=== PATIENT | male | born 1955 | race Caucasian/White ===

== ENCOUNTER 2018-06-18 12:29 | Emergency (ER) | payer MEDICARE, OTHER, SELFPAY ==
[2018-06-18 12:30] VITALS: BP 154/94; PULSE 56; RESP 14; TEMP 36.5; O2SAT 98; BMI 34.3
--- NOTE | 2018-06-18 13:06 | ED.DCSUM_ITS ---
- ER Visit Summary Date of Service: 06/18/18 Chief Complaint: [Redness and swelling to right side of face History of Present Illness: The patient is a 63 M [presents the emergency department with complaint of redness and swelling to the right side of his face ?3 days. Patient states that he initially thought he was getting a small pimple to the right cheek. Over last 24 hours he has had some increased redness and swelling. Patient was seen at primary care physician's office and sent to the ER for possible I&D of suspected abscess. Patient's had no fever or chills.] Physical Examination: [HEENT-PERRLA, EOMI. Cranial nerves II through XII grossly intact. TMs clear. Mucous membranes moist. No adenopathy. Right cheek-just lateral to the angle of the mouth there is a soft tissue swelling with erythema and mild cellulitis. There is no fluctuance noted. There is induration and some mild tenderness to palpation. Cardiovascular-regular rate and rhythm without murmur or ectopy Lungs-clear to auscultation, chest wall stable without crepitus or subcu emphysema Abdomen-normoactive bowel sounds, soft, nontender, no rebound or rigidity, no peritoneal signs. Extremities-intact ?4, normal range of motion, normal pulses, atraumatic] Test Results: [None indicated] Emergency Department Course and Treatment: [At this point I had a long discussion with patient and his and it is my opinion that this is not amenable to any type of I&D at this point as I feel this is all cellulitic and indurated and do not feel a discrete pocket of fluid to drain. Both the patient and the agree to proceed with antibiotics at this time and close observation. They understand this may progress to the point where he would require an I&D and they will return if that should happen.] Treatment Plan: [Patient will be started on Keflex and Bactrim] Disposition: [Discharged home in stable condition. Patient advised to follow- up with primary care physician within next 3-5 days. They are advised to return if worsening pain, increased redness, fever, or condition should worsen in any way.] Impression: [Facial cellulitis right cheek] This note was generated with [employer] dictation software. It may contain incorrect words, spelling, and punctuation that were not noted in review of the chart prior to signing ED Disposition - Plan for ED Patient: Chief Complaint: Abscess Referrals: Uzair Mathews MD [Primary Care Provider] -
--- NOTE | 2018-06-18 13:06 | ED.DEP ---
ED Disposition - Plan for ED Patient: Chief Complaint: Abscess Instructions: ED Cellulitis Facial Prescriptions: Cephalexin [Keflex] 500 mg PO Q6 #40 cap Smz/Tmp Ds [Bactrim Ds] 2 tab PO BID #28 tab Referrals: Uzair Mathews MD [Primary Care Provider] - 3-5 Days
[2018-06-18] MEDS: Cephalexin 250 MG Capsule 500 MG PO (13:29)
[2018-06-18] MEDS: Smz/Tmp Ds Tablet 2 TABLET PO (13:29)
[2018-06-18 13:33] VITALS: BP 149/96; PULSE 64; RESP 17
== END 2018-06-18 13:34 | disposition home or self-care (01) ==
LOC: ED 13:23
PROVIDERS: Emergency Provider Emergency Medicine; PCP Family Medicine
DX: L03.211 Cellulitis of face (principal); F41.9 Anxiety disorder, unspecified; Z72.0 Tobacco use; Z79.899 Other long term (current) drug therapy
CPT/HCPCS: 99283

== ENCOUNTER 2018-07-02 06:29 | Day surgery (SDC) | payer MEDICARE, OTHER, SELFPAY ==
[2018-07-02] VITALS (9 sets, daily range): BP systolic 116–134; BP diastolic 77–98; PULSE 50–58; RESP 16; TEMP 36.1–36.8; O2SAT 92–95; BMI 34.0
--- NOTE | 2018-07-02 08:00 | LES_PTH ---
PATIENT: KELVIN HERNANDEZ Jr. LOC[place] [facility] [place][id number] AGE/SX: 63/M ROOM: RE07/02/[address]: Dr. Rik Win MD : [id number] BED: DIS: 07/02/2018 SPEC #: [id number] RECD: 07/02/18 10:18 STATUS: MICHAEL LOU #: [id number] SUZETTE: 07/02/18 08:[address]: Rik Win DEPT: SURGICAL PATHOLOGY RECD BY: Narinder Jaimes ENTERED: 07/02/18 11:15 SP TYPE: Lesion OTHR DR: Dr. Lee Mathews MD Tissues: Mouth, NOS Procedures: Special Stain Group I Surgery Specimen Level III AFB Stain (control) GMS Stain (control) HEADER OPERATION: Excision cystic lesion, melolabial fold PRE-OP DIAGNOSIS: Infected cystic lesion right melolabial fold by commissure TISSUE SUBMITTED: Infected cystic lesion right melolabial fold by commissure MICROSCOPIC DIAGNOSIS Infected cystic lesion right melolabial fold by commissure, excision: Pieces of skin and skeletal muscle tissue with acute and chronic inflammation, foreign body giant cell reaction and abscess formation. Special stains for acid fast bacilli and fungi are negative for organisms; matched controls are appropriate. ALEXANDRO:fern 07/03/18 MICROSCOPIC DESCRIPTION Slides are reviewed. GROSS DESCRIPTION Received in fixative is one container labeled with the patient's name and designated infected cystic lesion right melolabial fold by commissure. The specimen consists of a piece of goldsmith-white skin with underlying tissue. The skin piece measures 1.5 x 0.3 cm and underlying tissue measures 1.5 x 1.5 x 0.7 cm. This piece is bisected. Also present in the container are three variable size pieces of goldsmith mucosal tissue measuring in aggregate 2.5 x 0.3 x 0.3 cm. The entire specimen is submitted in one cassette. / ALEXANDRO:fern 07/02/18 TC:2 CPT: 17659, 06476 x2
[2018-07-02] MEDS: Mupirocin Ointment 22gm Tube 1 APPLIC (08:28)
--- NOTE | 2018-07-02 09:28 | PCM.IMDPSTOP ---
Immediate Post-Op Note Date of Procedure: 07/02/18 Primary Surgeon/Physician: Rik Win flute teacher: None Pre-Operative Diagnosis: 1. 1.7 cm infected soft tissue mass right lower lip at melolabial fold by the commissure. 2. Family history of skin cancer. 3. Smoker. Post-Operative Diagnosis: 1. 1.7 cm infected soft tissue mass right lower lip at melolabial fold by the commissure involving underlying muscle. 2. Family history of skin cancer. 3. Smoker. Surgery/Procedure Performed:: Excision 1.7 cm infected soft tissue mass right lower lip at melolabial fold by the commissure involving underlying muscle with inferior nasolabial skin flap reconstruction (8 cm2). Description of Surgical Findings:: Patient is a 63 year old male who presents today for re-evaluation of an infected soft tissue mass on his right lower lip at melolabial fold by the commissure. He has finished the Bactrim. He is still on Keflex. He states his redness and swelling and pain have improved. With the warm compresses, he has noticed more drainage and improvement in his symptomatology. He denies any fever. He denies any bleeding. He denies any trauma. He has returned from [place], and states he had no problems. Today the patient underwent excision 1.7 cm infected soft tissue mass right lower lip at melolabial fold by the commissure involving underlying muscle with inferior nasolabial skin flap reconstruction (8 cm2). I used Naomi absorbable hemostat. Reference Number - [id number]. Lot Number - [id number]. Expiration - April 16, 2023. Estimated Blood Loss: 20 ml. Specimen's removed: 1. Infected soft tissue mass right lower lip at melolabial fold by the commissure to Pathology and Microbiology. 2. MRSA Wound DNA by PCR. Drains: None. Type of Anesthesia:: Local MAC - xylocaine with epinephrine and IV sedation. - Admit VTE Documentation VTE Present on Admission: No VTE Mechan Device Prophylaxis: SCD's VTE Pharm Prophylaxis ordered?: No
--- NOTE | 2018-07-02 09:38 | PCM.DC ---
You will use the following diet at home:: No restrictions Discharge Activity: May not drive while taking narcotic pain medications., May Shower - in 2 days., - - no heavy lifting. keep head elevated. May shower in (days): 2 May resume sexual activity in: No Restrictions Ice area for (Minutes): 5 - as needed for facial swelling. Weight Bearing Status: Weight bearing as tolerated Lifting Restrictions: 20 lbs. Keep extremity elevated above heart level: - - head elevated. Call your doctor if your incision/area has: Continuous Slow Oozing, Sudden Increased Bleeding, Increased Pain/ Swelling, Increased Redness, Foul Smelling Discharge, Swelling at the incision site Call your doctor if you observe: Fever of 101 or Higher, Coldness, Increased Pain, Shortness of breath, Chest pain, Calf discomfort, Uncontrolled pain Suture Line Care: - - antibiotic ointment to suture line daily. Cleanse incision/area with: - - may get incision wet in the shower in two days. Allergies/Adverse Reactions: Allergies sertraline [From Zoloft] Allergy (Verified 06/29/18 11:20) Other CP AND SOB Medications to take at Discharge escitalopram 10 mg tablet 10 mg PO QDAY 06/22/18 lisinopril 20 mg tablet 20 mg PO QDAY 06/22/18 lorazepam 2 mg tablet 10 mg PO ONCE PRN tab 06/22/18 Fluticasone 0.05% [Flonase Nasal Orient] 2 spray NASAL PRN PRN 06/29/18 Clindamycin HCl [Cleocin] 300 mg PO TID #21 cap 07/02/18 Diazepam [Valium] 5 mg PO BID PRN PRN #10 tab 07/02/18 Lactobacillus Acidophilus/Fos [Acidophilus Probiotic Tablet] 1 ea PO BID #15 tab 07/02/18 Oxycodone HCl/Acetaminophen [Percocet 5/325] 1 - 2 tab PO 4X/DAY PRN PRN 3 Days #20 tab 07/02/18 The following prescriptions were given: Diazepam [Valium] 5 mg PO BID PRN PRN #10 tab PRN Reason: Spasms Oxycodone HCl/Acetaminophen [Percocet 5/325] 1 - 2 tab PO 4X/DAY PRN PRN 3 Days #20 tab PRN Reason: Pain Lactobacillus Acidophilus/Fos [Acidophilus Probiotic Tablet] 1 ea PO BID #15 tab Clindamycin HCl [Cleocin] 300 mg PO TID #21 cap Primary Care Physician: Uzair Mathews MD [Primary Care Provider] - Test Results: Test results from this visit will be discussed in further detail at your follow-up appointment, if applicable. Please Follow Up With: Rik Win MD When: one week. call [phone] for appt. Proposed Discharge Date: 07/02/18
[2018-07-02] MEDS: oxyCODONE 5 MG Tablet 10 MG PO (10:09)
[2018-07-02 12:36] LABS: M R Staph aureus DNA By PCR Negative (Negative); Probe Check PASS; Specimen Processing Control PASS; Staph aureus DNA By PCR NEGATIVE (Negative)
--- NOTE | 2018-07-02 23:38 | PCM.OPRPT ---
Report of Operation Date of Procedure: 07/02/18 Pre-Operative Diagnosis: 1. 1.7 cm infected soft tissue mass right lower lip at melolabial fold by the commissure. 2. Family history of skin cancer. 3. Smoker. Post-Operative Diagnosis: 1. 1.7 cm infected soft tissue mass right lower lip at melolabial fold by the commissure involving underlying muscle. 2. Family history of skin cancer. 3. Smoker. Surgery/Procedure Performed:: Excision 1.7 cm infected soft tissue mass right lower lip at melolabial fold by the commissure involving underlying muscle with inferior nasolabial skin flap reconstruction (8 cm2). Description of Surgical Findings:: Patient is a 63 year old male who presents today for re-evaluation of an infected soft tissue mass on his right lower lip at melolabial fold by the commissure. He has finished the Bactrim. He is still on Keflex. He states his redness and swelling and pain have improved. With the warm compresses, he has noticed more drainage and improvement in his symptomatology. He denies any fever. He denies any bleeding. He denies any trauma. He has returned from [place], and states he had no problems. Patient was informed of the risks and complications of the procedure including alternatives to surgery. These were discussed with the patient personally. Patient voices understanding and wishes to proceed. Some of the risks and complications were included in a form from the [employer]. Encouraged patient to stop smoking as it may have deleterious effects on wound healing. I used Naomi absorbable hemostat. Reference Number - [id number]. Lot Number - [id number]. Expiration - April 16, 2023. net wpf developer: None Type of Anesthesia:: Local MAC - xylocaine with epinephrine and IV sedation. Specimen's removed: 1. Infected soft tissue mass right lower lip at melolabial fold by the commissure to Pathology and Microbiology. 2. MRSA Wound DNA by PCR. Drains: None. Estimated Blood Loss (mL): 20 ml. Description of Procedure: Patient was taken to OR in supine position and was given IV sedation. His face was prepped and draped in the usual fashion. SCD's were placed for DVT prophylaxis. Perioperative antibiotics were given intravenously. Using xylocaine with epinephrine, the infected soft tissue mass right lower lip at melolabial fold by the commissure was infiltrated. After waiting 5 minutes for the anesthetic to take effect, I made an oblique elliptical incision around the soft tissue mass. Dissection was carried down into the subcutaneous tissue. A lot of scar tissue was present. The infected soft tissue mass was adherent to the underlying muscle. A cuff of muscle was included with the excision to minimize recurrence. The soft tissue mass was adherent to the skin and a wider circular incision was made to aid in the dissection of the mass to minimize recurrence. No purulent drainage was seen. No acute infection was noted. Preoperative Doxycycline was helpful in getting control of this infection in order to excise it a little easier. The mass was sent to Pathology for analysis to rule out carcinoma. Some of the tissue was sent to Microbiology for culture. MRSA Wound DNA by PCR was also done. A positive culture will necessitate antibiotic therapy. The wound was irrigated with saline. Hemostasis was obtained with electrocautery. An inferiorly based nasolabial flap was designed in the nasolabial fold with the rotation point at the commissure to minimize distortion. These markings were infiltrated with xylocaine with epinephrine. After waiting 5 minutes for the anesthetic to take effect, incisions were made and the nasolabial flap was elevated on a subcutaneous pedicle down to the level of the facial musculature. The flap was easily transposed into the defect with minimal tension and minimal distortion. Hemostasis was obtained with electrocautery. I then sprayed Naomi absorbable hemostat into the wound to minimize seroma formation. Once the flap was transposed into the defect, the wounds were closed in multiple layers with 5-0 Monocryl interrupted sutures for the deep dermis and subcutaneous tissue. The skin was approximated with 6-0 Prolene simple interrupted sutures. Steri-strips were applied to the suture line followed by antibiotic ointment. The size of the defect and the size of the flap necessary to close the defect was 8 cm2. Patient tolerated the procedure well and was sent to PACU in satisfactory condition. He will be sent home on antibiotics and pain medication. He will keep his head elevated during the initial postop period. He will be on a lifting restriction for a week or so. He will followup in the office in a week for a wound check as well as for discussion of the pathology report and for discussion of the Microbiology report and to remove the sutures. Grafts/Implants Used: None. - Complications None. - Admit VTE Documentation VTE Present on Admission: No VTE Mechan Device Prophylaxis: SCD's VTE Pharm Prophylaxis ordered?: No Code Visit Surgery Charges CPT - 02915 ICD-10 - L03.211, R22.0, Z80.8, F17.200
== END 2018-07-02 11:02 | disposition home or self-care (01) ==
LOC: SDC 06:30 → AC 06:30
PROVIDERS: Family Provider Family Medicine; PCP Family Medicine; Visit Provider Surgery
PROC: (CPT 14060; principal; 2018-07-02 07:50)
DX: K13.0 Diseases of lips (principal); I10 Essential (primary) hypertension; K21.9 Gastro-esophageal reflux disease without esophagitis; F41.9 Anxiety disorder, unspecified; F32.9 Major depressive disorder, single episode, unspecified; F17.200 Nicotine dependence, unspecified, uncomplicated; Z80.8 Family history of malignant neoplasm of other organs or systems; Z79.82 Long term (current) use of aspirin; Z79.899 Other long term (current) drug therapy
CPT/HCPCS: 14060; 87070; 87075; 87077; 87102; 87186; 87205; 87206; 87640; 88304; 88305; 88312; J7120; J2405

== ENCOUNTER → 2018-12-05 06:41 | Outpatient (CLI) | payer MEDICARE, OTHER, SELFPAY ==
--- NOTE | 2018-12-05 06:55 | CT_ITS ---
STUDY: LOW DOSE CT LUNG CANCER SCREENING REASON FOR EXAM: Male, 63 years old. Plaque of abuse. Occasional cigars and cigarettes since age 13. Now age 48. Screening. RADIATION DOSAGE (If Supplied By Facility): CTDIvol = ( 4.02 ) mGy, DLP = ( 153.00 ) mGycm TECHNIQUE: No contrast was administered. Low dose technique was utilized (average mAS-38 and kVp 120). 1.25 mm axial source images with a slice interval of 1.25-mm were reconstructed in lung windows. Coronal and sagittal 2-D MPR Nodule measured using lung windows on PACS and/or independent workstation with automated measurement of minimum and maximum diameter. Nodule measurement reported as average diameter rounded to the nearest whole number. Growth is defined as an increase ins size of greater than 1.5 mm. COMPARISON: X-ray chest 12/11/2008. CT abdomen and pelvis 11/09/2011. FINDINGS: Total lung nodules (excluding granulomas): None Emphysema: None. Endobronchial lesion: None. Aorta: Borderline aneurysmal ectasia of the ascending aorta and proximal arch up to 3.95 cm. Minimal arch atherosclerosis. Coronary arteries: No visible coronary calcifications. Heart: No significant cardiomegaly. No pericardial effusion. Pulmonary artery: Nondilated. Mediastinal nodes: There is no mediastinal or hilar mass or lymphadenopathy. Normal esophagus. Other chest and abdominal findings: Supraclavicular and body wall soft tissues, osseous structures, and upper abdomen exhibit no acute abnormalities. CT/Low Dose CT Lung Screening IMPRESSION: No pulmonary nodules. ACR lung RADS category 1, negative, less than 1% chance of malignancy. Recommend continued annual low dose screening chest CT. Borderline aneurysmal ectasia of the ascending aorta and proximal arch 4.95 cm. IMPORTANT NOTES FOR USE: ACR Lung-RADS Version 1.0 Assessment Categories Release Date: March 17, 2014 Category: Coded 0-4 bases on nodule(s) with highest degree of suspicion. Negative screen is defined as categories 1 and 2; a positive screen is defined as categories 3 and 4. Category 3 and 4A nodules that are unchanged on interval CT should be coded as category 2, and individuals returned to screening in 12 months. Category 4X: Category 3 or 4 nodules with additional imaging findings that increase the suspicion of lung cancer, such as spiculation, GGN that doubles in size in 1 year, enlarged lymph notes, etc. Category Modifiers: S (significant finding unrelated to lung cancer) and C (prior history of treated lung cancer) may be added to the 0-4 Lung-RADS Electronically Signed: Narinder Dan MD at 16:00 EST Tel , Service support ,
--- NOTE | 2018-12-05 07:04 | US_ITS ---
PROCEDURES: ULTRASOUND AORTA REASON FOR EXAM: Male, 63 years old. Aortic aneurysm. Screening. Smoker. TECHNIQUE: Ultrasound evaluation of the aorta was performed with real-time and static fischer-scale and color Doppler imaging. COMPARISON: Low dose screening chest CT 12/05/2017. CT abdomen and pelvis of 2010. FINDINGS: Proximal abdominal aorta 28 x 26 mm. Mid abdominal aorta 22 x 23 mm. Distal abdominal aorta 19 x 22 mm. Right common iliac 14 x 16 mm. Left common iliac 14 x 17 mm. No aneurysm. Appropriate arterial waveforms. US/Aorta IMPRESSION: There is no evidence of abdominal aortic or iliac artery aneurysm. Electronically Signed: Narinder Dan MD at 16:35 EST Tel , Service support ,
[2018-12-05 07:48] LABS: Anion Gap 5 (5-15); BUN 9 mg/dL (7-18); BUN/Creat Ratio 9.6 RATIO (10-20); Calcium,Total 8.1 mg/dL (8.5-10.1); Chloride 106 mmol/L (98-107); Cholesterol 148 mg/dL (200); Creatinine, Serum 0.93 mg/dL (0.70-1.30); EST Glomerular Filtration Rate 86 mL/min (>60); Est Glom Filt Rate - Afr Amer 104 mL/min (>60); Glucose 94 mg/dL (74-106); High Density Lipoprotein 44 mg/dL; PSA,Total - Annual Screen 0.69 ng/mL (0.00-4.00); Potassium 4.7 mmol/L (3.5-5.1); Sodium Level 142 mmol/L (136-145); Triglycerides 74 mg/dL; Very Low Density Lipoprotein 15 mg/dL (5-40)
--- OUTSIDE RECORDS SUMMARY | 2019-02-08 22:14 | XMS RPT_ITS ---
:1955 Author Organization OH[facility] Care Team Providers Name Role Phone Lee Mathews Attending Unavailable Lee Mathews Referring Unavailable Bisi, Christopher Primary Care Unavailable Subha New Attending Unavailable Rik Win Attending Unavailable Lee Mathews Referring Unavailable Rik Win Attending Unavailable Lee Mathews Referring Unavailable Rik Win Attending Unavailable Rik Win Referring Unavailable Lee Mathews Primary Care Unavailable Rik Win Attending Unavailable Lee Mathews Referring Unavailable Bisi Christopher Primary Care Unavailable Rik Win Attending Unavailable Lee Mathews Referring Unavailable Rik Win Attending Unavailable Lee Mathews Referring Unavailable Lee Mathews Primary Care Unavailable PROBLEMS PROBLEMS DATE TYPE CONDITION / CODE ATTENDING STATUS SOURCE 07/02/2018 Unknown G89.18 - Other acute Rik Win [facility] postprocedural pain Community / G89.18(ICD-10) Hospital Repository 07/11/2018 Unknown L03.211 - Cellulitis Rik Win Active [facility] of face / Community L03.211(ICD-10) Hospital Repository 07/11/2018 Unknown R22.0 - Localized Rik Win Active [facility] swelling, mass and Community lump, head / Hospital R22.0(ICD-10) Repository 07/11/2018 Unknown Z80.8 - Family Rik Win Active [facility] history of malignant Community neoplasm of other Hospital organs or systems / Repository Z80.8(ICD-10) 07/11/2018 Unknown F17.200 - Nicotine Rik Win Active [facility] dependence, Community unspecified, Hospital uncomplicated / Repository F17.200(ICD-10) PROCEDURES PROCEDURES No Procedure Records FoundRESULTS RESULTS AORTA Observed: 12/05/2018 Status: F Source: [place] 7:05 AM [facility] HOSPITAL REPOSITORY [facility] Imaging Services [address] [place] [address] Aorta MR#: [id number] Acct: [id number] Name: KELVIN HERNANDEZ JrSavita Rep #: [id number] : 1955 M 63 From: Narinder Dan MD PCP: Lee Mathews MD Status: REG CLI Study: Aorta Date of Exam: 12/05/18 Exam# [id number] Ordering Dr: Uzair Mathews MD PROCEDURES: ULTRASOUND AORTA REASON FOR EXAM: Male, 63 years old. Aortic aneurysm. Screening. Smoker. TECHNIQUE: Ultrasound evaluation of the aorta was performed with real-time and static fischer-scale and color Doppler imaging. COMPARISON: Low dose screening chest CT 12/05/2017. CT abdomen and pelvis of 2010. FINDINGS: Proximal abdominal aorta 28 x 26 mm. Mid abdominal aorta 22 x 23 mm. Distal abdominal aorta 19 x 22 mm. Right common iliac 14 x 16 mm. Left common iliac 14 x 17 mm. No aneurysm. Appropriate arterial waveforms. US/Aorta IMPRESSION: There is no evidence of abdominal aortic or iliac artery aneurysm. Electronically Signed: Narinder Dan MD at 16:35 EST Tel , Service support , CC: Lee Mathews MD Ice Puller: Signed LOW DOSE CT LUNG Observed: 12/05/2018 Status: F Source: [place] SCREENING 6:55 AM [facility] REPOSITORY [facility] Imaging Services [address] [place], [place] [address] [address] Lung Screening MR#: [id number] Acct: [id number] Name: KELVIN HERNANDEZ JrSavita Rep #: [id number] : 1955 63 From: Narinder Dan MD PCP: Lee Mathews MD Status: REG CLI Study: Low Dose CT Lung Screening Date of Exam: 12/05/18 Exam# [id number] Ordering Dr: Uzair Mathews MD STUDY: LOW DOSE CT LUNG CANCER SCREENING REASON FOR EXAM: Male, 63 years old. Plaque of abuse. Occasional cigars and cigarettes since age 13. Now age 48. Screening. RADIATION DOSAGE (If Supplied By Facility): CTDIvol = ( 4.02 ) mGy, DLP = ( 153.00 ) mGycm TECHNIQUE: No contrast was administered. Low dose technique was utilized (average mAS-38 and kVp 120). 1.25 mm axial source images with a slice interval of 1.25- mm were reconstructed in lung windows. Coronal and sagittal 2-D MPR Nodule measured using lung windows on PACS and/or independent workstation with automated measurement of minimum and maximum diameter. Nodule measurement reported as average diameter rounded to the nearest whole number. Growth is defined as an increase ins size of greater than 1.5 mm. COMPARISON: X-ray chest 12/11/2008. CT abdomen and pelvis 11/09/2011. FINDINGS: Total lung nodules (excluding granulomas): None Emphysema: None. Endobronchial lesion: None. Aorta: Borderline aneurysmal ectasia of the ascending aorta and proximal arch up to 3.95 cm. Minimal arch atherosclerosis. Coronary arteries: No visible coronary calcifications. Heart: No significant cardiomegaly. No pericardial effusion. Pulmonary artery: Nondilated. Mediastinal nodes: There is no mediastinal or hilar mass or lymphadenopathy. Normal esophagus. Other chest and abdominal findings: Supraclavicular and body wall soft tissues, osseous structures, and upper abdomen exhibit no acute abnormalities. CT/Low Dose CT Lung Screening IMPRESSION: No pulmonary nodules. ACR lung RADS category 1, negative, less than 1% chance of malignancy. Recommend continued annual low dose screening chest CT. Borderline aneurysmal ectasia of the ascending aorta and proximal arch 4.95 cm. IMPORTANT NOTES FOR USE: ACR Lung-RADS Version 1.0 Assessment Categories Release Date: March 17, 2014 Category: Coded 0-4 bases on nodule(s) with highest degree of suspicion. Negative screen is defined as categories 1 and 2; a positive screen is defined as categories 3 and 4. Category 3 and 4A nodules that are unchanged on interval CT should be coded as category 2, and individuals returned to screening in 12 months. Category 4X: Category 3 or 4 nodules with additional imaging findings that increase the suspicion of lung cancer, such as spiculation, GGN that doubles in size in 1 year, enlarged lymph notes, etc. Category Modifiers: S (significant finding unrelated to lung cancer) and C (prior history of treated lung cancer) may be added to the 0-4 Lung-RADS Electronically Signed: Narinder Dan MD at 16:00 EST Tel , Service support , CC: Lee Mathews MD Ice Puller: Signed BASIC METABOLIC Collected: 12/05/2018 Status: F Source: [place] PROFILE (BMP) 6:46 AM [facility] REPOSITORY TYPE CODE TESTS RESULT OUT OF RANGE REFERENCE UNITS LAB L501.0100 74-106 mg/dL Normal GLU 94 Result Comment: Please note revised GLUCOSE reference range effective 2017. LAB L501.1000 7-18 mg/dL Normal BUN 9 LAB L501.1100 0.70-1.30 mg/dL Normal CREAT,SERUM 0.93 Result Comment: The validity of the calculated GFR AND GFRAA in patients over 70 years has not been determined. Clinical correlation is essential. LAB L501.1110 >60 mL/min Normal EST GFR 86 Result Comment: Non- GFR Calc LAB L501.1115 >60 mL/min Normal EST GFR - AA 104 Result Comment: GFR Calc LAB L501.1300 10-20 RATIO Low BUN/CRE 9.6 LAB L501.2200 8.5-10.1 mg/dL Low CA 8.1 LAB L501.5300 136-145 mmol/L Normal NA 142 LAB L501.5600 3.5-5.1 mmol/L Normal K 4.7 LAB L501.5900 98-107 mmol/L Normal CL 106 LAB L501.6100 21.0-32.0 mmol/L Normal CO2 31.0 LAB L501.6200 5-15 Normal GAP 5 Performed By: #### L500.2500, L500.4100, L501.9910 #### [facility] [address] [place], [place], [address] LIPID PROFILE Collected: 12/05/2018 Status: F Source: [place] 6:46 AM [facility] REPOSITORY TYPE CODE TESTS RESULT OUT OF RANGE REFERENCE UNITS LAB L501.4900 200 mg/dL Normal CHOL 148 Result Comment: <200 mg/dL Desirable 200-240 mg/dL Borderline >240 mg/dL High Risk LAB L501.5000 mg/dL Normal TRIG 74 Result Comment: The drugs N-Acetylcysteine and Metamizole may falsely depress this assay. Serum Triglycerides Reference Interval Normal <150 mg/dL Borderline high 150 - 199 mg/dL High 200 - 499 mg/dL Very High > or = 500 mg/dL LAB L501.6400 mg/dL Normal HDL 44 Result Comment: The drugs N-Acetylcysteine and Metamizole may falsely depress this assay. Reference Range HDL <40 mg/dL Low HDL Cholesterol HDL >or= 60 mg/dL High HDL Cholesterol LAB L501.6500 0-130 mg/dL Normal LDL 89 LAB L501.6600 5-40 mg/dL Normal VLDL 15 Performed By: #### L500.2500, L500.4100, L501.9910 #### [facility] [address] [place], [address] PSA,TOTAL - ANNUAL Collected: 12/05/2018 Status: F Source: [place] SCREEN 6:46 AM [facility] REPOSITORY TYPE CODE TESTS RESULT OUT OF RANGE REFERENCE UNITS LAB L501.9910 0.00-4.00 ng/mL Normal PSA,TOT 0.69 SCREEN Result Comment: This test was performed using the TPSA assay method for the [employer] chemistry system. Values obtained with different assay methods cannot be used interchangably. When changing PSA assays in the course of monitoring a patient, additional sequential testing should be carried out to confirm baseline values. Performed By: #### L500.2500, L500.4100, L501.9910 #### [facility] [address] [place], [address] PLASTIC SURGERY Observed: 08/01/2018 Status: F Source: [place] VISIT REPORT 11:14 AM [facility] REPOSITORY [facility] [address] [place] [address] OFFICE VISIT Date of Service: 07/26/18 MR#: [id number] Acct: [id number] Name: KELVIN HERNANDEZ [place] Rep #: [id number] : 1955 Provider: Rik Win MD Age/Sex: 63/M Location: [facility] Status: Signed Intake Vital Signs07/26/18 Blood Pressure 157/107 07/26/18 Blood Pressure Location Lt brachial 07/26/18 Blood Pressure Position Sitting 07/26/18 Respiratory Rate 16 Intake Visit Reasons: post op surgery 07/02/18 Supervisor Of Communications Required: No Accompanied by: None Is patient in pain?: No Allergies sertraline [From Zoloft] Allergy (Verified 07/26/18 15:12) Other Medications lisinopril 20 mg tablet 20 mg PO QDAY 06/22/18 [History Confirmed 07/10/18] lorazepam 2 mg tablet 10 mg PO ONCE PRN tab 06/22/18 [History Confirmed 07/10/18] Fluticasone 0.05% [Flonase Nasal [place]] 2 spray NASAL PRN PRN 06/29/18 [History Confirmed 07/10/18] Diazepam [Valium] 5 mg PO BID PRN PRN #10 tab 07/02/18 [Rx Confirmed 07/10/18] Lactobacillus Acidophilus/Fos [Acidophilus Probiotic Tablet] 1 ea PO BID #15 tab 07/02/18 [Rx Confirmed 07/10/18] Oxycodone HCl/Acetaminophen [Percocet 5/325] 1 - 2 tab PO 4X/DAY PRN PRN 3 Days #20 tab 07/02/18 [Rx Confirmed 07/10/18] PFSH Medical History Anxiety and depression (Acute) Cancer (Acute) High blood pressure (Chronic) Surgical History History of appendectomy (Acute) Family History Father History of blood clots Lupus Bowel disease Colon cancer Skin cancer CVA (cerebral vascular accident) Mother Hypertension Social History Smoking Status: Current some day smoker additional social history: DOES USE ASPIRIN HPI post op surgery 07/02/18: Details: Postop visit from his recent surgery on 07/02/2018 where he underwent excision 1.7 cm infected soft tissue mass right lower lip at melolabial fold by the commissure involving underlying muscle with inferior nasolabial skin flap reconstruction (8 cm2). He denies any complaints today. Incision is dry and intact. The flap has healed well. There is good contour. Mild swelling seen with some pincushioning. Flap is softer. His smile is symmetrical. Pathology showed acute and chronic inflammation, foreign body giant cell reaction and abscess formation. Operative culture showed Staphylococcus epidermidis. He has finished the Cleocin. Bimanual massage the incision with skin lotion daily to help with lymphatic drainage and soften up the scars and improve the pincushioning. Follow up on an as needed basis. If swelling persists in 9-12 months with residual pincushioning, can debulk the flap. Assessment AND Plan Problems 1. Localized swelling, mass, and lump of head R22.0 2. Abscess of face L02.01 3. Family history of skin cancer Z80.8 4. Cellulitis of face L03.211 5. Smoker F17.200 Coding Level of Care Code Global Post Op Diagnoses Localized swelling, mass, and lump of head R22.0 Abscess of face L02.01 Family history of skin cancer Z80.8 Cellulitis of face L03.211 Smoker F17.200 08/01/18 1005 <Electronically signed by Rik Win MD> Date Rik Win MD 08/01/18 1114<Electronically signed by Isabel MARTIN> Cosigner Signature: Date (if applicable) Isabel Stauffer CC: PLASTIC SURGERY Observed: 07/20/2018 Status: F Source: [place] VISIT REPORT 3:17 PM [facility] REPOSITORY [facility] [address] [place] [address] OFFICE VISIT Date of Service: 07/10/18 MR#: [id number] Acct: [id number] Name: KELVIN HERNANDEZ Rep #: [id number] : 1955 Provider: Rik Win MD Age/Sex: 63/M Location: [facility] Status: Signed Intake Vital Signs07/10/18 Blood Pressure 127/88 07/10/18 Blood Pressure Location Lt brachial 07/10/18 Blood Pressure Position Sitting 07/10/18 Respiratory Rate 16 Intake Visit Reasons: postop surgery 07/02/18 Supervisor Of Communications Required: No Accompanied by: None Is patient in pain?: Yes (RIGHT LOWER CHEEK STINGING PAIN) Pain scale (1-10): 2 Allergies sertraline [From Zoloft] Allergy (Verified 07/10/18 11:35) Other Medications escitalopram 10 mg tablet 10 mg PO QDAY 06/22/18 [History Confirmed 07/10/18] lisinopril 20 mg tablet 20 mg PO QDAY 06/22/18 [History Confirmed 07/10/18] lorazepam 2 mg tablet 10 mg PO ONCE PRN tab 06/22/18 [History Confirmed 07/10/18] Fluticasone 0.05% [Flonase Nasal [place]] 2 spray NASAL PRN PRN 06/29/18 [History Confirmed 07/10/18] Diazepam [Valium] 5 mg PO BID PRN PRN #10 tab 07/02/18 [Rx Confirmed 07/10/18] Lactobacillus Acidophilus/Fos [Acidophilus Probiotic Tablet] 1 ea PO BID #15 tab 07/02/18 [Rx Confirmed 07/10/18] Oxycodone HCl/Acetaminophen [Percocet 5/325] 1 - 2 tab PO 4X/DAY PRN PRN 3 Days #20 tab 07/02/18 [Rx Confirmed 07/10/18] clindamycin HCl 300 mg capsule 300 mg PO TID 14 Days #42 cap 07/11/18 [Rx Confirmed 07/11/18] PFSH Medical History Anxiety and depression (Acute) Cancer (Acute) High blood pressure (Chronic) Surgical History History of appendectomy (Acute) Family History Father History of blood clots Lupus Bowel disease Colon cancer Skin cancer CVA (cerebral vascular accident) Mother Hypertension Social History Smoking Status: Current some day smoker additional social history: DOES USE ASPIRIN HPI postop surgery 07/02/18: Details: Postop visit from his recent surgery on 07/02/2018 where he underwent excision 1.7 cm infected soft tissue mass right lower lip at melolabial fold by the commissure involving underlying muscle with inferior nasolabial skin flap reconstruction (8 cm2). He denies any complaints today. Incision is dry and intact. The flap is healing well. There is good contour. His smile is symmetrical. Pathology was discussed with the patient. It showed acute and chronic inflammation, foreign body giant cell reaction and abscess formation. Operative culture was discussed with the patient. It showed Staphylococcus epidermidis. Wrote a script for Cleocin for 14 days (42 tabs). Sutures were removed today with no difficulty. Massage the incision with skin lotion daily to help soften up the scars. Keep head elevated. Follow up in 2 weeks. Assessment AND Plan Problems 1. Localized swelling, mass, and lump of head R22.0 2. Abscess of face L02.01 3. Family history of skin cancer Z80.8 4. Cellulitis of face L03.211 5. Smoker F17.200 Medications Changed: Coding Level of Care Code Global Post Op Diagnoses Localized swelling, mass, and lump of head R22.0 Abscess of face L02.01 Family history of skin cancer Z80.8 Cellulitis of face L03.211 Smoker F17.200 07/20/18 1054 <Electronically signed by Rik Win MD> Date Rik Win MD 07/20/18 1517<Electronically signed by Isabel MARTIN> Cosigner Signature: Date (if applicable) Isabel Stauffer CC: OPERATIVE REPORT Observed: 07/08/2018 Status: F Source: [place] 7:55 PM [facility] REPOSITORY [facility] Medical Records Department [address] [place] [address] Operative Report 07/02/18 2338 MR#: [id number] Acct: [id number] Name: KELVIN HERNANDEZ JrSavita Rep #: [id number] : 1955 63 From: Rik Win MD PCP: Lee Mathews MD Status: [facility] Location: [place] Report of Operation Date of Procedure: 07/02/18 Pre-Operative Diagnosis: 1. 1.7 cm infected soft tissue mass right lower lip at melolabial fold by the commissure. 2. Family history of skin cancer. 3. Smoker. Post-Operative Diagnosis: 1. 1.7 cm infected soft tissue mass right lower lip at melolabial fold by the commissure involving underlying muscle. 2. Family history of skin cancer. 3. Smoker. Surgery/Procedure Performed:: Excision 1.7 cm infected soft tissue mass right lower lip at melolabial fold by the commissure involving underlying muscle with inferior nasolabial skin flap reconstruction (8 cm2). Description of Surgical Findings:: Patient is a 63 year old male who presents today for re-evaluation of an infected soft tissue mass on his right lower lip at melolabial fold by the commissure. He has finished the Bactrim. He is still on Keflex. He states his redness and swelling and pain have improved. With the warm compresses, he has noticed more drainage and improvement in his symptomatology. He denies any fever. He denies any bleeding. He denies any trauma. He has returned from [place], and states he had no problems. Patient was informed of the risks and complications of the procedure including alternatives to surgery. These were discussed with the patient personally. Patient voices understanding and wishes to proceed. Some of the risks and complications were included in a form from the [employer] [place] [employer]. Encouraged patient to stop smoking as it may have deleterious effects on wound healing. I used Naomi absorbable hemostat. Reference Number - [id number]. Lot Number - [id number]. Expiration - April 16, 2023. 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 Specimen's removed: 1. Infected soft tissue mass right lower lip at melolabial fold by the commissure to Pathology and Microbiology. 2. MRSA Wound DNA by PCR. Drains: None. Estimated Blood Loss (mL): 20 ml. Description of Procedure: Patient was taken to OR in supine position and was given IV sedation. His face was prepped and draped in the usual fashion. SCD's were placed for DVT prophylaxis. Perioperative antibiotics were given intravenously. Using xylocaine with epinephrine, the infected soft tissue mass right lower lip at melolabial fold by the commissure was infiltrated. After waiting 5 minutes for the anesthetic to take effect, I made an oblique elliptical incision around the soft tissue mass. Dissection was carried down into the subcutaneous tissue. A lot of scar tissue was present. The infected soft tissue mass was adherent to the underlying muscle. A cuff of muscle was included with the excision to minimize recurrence. The soft tissue mass was adherent to the skin and a wider circular incision was made to aid in the dissection of the mass to minimize recurrence. No purulent drainage was seen. No acute infection was noted. Preoperative Doxycycline was helpful in getting control of this infection in order to excise it a little easier. The mass was sent to Pathology for analysis to rule out carcinoma. Some of the tissue was sent to Microbiology for culture. MRSA Wound DNA by PCR was also done. A positive culture will necessitate antibiotic therapy. The wound was irrigated with saline. Hemostasis was obtained with electrocautery. An inferiorly based nasolabial flap was designed in the nasolabial fold with the rotation point at the commissure to minimize distortion. These markings were infiltrated with xylocaine with epinephrine. After waiting 5 minutes for the anesthetic to take effect, incisions were made and the nasolabial flap was elevated on a subcutaneous pedicle down to the level of the facial musculature. The flap was easily transposed into the defect with minimal tension and minimal distortion. Hemostasis was obtained with electrocautery. I then sprayed Naomi absorbable hemostat into the wound to minimize seroma formation. Once the flap was transposed into the defect, the wounds were closed in multiple layers with 5-0 Monocryl interrupted sutures for the deep dermis and subcutaneous tissue. The skin was approximated with 6-0 Prolene simple interrupted sutures. Steri-strips were applied to the suture line followed by antibiotic ointment. The size of the defect and the size of the flap necessary to close the defect was 8 cm2. Patient tolerated the procedure well and was sent to PACU in satisfactory condition. He will be sent home on antibiotics and pain medication. He will keep his head elevated during the initial postop period. He will be on a lifting restriction for a week or so. He will followup in the office in a week for a wound check as well as for discussion of the pathology report and for discussion of the Microbiology report and to remove the sutures. Grafts/Implants Used: None. - Complications None. - Admit VTE Documentation VTE Present on Admission: No VTE Mechan Device Prophylaxis: SCD's VTE Pharm Prophylaxis ordered?: No Code Visit Surgery Charges CPT - 66618 ICD-10 - L03.211, R22.0, Z80.8, F17.200 07/08/181954 <Electronically signed by Rik Win MD> Date Rik Win MD CC: Lee Mathews MD; Rik Win MD Signed PLASTIC SURGERY Observed: 07/02/2018 Status: F Source: [place] VISIT REPORT 2:10 PM [facility] REPOSITORY [facility] [address] [address] OFFICE VISIT Date of Service: 06/22/18 MR#: [id number] Acct: [id number] Name: KELVIN HERNANDEZ Jr. Rep #: [id number] : 1955 Provider: Rik Win MD Age/Sex: 63/M Location: [facility] Status: Signed Intake Vital Signs06/22/18 Height 5 ft 9 in 06/22/18 Weight: 230 lb 2 oz Intake Visit Reasons: evaluation soft tissue mass Supervisor Of Communications Required: No Accompanied by: None Is patient in pain?: Yes (RIGHT LOWER FACIAL CHEEK BURNING WHEN TOUCHED) Pain scale (1-10): 3 Allergies sertraline [From Zoloft] Allergy (Verified 06/29/18 11:20) Other Medications escitalopram 10 mg tablet 10 mg PO QDAY 06/22/18 [History Confirmed 07/02/18] lisinopril 20 mg tablet 20 mg PO QDAY 06/22/18 [History Confirmed 07/02/18] lorazepam 2 mg tablet 10 mg PO ONCE PRN tab 06/22/18 [History Confirmed 07/02/18] Fluticasone 0.05% [Flonase Nasal [place]] 2 spray NASAL PRN PRN 06/29/18 [History Confirmed 07/02/18] Clindamycin HCl [Cleocin] 300 mg PO TID #21 cap 07/02/18 [Rx] Diazepam [Valium] 5 mg PO BID PRN PRN #10 tab 07/02/18 [Rx] Lactobacillus Acidophilus/Fos [Acidophilus Probiotic Tablet] 1 ea PO BID #15 tab 07/02/18 [Rx] Oxycodone HCl/Acetaminophen [Percocet 5/325] 1 - 2 tab PO 4X/DAY PRN PRN 3 Days #20 tab 07/02/18 [Rx] PFSH Medical History Anxiety and depression (Acute) Cancer (Acute) High blood pressure (Chronic) Surgical History History of appendectomy (Acute) Family History Father History of blood clots Lupus Bowel disease Colon cancer Skin cancer CVA (cerebral vascular accident) Mother Hypertension Social History Smoking Status: Current some day smoker additional social history: DOES USE ASPIRIN HPI evaluation soft tissue mass: Details: HISTORY OF PRESENT ILLNESS Patient is a 63 year old male who presents today for evaluation of an infected soft tissue mass on his right lower lip at melolabial fold by the commissure that started 7 days ago. He developed redness and swelling and pain and went to his PCP on 06/18/18 for evaluation and was sent to the ED for further evaluation. He was started on Bactrim and Keflex. He also started warm compresses. The infected soft tissue mass started to drain today. Patient states that the swelling and redness have decreased since he was started on the antibiotics. He denies any fever. He denies any bleeding. He denies any trauma. REVIEW OF SYSTEMS General - Denies fear, fatigue, and weight loss. Eyes - Denies cataracts and glaucoma. ENT - Denies nasal congestion and sore throat. Endocrine - Denies excessive thirst and urination. Skin - Denies skin cancer. There is an infected soft tissue mass on his right lower lip at melolabial fold by the commissure. Musculoskeletal - Denies joint pain, joint stiffness, weakness of muscles and joints, back pain, and arthritis. Neuro - Denies headaches. Cardiovascular - Denies chest pain, fatigue, and shortness of breath with exertion. Psych - Denies anxiety and depression. Has claustrophobia. Respiratory - Denies chronic cough and shortness of breath. Gastrointestinal - Denies nausea, vomiting, diarrhea, and constipation. Hematologic - Denies abnormal bruising and bleeding. Genitourinary - Denies hematuria. Has urinary frequency. Has incontinence. PHYSICAL EXAM General - Alert and oriented. HEENT - PERRL. EOMI. Throat is clear. On the right lower lip at melolabial fold by the commissure is an infected soft tissue mass. Measures 3 cm. Some redness seen. Mild induration. No fluctuance. No purulent drainage. Mass is mobile. There is also a small scabby area on the skin overlying the mass. His smile is symmetrical. Neck - Supple and non-tender. No cervical adenopathy. Lungs- Clear to auscultation. Heart - Regular rate and rhythm. Abdomen - Soft and non distended. Extremities - FROM. No axillary adenopathy. Radial pulses are palpable. Neuro - CN II-XII grossly intact. Psych - Normal and mood and affect. ASSESSMENT 1. 3 cm infected soft tissue mass right lower lip at melolabial fold by the commissure. 2. Family history of skin cancer. 3. Smoker. PLAN Will continue the Keflex and Bactrim that were started in the ER. Encourage warm compresses several times a day to the area to promote drainage. Patient is going to [place] for the next several days to visit family. Will have him follow up next 06/28/18 when he gets home for re-evaluation. Instructed him if his symptoms worsen while he is in [place] to seek attention at the local ED. Discussed with him that ideally I want to wait until the swelling and inflammation and infection subside and then proceed with excision of the soft tissue mass with one operation since I should be able to close the incision. If the infection were to worsen, then he would need an initial incision and drainage of the infection with the wound left open and packed daily with a Silver dressing. Once the infection is under control and the inflammation subsides, can then proceed with delayed secondary wound closure with a possible skin flap. If the infection were to worsen on po antibiotics, I would admit him to the hospital for IV antibiotics before proceeding with surgery. If I were to operate today, I would have to leave the wound open. He would like to wait if possible in order to proceed in the future with a single excision and closure. Patient was informed of the risks and complications of the procedure including alternatives to surgery. These were discussed with the patient personally. Patient voices understanding and wishes to proceed with the current plan of continued antibiotics and warm compresses with the hope of improvement so we can proceed with a single surgical excision and closure. He understands that he may need two operations which includes some wound care if the infection were to worsen. At the time of excision, tissue will be sent to Pathology for analysis to rule out carcinoma and to Microbiology for culture. A positive culture will necessitate antibiotic therapy. Encouraged patient to stop smoking as it may have deleterious effects on wound healing. Assessment AND Plan Problems 1. Localized swelling, mass, and lump of head R22.0 2. Cellulitis of face L03.211 3. Family history of skin cancer Z80.8 4. Smoker F17.200 Coding Level of Care Code Off vis,new,level 3 Diagnoses Localized swelling, mass, and lump of head R22.0 Cellulitis of face L03.211 Family history of skin cancer Z80.8 Smoker F17.200 07/02/18 0058 <Electronically signed by Rik Win MD> Date Rik Win MD 07/02/18 1410<Electronically signed by Isabel PRATHERC> Cosigner Signature: Date (if applicable) Isabel StaufferC CC: Lee Mathews MD PLASTIC SURGERY Observed: 07/02/2018 Status: F Source: [place] VISIT REPORT 10:04 AM [facility] REPOSITORY [facility] [address] [address] OFFICE VISIT Date of Service: 06/28/18 MR#: [id number] Acct: [id number] Name: KELVIN HERNANDEZ Jr. Rep #: [id number] : 1955 Provider: Rik Win MD Age/Sex: 63/M Location: [facility] Status: Signed Intake Vital Signs06/28/18 Height 5 ft 9 in 06/28/18 Weight: 233 lb Intake Visit Reasons: evaluation infected soft tissue mass right lower lip at melolabial fold by the commissure Supervisor Of Communications Required: No Accompanied by: None Is patient in pain?: No Allergies sertraline [From Zoloft] Allergy (Verified 06/29/18 11:20) Other Medications escitalopram 10 mg tablet 10 mg PO QDAY 06/22/18 [History Confirmed 07/02/18] lisinopril 20 mg tablet 20 mg PO QDAY 06/22/18 [History Confirmed 07/02/18] lorazepam 2 mg tablet 10 mg PO ONCE PRN tab 06/22/18 [History Confirmed 07/02/18] Fluticasone 0.05% [Flonase Nasal [place]] 2 spray NASAL PRN PRN 06/29/18 [History Confirmed 07/02/18] Clindamycin HCl [Cleocin] 300 mg PO TID #21 cap 07/02/18 [Rx] Diazepam [Valium] 5 mg PO BID PRN PRN #10 tab 07/02/18 [Rx] Lactobacillus Acidophilus/Fos [Acidophilus Probiotic Tablet] 1 ea PO BID #15 tab 07/02/18 [Rx] Oxycodone HCl/Acetaminophen [Percocet 5/325] 1 - 2 tab PO 4X/DAY PRN PRN 3 Days #20 tab 07/02/18 [Rx] PFSH Medical History Anxiety and depression (Acute) Cancer (Acute) High blood pressure (Chronic) Surgical History History of appendectomy (Acute) Family History Father History of blood clots Lupus Bowel disease Colon cancer Skin cancer CVA (cerebral vascular accident) Mother Hypertension Social History Smoking Status: Current some day smoker additional social history: DOES USE ASPIRIN HPI evaluation infected soft tissue mass right lower lip at melolabial fold by the commissure: Details: HISTORY OF PRESENT ILLNESS Patient is a 63 year old male who presents today for re-evaluation of an infected soft tissue mass on his right lower lip at melolabial fold by the commissure. He has finished the Bactrim. He is still on Keflex. He states his redness and swelling and pain have improved. With the warm compresses, he has noticed more drainage and improvement in his symptomatology. He denies any fever. He denies any bleeding. He denies any trauma. He has returned from [place], and states he had no problems. REVIEW OF SYSTEMS General - Denies fear, fatigue, and weight loss. Eyes - Denies cataracts and glaucoma. ENT - Denies nasal congestion and sore throat. Endocrine - Denies excessive thirst and urination. Skin - Denies skin cancer. There is an infected soft tissue mass on his right lower lip at melolabial fold by the commissure. Musculoskeletal - Denies joint pain, joint stiffness, weakness of muscles and joints, back pain, and arthritis. Neuro - Denies headaches. Cardiovascular - Denies chest pain, fatigue, and shortness of breath with exertion. Psych - Denies anxiety and depression. Has claustrophobia. Respiratory - Denies chronic cough and shortness of breath. Gastrointestinal - Denies nausea, vomiting, diarrhea, and constipation. Hematologic - Denies abnormal bruising and bleeding. Genitourinary - Denies hematuria. Has urinary frequency. Has incontinence. PHYSICAL EXAM General - Alert and oriented. HEENT - PERRL. EOMI. Throat is clear. On the right lower lip at melolabial fold by the commissure is an infected soft tissue mass. Measures smaller at 1.7 cm. Minimal redness seen. Swelling resolving. Induration has resolved. No fluctuance. No purulent drainage. Mass is mobile. There is also a small scabby area on the skin overlying the mass. His smile is symmetrical. Neck - Supple and non-tender. No cervical adenopathy. Lungs- Clear to auscultation. Heart - Regular rate and rhythm. Abdomen - Soft and non distended. Extremities - FROM. No axillary adenopathy. Radial pulses are palpable. Neuro - CN II-XII grossly intact. Psych - Normal and mood and affect. ASSESSMENT 1. 1.7 cm infected soft tissue mass right lower lip at melolabial fold by the commissure, improving. 2. Family history of skin cancer. 3. Smoker. PLAN He has finished the Bactrim and is finishing the Keflex. Continue warm compresses several times a day to the area to promote drainage. The redness and inflammation have decreased a lot. He is ready to proceed with surgery. He doesn't want to wait until he gets another infection. Discussed with him that ideally I want to wait until the swelling and inflammation and infection subside and then proceed with excision of the soft tissue mass with one operation since I should be able to close the incision. If the infection were to worsen, then he would need an initial incision and drainage of the infection with the wound left open and packed daily with a Silver dressing. Once the infection is under control and the inflammation subsides, can then proceed with delayed secondary wound closure with a possible skin flap. If the infection were to worsen on po antibiotics, I would admit him to the hospital for IV antibiotics before proceeding with surgery. He would like to wait if possible in order to proceed in the future with a single excision and closure. Patient was informed of the risks and complications of the procedure including alternatives to surgery. These were discussed with the patient personally. Patient voices understanding and wishes to proceed. He understands that he may need two operations which includes some wound care if the infection were to worsen. At the time of excision, tissue will be sent to Pathology for analysis to rule out carcinoma and to Microbiology for culture. A positive culture will necessitate antibiotic therapy. Surgery will be done under local anesthesia and IV sedation on an outpatient basis. Some of the risks and complications were included in a form from the [place] [employer]. If some of the overlying skin is adherent to the soft tissue mass because of scarring from the infection, then extra skin will be excised to minimize recurrence which would necessitate a local skin flap for reconstruction. Encouraged patient to stop smoking as it may have deleterious effects on wound healing. Assessment AND Plan Problems 1. Localized swelling, mass, and lump of head R22.0 2. Cellulitis of face L03.211 3. Family history of skin cancer Z80.8 4. Smoker F17.200 Coding Level of Care Code Off vis,est,level 3 Diagnoses Localized swelling, mass, and lump of head R22.0 Cellulitis of face L03.211 Family history of skin cancer Z80.8 Smoker F17.200 07/02/18 0114 <Electronically signed by Rik Win MD> Date Rik Win MD 07/02/18 1004<Electronically signed by Isbael PRATHERC> Cosigner Signature: Date (if applicable) Isabel Stauffer CC: Lee Mathews MD DISCHARGE INSTRUCTION Observed: 07/02/2018 Status: F Source: [place] 9:42 AM [facility] Medical Records Department [address] [place] [address] Instructions for Home/Discharge Instructions 07/02/18 0938 MR#: [id number] Acct: [id number] Name: KELVIN HERNANDEZ Rep #: [id number] : 1955 63 From: Rik Win MD PCP: Lee Mathews MD Status: REG [place] You will use the following diet at home:: No restrictions Discharge Activity: May not drive while taking narcotic pain medications., May Shower - in 2 days., - - no heavy lifting. keep head elevated. May shower in (days): 2 May resume sexual activity in: No Restrictions Ice area for (Minutes): 5 - as needed for facial swelling. Weight Bearing Status: Weight bearing as tolerated Lifting Restrictions: 20 lbs. Keep extremity elevated above heart level: - - head elevated. Call your doctor if your incision/area has: Continuous Slow Oozing, Sudden Increased Bleeding, Increased Pain/ Swelling, Increased Redness, Foul Smelling Discharge, Swelling at the incision site Call your doctor if you observe: Fever of 101 or Higher, Coldness, Increased Pain, Shortness of breath, Chest pain, Calf discomfort, Uncontrolled pain Suture Line Care: - - antibiotic ointment to suture line daily. Cleanse incision/area with: - - may get incision wet in the shower in two days. Allergies/Adverse Reactions: Allergies sertraline [From Zoloft] Allergy (Verified 06/29/18 11:20) Other CP AND SOB Medications to take at Discharge escitalopram 10 mg tablet 10 mg PO QDAY 06/22/18 lisinopril 20 mg tablet 20 mg PO QDAY 06/22/18 lorazepam 2 mg tablet 10 mg PO ONCE PRN tab 06/22/18 Fluticasone 0.05% [Flonase Nasal [place]] 2 spray NASAL PRN PRN 06/29/18 Clindamycin HCl [Cleocin] 300 mg PO TID #21 cap 07/02/18 Diazepam [Valium] 5 mg PO BID PRN PRN #10 tab 07/02/18 Lactobacillus Acidophilus/Fos [Acidophilus Probiotic Tablet] 1 ea PO BID #15 tab 07/02/18 Oxycodone HCl/Acetaminophen [Percocet 5/325] 1 - 2 tab PO 4X/DAY PRN PRN 3 Days #20 tab 07/02/18 The following prescriptions were given: Diazepam [Valium] 5 mg PO BID PRN PRN #10 tab PRN Reason: Spasms Oxycodone HCl/Acetaminophen [Percocet 5/325] 1 - 2 tab PO 4X/DAY PRN PRN 3 Days #20 tab PRN Reason: Pain Lactobacillus Acidophilus/Fos [Acidophilus Probiotic Tablet] 1 ea PO BID #15 tab Clindamycin HCl [Cleocin] 300 mg PO TID #21 cap Primary Care Physician: Uzair Mathews MD [Primary Care Provider] - Test Results: Test results from this visit will be discussed in further detail at your follow-up appointment, if applicable. Please Follow Up With: Rik Win MD When: one week. call [phone] for appt. Proposed Discharge Date: 07/02/18 07/02/18941 <Electronically signed by Rik Win MD> Date Rik Win MD CC: Lee Mathews MD MRSA WOUND DNA BY Collected: 07/02/2018 Status: F Source: [place] [place] PCR 9:20 AM [facility] REPOSITORY Order Comment: Has pt arrived? Y Comments: CYSTIC LESION RIGHT MELOLABIAL FOLD BY COMMISSURE Specimen Source? RIGHT MELOLABIAL FOLD BY COMMISSURE TYPE CODE TESTS RESULT OUT OF RANGE REFERENCE UNITS LAB L8200.1100 Negative Normal MRSA Negative RESULT LAB L8200.1150 Negative Normal SA RESULT NEGATIVE Performed By: #### L8200.1075 #### [facility] [address] [place], [address] Observed: 07/02/2018 Status: F Source: [place] CULTURE, DEEP WOUND 9:20 AM [facility] REPOSITORY Order Date: 06/21/17 Has pt arrived? Y Comments: CYSTIC LESION RIGHT MELOLABIAL FOLD BY COMMISSURE Gram Stain Gram Stain 4+ Red Blood Cells 1+ White Blood Cells No organisms seen Wound Culture Clinical correlation necessary, Possible skin contamination. ORGANISM 1: Staphylococcus epidermidis Amount Growth Very Rare Staphylococcus epidermidis: REACTION Benzylpenicillin NF >=0.5 R Cefoxitin *NF - Clindamycin $$ <=0.25 S Inducable Clindamycin [place] - Erythromycin $ <=0.25 S Gentamicin $ <=0.5 S Levofloxacin $ <=0.12 S Linezolid $$$$ 1 S Oxacillin NF <=0.25 S Tigecycline $$$$ <=0.12 S Rifampin $$ <=0.5 S Tetracycline NF <=1 S Vancomycin $ 1 S (NF) indicates non-formulary drug at [facility]. Approval by Infectious Disease Specialist required before non-formulary drugs may be ordered and/or dispensed. * CLSI guidelines does not recommend testing of cephalosporins. This interpretation is deduced from Beta-lactam/penicillin results. Cult, Anaerobic No anaerobic bacteria isolated. Performed By: #### M100.1500 #### [facility] [address] [place], [address] Observed: 07/02/2018 Status: F Source: [place] W/ 9:20 AM [facility] [id number] REPOSITORY Comments: CYSTIC LESION RIGHT MELOLABIAL FOLD BY COMMISSURE Has pt arrived? Y Is this test to exclude patient from TB Isolation? N Cu,[id number] TESTING PERFORMED AT [facility]. ORIGINAL REPORT ON FILE IN LAB CONTAINS ADDITIONAL TEST SITE INFORMATION. CUF No yeast or mold isolated after [address]136 TESTING PERFORMED AT [facility]. ORIGINAL REPORT ON FILE IN LAB CONTAINS ADDITIONAL TEST SITE INFORMATION. Fungus Stain No yeast or mold observed. Performed By: #### M600.1900 #### [place] [facility] [address] [place], [address] LESION (CHOOSE SITE) Observed: 07/02/2018 Status: F Source: [place] 8:00 AM [facility] REPOSITORY Patient: KELVIN HERNANDEZ Jr. : 1955 (63/M) Acct Num: [id number] Phys: Rik Win MD Unit Num: [id number] Loc: [place] Specimen: [id number] Received: 07/02/188 Spec Type: Lesion TISSUES TISSUES: Mouth, NOS GROSS DESCRIPTION Received in fixative is one container labeled with the patient's name and designated infected cystic lesion right melolabial fold by commissure. The specimen consists of a piece of goldsmith-white skin with underlying tissue. The skin piece measures 1.5 x 0.3 cm and underlying tissue measures 1.5 x 1.5 x 0.7 cm. This piece is bisected. Also present in the container are three variable size pieces of goldsmith mucosal tissue measuring in aggregate 2.5 x 0.3 x 0.3 cm. The entire specimen is submitted in one cassette. / ALEXANDRO:fern 07/02/18 TC:2 CPT: 81941, 01119 x2 HEADER OPERATION: Excision cystic lesion, melolabial fold PRE-OP DIAGNOSIS: Infected cystic lesion right melolabial fold by commissure TISSUE SUBMITTED: Infected cystic lesion right melolabial fold by commissure MICROSCOPIC DESCRIPTION Slides are reviewed. MICROSCOPIC DIAGNOSIS Infected cystic lesion right melolabial fold by commissure, excision: Pieces of skin and skeletal muscle tissue with acute and chronic inflammation, foreign body giant cell reaction and abscess formation. Special stains for acid fast bacilli and fungi are negative for organisms; matched controls are appropriate. SJ:fern 07/03/18 Signed Mo Burt 07/03/18 <signature on file> Performed By: #### PLES #### [facility] [address] [place], [address] DISCHARGE INSTRUCTION Observed: 06/18/2018 Status: F Source: [place] 1:08 PM [facility] REPOSITORY [facility] Medical Records Department [address] [place] [address] Discharge Instruction 06/18/18 1306 MR#: [id number] Acct: [id number] Name: KELVIN HERNANDEZ Rep #: [id number] : 1955 63 From: Subha New DO PCP: Lee Mathews MD Status: PRE ER ED Disposition - Plan for ED Patient: Chief Complaint: Abscess Instructions: ED Cellulitis Facial Prescriptions: Cephalexin [Keflex] 500 mg PO Q6 #40 cap Smz/Tmp Ds [Bactrim Ds] 2 tab PO BID #28 tab Referrals: Uzair Mathews MD [Primary Care Provider] - 3-5 Days What to do if you have Problems For any increased pain, shortness of breath, bleeding, nausea or vomiting, chest pain, or any unexpected problems, contact your Primary Care Provider. Call [facility] ([phone]) or report to the closest Emergency Room. Call 911 if necessary. 06/18/18 1308 <Electronically signed by Subha New DO> Date Subha New DO Cosigner Signature (If Indicated): Date CC: Lee Mathews MD EMERGENCY DEPARTMENT Observed: 06/18/2018 Status: F Source: [place] SUMMARY 1:06 PM [facility] REPOSITORY [facility] Medical Records Department [address] [place] [address] Emergency Department Summary 06/18/18 1304 MR#: [id number] Acct: [id number] Name: KELVIN HERNANDEZ Rep #: [id number] : 1955 63 From: Subha New DO PCP: Lee Mathews MD Status: PRE ER - ER Visit Summary Date of Service: 06/18/18 Chief Complaint: [Redness and swelling to right side of face History of Present Illness: The patient is a 63 M [presents the emergency department with complaint of redness and swelling to the right side of his face 3 days. Patient states that he initially thought he was getting a small pimple to the right cheek. Over last 24 hours he has had some increased redness and swelling. Patient was seen at primary care physician's office and sent to the ER for possible I AND D of suspected abscess. Patient's had no fever or chills.] Physical Examination: [HEENT-PERRLA, EOMI. Cranial nerves II through XII grossly intact. TMs clear. Mucous membranes moist. No adenopathy. Right cheek- just lateral to the angle of the mouth there is a soft tissue swelling with erythema and mild cellulitis. There is no fluctuance noted. There is induration and some mild tenderness to palpation. Cardiovascular-regular rate and rhythm without murmur or ectopy Lungs-clear to auscultation, chest wall stable without crepitus or subcu emphysema Abdomen-normoactive bowel sounds, soft, nontender, no rebound or rigidity, no peritoneal signs. Extremities-intact 4, normal range of motion, normal pulses, atraumatic] Test Results: [None indicated] Emergency Department Course and Treatment: [At this point I had a long discussion with patient and his and it is my opinion that this is not amenable to any type of I AND D at this point as I feel this is all cellulitic and indurated and do not feel a discrete pocket of fluid to drain. Both the patient and the agree to proceed with antibiotics at this time and close observation. They understand this may progress to the point where he would require an I AND D and they will return if that should happen.] Treatment Plan: [Patient will be started on Keflex and Bactrim] Disposition: [Discharged home in stable condition. Patient advised to follow-up with primary care physician within next 3-5 days. They are advised to return if worsening pain, increased redness, fever, or condition should worsen in any way.] Impression: [Facial cellulitis right cheek] This note was generated with [employer]en[employer] dictation software. It may contain incorrect words, spelling, and punctuation that were not noted in review of the chart prior to signing ED Disposition - Plan for ED Patient: Chief Complaint: Abscess Referrals: Uzair Mathews MD [Primary Care Provider] - What to do if you have Problems For any increased pain, shortness of breath, bleeding, nausea or vomiting, chest pain, or any unexpected problems, contact your Primary Care Provider. Call [facility] [employer] [facility] ([phone]) or report to the closest Emergency Room. Call 911 if necessary. 06/18/18 1306 <Electronically signed by Subha New DO> Date Subha New DO Cosigner Signature (If Indicated): Date CC: Lee Mathews MD ALLERGIES ALLERGIES DATE TYPE / CODE NAME / CODE REACTION SEVERITY SOURCE 07/26/2018 Drug sertraline/F Other Unknown [facility] Allergy/4160 [id number]([facility] [address](SNOMED NORM) Repository CT) ENCOUNTERS ENCOUNTERS ADMIT/DISCHARGE ACCOUNT ADMITTING ENCOUNTER LOCATION SOURCE NUMBER CLASS 12/05/2018 [id number] Ambulatory [place] 4 [facility] ing:[place] Repository 07/26/2018/ [id number] Ambulatory [facility] [facility] [place] 07/10/2018/ [id number] Ambulatory [facility] [facility] [place] 07/02/2018/ [id number] Ambulatory [place] 8 4 [facility] ing:[place] Repository 07/02/2018 [id number] Ambulatory BMSBuilding:W [place] [facility] Repository 06/28/2018/ [id number] Ambulatory [facility] [facility] [place] 06/22/2018/ [id number] Ambulatory [facility]:[place] [facility] [place] 06/18/2018/ [id number] Emergency [place] 8 7 [facility] ing:ED Repository PAYERS PAYERS ENCOUNTER GUARANTOR PAYER SUBSCRIBER SOURCE 12/05/2018 KELVIN HERNANDEZ Primary KELVIN Dangelo Jr.3845 Insurance:MEDICARE Savita: [facility] PART A BPolicy Number: [id number] Repository 314[address]Hxk: (330) Date:2018-11-27 [phone] () 12/05/2018 Secondary KELVIN E MARY [place] Insurance:HUMANA Jr.: [facility] [id number] Hospital Number: Repository [id number] Date:[id number] [address] [address]OU: 12/05/2018 Tertiary NOT GIVENUNK [place] Insurance:SELF PAY [facility] Number: Effective Repository Date:2018-11-27 07/26/2018 KELVIN E MARY Primary KELVIN E MARY Goodman Jr.3845 Insurance:MEDICARE Jr.: [facility] BPolicy Number: [id number] [id number] Repository 36578Rbk: 330) Date:2018-07-10 [phone] () 07/26/2018 Secondary KELVIN E MARY Antolin Insurance:HUMANA Jr.: [facility] [id number] Hospital Number: Repository [id number] Date:[id number] [address]RD: 07/26/2018 Tertiary NOT GIVENUNK Antolin Insurance:SELF PAY [facility] Number: Effective Repository Date:2018-07-24 07/10/2018 KELVIN E MARY Primary KELVIN E MARY Goodman Jr.3845 Insurance:MEDICARE Jr.: [facility] BPolicy Number: [id number] [place], [place] [id number] Repository 90843Xar: ([phone]) Date:2018-07-02 [phone] () 07/10/2018 Secondary KELVIN E MARY Goodman Insurance:HUMANA Jr.: [facility] [id number] Hospital Number: Repository [id number] Date:5826-07-41BX [place] [address]WP: 07/10/2018 Tertiary NOT GIVENUNK Antolin Insurance:SELF PAY [facility] Number: Effective Repository Date:2018-07-02 07/02/2018 KELVIN E MARY Primary KELVIN E MARY Goodman Jr.3845 Insurance:MEDICARE Jr.: [facility] PART A BPolicy Number: [id number] [place] [id number] Repository 264[address]Ymu: ([phone]) Date:2018-06-29 [phone] () 07/02/2018 Secondary KELVIN E MARY Goodman Insurance:HUMANA Jr.: [facility] [id number] Hospital Number: Repository [id number] Date:[id number] [address]CK: 07/02/2018 Tertiary NOT GIVENUNK Antolin Insurance:SELF PAY [facility] Number: Effective Repository Date:2018-06-29 07/02/2018 KELVIN E AMRY Primary KELVIN E MARY Goodman Jr.3845 Insurance:MEDICARE Jr.: [facility] BPolicy Number: [id number] [place], [place] [id number] Repository [address]Yxo: ([phone]) Date:2018-06-29 [phone] () 07/02/2018 Secondary KELVIN E MARY Goodman Insurance:HUMANA Jr.: [facility] [id number] Hospital Number: Repository [id number] Date:[id number] [address]PF: 07/02/2018 Tertiary NOT GIVENUNK Goodman Insurance:SELF PAY [facility] Number: Effective Repository Date:2018-07-02 06/28/2018 KELVIN E MARY Primary KELVIN E MARY Antolin Jr.3845 Insurance:MEDICARE Jr.: [facility] A BPolicy Number: [id number] [id number] Repository [address]Wfv: ([phone]) Date:2018-06-22 [phone] () 06/28/2018 Secondary KELVIN E MARY Antolin Insurance:HUMANA Jr.: [facility] [id number] Hospital Number: Repository [id number] Date:[id number] [address] [place] [address]II: 06/28/2018 Tertiary NOT GIVENUNK Antolin Insurance:SELF PAY [facility] Number: Effective Repository Date:2018-06-28 06/22/2018 KELVIN E MARY Primary KELVIN E MARY Goodman Jr.3845 Insurance:MEDICARE Jr.: [facility] PART A BPolicy Number: [id number] [id number] Repository [address]Oyy: [phone]) Date:2018-06-20 [phone] () 06/22/2018 Secondary KELVIN E MARY Goodman Insurance:HUMANA Jr.: [facility] [id number] Hospital Number: Repository [id number] Date:[id number] [address] [place] [address]LK: 06/22/2018 Tertiary NOT GIVENUNK Goodman Insurance:SELF PAY [facility] Number: Effective Repository Date:2018-06-22 06/18/2018 KELVIN E MARY Primary KELVIN E MARY Antolin Jr.3845 Insurance:MEDICARE Jr.: [facility] PART A BPolicy Number: [id number] [id number] Repository [address]Pjk: ([phone]) Date:2018-06-18 [phone] () 06/18/2018 Secondary KELVIN E MARY Goodman Insurance:HUMANA Jr.: [facility] [id number] Hospital Number: Repository [id number] Date:[id number] [address] [place] [address]DY: 06/18/2018 Tertiary NOT GIVENUNK Antolin Insurance:SELF PAY [facility] Effective Repository Date:2018-06-18
== END ==
PROVIDERS: Family Provider Family Medicine; PCP Family Medicine; Referring Provider Family Medicine; Visit Provider Family Medicine
DX: I10 Essential (primary) hypertension (principal); Z12.5 Encounter for screening for malignant neoplasm of prostate; Z87.891 Personal history of nicotine dependence; Z12.2 Encounter for screening for malignant neoplasm of respiratory organs; Z72.0 Tobacco use; Z13.6 Encounter for screening for cardiovascular disorders
CPT/HCPCS: 36415; 76705; 76775; 80048; 80061; 84153; G0297; G0103

== ENCOUNTER 2021-11-13 14:20 | Emergency (ER) | payer MEDICARE, SELFPAY ==
[2021-11-13 14:20] VITALS: BP 206/107; PULSE 68; RESP 17; TEMP 36.7; O2SAT 96; BMI 31.7
[2021-11-13 15:00] VITALS: PULSE 76; RESP 17; O2SAT 97
--- NOTE | 2021-11-13 15:42 | EX.ED.DYSGE1 ---
HPI History of Present Illness Chief Complaint: Nosebleed Narrative Narrative: Patient presents with right epistaxis that started about an hour prior to arrival. He had similar episode yesterday however he was able to control it. He is not on blood thinners in fact about 4 years ago he took himself off all his medications because they did not make him feel. He knows he has hypertension and knows the consequences but does not want to take any medications. No recent upper airway congestion PFSH PFSH Medical History (Updated 11/13/21 @ 15:[address] Marco Mena MD) Anxiety and depression Cancer High blood pressure Home Medications lisinopril 20 mg tablet 20 mg PO QDAY 06/22/18 [History Last Taken 07/02/18 05:30] lorazepam 2 mg tablet 10 mg PO ONCE PRN tab 06/22/18 [History Last Taken Unknown] fluticasone propionate 2 spray NASAL PRN PRN 06/29/18 [History Last Taken Unknown] Lactobac acidoph-fructooligos 1 ea PO BID #15 tab 07/02/18 [Rx Last Taken Unknown] diazepam 5 mg PO BID PRN PRN #10 tab 07/02/18 [Rx Last Taken Unknown] oxycodone-acetaminophen 1 - 2 tab PO 4X/DAY PRN PRN 3 Days #20 tab 07/02/18 [Rx Last Taken Unknown] clindamycin HCl 150 mg PO TID #14 cap 11/13/21 [Rx Last Taken Unknown] hydrocodone-acetaminophen 1 tab PO QHS PRN 3 Days #10 tab 11/13/21 [Rx Last Taken Unknown] Allergy/AdvReac Type Severity Reaction Status Date / Time sertraline [From Zoloft] Allergy Other Verified 11/13/21 14:22 Family History (Updated 06/22/18 @ 08:58 by Chantel Swartz) Father History of blood clots Lupus Bowel disease Colon cancer Skin cancer CVA (cerebral vascular accident) Mother Hypertension Surgical History (Updated 07/08/18 @ 19:[address] Rik Win MD) History of appendectomy Social History (Updated 08/01/18 @ 11:14 by Isabel Stauffer BOOMBOAT OPERATOR, BOOMBOAT OPERATOR-C) Smoking Status: Current some day smoker additional social history: DOES USE ASPIRIN ROS ROS ED ROS Narrative Past medical history: Reviewed, noncompliant with medications Medications: Reviewed Social history: Noncontributory Review of systems: All systems negative except as indicated General: No fever Eyes: No visual changes ENT: Epistaxis as in HPI Neck: No neck pain Cardiovascular: No chest pain Respiratory: No shortness of breath or cough Hematologic: No easy bleeding or easy bruising EXAM Physical Exam Narrative Exam Narrative: Physical exam General: Patient appears uncomfortable Head: Normocephalic, Atraumatic Eyes: Conjunctiva not pale ENT: Right epistaxis, I believe it is anterior but it is quite brisk and it is difficult to tell. Neck: Supple, Nontender, No lymphadenopathy Cardiovascular: Regular rate, Regular rhythm Respiratory: No distress, CTA bilaterally Skin: Normal color, No rash Neurological: Alert, Normal Strength, Normal Sensation Psychological: Normal affect Const Vital Signs: 11/13/21 14:20 Temperature 98.1 F Temperature Source Temporal Pulse Rate 68 Respiratory Rate 17 Blood Pressure 206/107 H Blood Pressure Mean 140 Pulse Ox 96 Oxygen Delivery Method Room Air MDM MDM MDM Narrative Medical decision making narrative: Patient was packed. See below bleeding stopped I observed him. He will be discharged in stable condition he does not wish me to give him any blood pressure medications today. He tells me reluctantly that he will follow-up with his PCP for this. I will refer him to ENT for packing removal. Antibiotics and analgesia will be given. Procedure note: Verbal consent Epistaxis A 7.5 cm Rhino Rocket was inserted, this was lubricated prior to this. I inflated with about 8 mL of air. Epistaxis controlled Patient tolerated procedure well Discharge Plan Triage Chief Complaint: Nosebleed ED Provider: Marco Mena Dx/Rx/DC Orders Clinical Impression: Epistaxis Instructions: ED Epistaxis (Adult) Prescriptions: New hydrocodone-acetaminophen 5-325 mg tablet 1 tab PO QHS PRN (Reason: pain) 3 Days Qty: 10 RF: 0 clindamycin HCl 150 mg capsule 150 mg PO TID Qty: 14 RF: 0 No Action lisinopril 20 mg tablet 20 mg PO QDAY RF: 0 lorazepam 2 mg tablet 10 mg PO ONCE PRN (Reason: Anxiety) RF: 0 fluticasone propionate 1 SPRAY spray,suspension 2 spray NASAL PRN PRN (Reason: Allergies) RF: 0 oxycodone-acetaminophen 1 TABLET tablet 1 - 2 tab PO 4X/DAY PRN PRN (Reason: Pain) 3 Days Qty: 20 RF: 0 diazepam 5 MG tablet 5 mg PO BID PRN PRN (Reason: Spasms) Qty: 10 RF: 0 Lactobac acidoph-fructooligos 1 EACH tablet 1 ea PO BID Qty: 15 RF: 0 Primary Care Provider: Uzair Mathews Referrals: Uzair Mathews MD [Primary Care Provider] - Marcio Zavala MD [STAFF PHYSICIAN] - 3-5 Days Disposition Disposition: Home, Self Care
[2021-11-13] MEDS: oxyCODONE 5 MG Tablet PO (16:23)
[2021-11-13] MEDS: Clindamycin HCl 150 MG Capsule PO (16:24)
== END 2021-11-13 16:29 | disposition home or self-care (01) ==
PROVIDERS: Emergency Provider Emergency Medicine; PCP Family Medicine
DX: R04.0 Epistaxis (principal); I10 Essential (primary) hypertension; F41.9 Anxiety disorder, unspecified; F32.A Depression, unspecified; Z79.899 Other long term (current) drug therapy; F17.210 Nicotine dependence, cigarettes, uncomplicated
CPT/HCPCS: 30901; 99283

== ENCOUNTER 2021-12-06 09:49 | Outpatient (CLI) | payer MEDICARE, SELFPAY ==
[2021-12-06 10:14] LABS: Hemoglobin 16.3 g/dL (13.0-16.5); Mean Corp Hgb Conc 33.3 g/dL (32-36); Mean Corpuscular Hgb 31.4 pg (27.0-32.0); Mean Corpuscular Volume 94.4 fL (80-94); Platelet Count 175 K/mm3 (150-450); RBC Distribution Width CV 12.3 % (11.6-14.6); RBC Distribution Width SD 43.1 fl (35.1-43.9); Red Blood Count 5.19 M/mm3 (4.6-6.2); White Blood Count 7.5 K/mm3 (4.4-11.0)
[2021-12-06 10:50] LABS: Anion Gap 5 (5-15); BUN 14 mg/dL (7-18); BUN/Creat Ratio 15.1 RATIO (10-20); Calcium,Total 8.9 mg/dL (8.5-10.1); Chloride 99 mmol/L (98-107); Cholesterol 152 mg/dL (200); Creatinine, Serum 0.93 mg/dL (0.70-1.30); EST Glomerular Filtration Rate 86 mL/min (>60); Est Glom Filt Rate - Afr Amer 104 mL/min (>60); Glucose 99 mg/dL (74-106); High Density Lipoprotein 53 mg/dL; Potassium 3.9 mmol/L (3.5-5.1); Sodium Level 138 mmol/L (136-145); Triglycerides 86 mg/dL; Very Low Density Lipoprotein 17 mg/dL (5-40)
== END 2021-12-06 23:59 | disposition short-term general hospital (02) ==
LOC: MFPLAB 09:52
PROVIDERS: PCP Family Medicine; Referring Provider Family Medicine; Visit Provider Family Medicine
DX: I10 Essential (primary) hypertension (principal)
CPT/HCPCS: 36415; 80048; 80061; 84443; 85027

== ENCOUNTER → 2024-02-05 | Outpatient (CLI) | payer MEDICARE, SELFPAY ==
[2024-02-05 12:50] LABS: Anion Gap 4 (5-15); BUN 8 mg/dL (7-18); BUN/Creat Ratio 9.7 RATIO (10-20); Calcium,Total 8.7 mg/dL (8.5-10.1); Chloride 97 mmol/L (98-107); Cholesterol 169 mg/dL (200); Creatinine, Serum 0.82 mg/dL (0.70-1.30); EST Glomerular Filtration Rate 98 mL/min (>60); Est Glom Filt Rate - Afr Amer 119 mL/min (>60); Glucose 105 mg/dL (74-106); High Density Lipoprotein 48 mg/dL; PSA,Total - Annual Screen 0.72 ng/mL (0.00-4.00); Potassium 3.8 mmol/L (3.5-5.1); Sodium Level 133 mmol/L (136-145); Triglycerides 103 mg/dL; Very Low Density Lipoprotein 21 mg/dL (5-40)
== END | disposition home or self-care (01) ==
LOC: MFPLAB 11:00
PROVIDERS: PCP Family Medicine; Visit Provider Family Medicine
DX: I10 Essential (primary) hypertension (principal); Z12.5 Encounter for screening for malignant neoplasm of prostate
CPT/HCPCS: 36415; 80048; 80061; 84153; G0103

== ENCOUNTER → 2024-03-27 | Outpatient (CLI) | payer MEDICARE, SELFPAY ==
[2024-03-29 12:09] LABS: QNTFERON TB Mitogen Value > 10.00 IU/mL (.); QNTFERON TB Nil Value 0.05 IU/mL (.); QNTFERON TB1+ Ag Value 0.06 IU/mL (.); QNTFERON TB2+ Ag Value 0.08 IU/mL (.); QNTIFERON TB Positive Criteria Negative (Negative)
== END | disposition home or self-care (01) ==
LOC: MFPLAB 11:14
PROVIDERS: PCP Family Medicine; Visit Provider Dermatology
DX: L82.1 Other seborrheic keratosis (principal); L57.8 Other skin changes due to chronic exposure to nonionizing radiation; D22.5 Melanocytic nevi of trunk; L81.4 Other melanin hyperpigmentation; Z71.89 Other specified counseling; L20.89 Other atopic dermatitis; B35.6 Tinea cruris; L57.0 Actinic keratosis; L40.0 Psoriasis vulgaris; D48.5 Neoplasm of uncertain behavior of skin
CPT/HCPCS: 36415; 86480

== ENCOUNTER → 2024-05-01 | Outpatient (CLI) | payer MEDICARE, SELFPAY ==
--- NOTE | 2024-05-01 11:11 | RAD_ITS ---
INDICATION: Encounter for screening for diseases of the blood EXAMINATION/TECHNIQUE: X-RAY - XR Chest 2 Views COMPARISON: 12/11/2008 FINDINGS: The lungs are clear. Tortuous and calcified thoracic aorta. The heart is not enlarged. No pleural effusion or pneumothorax. Degenerative changes of the thoracic spine. RAD/Chest PA and Lateral IMPRESSION: No acute radiographic abnormalities. Electronically Signed: Lee Reis MD at 2:58 EDT ,
[2024-05-01 12:34] LABS: Absolute Lymphocyte Count 2.64 X10^3/uL (0.83-4.51); Absolute Neutrophil Count 3.4 X10^3/uL (2.0-7.7); Basophil# 0.02 X10^3/uL; Basophil% 0.3 % (0-1); Eosinophils% 1.5 % (0-5); Hematocrit 48.9 % (40-54); Hemoglobin 16.1 g/dL (13.0-16.5); Lymphocyte # 2.64 X10^3/ul (0.83-4.51); Mean Corp Hgb Conc 32.9 g/dL (32-36); Mean Corpuscular Hgb 31.1 pg (27.0-32.0); Mean Corpuscular Volume 94.4 fL (80-94); Mean Platelet Vol. 9.1 fl (6.2-12.0); Monocyte# 0.63 X10^3/uL; Monocyte% 9.3 % (0-10); NRBC Flagged by Analyzer 0 % (0-5); Neutrophil # 3.36 X10^3/uL (2.7-7.7); Neutrophil % 49.6 % (47-70); Platelet Count 173 K/mm3 (150-450); RBC Distribution Width SD 45.4 fl (35.1-43.9); Red Blood Count 5.18 M/mm3 (4.6-6.2); White Blood Count 6.8 K/mm3 (4.4-11.0)
[2024-05-01 13:35] LABS: ALB/GLOB Ratio 1.1 RATIO (0.9-2.4); AST(SGOT) 16 U/L (15-37); Alanine Aminotransfer ALT/SGPT 19 U/L (16-61); Albumin, Serum 3.7 g/dL (3.2-5.0); Alkaline Phosphatase 90 U/L (45-117); Anion Gap 4 (5-15); BUN 11 mg/dL (7-18); BUN/Creat Ratio 13.6 RATIO (10-20); Chloride 98 mmol/L (98-107); Creatinine, Serum 0.81 mg/dL (0.70-1.30); EST Glomerular Filtration Rate 100 mL/min (>60); Est Glom Filt Rate - Afr Amer 121 mL/min (>60); Globulin 3.3 g/dL (2.2-4.2); Glucose 94 mg/dL (74-106); Potassium 4.1 mmol/L (3.5-5.1); Sodium Level 134 mmol/L (136-145)
[2024-05-02 14:10] LABS: PROEL- A/G Ratio 1.5 (0.7-1.7); PROEL- Albumin 3.8 g/dL (2.9-4.4); PROEL- Alpha-1 Globulin 0.2 g/dL (0.0-0.4); PROEL- Alpha-2 Globulin 0.6 g/dL (0.4-1.0); PROEL- Beta Globulin 0.9 g/dL (0.7-1.3); PROEL- Gamma Globulin 0.8 g/dL (0.4-1.8); PROEL- Globulin, Total 2.5 g/dL (2.2-3.9); PROEL- TOTAL PROTEIN 6.3 g/dL (6.0-8.5); PROEL-M-Spike Not Observed g/dL (Not Observed)
== END | disposition home or self-care (01) ==
PROVIDERS: PCP Family Medicine; Referring Provider Dermatology; Visit Provider Dermatology
DX: L40.0 Psoriasis vulgaris (principal); L20.89 Other atopic dermatitis; L57.0 Actinic keratosis; D48.5 Neoplasm of uncertain behavior of skin; B35.6 Tinea cruris; Z13.0 Encounter for screening for diseases of the blood and blood-forming organs and certain disorders involving the immune mechanism; Z85.828 Personal history of other malignant neoplasm of skin; Z79.899 Other long term (current) drug therapy
CPT/HCPCS: 36415; 71046; 80053; 84165; 85025

== ENCOUNTER → 2025-03-03 | Outpatient (CLI) | payer MEDICARE, SELFPAY ==
--- NOTE | 2025-03-03 16:28 | RAD_ITS ---
PROCEDURE: CHEST PA AND LATERAL 03/03/2025 REASON FOR EXAM: COPD TECHNIQUE: Frontal and lateral views of the chest. COMPARISON: None FINDINGS: The lungs are expanded. There is no demonstrated parenchymal abnormality. There is no demonstrated pleural abnormality. The heart is upper limits of normal in size. Normal mediastinum and jeremías. Normal visualized pulmonary arteries. The aorta is calcified. Normal visualized thoracic spine. Normal visualized ribs, clavicles, and shoulders. There is no demonstrated abnormality of the visualized soft tissue structures of the upper abdomen. RAD/Chest PA and Lateral IMPRESSION: Normal x-ray examination of the chest. IMPRESSION: Borderline cardiomegaly. No evidence of active or chronic tuberculosis. [facility]
[2025-03-03 17:48] LABS: Absolute Lymphocyte Count 2.04 X10^3/uL (0.83-4.51); Absolute Neutrophil Count 5.3 X10^3/uL (2.0-7.7); Basophil# 0.04 X10^3/uL; Basophil% 0.5 % (0-1); Eosinophil# 0.02 X10^3/uL; Eosinophils% 0.2 % (0-5); Hematocrit 44.6 % (40-54); Hemoglobin 15.1 g/dL (13.0-16.5); Lymphocyte # 2.04 X10^3/ul (0.83-4.51); Lymphocyte % 25.4 % (19-41); Mean Corp Hgb Conc 33.9 g/dL (32-36); Mean Corpuscular Hgb 31.6 pg (27.0-32.0); Mean Corpuscular Volume 93.3 fL (80-94); Monocyte# 0.64 X10^3/uL; NRBC Flagged by Analyzer 0 % (0-5); Neutrophil # 5.26 X10^3/uL (2.7-7.7); Neutrophil % 65.5 % (47-70); Platelet Count 100 K/mm3 (150-450); RBC Distribution Width CV 14.5 % (11.6-14.6); RBC Distribution Width SD 49.9 fl (35.1-43.9); Red Blood Count 4.78 M/mm3 (4.6-6.2)
[2025-03-03 18:47] LABS: Pro- Brain NATRIURETIC PEPTIDE 7533 pg/mL (<=900)
[2025-03-03 18:50] LABS: ALB/GLOB Ratio 1.6 RATIO (0.9-2.4); AST(SGOT) 31 U/L (<=37); Alanine Aminotransfer ALT/SGPT 25 U/L (<=46); Albumin, Serum 3.8 g/dL (3.4-4.8); Alkaline Phosphatase 73 U/L (40-129); Anion Gap 11 (5-15); BUN 17 mg/dL (4-19); BUN/Creat Ratio 15.7 RATIO (10-20); Calcium,Total 8.8 mg/dL (7.6-11.0); Carbon Dioxide 28.6 mmol/L (21.0-32.0); Chloride 94 mmol/L (98-108); Creatinine, Serum 1.06 mg/dL (0.70-1.20); EST Glomerular Filtration Rate 75 (>60); Globulin 2.4 g/dL (2.2-4.2); Glucose 98 mg/dL (70-99); Protein, Total 6.1 g/dL (5.9-8.4); Sodium Level 134 mmol/L (133-145); Total Bilirubin 0.83 mg/dL (0.00-1.30)
== END | disposition home or self-care (01) ==
PROVIDERS: PCP Family Medicine; Referring Provider Family Medicine; Visit Provider Family Medicine
DX: R60.9 Edema, unspecified (principal); J44.9 Chronic obstructive pulmonary disease, unspecified
CPT/HCPCS: 36415; 71046; 80053; 83880; 84443; 85025

== ENCOUNTER → 2025-03-18 | Outpatient (CLI) | payer MEDICARE, SELFPAY ==
[2025-03-18 18:21] LABS: ALB/GLOB Ratio 1.5 RATIO (0.9-2.4); AST(SGOT) 44 U/L (<=37); Alanine Aminotransfer ALT/SGPT 45 U/L (<=46); Albumin, Serum 3.6 g/dL (3.4-4.8); Alkaline Phosphatase 128 U/L (40-129); Anion Gap 11 (5-15); BUN 21 mg/dL (4-19); BUN/Creat Ratio 17.4 RATIO (10-20); Calcium,Total 8.1 mg/dL (7.6-11.0); Carbon Dioxide 29.1 mmol/L (21.0-32.0); Chloride 98 mmol/L (98-108); Creatinine, Serum 1.21 mg/dL (0.70-1.20); EST Glomerular Filtration Rate 64 (>60); Globulin 2.4 g/dL (2.2-4.2); Glucose 94 mg/dL (70-99); Potassium 3.9 mmol/L (3.3-5.1); Pro- Brain NATRIURETIC PEPTIDE 8957 pg/mL (<=900); Sodium Level 139 mmol/L (133-145); Total Bilirubin 0.85 mg/dL (0.00-1.30)
== END | disposition home or self-care (01) ==
LOC: MFPLAB 14:29
PROVIDERS: PCP Family Medicine; Referring Provider Family Medicine; Visit Provider Family Medicine
DX: I50.9 Heart failure, unspecified (principal)
CPT/HCPCS: 36415; 80053; 83880

== ENCOUNTER 2025-03-20 17:23 | Inpatient (IN) | payer MEDICARE, SELFPAY ==
[2025-03-20] VITALS (12 sets, daily range): BP systolic 95–128; BP diastolic 57–97; PULSE 61–130; RESP 12–23; TEMP 36.6–37.1; O2SAT 94–98; BMI 39.4; BMI 40.6
--- NOTE | 2025-03-20 17:52 | EKG12_ITS ---
Test Reason : SOB Blood Pressure : */* mmHG Vent. Rate : 139 BPM Atrial Rate : * BPM P-R Int : * ms QRS Dur : 94 ms QT Int : 350 ms P-R-T Axes : * -29 99 degrees QTcB Int : 532 ms Atrial fibrillation with rapid ventricular response with premature ventricular or aberrantly conducted complexes Nonspecific T wave abnormality Abnormal ECG Confirmed by CURT DENTON, JE ([id number]), content editor ALIN AIKEN ([id number]) on 03/21/2025 8:20:23 AM Referred By: Confirmed By: JE ELIAS MD
--- NOTE | 2025-03-20 18:00 | EDS_ITS ---
HPI <FELICIA Murillo - Last Filed: 03/20/25 20:38> History of Present Illness Chief Complaint: Abn Labs Narrative Narrative: Patient presenting today due to dyspnea with exertion and bilateral leg swelling that has been ongoing for about a month but progressively worsening. He reports feeling short of breath even with trying to get up out of his chair. His PCP recently increased his Lasix and is suspicious that he has CHF. However, despite increasing his Lasix his symptoms have worsened. He reports that he has gained 6 pounds in the past 2 days. He is scheduled to have an outpatient echocardiogram next week. He did have outpatient labs performed yesterday and had a follow-up with his PCP today, PCP recommended he come into the emergency department so that he can be admitted to the hospital. He is on Eliquis due to history of A-fib. Additionally reports history of COPD, no longer uses tobacco. He denies any fevers, chills, chest pain, or recent illness. [facility] <FELICIA Murillo - Last Filed: 03/20/25 20:38> [facility] Medical History (Updated 03/20/25 @ 20:38 by FELICIA Murillo) PAF (paroxysmal atrial fibrillation) CKD (chronic kidney disease), stage II Thrombocytopenia COPD (chronic obstructive pulmonary disease) Morbid obesity HLD (hyperlipidemia) HTN (hypertension) Tobacco use Anxiety and depression Cancer Home Medications ?Medication ?Instructions ?Recorded ?Last Taken ?Type lisinopril 20 mg tablet 20 mg PO QDAY hyperte 07/02/18 05:30 History albuterol sulfate 90 mcg/actuation 2 puff inhalation 4 X/DAY PRN PRN 03/20/25 Unknown History aerosol inhaler shortness of breath or wheez ing apixaban 5 mg tablet (Eliquis) 5 mg PO BID t 03/20/25 Unknown History furosemide 20 mg tablet 20 mg PO BID PRN water pill 03/20/25 Unknown History metoprolol tartrate 50 mg tablet 50 mg PO BID hyperten sandi 03/20/25 Unknown History Allergy/AdvReac Type Severity Reaction Status Date / Time sertraline (From Zoloft) Allergy Other Verified 03/20/25 17:24 Family History Father History of blood clots Lupus Bowel disease Colon cancer Skin cancer CVA (cerebral vascular accident) Mother Hypertension Surgical History History of appendectomy Social History Smoking Status: Current some day smoker tobacco type: cigarettes additional social history: DOES USE ASPIRIN ROS <FELICIA Murillo - Last Filed: 03/20/25 20:38> ROS ED Constitutional Constitutional ED: Denies chills or fever(s) Cardiovascular Cardiovascular: Denies chest pain Respiratory/Chest Respiratory/Chest: Reports dyspnea on exertion; Denies cough Gastrointestinal Gastrointestinal: Denies abdominal pain, nausea or vomiting Musculoskeletal Musculoskeletal: Denies arthralgias or myalgias Integumentary Denies rash Neurologic Neurologic: Denies weakness EXAM <FELICIA Murillo - Last Filed: 03/20/25 20:38> Physical Exam Const Vital Signs: 03/20/25 17:24 03/20/25 17:25 03/20/25 18:06 Temperature 98.7 F Temperature Source Oral Pulse Rate 66 61 Respiratory Rate 18 12 Respiratory Pattern Normal Blood Pressure 104/89 H Blood Pressure Mean 94 Blood Pressure Source Pulse Ox 98 95 Oxygen Delivery Method Room Air Room Air 03/20/25 18:30 03/20/25 19:00 03/20/25 19:42 Temperature Temperature Source Pulse Rate 120 H 130 H 125 H Respiratory Rate 23 H 23 H 18 Respiratory Pattern Blood Pressure 95/82 H 107/85 H 128/57 H Blood Pressure Mean 86 92 80 Blood Pressure Source Monitor Pulse Ox 94 97 Oxygen Delivery Method Room Air 03/20/25 20:00 03/20/25 20:00 Temperature 97.9 F Temperature Source Pulse Rate 92 97 Respiratory Rate 18 18 Respiratory Pattern Blood Pressure 114/78 114/78 Blood Pressure Mean 90 90 Blood Pressure Source Pulse Ox 97 96 Oxygen Delivery Method Room Air Positive well nourished, well developed and no apparent distress General Appearance ED: well developed HEENT Reports normocephalic and head/scalp atraumatic Mouth ED: Yes moist mucous membranes normal Eyes PERRL and EOMs intact bilaterally Neck full ROM and supple Chest Wall inspection of chest normal Resp normal respiratory effort and clear to auscultation bilaterally Cardio regular rate and regular rhythm GI soft to palpation, non-tender, non-distended and no masses Back/Spine normal ROM and normal to inspection Extremity full ROM Extremity Narrative: Bilateral lower extremity edema that is equal Neuro oriented x3, CN's II-XII intact bilaterally, moves all extremities, no focal motor deficits and no sensory deficits noted Sensorium / Orientation: awake and alert Psych mental status grossly normal and thought process normal Skin no rashes or lesions noted and no wounds <Dr. Dae Mckeon MD - Last Filed: 03/20/25 18:57> Physical Exam Const Vital Signs: 03/20/25 17:24 03/20/25 17:25 03/20/25 18:06 Temperature 98.7 F Temperature Source Oral Pulse Rate 66 61 Respiratory Rate 18 12 Respiratory Pattern Normal Blood Pressure 104/89 H Blood Pressure Mean 94 Blood Pressure Source Pulse Ox 98 95 Oxygen Delivery Method Room Air Room Air 03/20/25 18:30 03/20/25 19:00 03/20/25 19:42 Temperature Temperature Source Pulse Rate 120 H 130 H 125 H Respiratory Rate 23 H 23 H 18 Respiratory Pattern Blood Pressure 95/82 H 107/85 H 128/57 H Blood Pressure Mean 86 92 80 Blood Pressure Source Monitor Pulse Ox 94 97 Oxygen Delivery Method Room Air 03/20/25 20:00 03/20/25 20:00 Temperature 97.9 F Temperature Source Pulse Rate 92 97 Respiratory Rate 18 18 Respiratory Pattern Blood Pressure 114/78 114/78 Blood Pressure Mean 90 90 Blood Pressure Source Pulse Ox 97 96 Oxygen Delivery Method Room Air [facility] <FELICIA Murillo - Last Filed: 03/20/25 20:38> [facility] Narrative Medical decision making narrative: Patient presenting today due to concerns for CHF exacerbation. He has not had an echo recently but his PCP is suspicious he has CHF and he is scheduled to have an echo next week. He has been having increasingly worse leg swelling and dyspnea with exertion over the past month and despite increasing his Lasix dose he has gained 6 pounds over the past 2 days. After seeing his PCP again in the office today, he was advised to come here for admission to the hospital. He did have a BNP obtained yesterday that was 8957. He was given IV metoprolol, digoxin initially and his heart rate did somewhat improve but he is still consistently tachycardic around 120 bpm, he was given IV Cardizem and placed on a Cardizem drip. Heart rate is now controlled. After speaking with the hospitalist he will be admitted in stable condition. Lab Data Attestation: I reviewed the patient's lab results. Labs: Laboratory Results - last 24 hr 03/20/25 17:33 WBC 7.8 RBC 5.11 Hgb 16.1 Hct 48.7 MCV 95.3 H MCH 31.5 MCHC 33.1 RDW Std Deviation 53.7 H RDW Coeff of Hair 15.2 H Plt Count 87 L MPV 11.3 Immature Gran % (Auto) 0.400 Neut % (Auto) 58.4 Lymph % (Auto) 31.0 [place] % (Auto) 9.7 Eos % (Auto) 0.4 Baso % (Auto) 0.1 Absolute Neuts (auto) 4.5 Absolute Lymphs (auto) 2.40 Nucleated RBC % 0 Platelet Estimate MOD DEC Polychromasia 1+ Anisocytosis 1+ Sodium 133 Potassium 4.3 Chloride 93 L Carbon Dioxide 30.7 Anion Gap 10 BUN 25 H Creatinine 1.50 H Estim Creat Clear Calc 58.08 Est GFR (MDRD) Non-Af 49 L BUN/Creatinine Ratio 16.9 Glucose 108 H Calcium 8.1 Radiography X-Ray: Read by ED Physician Diagnostic Testing: Clinical Impression(s) from Imaging Studies Chest X-Ray 03/20/25 18:13 IMPRESSION: Findings suggestive of vascular congestion. Reading Location: [facility] EKG Initial EKG: Comments: 139 bpm, A-fib with RVR, no ST elevation, interpreted by attending ED physician <Dr. Dae Mckeon MD - Last Filed: 03/20/25 18:57> [facility] Lab Data Labs: Laboratory Results - last 24 hr 03/20/25 17:33 WBC 7.8 RBC 5.11 Hgb 16.1 Hct 48.7 MCV 95.3 H MCH 31.5 MCHC 33.1 RDW Std Deviation 53.7 H RDW Coeff of Hair 15.2 H Plt Count 87 L MPV 11.3 Immature Gran % (Auto) 0.400 Neut % (Auto) 58.4 Lymph % (Auto) 31.0 [place] % (Auto) 9.7 Eos % (Auto) 0.4 Baso % (Auto) 0.1 Absolute Neuts (auto) 4.5 Absolute Lymphs (auto) 2.40 Nucleated RBC % 0 Platelet Estimate MOD DEC Polychromasia 1+ Anisocytosis 1+ Sodium 133 Potassium 4.3 Chloride 93 L Carbon Dioxide 30.7 Anion Gap 10 BUN 25 H Creatinine 1.50 H Estim Creat Clear Calc 58.08 Est GFR (MDRD) Non-Af 49 L BUN/Creatinine Ratio 16.9 Glucose 108 H Calcium 8.1 Radiography Diagnostic Testing: Clinical Impression(s) from Imaging Studies Chest X-Ray 03/20/25 18:13 IMPRESSION: Findings suggestive of vascular congestion. Reading Location: [facility] Treatment and Re-Evaluation Comments:: I have personally performed a face to face assessment of the patient and have reviewed the MEÑO Note. I performed a substantive portion of the visit including all aspects of the following. My christine findings include: History is waking due to edema and dyspnea with exertion for the past month or more, despite taking furosemide as an outpatient and getting worse now. Has an outpatient echo scheduled for 5 days from now. History of A-fib. Feeling lightheaded on occasion, no chest pain and no syncope. Exam is anasarca lower extremities up to lower abdomen. Diminished throughout lungs, not frankly wet. Some mild JVD present. Conversive in full sentences while sitting or rest. Abdomen benign. Medical Decison Making 2 view chest x-ray my interpretation shows mild cephalization and cardiomegaly, very small blunting of the CVA suggestive of effusions bilaterally, no overt edema/infiltrate. EKG consistent with A-fib with RVR but nothing acute. His blood pressure was 95 systolic with a heart rate in the 120s, so we initially gave him digoxin in addition to a dose of IV metoprolol 5 mg since he has not had his evening dose of metoprolol yet. He does have some mild DAVID. Plan is for admission and further evaluation and treatment. Other additions or changes: [None] Discharge Plan Dx/Rx/DC Orders Clinical Impression: Acute systolic CHF (congestive heart failure), Atrial fibrillation with RVR, History of COPD, Dyspnea Disposition Disposition: [facility] Discharge Date/Time: 03/20/25 20:30
--- NOTE | 2025-03-20 18:13 | RAD_ITS ---
PROCEDURE: CHEST PA AND LATERAL 03/20/2025 REASON FOR EXAM: SOB TECHNIQUE: Frontal and lateral views of the chest. COMPARISON: CT chest 12/05/2018 and chest radiograph 03/03/2025 FINDINGS: Hardware: None Heart: Heart size is mildly enlarged. Mediastinum: The mediastinal contour is unremarkable. Lungs: Mild interstitial thickening. Bibasilar atelectasis. No pneumothorax. No focal consolidation. Bones: Degenerative changes are identified within the thoracic spine. RAD/Chest PA and Lateral IMPRESSION: Findings suggestive of vascular congestion. [facility]
[2025-03-20 18:20] LABS: Absolute Neutrophil Count 4.5 X10^3/uL (2.0-7.7); Basophil# 0.01 X10^3/uL; Basophil% 0.1 % (0-1); Eosinophil# 0.03 X10^3/uL; Eosinophils% 0.4 % (0-5); Hematocrit 48.7 % (40-54); Hemoglobin 16.1 g/dL (13.0-16.5); Mean Corp Hgb Conc 33.1 g/dL (32-36); Mean Corpuscular Hgb 31.5 pg (27.0-32.0); Mean Corpuscular Volume 95.3 fL (80-94); Mean Platelet Vol. 11.3 fl (6.2-12.0); Monocyte# 0.75 X10^3/uL; Monocyte% 9.7 % (0-10); NRBC Flagged by Analyzer 0 % (0-5); Neutrophil # 4.53 X10^3/uL (2.7-7.7); Neutrophil % 58.4 % (47-70); POSITIVE COUNT YES; Platelet Count 87 K/mm3 (150-450); RBC Distribution Width CV 15.2 % (11.6-14.6); RBC Distribution Width SD 53.7 fl (35.1-43.9); Red Blood Count 5.11 M/mm3 (4.6-6.2); White Blood Count 7.8 K/mm3 (4.4-11.0)
[2025-03-20 18:36] LABS: Anion Gap 10 (5-15); BUN 25 mg/dL (4-19); BUN/Creat Ratio 16.9 RATIO (10-20); Calcium,Total 8.1 mg/dL (7.6-11.0); Carbon Dioxide 30.7 mmol/L (21.0-32.0); Chloride 93 mmol/L (98-108); EST Glomerular Filtration Rate 49 (>60); Estimated Creatinine Clearance 58.08 ml/min (50-250); Glucose 108 mg/dL (70-99); Potassium 4.3 mmol/L (3.3-5.1); Sodium Level 133 mmol/L (133-145)
[2025-03-20] MEDS: Metoprolol Tartrate 5 MG/5 ML Vial IV (18:53)
[2025-03-20] MEDS: Digoxin 250 MCG/ML Ampul IV (18:53)
[2025-03-20 19:36] LABS: Differential Indicated SCAN CRITERIA MET
[2025-03-20 19:37] LABS: Anisocytosis 1+; Platelet Estimate MOD DEC (ADEQ); Polychromasia 1+
[2025-03-20] MEDS: Diltiazem 125 MG in Dextrose 5%-Water (100mL Bag) 100 ML IV (19:42)
[2025-03-20] MEDS: dilTIAZem 25 MG/5 ML Vial 10 MG IV BOLUS (19:45)
--- NOTE | 2025-03-20 19:51 | HP.PCM.HOS_ITS ---
HPI - General General Date of Admission: 03/20/25 Date of Service: 03/20/25 Chief Complaint: Dyspnea, orthopnea, weight gain, edema. HPI Narrative The patient is a 69 y/o M w/ PMHx: Morbid obesity, HTN, HLD, Anxiety and Depression, COPD, Tobacco use, HFrEF, PAF who presents to the [facility] ED on 03/20/2025 with history of approximately 4 weeks of progressively worsening dyspnea, worse with exertion, bilateral lower extremity swelling and weight gain as well as orthopnea with PCP evaluation with suspicion for heart failure with Lasix administration however despite this he has continued to gain weight noting that he is gained 6 pounds over the last 2 days alone with planned outpatient PCP with repeat labs today prior however given his worsened status PCP recommended presented to the ED for evaluation. PCP did perform an outpatient BNP that was noted to be 8957. He notes that he has gained approximately 50 pounds over the last couple months. Workup in the ED included T98.7, heart rate 66, BP 104/89, respiratory rate 18, 90% on room air with most recent repeat vitals heart rate 130, BP 107/85, respiratory rate 23, 94% room air, CBC w/ WBC 7.8, Hgb 16.1, Plts 87 without shift, BMP with chloride 93, BUN/creatinine 25/1.50, GFR 49, glucose 108, CXR with mild cephalization, mild blunting BL bases however final read pending per radiology, EKG with atrial fibrillation with RVR. In ED patient ministered metoprolol 5 mg IV x 1, digoxin 250 mcg IV x 1. BP did improve therefore per discussion with the patient currently being to cardizem drip given no marked change in rate. [facility]LY [facility] Medical History PAF (paroxysmal atrial fibrillation) CKD (chronic kidney disease), stage II Thrombocytopenia COPD (chronic obstructive pulmonary disease) Morbid obesity HLD (hyperlipidemia) HTN (hypertension) Tobacco use Anxiety and depression Cancer Home Medications ?Medication ?Instructions ?Recorded ?Last Taken ?Type lisinopril 20 mg tablet 20 mg PO QDAY hyperte 07/02/18 05:30 History albuterol sulfate 90 mcg/actuation 2 puff inhalation 4 X/DAY PRN PRN 03/20/25 Unknown History aerosol inhaler shortness of breath or wheez ing apixaban 5 mg tablet (Eliquis) 5 mg PO BID t 03/20/25 Unknown History furosemide 20 mg tablet 20 mg PO BID PRN water pill 03/20/25 Unknown History metoprolol tartrate 50 mg tablet 50 mg PO BID hyperten sandi 03/20/25 Unknown History Allergy/AdvReac Type Severity Reaction Status Date / Time sertraline (From Zoloft) Allergy Other Verified 03/20/25 17:24 Family History Father History of blood clots Lupus Bowel disease Colon cancer Skin cancer CVA (cerebral vascular accident) Mother Hypertension Surgical History History of appendectomy Social History (Updated 03/20/25 @ 20:[address] Sophia Lowe MD) household members: spouse Smoking Status: Current some day smoker tobacco type: cigarettes alcohol intake: never substance use type: does not use additional social history: DOES USE ASPIRIN ROS ROS Narrative Admission Review of Systems: CONSTITUTIONAL: No weight loss, fever, chills, + weakness or fatigue. HEENT: Eyes: No visual loss, blurred vision, double vision or yellow sclerae. Ears, Nose, Throat: No hearing loss, sneezing, congestion, runny nose or sore throat. SKIN: No rash or itching, lesions, wounds. CARDIOVASCULAR: + Dyspnea, orthopnea, edema, weight gain. No palpitations, syncopal events. RESPIRATORY: + Dyspnea, worse with exertion. No wheezing, hemoptysis. GASTROINTESTINAL: No anorexia, nausea, vomiting or diarrhea, abdominal pain, melena, BRBPR. GENITOURINARY: No dysuria, frequency, urgency or retention. NEUROLOGICAL: No headache, dizziness, syncope, paralysis, ataxia, numbness or tingling in the extremities, focal weakness, change in bowel or bladder control, seizure. MUSCULOSKELETAL: + muscle, back pain, joint pain or stiffness. HEMATOLOGIC: No anemia. + Easy bleeding/bruising. LYMPHATICS: No enlarged nodes. No history of splenectomy. PSYCHIATRIC: + History of anxiety and depression. ENDOCRINOLOGIC: No reports of sweating, cold or heat intolerance. No polyuria or polydipsia. ALLERGIES: + History of allergic rhinitis. Vital Signs Vital Signs Vital Signs: 03/20/25 17:24 03/20/25 17:25 03/20/25 18:06 Temperature 98.7 F Temperature Source Oral Pulse Rate 66 61 Respiratory Rate 18 12 Respiratory Pattern Normal Blood Pressure 104/89 H Blood Pressure Mean 94 Blood Pressure Source Pulse Ox 98 95 Oxygen Delivery Method Room Air Room Air 03/20/25 18:30 03/20/25 19:00 03/20/25 19:42 Temperature Temperature Source Pulse Rate 120 H 130 H 125 H Respiratory Rate 23 H 23 H 18 Respiratory Pattern Blood Pressure 95/82 H 107/85 H 128/57 H Blood Pressure Mean 86 92 80 Blood Pressure Source Monitor Pulse Ox 94 97 Oxygen Delivery Method Room Air Weight Weight: 267 lb 3.2 oz Body Mass Index (BMI) 39.4 Physical Exam Narrative Physical Examination: General: Awake, alert, oriented x 3 and cooperative, seated upright in the ED bed, fatigued. Skin: Normal color, normal turgor, no icterus, no cyanosis except occasional stage ecchymoses, abrasion, significant lichenification of the lower extremities, bilateral lower extremity chronic venous stasis skin changes. HEENT: AT/NC, EOMI, PERRLA, mildly dry oropharynx, no carotid bruits, difficult to discern JVD given thickened neck. Or JVD noted. Lungs: Diminished, greater bases, no marked rales evident, no evidence of any distress, no rhonchi or wheezing. Heart: Irregular irregular, improving from initial arrival however; no gallop, rub audible. Abdomen: Soft, morbidly obese, NTTP, distant BS, difficult to discern distention and HSM given habitus. Extremities: No cyanosis, no clubbing, significant pedal to lower abdominal 2-3+ pitting edema. Neurological: Patient awake, alert, oriented as noted, cognitive function intact; pupils equally reactive to light and accommodation, cranial nerves gross normal, moving all 4 extremities, no focal deficits, strength moderately to severely globally decreased secondary to acute presentation. Psychiatric: Affect appears fatigued, no acute evidence of depressive or anxiety feelings. Results Lab / Micro Data 03/20/25 17:33 03/20/25 17:33 Labs: Laboratory Results - last 24 hr 03/20/25 17:33: WBC 7.8, RBC 5.11, Hgb 16.1, Hct 48.7, MCV 95.3 H, MCH 31.5, MCHC 33.1, RDW Std Deviation 53.7 H, RDW Coeff of Hair 15.2 H, Plt Count 87 L, MPV 11.3, Immature Gran % (Auto) 0.400, Neut % (Auto) 58.4, Lymph % (Auto) 31.0, [place] % (Auto) 9.7, Eos % (Auto) 0.4, Baso % (Auto) 0.1, Absolute Neuts (auto) 4.5, Absolute Lymphs (auto) 2.40, Nucleated RBC % 0, Platelet Estimate MOD DEC, Polychromasia 1+, Anisocytosis 1+, Sodium 133, Potassium 4.3, Chloride 93 L, Carbon Dioxide 30.7, Anion Gap 10, BUN 25 H, Creatinine 1.50 H, Estim Creat Clear Calc 58.08, Est GFR (MDRD) Non-Af 49 L, BUN/Creatinine Ratio 16.9, Glucose 108 H, Calcium 8.1 Assessment & Plan Assessment/Plan (1) Acute systolic CHF (congestive heart failure): (2) Atrial fibrillation with RVR: PLAN: Plan The patient is a 69 y/o M w/ PMHx: Morbid obesity, HTN, HLD, Anxiety and Depression, COPD, Tobacco use, HFrEF, PAF who presents to the [facility] ED on 03/20/2025 with history of approximately 4 weeks of progressively worsening dyspnea, worse with exertion, bilateral lower extremity swelling and weight gain as well as orthopnea with PCP evaluation with suspicion for heart failure with Lasix administration however despite this he has continued to gain weight noting that he is gained 6 pounds over the last 2 days alone with planned outpatient PCP with repeat labs today prior however given his worsened status PCP recommended presented to the ED for evaluation. #1. Acute Decompensated HFrEF complicated by #2: Will admit to PCU, maintain on cardiac telemetry, obtain cardiac enzyme series, obtain serial EKGs, maintain as BP allows on IV lasix diuresis with lower dose drip, monitor I/Os, maintain on intake restriction, continue medical therapy with Eliquis, Cardizem drip as noted with transition to metoprolol as able, not on statin therapy with FLP requested, obtain TSH and magnesium level, echocardiogram quested, will place neck sydnee wraps with lower extremity elevation. Temporarily holding lisinopril as noted. #2. Paroxsymal atrial fibrillation w/ RVR: EKG in ED w/ atrial fibrillation w/ RVR. Patient administered Lopressor 5 mg IV x 1 and digoxin to 150 mcg IV x 1 in ED. Will maintain on telemetry, obtain cardiac enzyme serial set, obtain magnesium level, obtain ECHO, obtain TSH level. Will continue Cardizem drip admission in the ED with transition to metoprolol as able, continue home Eliquis regimen. #3. Acute kidney injury on CKD stage II per previous GFR trending: Secondary to #1, #2 and recent possible Lasix increase. Admission BUN/Cr 25/1.50, GFR 49, prior baseline creatinine noted to be 03/18/2025 creatinine 1.21 and previous to this on 03/03/2025 creatinine 1.06 however baseline noted prior to even this was 0.8-0.9 primarily. Given current presentation will continue to require diuresis as able, will temporarily hold lisinopril, add back once clinically appropriate. #4. Thrombocytopenia, unclear if chronic: Unclear etiology, admission Plts 87, prior 03/03/25 Plts 100, cautiously continue eliquis, continue to trend CBC. #5. Chronic COPD: Not on chronic regimen per current list, will maintain on ATC ipratropium regimen, PRN albuterol only if absolutely necessary given PAF with RVR, HOB, IS parameters. #6. Hypertension: Continue home regimen including IV Cardizem drip as noted, IV Lasix PRN hydralazine. Temporarily holding lisinopril as noted. Add back metoprolol as able. #7. Hyperlipidemia: Not on regimen, no allergy listed, FLP in AM. #8. Tobacco Abuse: Encouraged cessation, inpatient consultation per RT, NR if desired. #9. Morbid Obesity: Weight loss and lifestyle changes encouraged. #10. Anxiety and depression: Per current list patient is only on lorazepam as needed however clarifying as this may be remote. #11. DVT prophylaxis: Continue home Eliquis regimen. #12. CODE status: Patient HCPOA and living will are not in place but his who is present he notes would be his medical decision-maker if necessary. Discussed CODE status at length including difference between FULL code, DNR-CCA and DNR-CC status. Following discussions about the differences in these status, requested Full Code status. Advanced Care Planning Face to Face Time: 16 minutes. Charges/Coding Visit Charges Inpatient E&M: 79921 Init Hosp L3 Procedures Hospitalists Procedures: 37447 Advncd Care Plan 30 Min
[2025-03-20] MEDS: Diltiazem 125 MG in Dextrose 5%-Water (100mL Bag) 100 ML CONT INF (20:45)
[2025-03-20] MEDS: Furosemide 500 MG in Empty Viaflex 50 mL 1 EACH CONT INF (21:08)
[2025-03-20] MEDS: 0.9% Saline Lock 10 ML Syringe IV (21:11)
[2025-03-20] MEDS: Metoprolol Tartrate 50 MG Tablet PO (21:13)
[2025-03-20] MEDS: APIXABAN 5 MG TABLET PO (21:13)
[2025-03-20 21:57] LABS: Troponin T High Sensitivity 39 ng/L (<=22)
[2025-03-20 23:56] LABS: Troponin T High Sens 2 HR 39 ng/L (<=22)
[2025-03-21] VITALS (27 sets, daily range): BP systolic 78–118; BP diastolic 64–89; PULSE 61–105; RESP 17–25; TEMP 36.4–37; O2SAT 92–96; BMI 40.6
[2025-03-21 01:23] LABS: Troponin T High Sens 4 HR 37 ng/L (<=22)
[2025-03-21 05:20] LABS: Absolute Lymphocyte Count 2.25 X10^3/uL (0.83-4.51); Absolute Neutrophil Count 4.1 X10^3/uL (2.0-7.7); Basophil# 0.01 X10^3/uL; Basophil% 0.1 % (0-1); Eosinophil# 0.02 X10^3/uL; Eosinophils% 0.3 % (0-5); Hematocrit 45.2 % (40-54); Lymphocyte # 2.25 X10^3/ul (0.83-4.51); Lymphocyte % 31.8 % (19-41); Mean Corp Hgb Conc 33.2 g/dL (32-36); Mean Corpuscular Hgb 31.4 pg (27.0-32.0); Mean Corpuscular Volume 94.8 fL (80-94); Mean Platelet Vol. 11.1 fl (6.2-12.0); Monocyte# 0.67 X10^3/uL; Monocyte% 9.5 % (0-10); NRBC Flagged by Analyzer 0 % (0-5); Neutrophil % 57.9 % (47-70); POSITIVE COUNT YES; Platelet Count 83 K/mm3 (150-450); RBC Distribution Width CV 15.4 % (11.6-14.6); RBC Distribution Width SD 52.9 fl (35.1-43.9); Red Blood Count 4.77 M/mm3 (4.6-6.2); White Blood Count 7.1 K/mm3 (4.4-11.0)
--- NOTE | 2025-03-21 05:55 | ECHOCS_ITS ---
Reason For Study Reason For Study: CHF Procedure This was a 2D Doppler, Color Flow transthoracic echocardiogram. The study was technically difficult. Contrast injection was performed. Exam performed portable in patient room. Left Ventricle Normal LV size. D shaped septum in systole and diastole. Moderate concentric left ventricular hypertrophy. The estimated ejection fraction is 10-15 %. Unable to assess diastolic dysfunction due to arrhythmia. Right Ventricle Moderately dilated right ventricle. Moderate global right ventricular systolic dysfunction. Atria The left atrium is mildly enlarged. The right atrium is mildly enlarged. Mitral Valve The mitral valve is structurally normal. No prolapse or stenosis seen. Mild (1+) mitral valve insufficiency. Tricuspid Valve Normal tricuspid valve. Mild (1+) eccentric tricuspid valve insufficiency. Pulmonary artery systolic pressure is 41 mmHg. Aortic Valve Trisinus/trileaflet aortic valve. Pulmonic Valve Normal pulmonic valve. Great Vessels Mildly dilated aortic root. Pericardium/Pleural No pericardial effusion. Medication Diluted definity 2.5ml given slow IV push to enhance endocardial definition. MMode/2D Measurements & Calculations LVIDd: 5.2 cm IVSd: 1.4 cm LVOT diam: 2.0 cm LVIDs: 4.9 cm LVPWd: 1.4 cm FS: 5.8 % LVOT area: 3.1 cm2 Ao root diam: 4.0 cm LAV(MOD-bp): 87.2 ml LVAd ap4: 44.7 cm2 LAV(MOD-bp) Indexed: 37.8 ml/m2 LVLd ap4: 9.7 cm LAV(MOD-sp2): 91.5 ml EDV(MOD-sp4): 168.3 ml LAV(MOD-sp4): 74.9 ml EDV(sp4-el): 174.4 ml LVAs ap4: 37.5 cm2 LVLs ap4: 8.0 cm ESV(MOD-sp4): 146.5 ml ESV(sp4-el): 148.9 ml EF(MOD-sp4): 13.0 % EF(sp4-el): 14.6 % SV(MOD-sp4): 21.8 ml SV(sp4-el): 25.5 ml LA A4 area: 24.8 cm2 SI(MOD-sp4): 9.4 ml/m2 LA dimension(2D): 5.1 cm RA A4 area: 25.9 cm2 Doppler Measurements & Calculations MV E max reuben: 71.7 cm/sec Ao V2 max: 117.5 cm/sec LV V1 max: 69.3 cm/sec Ao max P.5 mmHg LV V1 max P.1 mmHg Ao V2 mean: 87.2 cm/sec LV V1 mean P.2 mmHg Ao mean P.4 mmHg LV V1 mean: 48.7 cm/sec Ao V2 VTI: 21.6 cm LV V1 VTI: 10.2 cm AV (velocity ratio): 0.47 CLAUDIO(I,D): 1.5 cm2 CLAUDIO(V,D): 1.9 cm2 SV(LVOT): 32.0 ml TR max reuben: 255.8 cm/sec TR max P.2 mmHg ECHO/Echo Complete W/ Contrast Interpretation Summary The estimated ejection fraction is 10-15 %. Moderate concentric left ventricular hypertrophy. Moderate global right ventricular systolic dysfunction. Moderately dilated right ventricle. The left atrium is mildly enlarged. The right atrium is mildly enlarged. Mild (1+) mitral valve insufficiency. Mild (1+) eccentric tricuspid valve insufficiency. Ordering Physician: Chrissy^Sophia^Da^^ Referring Physician: Lee Mathews MD Performed By: Reema Shepard RCS
[2025-03-21 06:22] LABS: ALB/GLOB Ratio 1.4 RATIO (0.9-2.4); AST(SGOT) 135 U/L (<=37); Alanine Aminotransfer ALT/SGPT 128 U/L (<=46); Albumin, Serum 3.4 g/dL (3.4-4.8); Alkaline Phosphatase 178 U/L (40-129); Anion Gap 12 (5-15); BUN 27 mg/dL (4-19); BUN/Creat Ratio 19.2 RATIO (10-20); Carbon Dioxide 29.4 mmol/L (21.0-32.0); Chloride 94 mmol/L (98-108); Cholesterol 96 mg/dL (<=200); EST Glomerular Filtration Rate 54 (>60); Estimated Creatinine Clearance 61.25 ml/min (50-250); Globulin 2.4 g/dL (2.2-4.2); Glucose 92 mg/dL (70-99); High Density Lipoprotein 43 mg/dL; Low Density Lipoprotein Calc. 44 mg/dL; Phosphorus 3.9 mg/dL (2.7-4.5); Potassium 3.7 mmol/L (3.3-5.1); Protein, Total 5.8 g/dL (5.9-8.4); Sodium Level 135 mmol/L (133-145); Total Bilirubin 1.09 mg/dL (0.00-1.30); Triglycerides 47 mg/dL; Very Low Density Lipoprotein 9 mg/dL (5-40); cholesterol:hdl ratio screen 2.25
[2025-03-21] MEDS: Ipratropium 0.5 MG/2.5 ML SOLUTION INHALATION ×3 (06:46→20:41)
[2025-03-21] MEDS: Metoprolol Tartrate 50 MG Tablet PO ×2 (09:46→21:21)
[2025-03-21] MEDS: APIXABAN 5 MG TABLET PO ×2 (09:46→21:22)
--- NOTE | 2025-03-21 10:16 | PCM.PN.HOSP ---
Reason for Visit Reason for Visit: Diagnoses Unspecified atrial fibrillation (03/20/25) Acute systolic (congestive) heart failure (03/20/25) Subjective Subjective Patient is a 69-year-old gentleman who was sent to the ED by the primary care physician on account of increasing shortness of breath with minimal activity as well as generalized swelling. An assessment of acute congestive heart failure was made admitted to monitored bed for further management Objective Data Objective Data Vital Signs: Vital Signs Temp Pulse Resp BP Pulse Ox O2 Del Method 97.8 F 98 22 H 102/67 94 Room Air 03/21/25 10:00 03/21/25 10:00 03/21/25 10:00 03/21/25 10:00 03/21/25 10:00 03/21/25 10:00 Oxygen Delivery Method Room Air Weight: 121.1 kg Body Mass Index (BMI) 40.6 Intake & Output: Intake and Output for Last 24 Hours 03/19/25 03/20/25 03/21/25 23:59 23:59 23:59 Intake Total 16.50 / 66.50 344.83 / 344.83 Output Total 1645 / 1645 Balance 16.50 / -233.50 -1300.17 / -1300.17 Lab / Micro Data 03/21/25 04:51 03/21/25 04:51 Labs: Laboratory Results - last 24 hr 03/20/25 17:33: WBC 7.8, RBC 5.11, Hgb 16.1, Hct 48.7, MCV 95.3 H, MCH 31.5, MCHC 33.1, RDW Std Deviation 53.7 H, RDW Coeff of Hair 15.2 H, Plt Count 87 L, MPV 11.3, Immature Gran % (Auto) 0.400, Neut % (Auto) 58.4, Lymph % (Auto) 31.0, [place] % (Auto) 9.7, Eos % (Auto) 0.4, Baso % (Auto) 0.1, Absolute Neuts (auto) 4.5, Absolute Lymphs (auto) 2.40, Nucleated RBC % 0, Platelet Estimate MOD DEC, Polychromasia 1+, Anisocytosis 1+, Sodium 133, Potassium 4.3, Chloride 93 L, Carbon Dioxide 30.7, Anion Gap 10, BUN 25 H, Creatinine 1.50 H, Estim Creat Clear Calc 58.08, Est GFR (MDRD) Non-Af 49 L, BUN/Creatinine Ratio 16.9, Glucose 108 H, Calcium 8.1, Magnesium 2.0 03/20/25 21:05: Troponin T High Sens 39 H 03/20/25 22:52: Troponin T Hi Sens 2 Hr 39 H 03/21/25 01:00: Troponin T Hi Sens 4Hr 37 H 03/21/25 04:51: WBC 7.1, RBC 4.77, Hgb 15.0, Hct 45.2, MCV 94.8 H, MCH 31.4, MCHC 33.2, RDW Std Deviation 52.9 H, RDW Coeff of Hair 15.4 H, Plt Count 83 L, MPV 11.1, Immature Gran % (Auto) 0.400, Neut % (Auto) 57.9, Lymph % (Auto) 31.8, [place] % (Auto) 9.5, Eos % (Auto) 0.3, Baso % (Auto) 0.1, Absolute Neuts (auto) 4.1, Absolute Lymphs (auto) 2.25, Nucleated RBC % 0, Sodium 135, Potassium 3.7, Chloride 94 L, Carbon Dioxide 29.4, Anion Gap 12, BUN 27 H, Creatinine 1.40 H, Estim Creat Clear Calc 61.25, Est GFR (MDRD) Non-Af 54 L, BUN/Creatinine Ratio 19.2, Glucose 92, Calcium 8.0, Phosphorus 3.9, Total Bilirubin 1.09, AST 135 H, ALT 128 H, Alkaline Phosphatase 178 H, Total Protein 5.8 L, Albumin 3.4, Globulin 2.4, Albumin/Globulin Ratio 1.4, Triglycerides 47, Cholesterol 96, LDL Cholesterol, Calc 44, VLDL Cholesterol 9, HDL Cholesterol 43, Cholesterol/HDL Ratio 2.25, TSH 1.460 Radiography Diagnostic Testing: Radiology Impression Chest X-Ray 03/20/25 18:13 IMPRESSION: Findings suggestive of vascular congestion. Reading Location: [facility] Physical Exam Narrative GENERAL: cooperative HEENT: Atraumatic; normocephalic EYES; Anicteric, Normal Conjunctiva NECK; supple, normal thyroid, RESPIRATORY: Diminished to auscultation CARDIOVASCULAR: Regular S1 S2, GI: soft, normoactive bowel sounds, : No Renal angle tenderness; EXTREMITIES: Bipedal edema MUSCULOSKELETAL: no muscle wasting NEURO: Awake; no lateralizing signs. SKIN: No Rash PSYCH; Flat affect Assessment & Plan Assessment/Plan (1) Acute systolic CHF (congestive heart failure): (2) Atrial fibrillation with RVR: PLAN: Plan Patient is a 69-year-old gentleman who was sent to the ED by the primary care physician on account of increasing shortness of breath with minimal activity as well as generalized swelling. An assessment of acute congestive heart failure was made admitted to monitored bed for further management 1. Acute decompensated congestive heart failure ? Type unknown. Admitted to monitored bed manage with strict input and output, daily weight, fluid restriction, low-sodium diet as well as diuretic therapy with furosemide drip. Echo ordered for EF assessment. Consult was placed to cardiology 2. Paroxysmal atrial fibrillation ? Patient presented with RVR. Patient was started on Cardizem drip admitted to monitored bed. Cardizem drip being titrated to keep heart rate less than 100 3. Acute kidney injury ? Creatinine from 03/03/2025 was 1.06 creatinine on admission was 1.50. This is suspected to be secondary to hypoperfusion from CHF do expect improvement in kidney function with with diuresis. Repeat BMP ordered in a.m. for monitoring 4. Essential hypertension Patient is on metoprolol did continue lisinopril was held given patient worsening kidney function 5. Class III obesity with BMI of 40.6 ? Complicating care weight loss advised 6. Tobacco dependence ? Counseled on cessation, offered nicotine patch for tobacco cravings 7. COPD ? Currently not in exacerbation aerosol treatment as needed 8. Abnormal LFTs ? Suspected to be secondary to hepatic congestion from CHF repeated LFTs in a.m. for further management 9. Elevated troponin Suspected to be secondary to demand ischemia from congestive heart failure. Patient troponins have remained flat. Echo has been ordered for LVEF assessment 10. DVT prophylaxis ? Patient is on systemic anticoagulation with apixaban Charges/Coding Visit Charges Inpatient E&M: 71500 Subs Hosp L3
[2025-03-21] MEDS: 0.9% Saline Lock 10 ML Syringe IV ×2 (12:47→14:26)
--- NOTE | 2025-03-21 13:05 | CON.PCM.CA_ITS ---
Assessment & Plan Assessment/Plan (1) Dyspnea: (2) History of COPD: (3) Acute systolic CHF (congestive heart failure): (4) Smoker: (5) Atrial fibrillation with RVR: PLAN: Plan 69-year-old patient with multiple medical comorbidities Patient morbidly obese with history of hypertension, hyperlipidemia, history of COPD Tobacco user Has a history of paroxysmal A-fib and heart failure reduced EF On this admission patient has symptoms of shortness of breath and weight gain. Seen by PCP who recommended to be seen and evaluated in the ED Admitted for management of the acute on chronic systolic heart failure as well management of the A-fib with RVR. Cardiac care plan; Patient has severe LV systolic dysfunction. Will start on CHF protocol with restriction of fluid intake With echocardiogram today revealed EF in the range of 10-15% with global LV hypokinesia. Has been on anticoagulation with Eliquis. Patient is on IV Lasix infusion. Will monitor electrolytes and renal function. Does not have any active chest pain In the on review of the cardiac exercise physiologist noted the patient had A-fib with RVR Has been on IV Cardizem which discontinued. Due to negative inotropic effect patient already had severe LV dysfunction with Will continue on on beta-shaniqua metoprolol in addition to low-dose digoxin. Will evaluate with BNP/trops. Will continue to monitor and follow-up clinically. Krissy Freitas MD,[facility] HPI Consult Data Date of Consult: 03/21/25 HPI Narrative Reason for Consultation: Acute systolic heart failure/A-fib with RVR HPI Narrative: KELVIN HERNANDEZ, is a 69 M who [facility] Medical History PAF (paroxysmal atrial fibrillation) CKD (chronic kidney disease), stage II Thrombocytopenia COPD (chronic obstructive pulmonary disease) Morbid obesity HLD (hyperlipidemia) HTN (hypertension) Tobacco use Anxiety and depression Cancer Home Medications ?Medication ?Instructions ?Recorded ?Last Taken ?Type lisinopril 20 mg tablet 20 mg PO QDAY hypertension 0 06/22/18 07/02/18 05:30 History albuterol sulfate 90 mcg/actuation 2 puff inhalation 4 X/DAY PRN PRN 03/20/25 Unknown History aerosol inhaler shortness of breath or wheez ing apixaban 5 mg tablet (Eliquis) 5 mg PO BID blood thinn er 03/20/25 Unknown History furosemide 20 mg tablet 20 mg PO BID PRN water pill, 03/20/25 Unknown History diuretic metoprolol tartrate 50 mg tablet 50 mg PO BID afib 12/14 Unknown History Allergy/AdvReac Type Severity Reaction Status Date / Time sertraline (From Zoloft) Allergy Other Verified 03/20/25 17:24 Family History Father History of blood clots Lupus Bowel disease Colon cancer Skin cancer CVA (cerebral vascular accident) Mother Hypertension Surgical History History of appendectomy Social History (Updated 03/20/25 @ 20:[address] Sophia Lowe MD) household members: spouse Smoking Status: Current some day smoker tobacco type: cigarettes alcohol intake: never substance use type: does not use additional social history: DOES USE ASPIRIN Physical Exam Cardio Cardio Narrative: Seen and evaluated at bedside along with the nursing staff Review of the cardiac exercise physiologist showed A-fib with RVR Cardiac exam S1-S2 is irregular Chest exam diminished air entry bilateral Examination lower extremity unremarkable lower extremity edema +3?+4 Risk Stratification Risk Stratification Applicable: No Objective Data Vital Signs: Vital Signs Temp Pulse Resp BP Pulse Ox O2 Del Method 97.8 F 77 18 91/81 H 95 Room Air 03/21/25 10:00 03/21/25 12:00 03/21/25 12:00 03/21/25 12:00 03/21/25 12:00 03/21/25 12:00 Oxygen Delivery Method Room Air Weight: 266 lb 15.677 oz Body Mass Index (BMI) 40.6 Intake & Output: Intake and Output for Last 24 Hours 03/19/25 03/20/25 03/21/25 23:59 23:59 23:59 Intake Total 16.50 / 66.50 1018.83 / 1018.83 Output Total 2845 / 2845 Balance 16.50 / -233.50 -1826.17 / -1826.17 Lab / Micro Data 03/21/25 04:51 03/21/25 04:51 Labs: Laboratory Results - last 24 hr 03/20/25 17:33: WBC 7.8, RBC 5.11, Hgb 16.1, Hct 48.7, MCV 95.3 H, MCH 31.5, MCHC 33.1, RDW Std Deviation 53.7 H, RDW Coeff of Hair 15.2 H, Plt Count 87 L, MPV 11.3, Immature Gran % (Auto) 0.400, Neut % (Auto) 58.4, Lymph % (Auto) 31.0, [place] % (Auto) 9.7, Eos % (Auto) 0.4, Baso % (Auto) 0.1, Absolute Neuts (auto) 4.5, Absolute Lymphs (auto) 2.40, Nucleated RBC % 0, Platelet Estimate MOD DEC, Polychromasia 1+, Anisocytosis 1+, Sodium 133, Potassium 4.3, Chloride 93 L, Carbon Dioxide 30.7, Anion Gap 10, BUN 25 H, Creatinine 1.50 H, Estim Creat Clear Calc 58.08, Est GFR (MDRD) Non-Af 49 L, BUN/Creatinine Ratio 16.9, Glucose 108 H, Calcium 8.1, Magnesium 2.0 03/20/25 21:05: Troponin T High Sens 39 H 03/20/25 22:52: Troponin T Hi Sens 2 Hr 39 H 03/21/25 01:00: Troponin T Hi Sens 4Hr 37 H 03/21/25 04:51: WBC 7.1, RBC 4.77, Hgb 15.0, Hct 45.2, MCV 94.8 H, MCH 31.4, MCHC 33.2, RDW Std Deviation 52.9 H, RDW Coeff of Hair 15.4 H, Plt Count 83 L, MPV 11.1, Immature Gran % (Auto) 0.400, Neut % (Auto) 57.9, Lymph % (Auto) 31.8, [place] % (Auto) 9.5, Eos % (Auto) 0.3, Baso % (Auto) 0.1, Absolute Neuts (auto) 4.1, Absolute Lymphs (auto) 2.25, Nucleated RBC % 0, Sodium 135, Potassium 3.7, Chloride 94 L, Carbon Dioxide 29.4, Anion Gap 12, BUN 27 H, Creatinine 1.40 H, Estim Creat Clear Calc 61.25, Est GFR (MDRD) Non-Af 54 L, BUN/Creatinine Ratio 19.2, Glucose 92, Calcium 8.0, Phosphorus 3.9, Total Bilirubin 1.09, AST 135 H, ALT 128 H, Alkaline Phosphatase 178 H, Total Protein 5.8 L, Albumin 3.4, Globulin 2.4, Albumin/Globulin Ratio 1.4, Triglycerides 47, Cholesterol 96, LDL Cholesterol, Calc 44, VLDL Cholesterol 9, HDL Cholesterol 43, Cholesterol/HDL Ratio 2.25, TSH 1.460 Cardiology Labs/Tests 03/20/25 17:33: WBC 7.8, RBC 5.11, Hgb 16.1, Hct 48.7, MCV 95.3 H, MCH 31.5, MCHC 33.1, Plt Count 87 L, MPV 11.3, Immature Gran % (Auto) 0.400, Neut % (Auto) 58.4, Lymph % (Auto) 31.0, [place] % (Auto) 9.7, Eos % (Auto) 0.4, Baso % (Auto) 0.1, Absolute Neuts (auto) 4.5, Nucleated RBC % 0, Sodium 133, Potassium 4.3, C hloride 93 L, Carbon Dioxide 30.7, Anion Gap 10, BUN 25 H, Creatinine 1.50 H, E st GFR (MDRD) Non-Af 49 L, BUN/Creatinine Ratio 16.9, Glucose 108 H, Calcium 8.1, Magnesium 2.0 03/21/25 04:51: WBC 7.1, RBC 4.77, Hgb 15.0, Hct 45.2, MCV 94.8 H, MCH 31.4, MCHC 33.2, Plt Count 83 L, MPV 11.1, Immature Gran % (Auto) 0.400, Neut % (Auto) 57.9, Lymph % (Auto) 31.8, [place] % (Auto) 9.5, Eos % (Auto) 0.3, Baso % (Auto) 0.1, Absolute Neuts (auto) 4.1, Nucleated RBC % 0, Sodium 135, Potassium 3.7, C hloride 94 L, Carbon Dioxide 29.4, Anion Gap 12, BUN 27 H, Creatinine 1.40 H, E st GFR (MDRD) Non-Af 54 L, BUN/Creatinine Ratio 19.2, Glucose 92, Calcium 8.0, Phosphorus 3.9, Total Bilirubin 1.09, Triglycerides 47, Cholesterol 96, VLDL Cholesterol 9, HDL Cholesterol 43, Cholesterol/HDL Ratio 2.25 Rhythm: EKG: ECHO: Stress Test: Cardiac Cath: PCI: CT Surgery: Holter monitor: EPS: PPM: CXR: Chest CT Scan: Radiography Diagnostic Testing: Radiology Impression Chest X-Ray 03/20/25 18:13 IMPRESSION: Findings suggestive of vascular congestion. Reading Location: [facility], [facility] Echocardiogram 03/21/25 05:55 Interpretation Summary The estimated ejection fraction is 10-15 %. Moderate concentric left ventricular hypertrophy. Moderate global right ventricular systolic dysfunction. Moderately dilated right ventricle. The left atrium is mildly enlarged. The right atrium is mildly enlarged. Mild (1+) mitral valve insufficiency. Mild (1+) eccentric tricuspid valve insufficiency. Ordering Physician: Chrissy^Sophia^Da^^ Referring Physician: Lee Mathews MD Performed By: Reema Shepard RCS
[2025-03-21] MEDS: Furosemide 100 MG/10 ML Vial 60 MG IV ×2 (14:26→21:22)
--- NOTE | 2025-03-21 15:20 | CASEMGMT ---
RN CM Face to Face with patient for initial transition planning/care coordination assessment. RN CM introduced self and role at [facility]. Patient lying in bed, alert and oriented, at bedside. Patient willing to participate in assessment and is able to answer all questions appropriately. Care providers, pharmacy, and demographics verified. Strata: 2 PCP: Bisi Specialists: none Preferred Pharmacy: [facility] Insurance: [employer] [facility] Prescription Benefit: yes Living Will/HPOA: none LNOK: Living Arrangements: Patient lives with in a mobile home with 4 steps and railing to enter. Patient is independent at home. Transportation: self, DME/HHC: Patient has raised toilet, nebulizer, pulse ox at home. No previous HHC or SNF. Will monitor for home oxygen, prefers [employer]. Green sheet on chart. Patient wishes to discharge home, denies need for home health at this time. Patient states he has no further needs or concerns at this time. CM to follow for discharge planning needs that may arise. Disposition Plan: Patient to discharge home with family support and follow-up plans in place. Will monitor for home oxygen at discharge. Roxy BERMAN, RN, CM
[2025-03-22] VITALS (8 sets, daily range): BP systolic 105–123; BP diastolic 76–106; PULSE 72–112; RESP 14–20; TEMP 36.5–36.7; O2SAT 91–96; BMI 39.2
[2025-03-22 05:39] LABS: Absolute Neutrophil Count 4.2 X10^3/uL (2.0-7.7); Basophil# 0.02 X10^3/uL; Basophil% 0.3 % (0-1); Eosinophil# 0.07 X10^3/uL; Eosinophils% 0.9 % (0-5); Hematocrit 46.4 % (40-54); Lymphocyte % 35.9 % (19-41); Mean Corp Hgb Conc 34.5 g/dL (32-36); Mean Corpuscular Hgb 32.3 pg (27.0-32.0); Mean Corpuscular Volume 93.7 fL (80-94); Mean Platelet Vol. 11.3 fl (6.2-12.0); Monocyte# 0.72 X10^3/uL; Monocyte% 9.2 % (0-10); NRBC Flagged by Analyzer 0 % (0-5); Neutrophil # 4.17 X10^3/uL (2.7-7.7); Neutrophil % 53.3 % (47-70); POSITIVE COUNT YES; Platelet Count 86 K/mm3 (150-450); RBC Distribution Width CV 15.4 % (11.6-14.6); RBC Distribution Width SD 52.3 fl (35.1-43.9); Red Blood Count 4.95 M/mm3 (4.6-6.2); White Blood Count 7.8 K/mm3 (4.4-11.0)
[2025-03-22] MEDS: Furosemide 100 MG/10 ML Vial 60 MG IV ×2 (05:55→14:42)
[2025-03-22 06:01] LABS: Troponin T High Sensitivity 43 ng/L (<=22)
[2025-03-22 07:00] LABS: Phosphorus 3.6 mg/dL (2.7-4.5)
[2025-03-22] MEDS: Ipratropium 0.5 MG/2.5 ML SOLUTION INHALATION ×2 (07:05→20:30)
[2025-03-22 07:11] LABS: AST(SGOT) 92 U/L (<=37); Alanine Aminotransfer ALT/SGPT 108 U/L (<=46); Albumin, Serum 3.4 g/dL (3.4-4.8); Alkaline Phosphatase 166 U/L (40-129); Anion Gap 12 (5-15); BUN 25 mg/dL (4-19); BUN/Creat Ratio 20.9 RATIO (10-20); Bilirubin, Direct 0.68 mg/dL (0.00-0.30); Carbon Dioxide 30.7 mmol/L (21.0-32.0); Chloride 94 mmol/L (98-108); Creatinine, Serum 1.18 mg/dL (0.70-1.20); EST Glomerular Filtration Rate 66 (>60); Globulin 2.4 g/dL (2.2-4.2); Glucose 95 mg/dL (70-99); Potassium 3.5 mmol/L (3.3-5.1); Protein, Total 5.9 g/dL (5.9-8.4); Sodium Level 137 mmol/L (133-145); Total Bilirubin 1.36 mg/dL (0.00-1.30)
[2025-03-22 07:57] LABS: Pro- Brain NATRIURETIC PEPTIDE 6426 pg/mL (<=900)
[2025-03-22 08:11] LABS: Troponin T High Sens 2 HR 42 ng/L (<=22)
--- NOTE | 2025-03-22 09:12 | PN.HOSP_ITS ---
Reason for Visit Reason for Visit: Diagnoses Nicotine dependence, unspecified, uncomplicated (03/20/25) Unspecified atrial fibrillation (03/20/25) Acute systolic (congestive) heart failure (03/20/25) Dyspnea, unspecified (03/20/25) Personal history of other diseases of the respiratory system (03/20/25) Objective Data Objective Data Vital Signs: Vital Signs Temp Pulse Resp BP Pulse Ox O2 Del Method 98.1 F 110 H 20 H 110/76 92 Room Air 03/22/25 02:30 03/22/25 07:06 03/22/25 07:06 03/22/25 02:30 03/22/25 07:06 03/22/25 08:05 Oxygen Delivery Method Room Air Weight: 117.2 kg Body Mass Index (BMI) 39.2 Intake & Output: Intake and Output for Last 24 Hours 03/20/25 03/21/25 03/22/25 23:59 23:59 23:59 Intake Total 16.50 / 66.50 1476.12 / 1926.12 450 / 450 Output Total 3645 / 4195 900 / 900 Balance 16.50 / -233.50 -2168.88 / -2268.88 -450 / -450 Lab / Micro Data 03/22/25 05:20 03/22/25 05:20 Labs: Laboratory Results - last 24 hr 03/22/25 05:20: WBC 7.8, RBC 4.95, Hgb 16.0, Hct 46.4, MCV 93.7, MCH 32.3 H, MCHC 34.5, RDW Std Deviation 52.3 H, RDW Coeff of Hair 15.4 H, Plt Count 86 L, MPV 11.3, Immature Gran % (Auto) 0.400, Neut % (Auto) 53.3, Lymph % (Auto) 35.9, [place] % (Auto) 9.2, Eos % (Auto) 0.9, Baso % (Auto) 0.3, Absolute Neuts (auto) 4.2, Absolute Lymphs (auto) 2.80, Nucleated RBC % 0, Sodium 137, Potassium 3.5, Chloride 94 L, Carbon Dioxide 30.7, Anion Gap 12, BUN 25 H, Creatinine 1.18, Estim Creat Clear Calc 71.40, Est GFR (MDRD) Non-Af 66, BUN/Creatinine Ratio 20.9 H, Glucose 95, Calcium 8.0, Phosphorus 3.6, Magnesium 2.0, Total Bilirubin 1.36 H, Direct Bilirubin 0.68 H, AST 92 H, ALT 108 H, Alkaline Phosphatase 166 H , Troponin T High Sens 43 H D, NT pro BNP II 6426 H, Total Protein 5.9, Albumin 3.4, Globulin 2.4 03/22/25 07:15: Troponin T Hi Sens 2 Hr 42 H Radiography Diagnostic Testing: Radiology Impression Echocardiogram 03/21/25 05:55 Interpretation Summary The estimated ejection fraction is 10-15 %. Moderate concentric left ventricular hypertrophy. Moderate global right ventricular systolic dysfunction. Moderately dilated right ventricle. The left atrium is mildly enlarged. The right atrium is mildly enlarged. Mild (1+) mitral valve insufficiency. Mild (1+) eccentric tricuspid valve insufficiency. Ordering Physician: Alirio^Da^^ Referring Physician: Lee Mathews MD Performed By: Reema Shepard RCS Physical Exam Narrative GENERAL: cooperative HEENT: Atraumatic; normocephalic EYES; Anicteric, Normal Conjunctiva NECK; supple, normal thyroid, RESPIRATORY: Diminished to auscultation CARDIOVASCULAR: Regular S1 S2, GI: soft, normoactive bowel sounds, : No Renal angle tenderness; EXTREMITIES: Bipedal edema MUSCULOSKELETAL: no muscle wasting NEURO: Awake; no lateralizing signs. SKIN: No Rash PSYCH; Flat affect Assessment & Plan Assessment/Plan (1) Acute systolic CHF (congestive heart failure): (2) Atrial fibrillation with RVR: PLAN: Plan Patient is a 69-year-old gentleman who was sent to the ED by the primary care physician on account of increasing shortness of breath with minimal activity as well as generalized swelling. An assessment of acute congestive heart failure was made admitted to monitored bed for further management 1. Acute congestive heart failure with reduced ejection from ? Admitted to monitored bed manage with strict input and output, daily weight, fluid restriction, low-sodium diet as well as diuretic therapy with furosemide drip. Echo ordered for EF assessment. Consult was placed to cardiology ? Patient has responded to diuretic therapy. Patient weight on admission was 121 currently down to 117 kg 2D echo obtained on 03/21/2025 did show The estimated ejection fraction is 10-15 %. Moderate concentric left ventricular hypertrophy. Moderate global right ventricular systolic dysfunction. Moderately dilated right ventricle. The left atrium is mildly enlarged. The right atrium is mildly enlarged. Mild (1+) mitral valve insufficiency. Mild (1+) eccentric tricuspid valve insufficiency. Consult was placed to cardiology patient seen by Dr. Freitas his notes and recommendations reviewed 2. Paroxysmal atrial fibrillation ? Patient presented with RVR. Patient was started on Cardizem drip admitted to monitored bed. Cardizem drip being titrated to keep heart rate less than 100 3. Acute kidney injury ? Creatinine from 03/03/2025 was 1.06 creatinine on admission was 1.50. This is suspected to be secondary to hypoperfusion from CHF do expect improvement in kidney function with with diuresis. Repeat BMP ordered in a.m. for monitoring ? 03/22/2025; patient creatinine down to 1.18 4. Essential hypertension Patient is on metoprolol did continue lisinopril was held given patient worsening kidney function 5. Class III obesity with BMI of 40.6 ? Complicating care weight loss advised 6. Tobacco dependence ? Counseled on cessation, offered nicotine patch for tobacco cravings 7. COPD ? Currently not in exacerbation aerosol treatment as needed 8. Abnormal LFTs ? Suspected to be secondary to hepatic congestion from CHF repeated LFTs in a.m. for further management ? 03/22/2025; patient LFTs still remain elevated. 9. Elevated troponin Suspected to be secondary to demand ischemia from congestive heart failure. Patient troponins have remained flat. Echo has been ordered for LVEF assessment 10. DVT prophylaxis ? Patient is on systemic anticoagulation with apixaban Charges/Coding Visit Charges Inpatient E&M: 95911 Subs Hosp L2
[2025-03-22] MEDS: APIXABAN 5 MG TABLET PO (09:29)
[2025-03-22] MEDS: Metoprolol Tartrate 50 MG Tablet PO ×2 (09:29→21:45)
[2025-03-22 09:56] LABS: Troponin T High Sens 4 HR 40 ng/L (<=22)
[2025-03-22 12:28] LABS: International Normalized Ratio 1.6; Prothrombin Time (Protime)PT. 19.1 SECONDS (11.7-14.9)
[2025-03-22 12:29] LABS: Partial Thromboplast Time 29.9 Seconds (24.1-36.2)
[2025-03-22] MEDS: 0.9% Saline Lock 10 ML Syringe IV ×2 (14:42→21:46)
--- NOTE | 2025-03-22 16:20 | PCM.PN.CARD ---
Subjective Subjective Patient seen and evaluated today at bedside along with the nursing staff Family were at bedside. Shortness of breath is improving. No chest pain reported Improvement in lower extremity swelling Objective Data Vital Signs: Vital Signs Temp Pulse Resp BP Pulse Ox O2 Del Method 98.1 F 72 18 105/87 H 95 Room Air 03/22/25 14:30 03/22/25 14:30 03/22/25 14:30 03/22/25 14:30 03/22/25 14:30 03/22/25 14:30 Oxygen Delivery Method Room Air Weight: 258 lb 6.108 oz Body Mass Index (BMI) 39.2 Intake & Output: Intake and Output for Last 24 Hours 03/20/25 03/21/25 03/22/25 23:59 23:59 23:59 Intake Total 16.50 / 66.50 1476.12 / 1926.12 690 / 690 Output Total 3645 / 4195 1875 / 1875 Balance 16.50 / -233.50 -2168.88 / -2268.88 -1185 / -1185 Lab / Micro Data 03/22/25 05:20 03/22/25 05:20 Labs: Laboratory Results - last 24 hr 03/22/25 05:20: WBC 7.8, RBC 4.95, Hgb 16.0, Hct 46.4, MCV 93.7, MCH 32.3 H, MCHC 34.5, RDW Std Deviation 52.3 H, RDW Coeff of Hair 15.4 H, Plt Count 86 L, MPV 11.3, Immature Gran % (Auto) 0.400, Neut % (Auto) 53.3, Lymph % (Auto) 35.9, [place] % (Auto) 9.2, Eos % (Auto) 0.9, Baso % (Auto) 0.3, Absolute Neuts (auto) 4.2, Absolute Lymphs (auto) 2.80, Nucleated RBC % 0, Sodium 137, Potassium 3.5, Chloride 94 L, Carbon Dioxide 30.7, Anion Gap 12, BUN 25 H, Creatinine 1.18, Estim Creat Clear Calc 71.40, Est GFR (MDRD) Non-Af 66, BUN/Creatinine Ratio 20.9 H, Glucose 95, Calcium 8.0, Phosphorus 3.6, Magnesium 2.0, Total Bilirubin 1.36 H, Direct Bilirubin 0.68 H, AST 92 H, ALT 108 H, Alkaline Phosphatase 166 H, Troponin T High Sens 43 H D, NT pro BNP II 6426 H, Total Protein 5.9, Albumin 3.4, Globulin 2.4 03/22/25 07:15: Troponin T Hi Sens 2 Hr 42 H 03/22/25 09:02: Troponin T Hi Sens 4Hr 40 H 03/22/25 11:53: PT 19.1 H, INR 1.6, APTT 29.9 Cardiology Labs/Tests 03/22/25 05:20: WBC 7.8, RBC 4.95, Hgb 16.0, Hct 46.4, MCV 93.7, MCH 32.3 H, MCHC 34.5, Plt Count 86 L, MPV 11.3, Immature Gran % (Auto) 0.400, Neut % (Auto) 53.3, Lymph % (Auto) 35.9, [place] % (Auto) 9.2, Eos % (Auto) 0.9, Baso % (Auto) 0.3, Absolute Neuts (auto) 4.2, Nucleated RBC % 0, Sodium 137, Potassium 3.5, Chloride 94 L, Carbon Dioxide 30.7, Anion Gap 12, BUN 25 H, Creatinine 1.18, Est GFR (MDRD) Non-Af 66, BUN/Creatinine Ratio 20.9 H, Glucose 95, Calcium 8.0, Phosphorus 3.6, Magnesium 2.0, Total Bilirubin 1.36 H, Direct Bilirubin 0.68 H 03/22/25 11:53: PT 19.1 H, INR 1.6, APTT 29.9 Rhythm: EKG: ECHO: Stress Test: Cardiac Cath: PCI: CT Surgery: Holter monitor: EPS: PPM: CXR: Chest CT Scan: Physical Exam Cardio Cardio Narrative: Review of director cardiac showed episodes of nonsustained V. tach With frequent PVCs A-fib with better controlled ventricular rate Cardiac exam S1-S2 regular Chest exam mildly diminished air entry bilateral with bilateral inspiratory rales Examination lower extremities +2 lower extremity edema Assessment & Plan Assessment/Plan (1) History of COPD: (2) Atrial fibrillation with RVR: (3) Acute systolic CHF (congestive heart failure): PLAN: 69-year-old patient admitted with symptoms of shortness of breath with palpitation Moderate concentric left ventricular hypertrophy Moderate global RV systolic dysfunction Weight gain with bilateral lower extremity swelling With a diagnosis of acute systolic heart failure HFrEF With a significantly abnormal echocardiogram Showing EF in the range of 10-15% moderate concentric left ventricular hypertrophy Patient started on treatment with lisinopril beta-shaniqua metoprolol. Apixaban is on hold and will start on heparin IV. In addition to Lasix and CHF protocol with restriction of fluid intake. Cardiac care plan; Based on his clinical presentation and severe LV systolic dysfunction Patient scheduled for cardiac catheterization on Monday. To assess for ischemic cardiomyopathy and assess coronary artery atherosclerosis Will continue to monitor and follow-up clinically. Patient currently on. Cardiac care plan will include monitoring electrolytes adjustment of guideline directed medical therapy Further recommendation will be based on the cardiac catheterization and patient will require LifeVest prior to discharge Krissy Freitas MD,FACC,[facility] packing room worker
[2025-03-22] MEDS: DiphenhydrAMINE 25 MG Capsule PO (21:45)
[2025-03-22] MEDS: HEPARIN/D5w 25,000 UNITS 25,000 UNITS/250 ML IV.SOLN. 16 UNITS CONT INF (21:50)
[2025-03-23] VITALS (8 sets, daily range): BP systolic 105–132; BP diastolic 81–99; PULSE 80–125; RESP 16–18; TEMP 36.5–36.8; O2SAT 92–96; BMI 38.9
[2025-03-23 03:37] LABS: Absolute Lymphocyte Count 1.81 X10^3/uL (0.83-4.51); Absolute Neutrophil Count 3.7 X10^3/uL (2.0-7.7); Basophil# 0.02 X10^3/uL; Basophil% 0.3 % (0-1); Eosinophil# 0.08 X10^3/uL; Eosinophils% 1.3 % (0-5); Hematocrit 44.9 % (40-54); Lymphocyte # 1.81 X10^3/ul (0.83-4.51); Lymphocyte % 28.8 % (19-41); Mean Corp Hgb Conc 33.4 g/dL (32-36); Mean Corpuscular Hgb 31.6 pg (27.0-32.0); Mean Corpuscular Volume 94.7 fL (80-94); Mean Platelet Vol. 10.6 fl (6.2-12.0); Monocyte# 0.66 X10^3/uL; Monocyte% 10.5 % (0-10); NRBC Flagged by Analyzer 0 % (0-5); Neutrophil # 3.68 X10^3/uL (2.7-7.7); Neutrophil % 58.6 % (47-70); POSITIVE COUNT YES; Platelet Count 82 K/mm3 (150-450); RBC Distribution Width CV 15.3 % (11.6-14.6); RBC Distribution Width SD 52.9 fl (35.1-43.9); Red Blood Count 4.74 M/mm3 (4.6-6.2); White Blood Count 6.3 K/mm3 (4.4-11.0)
[2025-03-23 03:57] LABS: Partial Thromboplast Time 212.3 Seconds (24.1-36.2)
[2025-03-23 04:18] LABS: AST(SGOT) 69 U/L (<=37); Alanine Aminotransfer ALT/SGPT 86 U/L (<=46); Albumin, Serum 3.4 g/dL (3.4-4.8); Alkaline Phosphatase 147 U/L (40-129); Anion Gap 9 (5-15); BUN 25 mg/dL (4-19); BUN/Creat Ratio 21.2 RATIO (10-20); Bilirubin, Direct 0.57 mg/dL (0.00-0.30); Carbon Dioxide 35.2 mmol/L (21.0-32.0); Chloride 95 mmol/L (98-108); Creatinine, Serum 1.17 mg/dL (0.70-1.20); EST Glomerular Filtration Rate 67 (>60); Estimated Creatinine Clearance 72.01 ml/min (50-250); Globulin 2.1 g/dL (2.2-4.2); Glucose 116 mg/dL (70-99); Protein, Total 5.5 g/dL (5.9-8.4); Sodium Level 140 mmol/L (133-145); Total Bilirubin 1.02 mg/dL (0.00-1.30)
[2025-03-23] MEDS: Ipratropium 0.5 MG/2.5 ML SOLUTION INHALATION ×2 (06:33→13:09)
--- NOTE | 2025-03-23 08:14 | PN.HOSP_ITS ---
Reason for Visit Reason for Visit: Diagnoses Nicotine dependence, unspecified, uncomplicated (03/20/25) Unspecified atrial fibrillation (03/20/25) Acute systolic (congestive) heart failure (03/20/25) Dyspnea, unspecified (03/20/25) Personal history of other diseases of the respiratory system (03/20/25) Subjective Subjective Case was discussed with cardiology on 03/22/2025 given patient's significant cardiomyopathy plan is for patient to undergo further evaluation with left heart catheterization. Patient is on apixaban held started on heparin Objective Data Objective Data Vital Signs: Vital Signs Temp Pulse Resp BP Pulse Ox O2 Del Method 97.7 F L 85 16 114/81 H 92 Room Air 03/23/25 04:35 03/23/25 06:35 03/23/25 06:35 03/23/25 04:35 03/23/25 06:35 03/23/25 06:35 Oxygen Delivery Method Room Air Weight: 116 kg Body Mass Index (BMI) 38.9 Intake & Output: Intake and Output for Last 24 Hours 03/21/25 03/22/25 03/23/25 23:59 23:59 23:59 Intake Total 1476.12 / 1926.12 1410 / 1410 338.67 / 338.67 Output Total 3645 / 4195 2500 / 2500 125 / 125 Balance -2168.88 / -2268.88 -1090 / -1090 213.67 / 213.67 Lab / Micro Data 03/23/25 03:26 03/23/25 03:26 Labs: Laboratory Results - last 24 hr 03/22/25 09:02: Troponin T Hi Sens 4Hr 40 H 03/22/25 11:53: PT 19.1 H, INR 1.6, APTT 29.9 03/23/25 03:26: WBC 6.3, RBC 4.74, Hgb 15.0, Hct 44.9, MCV 94.7 H, MCH 31.6, MCHC 33.4, RDW Std Deviation 52.9 H, RDW Coeff of Hair 15.3 H, Plt Count 82 L, MPV 10.6, Immature Gran % (Auto) 0.500, Neut % (Auto) 58.6, Lymph % (Auto) 28.8, [place] % (Auto) 10.5 H, Eos % (Auto) 1.3, Baso % (Auto) 0.3, Absolute Neuts (auto) 3.7, Absolute Lymphs (auto) 1.81, Nucleated RBC % 0, APTT 212.3 H*, Sodium 140, Potassium 3.0 L, Chloride 95 L, Carbon Dioxide 35.2 H, Anion Gap 9, BUN 25 H, Creatinine 1.17, Estim Creat Clear Calc 72.01, Est GFR (MDRD) Non-Af 67, B UN/Creatinine Ratio 21.2 H, Glucose 116 H, Calcium 8.0, Magnesium 2.0, Total Bilirubin 1.02, Direct Bilirubin 0.57 H, AST 69 H, ALT 86 H, Alkaline Phosphatase 147 H, Total Protein 5.5 L, Albumin 3.4, Globulin 2.1 L Physical Exam Narrative GENERAL: cooperative HEENT: Atraumatic; normocephalic EYES; Anicteric, Normal Conjunctiva NECK; supple, normal thyroid, RESPIRATORY: Diminished to auscultation CARDIOVASCULAR: Regular S1 S2, GI: soft, normoactive bowel sounds, : No Renal angle tenderness; EXTREMITIES: Bipedal edema MUSCULOSKELETAL: no muscle wasting NEURO: Awake; no lateralizing signs. SKIN: No Rash PSYCH; Flat affect Assessment & Plan Assessment/Plan (1) Acute systolic CHF (congestive heart failure): (2) Atrial fibrillation with RVR: PLAN: Plan Patient is a 69-year-old gentleman who was sent to the ED by the primary care physician on account of increasing shortness of breath with minimal activity as well as generalized swelling. An assessment of acute congestive heart failure was made admitted to monitored bed for further management 1. Acute congestive heart failure with reduced ejection from ? Admitted to monitored bed manage with strict input and output, daily weight, fluid restriction, low-sodium diet as well as diuretic therapy with furosemide drip. Echo ordered for EF assessment. Consult was placed to cardiology ? Patient has responded to diuretic therapy. Patient weight on admission was 121 currently down to 117 kg 2D echo obtained on 03/21/2025 did show The estimated ejection fraction is 10-15 %. Moderate concentric left ventricular hypertrophy. Moderate global right ventricular systolic dysfunction. Moderately dilated right ventricle. The left atrium is mildly enlarged. The right atrium is mildly enlarged. Mild (1+) mitral valve insufficiency. Mild (1+) eccentric tricuspid valve insufficiency. Consult was placed to cardiology patient seen by Dr. Freitas his notes and recommendations reviewed ? 03/23/2025; Case was discussed with cardiology given patient's significant cardiomyopathy plan is for patient to undergo left heart catheterization to rule out coronary artery disease. Did decrease patient furosemide dose after discussion with cardiology. 2. Paroxysmal atrial fibrillation ? Patient presented with RVR. Patient was started on Cardizem drip admitted to monitored bed. Cardizem drip being titrated to keep heart rate less than 100 ? 03/23/2025; patient is on apixaban held subsequently started on heparin 3. Acute kidney injury ? Creatinine from 03/03/2025 was 1.06 creatinine on admission was 1.50. This is suspected to be secondary to hypoperfusion from CHF do expect improvement in kidney function with with diuresis. Repeat BMP ordered in a.m. for monitoring ? 03/22/2025; patient creatinine down to 1.18 ? 03/23/2025; creatinine stable at 1.17 4. Runs of nonsustained VT ? Attributed to patient severe cardiomyopathy. Plan is to continue with telemetry monitoring 5. Hypokalemia ? Corrected for protocol. Also recheck magnesium as well as phosphorus levels 6. Essential hypertension Patient is on metoprolol did continue lisinopril was held given patient worsening kidney function 7. COPD ? Currently not in exacerbation aerosol treatment as needed 8. Abnormal LFTs ? Suspected to be secondary to hepatic congestion from CHF repeated LFTs in a.m. for further management ? 03/22/2025; patient LFTs still remain elevated. 9. Elevated troponin Suspected to be secondary to demand ischemia from congestive heart failure. Patient troponins have remained flat. Echo has been ordered for LVEF assessment 10. Class III obesity with BMI of 40.6 ? Complicating care weight loss advised 11. Tobacco dependence ? Counseled on cessation, offered nicotine patch for tobacco cravings 12. DVT prophylaxis ? Patient is on systemic anticoagulation Charges/Coding Visit Charges Inpatient E&M: 26823 Subs Hosp L3
[2025-03-23 09:31] LABS: Phosphorus 3.7 mg/dL (2.7-4.5)
[2025-03-23] MEDS: Potassium Chloride Oral Tablet 20 MEQ 40 MEQ PO (10:02)
[2025-03-23] MEDS: Potassium Chloride Oral Tablet 20 MEQ PO ×2 (10:02→16:31)
[2025-03-23] MEDS: Furosemide 40 MG/4 ML Vial IV ×2 (10:03→17:40)
[2025-03-23] MEDS: 0.9% Saline Lock 10 ML Syringe IV ×2 (10:05→17:40)
[2025-03-23 12:24] LABS: Partial Thromboplast Time 150.3 Seconds (24.1-36.2)
--- NOTE | 2025-03-23 15:14 | PN.CARD_ITS ---
Subjective Subjective Family at bedside at time of evaluation Comfortable lying in bed Objective Data Vital Signs: Vital Signs Temp Pulse Resp BP Pulse Ox O2 Del Method 97.8 F 80 18 105/91 H 96 Room Air 03/23/25 10:00 03/23/25 13:10 03/23/25 13:10 03/23/25 10:12 03/23/25 10:00 03/23/25 14:05 Oxygen Delivery Method Room Air Weight: 255 lb 11.779 oz Body Mass Index (BMI) 38.9 Intake & Output: Intake and Output for Last 24 Hours 03/21/25 03/22/25 03/23/25 23:59 23:59 23:59 Intake Total 1476.12 / 1926.12 1410 / 1410 662.52 / 662.52 Output Total 3645 / 4195 2500 / 2500 925 / 925 Balance -2168.88 / -2268.88 -1090 / -1090 -262.48 / -262.48 Lab / Micro Data 03/23/25 03:26 03/23/25 03:26 Labs: Laboratory Results - last 24 hr 03/23/25 03:26: WBC 6.3, RBC 4.74, Hgb 15.0, Hct 44.9, MCV 94.7 H, MCH 31.6, MCHC 33.4, RDW Std Deviation 52.9 H, RDW Coeff of Hair 15.3 H, Plt Count 82 L, MPV 10.6, Immature Gran % (Auto) 0.500, Neut % (Auto) 58.6, Lymph % (Auto) 28.8, [place] % (Auto) 10.5 H, Eos % (Auto) 1.3, Baso % (Auto) 0.3, Absolute Neuts (auto) 3.7, Absolute Lymphs (auto) 1.81, Nucleated RBC % 0, APTT 212.3 H*, Sodium 140, Potassium 3.0 L, Chloride 95 L, Carbon Dioxide 35.2 H, Anion Gap 9, BUN 25 H, Creatinine 1.17, Estim Creat Clear Calc 72.01, Est GFR (MDRD) Non-Af 67, B UN/Creatinine Ratio 21.2 H, Glucose 116 H, Calcium 8.0, Phosphorus 3.7, Magnesium 2.0 03/23/25 03:26: Magnesium 2.0, Total Bilirubin 1.02, Direct Bilirubin 0.57 H, A ST 69 H, ALT 86 H, Alkaline Phosphatase 147 H, Total Protein 5.5 L, Albumin 3.4, Globulin 2.1 L 03/23/25 11:50: APTT 150.3 H* Cardiology Labs/Tests 03/23/25 03:26: WBC 6.3, RBC 4.74, Hgb 15.0, Hct 44.9, MCV 94.7 H, MCH 31.6, MCHC 33.4, Plt Count 82 L, MPV 10.6, Immature Gran % (Auto) 0.500, Neut % (Auto) 58.6, Lymph % (Auto) 28.8, [place] % (Auto) 10.5 H, Eos % (Auto) 1.3, Baso % (Auto) 0.3, Absolute Neuts (auto) 3.7, Nucleated RBC % 0, APTT 212.3 H*, Sodium 140, P otassium 3.0 L, Chloride 95 L, Carbon Dioxide 35.2 H, Anion Gap 9, BUN 25 H, Creatinine 1.17, Est GFR (MDRD) Non-Af 67, BUN/Creatinine Ratio 21.2 H, Glucose 116 H, Calcium 8.0, Phosphorus 3.7, Magnesium 2.0 03/23/25 03:26: Magnesium 2.0, Total Bilirubin 1.02, Direct Bilirubin 0.57 H 03/23/25 11:50: APTT 150.3 H* Rhythm: EKG: ECHO: Stress Test: Cardiac Cath: PCI: CT Surgery: Holter monitor: EPS: PPM: CXR: Chest CT Scan: Physical Exam Cardio Cardio Narrative: Review of cardiac telemetry showed A-fib with better controlled ventricular rate Cardiac exam S1-S2 regular Chest exam diminished air entry bilateral Examination lower extremity +2 lower extremity edema. Assessment & Plan Assessment/Plan (1) Dyspnea: (2) History of COPD: (3) Atrial fibrillation with RVR: (4) Acute systolic CHF (congestive heart failure): PLAN: Plan 69-year-old patient presented with symptoms shortness of breath palpitation weight gain, lower extremity swelling. Has acute systolic heart failure With echocardiogram showed EF in the range of 10-15% with severe global LV hypokinesia. Patient also has A-fib with RVR better controlled on the current treatment. On review of the environmental monitoring specialist patient had nonsustained V. tach DAVID with improvement of renal function creatinine today is around 1.17. Had history of COPD. And abnormal LFTs secondary to acute systolic heart failure and congestive heart failure. Discussed in detail the plan and evaluated further with cardiac catheterization. Also patient will require review of his medication/guideline directed medical therapy LifeVest prior to discharge Further plan will be based on result of cardiac catheterization he was set up for tomorrow. Discussed cardiac care plan in detail with the patient family as well as the nursing staff Krissy Freitas MD,FACC,[facility] [employer]
[2025-03-23] MEDS: Metoprolol Tartrate 50 MG Tablet PO ×2 (16:30→21:56)
[2025-03-23 20:51] LABS: Partial Thromboplast Time 83.8 Seconds (24.1-36.2)
[2025-03-23] MEDS: HEPARIN/D5w 25,000 UNITS 25,000 UNITS/250 ML IV.SOLN. 9 UNITS CONT INF (21:57)
[2025-03-23] MEDS: DiphenhydrAMINE 25 MG Capsule PO (21:57)
[2025-03-24] VITALS (14 sets, daily range): BP systolic 94–120; BP diastolic 74–98; PULSE 53–114; RESP 14–18; TEMP 36.3–36.8; O2SAT 93–96; BMI 38.9
[2025-03-24] MEDS: hydrOXYzine PAM 25 MG Capsule PO (00:20)
[2025-03-24 03:11] LABS: Absolute Lymphocyte Count 2.32 X10^3/uL (0.83-4.51); Absolute Neutrophil Count 4.2 X10^3/uL (2.0-7.7); Basophil# 0.03 X10^3/uL; Basophil% 0.4 % (0-1); Eosinophil# 0.05 X10^3/uL; Eosinophils% 0.7 % (0-5); Hematocrit 45.4 % (40-54); Hemoglobin 15.3 g/dL (13.0-16.5); Lymphocyte # 2.32 X10^3/ul (0.83-4.51); Lymphocyte % 31.6 % (19-41); Mean Corp Hgb Conc 33.7 g/dL (32-36); Mean Corpuscular Hgb 31.6 pg (27.0-32.0); Mean Corpuscular Volume 93.8 fL (80-94); Monocyte# 0.75 X10^3/uL; Monocyte% 10.2 % (0-10); NRBC Flagged by Analyzer 0 % (0-5); Neutrophil # 4.17 X10^3/uL (2.7-7.7); Neutrophil % 56.7 % (47-70); POSITIVE COUNT YES; Platelet Count 83 K/mm3 (150-450); RBC Distribution Width CV 15.5 % (11.6-14.6); RBC Distribution Width SD 52.7 fl (35.1-43.9); Red Blood Count 4.84 M/mm3 (4.6-6.2); White Blood Count 7.4 K/mm3 (4.4-11.0)
[2025-03-24 03:23] LABS: Partial Thromboplast Time 87.8 Seconds (24.1-36.2)
[2025-03-24 03:37] LABS: AST(SGOT) 60 U/L (<=37); Alanine Aminotransfer ALT/SGPT 80 U/L (<=46); Albumin, Serum 3.4 g/dL (3.4-4.8); Alkaline Phosphatase 152 U/L (40-129); Anion Gap 12 (5-15); BUN 26 mg/dL (4-19); BUN/Creat Ratio 20.5 RATIO (10-20); Calcium,Total 8.2 mg/dL (7.6-11.0); Carbon Dioxide 29.1 mmol/L (21.0-32.0); Chloride 97 mmol/L (98-108); Creatinine, Serum 1.26 mg/dL (0.70-1.20); EST Glomerular Filtration Rate 61 (>60); Estimated Creatinine Clearance 66.51 ml/min (50-250); Globulin 2.3 g/dL (2.2-4.2); Glucose 106 mg/dL (70-99); Magnesium 2.1 mg/dL (1.5-2.2); Potassium 3.7 mmol/L (3.3-5.1); Protein, Total 5.7 g/dL (5.9-8.4); Sodium Level 138 mmol/L (133-145)
[2025-03-24] MEDS: Metoprolol Tartrate 50 MG Tablet PO (05:21)
[2025-03-24 05:23] LABS: Phosphorus 4.4 mg/dL (2.7-4.5)
[2025-03-24] MEDS: 0.9% Normal Saline (1000mL) 1,000 ML 15 ML IV (08:01)
[2025-03-24] MEDS: 0.9% Saline Lock 10 ML Syringe IV ×3 (08:02→17:31)
--- NOTE | 2025-03-24 08:44 | CASEMGMT ---
Insurance review for hospitals In-network with [facility] insurance if transfer is recommended is as follows: [facility], [facility], [facility], [facility], [facility], [facility], , [facility]. Tita Rey, Discharge Planning Asst.
[2025-03-24 10:14] LABS: Partial Thromboplast Time 34.6 Seconds (24.1-36.2)
--- NOTE | 2025-03-24 10:51 | PN.CARD_ITS ---
Subjective Subjective Patient seen and evaluated, and the patient underwent cardiac catheterization today Objective Data Vital Signs: Vital Signs Temp Pulse Resp BP Pulse Ox O2 Del Method 97.4 F L 92 18 120/83 H 95 Room Air 03/24/25 09:41 03/24/25 09:41 03/24/25 09:41 03/24/25 09:41 03/24/25 09:41 03/24/25 09:41 Oxygen Delivery Method Room Air Weight: 255 lb 11.779 oz Body Mass Index (BMI) 38.9 Intake & Output: Intake and Output for Last 24 Hours 03/22/25 03/23/25 03/24/25 23:59 23:59 23:59 Intake Total 1410 / 1410 970.00 / 970.00 250.00 / 250.00 Output Total 2500 / 2500 1275 / 1475 600 / 600 Balance -1090 / -1090 -305.00 / -505.00 -350.00 / -350.00 Lab / Micro Data 03/24/25 02:59 03/24/25 02:59 Labs: Laboratory Results - last 24 hr 03/23/25 11:50: APTT 150.3 H* 03/23/25 20:31: APTT 83.8 H 03/24/25 02:59: WBC 7.4, RBC 4.84, Hgb 15.3, Hct 45.4, MCV 93.8, MCH 31.6, MCHC 33.7, RDW Std Deviation 52.7 H, RDW Coeff of Hair 15.5 H, Plt Count 83 L, MPV 11.0, Immature Gran % (Auto) 0.400, Neut % (Auto) 56.7, Lymph % (Auto) 31.6, M brian % (Auto) 10.2 H, Eos % (Auto) 0.7, Baso % (Auto) 0.4, Absolute Neuts (auto) 4.2, Absolute Lymphs (auto) 2.32, Nucleated RBC % 0, APTT 87.8 H, Sodium 138, Potassium 3.7, Chloride 97 L, Carbon Dioxide 29.1, Anion Gap 12, BUN 26 H, C reatinine 1.26 H, Estim Creat Clear Calc 66.51, Est GFR (MDRD) Non-Af 61, B UN/Creatinine Ratio 20.5 H, Glucose 106 H, Calcium 8.2, Phosphorus 4.4, Magnesium 2.1, Total Bilirubin 1.30, Direct Bilirubin 0.70 H, AST 60 H, ALT 80 H , Alkaline Phosphatase 152 H, Total Protein 5.7 L, Albumin 3.4, Globulin 2.3 03/24/25 09:35: APTT 34.6 Cardiology Labs/Tests 03/23/25 11:50: APTT 150.3 H* 03/23/25 20:31: APTT 83.8 H 03/24/25 02:59: WBC 7.4, RBC 4.84, Hgb 15.3, Hct 45.4, MCV 93.8, MCH 31.6, MCHC 33.7, Plt Count 83 L, MPV 11.0, Immature Gran % (Auto) 0.400, Neut % (Auto) 56.7, Lymph % (Auto) 31.6, [place] % (Auto) 10.2 H, Eos % (Auto) 0.7, Baso % (Auto) 0.4, Absolute Neuts (auto) 4.2, Nucleated RBC % 0, APTT 87.8 H, Sodium 138, Potassium 3.7, Chloride 97 L, Carbon Dioxide 29.1, Anion Gap 12, BUN 26 H, C reatinine 1.26 H, Est GFR (MDRD) Non-Af 61, BUN/Creatinine Ratio 20.5 H, Glucose 106 H, Calcium 8.2, Phosphorus 4.4, Magnesium 2.1, Total Bilirubin 1.30, Direct Bilirubin 0.70 H 03/24/25 09:35: APTT 34.6 Rhythm: EKG: ECHO: Stress Test: Cardiac Cath: PCI: CT Surgery: Holter monitor: EPS: PPM: CXR: Chest CT Scan: Physical Exam Const alert, oriented x3 and no apparent distress General Appearance: cooperative HEENT hearing grossly normal bilaterally Head and Scalp: atraumatic Eyes EOMs intact bilaterally Neck General: normal visual inspection Chest inspection of chest normal and palpation of chest normal Resp normal respiratory effort Auscultation: clear to auscultation bilaterally Cardio regular rhythm, S1 normal heart sound and S2 normal heart sound Jugular Venous Distention: JVD Rhythm: abnormal rhythm irregularly irregular GI normal to inspection, nondistended, normoactive bowel sounds Extremity Extremity Narrative: Bilateral scaliness all over skin General Extremity: edema bilateral Peripheral Pulses: Yes pulses 2+ throughout and femoral pulses present Skin Skin Narrative: ichthyosis present Neuro oriented x3 and CN's II-XII intact bilaterally Psych Appearance: grossly normal and appropriate Assessment & Plan Assessment/Plan (1) Cardiac LV ejection fraction 10-20%: PLAN: Patient has a left ventricular ejection fraction of 10% plus minus. The etiology of above is nonischemic as the cardiac catheterization today did not demonstrate any obstructive coronary disease. Will recommend * Continue Lasix intravenously and then switch to p.o. will add spironolactone * Start SGLT2 inhibitor * Continue beta-shaniqua and in light of the atrial fibrillation will increase metoprolol to 50 mg twice a day. After rate is controlled can switch to carvedilol. * Add lisinopril 2.5 mg twice a day and if patient tolerates will switch to Entresto (2) Atrial fibrillation with RVR: PLAN: Patient has atrial fibrillation with rapid ventricular response rate: And will do suggest that we increase metoprolol to 75 mg twice a day Will add 1 dose of digoxin Start anticoagulation with Eliquis this evening. (3) Acute systolic CHF (congestive heart failure): PLAN: He does have acute on chronic congestive heart failure and the plan to be to continue current medical therapy as noted above. Will continue guideline directed medical therapy. After the patient is discharged from the hospital she will followed up with our office within a week.
--- NOTE | 2025-03-24 11:40 | CL.D_ITS ---
Patient Name: KELVIN HERNANDEZ Study Date: 03/24/2025 Performing: Carlton Keyes MD Ht: 68 inches 172.72 cm : 1955 Wt: 256.1 lbs 116 kg Age: 69 Gender: male BSA: 2.27 PROCEDURE(S) PERFORMED DC02-([id number])C/COR CLINICAL PROFILE AND INDICATIONS Indications: Cardiomyopathy Heart Failure: NYHA Class: 3, Newly Diagnosed: Yes, Heart Failure Type: Systolic Stress/Imaging Stress/Image Study Performed: No CAD Presentations: Other: CHF CONCLUSIONS Normal coronary arteries Cardiomyopathy: Dilated RECOMMENDATIONS Medical therapy DESCRIPTION OF PROCEDURE The patient arrived to the procedure lab. The risks and benefits of the procedure as well as a full description of our services here and current unavailability of surgical backup were fully explained to the patient and/or their significant other prior to the catheterization. The Timeout was completed, verifying the correct patient and procedure. The patient's procedural site was prepped and draped in the usual fashion. Local anesthetic was given subcutaneously to right radial region with Lidocaine 2%. Using a modified Seldinger technique, arterial access was obtained via the right radial artery, a 6Fr sheath was inserted. Left Coronary Artery selective angiography was performed in multiple views using a 5 Fr. 4.0 Henry catheter. Right Coronary Artery selective angiography was then performed in multiple views using a 5 Fr. 4.0 Henry catheter. LV to AO pullback pressures were then recorded.The arterial sheath was pulled and a TR Band was applied for hemostasis CORONARY ANGIOGRAPHY DOMINANCE: Right Dominant LEFT HEART ASSESSMENT Left Ventricular Ejection Fraction: by Echo 15 % Global Hypokinesis - Severe Depressed Left Ventricular systolic function LEFT MAIN: Angiographically normal LEFT ANTERIOR DESCENDING ARTERY: Angiographically normal CIRCUMFLEX ARTERY: Angiographically normal RIGHT CORONARY ARTERY: Angiographically normal COMPLICATIONS No Complications PROCEDURE MEDICATIONS Versed 1 mg IV Fentanyl 50 mcg IV Oxygen: 2 L/min via nasal cannula Baby Aspirin (81mg) 4 Tabs PO @ 03/24/2025 10:12:23 Heparin given IA 03/24/2025 10:22:07 SUMMARY OF HEMODYNAMIC DATA Time AIR REST ECG 10:08:18 AO 93/76 (84) SA 10:32:07 LV 102/22, 24 10:42:15 LV 99/23, 32 10:42:22 LVp 101/23, 30 10:42:31 AO 101/73 (89) 10:42:36 Signed By Carlton Keyes MD On 03/24/2025 14:51:21 Signed By Carlton Keyes MD On 03/24/2025 11:39:23 Carlton Keyes MD
[2025-03-24] MEDS: Digoxin 250 MCG/ML Ampul IV (11:41)
--- NOTE | 2025-03-24 14:24 | PN.HOSP_ITS ---
Reason for Visit Reason for Visit: Diagnoses Nicotine dependence, unspecified, uncomplicated (03/20/25) Unspecified atrial fibrillation (03/20/25) Acute systolic (congestive) heart failure (03/20/25) Dyspnea, unspecified (03/20/25) Abnormal findings on diagnostic imaging of heart and coronary circulation (03/20/25) Personal history of other diseases of the respiratory system (03/20/25) Objective Data Objective Data Vital Signs: Vital Signs Temp Pulse Resp BP Pulse Ox O2 Del Method 97.8 F 101 H 16 110/76 94 Room Air 03/24/25 13:56 03/24/25 13:56 03/24/25 13:56 03/24/25 13:56 03/24/25 13:56 03/24/25 13:56 Oxygen Delivery Method Room Air Weight: 255 lb 11.779 oz Body Mass Index (BMI) 38.9 Intake & Output: Intake and Output for Last 24 Hours 03/22/25 03/23/25 03/24/25 23:59 23:59 23:59 Intake Total 1410 / 1410 970.00 / 970.00 490.00 / 490.00 Output Total 2500 / 2500 1275 / 1475 600 / 600 Balance -1090 / -1090 -305.00 / -505.00 -110.00 / -110.00 Lab / Micro Data 03/24/25 02:59 03/24/25 02:59 Labs: Laboratory Results - last 24 hr 03/23/25 20:31: APTT 83.8 H 03/24/25 02:59: WBC 7.4, RBC 4.84, Hgb 15.3, Hct 45.4, MCV 93.8, MCH 31.6, MCHC 33.7, RDW Std Deviation 52.7 H, RDW Coeff of Hair 15.5 H, Plt Count 83 L, MPV 11.0, Immature Gran % (Auto) 0.400, Neut % (Auto) 56.7, Lymph % (Auto) 31.6, M brian % (Auto) 10.2 H, Eos % (Auto) 0.7, Baso % (Auto) 0.4, Absolute Neuts (auto) 4.2, Absolute Lymphs (auto) 2.32, Nucleated RBC % 0, APTT 87.8 H, Sodium 138, Potassium 3.7, Chloride 97 L, Carbon Dioxide 29.1, Anion Gap 12, BUN 26 H, C reatinine 1.26 H, Estim Creat Clear Calc 66.51, Est GFR (MDRD) Non-Af 61, B UN/Creatinine Ratio 20.5 H, Glucose 106 H, Calcium 8.2, Phosphorus 4.4, Magnesium 2.1, Total Bilirubin 1.30, Direct Bilirubin 0.70 H, AST 60 H, ALT 80 H , Alkaline Phosphatase 152 H, Total Protein 5.7 L, Albumin 3.4, Globulin 2.3 03/24/25 09:35: APTT 34.6 Physical Exam Narrative Seen and examined. At present, patient denies chest pain or shortness of breath. Had cardiac cath in the morning and reported normal coronary arteries. Patient has chronic dermatitis since young age. Physical exam General: Alert, Oriented x3, Cooperative. BMI 38.9 kg/m? HEENT: Atraumatic, PERRLA, EOMI, Normocephalic. Oral: No Gingival or Mucosal Lesions/ Ulcerations Neck: Supple, No JVD, Negative Carotid Bruits Chest wall/Lungs: Air entry diminished in bilateral lung bases. No crepitation/rhonchi Cardiovascular: A-fib, Normal S1,S2, systolic murmur LLSB and cardiac apex Abdomen: Bowel Sounds Present, Soft, Non Tender, Non-Distended : No dysuria. No renal angle tenderness. No suprapubic tenderness. Extremities: 2+ bilateral pitting edema, Capillary Refill Less than 3 Seconds Skin: Chronic dermatitis with dry, rough, thick skin all over the body. Musculoskeletal: No Tenderness to Palpation of Joints or Extremities. ROM intact. Neurological: Cranial nerves II-XII grossly intact, DTR 2+/4. No acute focal neurological deficit. Psych/Mental Status: Normal Affect, Appropriate. Assessment & Plan Assessment/Plan (1) Acute systolic CHF (congestive heart failure): (2) Atrial fibrillation with RVR: PLAN: Plan Patient is a 69-year-old gentleman who was sent to the ED by the primary care physician on account of increasing shortness of breath with minimal activity as well as generalized swelling. An assessment of acute congestive heart failure was made admitted to monitored bed for further management 1. Acute congestive heart failure with reduced ejection from ? Admitted to monitored bed manage with strict input and output, daily weight, fluid restriction, low-sodium diet as well as diuretic therapy with furosemide drip. Echo ordered for EF assessment. Consult was placed to cardiology ? Patient has responded to diuretic therapy. Patient weight on admission was 121 currently down to 117 kg 2D echo obtained on 03/21/2025 did show The estimated ejection fraction is 10-15 %. Moderate concentric left ventricular hypertrophy. Moderate global right ventricular systolic dysfunction. Moderately dilated right ventricle. The left atrium is mildly enlarged. The right atrium is mildly enlarged. Mild (1+) mitral valve insufficiency. Mild (1+) eccentric tricuspid valve insufficiency. Consult was placed to cardiology patient seen by Dr. Freitas his notes and recommendations reviewed 03/24: Patient underwent cardiac cath and reported normal coronaries. Dilated cardiomyopathy. Seen by light rail train operator recommend continue IV furosemide and then switch to oral tomorrow. Spironolactone added. SGLT2 started. Continue beta- shaniqua, metoprolol increased to 50 mg twice daily. After rate is controlled can switch to carvedilol. Lisinopril 2.5 mg twice daily started before send tolerated then switch to Entresto as an outpatient. Continue goal-directed guideline recommended therapy. 2. Paroxysmal atrial fibrillation ? Patient presented with RVR. Patient was started on Cardizem drip admitted to monitored bed. Cardizem drip being titrated to keep heart rate less than 100 03/24: Patient has A-fib with RVR. Metoprolol dose increased to 75 mg twice daily. Digoxin dose to 50 mg added. On Eliquis resumed in the evening today. 3. Acute kidney injury ? Creatinine from 03/03/2025 was 1.06 creatinine on admission was 1.50. This is suspected to be secondary to hypoperfusion from CHF do expect improvement in kidney function with with diuresis. Repeat BMP ordered in a.m. for monitoring ? 03/22/2025; patient creatinine down to 1.18 ? 03/23/2025; creatinine stable at 1.17 03/24: Creatinine 1.26. 4. Runs of nonsustained VT ? Attributed to patient severe cardiomyopathy. Plan is to continue with telemetry monitoring 5. Hypokalemia ? Corrected for protocol. Also recheck magnesium as well as phosphorus levels 6. Essential hypertension Patient is on metoprolol did continue lisinopril was held given patient worsening kidney function 7. COPD ? Currently not in exacerbation aerosol treatment as needed 8. Abnormal LFTs ? Suspected to be secondary to hepatic congestion from CHF repeated LFTs in a.m. for further management ? 03/22/2025; patient LFTs still remain elevated. 9. Elevated troponin Suspected to be secondary to demand ischemia from congestive heart failure. Patient troponins have remained flat. Echo has been ordered for LVEF assessment 10. Class III obesity with BMI of 40.6 ? Complicating care weight loss advised 11. Tobacco dependence ? Counseled on cessation, offered nicotine patch for tobacco cravings 12. DVT prophylaxis ? Patient is on systemic anticoagulation Charges/Coding Visit Charges Inpatient E&M: 22034 Subs Hosp L2
[2025-03-24] MEDS: Furosemide 40 MG/4 ML Vial IV (17:31)
[2025-03-24] MEDS: DiphenhydrAMINE 25 MG Capsule PO (22:08)
[2025-03-24] MEDS: APIXABAN 5 MG TABLET PO (22:08)
[2025-03-24] MEDS: Metoprolol Tartrate 25 MG Tablet 75 MG PO (22:08)
[2025-03-24] MEDS: Lisinopril 2.5 MG Tablet PO (22:09)
[2025-03-25] VITALS (8 sets, daily range): BP systolic 97–122; BP diastolic 69–95; PULSE 67–120; RESP 16–18; TEMP 36.2–36.8; O2SAT 92–95; BMI 38.8
[2025-03-25] MEDS: hydrOXYzine PAM 25 MG Capsule PO (02:22)
--- NOTE | 2025-03-25 08:22 | PCM.PN.CARD ---
Subjective Subjective Patient seen at the bedside this morning. He sitting up in the chair in no apparent distress. He denies any significant shortness of breath reports that his lower extremity edema has markedly improved since admission. The patient does tell me that he has noticed the lower extremity edema started after a viral infection and bronchitis in early January 2025. Prior to that time he had had an episode of longstanding history with palpitations. He had never been told that he had atrial fibrillation to his knowledge. It does appear that he was diagnosed with atrial fibrillation sometime in January 2025 as he was placed on Eliquis about 3 weeks ago. The patient is not sure when he originally went into atrial fibrillation. He does notice that his lower extremity edema became markedly worse after his viral infection in January 2025. Patient's catheterization showed normal coronary arteries and his EF is known to be in the 10-15% range. The patient is being titrated on guideline directed medical therapy. Objective Data Vital Signs: Vital Signs Temp Pulse Resp BP Pulse Ox O2 Del Method 98.2 F 107 H 16 108/82 H 95 Room Air 03/25/25 06:20 03/25/25 06:20 03/25/25 06:20 03/25/25 06:20 03/25/25 06:20 03/25/25 06:20 Oxygen Delivery Method Room Air Weight: 255 lb 8.252 oz Body Mass Index (BMI) 38.8 Intake & Output: Intake and Output for Last 24 Hours 03/23/25 03/24/25 03/25/25 23:59 23:59 23:59 Intake Total 970.00 / 970.00 968.75 / 968.75 240 / 240 Output Total 1275 / 1475 850 / 850 0 / 0 Balance -305.00 / -505.00 118.75 / 118.75 240 / 240 Lab / Micro Data Attestation: I reviewed the patient's lab results. 03/24/25 02:59 03/24/25 02:59 Labs: Laboratory Results - last 24 hr 03/24/25 09:35: APTT 34.6 Rhythm Strip Rhythm Strip: A-fib Rate: 110 Cardiology Labs/Tests 03/24/25 09:35: APTT 34.6 Rhythm: EKG: ECHO: Stress Test: Cardiac Cath: PCI: CT Surgery: Holter monitor: EPS: PPM: CXR: Chest CT Scan: Physical Exam Const alert and oriented x3 HEENT normocephalic Eyes EOMs intact bilaterally Neck no JVD Neck Narrative: At 90 degrees in the chair. Chest inspection of chest normal Resp normal respiratory effort Auscultation: crackles bilateral lower Cardio Cardio Narrative: Distant heart tones Rate: tachycardic Rhythm: abnormal rhythm irregularly irregular Heart Sounds: S1 normal and S2 normal; Negative for click, gallop or murmur Extremity General Extremity: edema right lower extremity moderate and left lower extremity mild Skin Skin Narrative: Hyperkeratotic changes over the patient's lower extremities Neuro Neuro Narrative: Alert and oriented x 3 Psych mental status grossly normal Assessment & Plan Assessment/Plan (1) Atrial fibrillation with RVR: PLAN: Patient's heart rate remains elevated in the 100-115 bpm range. He is on metoprolol 75 mg twice daily. Will increase this to 100 mg twice daily and monitor his blood pressure response and heart rate. The patient remains on Eliquis he has been on it for 3 weeks. Echocardiogram shows mild biatrial enlargement. It is difficult to determine the onset of his atrial fibrillation. (2) Acute systolic CHF (congestive heart failure): PLAN: Patient's LV dysfunction ejection fraction reduced to approximately 10%. Catheterization yesterday showed normal coronary arteries. This decompensation appears to be temporally correlated with a viral infection approximately 2 months ago. Patient is currently on afterload reduction therapy, diuretic therapy, beta-shaniqua therapy, and Jardiance. The patient is not on spironolactone at this point in time his creatinine is 1.26 we are monitoring his renal response to his current therapies. Spironolactone will be added in the ambulatory setting. Recommend the patient be up and ambulatory to assess his response to his titration of his medical therapy. Tentative discharge to home in the next 24 hours.
[2025-03-25] MEDS: Empagliflozin 10 MG Tablet PO (09:56)
[2025-03-25] MEDS: Furosemide 40 MG/4 ML Vial IV ×2 (09:56→18:04)
[2025-03-25] MEDS: 0.9% Saline Lock 10 ML Syringe IV ×4 (09:56→21:30)
[2025-03-25] MEDS: APIXABAN 5 MG TABLET PO ×2 (09:56→21:29)
[2025-03-25] MEDS: Metoprolol Tartrate 100 MG Tablet PO ×2 (09:57→21:29)
[2025-03-25] MEDS: Lisinopril 2.5 MG Tablet PO ×2 (09:57→21:29)
[2025-03-25] MEDS: Ondansetron 4 MG/2 ML Vial IV (12:21)
--- NOTE | 2025-03-25 16:26 | PCM.PN.HOSP ---
Reason for Visit Reason for Visit: Diagnoses Nicotine dependence, unspecified, uncomplicated (03/20/25) Unspecified atrial fibrillation (03/20/25) Acute systolic (congestive) heart failure (03/20/25) Dyspnea, unspecified (03/20/25) Abnormal findings on diagnostic imaging of heart and coronary circulation (03/20/25) Personal history of other diseases of the respiratory system (03/20/25) Objective Data Objective Data Vital Signs: Vital Signs Temp Pulse Resp BP Pulse Ox O2 Del Method 97.5 F L 67 18 100/86 H 94 Room Air 03/25/25 10:37 03/25/25 10:37 03/25/25 10:37 03/25/25 10:37 03/25/25 10:37 03/25/25 14:51 Oxygen Delivery Method Room Air Weight: 255 lb 8.252 oz Body Mass Index (BMI) 38.8 Intake & Output: Intake and Output for Last 24 Hours 03/23/25 03/24/25 03/25/25 23:59 23:59 23:59 Intake Total 970.00 / 970.00 968.75 / 968.75 1001.25 / 1001.25 Output Total 1275 / 1475 850 / 850 0 / 0 Balance -305.00 / -505.00 118.75 / 118.75 1001.25 / 1001.25 Lab / Micro Data 03/24/25 02:59 03/24/25 02:59 Rhythm Strip Rhythm Strip: A-fib Rate: 110 Physical Exam Narrative Seen and examined. At present, patient denies chest pain or shortness of breath. Had cardiac cath in the morning and reported normal coronary arteries. Patient has chronic dermatitis since young age. Physical exam General: Alert, Oriented x3, Cooperative. BMI 38.9 kg/m? HEENT: Atraumatic, PERRLA, EOMI, Normocephalic. Oral: No Gingival or Mucosal Lesions/ Ulcerations Neck: Supple, No JVD, Negative Carotid Bruits Chest wall/Lungs: Air entry diminished in bilateral lung bases. No crepitation/rhonchi Cardiovascular: A-fib, Normal S1,S2, systolic murmur LLSB and cardiac apex Abdomen: Bowel Sounds Present, Soft, Non Tender, Non-Distended : No dysuria. No renal angle tenderness. No suprapubic tenderness. Extremities: 2+ bilateral pitting edema, Capillary Refill Less than 3 Seconds Skin: Chronic dermatitis with dry, rough, thick skin all over the body. Musculoskeletal: No Tenderness to Palpation of Joints or Extremities. ROM intact. Neurological: Cranial nerves II-XII grossly intact, DTR 2+/4. No acute focal neurological deficit. Psych/Mental Status: Normal Affect, Appropriate. Assessment & Plan Assessment/Plan (1) Acute systolic CHF (congestive heart failure): (2) Atrial fibrillation with RVR: PLAN: Plan Patient is a 69-year-old gentleman who was sent to the ED by the primary care physician on account of increasing shortness of breath with minimal activity as well as generalized swelling. An assessment of acute congestive heart failure was made admitted to monitored bed for further management 1. Acute congestive heart failure with reduced ejection from ? Admitted to monitored bed manage with strict input and output, daily weight, fluid restriction, low-sodium diet as well as diuretic therapy with furosemide drip. Echo ordered for EF assessment. Consult was placed to cardiology ? Patient has responded to diuretic therapy. Patient weight on admission was 121 currently down to 117 kg 2D echo obtained on 03/21/2025 did show The estimated ejection fraction is 10-15 %. Moderate concentric left ventricular hypertrophy. Moderate global right ventricular systolic dysfunction. Moderately dilated right ventricle. The left atrium is mildly enlarged. The right atrium is mildly enlarged. Mild (1+) mitral valve insufficiency. Mild (1+) eccentric tricuspid valve insufficiency. Consult was placed to cardiology patient seen by Dr. Freitas his notes and recommendations reviewed 03/24: Patient underwent cardiac cath and reported normal coronaries. Dilated cardiomyopathy. Seen by electrical products sales engineer recommend continue IV furosemide. Spironolactone added. SGLT2 started. Continue beta-shaniqua, metoprolol increased to 50 mg twice daily. After rate is controlled can switch to carvedilol. Lisinopril 2.5 mg twice daily started before send tolerated then switch to Entresto as an outpatient. Continue goal-directed guideline recommended therapy. 03/25: Patient medication is getting optimized. On furosemide 40 milligram IV twice daily, switch to oral tomorrow. 2. Paroxysmal atrial fibrillation ? Patient presented with RVR. Patient was started on Cardizem drip admitted to monitored bed. Cardizem drip being titrated to keep heart rate less than 100 03/24: Patient has A-fib with RVR. Metoprolol dose increased to 75 mg twice daily. Digoxin dose to 50 mg added. On Eliquis resumed in the evening today. 3. Acute kidney injury ? Creatinine from 03/03/2025 was 1.06 creatinine on admission was 1.50. This is suspected to be secondary to hypoperfusion from CHF do expect improvement in kidney function with with diuresis. Repeat BMP ordered in a.m. for monitoring ? 03/22/2025; patient creatinine down to 1.18 ? 03/23/2025; creatinine stable at 1.17 03/24: Creatinine 1.26. 03/25: Labs ordered 4. Runs of nonsustained VT ? Attributed to patient severe cardiomyopathy. Plan is to continue with telemetry monitoring 5. Hypokalemia ? Corrected for protocol. Also recheck magnesium as well as phosphorus levels 6. Essential hypertension Patient is on metoprolol did continue lisinopril was held given patient worsening kidney function 7. COPD ? Currently not in exacerbation aerosol treatment as needed 8. Abnormal LFTs ? Suspected to be secondary to hepatic congestion from CHF repeated LFTs in a.m. for further management ? 03/22/2025; patient LFTs still remain elevated. 9. Elevated troponin Suspected to be secondary to demand ischemia from congestive heart failure. Patient troponins have remained flat. Echo has been ordered for LVEF assessment 10. Class III obesity with BMI of 40.6 ? Complicating care weight loss advised 11. Tobacco dependence ? Counseled on cessation, offered nicotine patch for tobacco cravings 12. DVT prophylaxis ? Patient is on systemic anticoagulation Charges/Coding Visit Charges Inpatient E&M: 01942 Subs Hosp L2
[2025-03-25] MEDS: Spironolactone 25 MG Tablet PO (16:55)
[2025-03-25 18:48] LABS: Anion Gap 10 (5-15); BUN 32 mg/dL (4-19); BUN/Creat Ratio 22.7 RATIO (10-20); Calcium,Total 8.3 mg/dL (7.6-11.0); Carbon Dioxide 32.8 mmol/L (21.0-32.0); Chloride 97 mmol/L (98-108); Creatinine, Serum 1.39 mg/dL (0.70-1.20); EST Glomerular Filtration Rate 54 (>60); Estimated Creatinine Clearance 60.26 ml/min (50-250); Glucose 113 mg/dL (70-99); Potassium 4.1 mmol/L (3.3-5.1); Sodium Level 140 mmol/L (133-145)
[2025-03-25] MEDS: DiphenhydrAMINE 25 MG Capsule PO (21:30)
[2025-03-26] VITALS (7 sets, daily range): BP systolic 95–141; BP diastolic 82–86; PULSE 85–120; RESP 14–18; TEMP 36.4–36.6; O2SAT 91–94; BMI 37.4; BMI 37.1
[2025-03-26] MEDS: hydrOXYzine PAM 25 MG Capsule PO ×2 (03:52→21:59)
[2025-03-26 06:16] LABS: Anion Gap 10 (5-15); BUN 32 mg/dL (4-19); BUN/Creat Ratio 23.4 RATIO (10-20); Calcium,Total 8.1 mg/dL (7.6-11.0); Carbon Dioxide 31.4 mmol/L (21.0-32.0); Chloride 97 mmol/L (98-108); Creatinine, Serum 1.35 mg/dL (0.70-1.20); EST Glomerular Filtration Rate 56 (>60); Estimated Creatinine Clearance 60.85 ml/min (50-250); Glucose 104 mg/dL (70-99); Potassium 3.7 mmol/L (3.3-5.1); Sodium Level 139 mmol/L (133-145)
[2025-03-26 07:24] LABS: Magnesium 2.2 mg/dL (1.5-2.2)
[2025-03-26] MEDS: Digoxin 250 MCG Tablet 500 MCG PO (08:54)
--- NOTE | 2025-03-26 09:25 | PN.CARD_ITS ---
Subjective Subjective Patient sleeping in the bedside chair in a recliner. Denies any PND orthopnea. He reports that his lower extremity has markedly improved since his admission. He does report that he was ambulating some in the halls yesterday. Patient's blood pressures in the 95/60 range his heart rate 80-100 by palpation however on the telemetry is atrial fibrillation shows rates in the 100?120 range consistently. BUN and creatinine have stabilized. Objective Data Vital Signs: Vital Signs Temp Pulse Resp BP Pulse Ox O2 Del Method 97.8 F 111 H 15 120/85 H 93 Room Air 03/26/25 08:46 03/26/25 08:46 03/26/25 08:46 03/26/25 08:46 03/26/25 08:46 03/26/25 08:46 Oxygen Delivery Method Room Air Weight: 246 lb 4.101 oz Body Mass Index (BMI) 37.4 Intake & Output: Intake and Output for Last 24 Hours 03/24/25 03/25/25 03/26/25 23:59 23:59 23:59 Intake Total 968.75 / 968.75 1241.25 / 1241.25 460 / 460 Output Total 850 / 850 0 / 0 100 / 100 Balance 118.75 / 118.75 1241.25 / 1241.25 360 / 360 Lab / Micro Data Attestation: I reviewed the patient's lab results. 03/24/25 02:59 03/26/25 05:41 Labs: Laboratory Results - last 24 hr 03/25/25 17:41: Sodium 140, Potassium 4.1, Chloride 97 L, Carbon Dioxide 32.8 H, Anion Gap 10, BUN 32 H, Creatinine 1.39 H, Estim Creat Clear Calc 60.26, Est GFR (MDRD) Non-Af 54 L, BUN/Creatinine Ratio 22.7 H, Glucose 113 H, Calcium 8.3 03/26/25 05:41: Sodium 139, Potassium 3.7, Chloride 97 L, Carbon Dioxide 31.4, Anion Gap 10, BUN 32 H, Creatinine 1.35 H, Estim Creat Clear Calc 60.85, Est GFR (MDRD) Non-Af 56 L, BUN/Creatinine Ratio 23.4 H, Glucose 104 H, Calcium 8.1, Magnesium 2.2 Rhythm Strip Rhythm Strip: A-fib Rate: 110 Cardiology Labs/Tests 03/25/25 17:41: Sodium 140, Potassium 4.1, Chloride 97 L, Carbon Dioxide 32.8 H, Anion Gap 10, BUN 32 H, Creatinine 1.39 H, Est GFR (MDRD) Non-Af 54 L, B UN/Creatinine Ratio 22.7 H, Glucose 113 H, Calcium 8.3 03/26/25 05:41: Sodium 139, Potassium 3.7, Chloride 97 L, Carbon Dioxide 31.4, Anion Gap 10, BUN 32 H, Creatinine 1.35 H, Est GFR (MDRD) Non-Af 56 L, B UN/Creatinine Ratio 23.4 H, Glucose 104 H, Calcium 8.1, Magnesium 2.2 Rhythm: EKG: ECHO: Stress Test: Cardiac Cath: PCI: CT Surgery: Holter monitor: EPS: PPM: CXR: Chest CT Scan: Physical Exam Const alert and oriented x3 HEENT normocephalic Eyes EOMs intact bilaterally Neck no JVD Chest inspection of chest normal Resp normal respiratory effort Auscultation: rhonchi throughout Cardio Rate: tachycardic Rhythm: abnormal rhythm irregularly irregular Heart Sounds: S1 normal and S2 normal; Negative for click, gallop or murmur GI soft to palpation Extremity General Extremity: edema bilateral lower extremity Details: mild Skin Skin Narrative: Hyperkeratosis and hyperpigmentation noted on bilateral lower extremities. Neuro Neuro Narrative: Alert and oriented x 3 Psych mental status grossly normal Assessment & Plan Assessment/Plan (1) Atrial fibrillation with RVR: PLAN: Patient remains in atrial fibrillation. I am uncertain of the duration of his atrial fibrillation it is probably within the last 2 months as best we can ascertain. He has been on Eliquis for 3 weeks. The patient's heart rate remains less than optimally controlled at 100-120 bpm on telemetry. His blood pressure is 95/60 which limits some of the rate modulating drugs we can utilize. He is currently tolerating metoprolol 100 mg twice daily. I recommend we add Lanoxin 0.5 mg this morning and 0.25 later today orally. He will then be placed on 0.25 daily and we will reevaluate him in 1 week in the office with a Lanoxin level and EKG. Following 3?4 more weeks of Eliquis would consider bringing the patient back for attempted direct-current cardioversion. Both atria are only mildly enlarged on echocardiogram done this admission. Another alternative would be addition of amiodarone to the patient's medical therapy in the ambulatory setting. This is an attempt to to obtain chemical cardioversion or if that fails a better chance at maintenance of sinus rhythm should a direct-current cardioversion be successful. Decision on amiodarone be made when he is evaluated in 1 week in the office. (2) Acute systolic CHF (congestive heart failure): PLAN: Patient's heart failure reduced ejection fraction EF is 10%. He does have mild biatrial enlargement he is on Jardiance 10 mg daily. He is now on Lanoxin 250 mcg daily. Furosemide 40 mg twice daily lisinopril 2.5 mg twice daily metoprolol tartrate 100 mg twice daily and spironolactone 25 mg daily. This represents maximum guideline directed medical therapy and his blood pressure is tolerating it however his heart rate remains elevated. We are trying to address that by adding Lanoxin to his medical therapy. The basic metabolic panel will be checked in 1 week. Today will obtain an N- terminal proBNP for baseline this will be repeated in the future. The patient will be reevaluated in our office at the [facility] 1 week after discharge with an ECG and a discussion concerning addition of amiodarone and discontinuation of Lanoxin at that time and then plan direct-current cardioversion 3 to 4 weeks later. PLAN: Plan 1. Continue current medical therapy. 2. Will add Lanoxin for rate control. 3. If blood pressure heart rate and renal functions are remained stable should be able to discharge to home in the next 24 hours. 4. After discharge follow-up in the [facility] office in 1 week for ECG and further treatment options as noted in #2 above. Charges/Coding Visit Charges Inpatient E&M: 44325 [facility] Hosp L3
[2025-03-26 09:38] LABS: Pro- Brain NATRIURETIC PEPTIDE 16842 pg/mL (<=900)
[2025-03-26] MEDS: Empagliflozin 10 MG Tablet PO (09:49)
[2025-03-26] MEDS: Lisinopril 2.5 MG Tablet PO ×2 (09:49→21:55)
[2025-03-26] MEDS: Spironolactone 25 MG Tablet PO (09:49)
[2025-03-26] MEDS: APIXABAN 5 MG TABLET PO ×2 (09:49→21:55)
[2025-03-26] MEDS: Metoprolol Tartrate 100 MG Tablet PO ×2 (09:49→21:55)
[2025-03-26] MEDS: Furosemide 40 MG Tablet PO ×2 (09:53→17:09)
--- NOTE | 2025-03-26 11:05 | CASEMGMT ---
MAYE ROSE updated by nursing that was inquiring about HHC nursing for education. MAYE ROSE in to discuss HHC and requirements for HHC including patient being homebound for HHC. Patient sleeping, states that patient will not be homebound. MAYE ROSE provided information regarding [facility]. appreciated information and states she will call [facility] herself if they are interested. had no further questions or concerns.
[2025-03-26] MEDS: Digoxin 250 MCG Tablet PO (17:08)
--- NOTE | 2025-03-26 17:16 | PN.HOSP_ITS ---
Reason for Visit Reason for Visit: Diagnoses Nicotine dependence, unspecified, uncomplicated (03/20/25) Unspecified atrial fibrillation (03/20/25) Acute systolic (congestive) heart failure (03/20/25) Dyspnea, unspecified (03/20/25) Abnormal findings on diagnostic imaging of heart and coronary circulation (03/20/25) Personal history of other diseases of the respiratory system (03/20/25) Objective Data Objective Data Vital Signs: Vital Signs Temp Pulse Resp BP Pulse Ox O2 Del Method 97.9 F 100 14 141/86 H 94 Room Air 03/26/25 15:29 03/26/25 15:29 03/26/25 15:29 03/26/25 15:29 03/26/25 15:29 03/26/25 15:36 Oxygen Delivery Method Room Air Weight: 244 lb 4.355 oz Body Mass Index (BMI) 37.1 Intake & Output: Intake and Output for Last 24 Hours 03/24/25 03/25/25 03/26/25 23:59 23:59 23:59 Intake Total 968.75 / 968.75 1241.25 / 1241.25 960 / 960 Output Total 850 / 850 0 / 0 400 / 400 Balance 118.75 / 118.75 1241.25 / 1241.25 560 / 560 Lab / Micro Data 03/24/25 02:59 03/26/25 05:41 Labs: Laboratory Results - last 24 hr 03/25/25 17:41: Sodium 140, Potassium 4.1, Chloride 97 L, Carbon Dioxide 32.8 H, Anion Gap 10, BUN 32 H, Creatinine 1.39 H, Estim Creat Clear Calc 60.26, Est GFR (MDRD) Non-Af 54 L, BUN/Creatinine Ratio 22.7 H, Glucose 113 H, Calcium 8.3 03/26/25 05:41: Sodium 139, Potassium 3.7, Chloride 97 L, Carbon Dioxide 31.4, Anion Gap 10, BUN 32 H, Creatinine 1.35 H, Estim Creat Clear Calc 60.85, Est GFR (MDRD) Non-Af 56 L, BUN/Creatinine Ratio 23.4 H, Glucose 104 H, Calcium 8.1, Magnesium 2.2, [place] [address] H Rhythm Strip Rhythm Strip: A-fib Rate: 110 Physical Exam Narrative Seen and examined. At present, patient denies chest pain or shortness of breath. Had cardiac cath in the morning and reported normal coronary arteries. Patient has chronic dermatitis since young age. Heart rate was 120 in the morning but is better about 90s in the afternoon. Physical exam General: Alert, Oriented x3, Cooperative. BMI 38.9 kg/m? HEENT: Atraumatic, PERRLA, EOMI, Normocephalic. Oral: No Gingival or Mucosal Lesions/ Ulcerations Neck: Supple, No JVD, Negative Carotid Bruits Chest wall/Lungs: Air entry diminished in bilateral lung bases. No crepitation/rhonchi Cardiovascular: A-fib, Normal S1,S2, systolic murmur LLSB and cardiac apex Abdomen: Bowel Sounds Present, Soft, Non Tender, Non-Distended : No dysuria. No renal angle tenderness. No suprapubic tenderness. Extremities: 1+ bilateral pitting edema, Capillary Refill Less than 3 Seconds Skin: Chronic dermatitis with dry, rough, thick skin all over the body. Musculoskeletal: No Tenderness to Palpation of Joints or Extremities. ROM intact. Neurological: Cranial nerves II-XII grossly intact, DTR 2+/4. No acute focal neurological deficit. Psych/Mental Status: Normal Affect, Appropriate. Assessment & Plan Assessment/Plan (1) Acute systolic CHF (congestive heart failure): (2) Atrial fibrillation with RVR: PLAN: Plan Patient is a 69-year-old gentleman who was sent to the ED by the primary care physician on account of increasing shortness of breath with minimal activity as well as generalized swelling. An assessment of acute congestive heart failure was made admitted to monitored bed for further management 1. Acute congestive heart failure with reduced ejection from ? Admitted to monitored bed manage with strict input and output, daily weight, fluid restriction, low-sodium diet as well as diuretic therapy with furosemide drip. Echo ordered for EF assessment. Consult was placed to cardiology ? Patient has responded to diuretic therapy. Patient weight on admission was 121 currently down to 117 kg 2D echo obtained on 03/21/2025 did show The estimated ejection fraction is 10-15 %. Moderate concentric left ventricular hypertrophy. Moderate global right ventricular systolic dysfunction. Moderately dilated right ventricle. The left atrium is mildly enlarged. The right atrium is mildly enlarged. Mild (1+) mitral valve insufficiency. Mild (1+) eccentric tricuspid valve insufficiency. Consult was placed to cardiology patient seen by Dr. Freitas his notes and recommendations reviewed 03/24: Patient underwent cardiac cath and reported normal coronaries. Dilated cardiomyopathy. Seen by concrete pouring supervisor recommend continue IV furosemide. Spironolactone added. SGLT2 started. Continue beta-shaniqua, metoprolol increased to 50 mg twice daily. After rate is controlled can switch to carvedilol. Lisinopril 2.5 mg twice daily started before send tolerated then switch to Entresto as an outpatient. Continue goal-directed guideline recommended therapy. 03/25: Patient medication is getting optimized. On furosemide 40 milligram IV twice daily, switch to oral tomorrow. 03/26: Continue furosemide, changed to oral 40 mg twice daily. Continue above medications 2. Paroxysmal atrial fibrillation ? Patient presented with RVR. Patient was started on Cardizem drip admitted to monitored bed. Cardizem drip being titrated to keep heart rate less than 100 03/24: Patient has A-fib with RVR. Metoprolol dose increased to 75 mg twice daily. Digoxin dose to 50 mg added. On Eliquis resumed in the evening today. 03/26: Patient heart rate at rest was about 110 to 120/min and walking it goes to 140 pulm and therefore could not be discharged. Lanoxin was added for rate control was given IV and then repeated 6 PM. Labs ordered for tomorrow a.m. 3. Acute kidney injury ? Creatinine from 03/03/2025 was 1.06 creatinine on admission was 1.50. This is suspected to be secondary to hypoperfusion from CHF do expect improvement in kidney function with with diuresis. Repeat BMP ordered in a.m. for monitoring ? 03/22/2025; patient creatinine down to 1.18 ? 03/23/2025; creatinine stable at 1.17 03/24: Creatinine 1.26. 03/25: Labs ordered 03/26: Creatinine 1.35. Potassium in normal range. Magnesium 2.2. 4. Runs of nonsustained VT ? Attributed to patient severe cardiomyopathy. Plan is to continue with telemetry monitoring 5. Hypokalemia ? Corrected for protocol. Also recheck magnesium as well as phosphorus levels 6. Essential hypertension Patient is on metoprolol did continue lisinopril was held given patient worsening kidney function 7. COPD ? Currently not in exacerbation aerosol treatment as needed 8. Abnormal LFTs ? Suspected to be secondary to hepatic congestion from CHF repeated LFTs in a.m. for further management ? 03/22/2025; patient LFTs still remain elevated. 9. Elevated troponin Suspected to be secondary to demand ischemia from congestive heart failure. Patient troponins have remained flat. Echo has been ordered for LVEF assessment 10. Class III obesity with BMI of 40.6 ? Complicating care weight loss advised 11. Tobacco dependence ? Counseled on cessation, offered nicotine patch for tobacco cravings 12. DVT prophylaxis ? Patient is on systemic anticoagulation Charges/Coding Visit Charges Inpatient E&M: 17887 Subs Hosp L2
[2025-03-26] MEDS: 0.9% Saline Lock 10 ML Syringe IV (21:55)
[2025-03-26] MEDS: DiphenhydrAMINE 25 MG Capsule PO (21:59)
[2025-03-27] VITALS (8 sets, daily range): BP systolic 93–115; BP diastolic 74–94; PULSE 55–101; RESP 16–18; TEMP 36.4–36.5; O2SAT 91–94
[2025-03-27 06:32] LABS: Anion Gap 8 (5-15); BUN 33 mg/dL (4-19); Calcium,Total 8.2 mg/dL (7.6-11.0); Carbon Dioxide 35.1 mmol/L (21.0-32.0); Chloride 98 mmol/L (98-108); Creatinine, Serum 1.49 mg/dL (0.70-1.20); EST Glomerular Filtration Rate 50 (>60); Glucose 94 mg/dL (70-99); Potassium 3.9 mmol/L (3.3-5.1); Sodium Level 141 mmol/L (133-145)
--- NOTE | 2025-03-27 08:59 | PCM.PN.CARD ---
Subjective Subjective Patient resting comfortably seated in the chair. He sleeps in his chair at home. Patient reports that his activity levels are back to normal for him telemetry shows that his heart rate is better controlled with the addition of Lanoxin atrial fibs at 85-95 bpm on telemetry. BUN and creatinine are minimally elevated today at 33 and 1.49. Objective Data Vital Signs: Vital Signs Temp Pulse Resp BP Pulse Ox O2 Del Method 97.5 F L 77 16 115/92 H 94 Room Air 03/27/25 06:31 03/27/25 06:31 03/27/25 06:31 03/27/25 06:31 03/27/25 06:31 03/27/25 06:31 Oxygen Delivery Method Room Air Weight: 244 lb 4.355 oz Body Mass Index (BMI) 37.1 Intake & Output: Intake and Output for Last 24 Hours 03/25/25 03/26/25 03/27/25 23:59 23:59 23:59 Intake Total 1241.25 / 1241.25 1480 / 1480 240 / 240 Output Total 0 / 0 700 / 700 Balance 1241.25 / 1241.25 780 / 780 240 / 240 Lab / Micro Data Attestation: I reviewed the patient's lab results. 03/24/25 02:59 03/27/25 05:23 Labs: Laboratory Results - last 24 hr 03/26/25 05:41: [place] [address] H 03/27/25 05:23: Sodium 141, Potassium 3.9, Chloride 98, Carbon Dioxide 35.1 H, Anion Gap 8, BUN 33 H, Creatinine 1.49 H, Estim Creat Clear Calc 54.90, Est GFR (MDRD) Non-Af 50 L, BUN/Creatinine Ratio 22.0 H, Glucose 94, Calcium 8.2 Rhythm Strip Rhythm Strip: A-fib Rate: 90 Cardiology Labs/Tests 03/27/25 05:23: Sodium 141, Potassium 3.9, Chloride 98, Carbon Dioxide 35.1 H, Anion Gap 8, BUN 33 H, Creatinine 1.49 H, Est GFR (MDRD) Non-Af 50 L, BUN/Creatinine Ratio 22.0 H, Glucose 94, Calcium 8.2 Rhythm: EKG: ECHO: Stress Test: Cardiac Cath: PCI: CT Surgery: Holter monitor: EPS: PPM: CXR: Chest CT Scan: Physical Exam Const alert and oriented x3 HEENT normocephalic Eyes EOMs intact bilaterally Neck no JVD Chest inspection of chest normal Resp normal respiratory effort Auscultation: rhonchi throughout Cardio Cardio Narrative: Distant heart tones Rate: regular rate Rhythm: abnormal rhythm regularly irregular Heart Sounds: S1 normal and S2 normal; Negative for click, gallop or murmur Extremity General Extremity: edema right lower extremity moderate and left lower extremity mild Skin Skin Narrative: Hyperkeratotic hyperpigmented lower extremity skin. Psych mental status grossly normal Assessment & Plan Assessment/Plan (1) Acute systolic CHF (congestive heart failure): PLAN: The patient has a history of heart failure with reduced ejection fraction. He appears to be coming compensated. His BNP which we did as a baseline was 16,000 842 he does have persistent right greater than left lower extremity edema. He reports that he feels much better and is back to baseline with his breathing and his edema is markedly improved since admission. Patient's heart rate has come under better control under his current medical therapy. BUN and creatinine are still minimally elevated at 33 and 1.49 respectively he is tolerating guideline directed medical therapy. (2) Atrial fibrillation with RVR: PLAN: Patient's heart rate is better controlled with the addition of Lanoxin to his beta-shaniqua therapy. His telemetry shows atrial fibrillation with heart rates of 85-95 bpm. The patient will be discharged on Lanoxin 0.125 mg daily. Along with his metoprolol 100 mg twice daily. The patient will follow-up in the [facility] office with a basic metabolic panel and dig level in 1 week. PLAN: Plan 1. Patient will continue his guideline directed medical therapy Jardiance 10 mg daily, furosemide 40 mg daily, lisinopril 2.5 mg twice daily metoprolol 100 mg twice daily and spironolactone 25 mg daily. He is also on Lanoxin for rate control. 2. Obtain basic metabolic panel and dig level in 1 week. 3. Patient to be evaluated in the [facility] office in 1 week by her advanced practitioner. Charges/Coding Visit Charges Inpatient E&M: 10182 Subs Hosp L3
[2025-03-27] MEDS: Empagliflozin 10 MG Tablet PO (09:57)
[2025-03-27] MEDS: APIXABAN 5 MG TABLET PO (09:57)
[2025-03-27] MEDS: Furosemide 40 MG Tablet PO (09:58)
[2025-03-27] MEDS: Lisinopril 2.5 MG Tablet PO (09:58)
[2025-03-27] MEDS: Metoprolol Tartrate 100 MG Tablet PO (10:01)
[2025-03-27] MEDS: Spironolactone 25 MG Tablet PO (10:02)
[2025-03-27] MEDS: Digoxin 125 MCG Tablet PO (10:02)
--- NOTE | 2025-03-27 10:12 | DCINST_ITS ---
Discharge Instructions Diet Discharge Diet: Low fat / Low cholesterol, 8 Cup Fluid Restriction and 2000 mg Sodium Diet DC O2, CPAP, BIPAP needs Home O2 Discharge instructions: No Dressing / Incision Discharge Activity: Return to Normal Activity Weight Bearing Status: Weight bearing as tolerated Dressing / Incision Call your doctor if you observe: Fever of 101 or Higher, Coldness, Increased Pain, Numbness or Tingling, Change in Color, Inability to urinate, Inability to have a bowel movement, Shortness of breath, Dizziness, Fainting spells, Swelling in the ankles, Chest pain, Prolonged hiccupping, Increased palpitations (irregular heartbeat) and Calf discomfort Follow Up Care When: IN 2 WEEKS Test Results: Test results from this visit will be discussed in further detail at your follow- up appointment, if applicable. 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% Attending Provider: Derrick Chacon Primary Care Provider: Lee Mathews Consulting Providers: Sophia Lowe; Krissy Freitas; Stanley Calle Discharge Orders/Prescriptions Prescriptions: New furosemide 40 mg Tablet 40 mg PO DAILY 30 Days Qty: 30 2RF metoprolol tartrate 100 mg Tablet 100 mg PO BID 30 Days Qty: 60 1RF sennosides-docusate sodium [Stimulant Laxative Plus] 8.6-50 mg Tablet 2 tab PO BID PRN PRN (Reason: Constipation) Qty: 0 0RF Rx Instructions: OTC digoxin 125 mcg (0.125 mg) Tablet 125 mcg PO DAILY 30 Days Qty: 30 0RF lisinopril 2.5 mg Tablet 2.5 mg PO BID 30 Days Qty: 60 0RF Jardiance 10 mg Tablet 10 mg PO DAILY 30 Days Qty: 30 0RF spironolactone 25 mg Tablet 25 mg PO DAILY 30 Days Qty: 30 0RF Rx Instructions: Hold for serum potassium more than 5.0 Continued Eliquis 5 mg tablet 5 mg PO BID albuterol sulfate 90 mcg/actuation HFA aerosol inhaler 2 puff INHALATION 4X/DAY PRN PRN (Reason: shortness of breath or wheezing) Discontinued lisinopril 20 mg tablet 20 mg PO QDAY furosemide 20 mg tablet 20 mg PO BID PRN metoprolol tartrate 50 mg tablet 50 mg PO BID Referrals / Follow Up: Lee Mathews MD [Primary Care Provider] - Madhu Bautista MD [Med Staff - Active Staff] - In 1 Week (Follow Dr. Madhu Bautista in 1 week to 10 days.) Disposition Disposition (needs filled in before D/C Order can be placed): Home, Self Care
--- NOTE | 2025-03-27 11:13 | DS.PCM_ITS ---
Providers Date of Admission: 03/20/25 Date of Discharge: 03/27/25 Primary Care Physician: Dr. Lee Mathews MD Consultations 03/21/25 10:25 Consult: Cardiology Routine Consulting Provider: Krissy Freitas Reason for Consult: chf EMERGENT Consult: No Notified: Yes Date Notified: 03/21/25 Time Notified: 10:37 Method of Notification: Verbal Reason For Visit: HF EXAC, PAF RVR Diagnosis Discharge Diagnosis (1) Acute systolic CHF (congestive heart failure): Status: Acute Code(s): I50.21 - Acute systolic (congestive) heart failure (2) Atrial fibrillation with RVR: Status: Acute Code(s): I48.91 - Unspecified atrial fibrillation Plan Patient is a 69-year-old gentleman who was sent to the ED by the primary care physician on account of increasing shortness of breath with minimal activity as well as generalized swelling. An assessment of acute congestive heart failure was made admitted to monitored bed for further management 1. Acute congestive heart failure with reduced ejection from ? Admitted to monitored bed manage with strict input and output, daily weight, fluid restriction, low-sodium diet as well as diuretic therapy with furosemide drip. Echo ordered for EF assessment. Consult was placed to cardiology ? Patient has responded to diuretic therapy. Patient weight on admission was 121 currently down to 117 kg 2D echo obtained on 03/21/2025 did show The estimated ejection fraction is 10-15 %. Moderate concentric left ventricular hypertrophy. Moderate global right ventricular systolic dysfunction. Moderately dilated right ventricle. The left atrium is mildly enlarged. The right atrium is mildly enlarged. Mild (1+) mitral valve insufficiency. Mild (1+) eccentric tricuspid valve insufficiency. Consult was placed to cardiology patient seen by Dr. Freitas his notes and recommendations reviewed 03/24: Patient underwent cardiac cath and reported normal coronaries. Dilated cardiomyopathy. Seen by digital photographer recommend continue IV furosemide. Spironolactone added. SGLT2 started. Continue beta-shaniqua, metoprolol increased to 50 mg twice daily. After rate is controlled can switch to carvedilol. Lisinopril 2.5 mg twice daily started before send tolerated then switch to Entresto as an outpatient. Continue goal-directed guideline recommended therapy. 03/25: Patient medication is getting optimized. On furosemide 40 milligram IV twice daily, switch to oral tomorrow. 03/26: Continue furosemide, changed to oral 40 mg twice daily. Continue above medications 03/27: Creatinine started going up from 1.39, 1.35 and 1.49. Furosemide dosing changed from 40 mg twice daily to 40 mg daily. Patient on spironolactone 25 mg daily. Advised follow-up with Dr. Bautista in 1 week with BMP. On lisinopril 2.5 mg twice daily. Metoprolol 100 mg twice daily. 2. Paroxysmal atrial fibrillation ? Patient presented with RVR. Patient was started on Cardizem drip admitted to monitored bed. Cardizem drip being titrated to keep heart rate less than 100 03/24: Patient has A-fib with RVR. Metoprolol dose increased to 75 mg twice daily. Digoxin dose to 50 mg added. On Eliquis resumed in the evening today. 03/26: Patient heart rate at rest was about 110 to 120/min and walking it goes to 140 pulm and therefore could not be discharged. Lanoxin was added for rate control was given IV and then repeated 6 PM. Labs ordered for tomorrow a.m. 03/27: Heart rate is controlled 94/min. Discharged on digoxin 125 mcg daily. Keep potassium around 4 and magnesium around 2.0. 3. Acute kidney injury ? Creatinine from 03/03/2025 was 1.06 creatinine on admission was 1.50. This is suspected to be secondary to hypoperfusion from CHF do expect improvement in kidney function with with diuresis. Repeat BMP ordered in a.m. for monitoring ? 03/22/2025; patient creatinine down to 1.18 ? 03/23/2025; creatinine stable at 1.17 03/24: Creatinine 1.26. 03/25: Labs ordered 03/26: Creatinine 1.35. Potassium in normal range. Magnesium 2.2. 03/27: Creatinine slightly went up 1.49 from diuretic, cardiorenal disease and heart failure 4. Runs of nonsustained VT ? Attributed to patient severe cardiomyopathy. Plan is to continue with telemetry monitoring 5. Hypokalemia ? Corrected for protocol. Also recheck magnesium as well as phosphorus levels 6. Essential hypertension Patient is on metoprolol did continue lisinopril was held given patient worsening kidney function 7. COPD ? Currently not in exacerbation aerosol treatment as needed 8. Abnormal LFTs ? Suspected to be secondary to hepatic congestion from CHF repeated LFTs in a.m. for further management ? 03/22/2025; patient LFTs still remain elevated. 03/24: Liver chemistry still elevated 60, 80 probably due to liver congestion from CHF. 9. Elevated troponin Suspected to be secondary to demand ischemia from congestive heart failure. Patient troponins have remained flat. Echo has been ordered for LVEF assessment 10. Class III obesity with BMI of 40.6 ? Complicating care weight loss advised 11. Tobacco dependence ? Counseled on cessation, offered nicotine patch for tobacco cravings 12. DVT prophylaxis ? Patient is on systemic anticoagulation Discharge medication reconciliation done. Discharge follow-up instructions completed. Discharge process discussed with the patient and all questions were answered to patient's satisfaction. Follow with PCP in 1 to 2 weeks Total time spent, exact 35 minutes on discharge meds reconciliation, examination, coordination of care with nurses and ancillary staff, review of imaging and blood test and discussion with the patient on follow-up instructions. Medications at Discharge Home Medications albuterol sulfate 90 mcg/actuation aerosol inhaler 2 puff inhalation 4X/DAY PRN PRN shortness of breath or wheezing 03/20/25 apixaban 5 mg tablet (Eliquis) 5 mg PO BID blood thinner 03/20/25 digoxin 125 mcg (0.125 mg) tablet 125 mcg PO DAILY 30 days #30 tabs 03/27/25 empagliflozin 10 mg tablet (Jardiance) 10 mg PO DAILY 30 days #30 tabs 03/27/25 furosemide 40 mg tablet 40 mg PO DAILY 30 days #30 tabs 03/27/25 lisinopril 2.5 mg tablet 2.5 mg PO BID 30 days #60 tabs 03/27/25 metoprolol tartrate 100 mg tablet 100 mg PO BID 30 days #60 tabs 03/27/25 sennosides 8.6 mg-docusate sodium 50 mg tablet (Stimulant Laxative Plus) 2 tab PO BID PRN PRN Constipation #0 tabs 03/27/25 spironolactone 25 mg tablet 25 mg PO DAILY 30 days #30 tabs 03/27/25 Physical Exam Narrative Seen and examined. Heart rate is controlled. Leg swelling is also better. Furosemide frequency decreased from 40 mL twice daily to once daily Patient has chronic dermatitis since young age. Heart rate was 120 in the morning but is better about 90s in the afternoon. Physical exam General: Alert, Oriented x3, Cooperative. BMI 38.9 kg/m? HEENT: Atraumatic, PERRLA, EOMI, Normocephalic. Oral: No Gingival or Mucosal Lesions/ Ulcerations Neck: Supple, No JVD, Negative Carotid Bruits Chest wall/Lungs: Air entry diminished in bilateral lung bases. No crepitation/rhonchi Cardiovascular: A-fib, Normal S1,S2, systolic murmur LLSB and cardiac apex Abdomen: Bowel Sounds Present, Soft, Non Tender, Non-Distended : No dysuria. No renal angle tenderness. No suprapubic tenderness. Extremities: 1+ bilateral pitting edema, Capillary Refill Less than 3 Seconds Skin: Chronic dermatitis with dry, rough, thick skin all over the body. Musculoskeletal: No Tenderness to Palpation of Joints or Extremities. ROM intact. Neurological: Cranial nerves II-XII grossly intact, DTR 2+/4. No acute focal neurological deficit. Psych/Mental Status: Normal Affect, Appropriate. Weight / BMI Weight Weight: 244 lb 4.355 oz Body Mass Index (BMI) 37.1 ABG / Lab / Microbiology Data 03/24/25 02:59 03/27/25 05:23 Laboratory: Laboratory Results - last 24 hr 03/27/25 05:23: Sodium 141, Potassium 3.9, Chloride 98, Carbon Dioxide 35.1 H, Anion Gap 8, BUN 33 H, Creatinine 1.49 H, Estim Creat Clear Calc 54.90, Est GFR (MDRD) Non-Af 50 L, BUN/Creatinine Ratio 22.0 H, Glucose 94, Calcium 8.2 D/C Instructions DC O2, CPAP, BIPAP Needs Home O2 Discharge instructions: No Meaningful Use Info Meaningful Use Meaningful Use Diagnoses (Choose all that apply): CHF CHF JACKLYN/ARB ordered at discharge?: Yes Documented LVEF (%): 10 Ischemic Stroke Statin Dosing Therapy Reference: STATIN DOSE THERAPY REFERENCE: * Patients > 75 years receive moderate or high dose statin therapy. * Patients 75 years or YOUNGER should receive HIGH intensity statin dose unless contraindicated. You will be required to document reason for non-treatment if statin daily dose does not meet guidelines. 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% Attending Provider: Derrick Chacon Primary Care Provider: Lee Mathews Consulting Providers: Sophia Lowe; Krissy Freitas; Stanley Calle Discharge Orders/Prescriptions Prescriptions: New furosemide 40 mg Tablet 40 mg PO DAILY 30 Days Qty: 30 2RF metoprolol tartrate 100 mg Tablet 100 mg PO BID 30 Days Qty: 60 1RF sennosides-docusate sodium [Stimulant Laxative Plus] 8.6-50 mg Tablet 2 tab PO BID PRN PRN (Reason: Constipation) Qty: 0 0RF Rx Instructions: OTC digoxin 125 mcg (0.125 mg) Tablet 125 mcg PO DAILY 30 Days Qty: 30 0RF lisinopril 2.5 mg Tablet 2.5 mg PO BID 30 Days Qty: 60 0RF Jardiance 10 mg Tablet 10 mg PO DAILY 30 Days Qty: 30 0RF spironolactone 25 mg Tablet 25 mg PO DAILY 30 Days Qty: 30 0RF Rx Instructions: Hold for serum potassium more than 5.0 Continued Eliquis 5 mg tablet 5 mg PO BID albuterol sulfate 90 mcg/actuation HFA aerosol inhaler 2 puff INHALATION 4X/DAY PRN PRN (Reason: shortness of breath or wheezing) Discontinued lisinopril 20 mg tablet 20 mg PO QDAY furosemide 20 mg tablet 20 mg PO BID PRN metoprolol tartrate 50 mg tablet 50 mg PO BID Referrals / Follow Up: Lee Mathews MD [Primary Care Provider] - Madhu Bautista MD [Med Staff - Active Staff] - In 1 Week (Follow Dr. Madhu Bautista in 1 week to 10 days.) Disposition Disposition (needs filled in before D/C Order can be placed): Home, Self Care Charges/Coding Visit Charges Inpatient E&M: 42591 Disch Hosp >30min
--- NOTE | 2025-03-27 13:02 | CASEMGMT ---
Patient has order for discharge. Patient is discharging on Jardiance, RN CM called [facility], copay is $47. Patient does not qualify for home oxygen. RN CM in to discuss needs at discharge, at bedside. Patient denies needs or help at discharge. RN CM updated patient regarding copay for Jardiance. Patient and had no further questions or concerns.
== END 2025-03-27 14:20 | disposition home or self-care (01) | DRG 286 ==
LOC: ED 19:57 → PCU 20:10
PROVIDERS: Internal Medicine; Internal Medicine Cardiovascular Disease; Internal Medicine Interventional Cardiology; Physician Assistant; Admitting Provider Family Medicine; Emergency Provider Emergency Medicine; PCP Family Medicine; Visit Provider Internal Medicine
DX: I13.0 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 1 through stage 4 chronic kidney disease, or unspecified chronic kidney disease (principal); I50.23 Acute on chronic systolic (congestive) heart failure; I47.20 Ventricular tachycardia, unspecified; I24.89 Other forms of acute ischemic heart disease; N17.9 Acute kidney failure, unspecified; Z68.41 Body mass index [BMI] 40.0-44.9, adult; K76.1 Chronic passive congestion of liver; J44.9 Chronic obstructive pulmonary disease, unspecified; I08.1 Rheumatic disorders of both mitral and tricuspid valves; I48.0 Paroxysmal atrial fibrillation; E78.5 Hyperlipidemia, unspecified; N18.2 Chronic kidney disease, stage 2 (mild); E87.6 Hypokalemia; I42.9 Cardiomyopathy, unspecified; I42.0 Dilated cardiomyopathy; F17.210 Nicotine dependence, cigarettes, uncomplicated; Z79.01 Long term (current) use of anticoagulants; E66.813 Obesity, class 3; R94.5 Abnormal results of liver function studies; Z79.891 Long term (current) use of opiate analgesic
CPT/HCPCS: 36415; 71046; 80048; 80053; 80061; 80076; 83735; 83880; 84100; 84443; 84484; 85025; 85610; 85730; 93005; 93306; 93454; 94640; 94668; 97802; 99152; 99153; 99285; Q9957; Q9967; A4216; C1769; C1894; C8929; J1940; J2405

== ENCOUNTER → 2025-03-25 | Outpatient (CLI) | payer MEDICARE, SELFPAY | END | disposition home or self-care (01) | LOC: CVS 10-01 11:48 | PROVIDERS: PCP Family Medicine; Referring Provider Family Medicine; Visit Provider Family Medicine | DX: I50.9 Heart failure, unspecified (principal) ==

== ENCOUNTER → 2025-04-03 | Outpatient (CLI) | payer MEDICARE, SELFPAY ==
[2025-04-03 16:17] LABS: Absolute Lymphocyte Count 1.76 X10^3/uL (0.83-4.51); Absolute Neutrophil Count 4.6 X10^3/uL (2.0-7.7); Basophil# 0.03 X10^3/uL; Basophil% 0.4 % (0-1); Eosinophil# 0.05 X10^3/uL; Eosinophils% 0.7 % (0-5); Lymphocyte # 1.76 X10^3/ul (0.83-4.51); Lymphocyte % 24.6 % (19-41); Mean Corp Hgb Conc 32.1 g/dL (32-36); Mean Corpuscular Hgb 31.5 pg (27.0-32.0); Mean Corpuscular Volume 98.3 fL (80-94); Mean Platelet Vol. 11.1 fl (6.2-12.0); Monocyte# 0.66 X10^3/uL; Monocyte% 9.2 % (0-10); NRBC Flagged by Analyzer 0 % (0-5); Neutrophil # 4.63 X10^3/uL (2.7-7.7); Neutrophil % 64.7 % (47-70); POSITIVE COUNT YES; Platelet Count 95 K/mm3 (150-450); RBC Distribution Width CV 16.4 % (11.6-14.6); RBC Distribution Width SD 58.1 fl (35.1-43.9); Red Blood Count 5.39 M/mm3 (4.6-6.2); White Blood Count 7.2 K/mm3 (4.4-11.0)
[2025-04-03 16:25] LABS: Differential Indicated SCAN CRITERIA MET
[2025-04-03 16:38] LABS: Anion Gap 8 (5-15); BUN 29 mg/dL (4-19); BUN/Creat Ratio 24.2 RATIO (10-20); Carbon Dioxide 32.9 mmol/L (21.0-32.0); Chloride 98 mmol/L (98-108); Creatinine, Serum 1.18 mg/dL (0.70-1.20); EST Glomerular Filtration Rate 66 (>60); Glucose 82 mg/dL (70-99); Potassium 5.1 mmol/L (3.3-5.1); Pro- Brain NATRIURETIC PEPTIDE 9050 pg/mL (<=900); Sodium Level 138 mmol/L (133-145)
[2025-04-03 18:23] LABS: Platelet Estimate MOD DEC (ADEQ)
== END | disposition home or self-care (01) ==
LOC: LAB 15:34
PROVIDERS: PCP Family Medicine; Referring Provider Nurse Practitioner Gerontology; Visit Provider Nurse Practitioner Gerontology
DX: R06.00 Dyspnea, unspecified (principal)
CPT/HCPCS: 36415; 80048; 83880; 85025

== ENCOUNTER → 2025-05-01 | Outpatient (CLI) | payer MEDICARE, SELFPAY ==
--- NOTE | 2025-05-01 12:59 | PCM.CR.HP2 ---
CR - History & Physical General Arrival date:: 05/01/25 Arrival time:: 12:59 Date of Referral:: 03/24/25 Date of CR Evaluation:: 05/01/25 Referring Physician: Dr. Keyes Primary Diagnosis: HF w/EF<35% History of Present Cardiac Event Onset Date Heart Failure EF <35%:: Yes (onset 03/21/25) Medications Ambulatory Orders ?Medication ?Instructions ?Recorded albuterol sulfate 90 mcg/actuation 2 puff inhalation 4X/DAY PRN PRN 03/20/25 aerosol inhaler shortness of breath or wheezing sennosides 8.6 mg-docusate sodium 2 tab PO BID PRN PRN Constipation 03/27/25 50 mg tablet (Stimulant Laxative #0 tabs Plus) apixaban 5 mg tablet (Eliquis) 5 mg PO BID blood thinner #60 tabs 04/03/25 digoxin 125 mcg (0.125 mg) tablet 125 mcg PO DAILY #30 tabs 04/03/25 empagliflozin 10 mg tablet 10 mg PO DAILY #30 tabs 04/03/25 (Jardiance) furosemide 40 mg tablet 40 mg PO DAILY #30 tabs 04/03/25 lisinopril 5 mg tablet 5 mg PO BID #60 tabs 04/03/25 metoprolol tartrate 100 mg tablet 100 mg PO BID #60 tabs 04/03/25 spironolactone 25 mg tablet 25 mg PO DAILY #30 tabs 04/03/25 Allergies Allergies sertraline (From Zoloft) Allergy (Verified 04/03/25 13:56) Other CP AND SOB Sleep Disorder Evaluation Hx of Sleep Apnea: No Do you snore loudly (louder than talking or can be heard through closed doors)?: No Do you often feel tired/ fatigued/ sleepy during daytime?: No Has anyone observed you stop breathing during sleep?: No History of Hypertension (for STOP score): No STOP Results: Negative Advanced Directives Advanced Directives Do you have a Healthcare Power of Forming Machine Operator?: No Living Will: No Advance Directives Information Provided: No Advance Directives on File: No DNR Order?:: No Past Medical History Covid-19 Screening Physicial Symptoms Other Clinical Concerns Exposure Risk Pertinent Comorbidities 65 years or older:: Yes Has a serious heart condition:: Yes Past Medical Illness Medical History PAF (paroxysmal atrial fibrillation) CKD (chronic kidney disease), stage II Thrombocytopenia COPD (chronic obstructive pulmonary disease) Morbid obesity HLD (hyperlipidemia) HTN (hypertension) Tobacco use Anxiety and depression Cancer Past Surgical History Surgical History (Reviewed 04/03/25 @ 14:52 by Ariane Perez REFRIGERATING MACHINE OPERATOR, REFRIGERATING MACHINE OPERATOR-C) History of appendectomy Surgical History: no surgical history Family History Summary Family History Father History of blood clots Lupus Bowel disease Colon cancer Skin cancer CVA (cerebral vascular accident) Mother Hypertension Social History Smoking History Smoking Status: Current every day smoker (smoking cigars at this time) Years Smokin Substance Abuse Hx Substance Use: No Occupation Occupation (List type of work in comments):: Retired Social Environment Status Marital Status: Current Living Arrangements Living Environment:: Spouse Children How many children do you have?: 4 Do any of your children live nearby?: Yes Safety Do you feel safe in your surroundings?: Yes Assistance Do you need any assistance at home?: no Review of Systems Review of Systems Hints Review of Present Symptoms: Reports Fatigue, Heart Arrhythmia/Irregularities, Appetite - Normal and Appetite - Special Diet; Denies Shortness of Breath at Rest, Shortness of Breath with Exertion, PVD, Operative Discomfort, Angina, Wound Healing, Dizziness/Lightheadedness, Sleep - Normal or Sexual Changes Pain Is Patient Pain Free?: No Pain Location: lower extremity Pain Level: 5/10 Risk Factor Assessment Chief Complaint Chief Complaint: HF w/EF<35% Vital Signs Pulse Ox: 98 Blood Pressure: 122/83 Pulse Pulse Rate: 95 Hypertension Blood Pressure Sitting - Right Arm: 122/83 Obesity Height: 5 ft 8 in Weight:: 225 lb Weight in Pounds: 225.0 lbs Body Mass Index (BMI): 34.2 Nutritional Referral for Obesity: No (declines) Physical Inactivity Physical Inactivity: Recreational activity Risk Stratification Risk Guidelines: Moderate Risk: Risk Factor for Dyslipidemia, Risk Factor for Diabetes, Risk Factor for Hypertension, Risk Factor for Sedentary Lifestyle and Risk Factor for Depression and Highest Risk: Risk Factor for Smoking and Risk Factor for Obesity For Smoking Smoking Risk Guidelines For Dyslipidemia Dyslipidemia Risk Guidelines For Diabetes Mellitus Diabetes Risk Guidelines For Obesity/Overweight Obesity/Overweight Risk Guidelines For Hypertension Hypertension Risk Guidelines For Sedentary Lifestyle Sedentary Lifestyle Risk Guidelines For Depression Depression Risk Guidelines Family History Family History Father History of blood clots Lupus Bowel disease Colon cancer Skin cancer CVA (cerebral vascular accident) Mother Hypertension Motivation Motivation to Participate On a scale of 1 to 10, how prepared are you to commit to attending program?: 3 What do you see as barriers to successfully being able to complete the program?: nothing What do you see as the benefits of succesfully completing the program? In other words, what do you hope to get out of participating in the program?: more energy, back to normal Are there issues you are dealing with that will interfere with completing the program?: no Do you have a spouse or signficant other, family or friends who will help support you to complete the program?: yes
[2025-05-01 13:04] VITALS: BP 122/83; PULSE 95; O2SAT 98
--- NOTE | 2025-05-01 13:04 | CR.ITP_ITS ---
Diagnosis General Information Admitting Diagnosis: HF w/EF<35% Personal Learning Style:: Audio/Visual Barriers to Learning: No Barriers Stage of change r/t lifestyle modifications:: Contemplation Gave educational material for:: Treating Heart Disease, How The Heart Works, What it means to have Heart Disease, How Coronary Artery Disease is Diagnosed, Heart Procedures, What Heart Medications Do, Risk Factors & Modifications, L iving an Active Life, Nutrition, Emotions & Heart Disease, Stress Management & Relaxation and Sleep Disorders & Heart Disease Education/Goals Cardiac Rehabilitation Goals Personal Goals: Initial Assessment: Improve management of stress and emotions, Improve energy level, Get back to work, or to resume activities faster, Improve knowledge of cardiac disease, Improve muscle strength and endurance, Improve diet and eating habits (eat healthier), Control risk factors (learn risk factor modification) and Other goal: Scale for measuring improvement of personal goals Diagnosis & Disease Process Outcomes/Goals: Pt IDs own risk factors & lifestyle modifications by Session 10, Verbalizes symptoms of angina & response by session 3., Pt independently manages and Other Additional Outcomes/Goals: Plan/Interventions: Assist Pt to ID & engage in lifestyle modification to reduce CVD risk, Instruct on individual risk factors, Review symptoms of angina & emergency actions, Review secondary diagnosis & identify educational needs. and Other see comment 30 day Reassessments:: Not Met 30 day Reassessments:: Not Met 30 day Reassessments:: Not Met 30 day Reassessments:: Not Met Final Reassessments:: Not Met Safety Referral to Physical Therapy: No Referral to [facility] Case Management: No Fall Risk Assessed:: Yes Assistive Devices:: None Exercise - Initial Assessment Visit Date of Eval: 05/01/25 (initial eval) Mets: Pre-: >3 METS for 30 minutes by discharge, >5 METS for 30 minutes by discharge, >7 METS for 30 minutes by discharge and Unable to meet goal due to: (see comment below) Physician Prescribed Exercise Modalities: Treadmill, Rower, Elio [place]dyne AD-7, SciFit Stepper, SciFit Pro- II Ergometer and SciFit Lateral [place] Frequency: 3x/week for 12 weeks [36 sessions] Intensity: 60-80% of age predicted maximum heart rate reserve Duration: 30 - 45 minutes Current METSs:: 3 Target Heart Rate:: 89-112 Resting Blood Pressure: 122/83 EKG Type: A-fib w/ RVR, nonspecific T wave abnormality Outcomes & Goals Goals:: Verbalizes understanding of THR, RPE & goal METS by session 6, Documents in home exercise log/reports 30 min aerobic 5 day/wk by DC, Demonstrates accurate pulse taking by DC and Other additional outcome/goals: see below Intervention & Plan Exercise Program Goals: Instruct on personal THR & RPE, Instruct on MET level & personal MET goal, Show patient to take own pulse /validate performance until accurate, Instruct on home exercise and Other additional plan/int Physical Activity Home Exercise Physical Activity - Home Exercise: Safe Exercise, Warm-up, Self-monitoring, Cool-Down, Home Exercise > 30 min Daily and Sitting Time <3 hours/daily Outcomes & Goals Outcomes/Goals: Demonstrates correct Warm-up/exercise Cool-Down (S3) if = 2.5 METs, Verbalizes symptoms of exercise intolerance by Session 3 (S3), Demonstrate safe equipment use (S3) & follows exercise prescrition (6) and Other: See below Intervention & Plan Plan/Intervention: Instruct warm-up & cool-down if exercising at > 2 METs, Instruct on symptoms of exercise intolerance & actions to take, Instruct & monitor on saf, Assess intial functional capacity & safety risk and Other See below Nutrition - Initial Assessment Program Goals Nutrition Program Goals Patient has diagnosis of Hyperlipidemia (ICD E78)?: No Visit Date of Eval: 05/01/25 (initial eval ) Cholesterol/Lipids (Other Core Measures) Determine presence & major risk factors that modify LDL goal: Cigarette smoking, Hypertension or hypertensive medication, Low HDL cholesterol <40 mg/dL*, Family history of premature CHD in Male < 55 years: female <65 yearsFa and Age men > 45 years; women >/= 55 years Outcomes/Goals: Pt IDs own risk factors & lifestyle modifications by Session 10, Verbalizes symptoms of angina & response by session 3., Pt independently manages and Other Additional Outcomes/Goals: Intervention/Plan: Advocate for lipid panel cholesterol medication if applicable, Instruct on personal lipid levels & lipid goals/NCEP guidelines, Instruct on cholesterol and Other additional plan/int Referral to dietitian:: No (declines) Diabetes (Other Core Measures) Diabetes Type: Not Applicable Weight Mgt (Other Care) Height: 5 ft 8 in Weight:: 225 lb BMI: 34.2 Diagnosis Overweight/Obesity BMI> 30% ICD-10 E66: Yes Diagnosis High BMI/Morbid Obesity BMI> 35% ICD-10 Z68: No Outcomes/Goals: Pt sets, maintains & shows weight loss goal & trend during rehab and Other additional outcomes/goals Intervention/Plan: Instruct on ideal BMI & set weight loss goal w/patient, Assist pt to ID & incorporate diet changes for weight loss by S9, Refer to Structured Weight Loss program as appropriate, Encourage goal of using 250- 300dcal per session for weight loss and Other additional plan/interventions Healthy Eating Habits Will attend diet classes:: Yes Outcomes/Goals:: Consume diet rich in vegs,fruits,whole grain/high fiber,fish,lean meat, Limit sat/trans fats,cholesterol & added salts & sugars and Other additional outcome/goals: Intervention/Plan:: Assess current eating habits and Other Additional plan/interventions Education Gave educational materials for:: Signs & symptoms of hypoglycemia, Signs & symptoms of hyperglycemia, Relate diabetes to coronary artery disease and Healthy eating Core - Initial Assessment Visit Date of Eval: 05/01/25 (initial eval ) Medication Compliance Preventative Medication(s):: JACKLYN inhibitor, Beta shaniqua and Eliquis H/O mental health issues: depression, anxiety, or addiction?: No Doesn?t believe in the benefits of treatment?: No Believes medications are unnecessary or harmful?: No Has a concern about medication side effects?: No Expresses concern over the cost of medications?: No Outcomes/Goals: Verbalizes medications,desired effect & common side effects @ DC, Pt self-reports following medication regimen, Keeps card in wallet w/medications listed by DC and Other additional outcome/goals: Interventions/plans: Instruct on medication effects & side effects, Review medication list w/patient every two weeks, Instruct importance of taking meds as ordered & assist problem solving and Other additional Tobacco Use Tobacco Use: Cigars Years Smokin (smokes a cigar a day) Outcomes/Goals: Smoking cessation achieved or maintained by discharge, Identify aids/strategies for achieving smoking cessation by session 6 and Other additional outcome/goals Interventions/plan: Instruct on effects of smoking & provide smoking cessation resource, Assist pt to set quit date & provide encouragement, Assist pt to develop strategies to achieve/maintain quit date, Assist pt w/nicotine replacement & medication for cessation success and Other additional plan/interventions Hypertension Hypertension Diagnosis:: Not Applicable Resting Blood Pressure:: 122/83 [place] [employer] Hypertension Guidelines Outcomes/Goals: Able to verbalize/achieve optimal blood pressure <130/80, Incorporates diet changes & exercise for blood pressure control by DC and Other additional outcomes/goals Interventions/plan: Instruct on optimal blood pressure, hypertension & medications, Instruct on effects of sodium, alcohol, stress, exercise &hypertension and Other additional plan/interventions Tobacco Cessation Referral Education Schedule Given:: Yes Psychosocial - Initial Assess VIsit Date of Eval: 05/01/25 (initial eval ) History of previous Mental disease:: No Self-reported stressors Other/Comments:: Pt states he is feeling a a little down due to recent illness Target Goals Target Goals Psychosocial Test Tool Used:: PHQ-9 Questionnaire phq-9 Severity See PHQ-9 Score: 2 Referral to Behavioral Health PS - Interventions: Yes: Attend Stress Management Classes Outcomes/Goals: See list Psychosocial Outcomes/Goals:: ID's personal stressors & 2 strategies to manage stress by discharge and Other Additional outcome/goals: Intervention/Plan: See List Interventions/Plan:: Assess stressors,coping strategies & signs of derpression on admission, Instruct/assist pt to develop coping & personal stress Mgt strategies, Refer to Behavioral Health if appropriate, Refer to Physician if appropriate, Instruct patient to recognize signs & symptoms of depression, Instruct patient to recog and Other additional plan/intervention Patient Health Questionnaire PHQ-9 Screening Initial Assessment: 1. Little interest or pleasure in doing things: Not at all 2. Feeling down, depressed, or hopeless: Not at all 3. Trouble falling or staying asleep, or sleeping too much: Several days 4. Feeling tired or having little energy: Several days 5. Poor appetite or overeating: Not at all 6. Feeling bad about yourself -- or that you are a failure or have let yourself or your family down: Not at all 7. Trouble concentrating on things, such as reading the newspaper or watching television: Not at all 8. Moving or speaking so slowly that other people could have noticed. Or the opposite - being so fidgety or restless that you have been moving around a lot more than usual: Not at all 9. Thoughts that you would be better off , or of hurting yourself in some way: Not at all How difficult have these problems made it for you to do your work, take care of things at home, or get along with other people?: Somewhat difficult Total Score: 2 KATHRIN-Q SV Test Statements CAD is a disease of the arteries in the heart: I Don't Know Examples of risk factors for heart disease: True Angina is chest pain or discomfort: I Don't Know The benefits of resistance training include: I Don't Know Eating more meat and dairy products: I Don't Know Anti-platelet medications such as aspirin are important: I Don't Know The only effective way to manage stress: False An exercise warm-up slowly increases heart rate: I Don't Know Prepared, processed foods usually have high sodium: True Depression is common after a heart attack: I Don't Know The statin medications lower cholesterol: I Don't Know To control blood pressure, lower the amount of sodium: True If someone gets chest discomfort during walking: I Don't Know Transfats are partially hydrogenated vegetable oils: I Don't Know Sleep apnea that is not treated increases the risk: I Don't Know To control cholesterol, one should become a vegetarian: I Don't Know Someone knows if he/she is exercising at the right level: I Don't Know Diabetes cannot be prevented with exercise & health eating: I Don't Know Stress is a large risk for heart attack: I Don't Know A diet that can help lower blood pressure is rich in: I Don't Know Total Score Total Correct Responses: 4 Self-Efficacy 6-Item Scale Initial Assessment: We would like to know how confident you are in doing certain activities. Please select your confidence level for: Fatigue Select Number: 7 Physical Discomfort or Pain Select Number: 10 Emotional Distress Select Number: 9 Other Symptoms or Health Problems Select Number: 10 Different Tasks and Activities Select Number: 10 Medication Select Number: 10 Total Score:: 9 Nutrition Survey Nutrition Survey Instructions Scoring Instructions Nutrition Survey Initial: Have you lost >10 lbs over the past 2 months without trying?: No Are you following a special diet at home for diabetes, low fat, or low salt?: Yes Are you interested in meeting with a dietitian for help understanding your diet?: No Do you eat less than 3 meals a day?: No Do you eat fatty meats (briseno, sausage, ribs, etc), fried foods, desserts, large amounts of salad dressings, margarine, butter, or cheese most days?: No Do you have food allergies? [Enter types in comment field]: No Do you eat in restaurants more than 3 times a week?: No Do you season food with salt, seasoning salt, or garlic salt?: No Do you used canned, boxed, frozen meals, or soups, seasoning packets?: No Total Score:: 1 Exercise - 30-day Assessment Physician Prescribed Exercise Modalities: Treadmill, Rower, Schwinn [place]irdyne AD-7, SciFit Stepper, SciFit Pro- II Ergometer and SciFit Lateral Community Service Officer Coordinator Exercise - 60-day Assessment Physician Prescribed Exercise Modalities: Treadmill, Rower, Schw[place] AD-7, SciFit Stepper, SciFit Pro- II Ergometer and SciFit Lateral [place] Exercise - 90-day Assessment Physician Prescribed Exercise Modalities: Treadmill, Rower, Schwinn Airdyne AD-7, SciFit Stepper, SciFit Pro- II Ergometer and SciFit Lateral [place] Exercise - Final/Discharge Physician Prescribed Exercise Modalities: Treadmill, Rower, Schwinn Airdyne AD-7, SciFit Stepper, SciFit Pro- II Ergometer and SciFit Lateral [place] Frequency: 3x/week for 12 weeks [36 sessions] Intensity: 60-80% of age predicted maximum heart rate reserve Current METSs:: 3 Target Heart Rate:: 89-112 Nutrition - 30-Day Assessment Weight Mgt (Other Care) Height: 5 ft 8 in Weight:: 225 lb BMI: 34.2 Nutrition - 60-Day Assessment Weight Mgt (Other Care) Height: 5 ft 8 in Weight:: 225 lb BMI: 34.2 Core - 30-Day Assessment Tobacco Use Years Smokin (smokes a cigar a day) Core - Final Assessment Hypertension Resting Blood Pressure:: 122/83 [employer] [employer] Hypertension Guidelines Core - 60-Day Assessment Hypertension Resting Blood Pressure:: 122/83 [employer] [employer] Hypertension Guidelines Psychosocial - 30-Day Assess Target Goals Target Goals Referral to Behavioral Health PS - Interventions: Yes: Attend Stress Management Classes Psychosocial - 60-Day Assess Target Goals Target Goals Referral to Behavioral Health PS - Interventions: Yes: Attend Stress Management Classes Psychosocial - 90-Day Assess Target Goals Target Goals Referral to Behavioral Health PS - Interventions: Yes: Attend Stress Management Classes Psychosocial - Final Assessmen Target Goals Target Goals Psychosocial Test phq-9 Severity See PHQ-9 Score: 2 Referral to Behavioral Health PS - Interventions: Yes: Attend Stress Management Classes Nutrition - 90-Day Assessment Weight Mgt (Other Care) Height: 5 ft 8 in Weight:: 225 lb BMI: 34.2 Nutrition - Final Assessment Program Goals Patient has diagnosis of Hyperlipidemia (ICD E78)?: No Weight Mgt (Other Care) Height: 5 ft 8 in Weight:: 225 lb BMI: 34.2
[2025-05-01 13:06] VITALS: BP 122/83
[2025-05-01 13:49] VITALS: BP 122/83; BMI 34.2
[2025-05-01 13:50] VITALS: BMI 34.2
--- OUTSIDE RECORDS SUMMARY | 2025-05-01 20:51 | XMS RPT_ITS | CCD ---
Author Organization [facility]iniSy[facility] Care Team Providers Care Perianesthesia Rn Name Role Phone Bisi DENTON, Dr. Howard Primary Care Provider Bisi DENTON, Dr. Howard Attending Provider Bisi DENTON, Dr. Howard Referring Provider Mike DENTON, Dr. Pearl Emergency Provider Chrissy DENTON, Dr. Sophia Roberson Admit Provider Chrissy DENTON, Dr. Sophia Roberson Other Provider Fortino DENTON, Dr. Rey Other Provider Oswaldo DENTON, Dr. Meza Attending Provider Alva DENTON, Dr. Angel Other Provider Unavailable Chrissy DENTON, Dr. Sophia Roberson Attending Provider Fortino DENTON, Dr. Rey Attending Provider Alva DENTON, Dr. Angel Attending Provider Unavaila angie Keyes MD, Dr. Vincent Attending Provider Oswaldo DENTON, Dr. Meza Other Provider [phone] Lily DENTON, Dr. Leung Attending Provider Chris MARIE-CAriane Attending Provider [phone] Chris MARIE-Ariane Cox Referring Provider [phone] Sophia Lowe Consulting Unavailable Sophia Lowe Admitting Unavailable Stanley Craig Attending Unavailable Lee Mathews Primary Care Unavailable Stanley Craig Consulting Unavailable Krissy Freitas Consulting Unavailable Krissy Freitas Attending Unavailable Madhu Bautista Attending Unavailable Derrick Chacon Consulting Unavailable Sophia Lowe Consulting Unavailable Sophia Lowe Admitting Unavailable Sophia Lowe Attending Unavailable Ranney, Christopher Primary Care Unavailable Carlton Keyes Attending Unavailable [facility], [facility] Unavailable Ranney, Christtonaer Referring Unavailable Bullney, Wellingtoner Attending Unavailable [facility], [facility] Primary [facility] Unavailable White, Sophia L Consulting Unavailable White, Sophia L Admitting Unavailable Derrick Chacon Attending Unavailable Ranney, [facility] Unavailable Krissy Freitas Consulting Unavailable Stanley Craig Consulting Unavailable [place], [facility] Primary [facility] Unavailable Krissy Freitas Attending Unavailable Elio Sky Referring Unavailable Elio Sky Attending Unavailable [place], [facility] Primary [facility] Unavailable Ranney, Christtonaer Referring Unavailable Ranney, Christtonaer Attending Unavailable [place], [facility] Primary [facility] Unavailable [facility], [facility] Unavailable Carlton Keyes Attending Unavailable Chris [facility] Attending Unavailable [facility], [facility] Referring Unavailable [facility], [facility] Unavailable Derrick Chacon Attending Unavailable Bullney, Wellingtoner Referring Unavailable Lee Mathews Attending Unavailable [place], [facility] Unavailable Ariane Perez NP Referring Unavailable Ariane Perez NP Attending [facility]available [facility] Unavailable Allergies Allergy Classification Reported Allergen(s) Allergy Type Date of Onset Reaction(s) Facility (5 sources) Sertraline Drug Allergy 11-13-2021 Other [facility] Comment on above: CP AND SOB (1 source) Sertraline Drug Allergy 04-03-2025 [facility] Medications Current Medications Medication Drug Class(es) Dates Sig (Normalized) Sig (Original) [id number] 200 actuat albuterol 0.09 mg/actuat metered dose inhaler (3 sources) beta2-Adrenergic Agonist Start: 03-20-2025 Albuterol Sulfate 90 mcg/actuation HFA aerosol inhaler Active 2 NMA INHALATION 4 TIMES DAILY NEEDED as needed for shortness of breath or wheezing March 20, 2025 12:00am apixaban 5 mg oral tablet (5 sources) Factor Xa Inhibitor Start: 03-20-2025 End: 04-03-2025 take 1 tablet by mouth twice daily Apixaban (Eliquis) 5 mg tablet Active 5 mg PO TWICE A DAY 60 April 03, 2025 2:09pm digoxin 0.125 mg oral tablet (5 sources) Cardiac Glycoside Start: 03-27-2025 End: 04-03-2025 take 1 tablet by mouth once daily Digoxin 125 mcg (0.125 mg) tablet Active 125 ug PO DAILY April 03, 2025 2:09pm docusate sodium 50 mg / sennosides, jail 8.6 mg oral tablet (3 sources) Start: 03-27-2025 Sennosides-Docusat e Sodium (Stimulant Laxative Plus) 8.6-50 mg Tablet Active 2 {tbl} PO TWICE DAILY NEEDED as needed for Constipation 0 March 27, 2025 12:00am OTC empagliflozin 10 mg oral tablet (5 sources) Sodium-Glucose Cotransporter 2 Inhibitor Start: 03-27-2025 End: 04-03-2025 take 1 tablet by mouth once daily Empagliflozin (Jardiance) 10 mg tablet Active 10 mg PO DAILY April 03, 2025 2:09pm furosemide 40 mg oral tablet (8 sources) Loop Diuretic Start: 03-27-2025 End: 04-03-2025 take 1 tablet by mouth once daily Furosemide 40 mg tablet Active 40 mg PO DAILY April 03, 2025 2:10pm Start: 03-20-2025 End: 03-27-2025 take 1 tablet by mouth twice daily as needed Furosemide 20 mg tablet Discontinued 20 mg PO TWICE DAILY NEEDED March 20, 2025 12:00am March 27, 2025 12:37pm Lactobac Acidoph-Fructooligos (1 source) Start: 07-02-2018 Lactobac Acidoph-Fructooligos Active 1 EACH PO TWICE A DAY July 02, 2018 12:00am lisinopril 5 mg oral tablet (10 sources) Angiotensin Converting Enzyme Inhibitor Start: 04-03-2025 take 1 tablet by mouth twice daily Lisinopril 5 mg tablet Active 5 mg PO TWICE A DAY April 03, 2025 2:07pm Start: 03-27-2025 End: 04-03-2025 take 1 tablet by mouth twice daily Lisinopril 2.5 mg Tablet Discontinued 2.5 mg PO TWICE A DAY 60 March 27, 2025 12:00am April 03, 2025 2:12pm Start: 06-22-2018 End: 03-27-2025 take 1 tablet by mouth once daily Lisinopril 20 mg tablet Discontinued 20 mg PO daily June 22, 2018 12:00am March 27, 2025 12:37pm metoprolol tartrate 100 mg oral tablet (8 sources) beta-Adrenergic Shaniqua Start: 03-27-2025 End: 04-03-2025 take 1 tablet by mouth twice daily Metoprolol Tartrate 100 mg tablet Active 100 mg PO TWICE A DAY April 03, 2025 2:10pm Start: 03-20-2025 End: 03-27-2025 take 1 tablet by mouth twice daily Metoprolol Tartrate 50 mg tablet Discontinued 50 mg PO TWICE A DAY March 20, 2025 12:00am March 27, 2025 12:38pm spironolactone 25 mg oral tablet (5 sources) Aldosterone Antagonist Start: 03-27-2025 End: 04-03-2025 Spironolactone 25 mg tablet Active 25 mg PO DAILY April 03, 2025 2:10pm Hold for serum potassium more than 5.0 Completed/Discontinued Medications Medication Drug Class(es) Dates Sig (Normalized) Sig (Original) acetaminophen 325 mg / HYDROcodone bitartrate 5 mg oral tablet (5 sources) Opioid Agonist Start: 11-13-2021 End: 03-20-2025 Hydrocodone-Acetami nophen 5-325 mg tablet Discontinued 1 {tbl} PO AT BEDTIME as needed for pain 08 22November 13, 2021 March 20, 2025 8:11pm Start: 11-13-2021 take 1 tablet by shawna th at bedtime Hydrocodone-Acetaminophen Active 1 TABLE T PO AT BEDTIME 08 22November 13, 2021 acetaminophen 325 mg / oxyCODONE hydrochloride 5 mg oral tablet (5 sources) Opioid Agonist Start: 07-02-2018 End: 03-20-2025 Oxycodone-Acetaminophen 1 TABLET tablet Discontinued 1 - 2 {tbl} PO 4 TIMES DAILY NEEDED as needed for Pain 06 02July 02, 2018 9:35am March 20, 2025 8:11pm Start: 07-02-2018 take 1 tablet by shawna th four times daily as needed Oxycodone-Acetaminophen Active 1 - 2 TABLET PO 4 TIMES DAILY NEEDED 06 02July 02, 2018 9:35am cephalexin 500 mg oral capsule (5 sources) Cephalosporin Antibacterial Start: 06-18-2018 End: 07-02-2018 take 1 capsule by mouth every six hours Cephalexin 500 MG capsule Discontinued 500 mg PO EVERY 6 HOURS 40 June 18, 2018 12:00am July 02, 2018 9:34am clindamycin 150 mg oral capsule (15 sources) Lincosamide Antibacterial Start: 11-13-2021 End: 03-20-2025 take 1 capsule by mouth three times daily Clindamycin Hcl 150 mg capsule Discontinued 150 mg PO THREE TIMES A DAY November 13, 2021 1:00am March 20, 2025 8:11pm Start: 07-02-2018 End: 07-25-2018 take 1 capsule by mouth three times daily Clindamycin Hcl 300 mg capsule Discontinued 300 mg PO THREE TIMES A DAY 42 14 July 11, 2018 12:04pm July 24, 2018 12:00am July 25, 2018 12:05am diazePAM 5 mg oral tablet (5 sources) Benzodiazepine Start: 07-02-2018 End: 03-20-2025 take 1 tablet by mouth twice daily as needed for muscle spasms Diazepam 5 MG tablet Discontinued 5 mg PO TWICE DAILY NEEDED as needed for Spasms July 02, 2018 9:36am March 20, 2025 8:13pm escitalopram 10 mg oral tablet (5 sources) Serotonin Reuptake Inhibitor Start: 06-22-2018 End: 07-26-2018 take 1 tablet by mouth once daily Escitalopram Oxalate (Lexapro) 10 mg tablet Discontinued 10 mg PO daily June 22, 2018 12:00am July 26, 2018 3:15pm fluticasone propionate 0.05 mg/actuat metered dose nasal spray (5 sources) Corticosteroid Start: 06-29-2018 End: 03-20-2025 Fluticasone Propionate 1 SPRAY spray,suspension Discontinued 2 NMA NASAL NEEDED as needed for Allergies June 29, 2018 12:00am March 20, 2025 8:11pm Start: 06-29-2018 Fluticasone Pr opionate Active 2 SPRAY NASAL NEEDED June 29, 2018 12:00am Lactobac Acidoph-Fructooligo s 1 EACH tablet (4 sources) Start: 07-02-2018 End: 03-20-2025 Lactobac Acidoph-Fructooligo s 1 EACH tablet Discontinued 1 NMA PO TWICE A DAY July 02, 2018 12:00am March 20, 2025 8:11pm Start: 07-02-2018 Lactobac Acido ph-Fructooligos 1 EACH tablet Active 1 NMA PO TWICE A DAY July 02, 2018 12:00am LORazepam 2 mg oral tablet (5 sources) Benzodiazepine Start: 06-22-2018 End: 03-20-2025 take 5 tablets by mouth once as needed for anxiety Lorazepam 2 mg tablet Discontinued 10 mg PO ONCE as needed for Anxiety June 22, 2018 12:00am March 20, 2025 8:11pm Start: 06-22-2018 take 10 mg by mouth once Loraz epam Active 10 MG PO ONCE June 22, 2018 12:00am naproxen sodium 220 mg oral capsule (5 sources) Nonsteroidal Anti-inflammatory Drug Start: 06-22-2018 End: 07-02-2018 take 1 capsule by mouth twice daily as needed for pain Naproxen Sodium (Aleve) 220 mg capsule Discontinued 220 mg PO TWICE A DAY as needed for Pain June 22, 2018 12:00am July 02, 2018 9:35am Problems Problem Classification Problem Date Documented Da te Episodic/Chronic Cardiac dysrhythmias (10 sources) Atrial fibrillation with rapid ventricular response; 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: [Unspecified atrial fibrillation] Onset: 04-03-2025 03-20-2025 Chronic Congestive heart failure; nonhypertensive (9 sources) Acute systolic heart failure; 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: [Acute systolic (congestive) heart failure] Onset: 03-21-2025 03-06-2025 Chronic Other inflammatory condition of skin (1 source) Psoriasis vulgaris; 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: [Psoriasis vulgaris] Onset: 05-10-2024 Chronic Other lower respiratory disease (6 sources) History of chronic obstructive airway disease; 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: [Personal history of other diseases of the respiratory system] 03-20-2025 Episodic Other lower respiratory disease (8 sources) Dyspnea; 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: [Dyspnea, unspecified] 03-20-2025 Episodic Other lower respiratory disease (2 sources) Dyspnea, unspecified; 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: [Dyspnea, unspecified] Onset: 04-08-2025 Episodic Other lower respiratory disease (1 source) Other forms of dyspnea; 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: [Other forms of dyspnea] Onset: 04-20-2025 Episodic Other lower respiratory disease (1 source) Personal history of other diseases of the respiratory system; 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: [Personal history of other diseases of the respiratory system] Onset: 04-20-2025 Episodic Other screening for suspected conditions (not mental disorders or infectious disease) (8 sources) Left ventricular systolic dysfunction; 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: [Abnormal findings on diagnostic imaging of heart and coronary circulation] Onset: 04-20-2025 03-24-2025 Episodic Other skin disorders (1 source) Finding of head and neck region; 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: [Localized swelling, mass and lump, head] 07-08-2018 Episodic Other skin disorders (4 sources) Finding of head region; 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: [Localized swelling, mass and lump, head] 06-28-2018 Episodic Comment on above: 3 cm infected soft t issue mass right melolabial fold by commissure of lip Other upper respiratory disease (5 sources) Bleeding from nose; 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: [Epistaxis] 11-21-2021 Episodic Residual codes; unclassified (2 sources) Hypersomnia; 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: [Hypersomnia, unspecified] 04-03-2025 Chronic Residual codes; unclassified (1 source) Hypersomnia, unspecified; 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: [Hypersomnia, unspecified] Onset: 04-03-2025 Chronic Residual codes; unclassified (5 sources) Family history of malignant neoplasm of skin; 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: [Family history of malignant neoplasm of other organs or systems] 07-08-2018 Episodic Residual codes; unclassified (1 source) Edema, unspecified; 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: [Edema, unspecified] Onset: 03-06-2025 Episodic Skin and subcutaneous tissue infections (10 sources) Abscess of face; 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: [Cutaneous abscess of face] 07-20-2018 Episodic Comment on above: 1.7 cm infected soft tissue mass right melolabial fold by commissure of lip 3 cm infected soft t issue mass right melolabial fold by commissure of lip Substance-related disorders (9 sources) Smoker; 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: [Nicotine dependence, unspecified, uncomplicated] Onset: 04-20-2025 07-08-2018 Chronic Unclassified (3 sources) R93.1 - Abnormal findings on diagnostic imaging of heart and coronary circulation,I48.91 - Unspecified atrial fibrillation,R06.00 - Dyspnea, unspecified,Z87.09 - Personal history of other diseases of the respiratory system,F17.200 - Nicotine dependence, unspecified, uncomplicated Unclassified (3 sources) Follow Dr. Madhu Bautista in 1 week to 10 days. Results Test Name Value Interpretation Reference Range Facility 12 [place] [facility] [place] 12 Lead EKG performed by [facility] [id number] [place] [address] 12 Lead EKG [place] [facility] [place] 04/03/25 1418 MR#: [id number] Acct: [id number] Name: KELVIN HERNANDEZ Jr. Rep #: [id number] : 1955 69 From: Ariane Perez [facility] Attending Dr: Ariane Perez, [facility] Status: DEP A NIMESH Ordering Dr: Ariane Perez [facility] Date: 04/03/25 [place] [facility] [place] Sex: M C Admitted: BMS/12 Lead EKG performed [place] [facility] [place] ECG Report Interpretation ------Atrial fibrillation -Frequent pvcs -ventricular bigeminy -Incomplete right bundle branch block. - Nonspecific T-abnormality. ABNORMAL Electronically signed on 04/09/2025 at 09:42 by Carlton Keyes Software Version [id number] 04/09/25 0947 Date Ariane Perez NP [facility] CC: Dr. Lee Mathews MD Date Dictated: 04/03/251417 Date Transcribed: 04/03/251417 [employer] Consultant: LAMAR Signed Normal [facility] Absolute lymphocyte countOrd ered By: Ariane Perez on 04-03-2025 Lymphocytes Auto (Unsp spec) [#/Vol] 1.76 10*3/uL 0.83-4.51 [facility] Absolute neutrophil countOrd ered By: Ariane Perez on 04-03-2025 Neutrophils (Bld) [#/Vol] 4.6 10*3/uL 2.0-7.7 [facility] Anion gap in Serum or Plasma Ordered By: Ariane Perez on 04-03-2025 Anion gap [Moles/Vol] 8 mmol/L 04-03 [facility] Automated lymphocyte count a s percentage of total leukocytesOrdered By: Ariane Perez on 04-03-2025 Lymphocytes/100 WBC Auto (Unsp spec) 24.6 % [facility] BUN/creatinine ratioOrdered By: Ariane Perez on 04-03-2025 Urea nitrogen/Creatinine [Mass ratio] 24.2 mg/mg High - [facility] Basic Metabolic Profile (BMP )on 04-03-2025 BUN/CRE 24.2 RATIO High - [facility] Comment on above: Performed By: #### L 300.4310, L300.3900 #### [facility] [address] [place], [address] Calcium [Mass/Vol] 8.0 mg/dL Normal 7.6-11.0 [facility] Comment on above: Performed By: #### L 300.4310, L300.3900 #### [facility] [address] [place], [address] Chloride [Moles/Vol] 98 mmol/L Normal 98-108 [facility] Comment on above: Performed By: #### L 300.4310, L300.3900 #### [facility] [address] [place], [address] CO2 [Moles/Vol] 32.9 mmol/L High 21.0-32.0 [facility] Comment on above: Performed By: #### L 300.4310, L300.3900 #### [facility] [address] [place], [address] Creatinine [Mass/Vol] 1.18 mg/dL Normal 0.70-1.20 [facility] Comment on above: Performed By: #### L 300.4310, L300.3900 #### [facility] [address] [place], [address] GAP 8 Normal -15 [facility] Comment on above: Performed By: #### L 300.4310, L300.3900 #### [facility] [address] [place], [address] GFR/1.73 sq M.predicted among non-blacks MDRD (S/P/Bld) [Vol rate/Area] 66 mL/min/{1.73_m2} Normal >60 [facility] Comment on above: Result Comment: mL/m in/1.73m2 CKD-EPI Creatinine Equation (2020) Performed By: #### L 300.4310, L300.3900 #### [facility] [address] [place], [address] Glucose [Mass/Vol] 82 mg/dL Normal 70-99 [facility] Comment on above: Performed By: #### L 300.4310, L300.3900 #### [facility] [address] [place], [address] Potassium [Moles/Vol] 5.1 mmol/L Normal 3.3-5.1 [facility] Comment on above: Performed By: #### L 300.4310, L300.3900 #### [facility] [address] [place], [address] Sodium [Moles/Vol] 138 mmol/L Normal 133-145 [facility] Comment on above: Performed By: #### L 300.4310, L300.3900 #### [facility] [address] [place], [address] Urea nitrogen [Mass/Vol] 29 mg/dL High 4-19 [facility] Comment on above: Performed By: #### L 300.4310, L300.3900 #### [facility] [address] [place], [address] Basophil percentageOrdered B y: Ariane Perez on 04-03-2025 Basophils/100 WBC (Bld) 0.4 % 0-1 [facility] CBC W/Diff, Automatedon 03-20 PLT EST MOD DEC Normal ADEQ [facility] Comment on above: Performed By: #### L 300.4310, L300.3900 #### [facility] [address] [place], [address] Carbon dioxide, total [Moles /volume] in Central venous bloodOrdered By: Ariane Perez on 04-03-2025 CO2 [Moles/Vol] 32.9 mmol/L High 21.0-32.0 [facility] Cardiology Visit Reporton Cardiology Visit Report [facility] [address] [place] [address] OFFICE VISIT Date of Service: 04/03/25 MR#: [id number] Acct: [id number] Name: KELVIN HERNANDEZ Jr. Rep #: [id number] : 1955 Provider: VERONICA brown Age/Sex: 69/M [place] [facility] [place] Status: Signed HPI HPI History of Present Illness Surgical H P: Yes Details: This is a 69-year-old male, who presents today for cardiovascular hospital follow-up visit. Patient presented to the emergency room on 03/20/2025 with complaints of shortness of breath, bilateral leg swelling. His BNP was elevated at 8957. His EKG demonstrated A-fib with RVR. He was admitted for further evaluation. He did undergo an echocardiogram on 03/21/2025 which demonstrated a decreased ejection fraction of 10 to 15%, moderately dilated right ventricle, and mildly enlarged left and right atrium. He underwent a cardiac catheterization on 03/24/2025 which demonstrated normal coronary arteries. He was started on guideline directed medical therapy, and discharged home to follow-up with cardiology. From a cardiac standpoint, the patient is doing well. He denies any palpitations, chest pain, pressure or heaviness. He does have occasional SOB with exertion, and stress. He does acknowledge orthopnea. He denies PND. He does not have bleeding issues; no blood in urine, stool, or nosebleeds. He does acknowledge a decrease in energy level. He denies myalgias, or claudication. He does acknowledge bilateral lower extremity edema, and weight gain. He denies lightheadedness, dizziness, syncopal or near syncopal episodes, and headaches. STOP-BANG Assessment: 1. Do you snore? Yes 2. Are you frequently tired during the day? Yes 3. Have you been observed gasping or choking while asleep? Yes 4. Do you have high blood pressure? No 5. BMI - greater than 35kg/m2? Yes 6. Age - over 50 years old? Yes 7. Neck Circumference - greater than 37 cm for females or 40 cm for males? 8. Gender - male? Yes Total STOP-BANG score = 6 which indicates at risk for obstructive sleep apnea (yes to 3 or more questions = high risk of sleep apnea). 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 Is patient in pain?: No Allergies sertraline (From Zoloft) Allergy (Verified 04/03/25 13:56) Other Medications ???Medication ???Instructions ???Recorded ???Confirmed ???Type albuterol sulfate 90 mcg/actuation 2 puff inhalation 4X/DAY PRN PRN 03/20/25 04/03/25 History aerosol inhaler shortness of breath or wheezing sennosides 8.6 mg-docusate sodium 2 tab PO BID PRN PRN Constipation 03/27/25 04/03/25 Rx 50 mg tablet (Stimulant Laxative #0 tabs Plus) apixaban 5 mg tablet (Eliquis) 5 mg PO BID blood thinner #60 tabs 04/03/25 04/03/25 Rx digoxin 125 mcg (0.125 mg) tablet 125 mcg PO DAILY #30 tabs 5 04/03/25 Rx empagliflozin 10 mg tablet 10 mg PO DAILY #30 tabs 04/03/25 0 04/03/25 Rx (Jardiance) furosemide 40 mg tablet 40 mg PO DAILY #30 tabs 04/03/25 0 04/03/25 Rx lisinopril 5 mg tablet 5 mg PO BID #60 tabs 04/03/2503/20 Rx metoprolol tartrate 100 mg tablet 100 mg PO BID #60 tabs 04/03/25 0 04/03/25 Rx spironolactone 25 mg tablet 25 mg PO DAILY #30 tabs 04/03/25 0 04/03/25 Rx Have you fallen in the past year?: No PFSH Medical History PAF (paroxysmal atrial fibrillation) CKD (chronic kidney disease), stage II Thrombocytopenia COPD (chronic obstructive pulmonary disease) Morbid obesity HLD (hyperlipidemia) HTN (hypertension) Tobacco use Anxiety and depression Cancer Surgical History History of appendectomy Family History Father History of blood clots Lupus Bowel disease Colon cancer Skin cancer CVA (cerebral vascular accident) Mother Hypertension Social History household members: spouse Smoking Status: Current some day smoker tobacco type: cigarettes alcohol intake: never substance use type: does not use additional social history: DOES USE ASPIRIN ROS Const Const: Positive for fatigue and weakness; Negative for headache(s) or frequent falls Eyes Eyes: Negative for blurry vision ENT ENT: Negative for headache(s), dizziness or Nosebleed/epistaxis Cardio Chest Pain: No Palpitations: No Edema: Bilateral Muscle aches with walking: None Resp Respiratory: Positive f (more content not included)... Normal [facility] Chloride assayOrdered By: Shiv Perez on 04-03-2025 Chloride [Moles/Vol] 98 mmol/L 98-108 [facility] Eosinophil percentageOrdered By: Ariane Perez on 04-03-2025 Eosinophils/100 WBC (Bld) 0.7 % 0-5 [facility] Erythrocyte distribution wid th ratioOrdered By: Ariane Perez on 04-03-2025 Erythrocyte distribution width (RBC) [Ratio] 16.4 % High 11.6-14.6 [facility] Erythrocyte distribution wid th standard deviationOrdered By: Ariane Perez on 04-03-2025 Erythrocyte distribution width (RBC) [Ratio] 58.1 fl High 35.1-43.9 [facility] Glomerular filtration rate ( GFR) estimation/1.73 sq m using serum, plasma, or whole bOrdered By: Ariane Perez on 04-03-2025 GFR/1.73 sq M.predicted among non-blacks MDRD (S/P/Bld) [Vol rate/Area] 66 mL/min/{1.73_m2} >60 [facility] Comment on above: mL/min/1.73m2 CKD-EP I Creatinine Equation (2020) Hematocrit Auto (Bld) [Volum e fraction]Ordered By: Ariane Perez on 04-03-2025 Hematocrit (Bld) [Volume fraction] 53.0 % 40-54 [facility] Hemoglobin measurementOrdere d By: Ariane Perez on 04-03-2025 Hemoglobin (Bld) [Mass/Vol] 17.0 g/dL High 13.0-16.5 [facility] Immature granulocytes/100 WB C Auto (Bld)Ordered By: Ariane Perez on 04-03-2025 Immature granulocytes/100 WBC (Bld) 0.400 % 0.0-0.9 [facility] Comment on above: IG% - Immature Granu locytes (promyelocytes, myelocytes and metamyelocytes) > 1% indicates that a LEFT SHIFT is Present. L503.7505on 04-03-2025 Natriuretic peptide B (Bld) [Mass/Vol] 9050 pg/mL High <=900 [facility] Comment on above: Result Comment: Hear t Failure Unlikely: < 300 pg/mL Heart Failure Likely < 50 Years: > 450 pg/mL 50-75 Years: > 900 pg/mL >75 Years: > 1800 pg/mL Performed By: #### L 300.4310, L300.3900 #### [facility] [address] [place], [place] [address], [place], [address] MCV (mean corpuscular volume ) determinationOrdered By: Ariane Perez on 04-03-2025 MCV (RBC) [Entitic vol] 98.3 fL High 80-94 [facility] Mean corpuscular hemoglobin (MCH) determinationOrdered By: Ariane Perez on 04-03-2025 MCH (RBC) [Entitic mass] 31.5 pg 27.0-32.0 [facility] Mean corpuscular hemoglobin concentration (MCHC) determinationOrdered By: Ariane Perez on 04-03-2025 MCHC (RBC) [Mass/Vol] 32.1 g/dL 32-36 [facility] Mean platelet volume determi nationOrdered By: Ariane Perez on 04-03-2025 Platelet mean volume (Bld) [Entitic vol] 11.1 fL 6.2-12.0 [facility] Monocyte percentageOrdered B y: Ariane Perez on 04-03-2025 Monocytes/100 WBC (Bld) 9.2 % 0-10 [facility] Natriuretic peptide.B prohor geraldine N-Terminal [Mass/volume] in Serum or PlasmaOrdered By: Ariane Perez on 04-03-2025 Natriuretic peptide.B prohormone N-Terminal [Mass/Vol] 9050 pg/mL High <900 [facility] Comment on above: Heart Failure Unlike ly: < 300 pg/mLHeart Failure Likely< 50 Years: > 450 pg/mL50-75 Years: > 900 pg/mL>75 Years: > 1800 pg/mL Neutrophil percentageOrdered By: Ariane Perez on 04-03-2025 Neutrophils/100 WBC (Bld) 64.7 % 47-70 [facility] Nucleated red blood cell per centageOrdered By: Ariane Perez on 04-03-2025 Nucleated RBC/100 WBC (Bld) [Ratio] 0 % 0-5 [facility] Platelet countOrdered By: Shiv Perez on 04-03-2025 Platelets (Bld) [#/Vol] 95 10*3/uL Low 150-450 [facility] Platelet estimateOrdered By: Ariane Perez on 04-03-2025 Platelets LM Ql (Bld) MOD DEC ADEQ [facility] Potassium measurement (mass/ volume)Ordered By: Ariane Perez on 04-03-2025 Potassium (Unsp spec) [Mass/Vol] 5.1 mmol/L 3.3-5.1 [facility] RBC Auto (Bld) [#/Vol]Ordere d By: Ariane Perez on 04-03-2025 RBC (Bld) [#/Vol] 5.39 10*6/uL 4.6-6.2 [facility] Serum creatinine measurement (mass/volume)Ordered By: Ariane Perez on 04-03-2025 Creatinine [Mass/Vol] 1.18 mg/dL 0.70-1.20 [facility] Serum glucose measurement (m ass/volume)Ordered By: Ariane Perez on 04-03-2025 Glucose [Mass/Vol] 82 mg/dL 70-99 [facility] Serum or plasma calcium jennifer urement (mass/volume)Ordered By: Ariane Perez on 04-03-2025 Calcium [Mass/Vol] 8.0 mg/dL 7.6-11.0 [facility] Serum or plasma urea nitroge n measurement (mass/volume)Ordered By: Ariane Perez on 04-03-2025 Urea nitrogen [Mass/Vol] 29 mg/dL High 03-08 [facility] Sodium levelOrdered By: Lizzy Perez on 04-03-2025 Sodium [Moles/Vol] 138 mmol/L 133-145 [facility] White blood cell (WBC) count Ordered By: Ariane Perez on 04-03-2025 WBC (Bld) [#/Vol] 7.2 10*3/uL 4.4-11.0 [facility] Anion gap in Serum or Plasma Ordered By: Derrick Chacon on 03-27-2025 Anion gap [Moles/Vol] 8 mmol/L 04-03 [facility] BUN/creatinine ratioOrdered By: Derrick Chacon on 03-27-2025 Urea nitrogen/Creatinine [Mass ratio] 22.0 mg/mg High 09-08 [facility] Basic Metabolic Profile (BMP )on 03-27-2025 BUN/CRE 22.0 RATIO High 09-08 [facility] Comment on above: Performed By: #### L 300.4310, L300.3900 #### [facility] [address] [place], [address] Calcium [Mass/Vol] 8.2 mg/dL Normal 7.6-11.0 [facility] Comment on above: Performed By: #### L 300.4310, L300.3900 #### [facility] [address] [place], [address] Chloride [Moles/Vol] 98 mmol/L Normal 98-108 [facility] Comment on above: Performed By: #### L 300.4310, L300.3900 #### [facility] [address] [place], [address] CO2 [Moles/Vol] 35.1 mmol/L High 21.0-32.0 [facility] Comment on above: Performed By: #### L 300.4310, L300.3900 #### [facility] [address] [place], [address] Creatinine [Mass/Vol] 1.49 mg/dL High 0.70-1.20 [facility] Comment on above: Performed By: #### L 300.4310, L300.3900 #### [facility] [address] [place], [address] ECRCL 54.90 ml/min Normal 50-250 [facility] Comment on above: Performed By: #### L 300.4310, L300.3900 #### [facility] [address] [place], [address] GAP 8 Normal 5-15 [facility] Comment on above: Performed By: #### L 300.4310, L300.3900 #### [facility] [address] [place], [address] GFR/1.73 sq M.predicted among non-blacks MDRD (S/P/Bld) [Vol rate/Area] 50 mL/min/{1.73_m2} Low >60 [facility] Comment on above: Result Comment: mL/m in/1.73m2 CKD-EPI Creatinine Equation (2020) Performed By: #### L 300.4310, L300.3900 #### [facility] [address] [place], [address] Glucose [Mass/Vol] 94 mg/dL Normal 70-99 [facility] Comment on above: Performed By: #### L 300.4310, L300.3900 #### [facility] [address] [place], [address] Potassium [Moles/Vol] 3.9 mmol/L Normal 3.3-5.1 [facility] Comment on above: Performed By: #### L 300.4310, L300.3900 #### [facility] [address] [place], [address] Sodium [Moles/Vol] 141 mmol/L Normal 133-145 [facility] Comment on above: Performed By: #### L 300.4310, L300.3900 #### [facility] [address] [place], [address] Urea nitrogen [Mass/Vol] 33 mg/dL High 4-19 [facility] Comment on above: Performed By: #### L 300.4310, L300.3900 #### [facility] [address] [place], [address] Carbon dioxide, total [Moles /volume] in Central venous bloodOrdered By: Derrick Chacon on 03-27-2025 CO2 [Moles/Vol] 35.1 mmol/L High 21.0-32.0 [facility] Chloride assayOrdered By: Denis Chacon on 03-27-2025 Chloride [Moles/Vol] 98 mmol/L 98-108 [facility] Discharge Instructionon 05-0 Discharge Instruction [facility] Medical Records Department [address] [place] [address] Instructions for Home/Discharge Instructions 03/27/25 1012 MR#: [id number] Acct: [id number] Name: KELVIN HERNANDEZ JrSavita Rep #: [id number] : 1955 69 From: Derrick Chacon MD PCP: Dr. Lee Mathews MD Status:ADM IN Discharge Instructions Diet Discharge Diet: Low fat / Low cholesterol, 8 Cup Fluid Restriction and 2000 mg Sodium Diet DC O2, CPAP, BIPAP needs Home O2 Discharge instructions: No Dressing / Incision Discharge Activity: Return to Normal Activity Weight Bearing Status: Weight bearing as tolerated Dressing / Incision Call your doctor if you observe: Fever of 101 or Higher, Coldness, Increased Pain, Numbness or Tingling, Change in Color, Inability to urinate, Inability to have a bowel movement, Shortness of breath, Dizziness, Fainting spells, Swelling in the ankles, Chest pain, Prolonged hiccupping, Increased palpitations (irregular heartbeat) and Calf discomfort Follow Up Care When: IN 2 WEEKS Test Results: Test results from this visit will be discussed in further detail at your follow-up appointment, if applicable. 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% Attending Provider: Derrick Chacon Primary Care Provider: Lee Mathews Consulting Providers: Sophia Lowe; Krissy Freitas; Stanley Craig Discharge Orders/Prescriptions Prescriptions: New furosemide 40 mg Tablet 40 mg PO DAILY 30 Days Qty: 30 2RF metoprolol tartrate 100 mg Tablet 100 mg PO BID 30 Days Qty: 60 1RF sennosides-docusate sodium [Stimulant Laxative Plus] 8.6-50 mg Tablet 2 tab PO BID PRN PRN (Reason: Constipation) Qty: 0 0RF Rx Instructions: OTC digoxin 125 mcg (0.125 mg) Tablet 125 mcg PO DAILY 30 Days Qty: 30 0RF lisinopril 2.5 mg Tablet 2.5 mg PO BID 30 Days Qty: 60 0RF Jardiance 10 mg Tablet 10 mg PO DAILY 30 Days Qty: 30 0RF spironolactone 25 mg Tablet 25 mg PO DAILY 30 Days Qty: 30 0RF Rx Instructions: Hold for serum potassium more than 5.0 Continued Eliquis 5 mg tablet 5 mg PO BID albuterol sulfate 90 mcg/actuation HFA aerosol inhaler 2 puff INHALATION 4X/DAY PRN PRN (Reason: shortness of breath or wheezing) Discontinued lisinopril 20 mg tablet 20 mg PO QDAY furosemide 20 mg tablet 20 mg PO BID PRN metoprolol tartrate 50 mg tablet 50 mg PO BID Referrals / Follow Up: Lee Mathews MD [Primary Care Provider] - Madhu Bautista MD [Med Staff - Active Staff] - In 1 Week (Follow Dr. Madhu Bautista in 1 week to 10 days.) Disposition Disposition (needs filled in before D/C Order can be placed): Home, Self Care 03/27/25 1241 Derrick Chacon MD CC: Dr. Sophia Lowe MD; Dr. Lee Mathews MD; Dr. Stanley Craig MD; Dr. Krissy Freitas MD Signed Normal [facility] Glomerular filtration rate ( GFR) estimation/1.73 sq m using serum, plasma, or whole bOrdered By: Derrick Chacon on 03-27-2025 GFR/1.73 sq M.predicted among non-blacks MDRD (S/P/Bld) [Vol rate/Area] 50 mL/min/{1.73_m2} Low >60 [facility] Comment on above: mL/min/1.73m2 CKD-EP I Creatinine Equation (2020) Potassium measurement (mass/ volume)Ordered By: Derrick Chacon on 03-27-2025 Potassium (Unsp spec) [Mass/Vol] 3.9 mmol/L 3.3-5.1 [facility] Serum creatinine measurement (mass/volume)Ordered By: Derrick Chacon on 03-27-2025 Creatinine [Mass/Vol] 1.49 mg/dL High 0.70-1.20 [facility] Serum glucose measurement (m ass/volume)Ordered By: Derrick Chacon on 03-27-2025 Glucose [Mass/Vol] 94 mg/dL 70-99 [facility] Serum or plasma calcium jennifer urement (mass/volume)Ordered By: Derrick Chacon on 03-27-2025 Calcium [Mass/Vol] 8.2 mg/dL 7.6-11.0 [facility] Serum or plasma urea nitroge n measurement (mass/volume)Ordered By: Derrick Chacon on 03-27-2025 Urea nitrogen [Mass/Vol] 33 mg/dL High 4-19 [facility] Sodium levelOrdered By: Shayna Chacon on 03-27-2025 Sodium [Moles/Vol] 141 mmol/L 133-145 [facility] Basic Metabolic Profile (BMP )on 03-26-2025 BUN/CRE 23.4 RATIO High 10-20 [facility] Comment on above: Performed By: #### L 300.4310, L300.3900 #### [facility] [address] [place], [address] Calcium [Mass/Vol] 8.1 mg/dL Normal 7.6-11.0 [facility] Comment on above: Performed By: #### L 300.4310, L300.3900 #### [facility] [address] [place], [address] Chloride [Moles/Vol] 97 mmol/L Low 98-108 [facility] Comment on above: Performed By: #### L 300.4310, L300.3900 #### [facility] [address] [place], [address] CO2 [Moles/Vol] 31.4 mmol/L Normal 21.0-32.0 [facility] Comment on above: Performed By: #### L 300.4310, L300.3900 #### [facility] [address] [place], [address] Creatinine [Mass/Vol] 1.35 mg/dL High 0.70-1.20 [facility] Comment on above: Performed By: #### L 300.4310, L300.3900 #### [facility] [address] [place], [address] ECRCL 60.85 ml/min Normal 50-250 [facility] Comment on above: Performed By: #### L 300.4310, L300.3900 #### [facility] [address] [place], [address] GAP 10 Normal 5-15 [facility] Comment on above: Performed By: #### L 300.4310, L300.3900 #### [facility] [address] [place], [address] GFR/1.73 sq M.predicted among non-blacks MDRD (S/P/Bld) [Vol rate/Area] 56 mL/min/{1.73_m2} Low >60 [facility] Comment on above: Result Comment: mL/m in/1.73m2 CKD-EPI Creatinine Equation (2020) Performed By: #### L 300.4310, L300.3900 #### [facility] [address] [place], [address] Glucose [Mass/Vol] 104 mg/dL High 70-99 [facility] Comment on above: Performed By: #### L 300.4310, L300.3900 #### [facility] [address] [place], [address] Potassium [Moles/Vol] 3.7 mmol/L Normal 3.3-5.1 [facility] Comment on above: Performed By: #### L 300.4310, L300.3900 #### [facility] [address] [place], [address] Sodium [Moles/Vol] 139 mmol/L Normal 133-145 [facility] Comment on above: Performed By: #### L 300.4310, L300.3900 #### [facility] [address] [place], [address] Urea nitrogen [Mass/Vol] 32 mg/dL High 4-19 [facility] Comment on above: Performed By: #### L 300.4310, L300.3900 #### [facility] [address] [place], [address] L503.7505on 03-26-2025 Natriuretic peptide B (Bld) [Mass/Vol] 48688 pg/mL High <=900 [facility] Comment on above: Result Comment: Hear t Failure Unlikely: < 300 pg/mL Heart Failure Likely < 50 Years: > 450 pg/mL 50-75 Years: > 900 pg/mL >75 Years: > 1800 pg/mL Performed By: #### L 503.7505 #### [facility] [address] [place], [address] Magnesiumon 03-26-2025 Magnesium [Mass/Vol] 2.2 mg/dL Normal 1.5-2.2 [facility] Comment on above: Performed By: #### L 499.0043 #### [facility] [address] [place], [place], [id number] ([address] Magnesium measurement (mass/ volume)Ordered By: Stanley Maradiaga on 03-26-2025 Magnesium (Unsp spec) [Mass/Vol] 2.2 mg/dL 1.5-2.2 [facility] Natriuretic peptide.B prohor geraldine N-Terminal [Mass/volume] in Serum or PlasmaOrdered By: Madhu Bautista on 03-26-2025 Natriuretic peptide.B prohormone N-Terminal [Mass/Vol] 13201 pg/mL High <900 [facility] Comment on above: Heart Failure Unlike ly: < 300 pg/mLHeart Failure Likely< 50 Years: > 450 pg/mL50-75 Years: > 900 pg/mL>75 Years: > 1800 pg/mL Basic Metabolic Profile (BMP )on 03-25-2025 BUN/CRE 22.7 RATIO High 10-20 [facility] Comment on above: Performed By: #### L 499.0043 #### [facility] [address] [place], [address] Calcium [Mass/Vol] 8.3 mg/dL Normal 7.6-11.0 [facility] Comment on above: Performed By: #### L 499.0043 #### [facility] [address] [place], [address] Chloride [Moles/Vol] 97 mmol/L Low 98-108 [facility] Comment on above: Performed By: #### L 499.0043 #### [facility] [address] [place], [address] CO2 [Moles/Vol] 32.8 mmol/L High 21.0-32.0 [facility] Comment on above: Performed By: #### L 499.0043 #### [facility] [address] [place], [address] Creatinine [Mass/Vol] 1.39 mg/dL High 0.70-1.20 [facility] Comment on above: Performed By: #### L 499.0043 #### [facility] [address] [place], [address] ECRCL 60.26 ml/min Normal 50-250 [facility] Comment on above: Performed By: #### L 499.0043 #### [facility] [address] [place], [address] GAP 10 Normal 5-15 [facility] Comment on above: Performed By: #### L 499.0043 #### [facility] [address] [place], [address] GFR/1.73 sq M.predicted among non-blacks MDRD (S/P/Bld) [Vol rate/Area] 54 mL/min/{1.73_m2} Low >60 [facility] Comment on above: Result Comment: mL/m in/1.73m2 CKD-EPI Creatinine Equation (2020) Performed By: #### L 499.0043 #### [facility] [address] [place], [address] Glucose [Mass/Vol] 113 mg/dL High 70-99 [facility] Comment on above: Performed By: #### L 499.0043 #### [facility] [address] [place], [address] Potassium [Moles/Vol] 4.1 mmol/L Normal 3.3-5.1 [facility] Comment on above: Result Comment: Hemo lysis present, Results??could be affected. ?? Performed By: #### L 499.0043 #### [facility] [address] [place], [address] Sodium [Moles/Vol] 140 mmol/L Normal 133-145 [facility] Comment on above: Performed By: #### L 499.0043 #### [facility] [address] [place], [address] Urea nitrogen [Mass/Vol] 32 mg/dL High 4-19 [facility] Comment on above: Performed By: #### L 499.0043 #### [facility] [address] [place], [address] Absolute lymphocyte countOrd ered By: Stanley Craig on 03-24-2025 Lymphocytes Auto (Unsp spec) [#/Vol] 2.32 10*3/uL 0.83-4.51 [facility] Absolute neutrophil countOrd ered By: Stanley Cragi on 03-24-2025 Neutrophils (Bld) [#/Vol] 4.2 10*3/uL 2.0-7.7 [facility] Activated partial thrombopla stin time (aPTT) in platelet poor plasma by coagulation aOrdered By: Krissy Freitas on 03-24-2025 aPTT Coag (PPP) [Time] 34.6 s 24.1-36.2 [facility] Automated lymphocyte count a s percentage of total leukocytesOrdered By: Stanley Craig on 03-24-2025 Lymphocytes/100 WBC Auto (Unsp spec) 31.6 % 19-41 [facility] Basic Metabolic Profile (BMP )on 03-24-2025 BUN/CRE 20.5 RATIO High 10-20 [facility] Comment on above: Performed By: #### L 500.3400, L500.2500, L100.0100, L501.5200 ####[facility] [address] [place], [address] Calcium [Mass/Vol] 8.2 mg/dL Normal 7.6-11.0 [facility] Comment on above: Performed By: #### L 500.3400, L500.2500, L100.0100, L501.5200 ####[facility] [address] [place], [address] Chloride [Moles/Vol] 97 mmol/L Low 98-108 [facility] Comment on above: Performed By: #### L 500.3400, L500.2500, L100.0100, L501.5200 ####[facility] [address] [place], [address] CO2 [Moles/Vol] 29.1 mmol/L Normal 21.0-32.0 [facility] Comment on above: Performed By: #### L 500.3400, L500.2500, L100.0100, L501.5200 ####[facility] [address] [place], [address] Creatinine [Mass/Vol] 1.26 mg/dL High 0.70-1.20 [facility] Comment on above: Performed By: #### L 500.3400, L500.2500, L100.0100, L501.5200 ####[facility] [address] [place], [address] ECRCL 66.51 ml/min Normal 50-250 [facility] Comment on above: Performed By: #### L 500.3400, L500.2500, L100.0100, L501.5200 ####[facility] [address] [place], [address] GAP 12 Normal 5-15 [facility] Comment on above: Performed By: #### L 500.3400, L500.2500, L100.0100, L501.5200 ####[facility] [address] [place], [address] GFR/1.73 sq M.predicted among non-blacks MDRD (S/P/Bld) [Vol rate/Area] 61 mL/min/{1.73_m2} Normal >60 [facility] Comment on above: Result Comment: mL/m in/1.73m2 CKD-EPI Creatinine Equation (2020) Performed By: #### L 500.3400, L500.2500, L100.0100, L501.5200 ####[facility] [address] [place], [address] Glucose [Mass/Vol] 106 mg/dL High 70-99 [facility] Comment on above: Performed By: #### L 500.3400, L500.2500, L100.0100, L501.5200 ####[facility] [address] [place], [address] Potassium [Moles/Vol] 3.7 mmol/L Normal 3.3-5.1 [facility] Comment on above: Performed By: #### L 500.3400, L500.2500, L100.0100, L501.5200 ####[facility] [address] [place], [address] Sodium [Moles/Vol] 138 mmol/L Normal 133-145 [facility] Comment on above: Performed By: #### L 500.3400, L500.2500, L100.0100, L501.5200 ####[facility] [address] [place], [address] Urea nitrogen [Mass/Vol] 26 mg/dL High 4-19 [facility] Comment on above: Performed By: #### L 500.3400, L500.2500, L100.0100, L501.5200 ####[facility] [address] [place], [address] Basophil percentageOrdered B y: Stanley Craig on 03-24-2025 Basophils/100 WBC (Bld) 0.4 % 0-1 [facility] Bilirubin directOrdered By: Stanley Craig on 03-24-2025 Bilirubin.direct [Mass/Vol] 0.70 mg/dL High 0.00-0.30 [facility] Bilirubin, totalOrdered By: Stanley Craig on 03-24-2025 Bilirubin [Mass/Vol] 1.30 mg/dL 0.00-1.30 [facility] CBC W/Diff, Automatedon 05-0 5-2025 Absolute Lymph 2.32 X10 3/uL Normal 0.83-4.51 [facility] Comment on above: Performed By: #### L 500.3400, L500.2500, L100.0100, L501.5200 ####[facility] [address] [place], [address] Absolute Neut 4.2 X10 3/uL Normal 2.0-7.7 [facility] Comment on above: Performed By: #### L 500.3400, L500.2500, L100.0100, L501.5200 ####[facility] [address] [place], [address] Basophils/100 WBC (Bld) 0.4 % Normal 0-1 [facility] Comment on above: Performed By: #### L 500.3400, L500.2500, L100.0100, L501.5200 ####[facility] [address] [place], [address] Eosinophils/100 WBC (Bld) 0.7 % Normal 0-5 [facility] Comment on above: Performed By: #### L 500.3400, L500.2500, L100.0100, L501.5200 ####[facility] [address] [place], [address] Erythrocyte distribution width (RBC) [Ratio] 15.5 % High 11.6-14.6 [facility] Comment on above: Performed By: #### L 500.3400, L500.2500, L100.0100, L501.5200 ####[facility] [address] [place], [address] Hematocrit (Bld) [Volume fraction] 45.4 % Normal 40-54 [facility] Comment on above: Performed By: #### L 500.3400, L500.2500, L100.0100, L501.5200 ####[facility] [address] [place], [address] Hemoglobin (Bld) [Mass/Vol] 15.3 g/dL Normal 13.0-16.5 [facility] Comment on above: Performed By: #### L 500.3400, L500.2500, L100.0100, L501.5200 ####[facility] [address] [place], [address] IG% 0.400 Normal 0.0-0.9 [facility] Comment on above: Result Comment: IG% - Immature Granulocytes (promyelocytes, myelocytes and metamyelocytes) > 1% indicates that a LEFT SHIFT is Present. Performed By: #### L 500.3400, L500.2500, L100.0100, L501.5200 ####[facility] [address] [place], [address] Lymphocytes/100 WBC (Bld) 31.6 % Normal 19-41 [facility] Comment on above: Performed By: #### L 500.3400, L500.2500, L100.0100, L501.5200 ####[facility] [address] [place], [address] MCH (RBC) [Entitic mass] 31.6 pg Normal 27.0-32.0 [facility] Comment on above: Performed By: #### L 500.3400, L500.2500, L100.0100, L501.5200 ####[facility] [address] [place], [address] MCHC (RBC) [Mass/Vol] 33.7 g/dL Normal 32-36 [facility] Comment on above: Performed By: #### L 500.3400, L500.2500, L100.0100, L501.5200 ####[facility] [address] [place], [address] MCV (RBC) [Entitic vol] 93.8 fL Normal 80-94 [facility] Comment on above: Performed By: #### L 500.3400, L500.2500, L100.0100, L501.5200 ####[facility] [address] [place], [address] Monocytes/100 WBC (Bld) 10.2 % High 0-10 [facility] Comment on above: Performed By: #### L 500.3400, L500.2500, L100.0100, L501.5200 ####[facility] [address] [place], [address] Neutrophils/100 WBC (Bld) 56.7 % Normal 47-70 [facility] Comment on above: Performed By: #### L 500.3400, L500.2500, L100.0100, L501.5200 ####[facility] [address] [place], [address] Nucleated RBC (Bld) [#/Vol] 0 10*3/uL Normal 0-5 [facility] Comment on above: Performed By: #### L 500.3400, L500.2500, L100.0100, L501.5200 ####[facility] [address] [place], [address] Platelet mean volume (Bld) [Entitic vol] 11.0 fL Normal 6.2-12.0 [facility] Comment on above: Performed By: #### L 500.3400, L500.2500, L100.0100, L501.5200 ####[facility] [address] [place], [address] Platelets (Bld) [#/Vol] 83 10*3/uL Low 150-450 [facility] Comment on above: Performed By: #### L 500.3400, L500.2500, L100.0100, L501.5200 ####[facility] [address] [place], [address] RBC (Bld) [#/Vol] 4.84 10*6/uL Normal 4.6-6.2 [facility] Comment on above: Performed By: #### L 500.3400, L500.2500, L100.0100, L501.5200 ####[facility] [address] [place], [address] RDW SD 52.7 fl High 35.1-43.9 [facility] Comment on above: Performed By: #### L 500.3400, L500.2500, L100.0100, L501.5200 ####[facility] [address] [place], [address] WBC (Bld) [#/Vol] 7.4 10*3/uL Normal 4.4-11.0 [facility] Comment on above: Performed By: #### L 500.3400, L500.2500, L100.0100, L501.5200 ####[facility] [address] [place], [address] Cardiac Cath Diagnosticon Cardiac Cath Diagnostic [facility] Imaging Services [address] [place] [address] Cardiac Cath Diagnostic MR#: [id number] Acct: [id number] Name: KELVIN HERNANDEZ Rep #: [id number] : 1955 69 From: Carlton Keyes MD PCP: Dr. Lee Mathews MD Status:ADM IN Patient Name: KELVIN HERNANDEZ Study Date: 03/24/2025 Performing: Carlton Keyes MD Ht: 68 inches 172.72 cm : 1955 Wt: 256.1 lbs 116 kg Age: 69 Gender: male BSA: 2.27 PROCEDURE(S) PERFORMED DC02-([id number])L[facility]/COR CLINICAL PROFILE AND INDICATIONS Indications: Cardiomyopathy Heart Failure: NYHA Class: 3, Newly Diagnosed: Yes, Heart Failure Type: Systolic Stress/Imaging Stress/Image Study Performed: No CAD Presentations: Other: CHF CONCLUSIONS Normal coronary arteries Cardiomyopathy: Dilated RECOMMENDATIONS Medical therapy DESCRIPTION OF PROCEDURE The patient arrived to the procedure lab. The risks and benefits of the procedure as well as a full description of our services here and current unavailability of surgical backup were fully explained to the patient and/or their significant other prior to the catheterization. The Timeout was completed, verifying the correct patient and procedure. The patient's procedural site was prepped and draped in the usual fashion. Local anesthetic was given subcutaneously to right radial region with Lidocaine 2%. Using a modified Seldinger technique, arterial access was obtained via the right radial artery, a 6Fr sheath was inserted. Left Coronary Artery selective angiography was performed in multiple views using a 5 Fr. 4.0 [place] catheter. Right Coronary Artery selective angiography was then performed in multiple views using a 5 Fr. 4.0 [place] catheter. LV to AO pullback pressures were then recorded.The arterial sheath was pulled and a TR Band was applied for hemostasis CORONARY ANGIOGRAPHY DOMINANCE: Right Dominant LEFT HEART ASSESSMENT Left Ventricular Ejection Fraction: by Echo 15 % Global Hypokinesis - Severe Depressed Left Ventricular systolic function LEFT MAIN: Angiographically normal LEFT ANTERIOR DESCENDING ARTERY: Angiographically normal CIRCUMFLEX ARTERY: Angiographically normal RIGHT CORONARY ARTERY: Angiographically normal COMPLICATIONS No Complications PROCEDURE MEDICATIONS Versed 1 mg IV Fentanyl 50 mcg IV Oxygen: 2 L/min via nasal cannula Baby Aspirin (81mg) 4 Tabs PO @ 03/24/2025 10:12:23 Heparin given IA 03/24/2025 10:22:07 SUMMARY OF HEMODYNAMIC DATA Time AIR REST ECG 10:08:18 AO 93/76 (84) SA 10:32:07 LV 102/22, 24 10:42:15 LV 99/23, 32 10:42:22 LVp 101/23, 30 10:42:31 AOp 101/73 (89) 10:42:36 Signed By Carlton Keyes MD On 03/24/2025 14:51:21 Signed By Carlton Keyes MD On 03/24/2025 11:39:23 Carlton Keyes MD 03/24/25 1451 Date Carlton Keyes MD Cosigner Signature: Date (if indicated) CC: Dr. Lee Mathews MD; Dr. Carlton Keyes MD; Dr. Derrick Chacon MD Date Dictated: 03/24/25 1018 Date Transcribed: 03/24/251450 [employer] Consultant: [place] Signed Normal [facility] Cardiac catheterization repo rtOrdered By: Carlton Keyes on 03-24-2025 Cardiac catheterization study [facility] [place] Imaging Services [address] [place] [id number] Cardiac Cath Diagnostic MR#: [id number] Acct: [id number] Name: KELVIN HERNANDEZ JrSavita Rep #:[id number] : 1955 69 From: Carlton Keyes MD PCP: Dr. Lee Mathews MD Status :ADM IN Patient Name: KELVIN HERNANDEZ Study Date: 03/24/2025 Performing: Carlton Keyes MD Ht: 68 inches 172.72 cm : 1955 Wt: 256.1 lbs 116 kg Age: 69 Gender: male BSA: 2.27 PROCEDURE(S) PERFORMED [id number])[facility] CLINICAL PROFILE AND INDICATIONS Indications: Cardiomyopathy Heart Failure: NYHA Class: 3, Newly Diagnosed: Yes, Heart Failure Type: Systolic Stress/Imaging Stress/Image Study Performed: No CAD Presentations: Other: CHF CONCLUSIONS Normal coronary arteries Cardiomyopathy: Dilated RECOMMENDATIONS Medical therapy DESCRIPTION OF PROCEDURE The patient arrived to the procedure lab. The risks and benefits of the procedure as well as a full description of our services here and current unavailability of surgical backup were fully explained to the patient and/or their significant other prior to the catheterization. The Timeout was completed, verifying the correct patient and procedure. The patient's procedural site was prepped and draped in the usual fashion. Local anesthetic was given subcutaneously to right radial region with Lidocaine 2%. Using a modified Seldinger technique, arterial access was obtained via the right radial artery, a 6Fr sheath was inserted. Left Coronary Artery selective angiography was performed in multiple views using a 5 Fr. 4.0 [place] catheter. Right Coronary Artery selective angiography was then performed in multiple views using a 5 Fr. 4.0 [place] catheter. LV to AO pullback pressures were then recorded.The arterial sheath was pulled and a TR Band was applied for hemostasis CORONARY ANGIOGRAPHY DOMINANCE: Right Dominant LEFT HEART ASSESSMENT Left Ventricular Ejection Fraction: by Echo 15 % Global Hypokinesis - Severe Depressed Left Ventricular systolic function LEFT MAIN: Angiographically normal LEFT ANTERIOR DESCENDING ARTERY: Angiographically normal CIRCUMFLEX ARTERY: Angiographically normal RIGHT CORONARY ARTERY: Angiographically normal COMPLICATIONS No Complications PROCEDURE MEDICATIONS Versed 1 mg IV Fentanyl 50 mcg IV Oxygen: 2 L/min via nasal cannula Baby Aspirin (81mg) 4 Tabs PO @ 03/24/2025 10:12:23 Heparin given IA 03/24/2025 10:22:07 SUMMARY OF HEMODYNAMIC DATA Time AIR REST ECG 10:08:18 AO 93/76 (84) SA 10:32:07 LV 102/22, 24 10:42:15 LV 99/23, 32 10:42:22 LVp 101/23, 30 10:42:31 AOp 101/73 (89) 10:42:36 Signed By Carlton Keyes MD On 03/24/2025 14:51:21 Signed By Carlton Keyes MD On 03/24/2025 11:39:23 Carlton Keyes MD 03/24/25 1451 Date _ [facility] Signature: Date _ (if indicated) CC: Dr. Lee Mathews MD; Dr. Carlton Keyes MD; Dr. Derrick Chacon MD ~ Date Dictated: 03/24/25 1018 Date Transcribed: 03/24/25 1451 [employer] Consultant: [place] Signed [facility] Work Phone: Eosinophil percentageOrdered By: Stanley Craig on 03-24-2025 Eosinophils/100 WBC (Bld) 0.7 % 0-5 [facility] Erythrocyte distribution wid th ratioOrdered By: Stanley Craig on 03-24-2025 Erythrocyte distribution width (RBC) [Ratio] 15.5 % High 11.6-14.6 [facility] Erythrocyte distribution wid th standard deviationOrdered By: Stanley Craig on 03-24-2025 Erythrocyte distribution width (RBC) [Ratio] 52.7 fl High 35.1-43.9 [facility] Hematocrit Auto (Bld) [Volum e fraction]Ordered By: Stanley Craig on 03-24-2025 Hematocrit (Bld) [Volume fraction] 45.4 % 40-54 [facility] Hemoglobin measurementOrdere d By: Stanley Craig on 03-24-2025 Hemoglobin (Bld) [Mass/Vol] 15.3 g/dL 13.0-16.5 [facility] Immature granulocytes/100 WB C Auto (Bld)Ordered By: Stanley Craig on 03-24-2025 Immature granulocytes/100 WBC (Bld) 0.400 % 0.0-0.9 [facility] Comment on above: IG% - Immature Granu locytes (promyelocytes, myelocytes and metamyelocytes) > 1% indicates that a LEFT SHIFT is Present. Laboratory - Chemistry and C hemistry - challengeOrdered By: Stanley Craig on 03-24-2025 AST [Catalytic activity/Vol] 60 U/L High <38 [facility] Liver Profileon 03-24-2025 Albumin [Mass/Vol] 3.4 g/dL Normal 3.4-4.8 [facility] Comment on above: Performed By: #### L 500.3400, L500.2500, L100.0100, L501.5200 ####[facility] [address] [place], [address] ALK PHOS 152 U/L High 40-129 [facility] Comment on above: Performed By: #### L 500.3400, L500.2500, L100.0100, L501.5200 ####[facility] [address] [place], [address] ALT [Catalytic activity/Vol] 80 U/L High <=46 [facility] Comment on above: Performed By: #### L 500.3400, L500.2500, L100.0100, L501.5200 ####[facility] [address] [place], [address] AST [Catalytic activity/Vol] 60 U/L High <=37 [facility] Comment on above: Performed By: #### L 500.3400, L500.2500, L100.0100, L501.5200 ####[facility] [address] [place], [address] Bilirubin [Mass/Vol] 1.30 mg/dL Normal 0.00-1.30 [facility] Comment on above: Performed By: #### L 500.3400, L500.2500, L100.0100, L501.5200 ####[facility] [address] [place], [address] Bilirubin.direct [Mass/Vol] 0.70 mg/dL High 0.00-0.30 [facility] Comment on above: Performed By: #### L 500.3400, L500.2500, L100.0100, L501.5200 ####[facility] [address] [place], [address] Globulin (S) [Mass/Vol] 2.3 g/dL Normal 2.2-4.2 [facility] Comment on above: Performed By: #### L 500.3400, L500.2500, L100.0100, L501.5200 ####[facility] [address] [place], [address] T PROT 5.7 g/dL Low 5.9-8.4 [facility] Comment on above: Performed By: #### L 500.3400, L500.2500, L100.0100, L501.5200 ####[facility] [address] [place], [address] MCV (mean corpuscular volume ) determinationOrdered By: Stanley Criag on 03-24-2025 MCV (RBC) [Entitic vol] 93.8 fL 80-94 [facility] Magnesiumon 03-24-2025 Magnesium [Mass/Vol] 2.1 mg/dL Normal 1.5-2.2 [facility] Comment on above: Performed By: #### L 500.3400, L500.2500, L100.0100, L501.5200 ####[facility] [address] [place], [address] Mean corpuscular hemoglobin (MCH) determinationOrdered By: Stanley Craig on 03-24-2025 MCH (RBC) [Entitic mass] 31.6 pg 27.0-32.0 [facility] Mean corpuscular hemoglobin concentration (MCHC) determinationOrdered By: Stanley Craig on 03-24-2025 MCHC (RBC) [Mass/Vol] 33.7 g/dL 32-36 [facility] Mean platelet volume determi nationOrdered By: Stanley Craig on 03-24-2025 Platelet mean volume (Bld) [Entitic vol] 11.0 fL 6.2-12.0 [facility] Monocyte percentageOrdered B y: Stanley Craig on 03-24-2025 Monocytes/100 WBC (Bld) 10.2 % High 0-10 [facility] Neutrophil percentageOrdered By: Stanley Craig on 03-24-2025 Neutrophils/100 WBC (Bld) 56.7 % 47-70 [facility] Nucleated red blood cell per centageOrdered By: Stanley Craig on 03-24-2025 Nucleated RBC/100 WBC (Bld) [Ratio] 0 % 0-5 [facility] Partial Thromboplast Timeon 03-24-2025 aPTT Coag (Bld) [Time] 34.6 s Normal 24.1-36.2 [facility] Comment on above: Order Comment: Comme nts: Heparin drip Performed By: #### L 499.0043 #### [facility] [address] [place], [address] aPTT Coag (Bld) [Time] 87.8 s High 24.1-36.2 [facility] Comment on above: Order Comment: Comme nts: Heparin drip Performed By: #### L 499.0043 #### [facility] [address] [place], [address] Phosphoruson 03-24-2025 Phosphate [Mass/Vol] 4.4 mg/dL Normal 2.7-4.5 [facility] Comment on above: Performed By: #### L 499.0043 #### [facility] [address] [place], [address] Platelet countOrdered By: Yonis Craig on 03-24-2025 Platelets (Bld) [#/Vol] 83 10*3/uL Low 150-450 [facility] RBC Auto (Bld) [#/Vol]Ordere d By: Stanley Craig on 03-24-2025 RBC (Bld) [#/Vol] 4.84 10*6/uL 4.6-6.2 [facility] Serum globulin measurementOr dered By: Stanley Craig on 03-24-2025 Globulin (S) [Mass/Vol] 2.3 g/dL 2.2-4.2 [facility] Serum or plasma alanine andre otransferase (ALT) measurementOrdered By: Stanley Craig on 03-24-2025 ALT [Catalytic activity/Vol] 80 U/L High <47 [facility] Serum or plasma albumin jennifer urement (mass/volume)Ordered By: Stanley Craig on 03-24-2025 Albumin [Mass/Vol] 3.4 g/dL 3.4-4.8 [facility] Serum or plasma alkaline elisabeth sphatase measurementOrdered By: Stanley Craig on 03-24-2025 ALP [Catalytic activity/Vol] 152 U/L High 40-129 [facility] Total proteinOrdered By: Ricky Craig on 03-24-2025 Protein [Mass/Vol] 5.7 g/dL Low 5.9-8.4 [facility] White blood cell (WBC) count Ordered By: Stanley Craig on 03-24-2025 WBC (Bld) [#/Vol] 7.4 10*3/uL 4.4-11.0 [facility] Basic Metabolic Profile (BMP )on 03-23-2025 BUN/CRE 21.2 RATIO High 10-20 [facility] Comment on above: Performed By: #### L 503.7505 #### [facility] [address] [place], [address] Calcium [Mass/Vol] 8.0 mg/dL Normal 7.6-11.0 [facility] Comment on above: Performed By: #### L [id number] #### [facility] [address] [place], [address] Chloride [Moles/Vol] 95 mmol/L Low 98-108 [facility] Comment on above: Performed By: #### L [id number] #### [facility] [address] [place], [address] CO2 [Moles/Vol] 35.2 mmol/L High 21.0-32.0 [facility] Comment on above: Performed By: #### L [id number] #### [facility] [address] [place], [address] Creatinine [Mass/Vol] 1.17 mg/dL Normal 0.70-1.20 [facility] Comment on above: Performed By: #### L 503.7505 #### [facility] [address] [place], [address] ECRCL 72.01 ml/min Normal 50-250 [facility] Comment on above: Performed By: #### L 503.7505 #### [facility] [address] [place], [address] GAP 9 Normal 5-15 [facility] Comment on above: Performed By: #### L 503.7505 #### [facility] [address] [place], [address] GFR/1.73 sq M.predicted among non-blacks MDRD (S/P/Bld) [Vol rate/Area] 67 mL/min/{1.73_m2} Normal >60 [facility] Comment on above: Result Comment: mL/m in/1.73m2 CKD-EPI Creatinine Equation (2020) Performed By: #### L 503.7505 #### [facility] [address] [place], [address] Glucose [Mass/Vol] 116 mg/dL High 70-99 [facility] Comment on above: Performed By: #### L 503.7505 #### [facility] [address] [place], [address] Potassium [Moles/Vol] 3.0 mmol/L Low 3.3-5.1 [facility] Comment on above: Performed By: #### L 503.7505 #### [facility] [address] [place], [address] Sodium [Moles/Vol] 140 mmol/L Normal 133-145 [facility] Comment on above: Performed By: #### L 503.7505 #### [facility] [address] [place], [address] Urea nitrogen [Mass/Vol] 25 mg/dL High 4-19 [facility] Comment on above: Performed By: #### L 503.7505 #### [facility] [address] [place], [address] CBC W/Diff, Automatedon 05-0 4-5 Absolute Lymph 1.81 X10 3/uL Normal 0.83-4.51 [facility] Comment on above: Performed By: #### L 503.7505 #### [facility] [address] [place], [address] Absolute Neut 3.7 X10 3/uL Normal 2.0-7.7 [facility] Comment on above: Performed By: #### L 503.7505 #### [facility] [address] [place], [address] Basophils/100 WBC (Bld) 0.3 % Normal 0-1 [facility] Comment on above: Performed By: #### L 503.7505 #### [facility] [address] [place], [address] Eosinophils/100 WBC (Bld) 1.3 % Normal 0-5 [facility] Comment on above: Performed By: #### L 503.7505 #### [facility] [address] [place], [address] Erythrocyte distribution width (RBC) [Ratio] 15.3 % High 11.6-14.6 [facility] Comment on above: Performed By: #### L 503.7505 #### [facility] [address] [place], [address] Hematocrit (Bld) [Volume fraction] 44.9 % Normal 40-54 [facility] Comment on above: Performed By: #### L 503.7505 #### [facility] [address] [place], [address] Hemoglobin (Bld) [Mass/Vol] 15.0 g/dL Normal 13.0-16.5 [facility] Comment on above: Performed By: #### L 503.7505 #### [facility] [address] [place], [address] IG% 0.500 Normal 0.0-0.9 [facility] Comment on above: Result Comment: IG% - Immature Granulocytes (promyelocytes, myelocytes and metamyelocytes) > 1% indicates that a LEFT SHIFT is Present. Performed By: #### L 503.7505 #### [facility] [address] [place], [address] Lymphocytes/100 WBC (Bld) 28.8 % Normal 19-41 [facility] Comment on above: Performed By: #### L 503.7505 #### [facility] [address] [place], [address] MCH (RBC) [Entitic mass] 31.6 pg Normal 27.0-32.0 [facility] Comment on above: Performed By: #### L 503.7505 #### [facility] [address] [place], [address] MCHC (RBC) [Mass/Vol] 33.4 g/dL Normal 32-36 [facility] Comment on above: Performed By: #### L 503.7505 #### [facility] [address] [place], [address] MCV (RBC) [Entitic vol] 94.7 fL High 80-94 [facility] Comment on above: Performed By: #### L 503.7505 #### [facility] [address] [place], [address] Monocytes/100 WBC (Bld) 10.5 % High 0-10 [facility] Comment on above: Performed By: #### L 503.7505 #### [facility] [address] [place], [address] Neutrophils/100 WBC (Bld) 58.6 % Normal 47-70 [facility] Comment on above: Performed By: #### L 503.7505 #### [facility] [address] [place], [address] Nucleated RBC (Bld) [#/Vol] 0 10*3/uL Normal 0-5 [facility] Comment on above: Performed By: #### L 503.7505 #### [facility] [address] [place], [address] Platelet mean volume (Bld) [Entitic vol] 10.6 fL Normal 6.2-12.0 [facility] Comment on above: Performed By: #### L 503.7505 #### [facility] [address] [place], [address] Platelets (Bld) [#/Vol] 82 10*3/uL Low 150-450 [facility] Comment on above: Performed By: #### L 503.7505 #### [facility] [address] [place], [address] RBC (Bld) [#/Vol] 4.74 10*6/uL Normal 4.6-6.2 [facility] Comment on above: Performed By: #### L 503.7505 #### [facility] [address] [place], [address] RDW SD 52.9 fl High 35.1-43.9 [facility] Comment on above: Performed By: #### L 503.7505 #### [facility] [address] [place], [address] WBC (Bld) [#/Vol] 6.3 10*3/uL Normal 4.4-11.0 [facility] Comment on above: Performed By: #### L 503.7505 #### [facility] [address] [place], [address] Liver Profileon 03-23-2025 Albumin [Mass/Vol] 3.4 g/dL Normal 3.4-4.8 [facility] Comment on above: Performed By: #### L 503.7505 #### [facility] [address] [place], [address] ALK PHOS 147 U/L High 40-129 [facility] Comment on above: Performed By: #### L 503.7505 #### [facility] [address] [place], [address] ALT [Catalytic activity/Vol] 86 U/L High <=46 [facility] Comment on above: Performed By: #### L 503.7505 #### [facility] [address] [place], [address] AST [Catalytic activity/Vol] 69 U/L High <=37 [facility] Comment on above: Performed By: #### L 503.7505 #### [facility] [address] [place], [address] Bilirubin [Mass/Vol] 1.02 mg/dL Normal 0.00-1.30 [facility] Comment on above: Performed By: #### L 503.7505 #### [facility] [address] [place], [address] Bilirubin.direct [Mass/Vol] 0.57 mg/dL High 0.00-0.30 [facility] Comment on above: Performed By: #### L 503.7505 #### [facility] [address] [place], [address] Globulin (S) [Mass/Vol] 2.1 g/dL Low 2.2-4.2 [facility] Comment on above: Performed By: #### L 503.7505 #### [facility] [address] [place], [address] T PROT 5.5 g/dL Low 5.9-8.4 [facility] Comment on above: Performed By: #### L 503.7505 #### [facility] [address] [place], [address] Magnesiumon 03-23-2025 Magnesium [Mass/Vol] 2.0 mg/dL Normal 1.5-2.2 [facility] Comment on above: Order Comment: OKAY TO ADD PER DR. CRAIG Performed By: #### L 503.7505 #### [facility] [address] [place], [address] Magnesium [Mass/Vol] 2.0 mg/dL Normal 1.5-2.2 [facility] Comment on above: Performed By: #### L 503.7505 #### [facility] [address] [place], [address] Partial Thromboplast Timeon 03-23-2025 aPTT Coag (Bld) [Time] 83.8 s High 24.1-36.2 [facility] Comment on above: Order Comment: Comme nts: Heparin gtt Performed By: #### L 499.0043 #### [facility] [address] [place], [address] aPTT Coag (Bld) [Time] 150.3 s Invalid Interpretation Code 24.1-36.2 [facility] Comment on above: Result Comment: CRIT ICAL VALUE CALLED TO CODI LAMAS 03/23/25 1223 Rik Lowe. RESULTS READ BACK BY SAME. Performed By: #### L 300.4310, L300.3900 #### [facility] [address] [place], [address] aPTT Coag (Bld) [Time] 212.3 s Invalid Interpretation Code 24.1-36.2 [facility] Comment on above: Result Comment: CRIT ICAL VALUE CALLED TO DILIP CASAS 03/23/25 0357 Rik Lowe. RESULTS READ BACK BY SAME. Performed By: #### L 300.4310, L300.3900 #### [facility] [address] [place], [address] Phosphoruson 03-23-2025 Phosphate [Mass/Vol] 3.7 mg/dL Normal 2.7-4.5 [facility] Comment on above: Order Comment: OKAY TO ADD PER DR. CRAIG Performed By: #### L 499.0043 #### [facility] [address] [place], [address] Basic Metabolic Profile (BMP )on 03-22-2025 BUN/CRE 20.9 RATIO High 10-20 [facility] Comment on above: Performed By: #### L 500.3400, L501.2300, L500.2500, L100.0100, L501.5200 ####[facility] [address] [place], [address] Calcium [Mass/Vol] 8.0 mg/dL Normal 7.6-11.0 [facility] Comment on above: Performed By: #### L 500.3400, L501.2300, L500.2500, L100.0100, L501.5200 ####[facility] [address] [place], [address] Chloride [Moles/Vol] 94 mmol/L Low 98-108 [facility] Comment on above: Performed By: #### L 500.3400, L501.2300, L500.2500, L100.0100, L501.5200 ####[facility] [address] [place], [address] CO2 [Moles/Vol] 30.7 mmol/L Normal 21.0-32.0 [facility] Comment on above: Performed By: #### L 500.3400, L501.2300, L500.2500, L100.0100, L501.5200 ####[facility] [address] [place], [address] Creatinine [Mass/Vol] 1.18 mg/dL Normal 0.70-1.20 [facility] Comment on above: Performed By: #### L 500.3400, L501.2300, L500.2500, L100.0100, L501.5200 ####[facility] [address] [place], [address] ECRCL 71.40 ml/min Normal 50-250 [facility] Comment on above: Performed By: #### L 500.3400, L501.2300, L500.2500, L100.0100, L501.5200 ####[facility] [address] [place], [address] GAP 12 Normal 5-15 [facility] Comment on above: Performed By: #### L 500.3400, L501.2300, L500.2500, L100.0100, L501.5200 ####[facility] [address] [place], [address] GFR/1.73 sq M.predicted among non-blacks MDRD (S/P/Bld) [Vol rate/Area] 66 mL/min/{1.73_m2} Normal >60 [facility] Comment on above: Result Comment: mL/m in/1.73m2 CKD-EPI Creatinine Equation (2020) Performed By: #### L 500.3400, L501.2300, L500.2500, L100.0100, L501.5200 ####[facility] [address] [place], [address] Glucose [Mass/Vol] 95 mg/dL Normal 70-99 [facility] Comment on above: Performed By: #### L 500.3400, L501.2300, L500.2500, L100.0100, L501.5200 ####[facility] [address] [place], [address] Potassium [Moles/Vol] 3.5 mmol/L Normal 3.3-5.1 [facility] Comment on above: Performed By: #### L 500.3400, L501.2300, L500.2500, L100.0100, L501.5200 ####[facility] [address] [place], [address] Sodium [Moles/Vol] 137 mmol/L Normal 133-145 [facility] Comment on above: Performed By: #### L 500.3400, L501.2300, L500.2500, L100.0100, L501.5200 ####[facility] [address] [place], [address] Urea nitrogen [Mass/Vol] 25 mg/dL High 4-19 [facility] Comment on above: Performed By: #### L 500.3400, L501.2300, L500.2500, L100.0100, L501.5200 ####[facility] [address] [place], [address] CBC W/Diff, Automatedon 05-0 3-2024 Absolute Lymph 2.80 X10 3/uL Normal 0.83-4.51 [facility] Comment on above: Performed By: #### L 500.3400, L501.2300, L500.2500, L100.0100, L501.5200 ####[facility] [address] [place], [address] Absolute Neut 4.2 X10 3/uL Normal 2.0-7.7 [facility] Comment on above: Performed By: #### L 500.3400, L501.2300, L500.2500, L100.0100, L501.5200 ####[facility] [address] [place], [address] Basophils/100 WBC (Bld) 0.3 % Normal 0-1 [facility] Comment on above: Performed By: #### L 500.3400, L501.2300, L500.2500, L100.0100, L501.5200 ####[facility] [address] [place], [address] Eosinophils/100 WBC (Bld) 0.9 % Normal 0-5 [facility] Comment on above: Performed By: #### L 500.3400, L501.2300, L500.2500, L100.0100, L501.5200 ####[facility] [address] [place], [address] Erythrocyte distribution width (RBC) [Ratio] 15.4 % High 11.6-14.6 [facility] Comment on above: Performed By: #### L 500.3400, L501.2300, L500.2500, L100.0100, L501.5200 ####[facility] [address] [place], [address] Hematocrit (Bld) [Volume fraction] 46.4 % Normal 40-54 [facility] Comment on above: Performed By: #### L 500.3400, L501.2300, L500.2500, L100.0100, L501.5200 ####[facility] [address] [place], [address] Hemoglobin (Bld) [Mass/Vol] 16.0 g/dL Normal 13.0-16.5 [facility] Comment on above: Performed By: #### L 500.3400, L501.2300, L500.2500, L100.0100, L501.5200 ####[facility] [address] [place], [address] IG% 0.400 Normal 0.0-0.9 [facility] Comment on above: Result Comment: IG% - Immature Granulocytes (promyelocytes, myelocytes and metamyelocytes) > 1% indicates that a LEFT SHIFT is Present. Performed By: #### L 500.3400, L501.2300, L500.2500, L100.0100, L501.5200 ####[facility] [address] [place], [address] Lymphocytes/100 WBC (Bld) 35.9 % Normal 19-41 [facility] Comment on above: Performed By: #### L 500.3400, L501.2300, L500.2500, L100.0100, L501.5200 ####[facility] [address] [place], [address] MCH (RBC) [Entitic mass] 32.3 pg High 27.0-32.0 [facility] Comment on above: Performed By: #### L 500.3400, L501.2300, L500.2500, L100.0100, L501.5200 ####[facility] [address] [place], [address] MCHC (RBC) [Mass/Vol] 34.5 g/dL Normal 32-36 [facility] Comment on above: Performed By: #### L 500.3400, L501.2300, L500.2500, L100.0100, L501.5200 ####[facility] [address] [place], [address] MCV (RBC) [Entitic vol] 93.7 fL Normal 80-94 [facility] Comment on above: Performed By: #### L 500.3400, L501.2300, L500.2500, L100.0100, L501.5200 ####[facility] [address] [place], [address] Monocytes/100 WBC (Bld) 9.2 % Normal 0-10 [facility] Comment on above: Performed By: #### L 500.3400, L501.2300, L500.2500, L100.0100, L501.5200 ####[facility] [address] [place], [address] Neutrophils/100 WBC (Bld) 53.3 % Normal 47-70 [facility] Comment on above: Performed By: #### L 500.3400, L501.2300, L500.2500, L100.0100, L501.5200 ####[facility] [address] [place], [address] Nucleated RBC (Bld) [#/Vol] 0 10*3/uL Normal 0-5 [facility] Comment on above: Performed By: #### L 500.3400, L501.2300, L500.2500, L100.0100, L501.5200 ####[facility] [address] [place], [address] Platelet mean volume (Bld) [Entitic vol] 11.3 fL Normal 6.2-12.0 [facility] Comment on above: Performed By: #### L 500.3400, L501.2300, L500.2500, L100.0100, L501.5200 ####[facility] [address] [place], [address] Platelets (Bld) [#/Vol] 86 10*3/uL Low 150-450 [facility] Comment on above: Performed By: #### L 500.3400, L501.2300, L500.2500, L100.0100, L501.5200 ####[facility] [address] [place], [address] RBC (Bld) [#/Vol] 4.95 10*6/uL Normal 4.6-6.2 [facility] Comment on above: Performed By: #### L 500.3400, L501.2300, L500.2500, L100.0100, L501.5200 ####[facility] [address] [place], [address] RDW SD 52.3 fl High 35.1-43.9 [facility] Comment on above: Performed By: #### L 500.3400, L501.2300, L500.2500, L100.0100, L501.5200 ####[facility] [address] [place], [address] WBC (Bld) [#/Vol] 7.8 10*3/uL Normal 4.4-11.0 [facility] Comment on above: Performed By: #### L 500.3400, L501.2300, L500.2500, L100.0100, L501.5200 ####[facility] [address] [place], [address] International normalized rat io (INR) calculationOrdered By: Stanley Craig on 03-22-2025 INR Coag (Bld) [Relative time] 1.6 {INR} [facility] L499.0042on 03-22-2025 Trop T High Sen 42 ng/L High <=22 [facility] Comment on above: Performed By: #### L 300.4310, L300.3900 #### [facility] [address] [place], [address] L499.0043on 03-22-2025 Trop T High Sen 40 ng/L High <=22 [facility] Comment on above: Performed By: #### L 499.0043 #### [facility] [address] [place], [address] L501.4021on 03-22-2025 Trop T High Sen 43 ng/L High <=22 [facility] Comment on above: Performed By: #### L 499.0043 #### [facility] [address] [place], [address] L503.7505on 05-03-2025 Natriuretic peptide B (Bld) [Mass/Vol] 6426 pg/mL High <=900 [facility] Comment on above: Result Comment: Hear t Failure Unlikely: < 300 pg/mL Heart Failure Likely < 50 Years: > 450 pg/mL 50-75 Years: > 900 pg/mL >75 Years: > 1800 pg/mL Performed By: #### L 499.0043 #### [facility] [address] [place], [address] Liver Profileon 03-22-2025 Albumin [Mass/Vol] 3.4 g/dL Normal 3.4-4.8 [facility] Comment on above: Performed By: #### L 500.3400, L501.2300, L500.2500, L100.0100, L501.5200 ####[facility] [address] [place], [address] ALK PHOS 166 U/L High 40-129 [facility] Comment on above: Performed By: #### L 500.3400, L501.2300, L500.2500, L100.0100, L501.5200 ####[facility] [address] [place], [address] ALT [Catalytic activity/Vol] 108 U/L High <=46 [facility] Comment on above: Performed By: #### L 500.3400, L501.2300, L500.2500, L100.0100, L501.5200 ####[facility] [address] [place], [address] AST [Catalytic activity/Vol] 92 U/L High <=37 [facility] Comment on above: Performed By: #### L 500.3400, L501.2300, L500.2500, L100.0100, L501.5200 ####[facility] [address] [place], [address] Bilirubin [Mass/Vol] 1.36 mg/dL High 0.00-1.30 [facility] Comment on above: Performed By: #### L 500.3400, L501.2300, L500.2500, L100.0100, L501.5200 ####[facility] [address] [place], [address] Bilirubin.direct [Mass/Vol] 0.68 mg/dL High 0.00-0.30 [facility] Comment on above: Performed By: #### L 500.3400, L501.2300, L500.2500, L100.0100, L501.5200 ####[facility] [address] [place], [address] Globulin (S) [Mass/Vol] 2.4 g/dL Normal 2.2-4.2 [facility] Comment on above: Performed By: #### L 500.3400, L501.2300, L500.2500, L100.0100, L501.5200 ####[facility] [address] [place], [address] T PROT 5.9 g/dL Normal 5.9-8.4 [facility] Comment on above: Performed By: #### L 500.3400, L501.2300, L500.2500, L100.0100, L501.5200 ####[facility] [address] [place], [address] Magnesiumon 03-22-2025 Magnesium [Mass/Vol] 2.0 mg/dL Normal 1.5-2.2 [facility] Comment on above: Performed By: #### L 500.3400, L501.2300, L500.2500, L100.0100, L501.5200 ####[facility] [address] [place], [address] Partial Thromboplast Timeon 03-22-2025 aPTT Coag (Bld) [Time] 29.9 s Normal 24.1-36.2 [facility] Comment on above: Performed By: #### L 300.4310, L300.3900 #### [facility] [address] [place], [address] Phosphoruson 03-22-2025 Phosphate [Mass/Vol] 3.6 mg/dL Normal 2.7-4.5 [facility] Comment on above: Performed By: #### L 500.3400, L501.2300, L500.2500, L100.0100, L501.5200 ####[facility] [address] [place], [address] Prothrombin Time w/INRon INR Coag (PPP) [Relative time] 1.6 {INR} Normal [facility] Comment on above: Performed By: #### L 300.4310, L300.3900 #### [facility] [address] [place], [address] PT Coag (PPP) [Time] 19.1 s High 11.7-14.9 [facility] Comment on above: Performed By: #### L 300.4310, L300.3900 #### [facility] [address] [place], [address] Prothrombin timeOrdered By: Stanley Craig on 03-22-2025 PT Coag (PPP) [Time] 19.1 s High 11.7-14.9 [facility] Troponin T.cardiac [Mass/vol ume] in Serum or Plasma by High sensitivity methodOrdered By: Krissy Freitas on 03-22-2025 Troponin T.cardiac High sensitivity method [Mass/Vol] 40 ng/L High <22 [facility] Troponin T.cardiac High sensitivity method [Mass/Vol] 42 ng/L High <22 [facility] Troponin T.cardiac High sensitivity method [Mass/Vol] 43 ng/L High <22 [facility] Comment on above: Delta: 39 on CBC W/Diff, Automatedon 05-0 2-2025 Absolute Lymph 2.25 X10 3/uL Normal 0.83-4.51 [facility] Comment on above: Performed By: #### L 100.0100, L501.9520, L501.2300, L500.4100, L500.4050 ####[facility] [address] [place], [address] Absolute Neut 4.1 X10 3/uL Normal 2.0-7.7 [facility] Comment on above: Performed By: #### L 100.0100, L501.9520, L501.2300, L500.4100, L500.4050 ####[facility] [address] [place], [address] Basophils/100 WBC (Bld) 0.1 % Normal 0-1 [facility] Comment on above: Performed By: #### L 100.0100, L501.9520, L501.2300, L500.4100, L500.4050 ####[facility] [address] [place], [address] Eosinophils/100 WBC (Bld) 0.3 % Normal 0-5 [facility] Comment on above: Performed By: #### L 100.0100, L501.9520, L501.2300, L500.4100, L500.4050 ####[facility] [address] [place], [address] Erythrocyte distribution width (RBC) [Ratio] 15.4 % High 11.6-14.6 [facility] Comment on above: Performed By: #### L 100.0100, L501.9520, L501.2300, L500.4100, L500.4050 ####[facility] [address] [place], [address] Hematocrit (Bld) [Volume fraction] 45.2 % Normal 40-54 [facility] Comment on above: Performed By: #### L 100.0100, L501.9520, L501.2300, L500.4100, L500.4050 ####[facility] [address] [place], [address] Hemoglobin (Bld) [Mass/Vol] 15.0 g/dL Normal 13.0-16.5 [facility] Comment on above: Performed By: #### L 100.0100, L501.9520, L501.2300, L500.4100, L500.4050 ####[facility] [address] [place], [address] IG% 0.400 Normal 0.0-0.9 [facility] Comment on above: Result Comment: IG% - Immature Granulocytes (promyelocytes, myelocytes and metamyelocytes) > 1% indicates that a LEFT SHIFT is Present. Performed By: #### L 100.0100, L501.9520, L501.2300, L500.4100, L500.4050 ####[facility] [address] [place], [address] Lymphocytes/100 WBC (Bld) 31.8 % Normal 19-41 [facility] Comment on above: Performed By: #### L 100.0100, L501.9520, L501.2300, L500.4100, L500.4050 ####[facility] [address] [place], [address] MCH (RBC) [Entitic mass] 31.4 pg Normal 27.0-32.0 [facility] Comment on above: Performed By: #### L 100.0100, L501.9520, L501.2300, L500.4100, L500.4050 ####[facility] [address] [place], [address] MCHC (RBC) [Mass/Vol] 33.2 g/dL Normal 32-36 [facility] Comment on above: Performed By: #### L 100.0100, L501.9520, L501.2300, L500.4100, L500.4050 ####[facility] [address] [place], [address] MCV (RBC) [Entitic vol] 94.8 fL High 80-94 [facility] Comment on above: Performed By: #### L 100.0100, L501.9520, L501.2300, L500.4100, L500.4050 ####[facility] [address] [place], [address] Monocytes/100 WBC (Bld) 9.5 % Normal 0-10 [facility] Comment on above: Performed By: #### L 100.0100, L501.9520, L501.2300, L500.4100, L500.4050 ####[facility] [address] [place], [address] Neutrophils/100 WBC (Bld) 57.9 % Normal 47-70 [facility] Comment on above: Performed By: #### L 100.0100, L501.9520, L501.2300, L500.4100, L500.4050 ####[facility] [address] [place], [address] Nucleated RBC (Bld) [#/Vol] 0 10*3/uL Normal 0-5 [facility] Comment on above: Performed By: #### L 100.0100, L501.9520, L501.2300, L500.4100, L500.4050 ####[facility] [address] [place], [address] Platelet mean volume (Bld) [Entitic vol] 11.1 fL Normal 6.2-12.0 [facility] Comment on above: Performed By: #### L 100.0100, L501.9520, L501.2300, L500.4100, L500.4050 ####[facility] [address] [place], [address] Platelets (Bld) [#/Vol] 83 10*3/uL Low 150-450 [facility] Comment on above: Performed By: #### L 100.0100, L501.9520, L501.2300, L500.4100, L500.4050 ####[facility] [address] [place], [address] RBC (Bld) [#/Vol] 4.77 10*6/uL Normal 4.6-6.2 [facility] Comment on above: Performed By: #### L 100.0100, L501.9520, L501.2300, L500.4100, L500.4050 ####[facility] [address] [place], [address] RDW SD 52.9 fl High 35.1-43.9 [facility] Comment on above: Performed By: #### L 100.0100, L501.9520, L501.2300, L500.4100, L500.4050 ####[facility] [address] [place], [address] WBC (Bld) [#/Vol] 7.1 10*3/uL Normal 4.4-11.0 [facility] Comment on above: Performed By: #### L 100.0100, L501.9520, L501.2300, L500.4100, L500.4050 ####[facility] [address] [place], [address] Calculated very low density lipoprotein (VLDL) cholesterol measurementOrdered By: Sophia Lowe on 03-21-2025 Calculated very low density lipoprotein (VLDL) cholesterol measurement 9 mg/dL 5-40 [facility] Comprehensive Metabolic Prof ilon 03-21-2025 Albumin [Mass/Vol] 3.4 g/dL Normal 3.4-4.8 [facility] Comment on above: Performed By: #### L 100.0100, L501.9520, L501.2300, L500.4100, L500.4050 ####[facility] [address] [place], [address] Albumin/Globulin [Mass ratio] 1.4 {ratio} Normal 0.9-2.4 [facility] Comment on above: Performed By: #### L 100.0100, L501.9520, L501.2300, L500.4100, L500.4050 ####[facility] [address] [place], [address] ALK PHOS 178 U/L High 40-129 [facility] Comment on above: Performed By: #### L 100.0100, L501.9520, L501.2300, L500.4100, L500.4050 ####[facility] [address] [place], [address] ALT [Catalytic activity/Vol] 128 U/L High <=46 [facility] Comment on above: Performed By: #### L 100.0100, L501.9520, L501.2300, L500.4100, L500.4050 ####[facility] [address] [place], [address] AST [Catalytic activity/Vol] 135 U/L High <=37 [facility] Comment on above: Performed By: #### L 100.0100, L501.9520, L501.2300, L500.4100, L500.4050 ####[facility] [address] [place], [address] Bilirubin [Mass/Vol] 1.09 mg/dL Normal 0.00-1.30 [facility] Comment on above: Performed By: #### L 100.0100, L501.9520, L501.2300, L500.4100, L500.4050 ####[facility] [address] [place], [address] BUN/CRE 19.2 RATIO Normal 10-20 [facility] Comment on above: Performed By: #### L 100.0100, L501.9520, L501.2300, L500.4100, L500.4050 ####[facility] [address] [place], [address] Calcium [Mass/Vol] 8.0 mg/dL Normal 7.6-11.0 [facility] Comment on above: Performed By: #### L 100.0100, L501.9520, L501.2300, L500.4100, L500.4050 ####[facility] [address] [place], [address] Chloride [Moles/Vol] 94 mmol/L Low 98-108 [facility] Comment on above: Performed By: #### L 100.0100, L501.9520, L501.2300, L500.4100, L500.4050 ####[facility] [address] [place], [address] CO2 [Moles/Vol] 29.4 mmol/L Normal 21.0-32.0 [facility] Comment on above: Performed By: #### L 100.0100, L501.9520, L501.2300, L500.4100, L500.4050 ####[facility] [address] [place], [address] Creatinine [Mass/Vol] 1.40 mg/dL High 0.70-1.20 [facility] Comment on above: Performed By: #### L 100.0100, L501.9520, L501.2300, L500.4100, L500.4050 ####[facility] [address] [place], [address] ECRCL 61.25 ml/min Normal 50-250 [facility] Comment on above: Performed By: #### L 100.0100, L501.9520, L501.2300, L500.4100, L500.4050 ####[facility] [address] [place], [address] GAP 12 Normal 5-15 [facility] Comment on above: Performed By: #### L 100.0100, L501.9520, L501.2300, L500.4100, L500.4050 ####[facility] [address] [place], [address] GFR/1.73 sq M.predicted among non-blacks MDRD (S/P/Bld) [Vol rate/Area] 54 mL/min/{1.73_m2} Low >60 [facility] Comment on above: Result Comment: mL/m in/1.73m2 CKD-EPI Creatinine Equation (2020) Performed By: #### L 100.0100, L501.9520, L501.2300, L500.4100, L500.4050 ####[facility] [address] [place], [address] Globulin (S) [Mass/Vol] 2.4 g/dL Normal 2.2-4.2 [facility] Comment on above: Performed By: #### L 100.0100, L501.9520, L501.2300, L500.4100, L500.4050 ####[facility] [address] [place], [address] Glucose [Mass/Vol] 92 mg/dL Normal 70-99 [facility] Comment on above: Performed By: #### L 100.0100, L501.9520, L501.2300, L500.4100, L500.4050 ####[facility] [address] [place], [address] Potassium [Moles/Vol] 3.7 mmol/L Normal 3.3-5.1 [facility] Comment on above: Performed By: #### L 100.0100, L501.9520, L501.2300, L500.4100, L500.4050 ####[facility] [address] [place], [address] Sodium [Moles/Vol] 135 mmol/L Normal 133-145 [facility] Comment on above: Performed By: #### L 100.0100, L501.9520, L501.2300, L500.4100, L500.4050 ####[facility] [address] [place], [address] T PROT 5.8 g/dL Low 5.9-8.4 [facility] Comment on above: Performed By: #### L 100.0100, L501.9520, L501.2300, L500.4100, L500.4050 ####[facility] [address] [place], [address] Urea nitrogen [Mass/Vol] 27 mg/dL High 4-19 [facility] Comment on above: Performed By: #### L 100.0100, L501.9520, L501.2300, L500.4100, L500.4050 ####[facility] [address] [place], [address] Consultation - Cardiologyon 03-21-2025 Consultation - Cardiology [facility] Medical Records Department [address] [place] [address] Consultation - Cardiology 03/21/25 1305 MR#: [id number] Acct: [id number] Name: KELVIN HERNANDEZ Jr. Rep #: [id number] : 1955 69 From: Krissy Freitas MD PCP: Dr. Lee Mathews MD Status:ADM IN Location: [place] [address] Assessment Plan Assessment/Plan (1) Dyspnea: (2) History of COPD: (3) Acute systolic CHF (congestive heart failure): (4) Smoker: (5) Atrial fibrillation with RVR: PLAN: Plan 69-year-old patient with multiple medical comorbidities Patient morbidly obese with history of hypertension, hyperlipidemia, history of COPD Tobacco user Has a history of paroxysmal A-fib and heart failure reduced EF On this admission patient has symptoms of shortness of breath and weight gain. Seen by PCP who recommended to be seen and evaluated in the ED Admitted for management of the acute on chronic systolic heart failure as well management of the A- fib with RVR. Cardiac care plan; Patient has severe LV systolic dysfunction. Will start on CHF protocol with restriction of fluid intake With echocardiogram today revealed EF in the range of 10-15% with global LV hypokinesia. Has been on anticoagulation with Eliquis. Patient is on IV Lasix infusion. Will monitor electrolytes and renal function. Does not have any active chest pain In the on review of the monitoring engineer noted the patient had A-fib with RVR Has been on IV Cardizem which discontinued. Due to negative inotropic effect patient already had severe LV dysfunction with Will continue on on beta-shaniqua metoprolol in addition to low-dose digoxin. Will evaluate with BNP/trops. Will continue to monitor and follow-up clinically. Krissy Freitas MD,[facility] HPI Consult Data Date of Consult: 03/21/25 HPI Narrative Reason for Consultation: Acute systolic heart failure/A-fib with RVR HPI Narrative: KELVIN HERNANDEZ, is a 69 M who presents [facility] Medical History PAF (paroxysmal atrial fibrillation) CKD (chronic kidney disease), stage II Thrombocytopenia COPD (chronic obstructive pulmonary disease) Morbid obesity HLD (hyperlipidemia) HTN (hypertension) Tobacco use Anxiety and depression Cancer Home Medications ???Medication ???Instructions ???Recorded ???Last Taken ???Type lisinopril 20 mg tablet 20 mg PO QDAY hypertension 8 07/02/18 05:30 History albuterol sulfate 90 mcg/actuation 2 puff inhalation 4X/DAY PRN PRN 03/20/25 Unknown History aerosol inhaler shortness of breath or wheezing apixaban 5 mg tablet (Eliquis) 5 mg PO BID blood thinner 03/20/25 Unknown History furosemide 20 mg tablet 20 mg PO BID PRN water pill, 03/20 Unknown History diuretic metoprolol tartrate 50 mg tablet 50 mg PO BID afib 03/20/25 Unknown History Allergy/AdvReac Type Severity Reaction Status Date / Time sertraline (From Zoloft) Allergy Other Verified 03/20/25 17:24 Family History Father History of blood clots Lupus Bowel disease Colon cancer Skin cancer CVA (cerebral vascular accident) Mother Hypertension Surgical History History of appendectomy Social History (Updated 03/20/25 @ 20:[address] Sophia Lowe MD) household members: spouse Smoking Status: Current some day smoker tobacco type: cigarettes alcohol intake: never substance use type: does not use additional social history: DOES USE ASPIRIN Physical Exam Cardio Cardio Narrative: Seen and evaluated at bedside along with the nursing staff Review of the monitoring engineer showed A-fib with RVR Cardiac exam S1-S2 is irregular Chest exam diminished air entry bilateral Examination lower extremity unremarkable lower extremity edema +3???+4 Risk Stratification Risk Stratification Applicable: No Objective Data Vital Signs: Vital Signs Temp Pulse Resp BP Pulse Ox O2 Del Method 97.8 F 77 18 91/81 H 95 Room Air 03/21/25 10:00 03/21/25 12:00 03/21/25 12:00 03/21/25 12:00 03/21/25 12:00 03/21/25 12:00 Oxygen Delivery Method Room Air Weight: 266 lb 15.677 oz Body Mass Index (BMI) 40.6 Intake Output: Intake and Output for Last 24 Hours 03/19/25 03/20/25 03/21/25 23:59 23:59 23:59 Intake Total 16.50 / 66.50 1018.83 / 1018.83 Output Total 2845 / 2845 Balance 16.50 / -233.50 -1826.17 / -1826.17 Lab / Micro Data 03/21/25 04:51 03/21/25 04:51 Labs: Laboratory Results - last 24 hr 03/20/25 17:33: WBC 7.8, RBC 5.11, Hgb 16.1, Hct 48.7, MCV 95.3 H, MCH 31.5, MCHC 33.1, RDW Std Deviation 53.7 H, RDW Coeff of Hair 15.2 H, Plt Count 87 L, MPV 11.3, Immature Gran % (Auto) 0.400, Neut % (Auto) 58.4, Lymph % (Auto) 31.0, (more content not included)... Normal [facility] Echo Complete W/ Contraston 03-21-2025 Echo Complete W/ Contrast [facility] Cardiovascular Services [address] [place] [address] Echo Complete W/ Contrast 03/21/25 0901 MR#: [id number] Acct: [id number] Name: KELVIN HERNANDEZ Jr. Rep #: [id number] : 1955 69 From: Krissy Freitas MD Attending Dr: Dr. Stanley Craig MD Status: ADM IN Ordering Dr: Sophia Lowe MD Date: 03/21/25 Location: PCU Sex: M C Admitted: 03/20/25 Reason For Study Reason For Study: CHF Procedure This was a 2D Doppler, Color Flow transthoracic echocardiogram. The study was technically difficult. Contrast injection was performed. Exam performed portable in patient room. Left Ventricle Normal LV size. D shaped septum in systole and diastole. Moderate concentric left ventricular hypertrophy. The estimated ejection fraction is 10-15 %. Unable to assess diastolic dysfunction due to arrhythmia. Right Ventricle Moderately dilated right ventricle. Moderate global right ventricular systolic dysfunction. Atria The left atrium is mildly enlarged. The right atrium is mildly enlarged. Mitral Valve The mitral valve is structurally normal. No prolapse or stenosis seen. Mild (1+) mitral valve insufficiency. Tricuspid Valve Normal tricuspid valve. Mild (1+) eccentric tricuspid valve insufficiency. Pulmonary artery systolic pressure is 41 mmHg. Aortic Valve Trisinus/trileaflet aortic valve. Pulmonic Valve Normal pulmonic valve. Great Vessels Mildly dilated aortic root. Pericardium/Pleural No pericardial effusion. Medication Diluted definity 2.5ml given slow IV push to enhance endocardial definition. MMode/2D Measurements Calculations LVIDd: 5.2 cm IVSd: 1.4 cm LVOT diam: 2.0 cm LVIDs: 4.9 cm LVPWd: 1.4 cm FS: 5.8 % LVOT area: 3.1 cm2 Ao root diam: 4.0 cm LAV(MOD-bp): 87.2 ml LVAd ap4: 44.7 cm2 LAV(MOD-bp) Indexed: 37.8 ml/m2 LVLd ap4: 9.7 cm LAV(MOD-sp2): 91.5 ml EDV(MOD-sp4): 168.3 ml LAV(MOD-sp4): 74.9 ml EDV(sp4-el): 174.4 ml LVAs ap4: 37.5 cm2 LVLs ap4: 8.0 cm ESV(MOD-sp4): 146.5 ml ESV(sp4-el): 148.9 ml EF(MOD-sp4): 13.0 % EF(sp4-el): 14.6 % SV(MOD-sp4): 21.8 ml SV(sp4-el): 25.5 ml LA A4 area: 24.8 cm2 SI(MOD-sp4): 9.4 ml/m2 LA dimension(2D): 5.1 cm RA A4 area: 25.9 cm2 Doppler Measurements Calculations MV E max reuben: 71.7 cm/sec Ao V2 max: 117.5 cm/sec LV V1 max: 69.3 cm/sec Ao max P.5 mmHg LV V1 max P.1 mmHg Ao V2 mean: 87.2 cm/sec LV V1 mean P.2 mmHg Ao mean P.4 mmHg LV V1 mean: 48.7 cm/sec Ao V2 VTI: 21.6 cm LV V1 VTI: 10.2 cm AV (velocity ratio): 0.47 CLAUDIO(I,D): 1.5 cm2 CLAUDIO(V,D): 1.9 cm2 SV(LVOT): 32.0 ml TR max reuben: 255.8 cm/sec TR max P.2 mmHg ECHO/Echo Complete W/ Contrast Interpretation Summary The estimated ejection fraction is 10-15 %. Moderate concentric left ventricular hypertrophy. Moderate global right ventricular systolic dysfunction. Moderately dilated right ventricle. The left atrium is mildly enlarged. The right atrium is mildly enlarged. Mild (1+) mitral valve insufficiency. Mild (1+) eccentric tricuspid valve insufficiency. Ordering Physician: Chrissy Roberson Dr., MD Referring Physician: Lee Mathews MD Performed By: Reema Shepard RCS 03/21/25 1204 Date Krissy Freitas MD CC: Dr. Sophia Lowe MD; Dr. Lee Mathews MD; Dr. Stanley Craig MD Date Dictated: 03/21/25900 Date Transcribed: 03/21/25 1204 [employer] Consultant: Signed Normal [facility] Echocardiogram study reportO rdered By: Krissy Freitas on 03-21-2025 Study report [facility] Cardiovascular Services [address] [place] [address] Echo Complete W/ Contrast 03/21/25900 MR#: [id number] Acct: [id number] Name: KELVIN HERNANDEZ Jr. Rep #:[id number] : 1955 69 From: Krissy Freitas MD Attending Dr: Dr. Stanley Craig MD Status: ADM IN Ordering Dr: Sophia Lowe MD Date: 03/21/25 Location: [facility] Sex: M C Admitted: 03/20/25 Reason For Study Reason For Study: CHF Procedure This was a 2D Doppler, Color Flow transthoracic echocardiogram. The study was technically difficult. Contrast injection was performed. Exam performed portable in patient room. Left Ventricle Normal LV size. D shaped septum in systole and diastole. Moderate concentric left ventricular hypertrophy. The estimated ejection fraction is 10-15 %. Unable to assess diastolic dysfunction due to arrhythmia. Right Ventricle Moderately dilated right ventricle. Moderate global right ventricular systolic dysfunction. Atria The left atrium is mildly enlarged. The right atrium is mildly enlarged. Mitral Valve The mitral valve is structurally normal. No prolapse or stenosis seen. Mild (1+)mitral valve insufficiency. Tricuspid Valve Normal tricuspid valve. Mild (1+) eccentric tricuspid valve insufficiency. Pulmonary artery systolic pressure is 41 mmHg. Aortic Valve Trisinus/trileaflet aortic valve. Pulmonic Valve Normal pulmonic valve. Great Vessels Mildly dilated aortic root. Pericardium/Pleural No pericardial effusion. Medication Diluted definity 2.5ml given slow IV push to enhance endocardial definition. MMode/2D Measurements & Calculations LVIDd: 5.2 cm IVSd: 1.4 cm LVOT diam: 2.0 cm LVIDs: 4.9 cm LVPWd: 1.4 cm FS: 5.8 % LVOT area: 3.1 cm2 Ao root diam: 4.0 cm LAV(MOD-bp): 87.2 ml LVAd ap4: 44.7 cm2 LAV(MOD-bp) Indexed: 37.8 ml/m2 LVLd ap4: 9.7 cm LAV(MOD-sp2): 91.5 ml EDV(MOD-sp4): 168.3 ml LAV(MOD-sp4): 74.9 ml EDV(sp4-el): 174.4 ml LVAs ap4: 37.5 cm2 LVLs ap4: 8.0 cm ESV(MOD-sp4): 146.5 ml ESV(sp4-el): 148.9 ml EF(MOD-sp4): 13.0 % EF(sp4-el): 14.6 % SV(MOD-sp4): 21.8 ml SV(sp4-el): 25.5 ml LA A4 area: 24.8 cm2 SI(MOD-sp4): 9.4 ml/m2 LA dimension(2D): 5.1 cm RA A4 area: 25.9 cm2 Doppler Measurements & Calculations MV E max reuben: 71.7 cm/sec Ao V2 max: 117.5 cm/sec LV V1 max: 69.3 cm/sec Ao max P.5 mmHg LV V1 max P.1 mmHg Ao V2 mean: 87.2 cm/sec LV V1 mean P.2 mmHg Ao mean P.4 mmHg LV V1 mean: 48.7 cm/sec Ao V2 VTI: 21.6 cm LV V1 VTI: 10.2 cm AV (velocity ratio): 0.47 CLAUDIO(I,D): 1.5 cm2 CLAUDIO(V,D): 1.9 cm2 SV(LVOT): 32.0 ml TR max reuben: 255.8 cm/sec TR max P.2 mmHg ECHO/Echo Complete W/ Contrast Interpretation Summary The estimated ejection fraction is 10-15 %. Moderate concentric left ventricular hypertrophy. Moderate global right ventricular systolic dysfunction. Moderately dilated right ventricle. The left atrium is mildly enlarged. The right atrium is mildly enlarged. Mild (1+) mitral valve insufficiency. Mild (1+) eccentric tricuspid valve insufficiency. Ordering Physician: Chrissy^Sophia^Da^^M D Referring Physician: Lee Mathews MD Performed By: Reema Shepard RCS 03/21/25 1204 Date _ Krissy Freitas MD CC: Dr. Sophia Lowe MD; Dr. Lee Mathews MD; Dr. Stanley Craig MD ~ Date Dictated: 03/21/25 09 Date Transcribed: 03/21/25 120 [employer] Consultant: Signed [facility] Work Phone: Electrocardiogram reportOrde red By: Carlton Keyes on 03-21-2025 EKG study [facility] Cardiovascular Services [address] [place] [address] 12 Lead EKG 03/20/25 1736 MR#: [id number] Acct: [id number] Name: KELVIN HERNANDEZ Rep #:[id number] : 1955 69 From: Carlton Keyes MD Attending Dr: Dr. Stanley Craig MD Status: ADM IN Ordering Dr: Roselia Han te: 03/20/25 Location: [facility] Sex: M C Admitted: 03/20/25 Test Reason : SOB Blood Pressure : */* mmHG Vent. Rate : 139 BPM Atrial Rate : * BPM P-R Int : * ms QRS Dur : 94 ms QT Int : 350 ms P-R-T Axes : * -29 99 degrees QTcB Int : 532 ms Atrial fibrillation with rapid ventricular response with premature ventricular or aberrantly conducted complexes Nonspecific T wave abnormality Abnormal ECG Confirmed by CURT DENTON, CARLTON ([id number]), editor magazine ALIN AIKEN ([id number]) on 03/21/2025 8:20:23 AM Referred By: Confirmed By: CARLTON KEYES MD 03/21/25 0820 Date _ Carlton Keyes MD CC: Dr. Lee Mathews MD; Dr. Stanley Craig MD; FELICIA Murillo ~ Signed [facility] Work Phone: [phone] 03-21-2025 Trop T High Sen 37 ng/L High <=22 [facility] Comment on above: Performed By: #### L 499.0043 #### [facility] [address] [place], [address] LDL calc ser/plasOrdered By: Sophia Lowe on 03-21-2025 Cholesterol in LDL [Mass/Vol] 44 mg/dL [facility] Comment on above: Sayvowvorl=687-123 m g/dL & Higher Gcto=906 mg/dL or greater Lipid Profileon 03-21-2025 CHOL:HDL 2.25 Normal [facility] Comment on above: Performed By: #### L 100.0100, L501.9520, L501.2300, L500.4100, L500.4050 ####[facility] [address] [place], [address] Cholesterol [Mass/Vol] 96 mg/dL Normal <=200 [facility] Comment on above: Result Comment: Chol esterol level, Desirable <200 mg/dL Borderline high cholesterol 200-239 mg/dL High cholesterol >=240 mg/dL Recommendations of the NCEP Adult Treatment Panel for the following risk-cutoff thresholds for the [place] population. Performed By: #### L 100.0100, L501.9520, L501.2300, L500.4100, L500.4050 ####[facility] [address] [place], [address] Cholesterol in HDL [Mass/Vol] 43 mg/dL Normal [facility] Comment on above: Result Comment: Marie onal Cholesterol Education Program (NCEP) guidelines: <40 mg/dL: Low HDL-cholesterol (major risk factor for CHD) >= 60 mg/dL: High HDL-cholesterol (negative risk factor for CHD) HDL-cholesterol is affected by a number of factors, e.g. smoking, exercise, hormones, sex and age. Performed By: #### L 100.0100, L501.9520, L501.2300, L500.4100, L500.4050 ####[facility] [address] [place], [address] Cholesterol in LDL [Mass/Vol] 44 mg/dL Normal [facility] Comment on above: Result Comment: Bord ywcbld=113-110 mg/dL Higher Dcek=354 mg/dL or greater Performed By: #### L 100.0100, L501.9520, L501.2300, L500.4100, L500.4050 ####[facility] [address] [place], [address] Cholesterol in VLDL [Mass/Vol] 9 mg/dL Normal 5-40 [facility] Comment on above: Performed By: #### L 100.0100, L501.9520, L501.2300, L500.4100, L500.4050 ####[facility] [address] [place], [address] Triglyceride [Mass/Vol] 47 mg/dL Normal [facility] Comment on above: Result Comment: The drugs N-Acetylcysteine and Metamizole may falsely depress this assay. Normal range: <150 mg/dL Borderline High: 150-199 mg/dL High: 200-499 mg/dL Very High: >500 mg/dL Performed By: #### L 100.0100, L501.9520, L501.2300, L500.4100, L500.4050 ####[facility] [address] [place], [address] Phosphoruson 03-21-2025 Phosphate [Mass/Vol] 3.9 mg/dL Normal 2.7-4.5 [facility] Comment on above: Performed By: #### L 100.0100, L501.9520, L501.2300, L500.4100, L500.4050 ####[facility] [address] [place], [place], [id number] Screening total cholesterol/ high density lipoprotein (HDL) cholesterol ratioOrdered By: Sophia Lowe on 03-21-2025 Cholesterol.total/Choles terol in HDL [Mass ratio] 2.25 {ratio} [facility] Serum or plasma albumin/glob ulin mass ratioOrdered By: Sophia Chrissy on 03-21-2025 Albumin/Globulin [Mass ratio] 1.4 {ratio} 0.9-2.4 [facility] Serum or plasma cholesterol in HDL measurement (mass/volume)Ordered By: Sophia Lowe on 03-21-2025 Cholesterol in HDL [Mass/Vol] 43 mg/dL >40 [facility] Comment on above: National Cholesterol Education Program (NCEP) guidelines:<40 mg/dL: Low HDL-cholesterol (major risk factor for CHD)>= 60 mg/dL: High HDL-cholesterol (negative risk factor for CHD)HDL-cholesterol is affected by a number of factors, e.g. smoking, exercise, hormones, sex and age. Serum or plasma cholesterol measurement (mass/volume)Ordered By: Sophia Lowe on 03-21-2025 Cholesterol [Mass/Vol] 96 mg/dL <201 [facility] Comment on above: Cholesterol level, D esirable <200 mg/dLBorderline high cholesterol 200-239 mg/dLHigh cholesterol >=240 mg/dLRecommendations of the NCEP Adult Treatment Panel for the following risk-cutoff thresholds for the [place] population. TSH DL <= 0.005 mIU/L QnOrde red By: Sophia Lowe on 03-21-2025 TSH Qn 1.460 uIU/mL 0.300-4.200 [facility] Thyroid Stim Hormone (TSH)on 03-21-2025 TSH 1.460 uIU/mL Normal 0.300-4.200 [facility] Comment on above: Performed By: #### L 100.0100, L501.9520, L501.2300, L500.4100, L500.4050 ####[facility] [address] [place], [place], [id number] Triglycerides measurementOrd ered By: Sophia Lowe on 03-21-2025 Triglyceride [Mass/Vol] 47 mg/dL <199 [facility] Comment on above: The drugs N-Acetylcy steine and Metamizole may falsely depress this assay. Normal range: <150 mg/dLBorderline High: 150-199 mg/dLHigh: 200-499 mg/dLVery High: >500 mg/dL 12 Lead EKGon 03-20-2025 12 Lead EKG [facility] Cardiovascular Services [address] [place] [address] 12 Lead EKG 03/20/25 1736 MR#: [id number] Acct: [id number] Name: KELVIN HERNANDEZ Jr. Rep #: [id number] : 1955 69 From: Carlton Keyes MD Attending Dr: Dr. Stanley Craig MD Status: ADM IN Ordering Dr: Roselia Han Date: 03/20/25 Location: [facility] Sex: M C Admitted: 03/20/25 Test Reason : SOB Blood Pressure : */* mmHG Vent. Rate : 139 BPM Atrial Rate : * BPM P-R Int : * ms QRS Dur : 94 ms QT Int : 350 ms P-R-T Axes : * -29 99 degrees QTcB Int : 532 ms Atrial fibrillation with rapid ventricular response with premature ventricular or aberrantly conducted complexes Nonspecific T wave abnormality Abnormal ECG Confirmed by CARLTON KEYES MD ([id number]), editor magazine ALIN AIKEN ([id number]) on 03/21/2025 8:20:23 AM Referred By: Confirmed By: CARLTON KEYES MD 03/21/25 0820 Date Carlton Keyes MD CC: Dr. Lee Mathews MD; Dr. Stanley Craig MD; FELICIA Murillo Signed Normal [facility] Basic Metabolic Profile (BMP )on 03-20-2025 BUN/CRE 16.9 RATIO Normal -20 [facility] Comment on above: Performed By: #### L 100.0100, L500.2500 #### [facility] [address] [place], [address] Calcium [Mass/Vol] 8.1 mg/dL Normal 7.6-11.0 [facility] Comment on above: Performed By: #### L 100.0100, L500.2500 #### [facility] [address] [place], [address] Chloride [Moles/Vol] 93 mmol/L Low 98-108 [facility] Comment on above: Performed By: #### L 100.0100, L500.2500 #### [facility] [address] [place], [address] CO2 [Moles/Vol] 30.7 mmol/L Normal 21.0-32.0 [facility] Comment on above: Performed By: #### L 100.0100, L500.2500 #### [facility] [address] [place], [address] Creatinine [Mass/Vol] 1.50 mg/dL High 0.70-1.20 [facility] Comment on above: Performed By: #### L 100.0100, L500.2500 #### [facility] [address] [place], [address] ECRCL 58.08 ml/min Normal 50-250 [facility] Comment on above: Performed By: #### L 100.0100, L500.2500 #### [facility] [address] [place], [address] GAP 10 Normal 5-15 [facility] Comment on above: Performed By: #### L 100.0100, L500.2500 #### [facility] [address] [place], [address] GFR/1.73 sq M.predicted among non-blacks MDRD (S/P/Bld) [Vol rate/Area] 49 mL/min/{1.73_m2} Low >60 [facility] Comment on above: Result Comment: mL/m in/1.73m2 CKD-EPI Creatinine Equation (2020) Performed By: #### L 100.0100, L500.2500 #### [facility] [address] [place], [address] Glucose [Mass/Vol] 108 mg/dL High 70-99 [facility] Comment on above: Performed By: #### L 100.0100, L500.2500 #### [facility] [address] [place], [address] Potassium [Moles/Vol] 4.3 mmol/L Normal 3.3-5.1 [facility] Comment on above: Performed By: #### L 100.0100, L500.2500 #### [facility] [address] [place], [address] Sodium [Moles/Vol] 133 mmol/L Normal 133-145 [facility] Comment on above: Performed By: #### L 100.0100, L500.2500 #### [facility] [address] [place], [address] Urea nitrogen [Mass/Vol] 25 mg/dL High 4-19 [facility] Comment on above: Performed By: #### L 100.0100, L500.2500 #### [facility] [address] [place], [address] Blood polychromasia detectio n by light microscopyOrdered By: Roselia Han on 03-20-2025 Polychromasia LM Ql (Bld) 1+ [facility] CBC W/Diff, Automatedon Anisocytosis Ql (Bld) 1+ Normal [facility] Comment on above: Performed By: #### L 100.0100, L500.2500 #### [facility] [address] [place], [address] PLT EST MOD DEC Normal ADEQ [facility] Comment on above: Performed By: #### L 100.0100, L500.2500 #### [facility] [address] [place], [address] POLYCHROMASIA 1+ Normal [facility] Comment on above: Performed By: #### L 100.0100, L500.2500 #### [facility] [address] [place], [address] Chest PA and Lateralon 03-20 Chest PA and Lateral [facility] Imaging Services [address] [place] [address] Chest PA and Lateral MR#: [id number] Acct: [id number] Name: KELVIN HERNANDEZ Jr. Rep #: [id number] : 1955 M 69 From: Jorge porter MD PCP: Dr. Lee Matehws MD Status: REG ER Study: Chest PA and Lateral Date of Exam: 03/20/25 Exam# [id number] Ordering Dr: Roselia Han PROCEDURE: CHEST PA AND LATERAL 03/20/2025 REASON FOR EXAM: SOB TECHNIQUE: Frontal and lateral views of the chest. COMPARISON: CT chest 12/05/2018 and chest radiograph 03/03/2025 FINDINGS: Hardware: None Heart: Heart size is mildly enlarged. Mediastinum: The mediastinal contour is unremarkable. Lungs: Mild interstitial thickening. Bibasilar atelectasis. No pneumothorax. No focal consolidation. Bones: Degenerative changes are identified within the thoracic spine. RAD/Chest PA and Lateral IMPRESSION: Findings suggestive of vascular congestion. Reading Location: [facility] CC: Dr. Lee Mathews MD; FELICIA Murillo [employer] Consultant: Signed Normal [facility] Emergency Department Summary on 03-20-2025 Emergency Department Summary [facility] Medical Records Department [address] [place] [address] Emergency Department Summary 03/20/25 MR#: [id number] Acct: [id number] Name: KELVIN HERNANDEZ Jr. Rep #: [id number] : 1955 69 From: Dae Mckeon MD PCP: Dr. Lee Mathews MD Status:ADM IN Location: [place] [address] HPI History of Present Illness Chief Complaint: Abn Labs Narrative Narrative: Patient presenting today due to dyspnea with exertion and bilateral leg swelling that has been ongoing for about a month but progressively worsening. He reports feeling short of breath even with trying to get up out of his chair. His PCP recently increased his Lasix and is suspicious that he has CHF. However, despite increasing his Lasix his symptoms have worsened. He reports that he has gained 6 pounds in the past 2 days. He is scheduled to have an outpatient echocardiogram next week. He did have outpatient labs performed yesterday and had a follow-up with his PCP today, PCP recommended he come into the emergency department so that he can be admitted to the hospital. He is on Eliquis due to history of A-fib. Additionally reports history of COPD, no longer uses tobacco. He denies any fevers, chills, chest pain, or recent illness. [facility] Medical History (Updated 03/20/25 @ 20:38 by FELICIA Murillo) PAF (paroxysmal atrial fibrillation) CKD (chronic kidney disease), stage II Thrombocytopenia COPD (chronic obstructive pulmonary disease) Morbid obesity HLD (hyperlipidemia) HTN (hypertension) Tobacco use Anxiety and depression Cancer Home Medications ???Medication ???Instructions ???Recorded ???Last Taken ???Type lisinopril 20 mg tablet 20 mg PO QDAY hyperte 06/22/18 05:30 History albuterol sulfate 90 mcg/actuation 2 puff inhalation 4X/DAY PRN PRN 03/20/25 Unknown History aerosol inhaler shortness of breath or wheezing apixaban 5 mg tablet (Eliquis) 5 mg PO BID t 03/20/25 Unknown His tory furosemide 20 mg tablet 20 mg PO BID PRN water pill Unknown History metoprolol tartrate 50 mg tablet 50 mg PO BID hypertension 03/20/25 Unknown History Allergy/AdvReac Type Severity Reaction Status Date / Time sertraline (From Zoloft) Allergy Other Verified 03/20/25 17:24 Family History Father History of blood clots Lupus Bowel disease Colon cancer Skin cancer CVA (cerebral vascular accident) Mother Hypertension Surgical History History of appendectomy Social History Smoking Status: Current some day smoker tobacco type: cigarettes additional social history: DOES USE ASPIRIN ROS ROS ED Constitutional Constitutional ED: Denies chills or fever(s) Cardiovascular Cardiovascular: Denies chest pain Respiratory/Chest Respiratory/Chest: Reports dyspnea on exertion; Denies cough Gastrointestinal Gastrointestinal: Denies abdominal pain, nausea or vomiting Musculoskeletal Musculoskeletal: Denies arthralgias or myalgias Integumentary Denies rash Neurologic Neurologic: Denies weakness EXAM Physical Exam Const Vital Signs: 03/20/25 17:24 03/20/25 17:25 03/20/25 18:06 Temperature 98.7 F Temperature Source Oral Pulse Rate 66 61 Respiratory Rate 18 12 Respiratory Pattern Normal Blood Pressure 104/89 H Blood Pressure Mean 94 Blood Pressure Source Pulse Ox 98 95 Oxygen Delivery Method Room Air Room Air 03/20/25 18:30 03/20/25 19:00 03/20/25 19:42 Temperature Temperature Source Pulse Rate 120 H 130 H 125 H Respiratory Rate 23 H 23 H 18 Respiratory Pattern Blood Pressure 95/82 H 107/85 H 128/57 H Blood Pressure Mean 86 92 80 Blood Pressure Source Monitor Pulse Ox 94 97 Oxygen Delivery Method Room Air 03/20/25 20:00 03/20/25 20:00 Temperature 97.9 F Temperature Source Pulse Rate 92 97 Respiratory Rate 18 18 Respiratory Pattern Blood Pressure 114/78 114/78 Blood Pressure Mean 90 90 Blood Pressure Source Pulse Ox 97 96 Oxygen Delivery Method Room Air Positive well nourished, well developed and no apparent distress General Appearance ED: well developed HEENT Reports normocephalic and head/scalp atraumatic Mouth ED: Yes moist mucous membranes normal Eyes PERRL and EOMs intact bilaterally Neck full ROM and supple Chest Wall inspection of chest normal Resp normal respiratory effort and clear to auscultation bilaterally Cardio regular rate and regular rhythm GI soft to palpation, non-tender, non-distended and no masses Back/Spine normal ROM and normal to inspection Extremity full ROM Extremity Narrativ (more content not included)... Normal [facility] H AND P Exam - [facility] 03-20-2025 H&P Exam - Hospitalist [facility] Medical Records Department [address] [place] [address] H P Exam - Hospitalist 03/20/251950 MR#: [id number] Acct: [id number] Name: KELVIN HERNANDEZ Jr. Rep #: [id number] : 1955 69 From: Sophia Lowe MD PCP: Dr. Lee Mathews MD Status:ADM IN Location: [facility] [id number] HPI - General General Date of Admission: 03/20/25 Date of Service: 03/20/25 Chief Complaint: Dyspnea, orthopnea, weight gain, edema. HPI Narrative The patient is a 69 y/o M w/ PMHx: Morbid obesity, HTN, HLD, Anxiety and Depression, COPD, Tobacco use, HFrEF, PAF who presents to the [facility] ED on 03/20/2025 with history of approximately 4 weeks of progressively worsening dyspnea, worse with exertion, bilateral lower extremity swelling and weight gain as well as orthopnea with PCP evaluation with suspicion for heart failure with Lasix administration however despite this he has continued to gain weight noting that he is gained 6 pounds over the last 2 days alone with planned outpatient PCP with repeat labs today prior however given his worsened status PCP recommended presented to the ED for evaluation. PCP did perform an outpatient BNP that was noted to be 8957. He notes that he has gained approximately 50 pounds over the last couple months. Workup in the ED included T98.7, heart rate 66, BP 104/89, respiratory rate 18, 90% on room air with most recent repeat vitals heart rate 130, BP 107/85, respiratory rate 23, 94% room air, CBC w/ WBC 7.8, Hgb 16.1, Plts 87 without shift, BMP with chloride 93, BUN/creatinine 25/1.50, GFR 49, glucose 108, CXR with mild cephalization, mild blunting BL bases however final read pending per radiology, EKG with atrial fibrillation with RVR. In ED patient ministered metoprolol 5 mg IV x 1, digoxin 250 mcg IV x 1. BP did improve therefore per discussion with the patient currently being to cardizem drip given no marked change in rate. PFSH Medical History PAF (paroxysmal atrial fibrillation) CKD (chronic kidney disease), stage II Thrombocytopenia COPD (chronic obstructive pulmonary disease) Morbid obesity HLD (hyperlipidemia) HTN (hypertension) Tobacco use Anxiety and depression Cancer Home Medications ???Medication ???Instructions ???Recorded ???Last Taken ???Type lisinopril 20 mg tablet 20 mg PO QDAY hyperte 06/22/18 05:30 History albuterol sulfate 90 mcg/actuation 2 puff inhalation 4X/DAY PRN PRN 03/20/25 Unknown History aerosol inhaler shortness of breath or wheezing apixaban 5 mg tablet (Eliquis) 5 mg PO BID t 03/20/25 Unknown His tory furosemide 20 mg tablet 20 mg PO BID PRN water pill Unknown History metoprolol tartrate 50 mg tablet 50 mg PO BID hypertension 03/20/25 Unknown History Allergy/AdvReac Type Severity Reaction Status Date / Time sertraline (From Zoloft) Allergy Other Verified 03/20/25 17:24 Family History Father History of blood clots Lupus Bowel disease Colon cancer Skin cancer CVA (cerebral vascular accident) Mother Hypertension Surgical History History of appendectomy Social History (Updated 03/20/25 @ 20:[address] Sophia Lowe MD) household members: spouse Smoking Status: Current some day smoker tobacco type: cigarettes alcohol intake: never substance use type: does not use additional social history: DOES USE ASPIRIN ROS ROS Narrative Admission Review of Systems: CONSTITUTIONAL: No weight loss, fever, chills, + weakness or fatigue. HEENT: Eyes: No visual loss, blurred vision, double vision or yellow sclerae. Ears, Nose, Throat: No hearing loss, sneezing, congestion, runny nose or sore throat. SKIN: No rash or itching, lesions, wounds. CARDIOVASCULAR: + Dyspnea, orthopnea, edema, weight gain. No palpitations, syncopal events. RESPIRATORY: + Dyspnea, worse with exertion. No wheezing, hemoptysis. GASTROINTESTINAL: No anorexia, nausea, vomiting or diarrhea, abdominal pain, melena, BRBPR. GENITOURINARY: No dysuria, frequency, urgency or retention. NEUROLOGICAL: No headache, dizziness, syncope, paralysis, ataxia, numbness or tingling in the extremities, focal weakness, change in bowel or bladder control, seizure. MUSCULOSKELETAL: + muscle, back pain, joint pain or stiffness. HEMATOLOGIC: No anemia. + Easy bleeding/bruising. LYMPHATICS: No enlarged nodes. No history of splenectomy. PSYCHIATRIC: + History of anxiety and depression. ENDOCRINOLOGIC: No reports of sweating, cold or heat intolerance. No polyuria or polydipsia. ALLERGIES: + History of allergic rhinitis. Vital Signs Vital Signs Vital Signs: 03/20/25 17:24 03/20/25 17:25 03/20/25 18:06 Temperature 98.7 F (more content not included)... Normal [facility] L499.0042on 03-20-2025 Trop T High Sen 39 ng/L High <=22 [facility] Comment on above: Performed By: #### L 300.4310, L300.3900 #### [facility] [address] [place], [address] L501.4021on 03-20-2025 Trop T High Sen 39 ng/L High <=22 [facility] Comment on above: Performed By: #### L 300.4310, L300.3900 #### [facility] [address] [place], [address] Laboratory - Hematology and Cell countsOrdered By: Roselia Han on 03-20-2025 Anisocytosis Ql (Bld) 1+ [facility] Magnesiumon 03-20-2025 Magnesium [Mass/Vol] 2.0 mg/dL Normal 1.5-2.2 [facility] Comment on above: Order Comment: Comme nts: may add to ED labs Performed By: #### L 300.4310, L300.3900 #### [facility] [address] [place], [place], [id number] Platelet estimateOrdered By: Roselia Han on 03-20-2025 Platelets LM Ql (Bld) MOD DEC ADEQ [facility] Anion gap in Serum or Plasma Ordered By: Lee Mathews on 03-18-2025 Anion gap [Moles/Vol] 11 mmol/L 5-15 [facility] BUN/creatinine ratioOrdered By: Lee Mathews on 03-18-2025 Urea nitrogen/Creatinine [Mass ratio] 17.4 mg/mg 10-20 [facility] Bilirubin, totalOrdered By: Lee Mathews on 03-18-2025 Bilirubin [Mass/Vol] 0.85 mg/dL 0.00-1.30 [facility] Carbon dioxide, total [Moles /volume] in Central venous bloodOrdered By: Lee Mathews on 03-18-2025 CO2 [Moles/Vol] 29.1 mmol/L 21.0-32.0 [facility] Chloride assayOrdered By: Gilberto Mathews on 03-18-2025 Chloride [Moles/Vol] 98 mmol/L 98-108 [facility] Comprehensive Metabolic Prof ilon 03-18-2025 Albumin [Mass/Vol] 3.6 g/dL Normal 3.4-4.8 [facility] Comment on above: Performed By: #### L 300.4310, L300.3900 #### [facility] [address] [place], [address] Albumin/Globulin [Mass ratio] 1.5 {ratio} Normal 0.9-2.4 [facility] Comment on above: Performed By: #### L 300.4310, L300.3900 #### [facility] [address] [place], [address] ALK PHOS 128 U/L Normal 40-129 [facility] Comment on above: Performed By: #### L 300.4310, L300.3900 #### [facility] [address] [place], [address] ALT [Catalytic activity/Vol] 45 U/L Normal <=46 [facility] Comment on above: Performed By: #### L 300.4310, L300.3900 #### [facility] [address] [place], [address] AST [Catalytic activity/Vol] 44 U/L High <=37 [facility] Comment on above: Performed By: #### L 300.4310, L300.3900 #### [facility] [address] [place], [address] Bilirubin [Mass/Vol] 0.85 mg/dL Normal 0.00-1.30 [facility] Comment on above: Performed By: #### L 300.4310, L300.3900 #### [facility] [address] [place], [address] BUN/CRE 17.4 RATIO Normal 10-20 [facility] Comment on above: Performed By: #### L 300.4310, L300.3900 #### [facility] [address] [place], [address] Calcium [Mass/Vol] 8.1 mg/dL Normal 7.6-11.0 [facility] Comment on above: Performed By: #### L 300.4310, L300.3900 #### [facility] [address] [place], [address] Chloride [Moles/Vol] 98 mmol/L Normal 98-108 [facility] Comment on above: Performed By: #### L 300.4310, L300.3900 #### [facility] [address] [place], [address] CO2 [Moles/Vol] 29.1 mmol/L Normal 21.0-32.0 [facility] Comment on above: Performed By: #### L 300.4310, L300.3900 #### [facility] [address] [place], [address] Creatinine [Mass/Vol] 1.21 mg/dL High 0.70-1.20 [facility] Comment on above: Performed By: #### L 300.4310, L300.3900 #### [facility] [address] [place], [address] GAP 11 Normal 5-15 [facility] Comment on above: Performed By: #### L 300.4310, L300.3900 #### [facility] [address] [place], [address] GFR/1.73 sq M.predicted among non-blacks MDRD (S/P/Bld) [Vol rate/Area] 64 mL/min/{1.73_m2} Normal >60 [facility] Comment on above: Result Comment: mL/m in/1.73m2 CKD-EPI Creatinine Equation (2020) Performed By: #### L 300.4310, L300.3900 #### [facility] [address] [place], [address] Globulin (S) [Mass/Vol] 2.4 g/dL Normal 2.2-4.2 [facility] Comment on above: Performed By: #### L 300.4310, L300.3900 #### [facility] [address] [place], [address] Glucose [Mass/Vol] 94 mg/dL Normal 70-99 [facility] Comment on above: Performed By: #### L 300.4310, L300.3900 #### [facility] [address] [place], [address] Potassium [Moles/Vol] 3.9 mmol/L Normal 3.3-5.1 [facility] Comment on above: Performed By: #### L 300.4310, L300.3900 #### [facility] [address] [place], [address] Sodium [Moles/Vol] 139 mmol/L Normal 133-145 [facility] Comment on above: Performed By: #### L 300.4310, L300.3900 #### [facility] [address] [place], [address] T PROT 6.0 g/dL Normal 5.9-8.4 [facility] Comment on above: Performed By: #### L 300.4310, L300.3900 #### [facility] [address] [place], [address] Urea nitrogen [Mass/Vol] 21 mg/dL High 4-19 [facility] Comment on above: Performed By: #### L 300.4310, L300.3900 #### [facility] [address] [place], [address] Glomerular filtration rate ( GFR) estimation/1.73 sq m using serum, plasma, or whole bOrdered By: Lee Mathews on 03-18-2025 GFR/1.73 sq M.predicted among non-blacks MDRD (S/P/Bld) [Vol rate/Area] 64 mL/min/{1.73_m2} >60 [facility] Comment on above: mL/min/1.73m2 CKD-EP I Creatinine Equation (2020) L503.7505on 03-18-2025 Natriuretic peptide B (Bld) [Mass/Vol] 8957 pg/mL High <=900 [facility] Comment on above: Result Comment: Hear t Failure Unlikely: < 300 pg/mL Heart Failure Likely < 50 Years: > 450 pg/mL 50-75 Years: > 900 pg/mL >75 Years: > 1800 pg/mL Performed By: #### L 300.4310, L300.3900 #### [facility] [address] [place], [address] Laboratory - Chemistry and C hemistry - challengeOrdered By: Lee Mathews on 03-18-2025 AST [Catalytic activity/Vol] 44 U/L High <38 [facility] Natriuretic peptide.B prohor grealdine N-Terminal [Mass/volume] in Serum or PlasmaOrdered By: Lee Mathews on 03-18-2025 Natriuretic peptide.B prohormone N-Terminal [Mass/Vol] 8957 pg/mL High <900 [facility] Comment on above: Heart Failure Unlike ly: < 300 pg/mLHeart Failure Likely< 50 Years: > 450 pg/mL50-75 Years: > 900 pg/mL>75 Years: > 1800 pg/mL Potassium measurement (mass/ volume)Ordered By: Lee Mathews on 03-18-2025 Potassium (Unsp spec) [Mass/Vol] 3.9 mmol/L 3.3-5.1 [facility] Serum creatinine measurement (mass/volume)Ordered By: Lee Mathews on 03-18-2025 Creatinine [Mass/Vol] 1.21 mg/dL High 0.70-1.20 [facility] Serum globulin measurementOr dered By: Lee Mathews on 03-18-2025 Globulin (S) [Mass/Vol] 2.4 g/dL 2.2-4.2 [facility] Serum glucose measurement (m ass/volume)Ordered By: Lee Mathews on 03-18-2025 Glucose [Mass/Vol] 94 mg/dL 70-99 [facility] Serum or plasma alanine andre otransferase (ALT) measurementOrdered By: Lee Mathews on 03-18-2025 ALT [Catalytic activity/Vol] 45 U/L <47 [facility] Serum or plasma albumin jennifer urement (mass/volume)Ordered By: Lee Mathews on 03-18-2025 Albumin [Mass/Vol] 3.6 g/dL 3.4-4.8 [facility] Serum or plasma albumin/glob ulin mass ratioOrdered By: Lee Mathews on 03-18-2025 Albumin/Globulin [Mass ratio] 1.5 {ratio} 0.9-2.4 [facility] Serum or plasma alkaline elisabeth sphatase measurementOrdered By: Lee Mathews on 03-18-2025 ALP [Catalytic activity/Vol] 128 U/L 40-129 [facility] Serum or plasma calcium jennifer urement (mass/volume)Ordered By: Lee Mathews on 03-18-2025 Calcium [Mass/Vol] 8.1 mg/dL 7.6-11.0 [facility] Serum or plasma urea nitroge n measurement (mass/volume)Ordered By: Lee Mathews on 03-18-2025 Urea nitrogen [Mass/Vol] 21 mg/dL High 4-19 [facility] Sodium levelOrdered By: Carrierony blair Bisi on 03-18-2025 Sodium [Moles/Vol] 139 mmol/L 133-145 [facility] Total proteinOrdered By: Carrie amadatopher Mathews on 03-18-2025 Protein [Mass/Vol] 6.0 g/dL 5.9-8.4 [facility] Absolute lymphocyte countOrd ered By: Lee Mathews on 03-03-2025 Lymphocytes Auto (Unsp spec) [#/Vol] 2.04 10*3/uL 0.83-4.51 [facility] Absolute neutrophil countOrd ered By: Lee Mathews on 03-03-2025 Neutrophils (Bld) [#/Vol] 5.3 10*3/uL 2.0-7.7 [facility] Anion gap in Serum or Plasma Ordered By: Lee Mathews on 03-03-2025 Anion gap [Moles/Vol] 11 mmol/L 5- [facility] Automated lymphocyte count a s percentage of total leukocytesOrdered By: Lee Mathews on 03-03-2025 Lymphocytes/100 WBC Auto (Unsp spec) 25.4 % 19-41 [facility] BUN/creatinine ratioOrdered By: Lee Mathews on 03-03-2025 Urea nitrogen/Creatinine [Mass ratio] 15.7 mg/mg 10-20 [facility] Basophil percentageOrdered B y: Lee Mathews on 03-03-2025 Basophils/100 WBC (Bld) 0.5 % 0-1 [facility] Bilirubin, totalOrdered By: Lee Mathews on 03-03-2025 Bilirubin [Mass/Vol] 0.83 mg/dL 0.00-1.30 [facility] CBC W/Diff, Automatedon 02-18 Absolute Lymph 2.04 X10 3/uL Normal 0.83-4.51 [facility] Comment on above: Performed By: #### L 300.4310, L300.3900 #### [facility] [address] [place], [address] Absolute Neut 5.3 X10 3/uL Normal 2.0-7.7 [facility] Comment on above: Performed By: #### L 300.4310, L300.3900 #### [facility] [address] [place], [address] Basophils/100 WBC (Bld) 0.5 % Normal 0-1 [facility] Comment on above: Performed By: #### L 300.4310, L300.3900 #### [facility] [address] [place], [address] Eosinophils/100 WBC (Bld) 0.2 % Normal 0-5 [facility] Comment on above: Performed By: #### L 300.4310, L300.3900 #### [facility] [address] [place], [address] Erythrocyte distribution width (RBC) [Ratio] 14.5 % Normal 11.6-14.6 [facility] Comment on above: Performed By: #### L 300.4310, L300.3900 #### [facility] [address] [place], [address] Hematocrit (Bld) [Volume fraction] 44.6 % Normal 40-54 [facility] Comment on above: Performed By: #### L 300.4310, L300.3900 #### [facility] [address] [place], [address] Hemoglobin (Bld) [Mass/Vol] 15.1 g/dL Normal 13.0-16.5 [facility] Comment on above: Performed By: #### L 300.4310, L300.3900 #### [facility] [address] [place], [address] IG% 0.400 Normal 0.0-0.9 [facility] Comment on above: Result Comment: IG% - Immature Granulocytes (promyelocytes, myelocytes and metamyelocytes) > 1% indicates that a LEFT SHIFT is Present. Performed By: #### L 300.4310, L300.3900 #### [facility] [address] [place], [address] Lymphocytes/100 WBC (Bld) 25.4 % Normal 19-41 [facility] Comment on above: Performed By: #### L 300.4310, L300.3900 #### [facility] [address] [place], [address] MCH (RBC) [Entitic mass] 31.6 pg Normal 27.0-32.0 [facility] Comment on above: Performed By: #### L 300.4310, L300.3900 #### [facility] [address] [place], [address] MCHC (RBC) [Mass/Vol] 33.9 g/dL Normal 32-36 [facility] Comment on above: Performed By: #### L 300.4310, L300.3900 #### [facility] [address] [place], [address] MCV (RBC) [Entitic vol] 93.3 fL Normal 80-94 [facility] Comment on above: Performed By: #### L 300.4310, L300.3900 #### [facility] [address] [place], [address] Monocytes/100 WBC (Bld) 8.0 % Normal 0-10 [facility] Comment on above: Performed By: #### L 300.4310, L300.3900 #### [facility] [address] [place], [address] Neutrophils/100 WBC (Bld) 65.5 % Normal 47-70 [facility] Comment on above: Performed By: #### L 300.4310, L300.3900 #### [facility] [address] [place], [address] Nucleated RBC (Bld) [#/Vol] 0 10*3/uL Normal 0-5 [facility] Comment on above: Performed By: #### L 300.4310, L300.3900 #### [facility] [address] [place], [address] Platelet mean volume (Bld) [Entitic vol] 10.0 fL Normal 6.2-12.0 [facility] Comment on above: Performed By: #### L 300.4310, L300.3900 #### [facility] [address] [place], [address] Platelets (Bld) [#/Vol] 100 10*3/uL Low 150-450 [facility] Comment on above: Performed By: #### L 300.4310, L300.3900 #### [facility] [address] [place], [address] RBC (Bld) [#/Vol] 4.78 10*6/uL Normal 4.6-6.2 [facility] Comment on above: Performed By: #### L 300.4310, L300.3900 #### [facility] [address] [place], [address] RDW SD 49.9 fl High 35.1-43.9 [facility] Comment on above: Performed By: #### L 300.4310, L300.3900 #### [facility] [address] [place], [address] WBC (Bld) [#/Vol] 8.0 10*3/uL Normal 4.4-11.0 [facility] Comment on above: Performed By: #### L 300.4310, L300.3900 #### [facility] [address] [place], [place], [address] Carbon dioxide, total [Moles /volume] in Central venous bloodOrdered By: Lee Mathews on 03-03-2025 CO2 [Moles/Vol] 28.6 mmol/L 21.0-32.0 [facility] Chest PA and Lateralon 03-03 Chest PA and Lateral [facility] [address] [place] [address] Chest PA and Lateral MR#: [id number] Acct: [id number] Name: KELVIN HERNANDEZ JrSavita Rep #: [id number] : 1955 M 69 From: Russel banuelos MD PCP: Dr. Lee Mathews MD Status: REG CLI Study: Chest PA and Lateral Date of Exam: 03/03/25 Exam# [id number] Ordering Dr: Lee Mathews PROCEDURE: CHEST PA AND LATERAL 03/03/2025 REASON FOR EXAM: COPD TECHNIQUE: Frontal and lateral views of the chest. COMPARISON: None FINDINGS: The lungs are expanded. There is no demonstrated parenchymal abnormality. There is no demonstrated pleural abnormality. The heart is upper limits of normal in size. Normal mediastinum and jeremías. Normal visualized pulmonary arteries. The aorta is calcified. Normal visualized thoracic spine. Normal visualized ribs, clavicles, and shoulders. There is no demonstrated abnormality of the visualized soft tissue structures of the upper abdomen. RAD/Chest PA and Lateral IMPRESSION: Normal x-ray examination of the chest. IMPRESSION: Borderline cardiomegaly. No evidence of active or chronic tuberculosis. Reading Location: [place] [address] CC: Dr. Lee Mathews MD [employer] Consultant: Signed Normal [facility] Chloride assayOrdered By: Gilberto Mathews on 03-03-2025 Chloride [Moles/Vol] 94 mmol/L Low 98-108 [facility] Comprehensive Metabolic Prof ilon 03-03-2025 Albumin [Mass/Vol] 3.8 g/dL Normal 3.4-4.8 [facility] Comment on above: Performed By: #### L 499.0043 #### [facility] [address] [place], [address] Albumin/Globulin [Mass ratio] 1.6 {ratio} Normal 0.9-2.4 [facility] Comment on above: Performed By: #### L 499.0043 #### [facility] [address] [place], [address] ALK PHOS 73 U/L Normal 40-129 [facility] Comment on above: Performed By: #### L 499.0043 #### [facility] [address] [place], [address] ALT [Catalytic activity/Vol] 25 U/L Normal <=46 [facility] Comment on above: Performed By: #### L 499.0043 #### [facility] [address] [place], [address] AST [Catalytic activity/Vol] 31 U/L Normal <=37 [facility] Comment on above: Performed By: #### L 499.0043 #### [facility] [address] [place], [address] Bilirubin [Mass/Vol] 0.83 mg/dL Normal 0.00-1.30 [facility] Comment on above: Performed By: #### L 499.0043 #### [facility] [address] [place], [address] BUN/CRE 15.7 RATIO Normal 10-20 [facility] Comment on above: Performed By: #### L 499.0043 #### [facility] [address] [place], [address] Calcium [Mass/Vol] 8.8 mg/dL Normal 7.6-11.0 [facility] Comment on above: Performed By: #### L 499.0043 #### [facility] [address] [place], [address] Chloride [Moles/Vol] 94 mmol/L Low 98-108 [facility] Comment on above: Performed By: #### L 499.0043 #### [facility] [address] [place], [address] CO2 [Moles/Vol] 28.6 mmol/L Normal 21.0-32.0 [facility] Comment on above: Performed By: #### L 499.0043 #### [facility] [address] [place], [address] Creatinine [Mass/Vol] 1.06 mg/dL Normal 0.70-1.20 [facility] Comment on above: Performed By: #### L 499.0043 #### [facility] [address] [place], [address] GAP 11 Normal 5-15 [facility] Comment on above: Performed By: #### L 499.0043 #### [facility] [address] [place], [address] GFR/1.73 sq M.predicted among non-blacks MDRD (S/P/Bld) [Vol rate/Area] 75 mL/min/{1.73_m2} Normal >60 [facility] Comment on above: Result Comment: mL/m in/1.73m2 CKD-EPI Creatinine Equation (2020) Performed By: #### L 499.0043 #### [facility] [address] [place], [address] Globulin (S) [Mass/Vol] 2.4 g/dL Normal 2.2-4.2 [facility] Comment on above: Performed By: #### L 499.0043 #### [facility] [address] [place], [address] Glucose [Mass/Vol] 98 mg/dL Normal 70-99 [facility] Comment on above: Performed By: #### L 499.0043 #### [facility] [address] [place], [address] Potassium [Moles/Vol] 4.0 mmol/L Normal 3.3-5.1 [facility] Comment on above: Performed By: #### L 499.0043 #### [facility] [address] [place], [address] Sodium [Moles/Vol] 134 mmol/L Normal 133-145 [facility] Comment on above: Performed By: #### L 499.0043 #### [facility] [address] [place], [address] T PROT 6.1 g/dL Normal 5.9-8.4 [facility] Comment on above: Performed By: #### L 499.0043 #### [facility] [address] [place], [address] Urea nitrogen [Mass/Vol] 17 mg/dL Normal 4-19 [facility] Comment on above: Performed By: #### L 499.0043 #### [facility] [address] [place], [address] Eosinophil percentageOrdered By: Lee Mathews on 03-03-2025 Eosinophils/100 WBC (Bld) 0.2 % 0-5 [facility] Erythrocyte distribution wid th (RBC) [Ratio]Ordered By: Lee Mathews on 03-03-2025 Erythrocyte distribution width (RBC) [Entitic vol] 49.9 fL High 35.1-43.9 [facility] Erythrocyte distribution wid th ratioOrdered By: Lee Mathews on 03-03-2025 Erythrocyte distribution width (RBC) [Ratio] 14.5 % 11.6-14.6 [facility] Erythrocyte distribution wid th standard deviationOrdered By: Lee Mathews on 03-03-2025 Erythrocyte distribution width (RBC) [Ratio] 49.9 fl High 35.1-43.9 [facility] GFR/1.73 sq M.predicted shantanu g non-blacks MDRD (S/P/Bld) [Vol rate/Area]Ordered By: Lee Mathews on 03-03-2025 Estimated GFR (MDRD) Non-Af Amer 75 >60 [facility] Comment on above: mL/min/1.73m2 CKD-EP I Creatinine Equation (2020) Glomerular filtration rate ( GFR) estimation/1.73 sq m using serum, plasma, or whole bOrdered By: Lee Mathews on 03-03-2025 GFR/1.73 sq M.predicted among non-blacks MDRD (S/P/Bld) [Vol rate/Area] 75 mL/min/{1.73_m2} >60 [facility] Comment on above: mL/min/1.73m2 CKD-EP I Creatinine Equation (2020) Hematocrit Auto (Bld) [Volum e fraction]Ordered By: Lee Mathews on 03-03-2025 Hematocrit (Bld) [Volume fraction] 44.6 % 40-54 [facility] Hemoglobin measurementOrdere d By: Lee Mathews on 03-03-2025 Hemoglobin (Bld) [Mass/Vol] 15.1 g/dL 13.0-16.5 [facility] Immature granulocytes/100 WB C Auto (Bld)Ordered By: Lee Mathews on 03-03-2025 Immature granulocytes/100 WBC (Bld) 0.400 % 0.0-0.9 [facility] Comment on above: IG% - Immature Granu locytes (promyelocytes, myelocytes and metamyelocytes) > 1% indicates that a LEFT SHIFT is Present. L503.7505on 03-03-2025 Natriuretic peptide B (Bld) [Mass/Vol] 7533 pg/mL High <=900 [facility] Comment on above: Result Comment: Hear t Failure Unlikely: < 300 pg/mL Heart Failure Likely < 50 Years: > 450 pg/mL 50-75 Years: > 900 pg/mL >75 Years: > 1800 pg/mL Performed By: #### L 300.4310, L300.3900 #### [facility] [address] [place], [address] Laboratory - Chemistry and C hemistry - challengeOrdered By: Lee Mathews on 03-03-2025 AST [Catalytic activity/Vol] 31 U/L <38 [facility] Lymphocytes Auto (Unsp spec) [#/Vol]Ordered By: Lee Mathews on 03-03-2025 Lymphocytes (Bld) [#/Vol] 2.04 10*3/uL 0.83-4.51 [facility] Lymphocytes/100 WBC Auto (Un sp spec)Ordered By: Lee Mathews on 03-03-2025 Lymphocytes/100 WBC (Bld) 25.4 % 19-41 [facility] MCV (mean corpuscular volume ) determinationOrdered By: Lee Mathews on 03-03-2025 MCV (RBC) [Entitic vol] 93.3 fL 80-94 [facility] Mean corpuscular hemoglobin (MCH) determinationOrdered By: [facility] a Mathews on 03-03-2025 MCH (RBC) [Entitic mass] 31.6 pg 27.0-32.0 [facility] Mean corpuscular hemoglobin concentration (MCHC) determinationOrdered By: Lee Mathews on 03-03-2025 MCHC (RBC) [Mass/Vol] 33.9 g/dL 32-36 [facility] Mean platelet volume determi nationOrdered By: Lee Mathews on 03-03-2025 Platelet mean volume (Bld) [Entitic vol] 10.0 fL 6.2-12.0 [facility] Monocyte percentageOrdered B y: Lee Mathews on 03-03-2025 Monocytes/100 WBC (Bld) 8.0 % 0-10 [facility] Natriuretic peptide.B prohor geraldine N-Terminal [Mass/Vol]Ordered By: Lee Mathews on 03-03-2025 Natriuretic peptide B (Bld) [Mass/Vol] 7533 pg/mL High <900 [facility] Comment on above: Heart Failure Unlike ly: < 300 pg/mLHeart Failure Likely< 50 Years: > 450 pg/mL50-75 Years: > 900 pg/mL>75 Years: > 1800 pg/mL Natriuretic peptide.B prohor geraldine N-Terminal [Mass/volume] in Serum or PlasmaOrdered By: Lee Mathews on 03-03-2025 Natriuretic peptide.B prohormone N-Terminal [Mass/Vol] 7533 pg/mL High <900 [facility] Comment on above: Heart Failure Unlike ly: < 300 pg/mLHeart Failure Likely< 50 Years: > 450 pg/mL50-75 Years: > 900 pg/mL>75 Years: > 1800 pg/mL Neutrophil percentageOrdered By: Lee Mathews on 03-03-2025 Neutrophils/100 WBC (Bld) 65.5 % 47-70 [facility] Nucleated red blood cell per centageOrdered By: Lee Mathews on 03-03-2025 Nucleated RBC/100 WBC (Bld) [Ratio] 0 % 0-5 [facility] Platelet countOrdered By: Gilberto Mathews on 03-03-2025 Platelets (Bld) [#/Vol] 100 10*3/uL Low 150-450 [facility] Potassium (Unsp spec) [Mass/ Vol]Ordered By: Lee Mathews on 03-03-2025 Potassium [Moles/Vol] 4.0 mmol/L 3.3-5.1 [facility] Potassium measurement (mass/ volume)Ordered By: Lee Mathews on 03-03-2025 Potassium (Unsp spec) [Mass/Vol] 4.0 mmol/L 3.3-5.1 [facility] RBC Auto (Bld) [#/Vol]Ordere d By: Lee Mathews on 03-03-2025 RBC (Bld) [#/Vol] 4.78 10*6/uL 4.6-6.2 [facility] Serum creatinine measurement (mass/volume)Ordered By: Lee Mathews on 03-03-2025 Creatinine [Mass/Vol] 1.06 mg/dL 0.70-1.20 [facility] Serum globulin measurementOr dered By: Lee Mathews on 03-03-2025 Globulin (S) [Mass/Vol] 2.4 g/dL 2.2-4.2 [facility] Serum glucose measurement (m ass/volume)Ordered By: Lee Mathews on 03-03-2025 Glucose [Mass/Vol] 98 mg/dL 70-99 [facility] Serum or plasma alanine andre otransferase (ALT) measurementOrdered By: Lee Mathews on 03-03-2025 ALT [Catalytic activity/Vol] 25 U/L <47 [facility] Serum or plasma albumin jennifer urement (mass/volume)Ordered By: Lee Mathews on 03-03-2025 Albumin [Mass/Vol] 3.8 g/dL 3.4-4.8 [facility] Serum or plasma albumin/glob ulin mass ratioOrdered By: Lee Mathews on 03-03-2025 Albumin/Globulin [Mass ratio] 1.6 {ratio} 0.9-2.4 [facility] Serum or plasma alkaline elisabeth sphatase measurementOrdered By: Lee Mathews on 03-03-2025 ALP [Catalytic activity/Vol] 73 U/L 40-129 [facility] Serum or plasma calcium jennifer urement (mass/volume)Ordered By: Lee Mathews on 03-03-2025 Calcium [Mass/Vol] 8.8 mg/dL 7.6-11.0 [facility] Serum or plasma urea nitroge n measurement (mass/volume)Ordered By: Lee Mathews on 03-03-2025 Urea nitrogen [Mass/Vol] 17 mg/dL 4-19 [facility] Sodium levelOrdered By: Asia Mathews on 03-03-2025 Sodium [Moles/Vol] 134 mmol/L 133-145 [facility] TSH DL <= 0.005 mIU/L QnOrde red By: Lee Mathews on 03-03-2025 Thyroid Stimulating Hormone (TSH) 2.040 uIU/mL 0.300-4.200 [facility] TSH Qn 2.040 uIU/mL 0.300-4.200 [facility] Thyroid Stim Hormone (TSH)on 03-03-2025 TSH 2.040 uIU/mL Normal 0.300-4.200 [facility] Comment on above: Performed By: #### L 300.4310, L300.3900 #### [facility] [place], [address] Total proteinOrdered By: Carrie Mathews on 03-03-2025 Protein [Mass/Vol] 6.1 g/dL 5.9-8.4 [facility] White blood cell (WBC) count Ordered By: Lee Bisi on 03-03-2025 WBC (Bld) [#/Vol] 8.0 10*3/uL 4.4-11.0 [facility] Protein Electroph, Son 05-02 Albumin [Mass/Vol] 3.8 g/dL Normal 2.9-4.4 [facility] Comment on above: Performed By: #### L 3100.3450, L100.0100, L500.4050 ####[facility] [address] [place], [address] Albumin/Globulin [Mass ratio] 1.5 {ratio} Normal 0.7-1.7 [facility] Comment on above: Performed By: #### L 3100.3450, L100.0100, L500.4050 ####[facility] [address] [place], [address] ALPHA-1 GLOBUL 0.2 g/dL Normal 0.0-0.4 [facility] Comment on above: Performed By: #### L 3100.3450, L100.0100, L500.4050 ####[facility] [address] [place], [address] ALPHA-2 GLOBUL 0.6 g/dL Normal 0.4-1.0 [facility] Comment on above: Performed By: #### L 3100.3450, L100.0100, L500.4050 ####[facility] [address] [place], [address] BETA GLOBULIN 0.9 g/dL Normal 0.7-1.3 [facility] Comment on above: Performed By: #### L 3100.3450, L100.0100, L500.4050 ####[facility] [address] [place], [address] GAMMA GLOBULIN 0.8 g/dL Normal 0.4-1.8 [facility] Comment on above: Performed By: #### L 3100.3450, L100.0100, L500.4050 ####[facility] [address] [place], [address] Globulin (S) [Mass/Vol] 2.5 g/dL Normal 2.2-3.9 [facility] Comment on above: Performed By: #### L 3100.3450, L100.0100, L500.4050 ####[facility] [address] [place], [address] INTERPRETATION Comment Normal . [facility] Comment on above: Result Comment: Prot ein electrophoresis scan will follow via computer, mail, or special effects technician delivery. Performed By: #### L 3100.3450, L100.0100, L500.4050 ####[facility] [address] [place], [address] M-SPIKE Not Observed Normal Not Observed [facility] Comment on above: Performed By: #### L 3100.3450, L100.0100, L500.4050 ####[facility] [address] [place], [address] NOTE: Comment Normal . [facility] Comment on above: Result Comment: The SPE pattern appears unremarkable. Evidence of monoclonal protein is not apparent. Performed at: [address] [id number] Expert Medical Writer: Juan Schmitt PhD, Phone: [phone] Performed By: #### L 3100.3450, L100.0100, L500.4050 ####[facility] [address] [place], [address] Protein [Mass/Vol] 6.3 g/dL Normal 6.0-8.5 [facility] Comment on above: Performed By: #### L 3100.3450, L100.0100, L500.4050 ####[facility] [address] [place], [address] CBC W/Diff, Automatedon 06- 2-2023 Absolute Lymph 2.64 X10 3/uL Normal 0.83-4.51 [facility] Comment on above: Performed By: #### L 3100.3450, L100.0100, L500.4050 ####[facility] [address] [place], [address] Absolute Neut 3.4 X10 3/uL Normal 2.0-7.7 [facility] Comment on above: Performed By: #### L 3100.3450, L100.0100, L500.4050 ####[facility] [address] [place], [address] Basophils/100 WBC (Bld) 0.3 % Normal 0-1 [facility] Comment on above: Performed By: #### L 3100.3450, L100.0100, L500.4050 ####[facility] [address] [place], [address] Eosinophils/100 WBC (Bld) 1.5 % Normal 0-5 [facility] Comment on above: Performed By: #### L 3100.3450, L100.0100, L500.4050 ####[facility] [address] [place], [address] Erythrocyte distribution width (RBC) [Ratio] 13.0 % Normal 11.6-14.6 [facility] Comment on above: Performed By: #### L 3100.3450, L100.0100, L500.4050 ####[facility] [address] [place], [address] Hematocrit (Bld) [Volume fraction] 48.9 % Normal 40-54 [facility] Comment on above: Performed By: #### L 3100.3450, L100.0100, L500.4050 ####[facility] [address] [place], [address] Hemoglobin (Bld) [Mass/Vol] 16.1 g/dL Normal 13.0-16.5 [facility] Comment on above: Performed By: #### L 3100.3450, L100.0100, L500.4050 ####[facility] [address] [place], [address] IG% 0.300 Normal 0.0-0.9 [facility] Comment on above: Result Comment: IG% - Immature Granulocytes (promyelocytes, myelocytes and metamyelocytes) > 1% indicates that a LEFT SHIFT is Present. Performed By: #### L 3100.3450, L100.0100, L500.4050 ####[facility] [address] [place], [address] Lymphocytes/100 WBC (Bld) 39.0 % Normal 19-41 [facility] Comment on above: Performed By: #### L 3100.3450, L100.0100, L500.4050 ####[facility] [address] [place], [address] MCH (RBC) [Entitic mass] 31.1 pg Normal 27.0-32.0 [facility] Comment on above: Performed By: #### L 3100.3450, L100.0100, L500.4050 ####[facility] [address] [place], [address] MCHC (RBC) [Mass/Vol] 32.9 g/dL Normal 32-36 [facility] Comment on above: Performed By: #### L 3100.3450, L100.0100, L500.4050 ####[facility] [address] [place], [address] MCV (RBC) [Entitic vol] 94.4 fL High 80-94 [facility] Comment on above: Performed By: #### L 3100.3450, L100.0100, L500.4050 ####[facility] [address] [place], [address] Monocytes/100 WBC (Bld) 9.3 % Normal 0-10 [facility] Comment on above: Performed By: #### L 3100.3450, L100.0100, L500.4050 ####[facility] [address] [place], [address] Neutrophils/100 WBC (Bld) 49.6 % Normal 47-70 [facility] Comment on above: Performed By: #### L 3100.3450, L100.0100, L500.4050 ####[facility] [address] [place], [address] Nucleated RBC (Bld) [#/Vol] 0 10*3/uL Normal 0-5 [facility] Comment on above: Performed By: #### L 3100.3450, L100.0100, L500.4050 ####[facility] [address] [place], [address] Platelet mean volume (Bld) [Entitic vol] 9.1 fL Normal 6.2-12.0 [facility] Comment on above: Performed By: #### L 3100.3450, L100.0100, L500.4050 ####[facility] [address] [place], [address] Platelets (Bld) [#/Vol] 173 10*3/uL Normal 150-450 [facility] Comment on above: Performed By: #### L 3100.3450, L100.0100, L500.4050 ####[facility] [address] [place], [address] RBC (Bld) [#/Vol] 5.18 10*6/uL Normal 4.6-6.2 [facility] Comment on above: Performed By: #### L 3100.3450, L100.0100, L500.4050 ####[facility] [address] [place], [address] RDW SD 45.4 fl High 35.1-43.9 [facility] Comment on above: Performed By: #### L 3100.3450, L100.0100, L500.4050 ####[facility] [address] [place], [address] WBC (Bld) [#/Vol] 6.8 10*3/uL Normal 4.4-11.0 [facility] Comment on above: Performed By: #### L 3100.3450, L100.0100, L500.4050 ####[facility] [address] [place], [address] Chest PA and Lateralon 05-01 Chest PA and Lateral [facility] [address] [place] [address] Chest PA and Lateral MR#: [id number] Acct: [id number] Name: KELVIN HERNANDEZ JrSavita Rep #: [id number] : 1955 M 68 From: Lee rios MD PCP: Dr. Lee Mathews MD Status: REG CLI Study: Chest PA and Lateral Date of Exam: 05/01/24 Exam# [id number] Ordering Dr: Elio Sky MD [id number] INDICATION: Encounter for screening for diseases of the blood EXAMINATION/TECHNIQU E: X-RAY - XR Chest 2 Views COMPARISON: 12/11/2008 FINDINGS: The lungs are clear. Tortuous and calcified thoracic aorta. The heart is not enlarged. No pleural effusion or pneumothorax. Degenerative changes of the thoracic spine. RAD/Chest PA and Lateral IMPRESSION: No acute radiographic abnormalities. Electronically Signed: Lee Reis MD at 2:58 EDT , CC: Dr. Lee Mathews MD; Dr. Elio Sky MD [employer] Consultant: Signed Normal [facility] Comprehensive Metabolic Prof ilon 05-01-2024 Albumin [Mass/Vol] 3.7 g/dL Normal 3.2-5.0 [facility] Comment on above: Performed By: #### L 3100.3450, L100.0100, L500.4050 ####[facility] [address] [place], [address] Albumin/Globulin [Mass ratio] 1.1 {ratio} Normal 0.9-2.4 [facility] Comment on above: Performed By: #### L 3100.3450, L100.0100, L500.4050 ####[facility] [address] [place], [address] ALK P 90 U/L Normal 45-117 [facility] Comment on above: Performed By: #### L 3100.3450, L100.0100, L500.4050 ####[facility] [address] [place], [address] ALT [Catalytic activity/Vol] 19 U/L Normal 16-61 [facility] Comment on above: Performed By: #### L 3100.3450, L100.0100, L500.4050 ####[facility] [address] [place], [address] AST [Catalytic activity/Vol] 16 U/L Normal 15-37 [facility] Comment on above: Performed By: #### L 3100.3450, L100.0100, L500.4050 ####[facility] [address] [place], [address] Bilirubin [Mass/Vol] 0.50 mg/dL Normal 0.20-1.00 [facility] Comment on above: Result Comment: For patients on eltrombopag therapy, use of Dimension Mcgregor TBIL is not recommended. Performed By: #### L 3100.3450, L100.0100, L500.4050 ####[facility] [address] [place], [address] BUN/CRE 13.6 RATIO Normal 10-20 [facility] Comment on above: Performed By: #### L 3100.3450, L100.0100, L500.4050 ####[facility] [address] [place], [address] CA,Total 9.0 mg/dL Normal 8.5-10.1 [facility] Comment on above: Performed By: #### L 3100.3450, L100.0100, L500.4050 ####[facility] [address] [place], [address] Chloride [Moles/Vol] 98 mmol/L Normal 98-107 [facility] Comment on above: Performed By: #### L 3100.3450, L100.0100, L500.4050 ####[facility] [address] [place], [address] CO2 [Moles/Vol] 32.0 mmol/L Normal 21.0-32.0 [facility] Comment on above: Performed By: #### L 3100.3450, L100.0100, L500.4050 ####[facility] [address] [place], [address] Creatinine [Mass/Vol] 0.81 mg/dL Normal 0.70-1.30 [facility] Comment on above: Result Comment: The validity of the calculated GFR GFRAA in patients over 70 years has not been determined. Clinical correlation is essential. Performed By: #### L 3100.3450, L100.0100, L500.4050 ####[facility] [address] [place], [address] EST GFR - AA 121 mL/min Normal >60 [facility] Comment on above: Result Comment: Afri can [place] GFR Calc Performed By: #### L 3100.3450, L100.0100, L500.4050 ####[facility] [address] [place], [address] GAP 4 Low 5-15 [facility] Comment on above: Performed By: #### L 3100.3450, L100.0100, L500.4050 ####[facility] [address] [place], [address] GFR/1.73 sq M.predicted among non-blacks MDRD (S/P/Bld) [Vol rate/Area] 100 mL/min/{1.73_m2} Normal >60 [facility] Comment on above: Result Comment: Non- GFR Calc Performed By: #### L 3100.3450, L100.0100, L500.4050 ####[facility] [address] [place], [address] Globulin (S) [Mass/Vol] 3.3 g/dL Normal 2.2-4.2 [facility] Comment on above: Performed By: #### L 3100.3450, L100.0100, L500.4050 ####[facility] [address] [place], [address] Glucose [Mass/Vol] 94 mg/dL Normal 74-106 [facility] Comment on above: Performed By: #### L 3100.3450, L100.0100, L500.4050 ####[facility] [address] [place], [address] Potassium [Moles/Vol] 4.1 mmol/L Normal 3.5-5.1 [facility] Comment on above: Performed By: #### L 3100.3450, L100.0100, L500.4050 ####[facility] [address] [place], [address] Sodium [Moles/Vol] 134 mmol/L Low 136-145 [facility] Comment on above: Performed By: #### L 3100.3450, L100.0100, L500.4050 ####[facility] [address] [place], [address] T PROT 7.0 g/dL Normal 6.4-8.2 [facility] Comment on above: Performed By: #### L 3100.3450, L100.0100, L500.4050 ####[facility] [address] [place], [address] Urea nitrogen [Mass/Vol] 11 mg/dL Normal 7-18 [facility] Comment on above: Performed By: #### L 3100.3450, L100.0100, L500.4050 ####[facility] [address] [place], [address] Basophil percentageOrdered B y: Uzair Mathews on 02-05-2024 Chloride [Moles/Vol] 97 mmol/L 98-107 [facility] Cholesterol [Mass/Vol] 169 mg/dL <200 [facility] Comment on above: <200 mg/dL Desirable 200-240 mg/dL Borderline >240 mg/dL High Risk Glucose [Mass/Vol] 105 mg/dL 74-106 [facility] Comment on above: Fasting Glucose resu lt from 100 to 125 mg/dL suggests IMPAIRED HOMEOSTASIS per A.D.A. criteria. Potassium [Moles/Vol] 3.8 mmol/L 3.5-5.1 [facility] Sodium [Moles/Vol] 133 mmol/L 136-145 [facility] Triglyceride [Mass/Vol] 103 mg/dL <199 [facility] Comment on above: The drugs N-Acetylcy steine and Metamizole may falsely depress this assay.Serum Triglycerides Reference Interval Normal <150 mg/dL Borderline high 150 - 199 mg/dL High 200 - 499 mg/dL Very High > or = 500 mg/dL Laboratory - Chemistry and C hemistry - challengeOrdered By: Uzair Mathews on 02-05-2024 Cholesterol in HDL [Mass/Vol] 48 mg/dL >40 [facility] Comment on above: The drugs N-Acetylcy steine and Metamizole may falsely depress this assay. Reference Range HDL <40 mg/dL Low HDL Cholesterol HDL >or= 60 mg/dL High HDL Cholesterol Cholesterol in LDL [Mass/Vol] 100 mg/dL 0-130 [facility] CO2 [Moles/Vol] 32.0 mmol/L 21.0-32.0 [facility] Urea nitrogen/Creatinine [Mass ratio] 9.7 mg/mg 10-20 [facility] No Panel InformationOrdered By: Uzair Mathews on 02-05-2024 Estimated GFR (MDRD) Amer 119 mL/min >60 [facility] Comment on above: GFR Calc Estimated GFR (MDRD) Non-Af Amer 98 mL/min >60 [facility] Comment on above: Non- GFR Calc Prostate Specific Antigen Screen 0.72 ng/mL 0.00-4.00 [facility] Comment on above: This test was perfor med using the TPSA assay method for the[facility] chemistry system. Values obtained with differentassay methods cannot be used interchangably.When changing PSA assays in the course of monitoring apatient, additional sequential testing should be carriedout to confirm baseline values. VLDL Cholesterol 21 mg/dL 5-40 [facility] Serum or plasma calcium jennifer urement (mass/volume)Ordered By: Uzair Mathews on 02-05-2024 Calcium [Mass/Vol] 8.7 mg/dL 8.5-10.1 [facility] Serum or plasma creatinine m easurement (mass/volume)Ordered By: Uzair Mathews on 02-05-2024 Creatinine [Mass/Vol] 0.82 mg/dL 0.70-1.30 [facility] Comment on above: The validity of the calculated GFR & GFRAA in patients over 70 years has not been determined. Clinical correlation is essential. Serum or plasma urea nitroge n measurement (mass/volume)Ordered By: Uzair Mathews on 02-05-2024 Urea nitrogen [Mass/Vol] 8 mg/dL 06-06 [facility] Thin prep Papanicolaou smear with manual screeningOrdered By: Uzair Mathews on 02-05-2024 Thin prep Papanicolaou smear with manual screening 04-03 [facility] Vital Signs Date Time Vital Sign Value Performing Clinician Faci lity 04-03-2025 08:24-0400 Body mass index (BMI) [Ratio] 38.7 kg/m2 Dr. Lee Mathews MD Work Phone: [facility] 04-03-2025 08:24-0400 Body weight 115.[address] Lee Mathews MD Work Phone: [facility] 04-03-2025 08:24-0400 Diastolic blood pressure 83 mm[Hg] Dr. Lee Mathews MD Work Phone: [facility] 04-03-2025 08:24-0400 Heart rate 95 /min Dr. Lee Mathews MD Work Phone: [facility] 04-03-2025 08:24-0400 Respiratory rate 18 /min Dr. Lee Mathews MD Work Phone: [facility] 04-03-2025 08:24-0400 SaO2% (BldA) [Mass fraction] 98 % Dr. Lee Mathews MD Work Phone: [facility] 04-03-2025 08:24-0400 Systolic blood pressure 122 mm[Hg] Dr. Lee Mathews MD Work Phone: [facility] 03-27-2025 14:21-0400 Body temperature 97.5 [degF] Dr. Lee Mathews MD Work Phone: [facility] 03-27-2025 14:21-0400 Diastolic blood pressure 92 mm[Hg] Dr. Lee Mathews MD Work Phone: 0(124)234-220343 [place] [address] 03-27-2025 14:21-0400 Heart rate 101 /min Dr. Lee Mathews MD Work Phone: 1(475)026-444043 [place] [address] 03-27-2025 14:21-0400 Respiratory rate 18 /min Dr. Lee Mathews MD Work Phone: 5(544)475-597743 [place] [address] 03-27-2025 14:21-0400 SaO2% (BldA) [Mass fraction] 92 % Dr. Lee Mathews MD Work Phone: 1(558)062-818419 [place] [address] 03-27-2025 14:21-0400 Systolic blood pressure 110 mm[Hg] Dr. Lee Mathews MD Work Phone: 4(393)992-159919 [place] [address] 03-27-2025 12:49-0400 Body temperature 97.5 [degF] Dr. Lee Mathews MD Work Phone: 9(115)041-622719 [place] [address] 03-27-2025 12:49-0400 Diastolic blood pressure 92 mm[Hg] Dr. Lee Mathews MD Work Phone: 8(843)728-460019 [place] [address] 03-27-2025 12:49-0400 Heart rate 101 /min Dr. Lee Mathews MD Work Phone: 5(054)952-445019 [place] [address] 03-27-2025 12:49-0400 Respiratory rate 18 /min Dr. Lee Mathews MD Work Phone: 1(018)598-250319 [place] [address] 03-27-2025 12:49-0400 SaO2% (BldA) [Mass fraction] 92 % Dr. Lee Mathews MD Work Phone: 6(689)614-559219 [place] [address] 03-27-2025 12:49-0400 Systolic blood pressure 110 mm[Hg] Dr. Lee Mathews MD Work Phone: 9(191)318-867419 [place] [address] 03-26-2025 09:57-0400 Body mass index (BMI) [Ratio] 37.1 kg/m2 Dr. Lee Mathews MD Work Phone: [facility] 03-26-2025 09:57-0400 Body weight 110.[address] Lee Mathews MD Work Phone: [facility] 03-24-2025 13:15-0400 Body height 172.[address] Lee Mathews MD Work Phone: [facility] Encounters Encounter Date Encounter Type Care Provider Facility Start: 05-05-2025 ambulatory Carlton Keyes Facility:[facility] Start: 04-03-2025 End: 04-03-[address] Lee Mathews MD Work Phone: [facility] Work Phone: Start: 04-03-2025 End: 04-03-2025 Patient encounter procedure Ariane Perez [facility] Work Phone: Start: 04-03-2025 End: 04-03-2025 Patient encounter procedure Ariane Perez [facility] -[facility] Work Phone: Start: 04-03-2025 End: 04-03-[address] Lee Mathews MD Work Phone: [facility] Work Phone: Start: 04-03-2025 End: 04-03-2025 ambulatory Ariane Perez NP Facility:[facility] Start: 03-27-2025 Non-patient / Non-visit Dr. Derrick Chacon MD -[facility] Work Phone: Start: 03-27-2025 Non-patient / Non-visit Dr. Madhu Bautista MD -[facility] Start: 03-26-2025 Non-patient / Non-visit Dr. Derrick Chacon MD -[facility] Work Phone: Start: 03-26-2025 Non-patient / Non-visit Dr. Madhu Bautista MD -[facility] Start: 03-25-2025 Non-patient / Non-visit Dr. Derrick Chacon MD -[facility] Work Phone: Start: 03-25-2025 ambulatory Lee Quan lity:[facility] Start: 03-25-2025 Non-patient / Non-visit Dr. Madhu Bautista MD -[facility] Start: 03-24-2025 Non-patient / Non-visit Dr. Derrick Chacon MD -[facility] Work Phone: Start: 03-24-2025 Non-patient / Non-visit Dr. Carlton Keyes MD -[facility] Start: 03-24-2025 ambulatory Lee Quan lity:[facility] Start: 03-23-2025 Non-patient / Non-visit Dr. Krissy Freitas MD [facility] Start: 03-23-2025 Non-patient / Non-visit Dr. Stanley Craig MD -[facility] Work Phone: Start: 03-22-2025 Non-patient / Non-visit Dr. Krissy Freitas MD -[facility] Start: 03-22-2025 Non-patient / Non-visit Dr. Stanley Craig MD -[facility] Work Phone: Start: 03-21-2025 Non-patient / Non-visit Dr. Stanley Craig MD -[facility] Work Phone: Start: 03-21-2025 ambulatory Lee Quan lity:[facility] Start: 03-21-2025 Non-patient / Non-visit Dr. Krissy Freitas MD -[facility] Start: 03-20-2025 Non-patient / Non-visit Dr. Sophia Lowe MD -[facility] Work Phone: Start: 03-20-2025 ambulatory Sophia Lowe Facility :[facility] Start: 03-20-2025 End: 03-27-2025 Evaluation and management of inpatient Dr. Derrick Chacon MD -[facility] Work Phone: Start: 03-18-2025 End: 03-18-[address] [facility] Start: 03-18-2025 End: 03-18-2025 ambulatory Lee Mathews Facility:[facility] Start: 03-03-2025 End: 03-03-[address] Lee Mathews MD Work Phone: [facility] Work Phone: Start: 03-03-2025 End: 03-03-[address] Lee Mathews MD -Laboratory, [facility] Work Phone: Start: 03-03-2025 End: 03-03-2025 ambulatory Lee Mathews Facility:[facility] Start: 05-01-2024 End: 05-01-2024 ambulatory Elio Sky Facility:[facility] Start: 02-05-2024 End: 02-05-2024 ambulatory [facility] Work Phone: Start: 02-05-2024 End: 02-05-2024 Patient encounter procedure [facility], [facility] Procedures Date Procedure Procedure Detail Performing Clinician Start: 03-27-[address] Lee Mathews MD Work Phone: Start: 03-24-2025 Serum inorganic phos phate measurement Dr. Lee Mathews MD Work Phone: Start: 03-20-2025 X-ray of chest, PA a nd lateral views Dr. Lee Mathews MD Work Phone: Start: 03-03-2025 X-ray of chest, PA a nd lateral views Dr. Lee Mathews MD Work Phone: Plan of Treatment Date Care Activity Detail Author Start: 04-03-2025 Evaluation of diagnostic study results 12 Lead EKG performed by [facility] Start: 03-27-2025 Patient discharge [facility] Start: 03-24-2025 Patient referral [facility] Work Phone: Start: 03-24-2025 Notification of physician [facility] Start: 03-24-2025 Patient education [facility] Start: 03-24-2025 Provision of activity privileges [facility] Start: 03-24-2025 Pulse taking [facility] Start: 03-24-2025 Taking patient vital signs [facility] Start: 03-24-2025 Wound care [facility] Start: 03-24-2025 [facility] Start: 03-24-2025 Catheterization of vein [facility] Start: 03-24-2025 Medication not administered [facility] Start: 03-24-2025 [facility] Start: 03-23-2025 [facility] Start: 03-22-2025 [facility] Start: 03-21-2025 Care planning and problem solving actions [facility] Start: 03-21-2025 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 [facility] Start: 03-20-2025 Providing care according to standard [facility] Start: 03-20-2025 Provision of activity privileges [facility] Start: 03-20-2025 Tobacco use cessation education [facility] Start: 03-20-2025 Introduction of urinary catheter [facility] Start: 03-20-2025 Referral to service [facility] Start: 03-20-2025 Application of elastic bandage [facility] Start: 03-20-2025 Elevation of affected extremity [facility] Start: 03-20-2025 Notification of physician [facility] Start: 03-20-2025 Patient education [facility] Start: 03-20-2025 Admission procedure [facility] Start: 03-20-2025 Patient referral to dietitian [facility] Start: 03-20-2025 [facility] Basic metabolic 2008 panel with ionized calcium - Serum or Plasma [facility] Basic metabolic 2008 panel with ionized calcium - Serum or Plasma [facility] Cardioversion [facility] CBC W Auto Different ial panel - Blood [facility] Natriuretic peptide. B prohormone N-Terminal [Mass/volume] in Serum or Plasma [facility] Patient referral [facility] Work Phone: Polysomnography [facility] Heart limited [facility] Payers Date Payer Category Payer Medicare [id number] 2024 Self-pay [id number] Medicare [id number] Private Health Insurance [employer] L [id number] Unknown ANTHEM [id number] Unknown [id number] [id number] Unknown [id number] 2.840.1.071324.3.579.2.462 Unknown [id number] 2.840.1.201924.3.579.2.462 Unknown [id number] 2.840.1.942604.3.579.2.462 Unknown [id number] 2.840.1.662933.3.579.2.462 Unknown [id number] 2.840.1.114132.3.579.2.462 Unknown [id number] 2.840.1.361821.3.579.2.462 Unknown [id number] 2.840.1.858547.3.579.2.462 Unknown [id number] 2.840.1.498278.3.579.2.462 Unknown [id number] 2.16.840.1.839778.3.579.2.462 Unknown [id number] 2.16.840.1.816655.3.579.2.462 Unknown [id number] 2.16.840.1.594454.3.579.2.462 Unknown [id number] 2.16.840.1.032990.3.579.2.462 Unknown [id number] 2.16.840.1.293284.3.579.2.462 Unknown [id number] 2.16.840.1.413127.3.579.2.462 Unknown [id number] 2.16.840.1.208824.3.579.2.462 Unknown [id number] 2.16.840.1.103032.3.579.2.462 Unknown [id number] 2.16.840.1.641980.3.579.2.462 Unknown [id number] 2.16.840.1.058924.3.579.2.462 Unknown [id number] 2.16.840.1.324935.3.579.2.462 Unknown [id number] 2.16.840.1.467405.3.579.2.462 Unknown [id number] 2.16840.1.961760.3.579.2.462 Unknown [id number] 2.16840.1.358417.3.579.2.462 Social History Date Type Detail Facility Start: 11-13-2021 Tobacco smoking stat [facility] Unknown if ever smoked [facility] Start: 11-13-2021 None [facility] Start: 06-29-2018 Cigarettes [facility] Start: 1955 Sex Assigned At Male [facility] Start: 11-13-2021 End: 03-20-2025 Tobacco smoking status INIS Current some day smoker [facility] Start: 03-06-2025 Sex Male (finding) [facility] Medical Equipment Procedure Code Equipment Code Equipment Origin al Text Equipment Identifier Dates SOPHIE 3GRM HEMO STAT ABS FDA Start: 07-02-2018 SOPHIE 3GRM HEMO STAT ABS FDA Start: 07-02-2018 SOPHIE 3GRM HEMO STAT ABS FDA Start: 07-02-2018 SOPHIE 3GRM HEMO STAT ABS FDA Start: 07-02-2018 SOPHIE 3GRM HEMO STAT ABS FDA Start: 07-02-2018 Goals Date Patient Goal Desired Activity /State Functional Status Date Assessment Result Facility 03-27-2025 Functional status Ambulates;Up a d amira;Bathroom Privilege [facility] Work Phone: Mental Status Date Assessment Result Facility 03-27-2025 Cognitive function Voice/Name [facility] Work Phone: Clinical Notes 03-04-2025 to 03-27-2025 Note Date & Type Note Facility 03-27-2025 Discharge summary Note Date/Time March 27, 2025 12:45pm [facility] Medical Records Department [address] [place] [address] Discharge Summary 03/27/25 1113 MR#: [id number] Acct: [id number] Name: KELVIN HERNANDEZ JrSavita Rep #:[id number] : 1955 69 From: Derrick Henry PCP: Dr. Lee Mathews MD Status :ADM IN Location: [place] [address] Providers Date of Admission: 03/20/25 Date of Discharge: 03/27/25 Primary Care Physician: Dr. Lee Mathews MD Consultations 03/21/25 10:25 Consult: Cardiology Routine Consulting Provider: Krissy Freitas Reason for Consult: chf EMERGENT Consult: No MD Notified: Yes Date Notified: 03/21/25 Time Notified: 10:37 Method of Notification: Verbal Reason For Visit: HF EXAC, PAF RVR Diagnosis Discharge Diagnosis (1) Acute systolic CHF (congestive heart failure): Status: Acute Code(s): I50.21 - Acute systolic (congestive) heart failure (2) Atrial fibrillation with RVR: Status: Acute Code(s): I48.91 - Unspecified atrial fibrillation Plan Patient is a 69-year-old gentleman who was sent to the ED by the primary care physician on account of increasing shortness of breath with minimal activity as well as generalized swelling. An assessment of acute congestive heart failure was made admitted to monitored bed for further management 1. Acute congestive heart failure with reduced ejection from ? Admitted to monitored bed manage with strict input and output, daily weight,fluid restriction, low-sodium diet as well as diuretic therapy with furosemide drip. Echo ordered for EF assessment. Consult was placed to cardiology ? Patient has responded to diuretic therapy. Patient weight on admission was 121 currently down to 117 kg 2D echo obtained on 03/21/2025 did show The estimatedejection fraction is 10-15 %. Moderate concentric left ventricular hypertrophy. Moderate global right ventricular systolic dysfunction. Moderately dilated rightventricle. The left atrium is mildly enlarged. The right atrium is mildly enlarged. Mild (1+) mitral valve insufficiency. Mild (1+) eccentric tricuspid valve insufficiency. Consult was placed to cardiology patient seen by Dr. Freitas his notes and recommendations reviewed 03/24: Patient underwent cardiac cath and reported normal coronaries. Dilated cardiomyopathy. 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 Spironolactone added. SGLT2 started. Continue beta-shaniqua, metoprolol increased to 50 mg twice daily. After rate is controlled can switch to carvedilol. Lisinopril 2.5 mg twice daily started before send tolerated then switch to Entresto as an outpatient. Continue goal-directed guideline recommended therapy. 03/25: Patient medication is getting optimized. On furosemide 40 milligram IV twice daily, switch to oral tomorrow. 03/26: Continue furosemide, changed to oral 40 mg twice daily. Continue above medications 03/27: Creatinine started going up from 1.39, 1.35 and 1.49. Furosemide dosing changed from 40 mg twice daily to 40 mg daily. Patient on spironolactone 25 mg daily. Advised follow-up with Dr. Bautista in 1 week with BMP. On lisinopril 2.5mg twice daily. Metoprolol 100 mg twice daily. 2. Paroxysmal atrial fibrillation ? Patient presented with RVR. Patient was started on Cardizem drip admitted to monitored bed. Cardizem drip being titrated to keep heart rate less than 100 03/24: Patient has A-fib with RVR. Metoprolol dose increased to 75 mg twice daily. Digoxin dose to 50 mg added. On Eliquis resumed in the evening today. 03/26: Patient heart rate at rest was about 110 to 120/min and walking it goes to 140 pulm and therefore could not be discharged. Lanoxin was added for rate control was given IV and then repeated 6 PM. Labs ordered for tomorrow a.m. 03/27: Heart rate is controlled 94/min. Discharged on digoxin 125 mcg daily. Keep potassium around 4 and magnesium around 2.0. 3. Acute kidney injury ? Creatinine from 03/03/2025 was 1.06 creatinine on admission was 1.50. This is suspected to be secondary to hypoperfusion from CHF do expect improvement in kidney function with with diuresis. Repeat BMP ordered in a.m. for monitoring ? 03/22/2025; patient creatinine down to 1.18 ? 03/23/2025; creatinine stable at 1.17 03/24: Creatinine 1.26. 03/25: Labs ordered 03/26: Creatinine 1.35. Potassium in normal range. Magnesium 2.2. 03/27: Creatinine slightly went up 1.49 from diuretic, cardiorenal disease and heart failure 4. Runs of nonsustained VT ? Attributed to patient severe cardiomyopathy. Plan is to continue with telemetry monitoring 5. Hypokalemia ? Corrected for protocol. Also recheck magnesium as well as phosphorus levels 6. Essential hypertension Patient is on metoprolol did continue lisinopril was held given patient worsening kidney function 7. COPD ? Currently not in exacerbation aerosol treatment as needed 8. Abnormal LFTs ? Suspected to be secondary to hepatic congestion from CHF repeated LFTs in a.m.for further management ? 03/22/2025; patient LFTs still remain elevated. 03/24: Liver chemistry still elevated 60, 80 probably due to liver congestion fromCHF. 9. Elevated troponin Suspected to be secondary to demand ischemia from congestive heart failure. Patient troponins have remained flat. Echo has been ordered for LVEF assessment 10. Class III obesity with BMI of 40.6 ? Complicating care weight loss advised 11. Tobacco dependence ? Counseled on cessation, offered nicotine patch for tobacco cravings 12. DVT prophylaxis ? Patient is on systemic anticoagulation Discharge medication reconciliation done. Discharge follow-up instructions completed. Discharge process discussed with the patient and all questions wereanswered to patient's satisfaction. Follow with PCP in 1 to 2 weeks Total time spent, exact 35 minutes on discharge meds reconciliation, examination, coordination of care with nurses and ancillary staff, review of imaging and blood test and discussion with the patient on follow-up instructions. Medications at Discharge Home Medications albuterol sulfate 90 mcg/actuation aerosol inhaler 2 puff inhalation 4X/DAY PRN PRN shortness of breath or wheezing 03/20/25 apixaban 5 mg tablet (Eliquis) 5 mg PO BID blood thinner 03/20/25 digoxin 125 mcg (0.125 mg) tablet 125 mcg PO DAILY 30 days #30 tabs 03/27/25 empagliflozin 10 mg tablet (Jardiance) 10 mg PO DAILY 30 days #30 tabs 03/27/25 furosemide 40 mg tablet 40 mg PO DAILY 30 days #30 tabs 03/27/25 lisinopril 2.5 mg tablet 2.5 mg PO BID 30 days #60 tabs 03/27/25 metoprolol tartrate 100 mg tablet 100 mg PO BID 30 days #60 tabs 03/27/25 sennosides 8.6 mg-docusate sodium 50 mg tablet (Stimulant Laxative Plus) 2 tab PO BID PRN PRN Constipation #0 tabs 03/27/25 spironolactone 25 mg tablet 25 mg PO DAILY 30 days #30 tabs 03/27/25 Physical Exam Narrative Seen and examined. Heart rate is controlled. Leg swelling is also better. Furosemide frequency decreased from 40 mL twice daily to once daily Patient has chronic dermatitis since young age. Heart rate was 120 in the morning but is better about 90s in the afternoon. Physical exam General: Alert, Oriented x3, Cooperative. BMI 38.9 kg/m? HEENT: Atraumatic, PERRLA, EOMI, Normocephalic. Oral: No Gingival or Mucosal Lesions/ Ulcerations Neck: Supple, No JVD, Negative Carotid Bruits Chest wall/Lungs: Air entry diminished in bilateral lung bases. No crepitation/rhonchi Cardiovascular: A-fib, Normal S1,S2, systolic murmur LLSB and cardiac apex Abdomen: Bowel Sounds Present, Soft, Non Tender, Non-Distended : No dysuria. No renal angle tenderness. No suprapubic tenderness. Extremities: 1+ bilateral pitting edema, Capillary Refill Less than 3 Seconds Skin: Chronic dermatitis with dry, rough, thick skin all over the body. Musculoskeletal: No Tenderness to Palpation of Joints or Extremities. ROM intact. Neurological: Cranial nerves II-XII grossly intact, DTR 2+/4. No acute focal neurological deficit. Psych/Mental Status: Normal Affect, Appropriate. Weight / BMI Weight Weight: 244 lb 4.355 oz Body Mass Index (BMI) 37.1 ABG / Lab / Microbiology Data 03/24/25 02:59 03/27/25 05:23 Laboratory: Laboratory Results - last 24 hr 03/27/25 05:23: Sodium 141, Potassium 3.9, Chloride 98, Carbon Dioxide 35.1 H, Anion Gap 8, BUN 33 H, Creatinine 1.49 H, Estim Creat Clear Calc 54.90, Est GFR (MDRD) Non-Af 50 L, BUN/Creatinine Ratio 22.0 H, Glucose 94, Calcium 8.2 D/C Instructions DC O2, CPAP, BIPAP Needs Home O2 Discharge instructions: No Meaningful Use Info Meaningful Use Meaningful Use Diagnoses (Choose all that apply): CHF CHF SYDNEE/ARB ordered at discharge?: Yes Documented LVEF (%): 10 Ischemic Stroke Statin Dosing Therapy Reference: STATIN DOSE THERAPY REFERENCE: * Patients > 75 years receive moderate or high dose statin therapy. * Patients 75 years or YOUNGER should receive HIGH intensity statin dose unless contraindicated. You will be required to document reason for non-treatment if statin daily dose does not meet guidelines. 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% Attending Provider: Derrick Chacon Primary Care Provider: Lee Mathews Consulting Providers: Sophia Lowe; Krissy Freitas; Stanley Craig Discharge Orders/Prescriptions Prescriptions: New furosemide 40 mg Tablet 40 mg PO DAILY 30 Days Qty: 30 2RF metoprolol tartrate 100 mg Tablet 100 mg PO BID 30 Days Qty: 60 1RF sennosides-docusate sodium [Stimulant Laxative Plus] 8.6-50 mg Tablet 2 tab PO BID PRN PRN (Reason: Constipation) Qty: 0 0RF Rx Instructions: OTC digoxin 125 mcg (0.125 mg) Tablet 125 mcg PO DAILY 30 Days Qty: 30 0RF lisinopril 2.5 mg Tablet 2.5 mg PO BID 30 Days Qty: 60 0RF Jardiance 10 mg Tablet 10 mg PO DAILY 30 Days Qty: 30 0RF spironolactone 25 mg Tablet 25 mg PO DAILY 30 Days Qty: 30 0RF Rx Instructions: Hold for serum potassium more than 5.0 Continued Eliquis 5 mg tablet 5 mg PO BID albuterol sulfate 90 mcg/actuation HFA aerosol inhaler 2 puff INHALATION 4X/DAY PRN PRN (Reason: shortness of breath or wheezing) Discontinued lisinopril 20 mg tablet 20 mg PO QDAY furosemide 20 mg tablet 20 mg PO BID PRN metoprolol tartrate 50 mg tablet 50 mg PO BID Referrals / Follow Up: Lee Mathews MD [Primary Care Provider] - Madhu Bautista MD [Med Staff - Active Staff] - In 1 Week (Follow Dr. Madhu Bautista in 1 week to 10 days.) Disposition Disposition (needs filled in before D/C Order can be placed): Home, Self Care Charges/Coding Visit Charges Inpatient E&M: 16119 Disch Hosp >30min 03/27/25 1245 <Electronically signed by Derrick Chacon MD> Cosigner Signature (if applicable): CC: Dr. Lee Mathews MD; Dr. Derrick Chacon MD~ Signed [facility] Work Phone: [phone] 790-963605-08-2025 Discharge summary [facility] Medical Records Department [address] [place] [id number] Discharge Summary 03/27/25 1113 MR#: [id number] Acct: [id number] Name: KELVIN HERNANDEZ JrSavita Rep #:[id number] : 1955 69 From: Derrick Henry PCP: Dr. Lee Mathews MD Status :ADM IN Location: [facility] RUN822- 1 Providers Date of Admission: 03/20/25 Date of Discharge: 03/27/25 Primary Care Physician: Dr. Lee Mathews MD Consultations 03/21/25 10:25 Consult: Cardiology Routine Consulting Provider: Krissy Freitas Reason for Consult: chf EMERGENT Consult: No MD Notified: Yes Date Notified: 03/21/25 Time Notified: 10:37 Method of Notification: Verbal Reason For Visit: HF EXAC, PAF RVR Diagnosis Discharge Diagnosis (1) Acute systolic CHF (congestive heart failure): Status: Acute Code(s): I50.21 - Acute systolic (congestive) heart failure (2) Atrial fibrillation with RVR: Status: Acute Code(s): I48.91 - Unspecified atrial fibrillation Plan Patient is a 69-year-old gentleman who was sent to the ED by the primary care physician on account of increasing shortness of breath with minimal activity as well as generalized swelling. An assessment of acute congestive heart failure was made admitted to monitored bed for further management 1. Acute congestive heart failure with reduced ejection from ? Admitted to monitored bed manage with strict input and output, daily weight,fluid restriction, low-sodium diet as well as diuretic therapy with furosemide drip. Echo ordered for EF assessment. Consult was placed to cardiology ? Patient has responded to diuretic therapy. Patient weight on admission was 121 currently down to 117 kg 2D echo obtained on 03/21/2025 did show The estimatedejection fraction is 10-15 %. Moderate concentric left ventricular hypertrophy. Moderate global right ventricular systolic dysfunction. Moderately dilated rightventricle. The left atrium is mildly enlarged. The right atrium is mildly enlarged. Mild (1+) mitral valve insufficiency. Mild (1+) eccentric tricuspid valve insufficiency. Consult was placed to cardiology patient seen by Dr. Freitas his notes and recommendations reviewed 03/24: Patient underwent cardiac cath and reported normal coronaries. Dilated cardiomyopathy. Seen bycardiologist recommend continue IV furosemide. Spironolactone added. SGLT2 started. Continue beta-shaniqua, metoprolol increased to 50 mg twice daily. After rate is controlled can switch to carvedilol. Lisinopril 2.5 mg twice daily started before send tolerated then switch to Entresto as an outpatient. Continue goal-directed guideline recommended therapy. 03/25: Patient medication is getting optimized. On furosemide 40 milligram IV twice daily, switch to oral tomorrow. 03/26: Continue furosemide, changed to oral 40 mg twice daily. Continue above medications 03/27: Creatinine started going up from 1.39, 1.35 and 1.49. Furosemide dosing changed from 40 mg twice daily to 40 mg daily. Patient on spironolactone 25 mg daily. Advised follow-up with Dr. Bautista in1 week with BMP. On lisinopril 2.5mg twice daily. Metoprolol 100 mg twice daily. 2. Paroxysmal atrial fibrillation ? Patient presented with RVR. Patient was started on Cardizem drip admitted to monitored bed. Cardizem drip being titrated to keep heart rate less than 100 03/24: Patient has A-fib with RVR. Metoprolol dose increased to 75 mg twice daily. Digoxin dose to 50mg added. On Eliquis resumed in the evening today. 03/26: Patient heart rate at rest was about 110 to 120/min and walking it goes to 140 pulm and therefore could not be discharged. Lanoxin was added for rate control was given IV and then repeated 6 PM.Labs ordered for tomorrow a.m. 03/27: Heart rate is controlled 94/min. Discharged on digoxin 125 mcg daily. Keep potassium around 4 and magnesium around 2.0. 3. Acute kidney injury ? Creatinine from 03/03/2025 was 1.06 creatinine on admission was 1.50. This is suspected to be secondary to hypoperfusion from CHF do expect improvement in kidney function with with diuresis. Repeat BMP ordered in a.m. for monitoring ? 03/22/2025; patient creatinine down to 1.18 ? 03/23/2025; creatinine stable at 1.17 03/24: Creatinine 1.26. 03/25: Labs ordered 03/26: Creatinine 1.35. Potassium in normal range. Magnesium 2.2. 03/27: Creatinine slightly went up 1.49 from diuretic, cardiorenal disease and heart failure 4. Runs of nonsustained VT ? Attributed to patient severe cardiomyopathy. Plan is to continue with telemetry monitoring 5. Hypokalemia ? Corrected for protocol. Also recheck magnesium as well as phosphorus levels 6. Essential hypertension Patient is on metoprolol did continue lisinopril was held given patient worsening kidney function 7. COPD ? Currently not in exacerbation aerosol treatment as needed 8. Abnormal LFTs ? Suspected to be secondary to hepatic congestion from CHF repeated LFTs in a.m.for further management ? 03/22/2025; patient LFTs still remain elevated. 03/24: Liver chemistry still elevated 60, 80 probably due to liver congestion fromCHF. 9. Elevated troponin Suspected to be secondary to demand ischemia from congestive heart failure. Patient troponins have remained flat. Echo has been ordered for LVEF assessment 10. Class III obesity with BMI of 40.6 ? Complicating care weight loss advised 11. Tobacco dependence ? Counseled on cessation, offered nicotine patch for tobacco cravings 12. DVT prophylaxis ? Patient is on systemic anticoagulation Discharge medication reconciliation done. Discharge follow-up instructions completed. Discharge process discussed with the patient and all questions wereanswered to patient's satisfaction. Follow with PCP in 1 to 2 weeks Total time spent, exact 35 minutes on discharge meds reconciliation, examination, coordination of care with nurses and ancillary staff, review of imaging and blood test and discussion with the patient on follow-up instructions. Medications at Discharge Home Medications albuterol sulfate 90 mcg/actuation aerosol inhaler 2 puff inhalation 4X/DAY PRN PRN shortness of breath or wheezing 03/20/25 apixaban 5 mg tablet (Eliquis) 5 mg PO BID blood thinner 03/20/25 digoxin 125 mcg (0.125 mg) tablet 125 mcg PO DAILY 30 days #30 tabs 03/27/25 empagliflozin 10 mg tablet (Jardiance) 10 mg PO DAILY 30 days #30 tabs 03/27/25 furosemide 40 mg tablet 40 mg PO DAILY 30 days #30 tabs 03/27/25 lisinopril 2.5 mg tablet 2.5 mg PO BID 30 days #60 tabs 03/27/25 metoprolol tartrate 100 mg tablet 100 mg PO BID 30 days #60 tabs 03/27/25 sennosides 8.6 mg-docusate sodium 50 mg tablet (Stimulant Laxative Plus) 2 tab PO BID PRN PRN Constipation #0 tabs 03/27/25 spironolactone 25 mg tablet 25 mg PO DAILY 30 days #30 tabs 03/27/25 Physical Exam Narrative Seen and examined. Heart rate is controlled. Leg swelling is also better. Furosemide frequency decreased from 40 mL twice daily to once daily Patient has chronic dermatitis since young age. Heart rate was 120 in the morning but is better about 90s in the afternoon. Physical exam General: Alert, Oriented x3, Cooperative. BMI 38.9 kg/m? HEENT: Atraumatic, PERRLA, EOMI, Normocephalic. Oral: No Gingival or Mucosal Lesions/ Ulcerations Neck: Supple, No JVD, Negative Carotid Bruits Chest wall/Lungs: Air entry diminished in bilateral lung bases. No crepitation/rhonchi Cardiovascular: A-fib, Normal S1,S2, systolic murmur LLSB and cardiac apex Abdomen: Bowel Sounds Present, Soft, Non Tender, Non-Distended : No dysuria. No renal angle tenderness. No suprapubic tenderness. Extremities: 1+ bilateral pitting edema, Capillary Refill Less than 3 Seconds Skin: Chronic dermatitis with dry, rough, thick skin all over the body. Musculoskeletal: No Tenderness to Palpation of Joints or Extremities. ROM intact. Neurological: Cranial nerves II-XII grossly intact, DTR 2+/4. No acute focal neurological deficit. Psych/Mental Status: Normal Affect, Appropriate. Weight / BMI Weight Weight: 244 lb 4.355 oz Body Mass Index (BMI) 37.1 ABG / Lab / Microbiology Data 03/24/25 02:59 03/27/25 05:23 Laboratory: Laboratory Results - last 24 hr 03/27/25 05:23: Sodium 141, Potassium 3.9, Chloride 98, Carbon Dioxide 35.1 H, Anion Gap 8, BUN 33 H, Creatinine 1.49 H, Estim Creat Clear Calc 54.90, Est GFR (MDRD) Non-Af 50 L, BUN/Creatinine Ratio22.0 H, Glucose 94, Calcium 8.2 D/C Instructions DC O2, CPAP, BIPAP Needs Home O2 Discharge instructions: No Meaningful Use Info Meaningful Use Meaningful Use Diagnoses (Choose all that apply): CHF CHF SYDNEE/ARB ordered at discharge?: Yes Documented LVEF (%): 10 Ischemic Stroke Statin Dosing Therapy Reference: STATIN DOSE THERAPY REFERENCE: * Patients > 75 years receive moderate or high dose statin therapy. * Patients 75 years or YOUNGER should receive HIGH intensity statin dose unless contraindicated. You will be required to document reason for non-treatment if statin daily dose does not meet guidelines. 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% Attending Provider: Derrick Chacon Primary Care Provider: Lee Mathews Consulting Providers: Sophia Lowe; Krissy Freitas; Stanley Craig Discharge Orders/Prescriptions Prescriptions: New furosemide 40 mg Tablet 40 mg PO DAILY 30 Days Qty: 30 2RF metoprolol tartrate 100 mg Tablet 100 mg PO BID 30 Days Qty: 60 1RF sennosides-docusate sodium [Stimulant Laxative Plus] 8.6-50 mg Tablet 2 tab PO BID PRN PRN (Reason: Constipation) Qty: 0 0RF Rx Instructions: OTC digoxin 125 mcg (0.125 mg) Tablet 125 mcg PO DAILY 30 Days Qty: 30 0RF lisinopril 2.5 mg Tablet 2.5 mg PO BID 30 Days Qty: 60 0RF Jardiance 10 mg Tablet 10 mg PO DAILY 30 Days Qty: 30 0RF spironolactone 25 mg Tablet 25 mg PO DAILY 30 Days Qty: 30 0RF Rx Instructions: Hold for serum potassium more than 5.0 Continued Eliquis 5 mg tablet 5 mg PO BID albuterol sulfate 90 mcg/actuation HFA aerosol inhaler 2 puff INHALATION 4X/DAY PRN PRN (Reason: shortness of breath or wheezing) Discontinued lisinopril 20 mg tablet 20 mg PO QDAY furosemide 20 mg tablet 20 mg PO BID PRN metoprolol tartrate 50 mg tablet 50 mg PO BID Referrals / Follow Up: Lee Mathews MD [Primary Care Provider] - Madhu Bautista MD [Med Staff - Active Staff] - In 1 Week (Follow Dr. Madhu Bautista in 1 week to 10 days.) Disposition Disposition (needs filled in before D/C Order can be placed): Home, Self Care Charges/Coding Visit Charges Inpatient E&M: 24787 Disch Hosp >30min 03/27/25 1245 Cosigner Signature (if applicable): CC: Dr. Lee Mathews MD; Dr. Derrick Chacon MD~ Signed [facility]05-08-2025 Discharge summary [facility] Medical Records Department [address] [place] [address] Instructions for Home/Discharge Instructions 03/27/25 1012 MR#: [id number] Acct: [id number] Name: KELVIN HERNANDEZ Jr. Rep #:[id number] : 1955 69 From: Derrick Henry PCP: Dr. Lee Mathews MD Status :ADM IN Discharge Instructions Diet Discharge Diet: Low fat / Low cholesterol, 8 Cup Fluid Restriction and 2000 mg Sodium Diet DC O2, CPAP, BIPAP needs Home O2 Discharge instructions: No Dressing / Incision Discharge Activity: Return to Normal Activity Weight Bearing Status: Weight bearing as tolerated Dressing / Incision Call your doctor if you observe: Fever of 101 or Higher, Coldness, Increased Pain, Numbness or Tingling, Change in Color, Inability to urinate, Inability to have a bowel movement, Shortness of breath, Dizziness, Fainting spells, Swellingin the ankles, Chest pain, Prolonged hiccupping, Increased palpitations (irregular heartbeat) and Calf discomfort Follow Up Care When: IN 2 WEEKS Test Results: Test results from this visit will be discussed in further detail at your follow- up appointment, if applicable. 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% Attending Provider: Derrick Chacon Primary Care Provider: Lee Mathews Consulting Providers: Sophia Lowe; Krissy Freitas; Stanley Craig Discharge Orders/Prescriptions Prescriptions: New furosemide 40 mg Tablet 40 mg PO DAILY 30 Days Qty: 30 2RF metoprolol tartrate 100 mg Tablet 100 mg PO BID 30 Days Qty: 60 1RF sennosides-docusate sodium [Stimulant Laxative Plus] 8.6-50 mg Tablet 2 tab PO BID PRN PRN (Reason: Constipation) Qty: 0 0RF Rx Instructions: OTC digoxin 125 mcg (0.125 mg) Tablet 125 mcg PO DAILY 30 Days Qty: 30 0RF lisinopril 2.5 mg Tablet 2.5 mg PO BID 30 Days Qty: 60 0RF Jardiance 10 mg Tablet 10 mg PO DAILY 30 Days Qty: 30 0RF spironolactone 25 mg Tablet 25 mg PO DAILY 30 Days Qty: 30 0RF Rx Instructions: Hold for serum potassium more than 5.0 Continued Eliquis 5 mg tablet 5 mg PO BID albuterol sulfate 90 mcg/actuation HFA aerosol inhaler 2 puff INHALATION 4X/DAY PRN PRN (Reason: shortness of breath or wheezing) Discontinued lisinopril 20 mg tablet 20 mg PO QDAY furosemide 20 mg tablet 20 mg PO BID PRN metoprolol tartrate 50 mg tablet 50 mg PO BID Referrals / Follow Up: Lee Mathews MD [Primary Care Provider] - Madhu Bautista MD [Med Staff - Active Staff] - In 1 Week (Follow Dr. Madhu Bautista in 1 week to 10 days.) Disposition Disposition (needs filled in before D/C Order can be placed): Home, Self Care 03/27/25 1241Pbess Chacon MD CC: Dr. Sophia Lowe MD; Dr. Lee Mathews MD; Dr. Stanley Craig MD; Dr. Krissy Freitas MD ~ Signed [facility]05-08-2025 Discharge summary Author Derrick Chacon [facility] Note Date/Time March 27, 2025 12:41p [facility] Medical Records Department [address] [place] [address] Instructions for Home/Discharge Instructions 03/27/25 1012 MR#: [id number] Acct: [id number] Name: KELVIN HERNANDEZ Jr. Rep #:[id number] : 1955 69 From: Derrick Henry PCP: Dr. Lee Mathews MD Status :ADM IN Discharge Instructions Diet Discharge Diet: Low fat / Low cholesterol, 8 Cup Fluid Restriction and 2000 mg Sodium Diet DC O2, CPAP, BIPAP needs Home O2 Discharge instructions: No Dressing / Incision Discharge Activity: Return to Normal Activity Weight Bearing Status: Weight bearing as tolerated Dressing / Incision Call your doctor if you observe: Fever of 101 or Higher, Coldness, Increased Pain, Numbness or Tingling, Change in Color, Inability to urinate, Inability to have a bowel movement, Shortness of breath, Dizziness, Fainting spells, Swellingin the ankles, Chest pain, Prolonged hiccupping, Increased palpitations (irregular heartbeat) and Calf discomfort Follow Up Care When: IN 2 WEEKS Test Results: Test results from this visit will be discussed in further detail at your follow- up appointment, if applicable. 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% Attending Provider: Derrick Chacon Primary Care Provider: Lee Mathews Consulting Providers: Sophia Lowe; Krissy Freitas; Stanley Craig Discharge Orders/Prescriptions Prescriptions: New furosemide 40 mg Tablet 40 mg PO DAILY 30 Days Qty: 30 2RF metoprolol tartrate 100 mg Tablet 100 mg PO BID 30 Days Qty: 60 1RF sennosides-docusate sodium [Stimulant Laxative Plus] 8.6-50 mg Tablet 2 tab PO BID PRN PRN (Reason: Constipation) Qty: 0 0RF Rx Instructions: OTC digoxin 125 mcg (0.125 mg) Tablet 125 mcg PO DAILY 30 Days Qty: 30 0RF lisinopril 2.5 mg Tablet 2.5 mg PO BID 30 Days Qty: 60 0RF Jardiance 10 mg Tablet 10 mg PO DAILY 30 Days Qty: 30 0RF spironolactone 25 mg Tablet 25 mg PO DAILY 30 Days Qty: 30 0RF Rx Instructions: Hold for serum potassium more than 5.0 Continued Eliquis 5 mg tablet 5 mg PO BID albuterol sulfate 90 mcg/actuation HFA aerosol inhaler 2 puff INHALATION 4X/DAY PRN PRN (Reason: shortness of breath or wheezing) Discontinued lisinopril 20 mg tablet 20 mg PO QDAY furosemide 20 mg tablet 20 mg PO BID PRN metoprolol tartrate 50 mg tablet 50 mg PO BID Referrals / Follow Up: Lee Mathews MD [Primary Care Provider] - Madhu Bautista MD [Med Staff - Active Staff] - In 1 Week (Follow Dr. Madhu Bautista in 1 week to 10 days.) Disposition Disposition (needs filled in before D/C Order can be placed): Home, Self Care 03/27/25 1241<Electronically signed by Derrick Chacon MD>Derrick Chacon MD CC: Dr. Sophia Lowe MD; Dr. Lee Mathews MD; Dr. Stanley Craig MD; Dr. Krissy Freitas MD ~ Signed [facility] Work Phone: 1([phone] 483-190505-08-2025 Progress note Author Madhu Bautista [facility] Note Date/Time March 27, 2025 9:34am [facility] Medical Records Department [facility] [place] [address] Progress Note - Cardiology 03/27/25 0859 MR#: [id number] Acct: [id number] Name: KELVIN HERNANDEZ Jr. Rep #:[id number] : 1955 69 From: Madhu Bautista MD PCP: Dr. Lee Mathews MD Status :ADM IN Location: [place] [address] Subjective Subjective Patient resting comfortably seated in the chair. He sleeps in his chair at home. Patient reports that his activity levels are back to normal for him telemetry shows that his heart rate is better controlled with the addition of Lanoxin atrial fibs at 85-95 bpm on telemetry. BUN and creatinine are minimally elevated today at 33 and 1.49. Objective Data Vital Signs: Vital Signs Temp Pulse Resp BP Pulse Ox O2 Del Method 97.5 F L 77 16 115/92 H 94 Room Air 03/27/25 06:31 03/27/25 06:31 03/27/25 06:31 03/27/25 06:31 03/27/25 06:31 03/27/25 06:31 Oxygen Delivery Method Room Air Weight: 244 lb 4.355 oz Body Mass Index (BMI) 37.1 Intake & Output: Intake and Output for Last 24 Hours 03/25/25 03/26/25 03/27/25 23:59 23:59 23:59 Intake Total 1241.25 / 1241.25 1480 / 1480 240 / 240 Output Total 0 / 0 700 / 700 Balance 1241.25 / 1241.25 780 / 780 240 / 240 Lab / Micro Data Attestation: I reviewed the patient's lab results. 03/24/25 02:59 03/27/25 05:23 Labs: Laboratory Results - last 24 hr 03/26/25 05:41: [place] [address] H 03/27/25 05:23: Sodium 141, Potassium 3.9, Chloride 98, Carbon Dioxide 35.1 H, Anion Gap 8, BUN 33 H, Creatinine 1.49 H, Estim Creat Clear Calc 54.90, Est GFR (MDRD) Non-Af 50 L, BUN/Creatinine Ratio 22.0 H, Glucose 94, Calcium 8.2 Rhythm Strip Rhythm Strip: A-fib Rate: 90 Cardiology Labs/Tests 03/27/25 05:23: Sodium 141, Potassium 3.9, Chloride 98, Carbon Dioxide 35.1 H, Anion Gap 8, BUN 33 H, Creatinine 1.49 H, Est GFR (MDRD) Non-Af 50 L, BUN/Creatinine Ratio 22.0 H, Glucose 94, Calcium 8.2 Rhythm: EKG: ECHO: Stress Test: Cardiac Cath: PCI: CT Surgery: Holter monitor: EPS: PPM: CXR: Chest CT Scan: Physical Exam Const alert and oriented x3 HEENT normocephalic Eyes EOMs intact bilaterally Neck no JVD Chest inspection of chest normal Resp normal respiratory effort Auscultation: rhonchi throughout Cardio Cardio Narrative: Distant heart tones Rate: regular rate Rhythm: abnormal rhythm regularly irregular Heart Sounds: S1 normal and S2 normal; Negative for click, gallop or murmur Extremity General Extremity: edema right lower extremity moderate and left lower extremitymild Skin Skin Narrative: Hyperkeratotic hyperpigmented lower extremity skin. Psych mental status grossly normal Assessment & Plan Assessment/Plan (1) Acute systolic CHF (congestive heart failure): PLAN: The patient has a history of heart failure with reduced ejection fraction. He appears to be coming compensated. His BNP which we did as a baseline was 16,000 842 he does have persistent right greater than left lower extremity edema. He reports that he feels much better and is back to baseline with his breathing and his edema is markedly improved since admission. Patient's heart rate has come under better control under his current medical therapy. BUN and creatinine are still minimally elevated at 33 and 1.49 respectively he is tolerating guideline directed medical therapy. (2) Atrial fibrillation with RVR: PLAN: Patient's heart rate is better controlled with the addition of Lanoxin to his beta-shaniqua therapy. His telemetry shows atrial fibrillation with heart rates of 85-95 bpm. The patient will be discharged on Lanoxin 0.125 mg daily. Along with his metoprolol 100 mg twice daily. The patient will follow-up in the [facility] office with a basic metabolic panel and dig level in 1 week. PLAN: Plan 1. Patient will continue his guideline directed medical therapy Jardiance 10 mgdaily, furosemide 40 mg daily, lisinopril 2.5 mg twice daily metoprolol 100 mg twice daily and spironolactone 25 mg daily. He is also on Lanoxin for rate control. 2. Obtain basic metabolic panel and dig level in 1 week. 3. Patient to be evaluated in the [facility] office in 1 week by her advanced practitioner. Charges/Coding Visit Charges Inpatient E&M: 70952 Subs Hosp L3 03/27/25 0934 <Electronically signed by Madhu Bautista MD> Joseluisigner Signature (if applicable): CC: ~ Signed [facility] Work Phone: 1(523) 772-472205-08-2025 [facility] Medical Records Department [address] [place] [address] Discharge Summary 03/27/25 1113 MR#: [id number] Acct: [id number] Name: KELVIN HERNANDEZ Jr. Rep #: [id number] : 1955 69 From: Derrick Chacon MD PCP: Dr. Lee Mathews MD Status:ADM IN Location: [facility] [id number] Providers Date of Admission: 03/20/25 Date of Discharge: 03/27/25 Primary Care Physician: Dr. Lee Mathews MD Consultations 03/21/25 10:25 Consult: Cardiology Routine Consulting Provider: Krissy Freitas Reason for Consult: chf EMERGENT Consult: No MD Notified: Yes Date Notified: 03/21/25 Time Notified: 10:37 Method of Notification: Verbal Reason For Visit: HF EXAC, PAF RVR Diagnosis Discharge Diagnosis (1) Acute systolic CHF (congestive heart failure): Status: Acute Code(s): I50.21 - Acute systolic (congestive) heart failure (2) Atrial fibrillation with RVR: Status: Acute Code(s): I48.91 - Unspecified atrial fibrillation Plan Patient is a 69-year-old gentleman who was sent to the ED by the primary care physician on account of increasing shortness of breath with minimal activity as well as generalized swelling. An assessment of acute congestive heart failure was made admitted to monitored bed for further management 1. Acute congestive heart failure with reduced ejection from ??? Admitted to monitored bed manage with strict input and output, daily weight, fluid restriction, low-sodium diet as well as diuretic therapy with furosemide drip. Echo ordered for EF assessment. Consult was placed to cardiology ??? Patient has responded to diuretic therapy. Patient weight on admission was 121 currently down to 117 kg 2D echo obtained on 03/21/2025 did show The estimated ejection fraction is 10-15 %. Moderate concentric left ventricular hypertrophy. Moderate global right ventricular systolic dysfunction. Moderately dilated right ventricle. The left atrium is mildly enlarged. The right atrium is mildly enlarged. Mild (1+) mitral valve insufficiency. Mild (1+) eccentric tricuspid valve insufficiency. Consult was placed to cardiology patient seen by Dr. Freitas his notes and recommendations reviewed 03/24: Patient underwent cardiac cath and reported normal coronaries. Dilated cardiomyopathy. 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 Spironolactone added. SGLT2 started. Continue beta-shaniqua, metoprolol increased to 50 mg twice daily. After rate is controlled can switch to carvedilol. Lisinopril 2.5 mg twice daily started before send tolerated then switch to Entresto as an outpatient. Continue goal-directed guideline recommended therapy. 03/25: Patient medication is getting optimized. On furosemide 40 milligram IV twice daily, switch to oral tomorrow. 03/26: Continue furosemide, changed to oral 40 mg twice daily. Continue above medications 03/27: Creatinine started going up from 1.39, 1.35 and 1.49. Furosemide dosing changed from 40 mg twice daily to 40 mg daily. Patient on spironolactone 25 mg daily. Advised follow-up with Dr. Bautista in 1 week with BMP. On lisinopril 2.5 mg twice daily. Metoprolol 100 mg twice daily. 2. Paroxysmal atrial fibrillation ??? Patient presented with RVR. Patient was started on Cardizem drip admitted to monitored bed. Cardizem drip being titrated to keep heart rate less than 100 03/24: Patient has A-fib with RVR. Metoprolol dose increased to 75 mg twice daily. Digoxin dose to 50 mg added. On Eliquis resumed in the evening today. 03/26: Patient heart rate at rest was about 110 to 120/min and walking it goes to 140 pulm and therefore could not be discharged. Lanoxin was added for rate control was given IV and then repeated 6 PM. Labs ordered for tomorrow a.m. 03/27: Heart rate is controlled 94/min. Discharged on digoxin 125 mcg daily. Keep potassium around 4 and magnesium around 2.0. 3. Acute kidney injury ??? Creatinine from 03/03/2025 was 1.06 creatinine on admission was 1.50. This is suspected to be secondary to hypoperfusion from CHF do expect improvement in kidney function with with diuresis. Repeat BMP ordered in a.m. for monitoring ??? 03/22/2025; patient creatinine down to 1.18 ??? 03/23/2025; creatinine stable at 1.17 03/24: Creatinine 1.26. 03/25: Labs ordered 03/26: Creatinine 1.35. Potassium in normal range. Magnesium 2.2. 03/27: Creatinine slightly went up 1.49 from diuretic, cardiorenal disease and heart failure 4. Runs of nonsustained VT ??? Attributed to patient severe cardiomyopathy. Plan is to continue with telemetry monitoring 5. Hypokalemia ??? Corrected for protocol. Also recheck magnesium as well as phosphorus levels 6. Essential hypertension Patient is on metoprolol did continue lisinopril was held given patient worsening kidney function 7. COPD ??? Currently not in exacerbation aerosol treatment as needed 8. Abnormal LFTs ??? Suspected to be sec (more content not included)...[facility] 03-27-2025 Progress note [facility] Medical Records Department [address] [place] [address] Progress Note - Cardiology 03/27/25 0859 MR#: [id number] Acct: [id number] Name: KELVIN HERNANDEZ JrSavita Rep #:[id number] : 1955 69 From: Madhu Bautista MD PCP: Dr. Lee Mathews MD Status :ADM IN Location: [place] [address] Subjective Subjective Patient resting comfortably seated in the chair. He sleeps in his chair at home. Patient reports that his activity levels are back to normal for him telemetry shows that his heart rate is better controlled with the addition of Lanoxin atrial fibs at 85-95 bpm on telemetry. BUN and creatinine are minimally elevated today at 33 and 1.49. Objective Data Vital Signs: Vital Signs Temp Pulse Resp BP Pulse Ox O2 Del Method 97.5 F L 77 16 115/92 H 94 Room Air 03/27/25 06:31 03/27/25 06:31 03/27/25 06:31 03/27/25 06:31 03/27/25 06:31 03/27/25 06:31 Oxygen Delivery Method Room Air Weight: 244 lb 4.355 oz Body Mass Index (BMI) 37.1 Intake & Output: Intake and Output for Last 24 Hours 03/25/25 03/26/25 03/27/25 23:59 23:59 23:59 Intake Total 1241.25 / 1241.25 1480 / 1480 240 / 240 Output Total 0 / 0 700 / 700 Balance 1241.25 / 1241.25 780 / 780 240 / 240 Lab / Micro Data Attestation: I reviewed the patient's lab results. 03/24/25 02:59 03/27/25 05:23 Labs: Laboratory Results - last 24 hr 03/26/25 05:41: [place] [address] H 03/27/25 05:23: Sodium 141, Potassium 3.9, Chloride 98, Carbon Dioxide 35.1 H, Anion Gap 8, BUN 33 H, Creatinine 1.49 H, Estim Creat Clear Calc 54.90, Est GFR (MDRD) Non-Af 50 L, BUN/Creatinine Ratio22.0 H, Glucose 94, Calcium 8.2 Rhythm Strip Rhythm Strip: A-fib Rate: 90 Cardiology Labs/Tests 03/27/25 05:23: Sodium 141, Potassium 3.9, Chloride 98, Carbon Dioxide 35.1 H, Anion Gap 8, BUN 33 H, Creatinine 1.49 H, Est GFR (MDRD) Non-Af 50 L, BUN/Creatinine Ratio 22.0 H, Glucose 94, Calcium 8.2 Rhythm: EKG: ECHO: Stress Test: Cardiac Cath: PCI: CT Surgery: Holter monitor: EPS: PPM: CXR: Chest CT Scan: Physical Exam Const alert and oriented x3 HEENT normocephalic Eyes EOMs intact bilaterally Neck no JVD Chest inspection of chest normal Resp normal respiratory effort Auscultation: rhonchi throughout Cardio Cardio Narrative: Distant heart tones Rate: regular rate Rhythm: abnormal rhythm regularly irregular Heart Sounds: S1 normal and S2 normal; Negative for click, gallop or murmur Extremity General Extremity: edema right lower extremity moderate and left lower extremitymild Skin Skin Narrative: Hyperkeratotic hyperpigmented lower extremity skin. Psych mental status grossly normal Assessment & Plan Assessment/Plan (1) Acute systolic CHF (congestive heart failure): PLAN: The patient has a history of heart failure with reduced ejection fraction. He appears to be coming compensated. His BNP which we did as a baseline was 16,000 842 he does have persistent right greater than left lower extremity edema. He reports that he feels much better and is back to baselinewith his breathing and his edema is markedly improved since admission. Patient's heart rate has come under better control under his current medical therapy. BUN and creatinine are still minimally elevated at 33 and 1.49 respectively he is tolerating guideline directed medical therapy. (2) Atrial fibrillation with RVR: PLAN: Patient's heart rate is better controlled with the addition of Lanoxin to his beta-shaniqua therapy. His telemetry shows atrial fibrillation with heart rates of 85-95 bpm. The patient will be discharged on Lanoxin 0.125 mg daily. Along with his metoprolol 100 mg twice daily. The patient will follow-up in the [facility] office with a basic metabolic panel and dig level in 1 week. PLAN: Plan 1. Patient will continue his guideline directed medical therapy Jardiance 10 mgdaily, furosemide 40mg daily, lisinopril 2.5 mg twice daily metoprolol 100 mg twice daily and spironolactone 25 mg daily. He is also on Lanoxin for rate control. 2. Obtain basic metabolic panel and dig level in 1 week. 3. Patient to be evaluated in the [facility] office in 1 week by her advanced practitioner. Charges/Coding Visit Charges Inpatient E&M: 72475 Subs Hosp L3 03/27/25 0934 Cosigner Signature (if applicable): CC: ~ Signed [facility]05-07-2025 Progress note Author Derrick Chacon [facility] Note Date/Time March 26, 2025 5:19pm [facility] Medical Records Department [address] [place] [address] Progress Note - Hospitalist 03/26/25 1716 MR#: [id number] Acct: [id number] Name: KELVIN HERNANDEZ JrSavita Rep #:[id number] : 1955 69 From: Derrick Henry PCP: Dr. Lee Mathews MD Status :ADM IN [facility] Reason for Visit Reason for Visit: Diagnoses Nicotine dependence, unspecified, uncomplicated (03/20/25) Unspecified atrial fibrillation (03/20/25) Acute systolic (congestive) heart failure (03/20/25) Dyspnea, unspecified (03/20/25) Abnormal findings on diagnostic imaging of heart and coronary circulation (03/20/25) Personal history of other diseases of the respiratory system (03/20/25) Objective Data Objective Data Vital Signs: Vital Signs Temp Pulse Resp BP Pulse Ox O2 Del Method 97.9 F 100 14 141/86 H 94 Room Air 03/26/25 15:29 03/26/25 15:29 03/26/25 15:29 03/26/25 15:29 03/26/25 15:29 03/26/25 15:36 Oxygen Delivery Method Room Air Weight: 244 lb 4.355 oz Body Mass Index (BMI) 37.1 Intake & Output: Intake and Output for Last 24 Hours 03/24/25 03/25/25 03/26/25 23:59 23:59 23:59 Intake Total 968.75 / 968.75 1241.25 / 1241.25 960 / 960 Output Total 850 / 850 0 / 0 400 / 400 Balance 118.75 / 118.75 1241.25 / 1241.25 560 / 560 Lab / Micro Data 03/24/25 02:59 03/26/25 05:41 Labs: Laboratory Results - last 24 hr 03/25/25 17:41: Sodium 140, Potassium 4.1, Chloride 97 L, Carbon Dioxide 32.8 H,Anion Gap 10, BUN 32 H, Creatinine 1.39 H, Estim Creat Clear Calc 60.26, Est GFR(MDRD) Non-Af 54 L, BUN/Creatinine Ratio 22.7 H, Glucose 113 H, Calcium 8.3 03/26/25 05:41: Sodium 139, Potassium 3.7, Chloride 97 L, Carbon Dioxide 31.4, Anion Gap 10, BUN 32 H, Creatinine 1.35 H, Estim Creat Clear Calc 60.85, Est GFR(MDRD) Non-Af 56 L, BUN/Creatinine Ratio 23.4 H, Glucose 104 H, Calcium 8.1, Magnesium 2.2, [place] [address] H Rhythm Strip Rhythm Strip: A-fib Rate: 110 Physical Exam Narrative Seen and examined. At present, patient denies chest pain or shortness of breath. Had cardiac cath in the morning and reported normal coronary arteries. Patient has chronic dermatitis since young age. Heart rate was 120 in the morning but is better about 90s in the afternoon. Physical exam General: Alert, Oriented x3, Cooperative. BMI 38.9 kg/m? HEENT: Atraumatic, PERRLA, EOMI, Normocephalic. Oral: No Gingival or Mucosal Lesions/ Ulcerations Neck: Supple, No JVD, Negative Carotid Bruits Chest wall/Lungs: Air entry diminished in bilateral lung bases. No crepitation/rhonchi Cardiovascular: A-fib, Normal S1,S2, systolic murmur LLSB and cardiac apex Abdomen: Bowel Sounds Present, Soft, Non Tender, Non-Distended : No dysuria. No renal angle tenderness. No suprapubic tenderness. Extremities: 1+ bilateral pitting edema, Capillary Refill Less than 3 Seconds Skin: Chronic dermatitis with dry, rough, thick skin all over the body. Musculoskeletal: No Tenderness to Palpation of Joints or Extremities. ROM intact. Neurological: Cranial nerves II-XII grossly intact, DTR 2+/4. No acute focal neurological deficit. Psych/Mental Status: Normal Affect, Appropriate. Assessment & Plan Assessment/Plan (1) Acute systolic CHF (congestive heart failure): (2) Atrial fibrillation with RVR: PLAN: Plan Patient is a 69-year-old gentleman who was sent to the ED by the primary care physician on account of increasing shortness of breath with minimal activity as well as generalized swelling. An assessment of acute congestive heart failure was made admitted to monitored bed for further management 1. Acute congestive heart failure with reduced ejection from ? Admitted to monitored bed manage with strict input and output, daily weight,fluid restriction, low-sodium diet as well as diuretic therapy with furosemide drip. Echo ordered for EF assessment. Consult was placed to cardiology ? Patient has responded to diuretic therapy. Patient weight on admission was 121 currently down to 117 kg 2D echo obtained on 03/21/2025 did show The estimatedejection fraction is 10-15 %. Moderate concentric left ventricular hypertrophy. Moderate global right ventricular systolic dysfunction. Moderately dilated rightventricle. The left atrium is mildly enlarged. The right atrium is mildly enlarged. Mild (1+) mitral valve insufficiency. Mild (1+) eccentric tricuspid valve insufficiency. Consult was placed to cardiology patient seen by Dr. Freitas his notes and recommendations reviewed 03/24: Patient underwent cardiac cath and reported normal coronaries. Dilated cardiomyopathy. 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 Spironolactone added. SGLT2 started. Continue beta-shaniqua, metoprolol increased to 50 mg twice daily. After rate is controlled can switch to carvedilol. Lisinopril 2.5 mg twice daily started before send tolerated then switch to Entresto as an outpatient. Continue goal-directed guideline recommended therapy. 03/25: Patient medication is getting optimized. On furosemide 40 milligram IV twice daily, switch to oral tomorrow. 03/26: Continue furosemide, changed to oral 40 mg twice daily. Continue above medications 2. Paroxysmal atrial fibrillation ? Patient presented with RVR. Patient was started on Cardizem drip admitted to monitored bed. Cardizem drip being titrated to keep heart rate less than 100 03/24: Patient has A-fib with RVR. Metoprolol dose increased to 75 mg twice daily. Digoxin dose to 50 mg added. On Eliquis resumed in the evening today. 03/26: Patient heart rate at rest was about 110 to 120/min and walking it goes to 140 pulm and therefore could not be discharged. Lanoxin was added for rate control was given IV and then repeated 6 PM. Labs ordered for tomorrow a.m. 3. Acute kidney injury ? Creatinine from 03/03/2025 was 1.06 creatinine on admission was 1.50. This is suspected to be secondary to hypoperfusion from CHF do expect improvement in kidney function with with diuresis. Repeat BMP ordered in a.m. for monitoring ? 03/22/2025; patient creatinine down to 1.18 ? 03/23/2025; creatinine stable at 1.17 03/24: Creatinine 1.26. 03/25: Labs ordered 03/26: Creatinine 1.35. Potassium in normal range. Magnesium 2.2. 4. Runs of nonsustained VT ? Attributed to patient severe cardiomyopathy. Plan is to continue with telemetry monitoring 5. Hypokalemia ? Corrected for protocol. Also recheck magnesium as well as phosphorus levels 6. Essential hypertension Patient is on metoprolol did continue lisinopril was held given patient worsening kidney function 7. COPD ? Currently not in exacerbation aerosol treatment as needed 8. Abnormal LFTs ? Suspected to be secondary to hepatic congestion from CHF repeated LFTs in a.m.for further management ? 03/22/2025; patient LFTs still remain elevated. 9. Elevated troponin Suspected to be secondary to demand ischemia from congestive heart failure. Patient troponins have remained flat. Echo has been ordered for LVEF assessment 10. Class III obesity with BMI of 40.6 ? Complicating care weight loss advised 11. Tobacco dependence ? Counseled on cessation, offered nicotine patch for tobacco cravings 12. DVT prophylaxis ? Patient is on systemic anticoagulation Charges/Coding Visit Charges Inpatient E&M: 28348 Subs Hosp L2 03/26/25 1719 <Electronically signed by Derrick Chacon MD> Cosigner Signature (if applicable): CC: ~ Signed [facility] Work Phone: [phone] 143-957105-07-2025 Progress note [facility] Medical Records Department [address] [place] [address] Progress Note - Hospitalist 03/26/25 171 MR#: [id number] Acct: [id number] Name: KELVIN HERNANDEZ Jr. Rep #:[id number] : 1955 69 From: Derrick Henry PCP: Dr. Lee Mathews MD Status :ADM IN Location: [place] [id number] Reason for Visit Reason for Visit: Diagnoses Nicotine dependence, unspecified, uncomplicated (03/20/25) Unspecified atrial fibrillation (03/20/25) Acute systolic (congestive) heart failure (03/20/25) Dyspnea, unspecified (03/20/25) Abnormal findings on diagnostic imaging of heart and coronary circulation (03/20/25) Personal history of other diseases of the respiratory system (03/20/25) Objective Data Objective Data Vital Signs: Vital Signs Temp Pulse Resp BP Pulse Ox O2 Del Method 97.9 F 100 14 141/86 H 94 Room Air 03/26/25 15:29 03/26/25 15:29 03/26/25 15:29 03/26/25 15:29 03/26/25 15:29 03/26/25 15:36 Oxygen Delivery Method Room Air Weight: 244 lb 4.355 oz Body Mass Index (BMI) 37.1 Intake & Output: Intake and Output for Last 24 Hours 03/24/25 03/25/25 03/26/25 23:59 23:59 23:59 Intake Total 968.75 / 968.75 1241.25 / 1241.25 960 / 960 Output Total 850 / 850 0 / 0 400 / 400 Balance 118.75 / 118.75 1241.25 / 1241.25 560 / 560 Lab / Micro Data 03/24/25 02:59 03/26/25 05:41 Labs: Laboratory Results - last 24 hr 03/25/25 17:41: Sodium 140, Potassium 4.1, Chloride 97 L, Carbon Dioxide 32.8 H,Anion Gap 10, BUN 32 H, Creatinine 1.39 H, Estim Creat Clear Calc 60.26, Est GFR(MDRD) Non-Af 54 L, BUN/Creatinine Ratio 22.7 H, Glucose 113 H, Calcium 8.3 03/26/25 05:41: Sodium 139, Potassium 3.7, Chloride 97 L, Carbon Dioxide 31.4, Anion Gap 10, BUN 32H, Creatinine 1.35 H, Estim Creat Clear Calc 60.85, Est GFR(MDRD) Non-Af 56 L, BUN/Creatinine Ratio23.4 H, Glucose 104 H, Calcium 8.1, Magnesium 2.2, [place] [address] H Rhythm Strip Rhythm Strip: A-fib Rate: 110 Physical Exam Narrative Seen and examined. At present, patient denies chest pain or shortness of breath. Had cardiac cath in the morning and reported normal coronary arteries. Patient has chronic dermatitis since young age. Heart rate was 120in the morning but is better about 90s in the afternoon. Physical exam General: Alert, Oriented x3, Cooperative. BMI 38.9 kg/m? HEENT: Atraumatic, PERRLA, EOMI, Normocephalic. Oral: No Gingival or Mucosal Lesions/ Ulcerations Neck: Supple, No JVD, Negative Carotid Bruits Chest wall/Lungs: Air entry diminished in bilateral lung bases. No crepitation/rhonchi Cardiovascular: A-fib, Normal S1,S2, systolic murmur LLSB and cardiac apex Abdomen: Bowel Sounds Present, Soft, Non Tender, Non-Distended : No dysuria. No renal angle tenderness. No suprapubic tenderness. Extremities: 1+ bilateral pitting edema, Capillary Refill Less than 3 Seconds Skin: Chronic dermatitis with dry, rough, thick skin all over the body. Musculoskeletal: No Tenderness to Palpation of Joints or Extremities. ROM intact. Neurological: Cranial nerves II-XII grossly intact, DTR 2+/4. No acute focal neurological deficit. Psych/Mental Status: Normal Affect, Appropriate. Assessment & Plan Assessment/Plan (1) Acute systolic CHF (congestive heart failure): (2) Atrial fibrillation with RVR: PLAN: Plan Patient is a 69-year-old gentleman who was sent to the ED by the primary care physician on account of increasing shortness of breath with minimal activity as well as generalized swelling. An assessment of acute congestive heart failure was made admitted to monitored bed for further management 1. Acute congestive heart failure with reduced ejection from ? Admitted to monitored bed manage with strict input and output, daily weight,fluid restriction, low-sodium diet as well as diuretic therapy with furosemide drip. Echo ordered for EF assessment. Consult was placed to cardiology ? Patient has responded to diuretic therapy. Patient weight on admission was 121 currently down to 117 kg 2D echo obtained on 03/21/2025 did show The estimatedejection fraction is 10-15 %. Moderate concentric left ventricular hypertrophy. Moderate global right ventricular systolic dysfunction. Moderately dilated rightventricle. The left atrium is mildly enlarged. The right atrium is mildly enlarged. Mild (1+) mitral valve insufficiency. Mild (1+) eccentric tricuspid valve insufficiency. Consult was placed to cardiology patient seen by Dr. Freitas his notes and recommendations reviewed 03/24: Patient underwent cardiac cath and reported normal coronaries. Dilated cardiomyopathy. Seen bycardiologist recommend continue IV furosemide. Spironolactone added. SGLT2 started. Continue beta-shaniqua, metoprolol increased to 50 mg twice daily. After rate is controlled can switch to carvedilol. Lisinopril 2.5 mg twice daily started before send tolerated then switch to Entresto as an outpatient. Continue goal-directed guideline recommended therapy. 03/25: Patient medication is getting optimized. On furosemide 40 milligram IV twice daily, switch to oral tomorrow. 03/26: Continue furosemide, changed to oral 40 mg twice daily. Continue above medications 2. Paroxysmal atrial fibrillation ? Patient presented with RVR. Patient was started on Cardizem drip admitted to monitored bed. Cardizem drip being titrated to keep heart rate less than 100 03/24: Patient has A-fib with RVR. Metoprolol dose increased to 75 mg twice daily. Digoxin dose to 50mg added. On Eliquis resumed in the evening today. 03/26: Patient heart rate at rest was about 110 to 120/min and walking it goes to 140 pulm and therefore could not be discharged. Lanoxin was added for rate control was given IV and then repeated 6 PM.Labs ordered for tomorrow a.m. 3. Acute kidney injury ? Creatinine from 03/03/2025 was 1.06 creatinine on admission was 1.50. This is suspected to be secondary to hypoperfusion from CHF do expect improvement in kidney function with with diuresis. Repeat BMP ordered in a.m. for monitoring ? 03/22/2025; patient creatinine down to 1.18 ? 03/23/2025; creatinine stable at 1.17 03/24: Creatinine 1.26. 03/25: Labs ordered 03/26: Creatinine 1.35. Potassium in normal range. Magnesium 2.2. 4. Runs of nonsustained VT ? Attributed to patient severe cardiomyopathy. Plan is to continue with telemetry monitoring 5. Hypokalemia ? Corrected for protocol. Also recheck magnesium as well as phosphorus levels 6. Essential hypertension Patient is on metoprolol did continue lisinopril was held given patient worsening kidney function 7. COPD ? Currently not in exacerbation aerosol treatment as needed 8. Abnormal LFTs ? Suspected to be secondary to hepatic congestion from CHF repeated LFTs in a.m.for further management ? 03/22/2025; patient LFTs still remain elevated. 9. Elevated troponin Suspected to be secondary to demand ischemia from congestive heart failure. Patient troponins have remained flat. Echo has been ordered for LVEF assessment 10. Class III obesity with BMI of 40.6 ? Complicating care weight loss advised 11. Tobacco dependence ? Counseled on cessation, offered nicotine patch for tobacco cravings 12. DVT prophylaxis ? Patient is on systemic anticoagulation Charges/Coding Visit Charges Inpatient E&M: 32446 [facility] Hosp L2 03/26/25 1124 Cosigner Signature (if applicable): CC: ~ Signed [facility]05-07-2025 Progress note Author Madhu Bautista [facility] Note Date/Time March 26, 2025 9:35am [facility] Medical Records Department [address] [place] [address] Progress Note - Cardiology 03/26/25 0925 MR#: [id number] Acct: [id number] Name: KELVIN HERNANDEZ Jr. Rep #:[id number] : 1955 69 From: Madhu Bautista MD PCP: Dr. Lee Mathews MD Status :ADM IN [facility] Subjective Subjective Patient sleeping in the bedside chair in a recliner. Denies any PND orthopnea. He reports that his lower extremity has markedly improved since his admission. He does report that he was ambulating some in the halls yesterday. Patient's blood pressures in the 95/60 range his heart rate 80-100 by palpation however onthe telemetry is atrial fibrillation shows rates in the 100?120 range consistently. BUN and creatinine have stabilized. Objective Data Vital Signs: Vital Signs Temp Pulse Resp BP Pulse Ox O2 Del Method 97.8 F 111 H 15 120/85 H 93 Room Air 03/26/25 08:46 03/26/25 08:46 03/26/25 08:46 03/26/25 08:46 03/26/25 08:46 03/26/25 08:46 Oxygen Delivery Method Room Air Weight: 246 lb 4.101 oz Body Mass Index (BMI) 37.4 Intake & Output: Intake and Output for Last 24 Hours 03/24/25 03/25/25 03/26/25 23:59 23:59 23:59 Intake Total 968.75 / 968.75 1241.25 / 1241.25 460 / 460 Output Total 850 / 850 0 / 0 100 / 100 Balance 118.75 / 118.75 1241.25 / 1241.25 360 / 360 Lab / Micro Data Attestation: I reviewed the patient's lab results. 03/24/25 02:59 03/26/25 05:41 Labs: Laboratory Results - last 24 hr 03/25/25 17:41: Sodium 140, Potassium 4.1, Chloride 97 L, Carbon Dioxide 32.8 H,Anion Gap 10, BUN 32 H, Creatinine 1.39 H, Estim Creat Clear Calc 60.26, Est GFR(MDRD) Non-Af 54 L, BUN/Creatinine Ratio 22.7 H, Glucose 113 H, Calcium 8.3 03/26/25 05:41: Sodium 139, Potassium 3.7, Chloride 97 L, Carbon Dioxide 31.4, Anion Gap 10, BUN 32 H, Creatinine 1.35 H, Estim Creat Clear Calc 60.85, Est GFR(MDRD) Non-Af 56 L, BUN/Creatinine Ratio 23.4 H, Glucose 104 H, Calcium 8.1, Magnesium 2.2 Rhythm Strip Rhythm Strip: A-fib Rate: 110 Cardiology Labs/Tests 03/25/25 17:41: Sodium 140, Potassium 4.1, Chloride 97 L, Carbon Dioxide 32.8 H,Anion Gap 10, BUN 32 H, Creatinine 1.39 H, Est GFR (MDRD) Non-Af 54 L, BUN/Creatinine Ratio 22.7 H, Glucose 113 H, Calcium 8.3 03/26/25 05:41: Sodium 139, Potassium 3.7, Chloride 97 L, Carbon Dioxide 31.4, Anion Gap 10, BUN 32 H, Creatinine 1.35 H, Est GFR (MDRD) Non-Af 56 L, BUN/Creatinine Ratio 23.4 H, Glucose 104 H, Calcium 8.1, Magnesium 2.2 Rhythm: EKG: ECHO: Stress Test: Cardiac Cath: PCI: CT Surgery: Holter monitor: EPS: PPM: CXR: Chest CT Scan: Physical Exam Const alert and oriented x3 HEENT normocephalic Eyes EOMs intact bilaterally Neck no JVD Chest inspection of chest normal Resp normal respiratory effort Auscultation: rhonchi throughout Cardio Rate: tachycardic Rhythm: abnormal rhythm irregularly irregular Heart Sounds: S1 normal and S2 normal; Negative for click, gallop or murmur GI soft to palpation Extremity General Extremity: edema bilateral lower extremity Details: mild Skin Skin Narrative: Hyperkeratosis and hyperpigmentation noted on bilateral lower extremities. Neuro Neuro Narrative: Alert and oriented x 3 Psych mental status grossly normal Assessment & Plan Assessment/Plan (1) Atrial fibrillation with RVR: PLAN: Patient remains in atrial fibrillation. I am uncertain of the duration ofhis atrial fibrillation it is probably within the last 2 months as best we can ascertain. He has been on Eliquis for 3 weeks. The patient's heart rate remains less than optimally controlled at 100-120 bpm on telemetry. His blood pressure is 95/60 which limits some of the rate modulating drugs we can utilize. He is currently tolerating metoprolol 100 mg twice daily. I recommend we add Lanoxin 0.5 mg this morning and 0.25 later today orally. He will then be placed on 0.25 daily and we will reevaluate him in 1 week in the office with a Lanoxin level and EKG. Following 3?4 more weeks of Eliquis would consider bringing the patient back forattempted direct-current cardioversion. Both atria are only mildly enlarged on echocardiogram done this admission. Another alternative would be addition of amiodarone to the patient's medical therapy in the ambulatory setting. This is an attempt to to obtain chemical cardioversion or if that fails a better chance at maintenance of sinus rhythm should a direct-current cardioversion be successful. Decision on amiodarone be made when he is evaluated in 1 week in the office. (2) Acute systolic CHF (congestive heart failure): PLAN: Patient's heart failure reduced ejection fraction EF is 10%. He does havemild biatrial enlargement he is on Jardiance 10 mg daily. He is now on Lanoxin 250 mcg daily. Furosemide 40 mg twice daily lisinopril 2.5 mg twice daily metoprolol tartrate 100 mg twice daily and spironolactone 25 mg daily. This represents maximum guideline directed medical therapy and his blood pressure is tolerating it however his heart rate remains elevated. We are trying to addressthat by adding Lanoxin to his medical therapy. The basic metabolic panel will be checked in 1 week. Today will obtain an N- terminal proBNP for baseline this will be repeated in the future. The patient will be reevaluated in our office at the [facility] 1 week after discharge with an ECG and a discussion concerning addition of amiodarone and discontinuation of Lanoxin at that time and then plan direct-current cardioversion 3 to 4 weeks later. PLAN: Plan 1. Continue current medical therapy. 2. Will add Lanoxin for rate control. 3. If blood pressure heart rate and renal functions are remained stable should be able to discharge to home in the next 24 hours. 4. After discharge follow-up in the [facility] office in 1 week for ECG and further treatment options as noted in #2 above. Charges/Coding Visit Charges Inpatient E&M: 65566 Subs Hosp L3 03/26/2555 <Electronically signed by Madhu Bautista MD> Cosigner Signature (if applicable): CC: ~ Signed [facility] Work Phone: [phone] Progress note [facility] Medical Records Department [facility] [place] [address] [place] [address] Progress Note - Cardiology 03/26/25924 MR#: [id number] Acct: [id number] Name: KELVIN HERNANDEZ Jr. Rep #:[id number] : 1955 69 From: Madhu Bautista MD PCP: Dr. Lee Mathews MD Status :ADM IN Location: [place] [address] Subjective Subjective Patient sleeping in the bedside chair in a recliner. Denies any PND orthopnea. He reports that his lower extremity has markedly improved since his admission. He does report that he was ambulating some in the halls yesterday. Patient's blood pressures in the 95/60 range his heart rate 80-100 by palpation however onthe telemetry is atrial fibrillation shows rates in the 100?120 range consistently. BUN and creatinine have stabilized. Objective Data Vital Signs: Vital Signs Temp Pulse Resp BP Pulse Ox O2 Del Method 97.8 F 111 H 15 120/85 H 93 Room Air 03/26/25 08:46 03/26/25 08:46 03/26/25 08:46 03/26/25 08:46 03/26/25 08:46 03/26/25 08:46 Oxygen Delivery Method Room Air Weight: 246 lb 4.101 oz Body Mass Index (BMI) 37.4 Intake & Output: Intake and Output for Last 24 Hours 03/24/25 03/25/25 03/26/25 23:59 23:59 23:59 Intake Total 968.75 / 968.75 1241.25 / 1241.25 460 / 460 Output Total 850 / 850 0 / 0 100 / 100 Balance 118.75 / 118.75 1241.25 / 1241.25 360 / 360 Lab / Micro Data Attestation: I reviewed the patient's lab results. 03/24/25 02:59 03/26/25 05:41 Labs: Laboratory Results - last 24 hr 03/25/25 17:41: Sodium 140, Potassium 4.1, Chloride 97 L, Carbon Dioxide 32.8 H,Anion Gap 10, BUN 32 H, Creatinine 1.39 H, Estim Creat Clear Calc 60.26, Est GFR(MDRD) Non-Af 54 L, BUN/Creatinine Ratio 22.7 H, Glucose 113 H, Calcium 8.3 03/26/25 05:41: Sodium 139, Potassium 3.7, Chloride 97 L, Carbon Dioxide 31.4, Anion Gap 10, BUN 32H, Creatinine 1.35 H, Estim Creat Clear Calc 60.85, Est GFR(MDRD) Non-Af 56 L, BUN/Creatinine Ratio23.4 H, Glucose 104 H, Calcium 8.1, Magnesium 2.2 Rhythm Strip Rhythm Strip: A-fib Rate: 110 Cardiology Labs/Tests 03/25/25 17:41: Sodium 140, Potassium 4.1, Chloride 97 L, Carbon Dioxide 32.8 H,Anion Gap 10, BUN 32 H, Creatinine 1.39 H, Est GFR (MDRD) Non-Af 54 L, BUN/Creatinine Ratio 22.7 H, Glucose 113 H, Calcium 8.3 03/26/25 05:41: Sodium 139, Potassium 3.7, Chloride 97 L, Carbon Dioxide 31.4, Anion Gap 10, BUN 32H, Creatinine 1.35 H, Est GFR (MDRD) Non-Af 56 L, BUN/Creatinine Ratio 23.4 H, Glucose 104 H, Calcium 8.1, Magnesium 2.2 Rhythm: EKG: ECHO: Stress Test: Cardiac Cath: PCI: CT Surgery: Holter monitor: EPS: PPM: CXR: Chest CT Scan: Physical Exam Const alert and oriented x3 HEENT normocephalic Eyes EOMs intact bilaterally Neck no JVD Chest inspection of chest normal Resp normal respiratory effort Auscultation: rhonchi throughout Cardio Rate: tachycardic Rhythm: abnormal rhythm irregularly irregular Heart Sounds: S1 normal and S2 normal; Negative for click, gallop or murmur GI soft to palpation Extremity General Extremity: edema bilateral lower extremity Details: mild Skin Skin Narrative: Hyperkeratosis and hyperpigmentation noted on bilateral lower extremities. Neuro Neuro Narrative: Alert and oriented x 3 Psych mental status grossly normal Assessment & Plan Assessment/Plan (1) Atrial fibrillation with RVR: PLAN: Patient remains in atrial fibrillation. I am uncertain of the duration ofhis atrial fibrillation it is probably within the last 2 months as best we can ascertain. He has been on Eliquis for 3 weeks. The patient's heart rate remains less than optimally controlled at 100-120 bpm on telemetry. His blood pressure is 95/60 which limits some of the rate modulating drugs we can utilize. He is currentlytolerating metoprolol 100 mg twice daily. I recommend we add Lanoxin 0.5 mg this morning and 0.25 later today orally. He will then be placed on 0.25 daily and we will reevaluate him in 1 week in the office with a Lanoxin level and EKG. Following 3?4 more weeks of Eliquis would consider bringing the patient back forattempted direct-current cardioversion. Both atria are only mildly enlarged on echocardiogram done this admission. Another alternative would be addition of amiodarone to the patient's medical therapy in the ambulatory setting. This is an attempt to to obtain chemical cardioversion or if that fails a better chance at maintenance of sinus rhythm should a direct-current cardioversion be successful. Decision on amiodarone be made when he is evaluated in 1 week in the office. (2) Acute systolic CHF (congestive heart failure): PLAN: Patient's heart failure reduced ejection fraction EF is 10%. He does havemild biatrial enlargement he is on Jardiance 10 mg daily. He is now on Lanoxin 250 mcg daily. Furosemide 40 mg twice daily lisinopril 2.5 mg twice daily metoprolol tartrate 100 mg twice daily and spironolactone 25 mg daily. This represents maximum guideline directed medical therapy and his blood pressure is tolerating it however his heart rate remains elevated. We are trying to addressthat by adding Lanoxin to his medical therapy. The basic metabolic panel will be checked in 1 week. Today will obtain an N- terminal proBNP for baseline this will be repeated in the future. The patient will be reevaluated in our office at the [facility] 1 week after discharge with an ECG and a discussion concerning addition of amiodarone and discontinuation of Lanoxin at that time and then plan direct-current cardioversion 3 to 4 weeks later. PLAN: Plan 1. Continue current medical therapy. 2. Will add Lanoxin for rate control. 3. If blood pressure heart rate and renal functions are remained stable should be able to dischargeto home in the next 24 hours. 4. After discharge follow-up in the [facility] office in 1 week for ECG and further treatment options as noted in #2 above. Charges/Coding Visit Charges Inpatient E&M: 20043 [facility] Hosp 03/26/25 0961 Cosigner Signature (if applicable): CC: ~ Signed [facility]05-06-2025 Progress note Author Derrick Chacon [facility] Note Date/Time March 25, 2025 4:30pm [facility] Medical Records Department [address] [place] [address] Progress Note - Hospitalist 03/25/25 1626 MR#: [id number] Acct: [id number] Name: KELVIN HERNANDEZ Jr. Rep #:[id number] : 1955 69 From: Derrick eHnry PCP: Dr. Lee Mathews MD Status :ADM IN Location: [place] [address] Reason for Visit Reason for Visit: Diagnoses Nicotine dependence, unspecified, uncomplicated (03/20/25) Unspecified atrial fibrillation (03/20/25) Acute systolic (congestive) heart failure (03/20/25) Dyspnea, unspecified (03/20/25) Abnormal findings on diagnostic imaging of heart and coronary circulation (03/20/25) Personal history of other diseases of the respiratory system (03/20/25) Objective Data Objective Data Vital Signs: Vital Signs Temp Pulse Resp BP Pulse Ox O2 Del Method 97.5 F L 67 18 100/86 H 94 Room Air 03/25/25 10:37 03/25/25 10:37 03/25/25 10:37 03/25/25 10:37 03/25/25 10:37 03/25/25 14:51 Oxygen Delivery Method Room Air Weight: 255 lb 8.252 oz Body Mass Index (BMI) 38.8 Intake & Output: Intake and Output for Last 24 Hours 03/23/25 03/24/25 03/25/25 23:59 23:59 23:59 Intake Total 970.00 / 970.00 968.75 / 968.75 1001.25 / 1001.25 Output Total 1275 / 1475 850 / 850 0 / 0 Balance -305.00 / -505.00 118.75 / 118.75 1001.25 / 1001.25 Lab / Micro Data 03/24/25 02:59 03/24/25 02:59 Rhythm Strip Rhythm Strip: A-fib Rate: 110 Physical Exam Narrative Seen and examined. At present, patient denies chest pain or shortness of breath. Had cardiac cath in the morning and reported normal coronary arteries. Patient has chronic dermatitis since young age. Physical exam General: Alert, Oriented x3, Cooperative. BMI 38.9 kg/m? HEENT: Atraumatic, PERRLA, EOMI, Normocephalic. Oral: No Gingival or Mucosal Lesions/ Ulcerations Neck: Supple, No JVD, Negative Carotid Bruits Chest wall/Lungs: Air entry diminished in bilateral lung bases. No crepitation/rhonchi Cardiovascular: A-fib, Normal S1,S2, systolic murmur LLSB and cardiac apex Abdomen: Bowel Sounds Present, Soft, Non Tender, Non-Distended : No dysuria. No renal angle tenderness. No suprapubic tenderness. Extremities: 2+ bilateral pitting edema, Capillary Refill Less than 3 Seconds Skin: Chronic dermatitis with dry, rough, thick skin all over the body. Musculoskeletal: No Tenderness to Palpation of Joints or Extremities. ROM intact. Neurological: Cranial nerves II-XII grossly intact, DTR 2+/4. No acute focal neurological deficit. Psych/Mental Status: Normal Affect, Appropriate. Assessment & Plan Assessment/Plan (1) Acute systolic CHF (congestive heart failure): (2) Atrial fibrillation with RVR: PLAN: Plan Patient is a 69-year-old gentleman who was sent to the ED by the primary care physician on account of increasing shortness of breath with minimal activity as well as generalized swelling. An assessment of acute congestive heart failure was made admitted to monitored bed for further management 1. Acute congestive heart failure with reduced ejection from ? Admitted to monitored bed manage with strict input and output, daily weight,fluid restriction, low-sodium diet as well as diuretic therapy with furosemide drip. Echo ordered for EF assessment. Consult was placed to cardiology ? Patient has responded to diuretic therapy. Patient weight on admission was 121 currently down to 117 kg 2D echo obtained on 03/21/2025 did show The estimatedejection fraction is 10-15 %. Moderate concentric left ventricular hypertrophy. Moderate global right ventricular systolic dysfunction. Moderately dilated rightventricle. The left atrium is mildly enlarged. The right atrium is mildly enlarged. Mild (1+) mitral valve insufficiency. Mild (1+) eccentric tricuspid valve insufficiency. Consult was placed to cardiology patient seen by Dr. Freitas his notes and recommendations reviewed 03/24: Patient underwent cardiac cath and reported normal coronaries. Dilated cardiomyopathy. 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 Spironolactone added. SGLT2 started. Continue beta-shaniqua, metoprolol increased to 50 mg twice daily. After rate is controlled can switch to carvedilol. Lisinopril 2.5 mg twice daily started before send tolerated then switch to Entresto as an outpatient. Continue goal-directed guideline recommended therapy. 03/25: Patient medication is getting optimized. On furosemide 40 milligram IV twice daily, switch to oral tomorrow. 2. Paroxysmal atrial fibrillation ? Patient presented with RVR. Patient was started on Cardizem drip admitted to monitored bed. Cardizem drip being titrated to keep heart rate less than 100 03/24: Patient has A-fib with RVR. Metoprolol dose increased to 75 mg twice daily. Digoxin dose to 50 mg added. On Eliquis resumed in the evening today. 3. Acute kidney injury ? Creatinine from 03/03/2025 was 1.06 creatinine on admission was 1.50. This is suspected to be secondary to hypoperfusion from CHF do expect improvement in kidney function with with diuresis. Repeat BMP ordered in a.m. for monitoring ? 03/22/2025; patient creatinine down to 1.18 ? 03/23/2025; creatinine stable at 1.17 03/24: Creatinine 1.26. 03/25: Labs ordered 4. Runs of nonsustained VT ? Attributed to patient severe cardiomyopathy. Plan is to continue with telemetry monitoring 5. Hypokalemia ? Corrected for protocol. Also recheck magnesium as well as phosphorus levels 6. Essential hypertension Patient is on metoprolol did continue lisinopril was held given patient worsening kidney function 7. COPD ? Currently not in exacerbation aerosol treatment as needed 8. Abnormal LFTs ? Suspected to be secondary to hepatic congestion from CHF repeated LFTs in a.m.for further management ? 03/22/2025; patient LFTs still remain elevated. 9. Elevated troponin Suspected to be secondary to demand ischemia from congestive heart failure. Patient troponins have remained flat. Echo has been ordered for LVEF assessment 10. Class III obesity with BMI of 40.6 ? Complicating care weight loss advised 11. Tobacco dependence ? Counseled on cessation, offered nicotine patch for tobacco cravings 12. DVT prophylaxis ? Patient is on systemic anticoagulation Charges/Coding Visit Charges Inpatient E&M: 68775 Subs Hosp L2 03/25/25 1630 <Electronically signed by Derrick Chacon MD> Cosigner Signature (if applicable): CC: ~ Signed [facility] Work Phone: [phone] 126-375005-06-2025 Progress note [facility] Medical Records Department [address] [place] [address] Progress Note - Hospitalist 03/25/25 1626 MR#: [id number] Acct: [id number] Name: KELVIN HERNANDEZ Jr. Rep #:[id number] : 1955 69 From: Derrick Henry PCP: Dr. Lee Mathews MD Status :ADM IN Location: [place] [address]- Reason for Visit Reason for Visit: Diagnoses Nicotine dependence, unspecified, uncomplicated (03/20/25) Unspecified atrial fibrillation (03/20/25) Acute systolic (congestive) heart failure (03/20/25) Dyspnea, unspecified (03/20/25) Abnormal findings on diagnostic imaging of heart and coronary circulation (03/20/25) Personal history of other diseases of the respiratory system (03/20/25) Objective Data Objective Data Vital Signs: Vital Signs Temp Pulse Resp BP Pulse Ox O2 Del Method 97.5 F L 67 18 100/86 H 94 Room Air 03/25/25 10:37 03/25/25 10:37 03/25/25 10:37 03/25/25 10:37 03/25/25 10:37 03/25/25 14:51 Oxygen Delivery Method Room Air Weight: 255 lb 8.252 oz Body Mass Index (BMI) 38.8 Intake & Output: Intake and Output for Last 24 Hours 03/23/25 03/24/25 03/25/25 23:59 23:59 23:59 Intake Total 970.00 / 970.00 968.75 / 968.75 1001.25 / 1001.25 Output Total 1275 / 1475 850 / 850 0 / 0 Balance -305.00 / -505.00 118.75 / 118.75 1001.25 / 1001.25 Lab / Micro Data 03/24/25 02:59 03/24/25 02:59 Rhythm Strip Rhythm Strip: A-fib Rate: 110 Physical Exam Narrative Seen and examined. At present, patient denies chest pain or shortness of breath. Had cardiac cath in the morning and reported normal coronary arteries. Patient has chronic dermatitis since young age. Physical exam General: Alert, Oriented x3, Cooperative. BMI 38.9 kg/m? HEENT: Atraumatic, PERRLA, EOMI, Normocephalic. Oral: No Gingival or Mucosal Lesions/ Ulcerations Neck: Supple, No JVD, Negative Carotid Bruits Chest wall/Lungs: Air entry diminished in bilateral lung bases. No crepitation/rhonchi Cardiovascular: A-fib, Normal S1,S2, systolic murmur LLSB and cardiac apex Abdomen: Bowel Sounds Present, Soft, Non Tender, Non-Distended : No dysuria. No renal angle tenderness. No suprapubic tenderness. Extremities: 2+ bilateral pitting edema, Capillary Refill Less than 3 Seconds Skin: Chronic dermatitis with dry, rough, thick skin all over the body. Musculoskeletal: No Tenderness to Palpation of Joints or Extremities. ROM intact. Neurological: Cranial nerves II-XII grossly intact, DTR 2+/4. No acute focal neurological deficit. Psych/Mental Status: Normal Affect, Appropriate. Assessment & Plan Assessment/Plan (1) Acute systolic CHF (congestive heart failure): (2) Atrial fibrillation with RVR: PLAN: Plan Patient is a 69-year-old gentleman who was sent to the ED by the primary care physician on account of increasing shortness of breath with minimal activity as well as generalized swelling. An assessment of acute congestive heart failure was made admitted to monitored bed for further management 1. Acute congestive heart failure with reduced ejection from ? Admitted to monitored bed manage with strict input and output, daily weight,fluid restriction, low-sodium diet as well as diuretic therapy with furosemide drip. Echo ordered for EF assessment. Consult was placed to cardiology ? Patient has responded to diuretic therapy. Patient weight on admission was 121 currently down to 117 kg 2D echo obtained on 03/21/2025 did show The estimatedejection fraction is 10-15 %. Moderate concentric left ventricular hypertrophy. Moderate global right ventricular systolic dysfunction. Moderately dilated rightventricle. The left atrium is mildly enlarged. The right atrium is mildly enlarged. Mild (1+) mitral valve insufficiency. Mild (1+) eccentric tricuspid valve insufficiency. Consult was placed to cardiology patient seen by Dr. Freitas his notes and recommendations reviewed 03/24: Patient underwent cardiac cath and reported normal coronaries. Dilated cardiomyopathy. Seen bycardiologist recommend continue IV furosemide. Spironolactone added. SGLT2 started. Continue beta-shaniqua, metoprolol increased to 50 mg twice daily. After rate is controlled can switch to carvedilol. Lisinopril 2.5 mg twice daily started before send tolerated then switch to Entresto as an outpatient. Continue goal-directed guideline recommended therapy. 03/25: Patient medication is getting optimized. On furosemide 40 milligram IV twice daily, switch to oral tomorrow. 2. Paroxysmal atrial fibrillation ? Patient presented with RVR. Patient was started on Cardizem drip admitted to monitored bed. Cardizem drip being titrated to keep heart rate less than 100 5/: Patient has A-fib with RVR. Metoprolol dose increased to 75 mg twice daily. Digoxin dose to 50mg added. On Eliquis resumed in the evening today. 3. Acute kidney injury ? Creatinine from 03/03/2025 was 1.06 creatinine on admission was 1.50. This is suspected to be secondary to hypoperfusion from CHF do expect improvement in kidney function with with diuresis. Repeat BMP ordered in a.m. for monitoring ? 03/22/2025; patient creatinine down to 1.18 ? 03/23/2025; creatinine stable at 1.17 03/24: Creatinine 1.26. 03/25: Labs ordered 4. Runs of nonsustained VT ? Attributed to patient severe cardiomyopathy. Plan is to continue with telemetry monitoring 5. Hypokalemia ? Corrected for protocol. Also recheck magnesium as well as phosphorus levels 6. Essential hypertension Patient is on metoprolol did continue lisinopril was held given patient worsening kidney function 7. COPD ? Currently not in exacerbation aerosol treatment as needed 8. Abnormal LFTs ? Suspected to be secondary to hepatic congestion from CHF repeated LFTs in a.m.for further management ? 03/22/2025; patient LFTs still remain elevated. 9. Elevated troponin Suspected to be secondary to demand ischemia from congestive heart failure. Patient troponins have remained flat. Echo has been ordered for LVEF assessment 10. Class III obesity with BMI of 40.6 ? Complicating care weight loss advised 11. Tobacco dependence ? Counseled on cessation, offered nicotine patch for tobacco cravings 12. DVT prophylaxis ? Patient is on systemic anticoagulation Charges/Coding Visit Charges Inpatient E&M: 81538 Subs Hosp L2 03/25/25 0190 Cosigner Signature (if applicable): CC: ~ Signed [facility] [id number] Progress note Author Madhu Bautista [facility] Note Date/Time March 25, 2025 9:54am [facility] Medical Records Department [address] [place] [address] Progress Note - Cardiology 03/25/25821 MR#: [id number] Acct: [id number] Name: KELVIN HERNANDEZ Jr. Rep #:[id number] : 1955 69 From: Madhu Bautista MD PCP: Dr. Lee Mathews MD Status :ADM IN Location: [address] 1 Subjective Subjective Patient seen at the bedside this morning. He sitting up in the chair in no apparent distress. He denies any significant shortness of breath reports that his lower extremity edema has markedly improved since admission. The patient does tell me that he has noticed the lower extremity edema started after a viral infection and bronchitis in early January 2025. Prior to that time he had had an episode of longstanding history with palpitations. He had never been told that he had atrial fibrillation to his knowledge. It does appear thathe was diagnosed with atrial fibrillation sometime in January 2025 as he was placed on Eliquis about 3 weeks ago. The patient is not sure when he originallywent into atrial fibrillation. He does notice that his lower extremity edema became markedly worse after his viral infection in January 2025. Patient's catheterization showed normal coronary arteries and his EF is known denton in the 10-15% range. The patient is being titrated on guideline directed medical therapy. Objective Data Vital Signs: Vital Signs Temp Pulse Resp BP Pulse Ox O2 Del Method 98.2 F 107 H 16 108/82 H 95 Room Air 03/25/25 06:20 03/25/25 06:20 03/25/25 06:20 03/25/25 06:20 03/25/25 06:20 03/25/25 06:20 Oxygen Delivery Method Room Air Weight: 255 lb 8.252 oz Body Mass Index (BMI) 38.8 Intake & Output: Intake and Output for Last 24 Hours 03/23/25 03/24/25 03/25/25 23:59 23:59 23:59 Intake Total 970.00 / 970.00 968.75 / 968.75 240 / 240 Output Total 1275 / 1475 850 / 850 0 / 0 Balance -305.00 / -505.00 118.75 / 118.75 240 / 240 Lab / Micro Data Attestation: I reviewed the patient's lab results. 03/24/25 02:59 03/24/25 02:59 Labs: Laboratory Results - last 24 hr 03/24/25 09:35: APTT 34.6 Rhythm Strip Rhythm Strip: A-fib Rate: 110 Cardiology Labs/Tests 03/24/25 09:35: APTT 34.6 Rhythm: EKG: ECHO: Stress Test: Cardiac Cath: PCI: CT Surgery: Holter monitor: EPS: PPM: CXR: Chest CT Scan: Physical Exam Const alert and oriented x3 HEENT normocephalic Eyes EOMs intact bilaterally Neck no JVD Neck Narrative: At 90 degrees in the chair. Chest inspection of chest normal Resp normal respiratory effort Auscultation: crackles bilateral lower Cardio Cardio Narrative: Distant heart tones Rate: tachycardic Rhythm: abnormal rhythm irregularly irregular Heart Sounds: S1 normal and S2 normal; Negative for click, gallop or murmur Extremity General Extremity: edema right lower extremity moderate and left lower extremitymild Skin Skin Narrative: Hyperkeratotic changes over the patient's lower extremities Neuro Neuro Narrative: Alert and oriented x 3 Psych mental status grossly normal Assessment & Plan Assessment/Plan (1) Atrial fibrillation with RVR: PLAN: Patient's heart rate remains elevated in the 100-115 bpm range. He is on metoprolol 75 mg twice daily. Will increase this to 100 mg twice daily and monitor his blood pressure response and heart rate. The patient remains on Eliquis he has been on it for 3 weeks. Echocardiogram shows mild biatrial enlargement. It is difficult to determine the onset of his atrial fibrillation. (2) Acute systolic CHF (congestive heart failure): PLAN: Patient's LV dysfunction ejection fraction reduced to approximately 10%. Catheterization yesterday showed normal coronary arteries. This decompensation appears to be temporally correlated with a viral infection approximately 2 months ago. Patient is currently on afterload reduction therapy, diuretic therapy, beta- shaniqua therapy, and Jardiance. The patient is not on spironolactone at this point in time his creatinine is 1.26 we are monitoring his renal response to hiscurrent therapies. Spironolactone will be added in the ambulatory setting. Recommend the patient be up and ambulatory to assess his response to his titration of his medical therapy. Tentative discharge to home in the next 24 hours. 03/25/25953 <Electronically signed by Madhu Bautista MD> Cosigner Signature (if applicable): CC: ~ Signed [facility] Work Phone: [phone] 232-249405-06-2025 Progress note [facility] Medical Records Department [address] [place] [address] Progress Note - Cardiology 03/25/25821 MR#: [id number] Acct: [id number] Name: KELVIN HERNANDEZ Jr. Rep #:[id number] : 1955 69 From: Madhu Bautista MD PCP: Dr. Lee Mathews MD Status :ADM IN Location: [place] [id number]- 1 Subjective Subjective Patient seen at the bedside this morning. He sitting up in the chair in no apparent distress. He denies any significant shortness of breath reports that his lower extremity edema has markedly improved since admission. The patient does tell me that he has noticed the lower extremity edema started after a viral infection and bronchitis in early January 2025. Prior to that time he had had an episode of longstanding history with palpitations. He had never been told that he had atrial fibrillation to his knowledge. It does appear thathe was diagnosed with atrial fibrillation sometime in January 2025 as he was placed onEliquis about 3 weeks ago. The patient is not sure when he originallywent into atrial fibrillation.He does notice that his lower extremity edema became markedly worse after his viral infection in January 2025. Patient's catheterization showed normal coronary arteries and his EF is known denton in the 10-15% range. The patient is being titrated on guideline directed medical therapy. Objective Data Vital Signs: Vital Signs Temp Pulse Resp BP Pulse Ox O2 Del Method 98.2 F 107 H 16 108/82 H 95 Room Air 03/25/25 06:20 03/25/25 06:20 03/25/25 06:20 03/25/25 06:20 03/25/25 06:20 03/25/25 06:20 Oxygen Delivery Method Room Air Weight: 255 lb 8.252 oz Body Mass Index (BMI) 38.8 Intake & Output: Intake and Output for Last 24 Hours 03/23/25 03/24/2503/25/25 23:59 23:59 23:59 Intake Total 970.00 / 970.00 968.75 / 968.75 240 / 240 Output Total 1275 / 1475 850 / 850 0 / 0 Balance -305.00 / -505.00 118.75 / 118.75 240 / 240 Lab / Micro Data Attestation: I reviewed the patient's lab results. 03/24/25 02:59 03/24/25 02:59 Labs: Laboratory Results - last 24 hr 03/24/25 09:35: APTT 34.6 Rhythm Strip Rhythm Strip: A-fib Rate: 110 Cardiology Labs/Tests 03/24/25 09:35: APTT 34.6 Rhythm: EKG: ECHO: Stress Test: Cardiac Cath: PCI: CT Surgery: Holter monitor: EPS: PPM: CXR: Chest CT Scan: Physical Exam Const alert and oriented x3 HEENT normocephalic Eyes EOMs intact bilaterally Neck no JVD Neck Narrative: At 90 degrees in the chair. Chest inspection of chest normal Resp normal respiratory effort Auscultation: crackles bilateral lower Cardio Cardio Narrative: Distant heart tones Rate: tachycardic Rhythm: abnormal rhythm irregularly irregular Heart Sounds: S1 normal and S2 normal; Negative for click, gallop or murmur Extremity General Extremity: edema right lower extremity moderate and left lower extremitymild Skin Skin Narrative: Hyperkeratotic changes over the patient's lower extremities Neuro Neuro Narrative: Alert and oriented x 3 Psych mental status grossly normal Assessment & Plan Assessment/Plan (1) Atrial fibrillation with RVR: PLAN: Patient's heart rate remains elevated in the 100-115 bpm range. He is on metoprolol 75 mg twice daily. Will increase this to 100 mg twice daily and monitor his blood pressure response and heartrate. The patient remains on Eliquis he has been on it for 3 weeks. Echocardiogram shows mild biatrial enlargement. It is difficult to determine the onset of his atrial fibrillation. (2) Acute systolic CHF (congestive heart failure): PLAN: Patient's LV dysfunction ejection fraction reduced to approximately 10%. Catheterization yesterday showed normal coronary arteries. This decompensation appears to be temporally correlated with a viral infection approximately 2 months ago. Patient is currently on afterload reduction therapy, diuretic therapy, beta- shaniqua therapy, and Jardiance. The patient is not on spironolactone at this point in time his creatinine is 1.26 we are monitoring his renal response to hiscurrent therapies. Spironolactone will be added in the ambulatory setting. Recommend the patient be up and ambulatory to assess his response to his titration of his medical therapy. Tentative discharge to home in the next 24 hours. 03/25/25 0954 Cosigner Signature (if applicable): CC: ~ Signed [facility]05-05-2025 Progress note Author Derrick Chacon [facility] Note Date/Time March 24, 2025 4:44pm [facility] Medical Records Department [address] [place] [address] Progress Note - Hospitalist 03/24/25 1424 MR#: [id number] Acct: [id number] Name: KELVIN HERNANDEZ JrSavita Rep #:[id number] : 1955 69 From: Drerick Henry PCP: Dr. Lee Mathews MD Status :ADM IN Location: [place] [id number]- 1 Reason for Visit Reason for Visit: Diagnoses Nicotine dependence, unspecified, uncomplicated (03/20/25) Unspecified atrial fibrillation (03/20/25) Acute systolic (congestive) heart failure (03/20/25) Dyspnea, unspecified (03/20/25) Abnormal findings on diagnostic imaging of heart and coronary circulation (03/20/25) Personal history of other diseases of the respiratory system (03/20/25) Objective Data Objective Data Vital Signs: Vital Signs Temp Pulse Resp BP Pulse Ox O2 Del Method 97.8 F 101 H 16 110/76 94 Room Air 03/24/25 13:56 03/24/25 13:56 03/24/25 13:56 03/24/25 13:56 03/24/25 13:56 03/24/25 13:56 Oxygen Delivery Method Room Air Weight: 255 lb 11.779 oz Body Mass Index (BMI) 38.9 Intake & Output: Intake and Output for Last 24 Hours 03/22/25 03/23/25 03/24/25 23:59 23:59 23:59 Intake Total 1410 / 1410 970.00 / 970.00 490.00 / 490.00 Output Total 2500 / 2500 1275 / 1475 600 / 600 Balance -1090 / -1090 -305.00 / -505.00 -110.00 / -110.00 Lab / Micro Data 03/24/25 02:59 03/24/25 02:59 Labs: Laboratory Results - last 24 hr 03/23/25 20:31: APTT 83.8 H 03/24/25 02:59: WBC 7.4, RBC 4.84, Hgb 15.3, Hct 45.4, MCV 93.8, MCH 31.6, MCHC 33.7, RDW Std Deviation 52.7 H, RDW Coeff of Hair 15.5 H, Plt Count 83 L, MPV 11.0, Immature Gran % (Auto) 0.400, Neut % (Auto) 56.7, Lymph % (Auto) 31.6, [place] % (Auto) 10.2 H, Eos % (Auto) 0.7, Baso % (Auto) 0.4, Absolute Neuts (auto) 4.2, Absolute Lymphs (auto) 2.32, Nucleated RBC % 0, APTT 87.8 H, Sodium 138, Potassium 3.7, Chloride 97 L, Carbon Dioxide 29.1, Anion Gap 12, BUN 26 H, Creatinine 1.26 H, Estim Creat Clear Calc 66.51, Est GFR (MDRD) Non-Af 61, BUN/Creatinine Ratio 20.5 H, Glucose 106 H, Calcium 8.2, Phosphorus 4.4, Magnesium 2.1, Total Bilirubin 1.30, Direct Bilirubin 0.70 H, AST 60 H, ALT 80 H, Alkaline Phosphatase 152 H, Total Protein 5.7 L, Albumin 3.4, Globulin 2.3 03/24/25 09:35: APTT 34.6 Physical Exam Narrative Seen and examined. At present, patient denies chest pain or shortness of breath. Had cardiac cath in the morning and reported normal coronary arteries. Patient has chronic dermatitis since young age. Physical exam General: Alert, Oriented x3, Cooperative. BMI 38.9 kg/m? HEENT: Atraumatic, PERRLA, EOMI, Normocephalic. Oral: No Gingival or Mucosal Lesions/ Ulcerations Neck: Supple, No JVD, Negative Carotid Bruits Chest wall/Lungs: Air entry diminished in bilateral lung bases. No crepitation/rhonchi Cardiovascular: A-fib, Normal S1,S2, systolic murmur LLSB and cardiac apex Abdomen: Bowel Sounds Present, Soft, Non Tender, Non-Distended : No dysuria. No renal angle tenderness. No suprapubic tenderness. Extremities: 2+ bilateral pitting edema, Capillary Refill Less than 3 Seconds Skin: Chronic dermatitis with dry, rough, thick skin all over the body. Musculoskeletal: No Tenderness to Palpation of Joints or Extremities. ROM intact. Neurological: Cranial nerves II-XII grossly intact, DTR 2+/4. No acute focal neurological deficit. Psych/Mental Status: Normal Affect, Appropriate. Assessment & Plan Assessment/Plan (1) Acute systolic CHF (congestive heart failure): (2) Atrial fibrillation with RVR: PLAN: Plan Patient is a 69-year-old gentleman who was sent to the ED by the primary care physician on account of increasing shortness of breath with minimal activity as well as generalized swelling. An assessment of acute congestive heart failure was made admitted to monitored bed for further management 1. Acute congestive heart failure with reduced ejection from ? Admitted to monitored bed manage with strict input and output, daily weight,fluid restriction, low-sodium diet as well as diuretic therapy with furosemide drip. Echo ordered for EF assessment. Consult was placed to cardiology ? Patient has responded to diuretic therapy. Patient weight on admission was 121 currently down to 117 kg 2D echo obtained on 03/21/2025 did show The estimatedejection fraction is 10-15 %. Moderate concentric left ventricular hypertrophy. Moderate global right ventricular systolic dysfunction. Moderately dilated rightventricle. The left atrium is mildly enlarged. The right atrium is mildly enlarged. Mild (1+) mitral valve insufficiency. Mild (1+) eccentric tricuspid valve insufficiency. Consult was placed to cardiology patient seen by Dr. Freitas his notes and recommendations reviewed 03/24: Patient underwent cardiac cath and reported normal coronaries. Dilated cardiomyopathy. 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 Spironolactone added. SGLT2 started. Continue beta-shaniqua, metoprolol increased to 50 mg twice daily. After rate is controlled can switch to carvedilol. Lisinopril 2.5 mg twice daily started before send tolerated then switch to Entresto as an outpatient. Continue goal-directed guideline recommended therapy. 2. Paroxysmal atrial fibrillation ? Patient presented with RVR. Patient was started on Cardizem drip admitted to monitored bed. Cardizem drip being titrated to keep heart rate less than 100 03/24: Patient has A-fib with RVR. Metoprolol dose increased to 75 mg twice daily. Digoxin dose to 50 mg added. On Eliquis resumed in the evening today. 3. Acute kidney injury ? Creatinine from 03/03/2025 was 1.06 creatinine on admission was 1.50. This is suspected to be secondary to hypoperfusion from CHF do expect improvement in kidney function with with diuresis. Repeat BMP ordered in a.m. for monitoring ? 03/22/2025; patient creatinine down to 1.18 ? 03/23/2025; creatinine stable at 1.17 03/24: Creatinine 1.26. 4. Runs of nonsustained VT ? Attributed to patient severe cardiomyopathy. Plan is to continue with telemetry monitoring 5. Hypokalemia ? Corrected for protocol. Also recheck magnesium as well as phosphorus levels 6. Essential hypertension Patient is on metoprolol did continue lisinopril was held given patient worsening kidney function 7. COPD ? Currently not in exacerbation aerosol treatment as needed 8. Abnormal LFTs ? Suspected to be secondary to hepatic congestion from CHF repeated LFTs in a.m.for further management ? 03/22/2025; patient LFTs still remain elevated. 9. Elevated troponin Suspected to be secondary to demand ischemia from congestive heart failure. Patient troponins have remained flat. Echo has been ordered for LVEF assessment 10. Class III obesity with BMI of 40.6 ? Complicating care weight loss advised 11. Tobacco dependence ? Counseled on cessation, offered nicotine patch for tobacco cravings 12. DVT prophylaxis ? Patient is on systemic anticoagulation Charges/Coding Visit Charges Inpatient E&M: 22272 Subs Hosp L2 03/24/25 1644 <Electronically signed by Derrick Chacon MD> Cosigner Signature (if applicable): CC: ~ Signed [facility] Work Phone: [phone] 587-387505-05-2025 Progress note [facility] Medical Records Department [address] [place] [address] Progress Note - Hospitalist 03/24/25 1424 MR#: [id number] Acct: [id number] Name: KELVIN HERNANDEZ Jr. Rep #:[id number] : 1955 69 From: Derrick Henry PCP: Dr. Lee Mathews MD Status :ADM IN Location: [place] [id number]- [id number] Reason for Visit Reason for Visit: Diagnoses Nicotine dependence, unspecified, uncomplicated (03/20/25) Unspecified atrial fibrillation (03/20/25) Acute systolic (congestive) heart failure (03/20/25) Dyspnea, unspecified (03/20/25) Abnormal findings on diagnostic imaging of heart and coronary circulation (03/20/25) Personal history of other diseases of the respiratory system (03/20/25) Objective Data Objective Data Vital Signs: Vital Signs Temp Pulse Resp BP Pulse Ox O2 Del Method 97.8 F 101 H 16 110/76 94 Room Air 03/24/25 13:56 03/24/25 13:56 03/24/25 13:56 03/24/25 13:56 03/24/25 13:56 03/24/25 13:56 Oxygen Delivery Method Room Air Weight: 255 lb 11.779 oz Body Mass Index (BMI) 38.9 Intake & Output: Intake and Output for Last 24 Hours 03/22/25 03/23/25 03/24/25 23:59 23:59 23:59 Intake Total 1410 / 1410 970.00 / 970.00 490.00 / 490.00 Output Total 2500 / 2500 1275 / 1475 600 / 600 Balance -1090 / -1090 -305.00 / -505.00 -110.00 / -110.00 Lab / Micro Data 03/24/25 02:59 03/24/25 02:59 Labs: Laboratory Results - last 24 hr 03/23/25 20:31: APTT 83.8 H 03/24/25 02:59: WBC 7.4, RBC 4.84, Hgb 15.3, Hct 45.4, MCV 93.8, MCH 31.6, MCHC 33.7, RDW Std Deviation 52.7 H, RDW Coeff of Hair 15.5 H, Plt Count 83 L, MPV 11.0, Immature Gran % (Auto) 0.400, Neut %(Auto) 56.7, Lymph % (Auto) 31.6, [place] % (Auto) 10.2 H, Eos % (Auto) 0.7, Baso % (Auto) 0.4, Absolute Neuts (auto) 4.2, Absolute Lymphs (auto) 2.32, Nucleated RBC % 0, APTT 87.8 H, Sodium 138, [place] um 3.7, Chloride 97 L, Carbon Dioxide 29.1, Anion Gap 12, BUN 26 H, Creatinine 1.26 H, Estim Creat Clear Calc 66.51, Est GFR (MDRD) Non-Af 61, BUN/Creatinine Ratio 20.5 H, Glucose 106 H, Calcium 8.2,Phosphorus 4.4, Magnesium 2.1, Total Bilirubin 1.30, Direct Bilirubin 0.70 H, AST 60 H, ALT 80 H, Alkaline Phosphatase 152 H, Total Protein 5.7 L, Albumin 3.4, Globulin 2.3 03/24/25 09:35: APTT 34.6 Physical Exam Narrative Seen and examined. At present, patient denies chest pain or shortness of breath. Had cardiac cath in the morning and reported normal coronary arteries. Patient has chronic dermatitis since young age. Physical exam General: Alert, Oriented x3, Cooperative. BMI 38.9 kg/m? HEENT: Atraumatic, PERRLA, EOMI, Normocephalic. Oral: No Gingival or Mucosal Lesions/ Ulcerations Neck: Supple, No JVD, Negative Carotid Bruits Chest wall/Lungs: Air entry diminished in bilateral lung bases. No crepitation/rhonchi Cardiovascular: A-fib, Normal S1,S2, systolic murmur LLSB and cardiac apex Abdomen: Bowel Sounds Present, Soft, Non Tender, Non-Distended : No dysuria. No renal angle tenderness. No suprapubic tenderness. Extremities: 2+ bilateral pitting edema, Capillary Refill Less than 3 Seconds Skin: Chronic dermatitis with dry, rough, thick skin all over the body. Musculoskeletal: No Tenderness to Palpation of Joints or Extremities. ROM intact. Neurological: Cranial nerves II-XII grossly intact, DTR 2+/4. No acute focal neurological deficit. Psych/Mental Status: Normal Affect, Appropriate. Assessment & Plan Assessment/Plan (1) Acute systolic CHF (congestive heart failure): (2) Atrial fibrillation with RVR: PLAN: Plan Patient is a 69-year-old gentleman who was sent to the ED by the primary care physician on account of increasing shortness of breath with minimal activity as well as generalized swelling. An assessment of acute congestive heart failure was made admitted to monitored bed for further management 1. Acute congestive heart failure with reduced ejection from ? Admitted to monitored bed manage with strict input and output, daily weight,fluid restriction, low-sodium diet as well as diuretic therapy with furosemide drip. Echo ordered for EF assessment. Consult was placed to cardiology ? Patient has responded to diuretic therapy. Patient weight on admission was 121 currently down to 117 kg 2D echo obtained on 03/21/2025 did show The estimatedejection fraction is 10-15 %. Moderate concentric left ventricular hypertrophy. Moderate global right ventricular systolic dysfunction. Moderately dilated rightventricle. The left atrium is mildly enlarged. The right atrium is mildly enlarged. Mild (1+) mitral valve insufficiency. Mild (1+) eccentric tricuspid valve insufficiency. Consult was placed to cardiology patient seen by Dr. Freitas his notes and recommendations reviewed 03/24: Patient underwent cardiac cath and reported normal coronaries. Dilated cardiomyopathy. Seen bycardiologist recommend continue IV furosemide and then switch to oral tomorrow. Spironolactone added. SGLT2 started. Continue beta- shaniqua, metoprolol increased to 50 mg twice daily. After rate is controlled can switch to carvedilol. Lisinopril 2.5 mg twice daily started before send tolerated then switch to Entresto as an outpatient. Continue goal-directed guideline recommended therapy. 2. Paroxysmal atrial fibrillation ? Patient presented with RVR. Patient was started on Cardizem drip admitted to monitored bed. Cardizem drip being titrated to keep heart rate less than 100 03/24: Patient has A-fib with RVR. Metoprolol dose increased to 75 mg twice daily. Digoxin dose to 50mg added. On Eliquis resumed in the evening today. 3. Acute kidney injury ? Creatinine from 03/03/2025 was 1.06 creatinine on admission was 1.50. This is suspected to be secondary to hypoperfusion from CHF do expect improvement in kidney function with with diuresis. Repeat BMP ordered in a.m. for monitoring ? 03/22/2025; patient creatinine down to 1.18 ? 03/23/2025; creatinine stable at 1.17 03/24: Creatinine 1.26. 4. Runs of nonsustained VT ? Attributed to patient severe cardiomyopathy. Plan is to continue with telemetry monitoring 5. Hypokalemia ? Corrected for protocol. Also recheck magnesium as well as phosphorus levels 6. Essential hypertension Patient is on metoprolol did continue lisinopril was held given patient worsening kidney function 7. COPD ? Currently not in exacerbation aerosol treatment as needed 8. Abnormal LFTs ? Suspected to be secondary to hepatic congestion from CHF repeated LFTs in a.m.for further management ? 03/22/2025; patient LFTs still remain elevated. 9. Elevated troponin Suspected to be secondary to demand ischemia from congestive heart failure. Patient troponins have remained flat. Echo has been ordered for LVEF assessment 10. Class III obesity with BMI of 40.6 ? Complicating care weight loss advised 11. Tobacco dependence ? Counseled on cessation, offered nicotine patch for tobacco cravings 12. DVT prophylaxis ? Patient is on systemic anticoagulation Charges/Coding Visit Charges Inpatient E&M: 36660 Subs Hosp L2 03/24/25 1644 Cosigner Signature (if applicable): CC: ~ Signed [facility]05-05-2025 Progress note Author Carlton Keyes [facility] Note Date/Time March 24, 2025 10:56a m [facility] Medical Records Department [facility] [place] [address] Progress Note - Cardiology 03/24/25 1051 MR#: [id number] Acct: [id number] Name: KELVIN HERNANDEZ Rep #:[id number] : 1955 69 From: Carlton Keyes MD PCP: Dr. Lee Mathews MD Status :ADM IN Location: [place] [address] Subjective Subjective Patient seen and evaluated, and the patient underwent cardiac catheterization today Objective Data Vital Signs: Vital Signs Temp Pulse Resp BP Pulse Ox O2 Del Method 97.4 F L 92 18 120/83 H 95 Room Air 03/24/25 09:41 03/24/25 09:41 03/24/25 09:41 03/24/25 09:41 03/24/25 09:41 03/24/25 09:41 Oxygen Delivery Method Room Air Weight: 255 lb 11.779 oz Body Mass Index (BMI) 38.9 Intake & Output: Intake and Output for Last 24 Hours 03/22/25 03/23/25 03/24/25 23:59 23:59 23:59 Intake Total 1410 / 1410 970.00 / 970.00 250.00 / 250.00 Output Total 2500 / 2500 1275 / 1475 600 / 600 Balance -1090 / -1090 -305.00 / -505.00 -350.00 / -350.00 Lab / Micro Data 03/24/25 02:59 03/24/25 02:59 Labs: Laboratory Results - last 24 hr 03/23/25 11:50: APTT 150.3 H* 03/23/25 20:31: APTT 83.8 H 03/24/25 02:59: WBC 7.4, RBC 4.84, Hgb 15.3, Hct 45.4, MCV 93.8, MCH 31.6, MCHC 33.7, RDW Std Deviation 52.7 H, RDW Coeff of Hair 15.5 H, Plt Count 83 L, MPV 11.0, Immature Gran % (Auto) 0.400, Neut % (Auto) 56.7, Lymph % (Auto) 31.6, [place] % (Auto) 10.2 H, Eos % (Auto) 0.7, Baso % (Auto) 0.4, Absolute Neuts (auto) 4.2, Absolute Lymphs (auto) 2.32, Nucleated RBC % 0, APTT 87.8 H, Sodium 138, Potassium 3.7, Chloride 97 L, Carbon Dioxide 29.1, Anion Gap 12, BUN 26 H, Creatinine 1.26 H, Estim Creat Clear Calc 66.51, Est GFR (MDRD) Non-Af 61, BUN/Creatinine Ratio 20.5 H, Glucose 106 H, Calcium 8.2, Phosphorus 4.4, Magnesium 2.1, Total Bilirubin 1.30, Direct Bilirubin 0.70 H, AST 60 H, ALT 80 H, Alkaline Phosphatase 152 H, Total Protein 5.7 L, Albumin 3.4, Globulin 2.3 03/24/25 09:35: APTT 34.6 Cardiology Labs/Tests 03/23/25 11:50: APTT 150.3 H* 03/23/25 20:31: APTT 83.8 H 03/24/25 02:59: WBC 7.4, RBC 4.84, Hgb 15.3, Hct 45.4, MCV 93.8, MCH 31.6, MCHC 33.7, Plt Count 83 L, MPV 11.0, Immature Gran % (Auto) 0.400, Neut % (Auto) 56.7, Lymph % (Auto) 31.6, [place] % (Auto) 10.2 H, Eos % (Auto) 0.7, Baso % (Auto)0.4, Absolute Neuts (auto) 4.2, Nucleated RBC % 0, APTT 87.8 H, Sodium 138, Potassium 3.7, Chloride 97 L, Carbon Dioxide 29.1, Anion Gap 12, BUN 26 H, Creatinine 1.26 H, Est GFR (MDRD) Non-Af 61, BUN/Creatinine Ratio 20.5 H, Vuoldob574 H, Calcium 8.2, Phosphorus 4.4, Magnesium 2.1, Total Bilirubin 1.30, Direct Bilirubin 0.70 H 03/24/25 09:35: APTT 34.6 Rhythm: EKG: ECHO: Stress Test: Cardiac Cath: PCI: CT Surgery: Holter monitor: EPS: PPM: CXR: Chest CT Scan: Physical Exam Const alert, oriented x3 and no apparent distress General Appearance: cooperative HEENT hearing grossly normal bilaterally Head and Scalp: atraumatic Eyes EOMs intact bilaterally Neck General: normal visual inspection Chest inspection of chest normal and palpation of chest normal Resp normal respiratory effort Auscultation: clear to auscultation bilaterally Cardio regular rhythm, S1 normal heart sound and S2 normal heart sound Jugular Venous Distention: JVD Rhythm: abnormal rhythm irregularly irregular GI normal to inspection, nondistended, normoactive bowel sounds Extremity Extremity Narrative: Bilateral scaliness all over skin General Extremity: edema bilateral Peripheral Pulses: Yes pulses 2+ throughout and femoral pulses present Skin Skin Narrative: ichthyosis present Neuro oriented x3 and CN's II-XII intact bilaterally Psych Appearance: grossly normal and appropriate Assessment & Plan Assessment/Plan (1) Cardiac LV ejection fraction 10-20%: PLAN: Patient has a left ventricular ejection fraction of 10% plus minus. The etiology of above is nonischemic as the cardiac catheterization today did not demonstrate any obstructive coronary disease. Will recommend * Continue Lasix intravenously and then switch to p.o. will add spironolactone * Start SGLT2 inhibitor * Continue beta-shaniqua and in light of the atrial fibrillation will increase metoprolol to 50 mg twice a day. After rate is controlled can switch to carvedilol. * Add lisinopril 2.5 mg twice a day and if patient tolerates will switch to Entresto (2) Atrial fibrillation with RVR: PLAN: Patient has atrial fibrillation with rapid ventricular response rate: And will do suggest that we increase metoprolol to 75 mg twice a day Will add 1 dose of digoxin Start anticoagulation with Eliquis this evening. (3) Acute systolic CHF (congestive heart failure): PLAN: He does have acute on chronic congestive heart failure and the plan to be to continue current medical therapy as noted above. Will continue guideline directed medical therapy. After the patient is discharged from the hospital she will followed up with our office within a week. 03/24/25 1056 <Electronically signed by Carlton Keyes MD> Cosigner Signature (if applicable): CC: ~ Signed [facility] Work Phone: [phone] 465-436205-05-2025 Progress note [facility] Medical Records Department [address] [place] [address] Progress Note - Cardiology 03/24/25 1051 MR#: [id number] Acct: [id number] Name: KELVIN HERNANDEZ JrSavita Rep #:[id number] : 1955 69 From: Carlton Keyes MD PCP: Dr. eLe Mathews MD Status :ADM IN Location: [place] [address] Subjective Subjective Patient seen and evaluated, and the patient underwent cardiac catheterization today Objective Data Vital Signs: Vital Signs Temp Pulse Resp BP Pulse Ox O2 Del Method 97.4 F L 92 18 120/83 H 95 Room Air 03/24/25 09:41 03/24/25 09:41 03/24/25 09:41 03/24/25 09:41 03/24/25 09:41 03/24/25 09:41 Oxygen Delivery Method Room Air Weight: 255 lb 11.779 oz Body Mass Index (BMI) 38.9 Intake & Output: Intake and Output for Last 24 Hours 03/22/25 03/23/25 03/24/25 23:59 23:59 23:59 Intake Total 1410 / 1410 970.00 / 970.00 250.00 / 250.00 Output Total 2500 / 2500 1275 / 1475 600 / 600 Balance -1090 / -1090 -305.00 / -505.00 -350.00 / -350.00 Lab / Micro Data 03/24/25 02:59 03/24/25 02:59 Labs: Laboratory Results - last 24 hr 03/23/25 11:50: APTT 150.3 H* 03/23/25 20:31: APTT 83.8 H 03/24/25 02:59: WBC 7.4, RBC 4.84, Hgb 15.3, Hct 45.4, MCV 93.8, MCH 31.6, MCHC 33.7, RDW Std Deviation 52.7 H, RDW Coeff of Hair 15.5 H, Plt Count 83 L, MPV 11.0, Immature Gran % (Auto) 0.400, Neut %(Auto) 56.7, Lymph % (Auto) 31.6, [place] % (Auto) 10.2 H, Eos % (Auto) 0.7, Baso % (Auto) 0.4, Absolute Neuts (auto) 4.2, Absolute Lymphs (auto) 2.32, Nucleated RBC % 0, APTT 87.8 H, Sodium 138, [place] um 3.7, Chloride 97 L, Carbon Dioxide 29.1, Anion Gap 12, BUN 26 H, Creatinine 1.26 H, Estim Creat Clear Calc 66.51, Est GFR (MDRD) Non-Af 61, BUN/Creatinine Ratio 20.5 H, Glucose 106 H, Calcium 8.2,Phosphorus 4.4, Magnesium 2.1, Total Bilirubin 1.30, Direct Bilirubin 0.70 H, AST 60 H, ALT 80 H, Alkaline Phosphatase 152 H, Total Protein 5.7 L, Albumin 3.4, Globulin 2.3 03/24/25 09:35: APTT 34.6 Cardiology Labs/Tests 03/23/25 11:50: APTT 150.3 H* 03/23/25 20:31: APTT 83.8 H 03/24/25 02:59: WBC 7.4, RBC 4.84, Hgb 15.3, Hct 45.4, MCV 93.8, MCH 31.6, MCHC 33.7, Plt Count 83 L, MPV 11.0, Immature Gran % (Auto) 0.400, Neut % (Auto) 56.7, Lymph % (Auto) 31.6, [place] % (Auto) 10.2 H, Eos % (Auto) 0.7, Baso % (Auto)0.4, Absolute Neuts (auto) 4.2, Nucleated RBC % 0, APTT 87.8 H,Sodium 138, Potassium 3.7, Chloride 97 L, Carbon Dioxide 29.1, Anion Gap 12, BUN 26 H, Creatinine 1.26 H, Est GFR (MDRD) Non-Af 61, BUN/Creatinine Ratio 20.5 H, [id number] H, Calcium 8.2, Phosphorus 4.4, Magnesium 2.1, Total Bilirubin 1.30, Direct Bilirubin 0.70 H 03/24/25 09:35: APTT 34.6 Rhythm: EKG: ECHO: Stress Test: Cardiac Cath: PCI: CT Surgery: Holter monitor: EPS: PPM: CXR: Chest CT Scan: Physical Exam Const alert, oriented x3 and no apparent distress General Appearance: cooperative HEENT hearing grossly normal bilaterally Head and Scalp: atraumatic Eyes EOMs intact bilaterally Neck General: normal visual inspection Chest inspection of chest normal and palpation of chest normal Resp normal respiratory effort Auscultation: clear to auscultation bilaterally Cardio regular rhythm, S1 normal heart sound and S2 normal heart sound Jugular Venous Distention: JVD Rhythm: abnormal rhythm irregularly irregular GI normal to inspection, nondistended, normoactive bowel sounds Extremity Extremity Narrative: Bilateral scaliness all over skin General Extremity: edema bilateral Peripheral Pulses: Yes pulses 2+ throughout and femoral pulses present Skin Skin Narrative: ichthyosis present Neuro oriented x3 and CN's II-XII intact bilaterally Psych Appearance: grossly normal and appropriate Assessment & Plan Assessment/Plan (1) Cardiac LV ejection fraction 10-20%: PLAN: Patient has a left ventricular ejection fraction of 10% plus minus. The etiology of above is nonischemic as the cardiac catheterization today did not demonstrate any obstructive coronary disease. Will recommend * Continue Lasix intravenously and then switch to p.o. will add spironolactone * Start SGLT2 inhibitor * Continue beta-shaniqua and in light of the atrial fibrillation will increase metoprolol to 50 mg twice a day. After rate is controlled can switch to carvedilol. * Add lisinopril 2.5 mg twice a day and if patient tolerates will switch to Entresto (2) Atrial fibrillation with RVR: PLAN: Patient has atrial fibrillation with rapid ventricular response rate: And will do suggest that we increase metoprolol to 75 mg twice a day Will add 1 dose of digoxin Start anticoagulation with Eliquis this evening. (3) Acute systolic CHF (congestive heart failure): PLAN: He does have acute on chronic congestive heart failure and the plan to be to continue currentmedical therapy as noted above. Will continue guideline directed medical therapy. After the patient is discharged from the hospitalshe will followed up with our office within a week. 03/24/25 1056 Cosigner Signature (if applicable): CC: ~ Signed [facility]05-04-2025 Progress note Author Krissy Freitas [facility] Note Date/Time March 23, 2025 3:23pm [facility] Medical Records Department [address] [place] [address] Progress Note - Cardiology 03/23/25 1514 MR#: [id number] Acct: [id number] Name: KELVIN HERNANDEZ Jr. Rep #:[id number] : 1955 69 From: Krissy Freitas MD PCP: Dr. Lee Mathews MD Status :ADM IN Location: [facility] [id number] Subjective Subjective Family at bedside at time of evaluation Comfortable lying in bed Objective Data Vital Signs: Vital Signs Temp Pulse Resp BP Pulse Ox O2 Del Method 97.8 F 80 18 105/91 H 96 Room Air 03/23/25 10:00 03/23/25 13:10 03/23/25 13:10 03/23/25 10:12 03/23/25 10:00 03/23/25 14:05 Oxygen Delivery Method Room Air Weight: 255 lb 11.779 oz Body Mass Index (BMI) 38.9 Intake & Output: Intake and Output for Last 24 Hours 03/21/25 03/22/25 03/23/25 23:59 23:59 23:59 Intake Total 1476.12 / 1926.12 1410 / 1410 662.52 / 662.52 Output Total 3645 / 4195 2500 / 2500 925 / 925 Balance -2168.88 / -2268.88 -1090 / -1090 -262.48 / -262.48 Lab / Micro Data 03/23/25 03:26 03/23/25 03:26 Labs: Laboratory Results - last 24 hr 03/23/25 03:26: WBC 6.3, RBC 4.74, Hgb 15.0, Hct 44.9, MCV 94.7 H, MCH 31.6, MCHC 33.4, RDW Std Deviation 52.9 H, RDW Coeff of Hair 15.3 H, Plt Count 82 L, MPV 10.6, Immature Gran % (Auto) 0.500, Neut % (Auto) 58.6, Lymph % (Auto) 28.8,[place] % (Auto) 10.5 H, Eos % (Auto) 1.3, Baso % (Auto) 0.3, Absolute Neuts (auto)3.7, Absolute Lymphs (auto) 1.81, Nucleated RBC % 0, APTT 212.3 H*, Sodium 140, Potassium 3.0 L, Chloride 95 L, Carbon Dioxide 35.2 H, Anion Gap 9, BUN 25 H, Creatinine 1.17, Estim Creat Clear Calc 72.01, Est GFR (MDRD) Non-Af 67, BUN/Creatinine Ratio 21.2 H, Glucose 116 H, Calcium 8.0, Phosphorus 3.7, Magnesium 2.0 03/23/25 03:26: Magnesium 2.0, Total Bilirubin 1.02, Direct Bilirubin 0.57 H, AST 69 H, ALT 86 H, Alkaline Phosphatase 147 H, Total Protein 5.5 L, Albumin 3.4,Globulin 2.1 L 03/23/25 11:50: APTT 150.3 H* Cardiology Labs/Tests 03/23/25 03:26: WBC 6.3, RBC 4.74, Hgb 15.0, Hct 44.9, MCV 94.7 H, MCH 31.6, MCHC 33.4, Plt Count 82 L, MPV 10.6, Immature Gran % (Auto) 0.500, Neut % (Auto)58.6, Lymph % (Auto) 28.8, [place] % (Auto) 10.5 H, Eos % (Auto) 1.3, Baso % (Auto)0.3, Absolute Neuts (auto) 3.7, Nucleated RBC % 0, APTT 212.3 H*, Sodium 140, Potassium 3.0 L, Chloride 95 L, Carbon Dioxide 35.2 H, Anion Gap 9, BUN 25 H, Creatinine 1.17, Est GFR (MDRD) Non-Af 67, BUN/Creatinine Ratio 21.2 H, Glucose 116 H, Calcium 8.0, Phosphorus 3.7, Magnesium 2.0 03/23/25 03:26: Magnesium 2.0, Total Bilirubin 1.02, Direct Bilirubin 0.57 H 03/23/25 11:50: APTT 150.3 H* Rhythm: EKG: ECHO: Stress Test: Cardiac Cath: PCI: CT Surgery: Holter monitor: EPS: PPM: CXR: Chest CT Scan: Physical Exam Cardio Cardio Narrative: Review of cardiac telemetry showed A-fib with better controlled ventricular rate Cardiac exam S1-S2 regular Chest exam diminished air entry bilateral Examination lower extremity +2 lower extremity edema. Assessment & Plan Assessment/Plan (1) Dyspnea: (2) History of COPD: (3) Atrial fibrillation with RVR: (4) Acute systolic CHF (congestive heart failure): PLAN: Plan 69-year-old patient presented with symptoms shortness of breath palpitation weight gain, lower extremity swelling. Has acute systolic heart failure With echocardiogram showed EF in the range of 10-15% with severe global LV hypokinesia. Patient also has A-fib with RVR better controlled on the current treatment. On review of the monitoring engineer patient had nonsustained V. tach DAVID with improvement of renal function creatinine today is around 1.17. Had history of COPD. And abnormal LFTs secondary to acute systolic heart failure and congestive heart failure. Discussed in detail the plan and evaluated further with cardiac catheterization. Also patient will require review of his medication/guideline directed medical therapy LifeVest prior to discharge Further plan will be based on result of cardiac catheterization he was set up for tomorrow. Discussed cardiac care plan in detail with the patient family as well as the nursing staff Krissy Freitas MD,[facility] box maker wood 03/23/25 8526 <Electronically signed by Krissy Freitas MD> Cosigner Signature (if applicable): CC: ~ Signed [facility] Work Phone: 1(940) 210-546305-04-2025 Progress note [facility] Medical Records Department [address] [place] [address] Progress Note - Cardiology 03/23/25 1516 MR#: [id number] Acct: [id number] Name: KELVIN HERNANDEZ Jr. Rep #:[id number] : 1955 69 From: Krissy Freitas MD PCP: Dr. Lee Mathews MD Status :ADM IN Location: [place] [id number] Subjective Subjective Family at bedside at time of evaluation Comfortable lying in bed Objective Data Vital Signs: Vital Signs Temp Pulse Resp BP Pulse Ox O2 Del Method 97.8 F 80 18 105/91 H 96 Room Air 03/23/25 10:00 03/23/25 13:10 03/23/25 13:10 03/23/25 10:12 03/23/25 10:00 03/23/25 14:05 Oxygen Delivery Method Room Air Weight: 255 lb 11.779 oz Body Mass Index (BMI) 38.9 Intake & Output: Intake and Output for Last 24 Hours 03/21/25 03/22/25 03/23/25 23:59 23:59 23:59 Intake Total 1476.12 / 1926.12 1410 / 1410 662.52 / 662.52 Output Total 3645 / 4195 2500 / 2500 925 / 925 Balance -2168.88 / -2268.88 -1090 / -1090 -262.48 / -262.48 Lab / Micro Data 03/23/25 03:26 03/23/25 03:26 Labs: Laboratory Results - last 24 hr 03/23/25 03:26: WBC 6.3, RBC 4.74, Hgb 15.0, Hct 44.9, MCV 94.7 H, MCH 31.6, MCHC 33.4, RDW Std Deviation 52.9 H, RDW Coeff of Hair 15.3 H, Plt Count 82 L, MPV 10.6, Immature Gran % (Auto) 0.500, Neut% (Auto) 58.6, Lymph % (Auto) 28.8,[place] % (Auto) 10.5 H, Eos % (Auto) 1.3, Baso % (Auto) 0.3, Absolute Neuts (auto)3.7, Absolute Lymphs (auto) 1.81, Nucleated RBC % 0, APTT 212.3 H*, Sodium 140, Potassium 3.0 L, Chloride 95 L, Carbon Dioxide 35.2 H, Anion Gap 9, BUN 25 H, Creatinine 1.17, Estim Creat Clear Calc 72.01, Est GFR (MDRD) Non-Af 67, BUN/Creatinine Ratio 21.2 H, Glucose 116 H, Calcium 8.0, Phosphorus 3.7, Magnesium 2.0 03/23/25 03:26: Magnesium 2.0, Total Bilirubin 1.02, Direct Bilirubin 0.57 H, AST 69 H, ALT 86 H, Alkaline Phosphatase 147 H, Total Protein 5.5 L, Albumin 3.4,Globulin 2.1 L 03/23/25 11:50: APTT 150.3 H* Cardiology Labs/Tests 03/23/25 03:26: WBC 6.3, RBC 4.74, Hgb 15.0, Hct 44.9, MCV 94.7 H, MCH 31.6, MCHC 33.4, Plt Count 82 L, MPV 10.6, Immature Gran % (Auto) 0.500, Neut % (Auto)58.6, Lymph % (Auto) 28.8, [place] % (Auto) 10.5 H, Eos % (Auto) 1.3, Baso % (Auto)0.3, Absolute Neuts (auto) 3.7, Nucleated RBC % 0, APTT 212.3 H*, Sodium 140, Potassium 3.0 L, Chloride 95 L, Carbon Dioxide 35.2 H, Anion Gap 9, BUN 25 H, Creatinine 1.17, Est GFR (MDRD) Non-Af 67, BUN/Creatinine Ratio 21.2 H, Glucose 116 H, Calcium 8.0, Phosphorus 3.7, Magnesium 2.0 03/23/25 03:26: Magnesium 2.0, Total Bilirubin 1.02, Direct Bilirubin 0.57 H 03/23/25 11:50: APTT 150.3 H* Rhythm: EKG: ECHO: Stress Test: Cardiac Cath: PCI: CT Surgery: Holter monitor: EPS: PPM: CXR: Chest CT Scan: Physical Exam Cardio Cardio Narrative: Review of cardiac telemetry showed A-fib with better controlled ventricular rate Cardiac exam S1-S2 regular Chest exam diminished air entry bilateral Examination lower extremity +2 lower extremity edema. Assessment & Plan Assessment/Plan (1) Dyspnea: (2) History of COPD: (3) Atrial fibrillation with RVR: (4) Acute systolic CHF (congestive heart failure): PLAN: Plan 69-year-old patient presented with symptoms shortness of breath palpitation weight gain, lower extremity swelling. Has acute systolic heart failure With echocardiogram showed EF in the range of 10-15% with severe global LV hypokinesia. Patient also has A-fib with RVR better controlled on the current treatment. On review of the monitoring engineer patient had nonsustained V. tach DAVID with improvement of renal function creatinine today is around 1.17. Had history of COPD. And abnormal LFTs secondary to acute systolic heart failure and congestive heart failure. Discussed in detail the plan and evaluated further with cardiac catheterization. Also patient will require review of his medication/guideline directed medical therapy LifeVest prior to discharge Further plan will be based on result of cardiac catheterization he was set up for tomorrow. Discussed cardiac care plan in detail with the patient family as well as the nursing staff Krissy Freitas MD,[facility] box maker wood 03/23/25 1523 Cosigner Signature (if applicable): CC: ~ Signed [facility]05-04-2025 Progress note Author Stanley Craig [facility] Note Date/Time March 23, 2025 8:28am [facility] Medical Records Department [address] [place] [address] Progress Note - Hospitalist 03/23/25 0814 MR#: [id number] Acct: [id number] Name: KELVIN HERNANDEZ Rep #:[id number] : 1955 69 From: Stanley Craig MD PCP: Dr. Lee Mathews MD Status :ADM IN Location: [place] [address] Reason for Visit Reason for Visit: Diagnoses Nicotine dependence, unspecified, uncomplicated (03/20/25) Unspecified atrial fibrillation (03/20/25) Acute systolic (congestive) heart failure (03/20/25) Dyspnea, unspecified (03/20/25) Personal history of other diseases of the respiratory system (03/20/25) Subjective Subjective Case was discussed with cardiology on 03/22/2025 given patient's significant cardiomyopathy plan is for patient to undergo further evaluation with left heartcatheterization. Patient is on apixaban held started on heparin Objective Data Objective Data Vital Signs: Vital Signs Temp Pulse Resp BP Pulse Ox O2 Del Method 97.7 F L 85 16 114/81 H 92 Room Air 03/23/25 04:35 03/23/25 06:35 03/23/25 06:35 03/23/25 04:35 03/23/25 06:35 03/23/25 06:35 Oxygen Delivery Method Room Air Weight: 116 kg Body Mass Index (BMI) 38.9 Intake & Output: Intake and Output for Last 24 Hours 03/21/25 03/22/25 03/23/25 23:59 23:59 23:59 Intake Total 1476.12 / 1926.12 1410 / 1410 338.67 / 338.67 Output Total 3645 / 4195 2500 / 2500 125 / 125 Balance -2168.88 / -2268.88 -1090 / -1090 213.67 / 213.67 Lab / Micro Data 03/23/25 03:26 03/23/25 03:26 Labs: Laboratory Results - last 24 hr 03/22/25 09:02: Troponin T Hi Sens 4Hr 40 H 03/22/25 11:53: PT 19.1 H, INR 1.6, APTT 29.9 03/23/25 03:26: WBC 6.3, RBC 4.74, Hgb 15.0, Hct 44.9, MCV 94.7 H, MCH 31.6, MCHC 33.4, RDW Std Deviation 52.9 H, RDW Coeff of Hair 15.3 H, Plt Count 82 L, MPV 10.6, Immature Gran % (Auto) 0.500, Neut % (Auto) 58.6, Lymph % (Auto) 28.8,[place] % (Auto) 10.5 H, Eos % (Auto) 1.3, Baso % (Auto) 0.3, Absolute Neuts (auto)3.7, Absolute Lymphs (auto) 1.81, Nucleated RBC % 0, APTT 212.3 H*, Sodium 140, Potassium 3.0 L, Chloride 95 L, Carbon Dioxide 35.2 H, Anion Gap 9, BUN 25 H, Creatinine 1.17, Estim Creat Clear Calc 72.01, Est GFR (MDRD) Non-Af 67, BUN/Creatinine Ratio 21.2 H, Glucose 116 H, Calcium 8.0, Magnesium 2.0, Total Bilirubin 1.02, Direct Bilirubin 0.57 H, AST 69 H, ALT 86 H, Alkaline Phosphatase 147 H, Total Protein 5.5 L, Albumin 3.4, Globulin 2.1 L Physical Exam Narrative GENERAL: cooperative HEENT: Atraumatic; normocephalic EYES; Anicteric, Normal Conjunctiva NECK; supple, normal thyroid, RESPIRATORY: Diminished to auscultation CARDIOVASCULAR: Regular S1 S2, GI: soft, normoactive bowel sounds, : No Renal angle tenderness; EXTREMITIES: Bipedal edema MUSCULOSKELETAL: no muscle wasting NEURO: Awake; no lateralizing signs. SKIN: No Rash PSYCH; Flat affect Assessment & Plan Assessment/Plan (1) Acute systolic CHF (congestive heart failure): (2) Atrial fibrillation with RVR: PLAN: Plan Patient is a 69-year-old gentleman who was sent to the ED by the primary care physician on account of increasing shortness of breath with minimal activity as well as generalized swelling. An assessment of acute congestive heart failure was made admitted to monitored bed for further management 1. Acute congestive heart failure with reduced ejection from ? Admitted to monitored bed manage with strict input and output, daily weight,fluid restriction, low-sodium diet as well as diuretic therapy with furosemide drip. Echo ordered for EF assessment. Consult was placed to cardiology ? Patient has responded to diuretic therapy. Patient weight on admission was 121 currently down to 117 kg 2D echo obtained on 03/21/2025 did show The estimatedejection fraction is 10-15 %. Moderate concentric left ventricular hypertrophy. Moderate global right ventricular systolic dysfunction. Moderately dilated rightventricle. The left atrium is mildly enlarged. The right atrium is mildly enlarged. Mild (1+) mitral valve insufficiency. Mild (1+) eccentric tricuspid valve insufficiency. Consult was placed to cardiology patient seen by Dr. Freitas his notes and recommendations reviewed ? 03/23/2025; Case was discussed with cardiology given patient's significant cardiomyopathy plan is for patient to undergo left heart catheterization to ruleout coronary artery disease. Did decrease patient furosemide dose after discussion with cardiology. 2. Paroxysmal atrial fibrillation ? Patient presented with RVR. Patient was started on Cardizem drip admitted to monitored bed. Cardizem drip being titrated to keep heart rate less than 100 ? 03/23/2025; patient is on apixaban held subsequently started on heparin 3. Acute kidney injury ? Creatinine from 03/03/2025 was 1.06 creatinine on admission was 1.50. This is suspected to be secondary to hypoperfusion from CHF do expect improvement in kidney function with with diuresis. Repeat BMP ordered in a.m. for monitoring ? 03/22/2025; patient creatinine down to 1.18 ? 03/23/2025; creatinine stable at 1.17 4. Runs of nonsustained VT ? Attributed to patient severe cardiomyopathy. Plan is to continue with telemetry monitoring 5. Hypokalemia ? Corrected for protocol. Also recheck magnesium as well as phosphorus levels 6. Essential hypertension Patient is on metoprolol did continue lisinopril was held given patient worsening kidney function 7. COPD ? Currently not in exacerbation aerosol treatment as needed 8. Abnormal LFTs ? Suspected to be secondary to hepatic congestion from CHF repeated LFTs in a.m.for further management ? 03/22/2025; patient LFTs still remain elevated. 9. Elevated troponin Suspected to be secondary to demand ischemia from congestive heart failure. Patient troponins have remained flat. Echo has been ordered for LVEF assessment 10. Class III obesity with BMI of 40.6 ? Complicating care weight loss advised 11. Tobacco dependence ? Counseled on cessation, offered nicotine patch for tobacco cravings 12. DVT prophylaxis ? Patient is on systemic anticoagulation Charges/Coding Visit Charges Inpatient E&M: 06974 Subs Hosp L3 03/23/25 0828 <Electronically signed by Stanley Craig MD> Cosigner Signature (if applicable): CC: ~ Signed [facility] Work Phone: 1([phone]) 837-761105-04-2025 Progress note [facility] Medical Records Department [address] [place] [address] Progress Note - Hospitalist 03/23/25 0814 MR#: [id number] Acct: [id number] Name: KELVIN HERNANDEZ Rep #:[id number] : 1955 69 From: Stanley Craig MD PCP: Dr. Lee Mathews MD Status :ADM IN Location: [place] [address] Reason for Visit Reason for Visit: Diagnoses Nicotine dependence, unspecified, uncomplicated (03/20/25) Unspecified atrial fibrillation (03/20/25) Acute systolic (congestive) heart failure (03/20/25) Dyspnea, unspecified (03/20/25) Personal history of other diseases of the respiratory system (03/20/25) Subjective Subjective Case was discussed with cardiology on 03/22/2025 given patient's significant cardiomyopathy plan is for patient to undergo further evaluation with left heartcatheterization. Patient is on apixaban heldstarted on heparin Objective Data Objective Data Vital Signs: Vital Signs Temp Pulse Resp BP Pulse Ox O2 Del Method 97.7 F L 85 16 114/81 H 92 Room Air 03/23/25 04:35 03/23/25 06:35 03/23/25 06:35 03/23/25 04:35 03/23/25 06:35 03/23/25 06:35 Oxygen Delivery Method Room Air Weight: 116 kg Body Mass Index (BMI) 38.9 Intake & Output: Intake and Output for Last 24 Hours 03/21/25 03/22/25 03/23/25 23:59 23:59 23:59 Intake Total 1476.12 / 1926.12 1410 / 1410 338.67 / 338.67 Output Total 3645 / 4195 2500 / 2500 125 / 125 Balance -2168.88 / -2268.88 -1090 / -1090 213.67 / 213.67 Lab / Micro Data 03/23/25 03:26 03/23/25 03:26 Labs: Laboratory Results - last 24 hr 03/22/25 09:02: Troponin T Hi Sens 4Hr 40 H 03/22/25 11:53: PT 19.1 H, INR 1.6, APTT 29.9 03/23/25 03:26: WBC 6.3, RBC 4.74, Hgb 15.0, Hct 44.9, MCV 94.7 H, MCH 31.6, MCHC 33.4, RDW Std Deviation 52.9 H, RDW Coeff of Hair 15.3 H, Plt Count 82 L, MPV 10.6, Immature Gran % (Auto) 0.500, Neut% (Auto) 58.6, Lymph % (Auto) 28.8,[place] % (Auto) 10.5 H, Eos % (Auto) 1.3, Baso % (Auto) 0.3, Absolute Neuts (auto)3.7, Absolute Lymphs (auto) 1.81, Nucleated RBC % 0, APTT 212.3 H*, Sodium 140, Potassium 3.0 L, Chloride 95 L, Carbon Dioxide 35.2 H, Anion Gap 9, BUN 25 H, Creatinine 1.17, Estim Creat Clear Calc 72.01, Est GFR (MDRD) Non-Af 67, BUN/Creatinine Ratio 21.2 H, Glucose 116 H, Calcium 8.0, Magnesium 2.0, Total Bilirubin 1.02, Direct Bilirubin 0.57 H, AST 69 H, ALT 86 H, Alkaline Phosph atase 147 H, Total Protein 5.5 L, Albumin 3.4, Globulin 2.1 L Physical Exam Narrative GENERAL: cooperative HEENT: Atraumatic; normocephalic EYES; Anicteric, Normal Conjunctiva NECK; supple, normal thyroid, RESPIRATORY: Diminished to auscultation CARDIOVASCULAR: Regular S1 S2, GI: soft, normoactive bowel sounds, : No Renal angle tenderness; EXTREMITIES: Bipedal edema MUSCULOSKELETAL: no muscle wasting NEURO: Awake; no lateralizing signs. SKIN: No Rash PSYCH; Flat affect Assessment & Plan Assessment/Plan (1) Acute systolic CHF (congestive heart failure): (2) Atrial fibrillation with RVR: PLAN: Plan Patient is a 69-year-old gentleman who was sent to the ED by the primary care physician on account of increasing shortness of breath with minimal activity as well as generalized swelling. An assessment of acute congestive heart failure was made admitted to monitored bed for further management 1. Acute congestive heart failure with reduced ejection from ? Admitted to monitored bed manage with strict input and output, daily weight,fluid restriction, low-sodium diet as well as diuretic therapy with furosemide drip. Echo ordered for EF assessment. Consult was placed to cardiology ? Patient has responded to diuretic therapy. Patient weight on admission was 121 currently down to 117 kg 2D echo obtained on 03/21/2025 did show The estimatedejection fraction is 10-15 %. Moderate concentric left ventricular hypertrophy. Moderate global right ventricular systolic dysfunction. Moderately dilated rightventricle. The left atrium is mildly enlarged. The right atrium is mildly enlarged. Mild (1+) mitral valve insufficiency. Mild (1+) eccentric tricuspid valve insufficiency. Consult was placed to cardiology patient seen by Dr. Freitas his notes and recommendations reviewed ? 03/23/2025; Case was discussed with cardiology given patient's significant cardiomyopathy plan is for patient to undergo left heart catheterization to ruleout coronary artery disease. Did decrease patient furosemide dose after discussion with cardiology. 2. Paroxysmal atrial fibrillation ? Patient presented with RVR. Patient was started on Cardizem drip admitted to monitored bed. Cardizem drip being titrated to keep heart rate less than 100 ? 03/23/2025; patient is on apixaban held subsequently started on heparin 3. Acute kidney injury ? Creatinine from 03/03/2025 was 1.06 creatinine on admission was 1.50. This is suspected to be secondary to hypoperfusion from CHF do expect improvement in kidney function with with diuresis. Repeat BMP ordered in a.m. for monitoring ? 03/22/2025; patient creatinine down to 1.18 ? 03/23/2025; creatinine stable at 1.17 4. Runs of nonsustained VT ? Attributed to patient severe cardiomyopathy. Plan is to continue with telemetry monitoring 5. Hypokalemia ? Corrected for protocol. Also recheck magnesium as well as phosphorus levels 6. Essential hypertension Patient is on metoprolol did continue lisinopril was held given patient worsening kidney function 7. COPD ? Currently not in exacerbation aerosol treatment as needed 8. Abnormal LFTs ? Suspected to be secondary to hepatic congestion from CHF repeated LFTs in a.m.for further management ? 03/22/2025; patient LFTs still remain elevated. 9. Elevated troponin Suspected to be secondary to demand ischemia from congestive heart failure. Patient troponins have remained flat. Echo has been ordered for LVEF assessment 10. Class III obesity with BMI of 40.6 ? Complicating care weight loss advised 11. Tobacco dependence ? Counseled on cessation, offered nicotine patch for tobacco cravings 12. DVT prophylaxis ? Patient is on systemic anticoagulation Charges/Coding Visit Charges Inpatient E&M: 25887 Subs Hosp L3 03/23/25 0828 Cosigner Signature (if applicable): CC: ~ Signed [facility]05-03-2025 Progress note Author Krissy rFeitas [facility] Note Date/Time March 22, 2025 4:39pm [facility] Medical Records Department [address] [place] [address] Progress Note - Cardiology 03/22/25 1620 MR#: [id number] Acct: [id number] Name: KELVIN HERNANDEZ JrSavita Rep #:[id number] : 1955 69 From: Krissy Freitas MD PCP: Dr. Lee Mathews MD Status :ADM IN Location: [place] [id number] Subjective Subjective Patient seen and evaluated today at bedside along with the nursing staff Family were at bedside. Shortness of breath is improving. No chest pain reported Improvement in lower extremity swelling Objective Data Vital Signs: Vital Signs Temp Pulse Resp BP Pulse Ox O2 Del Method 98.1 F 72 18 105/87 H 95 Room Air 03/22/25 14:30 03/22/25 14:30 03/22/25 14:30 03/22/25 14:30 03/22/25 14:30 03/22/25 14:30 Oxygen Delivery Method Room Air Weight: 258 lb 6.108 oz Body Mass Index (BMI) 39.2 Intake & Output: Intake and Output for Last 24 Hours 03/20/25 03/21/25 03/22/25 23:59 23:59 23:59 Intake Total 16.50 / 66.50 1476.12 / 1926.12 690 / 690 Output Total 3645 / 4195 1875 / 1875 Balance 16.50 / -233.50 -2168.88 / -2268.88 -1185 / -1185 Lab / Micro Data 03/22/25 05:20 03/22/25 05:20 Labs: Laboratory Results - last 24 hr 03/22/25 05:20: WBC 7.8, RBC 4.95, Hgb 16.0, Hct 46.4, MCV 93.7, MCH 32.3 H, MCHC 34.5, RDW Std Deviation 52.3 H, RDW Coeff of Hair 15.4 H, Plt Count 86 L, MPV 11.3, Immature Gran % (Auto) 0.400, Neut % (Auto) 53.3, Lymph % (Auto) 35.9,[place] % (Auto) 9.2, Eos % (Auto) 0.9, Baso % (Auto) 0.3, Absolute Neuts (auto) 4.2, Absolute Lymphs (auto) 2.80, Nucleated RBC % 0, Sodium 137, Potassium 3.5, Chloride 94 L, Carbon Dioxide 30.7, Anion Gap 12, BUN 25 H, Creatinine 1.18, Estim Creat Clear Calc 71.40, Est GFR (MDRD) Non-Af 66, BUN/Creatinine Ratio 20.9 H, Glucose 95, Calcium 8.0, Phosphorus 3.6, Magnesium 2.0, Total Bilirubin 1.36 H, Direct Bilirubin 0.68 H, AST 92 H, ALT 108 H, Alkaline Phosphatase 166 H, Troponin T High Sens 43 H D, NT pro BNP II 6426 H, Total Protein 5.9, Albumin 3.4, Globulin 2.4 03/22/25 07:15: Troponin T Hi Sens 2 Hr 42 H 03/22/25 09:02: Troponin T Hi Sens 4Hr 40 H 03/22/25 11:53: PT 19.1 H, INR 1.6, APTT 29.9 Cardiology Labs/Tests 03/22/25 05:20: WBC 7.8, RBC 4.95, Hgb 16.0, Hct 46.4, MCV 93.7, MCH 32.3 H, MCHC 34.5, Plt Count 86 L, MPV 11.3, Immature Gran % (Auto) 0.400, Neut % (Auto)53.3, Lymph % (Auto) 35.9, [place] % (Auto) 9.2, Eos % (Auto) 0.9, Baso % (Auto) 0.3, Absolute Neuts (auto) 4.2, Nucleated RBC % 0, Sodium 137, Potassium 3.5, Chloride 94 L, Carbon Dioxide 30.7, Anion Gap 12, BUN 25 H, Creatinine 1.18, Est GFR (MDRD) Non-Af 66, BUN/Creatinine Ratio 20.9 H, Glucose 95, Calcium 8.0, Phosphorus 3.6, Magnesium 2.0, Total Bilirubin 1.36 H, Direct Bilirubin 0.68 H 03/22/25 11:53: PT 19.1 H, INR 1.6, APTT 29.9 Rhythm: EKG: ECHO: Stress Test: Cardiac Cath: PCI: CT Surgery: Holter monitor: EPS: PPM: CXR: Chest CT Scan: Physical Exam Cardio Cardio Narrative: Review of monitoring engineer showed episodes of nonsustained V. tach With frequent PVCs A-fib with better controlled ventricular rate Cardiac exam S1-S2 regular Chest exam mildly diminished air entry bilateral with bilateral inspiratory rales Examination lower extremities +2 lower extremity edema Assessment & Plan Assessment/Plan (1) History of COPD: (2) Atrial fibrillation with RVR: (3) Acute systolic CHF (congestive heart failure): PLAN: 69-year-old patient admitted with symptoms of shortness of breath with palpitation Moderate concentric left ventricular hypertrophy Moderate global RV systolic dysfunction Weight gain with bilateral lower extremity swelling With a diagnosis of acute systolic heart failure HFrEF With a significantly abnormal echocardiogram Showing EF in the range of 10-15% moderate concentric left ventricular hypertrophy Patient started on treatment with lisinopril beta-shaniqua metoprolol. Apixaban is on hold and will start on heparin IV. In addition to Lasix and CHF protocol with restriction of fluid intake. Cardiac care plan; Based on his clinical presentation and severe LV systolic dysfunction Patient scheduled for cardiac catheterization on Monday. To assess for ischemic cardiomyopathy and assess coronary artery atherosclerosis Will continue to monitor and follow-up clinically. Patient currently on. Cardiac care plan will include monitoring electrolytes adjustment of guideline directed medical therapy Further recommendation will be based on the cardiac catheterization and patient will require LifeVest prior to discharge Krissy Freitas MD,[facility] box maker wood 03/22/25 2754 <Electronically signed by Krissy Freitas MD> Cosigner Signature (if applicable): CC: ~ Signed [facility] Work Phone: 1([phone] 843-495805-03-2025 Progress note [facility] Medical Records Department [address] [place] [address] Progress Note - Cardiology 03/22/25 1620 MR#: [id number] Acct: [id number] Name: MARYKELVIN Rep #:[id number] : 1955 69 From: Krissy Freitas MD PCP: Dr. Lee Mathews MD Status :ADM IN Location: [place] [address] Subjective Subjective Patient seen and evaluated today at bedside along with the nursing staff Family were at bedside. Shortness of breath is improving. No chest pain reported Improvement in lower extremity swelling Objective Data Vital Signs: Vital Signs Temp Pulse Resp BP Pulse Ox O2 Del Method 98.1 F 72 18 105/87 H 95 Room Air 03/22/25 14:30 03/22/25 14:30 03/22/25 14:30 03/22/25 14:30 03/22/25 14:30 03/22/25 14:30 Oxygen Delivery Method Room Air Weight: 258 lb 6.108 oz Body Mass Index (BMI) 39.2 Intake & Output: Intake and Output for Last 24 Hours 03/20/25 03/21/25 03/22/25 23:59 23:59 23:59 Intake Total 16.50 / 66.50 1476.12 / 1926.12 690 / 690 Output Total 3645 / 4195 1875 / 1875 Balance 16.50 / -233.50 -2168.88 / -2268.88 -1185 / -1185 Lab / Micro Data 03/22/25 05:20 03/22/25 05:20 Labs: Laboratory Results - last 24 hr 03/22/25 05:20: WBC 7.8, RBC 4.95, Hgb 16.0, Hct 46.4, MCV 93.7, MCH 32.3 H, MCHC 34.5, RDW Std Deviation 52.3 H, RDW Coeff of Hair 15.4 H, Plt Count 86 L, MPV 11.3, Immature Gran % (Auto) 0.400, Neut% (Auto) 53.3, Lymph % (Auto) 35.9,[place] % (Auto) 9.2, Eos % (Auto) 0.9, Baso % (Auto) 0.3, AbsoluteNeuts (auto) 4.2, Absolute Lymphs (auto) 2.80, Nucleated RBC % 0, Sodium 137, Potassium 3.5, Chloride 94 L, Carbon Dioxide 30.7, Anion Gap 12, BUN 25 H, Creatinine 1.18, Estim Creat Clear Calc 71.40,Est GFR (MDRD) Non-Af 66, BUN/Creatinine Ratio 20.9 H, Glucose 95, Calcium 8.0, Phosphorus 3.6, Magnesium 2.0, Total Bilirubin 1.36 H, Direct Bilirubin 0.68 H, AST 92 H, ALT 108 H, Alkaline Phosphatase 166 H, Troponin T High Sens 43 H D, NT pro BNP II 6426 H, Total Protein 5.9, Albumin 3.4, Globulin 2.4 03/22/25 07:15: Troponin T Hi Sens 2 Hr 42 H 03/22/25 09:02: Troponin T Hi Sens 4Hr 40 H 03/22/25 11:53: PT 19.1 H, INR 1.6, APTT 29.9 Cardiology Labs/Tests 03/22/25 05:20: WBC 7.8, RBC 4.95, Hgb 16.0, Hct 46.4, MCV 93.7, MCH 32.3 H, MCHC 34.5, Plt Count 86 L, MPV 11.3, Immature Gran % (Auto) 0.400, Neut % (Auto)53.3, Lymph % (Auto) 35.9, [place] % (Auto) 9.2, Eos % (Auto) 0.9, Baso % (Auto) 0.3, Absolute Neuts (auto) 4.2, Nucleated RBC % 0, Sodium 137, Potassium 3.5, Chloride 94 L, Carbon Dioxide 30.7, Anion Gap 12, BUN 25 H, Creatinine 1.18, Est GFR (MDRD) Non-Af 66, BUN/Creatinine Ratio 20.9 H, Glucose 95, Calcium 8.0, Phosphorus 3.6, Magnesium 2.0, Total Bilirubin 1.36 H, Direct Bilirubin 0.68 H 03/22/25 11:53: PT 19.1 H, INR 1.6, APTT 29.9 Rhythm: EKG: ECHO: Stress Test: Cardiac Cath: PCI: CT Surgery: Holter monitor: EPS: PPM: CXR: Chest CT Scan: Physical Exam Cardio Cardio Narrative: Review of monitoring engineer showed episodes of nonsustained V. tach With frequent PVCs A-fib with better controlled ventricular rate Cardiac exam S1-S2 regular Chest exam mildly diminished air entry bilateral with bilateral inspiratory rales Examination lower extremities +2 lower extremity edema Assessment & Plan Assessment/Plan (1) History of COPD: (2) Atrial fibrillation with RVR: (3) Acute systolic CHF (congestive heart failure): PLAN: 69-year-old patient admitted with symptoms of shortness of breath with palpitation Moderate concentric left ventricular hypertrophy Moderate global RV systolic dysfunction Weight gain with bilateral lower extremity swelling With a diagnosis of acute systolic heart failure HFrEF With a significantly abnormal echocardiogram Showing EF in the range of 10-15% moderate concentric left ventricular hypertrophy Patient started on treatment with lisinopril beta-shaniqua metoprolol. Apixaban is on hold and will start on heparin IV. In addition to Lasix and CHF protocol with restriction of fluid intake. Cardiac care plan; Based on his clinical presentation and severe LV systolic dysfunction Patient scheduled for cardiac catheterization on Monday. To assess for ischemic cardiomyopathy and assess coronary artery atherosclerosis Will continue to monitor and follow-up clinically. Patient currently on. Cardiac care plan will include monitoring electrolytes adjustment of guideline directed medical therapy Further recommendation will be based on the cardiac catheterization and patient will require LifeVest prior to discharge Krissy Freitas MD,[facility] box maker wood 03/22/25 1639 Cosigner Signature (if applicable): CC: ~ Signed [facility]05-03-2025 Progress note Author Stanley Craig [facility] Note Date/Time March 22, 2025 9:34am [facility] Medical Records Department [address] [place] [address] Progress Note - Hospitalist 03/22/25 0912 MR#: [id number] Acct: [id number] Name: KELVIN HERNANDEZ Jr. Rep #:[id number] : 1955 69 From: Stanley Craig MD PCP: Dr. Lee Mathews MD Status :ADM IN Location: [place] [id number] Reason for Visit Reason for Visit: Diagnoses Nicotine dependence, unspecified, uncomplicated (03/20/25) Unspecified atrial fibrillation (03/20/25) Acute systolic (congestive) heart failure (03/20/25) Dyspnea, unspecified (03/20/25) Personal history of other diseases of the respiratory system (03/20/25) Objective Data Objective Data Vital Signs: Vital Signs Temp Pulse Resp BP Pulse Ox O2 Del Method 98.1 F 110 H 20 H 110/76 92 Room Air 03/22/25 02:30 03/22/25 07:06 03/22/25 07:06 03/22/25 02:30 03/22/25 07:06 03/22/25 08:05 Oxygen Delivery Method Room Air Weight: 117.2 kg Body Mass Index (BMI) 39.2 Intake & Output: Intake and Output for Last 24 Hours 03/20/25 03/21/25 03/22/25 23:59 23:59 23:59 Intake Total 16.50 / 66.50 1476.12 / 1926.12 450 / 450 Output Total 3645 / 4195 900 / 900 Balance 16.50 / -233.50 -2168.88 / -2268.88 -450 / -450 Lab / Micro Data 03/22/25 05:20 03/22/25 05:20 Labs: Laboratory Results - last 24 hr 03/22/25 05:20: WBC 7.8, RBC 4.95, Hgb 16.0, Hct 46.4, MCV 93.7, MCH 32.3 H, MCHC 34.5, RDW Std Deviation 52.3 H, RDW Coeff of Hair 15.4 H, Plt Count 86 L, MPV 11.3, Immature Gran % (Auto) 0.400, Neut % (Auto) 53.3, Lymph % (Auto) 35.9,[place] % (Auto) 9.2, Eos % (Auto) 0.9, Baso % (Auto) 0.3, Absolute Neuts (auto) 4.2, Absolute Lymphs (auto) 2.80, Nucleated RBC % 0, Sodium 137, Potassium 3.5, Chloride 94 L, Carbon Dioxide 30.7, Anion Gap 12, BUN 25 H, Creatinine 1.18, Estim Creat Clear Calc 71.40, Est GFR (MDRD) Non-Af 66, BUN/Creatinine Ratio 20.9 H, Glucose 95, Calcium 8.0, Phosphorus 3.6, Magnesium 2.0, Total Bilirubin 1.36 H, Direct Bilirubin 0.68 H, AST 92 H, ALT 108 H, Alkaline Phosphatase 166 H, Troponin T High Sens 43 H D, NT pro BNP II 6426 H, Total Protein 5.9, Albumin 3.4, Globulin 2.4 03/22/25 07:15: Troponin T Hi Sens 2 Hr 42 H Radiography Diagnostic Testing: Radiology Impression Echocardiogram 03/21/25 05:55 Interpretation Summary The estimated ejection fraction is 10-15 %. Moderate concentric left ventricular hypertrophy. Moderate global right ventricular systolic dysfunction. Moderately dilated right ventricle. The left atrium is mildly enlarged. The right atrium is mildly enlarged. Mild (1+) mitral valve insufficiency. Mild (1+) eccentric tricuspid valve insufficiency. Ordering Physician: Chrissy^Sophia^Da^^ Referring Physician: Lee Mathews MD Performed By: Reema Shepard RCS Physical Exam Narrative GENERAL: cooperative HEENT: Atraumatic; normocephalic EYES; Anicteric, Normal Conjunctiva NECK; supple, normal thyroid, RESPIRATORY: Diminished to auscultation CARDIOVASCULAR: Regular S1 S2, GI: soft, normoactive bowel sounds, : No Renal angle tenderness; EXTREMITIES: Bipedal edema MUSCULOSKELETAL: no muscle wasting NEURO: Awake; no lateralizing signs. SKIN: No Rash PSYCH; Flat affect Assessment & Plan Assessment/Plan (1) Acute systolic CHF (congestive heart failure): (2) Atrial fibrillation with RVR: PLAN: Plan Patient is a 69-year-old gentleman who was sent to the ED by the primary care physician on account of increasing shortness of breath with minimal activity as well as generalized swelling. An assessment of acute congestive heart failure was made admitted to monitored bed for further management 1. Acute congestive heart failure with reduced ejection from ? Admitted to monitored bed manage with strict input and output, daily weight,fluid restriction, low-sodium diet as well as diuretic therapy with furosemide drip. Echo ordered for EF assessment. Consult was placed to cardiology ? Patient has responded to diuretic therapy. Patient weight on admission was 121 currently down to 117 kg 2D echo obtained on 03/21/2025 did show The estimatedejection fraction is 10-15 %. Moderate concentric left ventricular hypertrophy. Moderate global right ventricular systolic dysfunction. Moderately dilated rightventricle. The left atrium is mildly enlarged. The right atrium is mildly enlarged. Mild (1+) mitral valve insufficiency. Mild (1+) eccentric tricuspid valve insufficiency. Consult was placed to cardiology patient seen by Dr. Freitas his notes and recommendations reviewed 2. Paroxysmal atrial fibrillation ? Patient presented with RVR. Patient was started on Cardizem drip admitted to monitored bed. Cardizem drip being titrated to keep heart rate less than 100 3. Acute kidney injury ? Creatinine from 03/03/2025 was 1.06 creatinine on admission was 1.50. This is suspected to be secondary to hypoperfusion from CHF do expect improvement in kidney function with with diuresis. Repeat BMP ordered in a.m. for monitoring ? 03/22/2025; patient creatinine down to 1.18 4. Essential hypertension Patient is on metoprolol did continue lisinopril was held given patient worsening kidney function 5. Class III obesity with BMI of 40.6 ? Complicating care weight loss advised 6. Tobacco dependence ? Counseled on cessation, offered nicotine patch for tobacco cravings 7. COPD ? Currently not in exacerbation aerosol treatment as needed 8. Abnormal LFTs ? Suspected to be secondary to hepatic congestion from CHF repeated LFTs in a.m.for further management ? 03/22/2025; patient LFTs still remain elevated. 9. Elevated troponin Suspected to be secondary to demand ischemia from congestive heart failure. Patient troponins have remained flat. Echo has been ordered for LVEF assessment 10. DVT prophylaxis ? Patient is on systemic anticoagulation with apixaban Charges/Coding Visit Charges Inpatient E&M: 99768 Subs Hosp L2 03/22/25 0934 <Electronically signed by Stanley Craig MD> Cosigner Signature (if applicable): CC: ~ Signed [facility] Work Phone: 1(525) 303-344505-03-2025 Progress note [facility] Medical Records Department [address] [facility] [place] [address] Progress Note - Hospitalist 03/22/25911 MR#: [id number] Acct: [id number] Name: KELVIN HERNANDEZ Rep #:[id number] : 1955 69 From: Stanley Craig MD PCP: Dr. Lee Mathews MD Status :ADM IN Location: [place] [address] Reason for Visit Reason for Visit: Diagnoses Nicotine dependence, unspecified, uncomplicated (03/20/25) Unspecified atrial fibrillation (03/20/25) Acute systolic (congestive) heart failure (03/20/25) Dyspnea, unspecified (03/20/25) Personal history of other diseases of the respiratory system (03/20/25) Objective Data Objective Data Vital Signs: Vital Signs Temp Pulse Resp BP Pulse Ox O2 Del Method 98.1 F 110 H 20 H 110/76 92 Room Air 03/22/25 02:30 03/22/25 07:06 03/22/25 07:06 03/22/25 02:30 03/22/25 07:06 03/22/25 08:05 Oxygen Delivery Method Room Air Weight: 117.2 kg Body Mass Index (BMI) 39.2 Intake & Output: Intake and Output for Last 24 Hours 03/20/25 03/21/25 03/22/25 23:59 23:59 23:59 Intake Total 16.50 / 66.50 1476.12 / 1926.12 450 / 450 Output Total 3645 / 4195 900 / 900 Balance 16.50 / -233.50 -2168.88 / -2268.88 -450 / -450 Lab / Micro Data 03/22/25 05:20 03/22/25 05:20 Labs: Laboratory Results - last 24 hr 03/22/25 05:20: WBC 7.8, RBC 4.95, Hgb 16.0, Hct 46.4, MCV 93.7, MCH 32.3 H, MCHC 34.5, RDW Std Deviation 52.3 H, RDW Coeff of Hair 15.4 H, Plt Count 86 L, MPV 11.3, Immature Gran % (Auto) 0.400, Neut% (Auto) 53.3, Lymph % (Auto) 35.9,[place] % (Auto) 9.2, Eos % (Auto) 0.9, Baso % (Auto) 0.3, AbsoluteNeuts (auto) 4.2, Absolute Lymphs (auto) 2.80, Nucleated RBC % 0, Sodium 137, Potassium 3.5, Chloride 94 L, Carbon Dioxide 30.7, Anion Gap 12, BUN 25 H, Creatinine 1.18, Estim Creat Clear Calc 71.40,Est GFR (MDRD) Non-Af 66, BUN/Creatinine Ratio 20.9 H, Glucose 95, Calcium 8.0, Phosphorus 3.6, Magnesium 2.0, Total Bilirubin 1.36 H, Direct Bilirubin 0.68 H, AST 92 H, ALT 108 H, Alkaline Phosphatase 166 H, Troponin T High Sens 43 H D, NT pro BNP II 6426 H, Total Protein 5.9, Albumin 3.4, Globulin 2.4 03/22/25 07:15: Troponin T Hi Sens 2 Hr 42 H Radiography Diagnostic Testing: Radiology Impression Echocardiogram 03/21/25 05:55 Interpretation Summary The estimated ejection fraction is 10-15 %. Moderate concentric left ventricular hypertrophy. Moderate global right ventricular systolic dysfunction. Moderately dilated right ventricle. The left atrium is mildly enlarged. The right atrium is mildly enlarged. Mild (1+) mitral valve insufficiency. Mild (1+) eccentric tricuspid valve insufficiency. Ordering Physician: Alirio^Da^^ Referring Physician: Lee Mathews MD Performed By: Reema Shepard RCS Physical Exam Narrative GENERAL: cooperative HEENT: Atraumatic; normocephalic EYES; Anicteric, Normal Conjunctiva NECK; supple, normal thyroid, RESPIRATORY: Diminished to auscultation CARDIOVASCULAR: Regular S1 S2, GI: soft, normoactive bowel sounds, : No Renal angle tenderness; EXTREMITIES: Bipedal edema MUSCULOSKELETAL: no muscle wasting NEURO: Awake; no lateralizing signs. SKIN: No Rash PSYCH; Flat affect Assessment & Plan Assessment/Plan (1) Acute systolic CHF (congestive heart failure): (2) Atrial fibrillation with RVR: PLAN: Plan Patient is a 69-year-old gentleman who was sent to the ED by the primary care physician on account of increasing shortness of breath with minimal activity as well as generalized swelling. An assessment of acute congestive heart failure was made admitted to monitored bed for further management 1. Acute congestive heart failure with reduced ejection from ? Admitted to monitored bed manage with strict input and output, daily weight,fluid restriction, low-sodium diet as well as diuretic therapy with furosemide drip. Echo ordered for EF assessment. Consult was placed to cardiology ? Patient has responded to diuretic therapy. Patient weight on admission was 121 currently down to 117 kg 2D echo obtained on 03/21/2025 did show The estimatedejection fraction is 10-15 %. Moderate concentric left ventricular hypertrophy. Moderate global right ventricular systolic dysfunction. Moderately dilated rightventricle. The left atrium is mildly enlarged. The right atrium is mildly enlarged. Mild (1+) mitral valve insufficiency. Mild (1+) eccentric tricuspid valve insufficiency. Consult was placed to cardiology patient seen by Dr. Freitas his notes and recommendations reviewed 2. Paroxysmal atrial fibrillation ? Patient presented with RVR. Patient was started on Cardizem drip admitted to monitored bed. Cardizem drip being titrated to keep heart rate less than 100 3. Acute kidney injury ? Creatinine from 03/03/2025 was 1.06 creatinine on admission was 1.50. This is suspected to be secondary to hypoperfusion from CHF do expect improvement in kidney function with with diuresis. Repeat BMP ordered in a.m. for monitoring ? 03/22/2025; patient creatinine down to 1.18 4. Essential hypertension Patient is on metoprolol did continue lisinopril was held given patient worsening kidney function 5. Class III obesity with BMI of 40.6 ? Complicating care weight loss advised 6. Tobacco dependence ? Counseled on cessation, offered nicotine patch for tobacco cravings 7. COPD ? Currently not in exacerbation aerosol treatment as needed 8. Abnormal LFTs ? Suspected to be secondary to hepatic congestion from CHF repeated LFTs in a.m.for further management ? 03/22/2025; patient LFTs still remain elevated. 9. Elevated troponin Suspected to be secondary to demand ischemia from congestive heart failure. Patient troponins have remained flat. Echo has been ordered for LVEF assessment 10. DVT prophylaxis ? Patient is on systemic anticoagulation with apixaban Charges/Coding Visit Charges Inpatient E&M: 72419 Subs Hosp L2 03/22/25 3197 Cosigner Signature (if applicable): CC: ~ Signed [facility]05-02-2025 Consult note Author Krissy Freitas [facility] Note Date/Time March 21, 2025 1:16pm [facility] Medical Records Department [address] [place] [address] Consultation - Cardiology 03/21/25 1305 MR#: [id number] Acct: [id number] Name: KELVIN HERNANDEZ Jr. Rep #:[id number] : 1955 69 From: Krissy Freitas MD PCP: Dr. Lee Mathews MD Status :ADM IN Location: [place] [address] Assessment & Plan Assessment/Plan (1) Dyspnea: (2) History of COPD: (3) Acute systolic CHF (congestive heart failure): (4) Smoker: (5) Atrial fibrillation with RVR: PLAN: Plan 69-year-old patient with multiple medical comorbidities Patient morbidly obese with history of hypertension, hyperlipidemia, history of COPD Tobacco user Has a history of paroxysmal A-fib and heart failure reduced EF On this admission patient has symptoms of shortness of breath and weight gain. Seen by PCP who recommended to be seen and evaluated in the ED Admitted for management of the acute on chronic systolic heart failure as well management of the A-fib with RVR. Cardiac care plan; Patient has severe LV systolic dysfunction. Will start on CHF protocol with restriction of fluid intake With echocardiogram today revealed EF in the range of 10-15% with global LV hypokinesia. Has been on anticoagulation with Eliquis. Patient is on IV Lasix infusion. Will monitor electrolytes and renal function. Does not have any active chest pain In the on review of the monitoring engineer noted the patient had A-fib with RVR Has been on IV Cardizem which discontinued. Due to negative inotropic effect patient already had severe LV dysfunction with Will continue on on beta-shaniqua metoprolol in addition to low-dose digoxin. Will evaluate with BNP/trops. Will continue to monitor and follow-up clinically. Krissy Freitas MD,[facility] HPI Consult Data Date of Consult: 03/21/25 HPI Narrative Reason for Consultation: Acute systolic heart failure/A-fib with RVR HPI Narrative: KELVIN HERNANDEZ, is a 69 M who presents [facility] Medical History PAF (paroxysmal atrial fibrillation) CKD (chronic kidney disease), stage II Thrombocytopenia COPD (chronic obstructive pulmonary disease) Morbid obesity HLD (hyperlipidemia) HTN (hypertension) Tobacco use Anxiety and depression Cancer Home Medications ?Medication ?Instructions ?Recorded ?Last Taken ?Type lisinopril 20 mg tablet 20 mg PO QDAY hypertension 0 06/22/18 07/02/18 05:30 History albuterol sulfate 90 mcg/actuation 2 puff inhalation 4 X/DAY PRN PRN 03/20/25 Unknown History aerosol inhaler shortness of breath or wheez ing apixaban 5 mg tablet (Eliquis) 5 mg PO BID blood thinn er 03/20/25 Unknown History furosemide 20 mg tablet 20 mg PO BID PRN water pill, 03/20/25 Unknown History diuretic metoprolol tartrate 50 mg tablet 50 mg PO BID afib 12/14 Unknown History Allergy/AdvReac Type Severity Reaction Status Date / Time sertraline (From Zoloft) Allergy Other Verified 03/20/25 17:24 Family History Father History of blood clots Lupus Bowel disease Colon cancer Skin cancer CVA (cerebral vascular accident) Mother Hypertension Surgical History History of appendectomy Social History (Updated 03/20/25 @ 20:[address] Sophia Lowe MD) household members: spouse Smoking Status: Current some day smoker tobacco type: cigarettes alcohol intake: never substance use type: does not use additional social history: DOES USE ASPIRIN Physical Exam Cardio Cardio Narrative: Seen and evaluated at bedside along with the nursing staff Review of the monitoring engineer showed A-fib with RVR Cardiac exam S1-S2 is irregular Chest exam diminished air entry bilateral Examination lower extremity unremarkable lower extremity edema +3?+4 Risk Stratification Risk Stratification Applicable: No Objective Data Vital Signs: Vital Signs Temp Pulse Resp BP Pulse Ox O2 Del Method 97.8 F 77 18 91/81 H 95 Room Air 03/21/25 10:00 03/21/25 12:00 03/21/25 12:00 03/21/25 12:00 03/21/25 12:00 03/21/25 12:00 Oxygen Delivery Method Room Air Weight: 266 lb 15.677 oz Body Mass Index (BMI) 40.6 Intake & Output: Intake and Output for Last 24 Hours 03/19/25 03/20/25 03/21/25 23:59 23:59 23:59 Intake Total 16.50 / 66.50 1018.83 / 1018.83 Output Total 2845 / 2845 Balance 16.50 / -233.50 -1826.17 / -1826.17 Lab / Micro Data 03/21/25 04:51 03/21/25 04:51 Labs: Laboratory Results - last 24 hr 03/20/25 17:33: WBC 7.8, RBC 5.11, Hgb 16.1, Hct 48.7, MCV 95.3 H, MCH 31.5, MCHC 33.1, RDW Std Deviation 53.7 H, RDW Coeff of Hair 15.2 H, Plt Count 87 L, MPV 11.3, Immature Gran % (Auto) 0.400, Neut % (Auto) 58.4, Lymph % (Auto) 31.0,[place] % (Auto) 9.7, Eos % (Auto) 0.4, Baso % (Auto) 0.1, Absolute Neuts (auto) 4.5, Absolute Lymphs (auto) 2.40, Nucleated RBC % 0, Platelet Estimate MOD DEC, Polychromasia 1+, Anisocytosis 1+, Sodium 133, Potassium 4.3, Chloride 93 L, Carbon Dioxide 30.7, Anion Gap 10, BUN 25 H, Creatinine 1.50 H, Estim Creat Clear Calc 58.08, Est GFR (MDRD) Non-Af 49 L, BUN/Creatinine Ratio 16.9, [id number] H, Calcium 8.1, Magnesium 2.0 03/20/25 21:05: Troponin T High Sens 39 H 03/20/25 22:52: Troponin T Hi Sens 2 Hr 39 H 03/21/25 01:00: Troponin T Hi Sens 4Hr 37 H 03/21/25 04:51: WBC 7.1, RBC 4.77, Hgb 15.0, Hct 45.2, MCV 94.8 H, MCH 31.4, MCHC 33.2, RDW Std Deviation 52.9 H, RDW Coeff of Hair 15.4 H, Plt Count 83 L, MPV 11.1, Immature Gran % (Auto) 0.400, Neut % (Auto) 57.9, Lymph % (Auto) 31.8,[place] % (Auto) 9.5, Eos % (Auto) 0.3, Baso % (Auto) 0.1, Absolute Neuts (auto) 4.1, Absolute Lymphs (auto) 2.25, Nucleated RBC % 0, Sodium 135, Potassium 3.7, Chloride 94 L, Carbon Dioxide 29.4, Anion Gap 12, BUN 27 H, Creatinine 1.40 H, Estim Creat Clear Calc 61.25, Est GFR (MDRD) Non-Af 54 L, BUN/Creatinine Ratio 19.2, Glucose 92, Calcium 8.0, Phosphorus 3.9, Total Bilirubin 1.09, AST 135 H, ALT 128 H, Alkaline Phosphatase 178 H, Total Protein 5.8 L, Albumin 3.4, Globulin 2.4, Albumin/Globulin Ratio 1.4, Triglycerides 47, Cholesterol 96, LDL Cholesterol, Calc 44, VLDL Cholesterol 9, HDL Cholesterol 43, Cholesterol/HDL Ratio 2.25, TSH 1.460 Cardiology Labs/Tests 03/20/25 17:33: WBC 7.8, RBC 5.11, Hgb 16.1, Hct 48.7, MCV 95.3 H, MCH 31.5, MCHC 33.1, Plt Count 87 L, MPV 11.3, Immature Gran % (Auto) 0.400, Neut % (Auto)58.4, Lymph % (Auto) 31.0, [place] % (Auto) 9.7, Eos % (Auto) 0.4, Baso % (Auto) 0.1, Absolute Neuts (auto) 4.5, Nucleated RBC % 0, Sodium 133, Potassium 4.3, Chloride 93 L, Carbon Dioxide 30.7, Anion Gap 10, BUN 25 H, Creatinine 1.50 H, Est GFR (MDRD) Non-Af 49 L, BUN/Creatinine Ratio 16.9, Glucose 108 H, Calcium 8.1, Magnesium 2.0 03/21/25 04:51: WBC 7.1, RBC 4.77, Hgb 15.0, Hct 45.2, MCV 94.8 H, MCH 31.4, MCHC 33.2, Plt Count 83 L, MPV 11.1, Immature Gran % (Auto) 0.400, Neut % (Auto)57.9, Lymph % (Auto) 31.8, [place] % (Auto) 9.5, Eos % (Auto) 0.3, Baso % (Auto) 0.1, Absolute Neuts (auto) 4.1, Nucleated RBC % 0, Sodium 135, Potassium 3.7, Chloride 94 L, Carbon Dioxide 29.4, Anion Gap 12, BUN 27 H, Creatinine 1.40 H, Est GFR (MDRD) Non-Af 54 L, BUN/Creatinine Ratio 19.2, Glucose 92, Calcium 8.0, Phosphorus 3.9, Total Bilirubin 1.09, Triglycerides 47, Cholesterol 96, VLDL Cholesterol 9, HDL Cholesterol 43, Cholesterol/HDL Ratio 2.25 Rhythm: EKG: ECHO: Stress Test: Cardiac Cath: PCI: CT Surgery: Holter monitor: EPS: PPM: CXR: Chest CT Scan: Radiography Diagnostic Testing: Radiology Impression Chest X-Ray 03/20/25 18:13 IMPRESSION: Findings suggestive of vascular congestion. [facility] Echocardiogram 03/21/25 05:55 Interpretation Summary The estimated ejection fraction is 10-15 %. Moderate concentric left ventricular hypertrophy. Moderate global right ventricular systolic dysfunction. Moderately dilated right ventricle. The left atrium is mildly enlarged. The right atrium is mildly enlarged. Mild (1+) mitral valve insufficiency. Mild (1+) eccentric tricuspid valve insufficiency. Ordering Physician: Chrissy^Sophia^Da^^ Referring Physician: Lee Mathews MD Performed By: Reema Shepard RCS 03/21/25 1316 <Electronically signed by Krissy Freitas MD> Cosigner Signature (if applicable): CC: Dr. Lee Mathews MD~ Signed [facility] Work Phone: 1(824) 150-803405-02-2025 Consult note [facility] Medical Records Department [address] [place] [id number] Consultation - Cardiology 03/21/25 1305 MR#: [id number] Acct: [id number] Name: KELVIN HERNANDEZ Jr. Rep #:[id number] : 1955 69 From: Krissy Freitas MD PCP: Dr. Lee Mathews MD Status :ADM IN Location: [place] [id number] Assessment & Plan Assessment/Plan (1) Dyspnea: (2) History of COPD: (3) Acute systolic CHF (congestive heart failure): (4) Smoker: (5) Atrial fibrillation with RVR: PLAN: Plan 69-year-old patient with multiple medical comorbidities Patient morbidly obese with history of hypertension, hyperlipidemia, history of COPD Tobacco user Has a history of paroxysmal A-fib and heart failure reduced EF On this admission patient has symptoms of shortness of breath and weight gain. Seen by PCP who recommended to be seen and evaluated in the ED Admitted for management of the acute on chronic systolic heart failure as well management of the A-fib with RVR. Cardiac care plan; Patient has severe LV systolic dysfunction. Will start on CHF protocol with restriction of fluid intake With echocardiogram today revealed EF in the range of 10-15% with global LV hypokinesia. Has been on anticoagulation with Eliquis. Patient is on IV Lasix infusion. Will monitor electrolytes and renal function. Does not have any active chest pain In the on review of the monitoring engineer noted the patient had A-fib with RVR Has been on IV Cardizem which discontinued. Due to negative inotropic effect patient already had severe LV dysfunction with Will continue on on beta-shaniqua metoprolol in addition to low-dose digoxin. Will evaluate with BNP/trops. Will continue to monitor and follow-up clinically. Krissy Freitas MD,[facility] HPI Consult Data Date of Consult: 03/21/25 HPI Narrative Reason for Consultation: Acute systolic heart failure/A-fib with RVR HPI Narrative: KELVIN HERNANDEZ, is a 69 M who presents [facility] Medical History PAF (paroxysmal atrial fibrillation) CKD (chronic kidney disease), stage II Thrombocytopenia COPD (chronic obstructive pulmonary disease) Morbid obesity HLD (hyperlipidemia) HTN (hypertension) Tobacco use Anxiety and depression Cancer Home Medications ?Medication ?Instructions ?Recorded ?Last Taken ?Type lisinopril 20 mg tablet 20 mg PO QDAY hypertension 0 06/22/18 07/02/18 05:30 History albuterol sulfate 90 mcg/actuation 2 puff inhalation 4 X/DAY PRN PRN 03/20/25 Unknown History aerosol inhaler shortness of breath or wheez ing apixaban 5 mg tablet (Eliquis) 5 mg PO BID blood thinn er 03/20/25 Unknown History furosemide 20 mg tablet 20 mg PO BID PRN water pill, 03/20/25 Unknown History diuretic metoprolol tartrate 50 mg tablet 50 mg PO BID afib 12/14 Unknown History Allergy/AdvReac Type Severity Reaction Status Date / Time sertraline (From Zoloft) Allergy Other Verified 03/20/25 17:24 Family History Father History of blood clots Lupus Bowel disease Colon cancer Skin cancer CVA (cerebral vascular accident) Mother Hypertension Surgical History History of appendectomy Social History (Updated 03/20/25 @ 20:[address] Sophia Lowe MD) household members: spouse Smoking Status: Current some day smoker tobacco type: cigarettes alcohol intake: never substance use type: does not use additional social history: DOES USE ASPIRIN Physical Exam Cardio Cardio Narrative: Seen and evaluated at bedside along with the nursing staff Review of the monitoring engineer showed A-fib with RVR Cardiac exam S1-S2 is irregular Chest exam diminished air entry bilateral Examination lower extremity unremarkable lower extremity edema +3?+4 Risk Stratification Risk Stratification Applicable: No Objective Data Vital Signs: Vital Signs Temp Pulse Resp BP Pulse Ox O2 Del Method 97.8 F 77 18 91/81 H 95 Room Air 03/21/25 10:00 03/21/25 12:00 03/21/25 12:00 03/21/25 12:00 03/21/25 12:00 03/21/25 12:00 Oxygen Delivery Method Room Air Weight: 266 lb 15.677 oz Body Mass Index (BMI) 40.6 Intake & Output: Intake and Output for Last 24 Hours 03/19/25 03/20/25 03/21/25 23:59 23:59 23:59 Intake Total 16.50 / 66.50 1018.83 / 1018.83 Output Total 2845 / 2845 Balance 16.50 / -233.50 -1826.17 / -1826.17 Lab / Micro Data 03/21/25 04:51 03/21/25 04:51 Labs: Laboratory Results - last 24 hr 03/20/25 17:33: WBC 7.8, RBC 5.11, Hgb 16.1, Hct 48.7, MCV 95.3 H, MCH 31.5, MCHC 33.1, RDW Std Deviation 53.7 H, RDW Coeff of Hair 15.2 H, Plt Count 87 L, MPV 11.3, Immature Gran % (Auto) 0.400, Neut% (Auto) 58.4, Lymph % (Auto) 31.0,[place] % (Auto) 9.7, Eos % (Auto) 0.4, Baso % (Auto) 0.1, AbsoluteNeuts (auto) 4.5, Absolute Lymphs (auto) 2.40, Nucleated RBC % 0, Platelet Estimate MOD DEC, Polychromasia 1+, Anisocytosis 1+, Sodium 133, Potassium 4.3, Chloride 93 L, Carbon Dioxide 30.7, Anion Gap 10, BUN 25 H, Creatinine 1.50 H, Estim Creat Clear Calc 58.08, Est GFR (MDRD) Non-Af 49 L, BUN/Creatinine Ratio 16.9, [id number] H, Calcium 8.1, Magnesium 2.0 03/20/25 21:05: Troponin T High Sens 39 H 03/20/25 22:52: Troponin T Hi Sens 2 Hr 39 H 03/21/25 01:00: Troponin T Hi Sens 4Hr 37 H 03/21/25 04:51: WBC 7.1, RBC 4.77, Hgb 15.0, Hct 45.2, MCV 94.8 H, MCH 31.4, MCHC 33.2, RDW Std Deviation 52.9 H, RDW Coeff of Hair 15.4 H, Plt Count 83 L, MPV 11.1, Immature Gran % (Auto) 0.400, Neut% (Auto) 57.9, Lymph % (Auto) 31.8,[place] % (Auto) 9.5, Eos % (Auto) 0.3, Baso % (Auto) 0.1, AbsoluteNeuts (auto) 4.1, Absolute Lymphs (auto) 2.25, Nucleated RBC % 0, Sodium 135, Potassium 3.7, Chloride 94 L, Carbon Dioxide 29.4, Anion Gap 12, BUN 27 H, Creatinine 1.40 H, Estim Creat Clear Calc 61.25, Est GFR (MDRD) Non-Af 54 L, BUN/Creatinine Ratio 19.2, Glucose 92, Calcium 8.0, Phosphorus 3.9, Total Bilirubin 1.09, AST 135 H, ALT 128 H, Alkaline Phosphatase 178 H, Total Protein 5.8 L, Albumin 3.4, Globulin 2.4, Albumin/Globulin Ratio 1.4, Triglycerides 47, Cholesterol 96, LDL Cholesterol, Calc 44, VLDL Cholesterol 9, HDL Cholesterol 43, Cholesterol/HDL Ratio 2.25, TSH 1.460 Cardiology Labs/Tests 03/20/25 17:33: WBC 7.8, RBC 5.11, Hgb 16.1, Hct 48.7, MCV 95.3 H, MCH 31.5, MCHC 33.1, Plt Count 87 L, MPV 11.3, Immature Gran % (Auto) 0.400, Neut % (Auto)58.4, Lymph % (Auto) 31.0, [place] % (Auto) 9.7, Eos % (Auto) 0.4, Baso % (Auto) 0.1, Absolute Neuts (auto) 4.5, Nucleated RBC % 0, Sodium 133, Potassium 4.3, Chloride 93 L, Carbon Dioxide 30.7, Anion Gap 10, BUN 25 H, Creatinine 1.50 H, Est GFR(MDRD) Non-Af 49 L, BUN/Creatinine Ratio 16.9, Glucose 108 H, Calcium 8.1, Magnesium 2.0 03/21/25 04:51: WBC 7.1, RBC 4.77, Hgb 15.0, Hct 45.2, MCV 94.8 H, MCH 31.4, MCHC 33.2, Plt Count 83 L, MPV 11.1, Immature Gran % (Auto) 0.400, Neut % (Auto)57.9, Lymph % (Auto) 31.8, [place] % (Auto) 9.5, Eos % (Auto) 0.3, Baso % (Auto) 0.1, Absolute Neuts (auto) 4.1, Nucleated RBC % 0, Sodium 135, Potassium 3.7, Chloride 94 L, Carbon Dioxide 29.4, Anion Gap 12, BUN 27 H, Creatinine 1.40 H, Est GFR(MDRD) Non-Af 54 L, BUN/Creatinine Ratio 19.2, Glucose 92, Calcium 8.0, Phosphorus 3.9, Total Bilirubin 1.09, Triglycerides 47, Cholesterol 96, VLDL Cholesterol 9, HDL Cholesterol 43, Cholesterol/HDLRatio 2.25 Rhythm: EKG: ECHO: Stress Test: Cardiac Cath: PCI: CT Surgery: Holter monitor: EPS: PPM: CXR: Chest CT Scan: Radiography Diagnostic Testing: Radiology Impression Chest X-Ray 03/20/25 18:13 IMPRESSION: Findings suggestive of vascular congestion. [facility] Echocardiogram 03/21/25 05:55 Interpretation Summary The estimated ejection fraction is 10-15 %. Moderate concentric left ventricular hypertrophy. Moderate global right ventricular systolic dysfunction. Moderately dilated right ventricle. The left atrium is mildly enlarged. The right atrium is mildly enlarged. Mild (1+) mitral valve insufficiency. Mild (1+) eccentric tricuspid valve insufficiency. Ordering Physician: Chrissy^Sophia^Da^^ Referring Physician: Lee Mathews MD Performed By: Reema Shepard RCS 03/21/25 1316 Cosigner Signature (if applicable): CC: Dr. Lee Mathews MD~ Signed [facility]05-02-2025 Progress note Author Stanley [facility] Note Date/Time March 21, 2025 10:28a m [facility] Medical Records Department [address] [place] [address] Progress Note - Hospitalist 03/21/25 1016 MR#: [id number] Acct: [id number] Name: KELVIN HERNANDEZ Rep #:[id number] : 1955 69 From: Stanley Craig MD PCP: Dr. Lee Mathews MD Status :ADM IN Location: [place] [address] Reason for Visit Reason for Visit: Diagnoses Unspecified atrial fibrillation (03/20/25) Acute systolic (congestive) heart failure (03/20/25) Subjective Subjective Patient is a 69-year-old gentleman who was sent to the ED by the primary care physician on account of increasing shortness of breath with minimal activity as well as generalized swelling. An assessment of acute congestive heart failure was made admitted to monitored bed for further management Objective Data Objective Data Vital Signs: Vital Signs Temp Pulse Resp BP Pulse Ox O2 Del Method 97.8 F 98 22 H 102/67 94 Room Air 03/21/25 10:00 03/21/25 10:00 03/21/25 10:00 03/21/25 10:00 03/21/25 10:00 03/21/25 10:00 Oxygen Delivery Method Room Air Weight: 121.1 kg Body Mass Index (BMI) 40.6 Intake & Output: Intake and Output for Last 24 Hours 03/19/25 03/20/25 03/21/25 23:59 23:59 23:59 Intake Total 16.50 / 66.50 344.83 / 344.83 Output Total 1645 / 1645 Balance 16.50 / -233.50 -1300.17 / -1300.17 Lab / Micro Data 03/21/25 04:51 03/21/25 04:51 Labs: Laboratory Results - last 24 hr 03/20/25 17:33: WBC 7.8, RBC 5.11, Hgb 16.1, Hct 48.7, MCV 95.3 H, MCH 31.5, MCHC 33.1, RDW Std Deviation 53.7 H, RDW Coeff of Hair 15.2 H, Plt Count 87 L, MPV 11.3, Immature Gran % (Auto) 0.400, Neut % (Auto) 58.4, Lymph % (Auto) 31.0,[place] % (Auto) 9.7, Eos % (Auto) 0.4, Baso % (Auto) 0.1, Absolute Neuts (auto) 4.5, Absolute Lymphs (auto) 2.40, Nucleated RBC % 0, Platelet Estimate MOD DEC, Polychromasia 1+, Anisocytosis 1+, Sodium 133, Potassium 4.3, Chloride 93 L, Carbon Dioxide 30.7, Anion Gap 10, BUN 25 H, Creatinine 1.50 H, Estim Creat Clear Calc 58.08, Est GFR (MDRD) Non-Af 49 L, BUN/Creatinine Ratio 16.9, [id number] H, Calcium 8.1, Magnesium 2.0 03/20/25 21:05: Troponin T High Sens 39 H 03/20/25 22:52: Troponin T Hi Sens 2 Hr 39 H 03/21/25 01:00: Troponin T Hi Sens 4Hr 37 H 03/21/25 04:51: WBC 7.1, RBC 4.77, Hgb 15.0, Hct 45.2, MCV 94.8 H, MCH 31.4, MCHC 33.2, RDW Std Deviation 52.9 H, RDW Coeff of Hair 15.4 H, Plt Count 83 L, MPV 11.1, Immature Gran % (Auto) 0.400, Neut % (Auto) 57.9, Lymph % (Auto) 31.8,[place] % (Auto) 9.5, Eos % (Auto) 0.3, Baso % (Auto) 0.1, Absolute Neuts (auto) 4.1, Absolute Lymphs (auto) 2.25, Nucleated RBC % 0, Sodium 135, Potassium 3.7, Chloride 94 L, Carbon Dioxide 29.4, Anion Gap 12, BUN 27 H, Creatinine 1.40 H, Estim Creat Clear Calc 61.25, Est GFR (MDRD) Non-Af 54 L, BUN/Creatinine Ratio 19.2, Glucose 92, Calcium 8.0, Phosphorus 3.9, Total Bilirubin 1.09, AST 135 H, ALT 128 H, Alkaline Phosphatase 178 H, Total Protein 5.8 L, Albumin 3.4, Globulin 2.4, Albumin/Globulin Ratio 1.4, Triglycerides 47, Cholesterol 96, LDL Cholesterol, Calc 44, VLDL Cholesterol 9, HDL Cholesterol 43, Cholesterol/HDL Ratio 2.25, TSH 1.460 Radiography Diagnostic Testing: Radiology Impression Chest X-Ray 03/20/25 18:13 IMPRESSION: Findings suggestive of vascular congestion. Reading Location: [facility] Physical Exam Narrative GENERAL: cooperative HEENT: Atraumatic; normocephalic EYES; Anicteric, Normal Conjunctiva NECK; supple, normal thyroid, RESPIRATORY: Diminished to auscultation CARDIOVASCULAR: Regular S1 S2, GI: soft, normoactive bowel sounds, : No Renal angle tenderness; EXTREMITIES: Bipedal edema MUSCULOSKELETAL: no muscle wasting NEURO: Awake; no lateralizing signs. SKIN: No Rash PSYCH; Flat affect Assessment & Plan Assessment/Plan (1) Acute systolic CHF (congestive heart failure): (2) Atrial fibrillation with RVR: PLAN: Plan Patient is a 69-year-old gentleman who was sent to the ED by the primary care physician on account of increasing shortness of breath with minimal activity as well as generalized swelling. An assessment of acute congestive heart failure was made admitted to monitored bed for further management 1. Acute decompensated congestive heart failure ? Type unknown. Admitted to monitored bed manage with strict input and output, daily weight, fluid restriction, low-sodium diet as well as diuretic therapy with furosemide drip. Echo ordered for EF assessment. Consult was placed to cardiology 2. Paroxysmal atrial fibrillation ? Patient presented with RVR. Patient was started on Cardizem drip admitted to monitored bed. Cardizem drip being titrated to keep heart rate less than 100 3. Acute kidney injury ? Creatinine from 03/03/2025 was 1.06 creatinine on admission was 1.50. This is suspected to be secondary to hypoperfusion from CHF do expect improvement in kidney function with with diuresis. Repeat BMP ordered in a.m. for monitoring 4. Essential hypertension Patient is on metoprolol did continue lisinopril was held given patient worsening kidney function 5. Class III obesity with BMI of 40.6 ? Complicating care weight loss advised 6. Tobacco dependence ? Counseled on cessation, offered nicotine patch for tobacco cravings 7. COPD ? Currently not in exacerbation aerosol treatment as needed 8. Abnormal LFTs ? Suspected to be secondary to hepatic congestion from CHF repeated LFTs in a.m.for further management 9. Elevated troponin Suspected to be secondary to demand ischemia from congestive heart failure. Patient troponins have remained flat. Echo has been ordered for LVEF assessment 10. DVT prophylaxis ? Patient is on systemic anticoagulation with apixaban Charges/Coding Visit Charges Inpatient E&M: 36028 Subs Hosp L3 03/21/25 1028 <Electronically signed by Stanley Craig MD> Cosigner Signature (if applicable): CC: ~ Signed [facility] Work Phone: [phone] 307-679505-02-2025 Progress note [facility] Medical Records Department [address] [place] [id number] Progress Note - Hospitalist 03/21/25 1016 MR#: [id number] Acct: [id number] Name: KELVIN HERNANDEZ Jr. Rep #:[id number] : 1955 69 From: Stanley Craig MD PCP: Dr. Lee Mathews MD Status :ADM IN Location: [facility] [id number] Reason for Visit Reason for Visit: Diagnoses Unspecified atrial fibrillation (03/20/25) Acute systolic (congestive) heart failure (03/20/25) Subjective Subjective Patient is a 69-year-old gentleman who was sent to the ED by the primary care physician on account of increasing shortness of breath with minimal activity as well as generalized swelling. An assessment of acute congestive heart failure was made admitted to monitored bed for further management Objective Data Objective Data Vital Signs: Vital Signs Temp Pulse Resp BP Pulse Ox O2 Del Method 97.8 F 98 22 H 102/67 94 Room Air 03/21/25 10:00 03/21/25 10:00 03/21/25 10:00 03/21/25 10:00 03/21/25 10:00 03/21/25 10:00 Oxygen Delivery Method Room Air Weight: 121.1 kg Body Mass Index (BMI) 40.6 Intake & Output: Intake and Output for Last 24 Hours 03/19/25 03/20/25 03/21/25 23:59 23:59 23:59 Intake Total 16.50 / 66.50 344.83 / 344.83 Output Total 1645 / 1645 Balance 16.50 / -233.50 -1300.17 / -1300.17 Lab / Micro Data 03/21/25 04:51 03/21/25 04:51 Labs: Laboratory Results - last 24 hr 03/20/25 17:33: WBC 7.8, RBC 5.11, Hgb 16.1, Hct 48.7, MCV 95.3 H, MCH 31.5, MCHC 33.1, RDW Std Deviation 53.7 H, RDW Coeff of Hair 15.2 H, Plt Count 87 L, MPV 11.3, Immature Gran % (Auto) 0.400, Neut% (Auto) 58.4, Lymph % (Auto) 31.0,[place] % (Auto) 9.7, Eos % (Auto) 0.4, Baso % (Auto) 0.1, AbsoluteNeuts (auto) 4.5, Absolute Lymphs (auto) 2.40, Nucleated RBC % 0, Platelet Estimate MOD DEC, Polychromasia 1+, Anisocytosis 1+, Sodium 133, Potassium 4.3, Chloride 93 L, Carbon Dioxide 30.7, Anion Gap 10, BUN 25 H, Creatinine 1.50 H, Estim Creat Clear Calc 58.08, Est GFR (MDRD) Non-Af 49 L, BUN/Creatinine Ratio 16.9, [id number] H, Calcium 8.1, Magnesium 2.0 03/20/25 21:05: Troponin T High Sens 39 H 03/20/25 22:52: Troponin T Hi Sens 2 Hr 39 H 03/21/25 01:00: Troponin T Hi Sens 4Hr 37 H 03/21/25 04:51: WBC 7.1, RBC 4.77, Hgb 15.0, Hct 45.2, MCV 94.8 H, MCH 31.4, MCHC 33.2, RDW Std Deviation 52.9 H, RDW Coeff of Hair 15.4 H, Plt Count 83 L, MPV 11.1, Immature Gran % (Auto) 0.400, Neut% (Auto) 57.9, Lymph % (Auto) 31.8,[place] % (Auto) 9.5, Eos % (Auto) 0.3, Baso % (Auto) 0.1, AbsoluteNeuts (auto) 4.1, Absolute Lymphs (auto) 2.25, Nucleated RBC % 0, Sodium 135, Potassium 3.7, Chloride 94 L, Carbon Dioxide 29.4, Anion Gap 12, BUN 27 H, Creatinine 1.40 H, Estim Creat Clear Calc 61.25, Est GFR (MDRD) Non-Af 54 L, BUN/Creatinine Ratio 19.2, Glucose 92, Calcium 8.0, Phosphorus 3.9, Total Bilirubin 1.09, AST 135 H, ALT 128 H, Alkaline Phosphatase 178 H, Total Protein 5.8 L, Albumin 3.4, Globulin 2.4, Albumin/Globulin Ratio 1.4, Triglycerides 47, Cholesterol 96, LDL Cholesterol, Calc 44, VLDL Cholesterol 9, HDL Cholesterol 43, Cholesterol/HDL Ratio 2.25, TSH 1.460 Radiography Diagnostic Testing: Radiology Impression Chest X-Ray 03/20/25 18:13 IMPRESSION: Findings suggestive of vascular congestion. Reading Location: [facility] Physical Exam Narrative GENERAL: cooperative HEENT: Atraumatic; normocephalic EYES; Anicteric, Normal Conjunctiva NECK; supple, normal thyroid, RESPIRATORY: Diminished to auscultation CARDIOVASCULAR: Regular S1 S2, GI: soft, normoactive bowel sounds, : No Renal angle tenderness; EXTREMITIES: Bipedal edema MUSCULOSKELETAL: no muscle wasting NEURO: Awake; no lateralizing signs. SKIN: No Rash PSYCH; Flat affect Assessment & Plan Assessment/Plan (1) Acute systolic CHF (congestive heart failure): (2) Atrial fibrillation with RVR: PLAN: Plan Patient is a 69-year-old gentleman who was sent to the ED by the primary care physician on account of increasing shortness of breath with minimal activity as well as generalized swelling. An assessment of acute congestive heart failure was made admitted to monitored bed for further management 1. Acute decompensated congestive heart failure ? Type unknown. Admitted to monitored bed manage with strict input and output, daily weight, fluid restriction, low-sodium diet as well as diuretic therapy with furosemide drip. Echo ordered for EF assessment. Consult was placed to cardiology 2. Paroxysmal atrial fibrillation ? Patient presented with RVR. Patient was started on Cardizem drip admitted to monitored bed. Cardizem drip being titrated to keep heart rate less than 100 3. Acute kidney injury ? Creatinine from 03/03/2025 was 1.06 creatinine on admission was 1.50. This is suspected to be secondary to hypoperfusion from CHF do expect improvement in kidney function with with diuresis. Repeat BMP ordered in a.m. for monitoring 4. Essential hypertension Patient is on metoprolol did continue lisinopril was held given patient worsening kidney function 5. Class III obesity with BMI of 40.6 ? Complicating care weight loss advised 6. Tobacco dependence ? Counseled on cessation, offered nicotine patch for tobacco cravings 7. COPD ? Currently not in exacerbation aerosol treatment as needed 8. Abnormal LFTs ? Suspected to be secondary to hepatic congestion from CHF repeated LFTs in a.m.for further management 9. Elevated troponin Suspected to be secondary to demand ischemia from congestive heart failure. Patient troponins have remained flat. Echo has been ordered for LVEF assessment 10. DVT prophylaxis ? Patient is on systemic anticoagulation with apixaban Charges/Coding Visit Charges Inpatient E&M: 22306 [facility] Hosp 03/21/25 1028 Cosigner Signature (if applicable): CC: ~ Signed [facility]05-02-2025 Discharge summary Author Dae Mckeon [facility] Note Date/Time March 20, 2025 10:29p m [facility] Medical Records Department [address] [place] [address] Emergency Department Summary 03/20/25 MR#: [id number] Acct: [id number] Name: KELVIN HERNANDEZ Jr. Rep #:[id number] : 1955 69 From: Dae Mckeon MD PCP: Dr. Lee Mathews MD Status :ADM IN Location: [facility] [id number] [facility] <FELICIA Murillo - Last Filed: 03/20/25 20:38> History of Present Illness Chief Complaint: Abn Labs Narrative Narrative: Patient presenting today due to dyspnea with exertion and bilateral leg swellingthat has been ongoing for about a month but progressively worsening. He reportsfeeling short of breath even with trying to get up out of his chair. His PCP recently increased his Lasix and is suspicious that he has CHF. However, despite increasing his Lasix his symptoms have worsened. He reports that he hasgained 6 pounds in the past 2 days. He is scheduled to have an outpatient echocardiogram next week. He did have outpatient labs performed yesterday and had a follow-up with his PCP today, PCP recommended he come into the emergency department so that he can be admitted to the hospital. He is on Eliquis due to history of A-fib. Additionally reports history of COPD, no longer uses tobacco. He denies any fevers, chills, chest pain, or recent illness. [facility] <FELICIA Murillo - Last Filed: 03/20/25 20:38> [facility] Medical History (Updated 03/20/25 @ 20:38 by FELICIA Murillo) PAF (paroxysmal atrial fibrillation) CKD (chronic kidney disease), stage II Thrombocytopenia COPD (chronic obstructive pulmonary disease) Morbid obesity HLD (hyperlipidemia) HTN (hypertension) Tobacco use Anxiety and depression Cancer Home Medications ?Medication ?Instructions ?Recorded ?Last Taken ?Type lisinopril 20 mg tablet 20 mg PO QDAY hyperte 07/02/18 05:30 History albuterol sulfate 90 mcg/actuation 2 puff inhalation 4 X/DAY PRN PRN 03/20/25 Unknown History aerosol inhaler shortness of breath or wheez ing apixaban 5 mg tablet (Eliquis) 5 mg PO BID t 03/20/25 Unknown History furosemide 20 mg tablet 20 mg PO BID PRN water pill 03/20/25 Unknown History metoprolol tartrate 50 mg tablet 50 mg PO BID hyperten sandi 03/20/25 Unknown History Allergy/AdvReac Type Severity Reaction Status Date / Time sertraline (From Zoloft) Allergy Other Verified 03/20/25 17:24 Family History Father History of blood clots Lupus Bowel disease Colon cancer Skin cancer CVA (cerebral vascular accident) Mother Hypertension Surgical History History of appendectomy Social History Smoking Status: Current some day smoker tobacco type: cigarettes additional social history: DOES USE ASPIRIN ROS <FELICIA Murillo - Last Filed: 03/20/25 20:38> ROS ED Constitutional Constitutional ED: Denies chills or fever(s) Cardiovascular Cardiovascular: Denies chest pain Respiratory/Chest Respiratory/Chest: Reports dyspnea on exertion; Denies cough Gastrointestinal Gastrointestinal: Denies abdominal pain, nausea or vomiting Musculoskeletal Musculoskeletal: Denies arthralgias or myalgias Integumentary Denies rash Neurologic Neurologic: Denies weakness EXAM <FELICIA Murillo - Last Filed: 03/20/25 20:38> Physical Exam Const Vital Signs: 03/20/25 17:24 03/20/25 17:25 03/20/25 18:06 Temperature 98.7 F Temperature Source Oral Pulse Rate 66 61 Respiratory Rate 18 12 Respiratory Pattern Normal Blood Pressure 104/89 H Blood Pressure Mean 94 Blood Pressure Source Pulse Ox 98 95 Oxygen Delivery Method Room Air Room Air 03/20/25 18:30 03/20/25 19:00 03/20/25 19:42 Temperature Temperature Source Pulse Rate 120 H 130 H 125 H Respiratory Rate 23 H 23 H 18 Respiratory Pattern Blood Pressure 95/82 H 107/85 H 128/57 H Blood Pressure Mean 86 92 80 Blood Pressure Source Monitor Pulse Ox 94 97 Oxygen Delivery Method Room Air 03/20/25 20:00 03/20/25 20:00 Temperature 97.9 F Temperature Source Pulse Rate 92 97 Respiratory Rate 18 18 Respiratory Pattern Blood Pressure 114/78 114/78 Blood Pressure Mean 90 90 Blood Pressure Source Pulse Ox 97 96 Oxygen Delivery Method Room Air Positive well nourished, well developed and no apparent distress General Appearance ED: well developed HEENT Reports normocephalic and head/scalp atraumatic Mouth ED: Yes moist mucous membranes normal Eyes PERRL and EOMs intact bilaterally Neck full ROM and supple Chest Wall inspection of chest normal Resp normal respiratory effort and clear to auscultation bilaterally Cardio regular rate and regular rhythm GI soft to palpation, non-tender, non-distended and no masses Back/Spine normal ROM and normal to inspection Extremity full ROM Extremity Narrative: Bilateral lower extremity edema that is equal Neuro oriented x3, CN's II-XII intact bilaterally, moves all extremities, no focal motor deficits and no sensory deficits noted Sensorium / Orientation: awake and alert Psych mental status grossly normal and thought process normal Skin no rashes or lesions noted and no wounds <Dr. Dae Mckeon MD - Last Filed: 03/20/25 18:57> Physical Exam Const Vital Signs: 03/20/25 17:24 03/20/25 17:25 03/20/25 18:06 Temperature 98.7 F Temperature Source Oral Pulse Rate 66 61 Respiratory Rate 18 12 Respiratory Pattern Normal Blood Pressure 104/89 H Blood Pressure Mean 94 Blood Pressure Source Pulse Ox 98 95 Oxygen Delivery Method Room Air Room Air 03/20/25 18:30 03/20/25 19:00 03/20/25 19:42 Temperature Temperature Source Pulse Rate 120 H 130 H 125 H Respiratory Rate 23 H 23 H 18 Respiratory Pattern Blood Pressure 95/82 H 107/85 H 128/57 H Blood Pressure Mean 86 92 80 Blood Pressure Source Monitor Pulse Ox 94 97 Oxygen Delivery Method Room Air 03/20/25 20:00 03/20/25 20:00 Temperature 97.9 F Temperature Source Pulse Rate 92 97 Respiratory Rate 18 18 Respiratory Pattern Blood Pressure 114/78 114/78 Blood Pressure Mean 90 90 Blood Pressure Source Pulse Ox 97 96 Oxygen Delivery Method Room Air [facility] <FELICIA Murillo - Last Filed: 03/20/25 20:38> [facility] Narrative Medical decision making narrative: Patient presenting today due to concerns for CHF exacerbation. He has not had an echo recently but his PCP is suspicious he has CHF and he is scheduled to have an echo next week. He has been having increasingly worse leg swelling and dyspnea with exertion over the past month and despite increasing his Lasix dose he has gained 6 pounds over the past 2 days. After seeing his PCP again in the office today, he was advised to come here for admission to the hospital. He didhave a BNP obtained yesterday that was 8957. He was given IV metoprolol, digoxin initially and his heart rate did somewhat improve but he is still consistently tachycardic around 120 bpm, he was given IV Cardizem and placed on a Cardizem drip. Heart rate is now controlled. After speaking with the hospitalist he will be admitted in stable condition. Lab Data Attestation: I reviewed the patient's lab results. Labs: Laboratory Results - last 24 hr 03/20/25 17:33 WBC 7.8 RBC 5.11 Hgb 16.1 Hct 48.7 MCV 95.3 H MCH 31.5 MCHC 33.1 RDW Std Deviation 53.7 H RDW Coeff of Hair 15.2 H Plt Count 87 L MPV 11.3 Immature Gran % (Auto) 0.400 Neut % (Auto) 58.4 Lymph % (Auto) 31.0 [place] % (Auto) 9.7 Eos % (Auto) 0.4 Baso % (Auto) 0.1 Absolute Neuts (auto) 4.5 Absolute Lymphs (auto) 2.40 Nucleated RBC % 0 Platelet Estimate MOD DEC Polychromasia 1+ Anisocytosis 1+ Sodium 133 Potassium 4.3 Chloride 93 L Carbon Dioxide 30.7 Anion Gap 10 BUN 25 H Creatinine 1.50 H Estim Creat Clear Calc 58.08 Est GFR (MDRD) Non-Af 49 L BUN/Creatinine Ratio 16.9 Glucose 108 H Calcium 8.1 Radiography X-Ray: Read by ED Physician Diagnostic Testing: Clinical Impression(s) from Imaging Studies Chest X-Ray 03/20/25 18:13 IMPRESSION: Findings suggestive of vascular congestion. Reading Location: [facility] EKG Initial EKG: Comments: 139 bpm, A-fib with RVR, no ST elevation, interpreted by attending ED physician <Dr. Dae Mckeon MD - Last Filed: 03/20/25 18:57> [facility] Lab Data Labs: Laboratory Results - last 24 hr 03/20/25 17:33 WBC 7.8 RBC 5.11 Hgb 16.1 Hct 48.7 MCV 95.3 H MCH 31.5 MCHC 33.1 RDW Std Deviation 53.7 H RDW Coeff of Hair 15.2 H Plt Count 87 L MPV 11.3 Immature Gran % (Auto) 0.400 Neut % (Auto) 58.4 Lymph % (Auto) 31.0 [place] % (Auto) 9.7 Eos % (Auto) 0.4 Baso % (Auto) 0.1 Absolute Neuts (auto) 4.5 Absolute Lymphs (auto) 2.40 Nucleated RBC % 0 Platelet Estimate MOD DEC Polychromasia 1+ Anisocytosis 1+ Sodium 133 Potassium 4.3 Chloride 93 L Carbon Dioxide 30.7 Anion Gap 10 BUN 25 H Creatinine 1.50 H Estim Creat Clear Calc 58.08 Est GFR (MDRD) Non-Af 49 L BUN/Creatinine Ratio 16.9 Glucose 108 H Calcium 8.1 Radiography Diagnostic Testing: Clinical Impression(s) from Imaging Studies Chest X-Ray 03/20/25 18:13 IMPRESSION: Findings suggestive of vascular congestion. [facility] Treatment and Re-Evaluation Comments:: I have personally performed a face to face assessment of the patient and have reviewed the MEÑO Note. I performed a substantive portion of the visit including all aspects of the following. My christine findings include: History is waking due to edema and dyspnea with exertion for the past month or more, despite taking furosemide as an outpatient and getting worse now. Has an outpatient echo scheduled for 5 days from now. History of A-fib. Feeling lightheaded on occasion, no chest pain and no syncope. Exam is anasarca lower extremities up to lower abdomen. Diminished throughout lungs, not frankly wet. Some mild JVD present. Conversive in full sentences while sitting or rest. Abdomen benign. Medical Decison Making 2 view chest x-ray my interpretation shows mild cephalization and cardiomegaly, very small blunting of the CVA suggestive of effusions bilaterally, no overt edema/infiltrate. EKG consistent with A-fib with RVR but nothing acute. His blood pressure was 95 systolic with a heart rate in the 120s, so we initially gave him digoxin in addition to a dose of IV metoprolol 5 mg since he has not had his evening dose of metoprolol yet. He does have some mild DAVID. Plan is for admission and further evaluation and treatment. Other additions or changes: [None] Discharge Plan Dx/Rx/DC Orders Clinical Impression: Acute systolic CHF (congestive heart failure), Atrial fibrillation with RVR, History of COPD, Dyspnea Disposition Disposition: Acute Care Hospital [facility] Discharge Date/Time: 03/20/25 20:30 What to do if you have Problems For any increased pain, shortness of breath, bleeding, nausea or vomiting, chest pain, or any unexpected problems, contact your Primary Care Provider. Call [facility] ([phone]) or report to the closest Emergency Room. Call 911 if necessary. 03/20/252228 <Electronically signed by Dae Mckeon MD> Cosigner Signature (if applicable): 03/20/252037 <Electronically signed by Roselia DUARTE> CC: Dr. Lee Mathews MD ~ Signed [facility] Work Phone: 1(760) 538-341705-01-2025 History and physical note Author Sophia Lowe [facility] Note Date/Time March 20, 2025 8:46pm [facility] Medical Records Department [address] [place] [address] H&P Exam - Hospitalist 03/20/251950 MR#: [id number] Acct: [id number] Name: KELVIN HERNANDEZ Jr. Rep #:[id number] : 1955 69 From: Sophia Lowe MD PCP: Dr. Lee Mathews MD Status :ADM IN Location: [facility] [id number] HPI - General General Date of Admission: 03/20/25 Date of Service: 03/20/25 Chief Complaint: Dyspnea, orthopnea, weight gain, edema. HPI Narrative The patient is a 69 y/o M w/ PMHx: Morbid obesity, HTN, HLD, Anxiety and Depression, COPD, Tobacco use, HFrEF, PAF who presents to the [facility] ED on 03/20/2025 with history of approximately 4 weeks of progressively worsening dyspnea, worse with exertion, bilateral lower extremity swelling and weight gain as well as orthopnea with PCP evaluation with suspicion for heart failure with Lasix administration however despite this he has continued to gain weight noting that he is gained 6 pounds over the last 2 days alone with plannedoutpatient PCP with repeat labs today prior however given his worsened status PCP recommended presented to the ED for evaluation. PCP did perform an outpatient BNP that was noted to be 8957. He notes that he has gained approximately 50 pounds over the last couple months. Workup in the ED included T98.7, heart rate 66, BP 104/89, respiratory rate 18, 90% on room air with most recent repeat vitals heart rate 130, BP 107/85, respiratory rate 23, 94% room air, CBC w/ WBC 7.8, Hgb 16.1, Plts 87 without shift, BMP with chloride 93, BUN/creatinine 25/1.50, GFR 49, glucose 108, CXR with mild cephalization, mild blunting BL bases however final read pending per radiology, EKG with atrial fibrillation with RVR. In ED patient ministered metoprolol 5 mg IV x 1, digoxin 250 mcg IV x 1. BP did improve therefore per discussion with the patient currently being to cardizem drip given no marked change in rate. [facility] Medical History PAF (paroxysmal atrial fibrillation) CKD (chronic kidney disease), stage II Thrombocytopenia COPD (chronic obstructive pulmonary disease) Morbid obesity HLD (hyperlipidemia) HTN (hypertension) Tobacco use Anxiety and depression Cancer Home Medications ?Medication ?Instructions ?Recorded ?Last Taken ?Type lisinopril 20 mg tablet 20 mg PO QDAY hyperte 07/02/18 05:30 History albuterol sulfate 90 mcg/actuation 2 puff inhalation 4 X/DAY PRN PRN 03/20/25 Unknown History aerosol inhaler shortness of breath or wheez ing apixaban 5 mg tablet (Eliquis) 5 mg PO BID t 03/20/25 Unknown History furosemide 20 mg tablet 20 mg PO BID PRN water pill 03/20/25 Unknown History metoprolol tartrate 50 mg tablet 50 mg PO BID hyperten sandi 03/20/25 Unknown History Allergy/AdvReac Type Severity Reaction Status Date / Time sertraline (From Zoloft) Allergy Other Verified 03/20/25 17:24 Family History Father History of blood clots Lupus Bowel disease Colon cancer Skin cancer CVA (cerebral vascular accident) Mother Hypertension Surgical History History of appendectomy Social History (Updated 03/20/25 @ 20:[address] Sophia Lowe MD) household members: spouse Smoking Status: Current some day smoker tobacco type: cigarettes alcohol intake: never substance use type: does not use additional social history: DOES USE ASPIRIN ROS ROS Narrative Admission Review of Systems: CONSTITUTIONAL: No weight loss, fever, chills, + weakness or fatigue. HEENT: Eyes: No visual loss, blurred vision, double vision or yellow sclerae. Ears, Nose, Throat: No hearing loss, sneezing, congestion, runny nose or sore throat. SKIN: No rash or itching, lesions, wounds. CARDIOVASCULAR: + Dyspnea, orthopnea, edema, weight gain. No palpitations, syncopal events. RESPIRATORY: + Dyspnea, worse with exertion. No wheezing, hemoptysis. GASTROINTESTINAL: No anorexia, nausea, vomiting or diarrhea, abdominal pain, melena, BRBPR. GENITOURINARY: No dysuria, frequency, urgency or retention. NEUROLOGICAL: No headache, dizziness, syncope, paralysis, ataxia, numbness or tingling in the extremities, focal weakness, change in bowel or bladder control,seizure. MUSCULOSKELETAL: + muscle, back pain, joint pain or stiffness. HEMATOLOGIC: No anemia. + Easy bleeding/bruising. LYMPHATICS: No enlarged nodes. No history of splenectomy. PSYCHIATRIC: + History of anxiety and depression. ENDOCRINOLOGIC: No reports of sweating, cold or heat intolerance. No polyuria orpolydipsia. ALLERGIES: + History of allergic rhinitis. Vital Signs Vital Signs Vital Signs: 03/20/25 17:24 03/20/25 17:25 03/20/25 18:06 Temperature 98.7 F Temperature Source Oral Pulse Rate 66 61 Respiratory Rate 18 12 Respiratory Pattern Normal Blood Pressure 104/89 H Blood Pressure Mean 94 Blood Pressure Source Pulse Ox 98 95 Oxygen Delivery Method Room Air Room Air 03/20/25 18:30 03/20/25 19:00 03/20/25 19:42 Temperature Temperature Source Pulse Rate 120 H 130 H 125 H Respiratory Rate 23 H 23 H 18 Respiratory Pattern Blood Pressure 95/82 H 107/85 H 128/57 H Blood Pressure Mean 86 92 80 Blood Pressure Source Monitor Pulse Ox 94 97 Oxygen Delivery Method Room Air Weight Weight: 267 lb 3.2 oz Body Mass Index (BMI) 39.4 Physical Exam Narrative Physical Examination: General: Awake, alert, oriented x 3 and cooperative, seated upright in the ED bed, fatigued. Skin: Normal color, normal turgor, no icterus, no cyanosis except occasional stage ecchymoses, abrasion, significant lichenification of the lower extremities, bilateral lower extremity chronic venous stasis skin changes. HEENT: AT/NC, EOMI, PERRLA, mildly dry oropharynx, no carotid bruits, difficult to discern JVD given thickened neck. Or JVD noted. Lungs: Diminished, greater bases, no marked rales evident, no evidence of any distress, no rhonchi or wheezing. Heart: Irregular irregular, improving from initial arrival however; no gallop, rub audible. Abdomen: Soft, morbidly obese, NTTP, distant BS, difficult to discern distentionand HSM given habitus. Extremities: No cyanosis, no clubbing, significant pedal to lower abdominal 2-3+pitting edema. Neurological: Patient awake, alert, oriented as noted, cognitive function intact; pupils equally reactive to light and accommodation, cranial nerves grossnormal, moving all 4 extremities, no focal deficits, strength moderately to severely globally decreased secondary to acute presentation. Psychiatric: Affect appears fatigued, no acute evidence of depressive or anxietyfeelings. Results Lab / Micro Data 03/20/25 17:33 03/20/25 17:33 Labs: Laboratory Results - last 24 hr 03/20/25 17:33: WBC 7.8, RBC 5.11, Hgb 16.1, Hct 48.7, MCV 95.3 H, MCH 31.5, MCHC 33.1, RDW Std Deviation 53.7 H, RDW Coeff of Hair 15.2 H, Plt Count 87 L, MPV 11.3, Immature Gran % (Auto) 0.400, Neut % (Auto) 58.4, Lymph % (Auto) 31.0,[place] % (Auto) 9.7, Eos % (Auto) 0.4, Baso % (Auto) 0.1, Absolute Neuts (auto) 4.5, Absolute Lymphs (auto) 2.40, Nucleated RBC % 0, Platelet Estimate MOD DEC, Polychromasia 1+, Anisocytosis 1+, Sodium 133, Potassium 4.3, Chloride 93 L, Carbon Dioxide 30.7, Anion Gap 10, BUN 25 H, Creatinine 1.50 H, Estim Creat Clear Calc 58.08, Est GFR (MDRD) Non-Af 49 L, BUN/Creatinine Ratio 16.9, [id number] H, Calcium 8.1 Assessment & Plan Assessment/Plan (1) Acute systolic CHF (congestive heart failure): (2) Atrial fibrillation with RVR: PLAN: Plan The patient is a 69 y/o M w/ PMHx: Morbid obesity, HTN, HLD, Anxiety and Depression, COPD, Tobacco use, HFrEF, PAF who presents to the [facility] ED on 03/20/2025 with history of approximately 4 weeks of progressively worsening dyspnea, worse with exertion, bilateral lower extremity swelling and weight gain as well as orthopnea with PCP evaluation with suspicion for heart failure with Lasix administration however despite this he has continued to gain weight noting that he is gained 6 pounds over the last 2 days alone with plannedoutpatient PCP with repeat labs today prior however given his worsened status PCP recommended presented to the ED for evaluation. #1. Acute Decompensated HFrEF complicated by #2: Will admit to PCU, maintain oncardiac telemetry, obtain cardiac enzyme series, obtain serial EKGs, maintain asBP allows on IV lasix diuresis with lower dose drip, monitor I/Os, maintain on intake restriction, continue medical therapy with Eliquis, Cardizem drip as noted with transition to metoprolol as able, not on statin therapy with FLP requested, obtain TSH and magnesium level, echocardiogram quested, will place neck sydnee wraps with lower extremity elevation. Temporarily holding lisinopril as noted. #2. Paroxsymal atrial fibrillation w/ RVR: EKG in ED w/ atrial fibrillation w/ RVR. Patient administered Lopressor 5 mg IV x 1 and digoxin to 150 mcg IV x 1 inED. Will maintain on telemetry, obtain cardiac enzyme serial set, obtain magnesium level, obtain ECHO, obtain TSH level. Will continue Cardizem drip admission in the ED with transition to metoprolol as able, continue home Eliquisregimen. #3. Acute kidney injury on CKD stage II per previous GFR trending: Secondary to#1, #2 and recent possible Lasix increase. Admission BUN/Cr 25/1.50, GFR 49, prior baseline creatinine noted to be 03/18/2025 creatinine 1.21 and previous to this on 03/03/2025 creatinine 1.06 however baseline noted prior to even this was 0.8-0.9 primarily. Given current presentation will continue to require diuresisas able, will temporarily hold lisinopril, add back once clinically appropriate. #4. Thrombocytopenia, unclear if chronic: Unclear etiology, admission Plts 87, prior 03/03/25 Plts 100, cautiously continue eliquis, continue to trend CBC. #5. Chronic COPD: Not on chronic regimen per current list, will maintain on ATCipratropium regimen, PRN albuterol only if absolutely necessary given PAF with RVR, HOB, IS parameters. #6. Hypertension: Continue home regimen including IV Cardizem drip as noted, IVLasix PRN hydralazine. Temporarily holding lisinopril as noted. Add back metoprolol as able. #7. Hyperlipidemia: Not on regimen, no allergy listed, FLP in AM. #8. Tobacco Abuse: Encouraged cessation, inpatient consultation per RT, NR if desired. #9. Morbid Obesity: Weight loss and lifestyle changes encouraged. #10. Anxiety and depression: Per current list patient is only on lorazepam as needed however clarifying as this may be remote. #11. DVT prophylaxis: Continue home Eliquis regimen. #12. CODE status: Patient HCPOA and living will are not in place but his who is present he notes would be his medical decision-maker if necessary. Discussed CODE status at length including difference between FULL code, DNR-CCA and DNR-CC status. Following discussions about the differences in these status, requested Full Code status. Advanced Care Planning Face to Face Time: 16 minutes. Charges/Coding Visit Charges Inpatient E&M: 76786 Init Hosp L3 Procedures Hospitalists Procedures: 46939 Advncd Care Plan 30 Min 03/20/252045 <Electronically signed by Sophia Lowe MD> Cosigner Signature (if applicable): CC: Dr. Sophia Lowe MD; Dr. Lee Mathews MD~ Signed [facility] Work Phone: [phone]) 394-860605-01-2025 Discharge summary [facility] Medical Records Department [address] [place] [address] Emergency Department Summary 03/20/25 MR#: [id number] Acct: [id number] Name: KELVIN HERNANDEZ JrSavita Rep #:[id number] : 1955 69 From: Dae Mckeon MD PCP: Dr. Lee Mathews MD Status :ADM IN Location: [place] [address] HPI History of Present Illness Chief Complaint: Abn Labs Narrative Narrative: Patient presenting today due to dyspnea with exertion and bilateral leg swellingthat has been ongoing for about a month but progressively worsening. He reportsfeeling short of breath even with tryingto get up out of his chair. His PCP recently increased his Lasix and is suspicious that he has CHF.However, despite increasing his Lasix his symptoms have worsened. He reports that he hasgained 6 pounds in the past 2 days. He is scheduled to have an outpatient echocardiogram next week. He did haveoutpatient labs performed yesterday and had a follow-up with his PCP today, PCP recommended he comeinto the emergency department so that he can be admitted to the hospital. He is on Eliquis due to history of A-fib. Additionally reports history of COPD, no longer uses tobacco. He denies any fevers,chills, chest pain, or recent illness. [facility] Medical History (Updated 03/20/25 @ 20:38 by FELICIA Murillo) PAF (paroxysmal atrial fibrillation) CKD (chronic kidney disease), stage II Thrombocytopenia COPD (chronic obstructive pulmonary disease) Morbid obesity HLD (hyperlipidemia) HTN (hypertension) Tobacco use Anxiety and depression Cancer Home Medications ?Medication ?Instructions ?Recorded ?Last Taken ?Type lisinopril 20 mg tablet 20 mg PO QDAY hyperte 07/02/18 05:30 History albuterol sulfate 90 mcg/actuation 2 puff inhalation 4 X/DAY PRN PRN 03/20/25 Unknown History aerosol inhaler shortness of breath or wheez ing apixaban 5 mg tablet (Eliquis) 5 mg PO BID t 03/20/25 Unknown History furosemide 20 mg tablet 20 mg PO BID PRN water pill 03/20/25 Unknown History metoprolol tartrate 50 mg tablet 50 mg PO BID hyperten sandi 03/20/25 Unknown History Allergy/AdvReac Type Severity Reaction Status Date / Time sertraline (From Zoloft) Allergy Other Verified 03/20/25 17:24 Family History Father History of blood clots Lupus Bowel disease Colon cancer Skin cancer CVA (cerebral vascular accident) Mother Hypertension Surgical History History of appendectomy Social History Smoking Status: Current some day smoker tobacco type: cigarettes additional social history: DOES USE ASPIRIN ROS ROS ED Constitutional Constitutional ED: Denies chills or fever(s) Cardiovascular Cardiovascular: Denies chest pain Respiratory/Chest Respiratory/Chest: Reports dyspnea on exertion; Denies cough Gastrointestinal Gastrointestinal: Denies abdominal pain, nausea or vomiting Musculoskeletal Musculoskeletal: Denies arthralgias or myalgias Integumentary Denies rash Neurologic Neurologic: Denies weakness EXAM Physical Exam Const Vital Signs: 03/20/25 17:24 03/20/25 17:25 03/20/25 18:06 Temperature 98.7 F Temperature Source Oral Pulse Rate 66 61 Respiratory Rate 18 12 Respiratory Pattern Normal Blood Pressure 104/89 H Blood Pressure Mean 94 Blood Pressure Source Pulse Ox 98 95 Oxygen Delivery Method Room Air Room Air 03/20/25 18:30 03/20/25 19:00 03/20/25 19:42 Temperature Temperature Source Pulse Rate 120 H 130 H 125 H Respiratory Rate 23 H 23 H 18 Respiratory Pattern Blood Pressure 95/82 H 107/85 H 128/57 H Blood Pressure Mean 86 92 80 Blood Pressure Source Monitor Pulse Ox 94 97 Oxygen Delivery Method Room Air 03/20/25 20:00 03/20/25 20:00 Temperature 97.9 F Temperature Source Pulse Rate 92 97 Respiratory Rate 18 18 Respiratory Pattern Blood Pressure 114/78 114/78 Blood Pressure Mean 90 90 Blood Pressure Source Pulse Ox 97 96 Oxygen Delivery Method Room Air Positive well nourished, well developed and no apparent distress General Appearance ED: well developed HEENT Reports normocephalic and head/scalp atraumatic Mouth ED: Yes moist mucous membranes normal Eyes PERRL and EOMs intact bilaterally Neck full ROM and supple Chest Wall inspection of chest normal Resp normal respiratory effort and clear to auscultation bilaterally Cardio regular rate and regular rhythm GI soft to palpation, non-tender, non-distended and no masses Back/Spine normal ROM and normal to inspection Extremity full ROM Extremity Narrative: Bilateral lower extremity edema that is equal Neuro oriented x3, CN's II-XII intact bilaterally, moves all extremities, no focal motor deficits and no sensory deficits noted Sensorium / Orientation: awake and alert Psych mental status grossly normal and thought process normal Skin no rashes or lesions noted and no wounds Physical Exam Const Vital Signs: 03/20/25 17:24 03/20/25 17:25 03/20/25 18:06 Temperature 98.7 F Temperature Source Oral Pulse Rate 66 61 Respiratory Rate 18 12 Respiratory Pattern Normal Blood Pressure 104/89 H Blood Pressure Mean 94 Blood Pressure Source Pulse Ox 98 95 Oxygen Delivery Method Room Air Room Air 03/20/25 18:30 03/20/25 19:00 03/20/25 19:42 Temperature Temperature Source Pulse Rate 120 H 130 H 125 H Respiratory Rate 23 H 23 H 18 Respiratory Pattern Blood Pressure 95/82 H 107/85 H 128/57 H Blood Pressure Mean 86 92 80 Blood Pressure Source Monitor Pulse Ox 94 97 Oxygen Delivery Method Room Air 03/20/25 20:00 03/20/25 20:00 Temperature 97.9 F Temperature Source Pulse Rate 92 97 Respiratory Rate 18 18 Respiratory Pattern Blood Pressure 114/78 114/78 Blood Pressure Mean 90 90 Blood Pressure Source Pulse Ox 97 96 Oxygen Delivery Method Room Air MDM MDM MDM Narrative Medical decision making narrative: Patient presenting today due to concerns for CHF exacerbation. He has not had an echo recently but his PCP is suspicious he has CHF and he is scheduled to have an echo next week. He has been having increasingly worse leg swelling and dyspnea with exertion over the past month and despite increasing his Lasix dose he has gained 6 pounds over the past 2 days. After seeing his PCP again in the officetoday, he was advised to come here for admission to the hospital. He didhave a BNP obtained yesterday that was 8957. He was given IV metoprolol, digoxin initially and his heart rate did somewhat improve but he is still consistently tachycardic around 120 bpm, he was given IV Cardizem and placed on a Cardizem drip. Heart rate is now controlled. After speaking with the hospitalist he will be admitted in stable condition. Lab Data Attestation: I reviewed the patient's lab results. Labs: Laboratory Results - last 24 hr 03/20/25 17:33 WBC 7.8 RBC 5.11 Hgb 16.1 Hct 48.7 MCV 95.3 H MCH 31.5 MCHC 33.1 RDW Std Deviation 53.7 H RDW Coeff of Hair 15.2 H Plt Count 87 L MPV 11.3 Immature Gran % (Auto) 0.400 Neut % (Auto) 58.4 Lymph % (Auto) 31.0 [place] % (Auto) 9.7 Eos % (Auto) 0.4 Baso % (Auto) 0.1 Absolute Neuts (auto) 4.5 Absolute Lymphs (auto) 2.40 Nucleated RBC % 0 Platelet Estimate MOD DEC Polychromasia 1+ Anisocytosis 1+ Sodium 133 Potassium 4.3 Chloride 93 L Carbon Dioxide 30.7 Anion Gap 10 BUN 25 H Creatinine 1.50 H Estim Creat Clear Calc 58.08 Est GFR (MDRD) Non-Af 49 L BUN/Creatinine Ratio 16.9 Glucose 108 H Calcium 8.1 Radiography X-Ray: Read by ED Physician Diagnostic Testing: Clinical Impression(s) from Imaging Studies Chest X-Ray 03/20/25 18:13 IMPRESSION: Findings suggestive of vascular congestion. Reading Location: [facility] EKG Initial EKG: Comments: 139 bpm, A-fib with RVR, no ST elevation, interpreted by attending ED physician MDM Lab Data Labs: Laboratory Results - last 24 hr 03/20/25 17:33 WBC 7.8 RBC 5.11 Hgb 16.1 Hct 48.7 MCV 95.3 H MCH 31.5 MCHC 33.1 RDW Std Deviation 53.7 H RDW Coeff of Hair 15.2 H Plt Count 87 L MPV 11.3 Immature Gran % (Auto) 0.400 Neut % (Auto) 58.4 Lymph % (Auto) 31.0 [place] % (Auto) 9.7 Eos % (Auto) 0.4 Baso % (Auto) 0.1 Absolute Neuts (auto) 4.5 Absolute Lymphs (auto) 2.40 Nucleated RBC % 0 Platelet Estimate MOD DEC Polychromasia 1+ Anisocytosis 1+ Sodium 133 Potassium 4.3 Chloride 93 L Carbon Dioxide 30.7 Anion Gap 10 BUN 25 H Creatinine 1.50 H Estim Creat Clear Calc 58.08 Est GFR (MDRD) Non-Af 49 L BUN/Creatinine Ratio 16.9 Glucose 108 H Calcium 8.1 Radiography Diagnostic Testing: Clinical Impression(s) from Imaging Studies Chest X-Ray 03/20/25 18:13 IMPRESSION: Findings suggestive of vascular congestion. Reading Location: [facility] Treatment and Re-Evaluation Comments:: I have personally performed a face to face assessment of the patient and have reviewed the MEÑO Note. I performed a substantive portion of the visit including all aspects of the following. My christine findings include: History is waking due to edema and dyspnea with exertion for the past month or more, despite takingfurosemide as an outpatient and getting worse now. Has an outpatient echo scheduled for 5 days fromnow. History of A-fib. Feeling lightheaded on occasion, no chest pain and no syncope. Exam is anasarca lower extremities up to lower abdomen. Diminished throughout lungs, not frankly wet. Some mild JVD present. Conversive in full sentences while sitting or rest. Abdomen benign. Medical Decison Making 2 view chest x-ray my interpretation shows mild cephalization and cardiomegaly, very small blunting of the CVA suggestive of effusions bilaterally, no overt edema/infiltrate. EKG consistent with A-fib with RVR but nothing acute. His blood pressure was 95 systolic with a heartrate in the 120s, so we initially gave him digoxin in addition to a dose of IV metoprolol 5 mg since he has not had his evening dose of metoprolol yet. He does have some mild DAVID. Plan is for admission and further evaluation and treatment. Other additions or changes: [None] Discharge Plan Dx/Rx/DC Orders Clinical Impression: Acute systolic CHF (congestive heart failure), Atrial fibrillation with RVR, History of COPD, Dyspnea Disposition Disposition: Acute Care Hospital [facility] Discharge Date/Time: 03/20/25 20:30 What to do if you have Problems For any increased pain, shortness of breath, bleeding, nausea or vomiting, chest pain, or any unexpected problems, contact your Primary Care Provider. Call [facility] ([phone]) or report to the closest Emergency Room. Call 911 if necessary. 03/20/252228 Cosigner Signature (if applicable): 03/20/252037 CC: Dr. Lee Mathews MD ~ Signed [facility]05-01-2025 Evaluation note* Diagnosis Onset Date Resolution Status Admit Date Acute systolic CHF (congesti ve heart failure) acute March 20, 2025 7: 54pm Atrial fibrillation with RVR acute March 20, 2025 7:54pm Cardiac LV ejection fraction 10-20% acute March 20, 2025 7: 54pm Dyspnea acute March 20, 2025 7:54pm History of COPD chronic March 20, 2025 7:54pm Smoker chronic March 20, 2025 7:54pm [facility] Work Phone: 1(855) 918-937205-01-2025 Evaluation note* Diagnosis Onset Date Resolution Status Admit Date Acute systolic CHF (congesti ve heart failure) acute March 20, 2025 7: 54pm Atrial fibrillation with RVR acute March 20, 2025 7:54pm Cardiac LV ejection fraction 10-20% acute March 20, 2025 7: 54pm Dyspnea acute March 20, 2025 7:54pm History of COPD chronic March 20, 2025 7:54pm Smoker chronic March 20, 2025 7:54pm Atrial fibrillation with RVR acute April 03, 2025 1:34pm Dyspnea acute April 03, 2025 1:34pm [facility] Work Phone: 1(509) 359-377605-01-2025 Evaluation note* Diagnosis Onset Date Resolution Status Admit Date Acute systolic CHF (congesti ve heart failure) acute March 20, 2025 7: 54pm Atrial fibrillation with RVR acute March 20, 2025 7:54pm Smoker chronic March 20, 2025 7:54pm Dyspnea resolved March 20, 2025 7:54pm Cardiac LV ejection fraction 10-20% inactive March 20, 2025 7: 54pm History of COPD inactive March 20, 2025 7:54pm Atrial fibrillation with RVR acute April 03, 2025 1:34pm Hypersomnolence acute April 03, 2025 1:34pm Dyspnea resolved April 03, 2025 1:34pm Cardiac LV ejection fraction 10-20% inactive April 03, 2025 1 :34pm [facility] Work Phone: 1(229) 396-981005-01-2025 History and physical note [facility] Medical Records Department [address] [place] [address] H&P Exam - Hospitalist 03/20/251950 MR#: [id number] Acct: [id number] Name: KELVIN HERNANDEZ Jr. Rep #:[id number] : 1955 69 From: Sophia Lowe MD PCP: Dr. Lee Mathews MD Status :ADM IN Location: [facility] [id number] HPI - General General Date of Admission: 03/20/25 Date of Service: 03/20/25 Chief Complaint: Dyspnea, orthopnea, weight gain, edema. HPI Narrative The patient is a 69 y/o M w/ PMHx: Morbid obesity, HTN, HLD, Anxiety and Depression, COPD, Tobacco use, HFrEF, PAF who presents to the [facility] ED on 03/20/2025 with history of approximately 4 weeks of progressively worsening dyspnea, worse with exertion, bilateral lower extremity swelling and weight gain as well as orthopnea with PCP evaluation with suspicion for heart failure with Lasix administration however despite this he has continued to gain weight noting that he is gained 6 pounds over the last 2 days alone with plannedoutpatient PCP with repeat labs today prior however given his worsened status PCP recommended presented to the ED for evaluation. PCP did perform an ou tpatient BNP that was noted to be 8957. He notes that he has gained approximately 50 pounds over the last couple months. Workup in the ED included T98.7, heart rate 66, BP 104/89, respiratory rate 18, 90% on room air with most recent repeat vitals heart rate 130, BP 107/85, respiratory rate 23, 94%room air, CBC w/ WBC 7.8, Hgb 16.1, Plts 87 without shift, BMP with chloride 93, BUN/creatinine 25/1.50, GFR 49, glucose 108, CXR with mild cephalization, mild blunting BL bases however final read pending per radiology, EKG with atrial fibrillation with RVR. In ED patient ministered metoprolol 5 mgIV x 1, digoxin 250 mcg IV x 1. BP did improve therefore per discussion with the patient currently being to cardizem drip given no marked change in rate. [facility] Medical History PAF (paroxysmal atrial fibrillation) CKD (chronic kidney disease), stage II Thrombocytopenia COPD (chronic obstructive pulmonary disease) Morbid obesity HLD (hyperlipidemia) HTN (hypertension) Tobacco use Anxiety and depression Cancer Home Medications ?Medication ?Instructions ?Recorded ?Last Taken ?Type lisinopril 20 mg tablet 20 mg PO QDAY hyperte 07/02/18 05:30 History albuterol sulfate 90 mcg/actuation 2 puff inhalation 4 X/DAY PRN PRN 03/20/25 Unknown History aerosol inhaler shortness of breath or wheez ing apixaban 5 mg tablet (Eliquis) 5 mg PO BID t 03/20/25 Unknown History furosemide 20 mg tablet 20 mg PO BID PRN water pill 03/20/25 Unknown History metoprolol tartrate 50 mg tablet 50 mg PO BID hyperten sandi 03/20/25 Unknown History Allergy/AdvReac Type Severity Reaction Status Date / Time sertraline (From Zoloft) Allergy Other Verified 03/20/25 17:24 Family History Father History of blood clots Lupus Bowel disease Colon cancer Skin cancer CVA (cerebral vascular accident) Mother Hypertension Surgical History History of appendectomy Social History (Updated 03/20/25 @ 20:[address] Sophia Lowe MD) household members: spouse Smoking Status: Current some day smoker tobacco type: cigarettes alcohol intake: never substance use type: does not use additional social history: DOES USE ASPIRIN ROS ROS Narrative Admission Review of Systems: CONSTITUTIONAL: No weight loss, fever, chills, + weakness or fatigue. HEENT: Eyes: No visual loss, blurred vision, double vision or yellow sclerae. Ears, Nose, Throat: No hearing loss, sneezing, congestion, runny nose or sore throat. SKIN: No rash or itching, lesions, wounds. CARDIOVASCULAR: + Dyspnea, orthopnea, edema, weight gain. No palpitations, syncopal events. RESPIRATORY: + Dyspnea, worse with exertion. No wheezing, hemoptysis. GASTROINTESTINAL: No anorexia, nausea, vomiting or diarrhea, abdominal pain, melena, BRBPR. GENITOURINARY: No dysuria, frequency, urgency or retention. NEUROLOGICAL: No headache, dizziness, syncope, paralysis, ataxia, numbness or tingling in the extremities, focal weakness, change in bowel or bladder control,seizure. MUSCULOSKELETAL: + muscle, back pain, joint pain or stiffness. HEMATOLOGIC: No anemia. + Easy bleeding/bruising. LYMPHATICS: No enlarged nodes. No history of splenectomy. PSYCHIATRIC: + History of anxiety and depression. ENDOCRINOLOGIC: No reports of sweating, cold or heat intolerance. No polyuria orpolydipsia. ALLERGIES: + History of allergic rhinitis. Vital Signs Vital Signs Vital Signs: 03/20/25 17:24 03/20/25 17:25 03/20/25 18:06 Temperature 98.7 F Temperature Source Oral Pulse Rate 66 61 Respiratory Rate 18 12 Respiratory Pattern Normal Blood Pressure 104/89 H Blood Pressure Mean 94 Blood Pressure Source Pulse Ox 98 95 Oxygen Delivery Method Room Air Room Air 03/20/25 18:30 03/20/25 19:00 03/20/25 19:42 Temperature Temperature Source Pulse Rate 120 H 130 H 125 H Respiratory Rate 23 H 23 H 18 Respiratory Pattern Blood Pressure 95/82 H 107/85 H 128/57 H Blood Pressure Mean 86 92 80 Blood Pressure Source Monitor Pulse Ox 94 97 Oxygen Delivery Method Room Air Weight Weight: 267 lb 3.2 oz Body Mass Index (BMI) 39.4 Physical Exam Narrative Physical Examination: General: Awake, alert, oriented x 3 and cooperative, seated upright in the ED bed, fatigued. Skin: Normal color, normal turgor, no icterus, no cyanosis except occasional stage ecchymoses, abrasion, significant lichenification of the lower extremities, bilateral lower extremity chronic venousstasis skin changes. HEENT: AT/NC, EOMI, PERRLA, mildly dry oropharynx, no carotid bruits, difficult to discern JVD given thickened neck. Or JVD noted. Lungs: Diminished, greater bases, no marked rales evident, no evidence of any distress, no rhonchi or wheezing. Heart: Irregular irregular, improving from initial arrival however; no gallop, rub audible. Abdomen: Soft, morbidly obese, NTTP, distant BS, difficult to discern distentionand HSM given habitus. Extremities: No cyanosis, no clubbing, significant pedal to lower abdominal 2- 3+pitting edema. Neurological: Patient awake, alert, oriented as noted, cognitive function intact; pupils equally reactive to light and accommodation, cranial nerves grossnormal, moving all 4 extremities, no focal deficits, strength moderately to severely globally decreased secondary to acute presentation. Psychiatric: Affect appears fatigued, no acute evidence of depressive or anxietyfeelings. Results Lab / Micro Data 03/20/25 17:33 03/20/25 17:33 Labs: Laboratory Results - last 24 hr 03/20/25 17:33: WBC 7.8, RBC 5.11, Hgb 16.1, Hct 48.7, MCV 95.3 H, MCH 31.5, MCHC 33.1, RDW Std Deviation 53.7 H, RDW Coeff of Hair 15.2 H, Plt Count 87 L, MPV 11.3, Immature Gran % (Auto) 0.400, Neut% (Auto) 58.4, Lymph % (Auto) 31.0,[place] % (Auto) 9.7, Eos % (Auto) 0.4, Baso % (Auto) 0.1, AbsoluteNeuts (auto) 4.5, Absolute Lymphs (auto) 2.40, Nucleated RBC % 0, Platelet Estimate MOD DEC, Polychromasia 1+, Anisocytosis 1+, Sodium 133, Potassium 4.3, Chloride 93 L, Carbon Dioxide 30.7, Anion Gap 10, BUN 25 H, Creatinine 1.50 H, Estim Creat Clear Calc 58.08, Est GFR (MDRD) Non-Af 49 L, BUN/Creatinine Ratio 16.9, [id number] H, Calcium 8.1 Assessment & Plan Assessment/Plan (1) Acute systolic CHF (congestive heart failure): (2) Atrial fibrillation with RVR: PLAN: Plan The patient is a 69 y/o M w/ PMHx: Morbid obesity, HTN, HLD, Anxiety and Depression, COPD, Tobacco use, HFrEF, PAF who presents to the [facility] ED on 03/20/2025 with history of approximately 4 weeks of progressively worsening dyspnea, worse with exertion, bilateral lower extremity swelling and weight gain as well as orthopnea with PCP evaluation with suspicion for heart failure with Lasix administration however despite this he has continued to gain weight noting that he is gained 6 pounds over the last 2 days alone with plannedoutpatient PCP with repeat labs today prior however given his worsened status PCP recommended presented to the ED for evaluation. #1. Acute Decompensated HFrEF complicated by #2: Will admit to PCU, maintain oncardiac telemetry, obtain cardiac enzyme series, obtain serial EKGs, maintain asBP allows on IV lasix diuresis with lower dose drip, monitor I/Os, maintain on intake restriction, continue medical therapy with Eliquis, Cardizem drip as noted with transition to metoprolol as able, not on statin therapy with FLP requested, obtain TSH and magnesium level, echocardiogram quested, will place neck sydnee wraps with lower extremity elevation. Temporarily holding lisinopril as noted. #2. Paroxsymal atrial fibrillation w/ RVR: EKG in ED w/ atrial fibrillation w/ RVR. Patient administered Lopressor 5 mg IV x 1 and digoxin to 150 mcg IV x 1 inED. Will maintain on telemetry, obtain cardiac enzyme serial set, obtain magnesium level, obtain ECHO, obtain TSH level. Will continue Cardizem drip admission in the ED with transition to metoprolol as able, continue home Eliquisregimen. #3. Acute kidney injury on CKD stage II per previous GFR trending: Secondary to#1, #2 and recent possible Lasix increase. Admission BUN/Cr 25/1.50, GFR 49, prior baseline creatinine noted to be 03/18/2025 creatinine 1.21 and previous to this on 03/03/2025 creatinine 1.06 however baseline noted prior to even this was 0.8-0.9 primarily. Given current presentation will continue to require diuresisas able, will temporarily hold lisinopril, add back once clinically appropriate. #4. Thrombocytopenia, unclear if chronic: Unclear etiology, admission Plts 87, prior 03/03/25 Plts 100, cautiously continue eliquis, continue to trend CBC. #5. Chronic COPD: Not on chronic regimen per current list, will maintain on ATCipratropium regimen,PRN albuterol only if absolutely necessary given PAF with RVR, HOB, IS parameters. #6. Hypertension: Continue home regimen including IV Cardizem drip as noted, IVLasix PRN hydralazine. Temporarily holding lisinopril as noted. Add back metoprolol as able. #7. Hyperlipidemia: Not on regimen, no allergy listed, FLP in AM. #8. Tobacco Abuse: Encouraged cessation, inpatient consultation per RT, NR if desired. #9. Morbid Obesity: Weight loss and lifestyle changes encouraged. #10. Anxiety and depression: Per current list patient is only on lorazepam as needed however clarifying as this may be remote. #11. DVT prophylaxis: Continue home Eliquis regimen. #12. CODE status: Patient HCPOA and living will are not in place but his who is present he notes would be his medical decision-maker if necessary. Discussed CODE status at length including difference between FULL code, DNR-CCA and DNR-CC status. Following discussions about the differences in these status, requested Full Code status. Advanced Care Planning Face to Face Time: 16 minutes. Charges/Coding Visit Charges Inpatient E&M: 37858 Init Hosp L3 Procedures Hospitalists Procedures: 91385 Advncd Care Plan 30 Min 03/20/252045 Cosigner Signature (if applicable): CC: Dr. Sophia Lowe MD; Dr. Lee Mathews MD~ Signed [facility]05-01-2025 Radiology Diagnostic study note [facility] Imaging Services [address] [place] [address] [id number] Chest PA and Lateral MR#: [id number] Acct: [id number] Name: KELVIN HERNANDEZ Jr. Rep #: [id number] : 1955 M 69 From: Filomena Mosher MD PCP: Dr. Lee Mathews MD Status: REG ER Study:Chest PA and Lateral Date of Exam: 03/20/25 Exam# [id number] Ordering Dr: Roselia Nieves PROCEDURE: CHEST PA AND LATERAL 03/20/2025 REASON FOR EXAM: SOB TECHNIQUE: Frontal and lateral views of the chest. COMPARISON: CT chest 12/05/2018 and chest radiograph 03/03/2025 FINDINGS: Hardware: None Heart: Heart size is mildly enlarged. Mediastinum: The mediastinal contour is unremarkable. Lungs: Mild interstitial thickening. Bibasilar atelectasis. No pneumothorax. No focal consolidation. Bones: Degenerative changes are identified within the thoracic spine. RAD/Chest PA and Lateral IMPRESSION: Findings suggestive of vascular congestion. Reading Location: [facility] CC: Dr. Lee Mathews MD; FELICIA Murillo ~ [employer] Consultant: Signed [facility]04-15-2025 Radiology Diagnostic study note [facility] Imaging Services [address] [place] [address] Chest PA and Lateral MR#: [id number] Acct: [id number] Name: KELVIN HERNANDEZ Jr. Rep #: [id number] : 1955 M 69 From: Isidro Viveros MD PCP: Dr. Lee Mathews MD Status: REG CLI Study:Chest PA and Lateral Date of Exam: 03/03/25 Exam# [id number] Ordering Dr: Brooke Mathews MD PROCEDURE: CHEST PA AND LATERAL 03/03/2025 REASON FOR EXAM: COPD TECHNIQUE: Frontal and lateral views of the chest. COMPARISON: None FINDINGS: The lungs are expanded. There is no demonstrated parenchymal abnormality. There is no demonstrated pleural abnormality. The heart is upper limits of normal in size. Normal mediastinum and jeremías. Normal visualized pulmonary arteries. The aorta is calcified. Normal visualized thoracic spine. Normal visualized ribs, clavicles, and shoulders. There is no demonstrated abnormality of the visualized soft tissue structures ofthe upper abdomen. RAD/Chest PA and Lateral IMPRESSION: Normal x-ray examination of the chest. IMPRESSION: Borderline cardiomegaly. No evidence of active or chronic tuberculosis. Reading Location: [place] [address] CC: Dr. Lee Mathews MD ~ [employer] Consultant: [facility]igned [facility] noteNo assessment information available [facility] Work Phone: Reason for referral (narrative)No reason for referral information availableWOhioHealth [facility] Work Phone: Family History No Family History Records Found Relationship Condition Age at Onset Recorded Date/T jose father History of blood clots Unknown Lupus erythematosus Unknown Disorder of intestine Unknown Malignant neoplasm of colon Unknown Malignant neoplasm of skin Unknown Cerebrovascular accident (CVA) Unknown mother Hypertension Unknown Advance Directives No Advanced Directives Records Found Advance Directive Response Recorded Date/ Time Living Will No November 13 4:00pm Power of Leno Sewer No November 13, 2021 4:00pm Advance Directive Response Recorded Date/ Time Do you have a Healthcare Power of Leno Sewer? No March 20, 2025 8:23pm Chief Complaint and Reason for Visit Chief Complaint Admit Date HF EXAC, PAF RVR March 20, 2025 7:54pm HF EXAC PAF RVR March 20, 2025 8:05pm HF EXAC, PAF RVR March 21, 2025 10:16a m HF EXAC, PAF RVR March 22, 2025 9:12am HF EXAC, PAF RVR March 22, 2025 4:20pm HF EXAC, PAF RVR March 23, 2025 8:14am HF EXAC, PAF RVR March 23, 2025 3:14pm Referral Order March 24, 2025 8:49am HF EXAC, PAF RVR March 24, 2025 2:24pm HF EXAC, PAF RVR March 25, 2025 8:22am HF EXAC, PAF RVR March 25, 2025 4:26pm HF EXAC, PAF RVR March 26, 2025 9:25am HF EXAC, PAF RVR March 26, 2025 5:16pm HF EXAC, PAF RVR March 27, 2025 8:59am HF EXAC, PAF RVR March 27, 2025 11:13a m Reason for Visit Admit Date Acute systolic CHF (congestive heart patricia lure) March 20, 2025 7:54pm Atrial fibrillation with RVR March 20 7:54pm Cardiac LV ejection fraction 10-20% March 20, 2025 7:54pm Dyspnea March 20, 2025 7:54pm History of COPD March 20, 2025 7:54pm Smoker March 20, 2025 7:54pm Chief Complaint Admit Date HF EXAC, PAF RVR March 20, 2025 7:54pm HF EXAC PAF RVR March 20, 2025 8:05pm HF EXAC, PAF RVR March 21, 2025 10:16a m HF EXAC, PAF RVR March 22, 2025 9:12am HF EXAC, PAF RVR March 22, 2025 4:20pm HF EXAC, PAF RVR March 23, 2025 8:14am HF EXAC, PAF RVR March 23, 2025 3:14pm Referral Order March 24, 2025 8:49am HF EXAC, PAF RVR March 24, 2025 2:24pm HF EXAC, PAF RVR March 25, 2025 8:22am HF EXAC, PAF RVR March 25, 2025 4:26pm HF EXAC, PAF RVR March 26, 2025 9:25am HF EXAC, PAF RVR March 26, 2025 5:16pm HF EXAC, PAF RVR March 27, 2025 8:59am HF EXAC, PAF RVR March 27, 2025 11:13a m [facility] 03/27 CHF April 03, 2025 1:34p m Reason for Visit Admit Date Acute systolic CHF (congestive heart patricia lure) March 20, 2025 7:54pm Atrial fibrillation with RVR March 20 7:54pm Cardiac LV ejection fraction 10-20% March 20, 2025 7:54pm Dyspnea March 20, 2025 7:54pm History of COPD March 20, 2025 7:54pm Smoker March 20, 2025 7:54pm Atrial fibrillation with RVR April 03, 2 025 1:34pm Dyspnea April 03, 2025 1:34p m Chief Complaint Admit Date HF EXAC, PAF RVR March 20, 2025 7:54pm HF EXAC PAF RVR March 20, 2025 8:05pm HF EXAC, PAF RVR March 21, 2025 10:16a m HF EXAC, PAF RVR March 22, 2025 9:12am HF EXAC, PAF RVR March 22, 2025 4:20pm HF EXAC, PAF RVR March 23, 2025 8:14am HF EXAC, PAF RVR March 23, 2025 3:14pm Referral Order March 24, 2025 8:49am HF EXAC, PAF RVR March 24, 2025 2:24pm HF EXAC, PAF RVR March 25, 2025 8:22am HF EXAC, PAF RVR March 25, 2025 4:26pm HF EXAC, PAF RVR March 26, 2025 9:25am HF EXAC, PAF RVR March 26, 2025 5:16pm HF EXAC, PAF RVR March 27, 2025 8:59am HF EXAC, PAF RVR March 27, 2025 11:13a m [facility] 03/27 CHF April 03, 2025 1:34p m EORDER April 03, 2025 3:33p m Reason for Visit Admit Date Acute systolic CHF (congestive heart patricia lure) March 20, 2025 7:54pm Atrial fibrillation with RVR March 20 7:54pm Smoker March 20, 2025 7:54pm Dyspnea March 20, 2025 7:54pm Cardiac LV ejection fraction 10-20% March 20, 2025 7:54pm History of COPD March 20, 2025 7:54pm Atrial fibrillation with RVR April 03, 025 1:34pm Hypersomnolence April 03, 2025 1:34p m Dyspnea April 03, 2025 1:34p m Cardiac LV ejection fraction 10-20% April 03, 2025 1:34pm Summary Purpose Additional Source Comments Care Teams (unrecognized sec tion and content) Team Status: Active Member Role Status Dates Dr. Uzair Mathews MD Family Provider Active Dr. Uzair Mathews MD Primary Care Provider Activ e Team Status: Inactive Member Role Status Dates Dr. Uzair Mathews MD Primary Care Provider, Atte nding Provider Active Team Status: Active Member Role Status Dates Dr. Lee Mathews MD Primary Care Provider Acti ve Team Status: Inactive Member Role Status Dates Dr. Lee Mathews MD Primary Care Provider Acti ve Start: March 03, 2025 End: March 03, 2025 Dr. Lee Mathews MD Attending Provider Active Start: March 03, 2025 End: March 03, 2025 Dr. Lee Mathews MD Referring Provider Active Start: March 03, 2025 End: March 03, 2025 Team Status: Inactive Member Role Status Dates Dr. Lee Mathews MD Primary Care Provider Acti ve Start: March 18, 2025 End: March 18, 2025 Dr. Lee Mathews MD Attending Provider Active Start: March 18, 2025 End: March 18, 2025 Dr. Lee Mathews MD Referring Provider Active Start: March 18, 2025 End: March 18, 2025 Team Status: Inactive Member Role Status Dates Dr. Lee Mathews MD Primary Care Provider Acti ve Start: March 20, 2025 End: March 27, 2025 Dr. Dae Mckeon MD Emergency Provider Active Start: March 20, 2025 End: March 27, 2025 Dr. Sophia Lowe MD Admit Provider Active St art: March 20, 2025 End: March 27, 2025 Dr. Sophia Lowe MD Other Provider Active St art: March 20, 2025 End: March 27, 2025 Dr. Krissy Freitas MD Other Provider Active Star t: March 20, 2025 End: March 27, 2025 Dr. Derrick Chacon MD Attending Provider Active Start: March 20, 2025 End: March 27, 2025 Dr. Stanley Craig MD Other Provider Active Star t: March 20, 2025 End: March 27, 2025 Team Status: Active Member Role Status Dates Dr. Lee Mathews MD Primary Care Provider Acti ve Start: March 20, 2025 Dr. Dae Mckeon MD Emergency Provider Active Start: March 20, 2025 Dr. Sophia Lowe MD Admit Provider Active St art: March 20, 2025 Dr. Sophia Lowe MD Attending Provider Active Start: March 20, 2025 Dr. Sophia Lowe MD Other Provider Active St art: March 20, 2025 Team Status: Active Member Role Status Dates Dr. Lee Mathews MD Primary Care Provider Acti ve Start: March 21, 2025 Dr. Krissy Freitas MD Attending Provider Active Start: March 21, 2025 Team Status: Active Member Role Status Dates Dr. Lee Mathews MD Primary Care Provider Acti ve Start: March 21, 2025 Dr. aDe Mckeon MD Emergency Provider Active Start: March 21, 2025 Dr. Sophia Lowe MD Admit Provider Active St art: March 21, 2025 Dr. Sophia Lowe MD Other Provider Active St art: March 21, 2025 Dr. Stanley Craig MD Attending Provider Active Start: March 21, 2025 Dr. Stanley Craig MD Other Provider Active Star t: March 21, 2025 Team Status: Active Member Role Status Dates Dr. Lee Mathews MD Primary Care Provider Acti ve Start: March 22, 2025 Dr. Dae Mckeon MD Emergency Provider Active Start: March 22, 2025 Dr. Sophia Lowe MD Admit Provider Active St art: March 22, 2025 Dr. Sophia Lowe MD Other Provider Active St art: March 22, 2025 Dr. Stanley Craig MD Attending Provider Active Start: March 22, 2025 Dr. Stanley Craig MD Other Provider Active Star t: March 22, 2025 Dr. Krissy Freitas MD Other Provider Active Star t: March 22, 2025 Team Status: Active Member Role Status Dates Dr. Lee Mathews MD Primary Care Provider Acti ve Start: March 22, 2025 Dr. Dae Mckeon MD Emergency Provider Active Start: March 22, 2025 Dr. Sophia Lowe MD Admit Provider Active St art: March 22, 2025 Dr. Sophia Lowe MD Other Provider Active St art: March 22, 2025 Dr. Stanley Craig MD Other Provider Active Star t: March 22, 2025 Dr. Krissy Freitas MD Attending Provider Active Start: March 22, 2025 Dr. Krissy Freitas MD Other Provider Active Star t: March 22, 2025 Team Status: Active Member Role Status Dates Dr. eLe Mathews MD Primary Care Provider Acti ve Start: March 23, 2025 Dr. Dae Mckeon MD Emergency Provider Active Start: March 23, 2025 Dr. Sophia Lowe MD Admit Provider Active St art: March 23, 2025 Dr. Sophia Lowe MD Other Provider Active St art: March 23, 2025 Dr. Stanley Craig MD Attending Provider Active Start: March 23, 2025 Dr. Stanley Craig MD Other Provider Active Star t: March 23, 2025 Dr. Krissy Freitas MD Other Provider Active Star t: March 23, 2025 Team Status: Active Member Role Status Dates Dr. Lee Mathews MD Primary Care Provider Acti ve Start: March 23, 2025 Dr. Dae Mckeon MD Emergency Provider Active Start: March 23, 2025 Dr. Sophia Lowe MD Admit Provider Active St art: March 23, 2025 Dr. Sophia Lowe MD Other Provider Active St art: March 23, 2025 Dr. Stanley Craig MD Other Provider Active Star t: March 23, 2025 Dr. Krissy Freitas MD Attending Provider Active Start: March 23, 2025 Dr. Krissy Freitas MD Other Provider Active Star t: March 23, 2025 Team Status: Active Member Role Status Dates Dr. Lee Mathews MD Primary Care Provider Acti ve Start: March 24, 2025 Dr. Carlton Keyes MD Attending Provider Active S tart: March 24, 2025 Team Status: Active Member Role Status Dates Dr. Lee Mathews MD Primary Care Provider Acti ve Start: March 24, 2025 Dr. Dae Mckeon MD Emergency Provider Active Start: March 24, 2025 Dr. Sophia Lowe MD Admit Provider Active St art: March 24, 2025 Dr. Sophia Lowe MD Other Provider Active St art: March 24, 2025 Dr. Krissy Freitas MD Other Provider Active Star t: March 24, 2025 Dr. Derrick Chacon MD Attending Provider Active Start: March 24, 2025 Dr. Derrick Chacon MD Other Provider Active Sta rt: March 24, 2025 Dr. Stanley Craig MD Other Provider Active Star t: March 24, 2025 Team Status: Active Member Role Status Dates Dr. Lee Mathews MD Primary Care Provider Acti ve Start: March 25, 2025 Dr. Dae Mckeon MD Emergency Provider Active Start: March 25, 2025 Dr. Sophia Lowe MD Admit Provider Active St art: March 25, 2025 Dr. Sophia Lowe MD Other Provider Active St art: March 25, 2025 Dr. Krissy Freitas MD Other Provider Active Star t: March 25, 2025 Dr. Derrick Chacon MD Other Provider Active Sta rt: March 25, 2025 Dr. Stanley Craig MD Other Provider Active Star t: March 25, 2025 Dr. Madhu Bautista MD Attending Provider Active Start: March 25, 2025 Team Status: Active Member Role Status Dates Dr. Lee Mathews MD Primary Care Provider Acti ve Start: March 25, 2025 Dr. Dae Mckeon MD Emergency Provider Active Start: March 25, 2025 Dr. Sophia Lowe MD Admit Provider Active St art: March 25, 2025 Dr. Sophia Lowe MD Other Provider Active St art: March 25, 2025 Dr. Krissy Freitas MD Other Provider Active Star t: March 25, 2025 Dr. Derrick Chacon MD Attending Provider Active Start: March 25, 2025 Dr. Derrick Chacon MD Other Provider Active Sta rt: March 25, 2025 Dr. Stanley Craig MD Other Provider Active Star t: March 25, 2025 Team Status: Active Member Role Status Dates Dr. Lee Mathews MD Primary Care Provider Acti ve Start: March 26, 2025 Dr. Dae Mckeon MD Emergency Provider Active Start: March 26, 2025 Dr. Sophia Lowe MD Admit Provider Active St art: March 26, 2025 Dr. Sophia Lowe MD Other Provider Active St art: March 26, 2025 Dr. Krissy Freitas MD Other Provider Active Star t: March 26, 2025 Dr. Derrick Chacon MD Other Provider Active Sta rt: March 26, 2025 Dr. Stanley Craig MD Other Provider Active Star t: March 26, 2025 Dr. Madhu Bautista MD Attending Provider Active Start: March 26, 2025 Team Status: Active Member Role Status Dates Dr. Lee Mathews MD Primary Care Provider Acti ve Start: March 26, 2025 Dr. Dae Mckeon MD Emergency Provider Active Start: March 26, 2025 Dr. Sophia Lowe MD Admit Provider Active St art: March 26, 2025 Dr. Sophia Lowe MD Other Provider Active St art: March 26, 2025 Dr. Krissy Freitas MD Other Provider Active Star t: March 26, 2025 Dr. Derrick Chacon MD Attending Provider Active Start: March 26, 2025 Dr. Derrick Chacon MD Other Provider Active Sta rt: March 26, 2025 Dr. Stanley Craig MD Other Provider Active Star t: March 26, 2025 Team Status: Active Member Role Status Dates Dr. Lee Mathews MD Primary Care Provider Acti ve Start: March 27, 2025 Dr. Dae Mckeon MD Emergency Provider Active Start: March 27, 2025 Dr. Sophia Lowe MD Admit Provider Active St art: March 27, 2025 Dr. Sophia Lowe MD Other Provider Active St art: March 27, 2025 Dr. Krissy Freitas MD Other Provider Active Star t: March 27, 2025 Dr. Derrick Chacon MD Other Provider Active Sta rt: March 27, 2025 Dr. Stanley Craig MD Other Provider Active Star t: March 27, 2025 Dr. Madhu Bautista MD Attending Provider Active Start: March 27, 2025 Team Status: Active Member Role Status Dates Dr. Lee Mathews MD Primary Care Provider Acti ve Start: March 27, 2025 Dr. Dae Mckeon MD Emergency Provider Active Start: March 27, 2025 Dr. Sophia Lowe MD Admit Provider Active St art: March 27, 2025 Dr. Sophia Lowe MD Other Provider Active St art: March 27, 2025 Dr. Krissy Freitas MD Other Provider Active Star t: March 27, 2025 Dr. Derrick Chacon MD Attending Provider Active Start: March 27, 2025 Dr. Derrick Chacon MD Other Provider Active Sta rt: March 27, 2025 Dr. Stanley Craig MD Other Provider Active Star t: March 27, 2025 Team Status: Inactive Member Role Status Dates Dr. Lee Mathews MD Primary Care Provider Acti ve Start: April 03, 2025 End: April 03, 2025 Dr. Lee Mathews MD Referring Provider Active Start: April 03, 2025 End: April 03, 2025 Ariane Perez [facility] Attending Provider Active Start: April 03, 2025 End: April 03, 2025 Team Status: Inactive Member Role Status Dates Dr. Lee Mathews MD Primary Care Provider Acti ve Start: April 03, 2025 End: April 03, 2025 Ariane Perez [facility] Attending Provider Active Start: April 03, 2025 End: April 03, 2025 Ariane Perez NP, [facility] Referring Provider Active Start: April 03, 2025 End: April 03, 2025 Goals (unrecognized section and content) Goals may be documented in a n alternate sectionGoals may be documented in an alternate section (unrecognized sect ion and content) No Status Records Found INFORMATION SOURCE (unrecogn ized section and content) DATE CREATED AUTHOR 04/27/2025 [facility] FOR RECORDS PERTAINING TO PATIENTS WHO ARE OR HAVE BEEN ENROLLED IN A CHEMICAL DEPENDENCY/SUBSTANCEABUSE PROGRAM, SOME INFORMATION MAY BE OMITTED. This clinical summary was aggregated from multiple sources. Caution should be exercised in using it in the provision of clinical care. This summary normalizes information from multiple sources, and as a consequence, information in this document may materially change the coding, format and clinical context of patient data. In addition, data may be omitted in some cases. CLINICAL DECISIONS SHOULD BE BASED ON THE PRIMARY CLINICAL RECORDS. [employer] [facility]. provides no warranty or guarantee of the accuracy or completeness of information in this document.
== END | disposition home or self-care (01) ==
LOC: CR 12:56
PROVIDERS: PCP Family Medicine; Referring Provider Internal Medicine Cardiovascular Disease; Visit Provider Internal Medicine Cardiovascular Disease
DX: I13.0 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 1 through stage 4 chronic kidney disease, or unspecified chronic kidney disease (principal); I50.9 Heart failure, unspecified; J44.9 Chronic obstructive pulmonary disease, unspecified; I48.0 Paroxysmal atrial fibrillation; E66.9 Obesity, unspecified; N18.2 Chronic kidney disease, stage 2 (mild); F17.290 Nicotine dependence, other tobacco product, uncomplicated; Z79.01 Long term (current) use of anticoagulants; Z68.34 Body mass index [BMI] 34.0-34.9, adult; Z79.899 Other long term (current) drug therapy

== ENCOUNTER 2025-05-05 10:24 | Day surgery (SDC) | payer MEDICARE, SELFPAY ==
--- NOTE | 2025-05-01 12:59 | HP.PCM_ITS ---
History and Physical Date of Admission: 05/05/25 This is a 69-year-old male, who presents today for a cardioversion. Patient presented to the emergency room on 03/20/2025 with complaints of shortness of breath, bilateral leg swelling. His BNP was elevated at 8957. His EKG demonstrated A-fib with RVR. He was admitted for further evaluation. He did undergo an echocardiogram on 03/21/2025 which demonstrated a decreased ejection fraction of 10 to 15%, moderately dilated right ventricle, and mildly enlarged left and right atrium. He underwent a cardiac catheterization on 03/24/2025 which demonstrated normal coronary arteries. He was started on guideline directed medical therapy, and discharged home to follow-up with cardiology. From a cardiac standpoint, the patient is doing well. He denies any palpitations, chest pain, pressure or heaviness. He does have occasional SOB with exertion, and stress. He does acknowledge orthopnea. He denies PND. He does not have bleeding issues; no blood in urine, stool, or nosebleeds. He does acknowledge a decrease in energy level. He denies myalgias, or claudication. He does acknowledge bilateral lower extremity edema, and weight gain. He denies lightheadedness, dizziness, syncopal or near syncopal episodes, and headaches. Intake Vital Signs See EMR Allergies See EMR Medications See EMR [facility] Medical History PAF (paroxysmal atrial fibrillation) CKD (chronic kidney disease), stage II Thrombocytopenia COPD (chronic obstructive pulmonary disease) Morbid obesity HLD (hyperlipidemia) HTN (hypertension) Tobacco use Anxiety and depression Cancer Surgical History History of appendectomy Family History History of blood clots Lupus Bowel disease Colon cancer Skin cancer CVA (cerebral vascular accident)Mother Hypertension Social History household members: spouse Smoking Status: Current some day smoker tobacco type: cigarettes alcohol intake: never substance use type: does not use additional social history: DOES USE ASPIRIN ROS Const Const: Positive for fatigue and weakness; Negative for headache(s) or frequent falls Eyes Eyes: Negative for blurry vision ENT ENT: Negative for headache(s), dizziness or Nosebleed/epistaxis Cardio Chest Pain: No Palpitations: No Edema: Bilateral Muscle aches with walking: None Resp Respiratory: Positive for SOB with activity and SOB at rest; Negative for SOB orthopnea\SOB lying down GI GI: Negative nausea, vomiting, heartburn, bright, red blood in stools or black,tarry stools : Negative for hematuria Neuro Neuro: Positive for weakness; Negative for dizziness, lightheadedness, near syncope, syncope, frequent falls, headache(s) or blurry vision Endo Endo: Positive for fatigue Cardiology Exam Const Appearance: cooperative and no acute distress Nutritional Appearance: obese Orientation: alert and oriented x3 Head Head: normal to inspection Ears: hearing grossly normal bilaterally Nose: external nose normal Face and Sinus: face symmetric Eyes General: appearance normal, both eyes and all related structures Eyelids: eyelids normal Conjunctivae: conjunctivae normal Pupils: PERRL and pupil size EOM: EOM intact bilaterally Neck Neck: normal visual inspection Carotids: Negative bruit Chest Chest inspection: normal inspection of the chest and normal respiratory effort Auscultation: Bilateral: Diminished Lung Sounds Cardio Palpation: normal PMI Rhythm: irregularly irregular Heart sounds: S1 normal and S2 normal; Negative rub, gallop or murmur GI GI: normal to inspection, soft and obese; Negative no hepatosplenomegaly Neuro General: patient alert and patient oriented x3 Skin Skin: no rashes or lesions noted Extremities Pulses: Normal: Right Posterior Tibial Pulse, Left Posterior Tibial Pulse, Right Radial Pulse and Left Radial Pulse Lower Extremity Edema: +1: Bilateral Psych Psychological: normal affect Supplemental Info Supplemental Information Echocardiogram 03/21/2025: Interpretation Summary The estimated ejection fraction is 10-15 %. Moderate concentric left ventricular hypertrophy. Moderate global right ventricular systolic dysfunction. Moderately dilated right ventricle. The left atrium is mildly enlarged. The right atrium is mildly enlarged. Mild (1+) mitral valve insufficiency. Mild (1+) eccentric tricuspid valve insufficiency. Cardiac catheterization 03/24/2025: CONCLUSIONS Normal coronary arteries Cardiomyopathy: Dilated RECOMMENDATIONS Medical therapy Assessment and Plan Assessment and Plan (1) Atrial fibrillation with RVR: Status: Acute Plan: Patient has a history of atrial fibrillation. This is newer. His EKG demonstrated atrial fibrillation, frequent PVCs, heart rate 84 bpm. His echocardiogram from 03/21/2025 demonstrated ejection fraction of 10 to 15%, and mildly enlarged left and right atrium. This was reviewed with patient. Did discuss with Dr. Keyes, and would like to proceed with cardioversion. Cardioversion instructions were reviewed with patient, he verbalizes understanding. He was instructed to not miss any doses of Eliquis. He will continue Eliquis 5 mg twice daily, digoxin 125 mcg daily, and metoprolol tartrate 100 mg twice daily. He will continue to monitor for any concerning symptoms of atrial fibrillation.
[2025-05-01 13:49] VITALS: BMI 34.2
[2025-05-02 08:23] VITALS: BMI 38.7
[2025-05-05 10:50] LABS: Hematocrit 51.1 % (40-54); Hemoglobin 17.3 g/dL (13.0-16.5); Mean Corp Hgb Conc 33.9 g/dL (32-36); Mean Corpuscular Hgb 31.4 pg (27.0-32.0); Mean Corpuscular Volume 92.7 fL (80-94); Mean Platelet Vol. 8.9 fl (6.2-12.0); Platelet Count 118 K/mm3 (150-450); RBC Distribution Width CV 14.2 % (11.6-14.6); RBC Distribution Width SD 48.4 fl (35.1-43.9); Red Blood Count 5.51 M/mm3 (4.6-6.2); White Blood Count 6.8 K/mm3 (4.4-11.0)
[2025-05-05 11:16] LABS: Anion Gap 10 (5-15); BUN 17 mg/dL (4-19); BUN/Creat Ratio 17.1 RATIO (10-20); Calcium,Total 8.8 mg/dL (7.6-11.0); Chloride 98 mmol/L (98-108); Creatinine, Serum 0.99 mg/dL (0.70-1.20); EST Glomerular Filtration Rate 81 (>60); Estimated Creatinine Clearance 84.51 ml/min (50-250); Glucose 100 mg/dL (70-99); Potassium 4.8 mmol/L (3.3-5.1); Sodium Level 134 mmol/L (133-145)
--- NOTE | 2025-05-05 12:50 | PCM.OP.PRO2 ---
Non-invasive Procedural Procedure Information Date of Procedure: 05/05/25 Pre-Procedure Diagnosis: Atrial Fibrillation Post-Procedure Diagnosis: same Procedure Performed:: DC cardioversion Procedure Time Out: :30 Procedure Start Time: 12:30 Procedure Stop Time: 12:35 Description of procedure: DC cardioversion The patient was brought to the cardiac catheterization lab in the postabsorptive nonsedated state. Informed consent was obtained. The patient was seen by Dr. Read of the critical care division. Anterior-posterior pads were applied. The patient was administered 6 mg of intravenous etomidate and then 300 J of synchronized DC cardioversion energy biphasic were applied with prompt reversal to sinus rhythm. Procedure findings: Successful cardioversion from atrial fibrillation to sinus rhythm. Follow-up as per office visit.
--- NOTE | 2025-05-05 12:59 | PCM.OP.PRO2 ---
Procedures Pulmonary Pulmonary Procedures /Diagnostic Testin Con Sedation Non-invasive Procedural Procedure Information Date of Procedure: 05/05/25 Description of procedure: CONSCIOUS SEDATION REPORT DATE OF SERVICE: May 05, 2025 BRIEF HISTORY OF PRESENT ILLNESS: The patient is a 69-year-old male who presented to [facility] to undergo an elective outpatient cardioversion due to underlying atrial fibrillation. The patient is systemically anticoagulated on Eliquis. His last surface echocardiogram demonstrated an ejection fraction of approximately 15%. The patient denied any prior anesthetic complications. He does report a history of COPD, but denies ever having been diagnosed with YONY. PHYSICAL EXAMINATION: VITAL SIGNS: Reviewed and were acceptable. GENERAL: The patient is a male, in no apparent distress, speaking in full sentences. HEENT: Normocephalic, atraumatic. Joey membranes are moist and pink. Good mouth opening noted. Trachea is midline. CHEST: S1, S2 irregularly irregular. No murmurs, rubs or gallops were noted. LUNGS: Clear to auscultation bilaterally without appreciable wheezes, rales or rhonchi. ABDOMEN: Soft, nontender, nondistended. Positive bowel sounds. EXTREMITIES: There is no clubbing, cyanosis or edema. Exfoliative dermatitis on trunk and extremities. ASA Class: II DESCRIPTION OF PROCEDURE: After confirmation of informed consent, the patient's anesthesia plan was reviewed in detail. Propofol was chosen. Risks and benefits were reviewed and the patient agreed to proceed. At 1231, the patient was given 6 mg of etomidate. The patient achieved an appropriate level of sedation and was given a 300 joule synchronized cardioversion by Dr. Keyes at the bedside. This was successful in achieving normal sinus rhythm. The patient was monitored until 1245, at which time he reached his baseline mental status and function. The patient tolerated the procedure well. COMPLICATIONS: None ESTIMATED BLOOD LOSS: None RECOMMENDATIONS: Okay to recover in usual fashion.
== END 2025-05-05 13:35 | disposition home or self-care (01) ==
PROVIDERS: PCP Family Medicine; Referring Provider Internal Medicine Cardiovascular Disease; Visit Provider Internal Medicine Cardiovascular Disease
DX: I48.0 Paroxysmal atrial fibrillation (principal); J44.9 Chronic obstructive pulmonary disease, unspecified; I12.9 Hypertensive chronic kidney disease with stage 1 through stage 4 chronic kidney disease, or unspecified chronic kidney disease; N18.2 Chronic kidney disease, stage 2 (mild); E78.5 Hyperlipidemia, unspecified; F17.210 Nicotine dependence, cigarettes, uncomplicated; Z79.01 Long term (current) use of anticoagulants
CPT/HCPCS: 36415; 80048; 85027; 92960; 93005

== ENCOUNTER 2025-05-19 15:15 | Outpatient (RCR) | payer MEDICARE, SELFPAY ==
[2025-05-01 13:49] VITALS: BMI 34.2
== END 2025-05-19 23:59 ==
LOC: CR 15:15
PROVIDERS: PCP Family Medicine; Referring Provider Internal Medicine Cardiovascular Disease; Visit Provider Internal Medicine Cardiovascular Disease
DX: R93.1 Abnormal findings on diagnostic imaging of heart and coronary circulation (principal); I48.91 Unspecified atrial fibrillation; R06.00 Dyspnea, unspecified; Z87.09 Personal history of other diseases of the respiratory system; F17.200 Nicotine dependence, unspecified, uncomplicated
CPT/HCPCS: 93798

== ENCOUNTER 2025-06-18 15:15 | Outpatient (RCR) | payer MEDICARE, SELFPAY ==
[2025-05-01 13:49] VITALS: BMI 34.2
--- NOTE | 2025-05-28 08:06 | CR.ITP_ITS ---
Exercise - Initial Assessment Visit Session #:: 8 Physician Prescribed Exercise Modalities: Treadmill, Schwinn Airdyne AD-7 and SciFit Stepper Nutrition - Initial Assessment Weight Mgt (Other Care) Height: 5 ft 8 in Weight:: 227 lb 8 oz BMI: 34.5 Core - Initial Assessment Tobacco Use Years Smokin (Pt smokes 1 cigar a day.) Psychosocial - Initial Assess Target Goals Target Goals Referral to Behavioral Health PS - Interventions: Yes: Attend Stress Management Classes Patient Health Questionnaire PHQ-9 Screening 30-Day Re-eval Assessment: 1. Little interest or pleasure in doing things: Not at all 2. Feeling down, depressed, or hopeless: Not at all 3. Trouble falling or staying asleep, or sleeping too much: Several days 4. Feeling tired or having little energy: Several days 5. Poor appetite or overeating: Not at all 6. Feeling bad about yourself -- or that you are a failure or have let yourself or your family down: Not at all 7. Trouble concentrating on things, such as reading the newspaper or watching television: Not at all 8. Moving or speaking so slowly that other people could have noticed. Or the opposite - being so fidgety or restless that you have been moving around a lot more than usual: Not at all 9. Thoughts that you would be better off , or of hurting yourself in some way: Not at all How difficult have these problems made it for you to do your work, take care of things at home, or get along with other people?: Somewhat difficult Total Score: 2 Self-Efficacy 6-Item Scale 30-Day Re-eval Assessment: We would like to know how confident you are in doing certain activities. Please select your confidence level for: Fatigue Select Number: 7 Physical Discomfort or Pain Select Number: 10 Emotional Distress Select Number: 9 Other Symptoms or Health Problems Select Number: 10 Different Tasks and Activities Select Number: 10 Medication Select Number: 10 Total Score:: 9 Nutrition Survey Nutrition Survey Instructions Scoring Instructions Exercise - 30-day Assessment Visit Date of Eval: 05/28/25 Session #:: 8 Physician Prescribed Exercise Modalities: Treadmill, Schwinn Airdyne AD-7 and SciFit Stepper Frequency: 3x/week for 12 weeks [36 sessions] Intensity: 60-80% of age predicted maximum heart rate reserve Duration: 30 - 45 minutes Current METSs:: 4.4 Target Heart Rate:: 89-112 Current RPE:: 12-12.5 Maximum Excercise HR:: 79 Resting Blood Pressure: 108/72 Maximum Exercise Blood Pressure: 112/70 EKG Type: SB to NSR w/occas PVC's short episode of bigeminy, rare PAC's Outcomes & Goals Goals:: Verbalizes understanding of THR, RPE & goal METS by session 6, Documents in home exercise log/reports 30 min aerobic 5 day/wk by DC, Demonstrates accurate pulse taking by DC and Other additional outcome/goals: see below Intervention & Plan Exercise Program Goals: Instruct on personal THR & RPE, Instruct on MET level & personal MET goal, Show patient to take own pulse /validate performance until accurate, Instruct on home exercise and Other additional plan/int Physical Activity Home Exercise Physical Activity - Home Exercise: Safe Exercise, Warm-up, Self-monitoring, Cool-Down, Home Exercise > 30 min Daily and Sitting Time <3 hours/daily Outcomes & Goals Outcomes/Goals: Demonstrates correct Warm-up/exercise Cool-Down (S3) if = 2.5 METs, Verbalizes symptoms of exercise intolerance by Session 3 (S3), Demonstrate safe equipment use (S3) & follows exercise prescrition (6) and Other: See below Intervention & Plan Plan/Intervention: Instruct warm-up & cool-down if exercising at > 2 METs, Instruct on symptoms of exercise intolerance & actions to take, Instruct & monitor on saf, Assess intial functional capacity & safety risk and Other See be low 30-day Reassessments 30 day Reassessments:: Progressing Reassessment Notes & Comments:: RPE explained to pt. Pt demonstrates understanding in his daily sessions. Exercise - 60-day Assessment Physician Prescribed Exercise Modalities: Treadmill, Schwinn Airdyne AD-7 and SciFit Stepper Exercise - 90-day Assessment Physician Prescribed Exercise Modalities: Treadmill, Schwinn Airdyne AD-7 and SciFit Stepper Exercise - Final/Discharge Physician Prescribed Exercise Modalities: Treadmill, Schwinn Airdyne AD-7 and SciFit Stepper Nutrition - 30-Day Assessment Program Goals Nutrition Program Goals Patient has diagnosis of Hyperlipidemia (ICD E78)?: No Visit Date of Eval: 05/28/25 Session #:: 8 Cholesterol/Lipids (Other Core Measures) Determine presence & major risk factors that modify LDL goal: Cigarette smoking, Hypertension or hypertensive medication, Low HDL cholesterol <40 mg/dL*, Family history of premature CHD in Male < 55 years: female <65 yearsFa and Age men > 45 years; women >/= 55 years Outcomes/Goals: Pt IDs own risk factors & lifestyle modifications by Session 10, Verbalizes symptoms of angina & response by session 3., Pt independently manages and Other Additional Outcomes/Goals: Intervention/Plan: Advocate for lipid panel cholesterol medication if applicable, Instruct on personal lipid levels & lipid goals/NCEP guidelines, Instruct on cholesterol and Other additional plan/int Diabetes (Other Core Measures) Diabetes Type: Not Applicable Weight Mgt (Other Care) Height: 5 ft 8 in Weight:: 227 lb 8 oz BMI: 34.5 Diagnosis Overweight/Obesity BMI> 30% ICD-10 E66: Yes Diagnosis High BMI/Morbid Obesity BMI> 35% ICD-10 Z68: No Outcomes/Goals: Pt sets, maintains & shows weight loss goal & trend during rehab and Other additional outcomes/goals Intervention/Plan: Instruct on ideal BMI & set weight loss goal w/patient, Assist pt to ID & incorporate diet changes for weight loss by S9, Refer to Structured Weight Loss program as appropriate, Encourage goal of using 250- 300dcal per session for weight loss and Other additional plan/interventions Healthy Eating Habits Will attend diet classes:: Yes Outcomes/Goals:: Consume diet rich in vegs,fruits,whole grain/high fiber,fish,lean meat, Limit sat/trans fats,cholesterol & added salts & sugars and Other additional outcome/goals: Intervention/Plan:: Assess current eating habits and Other Additional plan/interventions 30-day Reassessments:: Progressing Reassessment Notes & Comments:: Pt is scheduled to attend nutrition class. Heart healthy low sodium diet encouraged. Education Gave educational materials for:: Signs & symptoms of hypoglycemia, Signs & symptoms of hyperglycemia, Relate diabetes to coronary artery disease and Healthy eating Nutrition - 60-Day Assessment Weight Mgt (Other Care) Height: 5 ft 8 in Weight:: 227 lb 8 oz BMI: 34.5 Core - 30-Day Assessment Visit Date of Eval: 05/28/25 Session #:: 8 Medication Compliance Preventative Medication(s):: JACKLYN inhibitor, Beta shaniqua and Eliquis H/O mental health issues: depression, anxiety, or addiction?: No Doesn?t believe in the benefits of treatment?: No Believes medications are unnecessary or harmful?: No Has a concern about medication side effects?: No Expresses concern over the cost of medications?: No Outcomes/Goals: Verbalizes medications,desired effect & common side effects @ DC, Pt self-reports following medication regimen, Keeps card in wallet w/medications listed by DC and Other additional outcome/goals: Interventions/plans: Instruct on medication effects & side effects, Review medication list w/patient every two weeks, Instruct importance of taking meds as ordered & assist problem solving and Other additional Tobacco Use Tobacco Use: Cigars Years Smokin (Pt smokes 1 cigar a day.) Outcomes/Goals: Smoking cessation achieved or maintained by discharge, Identify aids/strategies for achieving smoking cessation by session 6 and Other additional outcome/goals Interventions/plan: Instruct on effects of smoking & provide smoking cessation resource, Assist pt to set quit date & provide encouragement, Assist pt to develop strategies to achieve/maintain quit date, Assist pt w/nicotine replacement & medication for cessation success and Other additional plan/interventions 30-day Reassessments:: Progressing Reassessment Notes & Comments:: Pt is scheduled to attend smoking class. Hypertension Hypertension Diagnosis:: Not Applicable Resting Blood Pressure:: 108/72 [place] [employer] Hypertension Guidelines Peak Exercise Blood Pressure:: 112/70 Outcomes/Goals: Able to verbalize/achieve optimal blood pressure <130/80, Incorporates diet changes & exercise for blood pressure control by DC and Other additional outcomes/goals Interventions/plan: Instruct on optimal blood pressure, hypertension & medications, Instruct on effects of sodium, alcohol, stress, exercise &hypertension and Other additional plan/interventions 30 day Reassessments:: Met Reassessment Notes & Comments:: Pt's BP's are within AHA normal limits. Tobacco Cessation Referral Education Schedule Given:: Yes Psychosocial - 30-Day Assess VIsit Date of Eval: 05/28/25 Session #:: 8 History of previous Mental disease:: No (Pt states he has been a little down due to recent illness.) Target Goals Target Goals Psychosocial Test Tool Used:: PHQ-9 Questionnaire phq-9 Severity See PHQ-9 Score: 2 Referral to Behavioral Health PS - Interventions: Yes: Attend Stress Management Classes Outcomes/Goals: See list Psychosocial Outcomes/Goals:: ID's personal stressors & 2 strategies to manage stress by discharge and Other Additional outcome/goals: Intervention/Plan: See List Interventions/Plan:: Assess stressors,coping strategies & signs of derpression on admission, Instruct/assist pt to develop coping & personal stress Mgt strategies, Refer to Behavioral Health if appropriate, Refer to Physician if appropriate, Instruct patient to recognize signs & symptoms of depression, Instruct patient to recog and Other additional plan/intervention 30-day Reassessments: 30 day Reassessments:: Progressing Reassessment Notes & Comments:: Pt scheduled to attend stress management class. Psychosocial - 60-Day Assess Target Goals Target Goals Referral to Behavioral Health PS - Interventions: Yes: Attend Stress Management Classes Outcomes/Goals: See list Psychosocial Outcomes/Goals:: ID's personal stressors & 2 strategies to manage stress by discharge and Other Additional outcome/goals: Psychosocial - 90-Day Assess Target Goals Target Goals Referral to Behavioral Health PS - Interventions: Yes: Attend Stress Management Classes Psychosocial - Final Assessmen Target Goals Target Goals Referral to Behavioral Health PS - Interventions: Yes: Attend Stress Management Classes Nutrition - 90-Day Assessment Weight Mgt (Other Care) Height: 5 ft 8 in Weight:: 227 lb 8 oz BMI: 34.5 Nutrition - Final Assessment Weight Mgt (Other Care) Height: 5 ft 8 in Weight:: 227 lb 8 oz BMI: 34.5
[2025-05-28 08:19] VITALS: BP 108/72; BMI 34.5
== END 2025-06-19 23:59 ==
LOC: CR 15:15
PROVIDERS: PCP Family Medicine; Referring Provider Internal Medicine Cardiovascular Disease; Visit Provider Internal Medicine Cardiovascular Disease
DX: R93.1 Abnormal findings on diagnostic imaging of heart and coronary circulation (principal); I48.91 Unspecified atrial fibrillation; R06.00 Dyspnea, unspecified; Z87.09 Personal history of other diseases of the respiratory system; F17.200 Nicotine dependence, unspecified, uncomplicated
CPT/HCPCS: 93798

== ENCOUNTER → 2025-06-23 | Outpatient (CLI) | payer MEDICARE, SELFPAY ==
[2025-05-28 08:19] VITALS: BMI 34.5
== END | disposition home or self-care (01) ==
LOC: PSN 13:54
PROVIDERS: PCP Family Medicine; Referring Provider Physician Assistant Medical; Visit Provider Physician Assistant Medical
DX: I49.3 Ventricular premature depolarization (principal)
CPT/HCPCS: 93225; 93226

== ENCOUNTER → 2025-07-02 | Outpatient (CLI) | payer MEDICARE, SELFPAY ==
[2025-05-28 08:19] VITALS: BMI 34.5
[2025-06-27 08:44] VITALS: BMI 34.4
--- NOTE | 2025-07-02 15:06 | ECHOL_ITS ---
Reason For Study Reason For Study: CONGESTIVE HEART FAILURE Procedure This was a limited 2D transthoracic echocardiogram. Exam performed in department. Left Ventricle Normal LV size. Left ventricular systolic function is normal. The left ventricular ejection fraction is 55 %. No regional wall motion abnormalities noted. Right Ventricle Normal RV size. Normal systolic function. Atria Normal left atrium. Normal right atrium. Mitral Valve Normal mitral valve. Tricuspid Valve Normal tricuspid valve. Aortic Valve The aortic valve is not well visualized. Pulmonic Valve Normal pulmonic valve. Great Vessels Mild to moderately dilated aortic root. The pulmonary artery is normal size. Inferior vena cava collapse with respiration. Pericardium/Pleural No pericardial effusion. MMode/2D Measurements & Calculations LVIDd: 5.0 cm IVSd: 1.2 cm Ao root diam: 4.0 cm LVIDs: 3.9 cm LVPWd: 1.0 cm RVDd: 2.7 cm FS: 22.4 % LAV(MOD-bp): 67.1 ml LVAd ap4: 37.2 cm2 LVAd ap2: 32.2 cm2 LAV(MOD-bp) Indexed: 31.2 ml/m2 LVLd ap4: 8.7 cm LVLd ap2: 8.6 cm LAV(MOD-sp2): 64.3 ml EDV(MOD-sp4): 131.4 ml EDV(MOD-sp2): 103.0 ml LAV(MOD-sp4): 67.3 ml EDV(sp4-el): 134.5 ml EDV(sp2-el): 101.7 ml LVAs ap4: 22.4 cm2 LVAs ap2: 18.9 cm2 LVLs ap4: 7.2 cm LVLs ap2: 7.2 cm ESV(MOD-sp4): 59.1 ml ESV(MOD-sp2): 44.9 ml ESV(sp4-el): 59.1 ml ESV(sp2-el): 42.5 ml EF(MOD-sp4): 55.0 % EF(MOD-sp2): 56.5 % EF(sp4-el): 56.0 % SV(MOD-sp4): 72.3 ml SV(MOD-sp2): 58.2 ml SV(sp4-el): 75.4 ml SI(MOD-sp4): 33.6 ml/m2 SI(MOD-sp2): 27.0 ml/m2 LA A4 area: 20.6 cm2 RA A4 area: 14.0 cm2 ECHO/Echo, Limited Study Interpretation Summary Normal LV size. Left ventricular systolic function is normal. The left ventricular ejection fraction is 55 %. No regional wall motion abnormalities noted. Ordering Physician: Ariane Perez Referring Physician: Lee Mathews Performed By: Ella Peterson RDCS, RVT
== END | disposition home or self-care (01) ==
LOC: CVS 15:05
PROVIDERS: PCP Family Medicine; Referring Provider Nurse Practitioner Gerontology; Visit Provider Nurse Practitioner Gerontology
DX: R06.00 Dyspnea, unspecified (principal)
CPT/HCPCS: 93308

== ENCOUNTER 2025-07-18 15:15 | Outpatient (RCR) | payer MEDICARE, SELFPAY ==
[2025-05-28 08:19] VITALS: BMI 34.5
--- NOTE | 2025-06-27 08:25 | PCM.CR.ITP ---
Exercise - Initial Assessment Physician Prescribed Exercise Modalities: Treadmill, Schwinn Airdyne AD-7 and SciFit Stepper Nutrition - Initial Assessment Weight Mgt (Other Care) Height: 5 ft 8 in Weight:: 226 lb 8 oz BMI: 34.4 Core - Initial Assessment Hypertension Resting Blood Pressure:: 100/66 [place] [employer] Hypertension Guidelines Psychosocial - Initial Assess Target Goals Target Goals Referral to Behavioral Health PS - Interventions: Yes: Attend Stress Management Classes Patient Health Questionnaire PHQ-9 Screening 60-Day Re-eval Assessment: 1. Little interest or pleasure in doing things: Not at all 2. Feeling down, depressed, or hopeless: Not at all 3. Trouble falling or staying asleep, or sleeping too much: Several days 4. Feeling tired or having little energy: Several days 5. Poor appetite or overeating: Not at all 6. Feeling bad about yourself -- or that you are a failure or have let yourself or your family down: Not at all 7. Trouble concentrating on things, such as reading the newspaper or watching television: Not at all 8. Moving or speaking so slowly that other people could have noticed. Or the opposite - being so fidgety or restless that you have been moving around a lot more than usual: Not at all 9. Thoughts that you would be better off , or of hurting yourself in some way: Not at all How difficult have these problems made it for you to do your work, take care of things at home, or get along with other people?: Somewhat difficult Total Score: 2 Self-Efficacy 6-Item Scale 60-Day Re-eval Assessment: We would like to know how confident you are in doing certain activities. Please select your confidence level for: Fatigue Select Number: 7 Physical Discomfort or Pain Select Number: 10 Emotional Distress Select Number: 9 Other Symptoms or Health Problems Select Number: 10 Different Tasks and Activities Select Number: 10 Medication Select Number: 10 Total Score:: 9 Nutrition Survey Nutrition Survey Instructions Scoring Instructions Exercise - 30-day Assessment Physician Prescribed Exercise Modalities: Treadmill, Schwinn Airdyne AD-7 and SciFit Stepper Exercise - 60-day Assessment Visit Date of Eval: 06/27/25 Session #:: 21 Physician Prescribed Exercise Modalities: Treadmill, Schwinn Airdyne AD-7 and SciFit Stepper Frequency: 3x/week for 12 weeks [36 sessions] Intensity: 60-80% of age predicted maximum heart rate reserve Duration: 30 - 45 minutes Current METSs:: 5.3 Target Heart Rate:: 89-112 Current RPE:: 12.5-13 Maximum Excercise HR:: 88 Resting Blood Pressure: 108/78 Maximum Exercise Blood Pressure: 116/68 EKG Type: NSR w/occas PVC/PAC Outcomes & Goals Goals:: Verbalizes understanding of THR, RPE & goal METS by session 6, Documents in home exercise log/reports 30 min aerobic 5 day/wk by DC, Demonstrates accurate pulse taking by DC and Other additional outcome/goals: see below Intervention & Plan Exercise Program Goals: Instruct on personal THR & RPE, Instruct on MET level & personal MET goal, Show patient to take own pulse /validate performance until accurate, Instruct on home exercise and Other additional plan/int Physical Activity Home Exercise Physical Activity - Home Exercise: Safe Exercise, Warm-up, Self-monitoring, Cool-Down, Home Exercise > 30 min Daily and Sitting Time <3 hours/daily Outcomes & Goals Outcomes/Goals: Demonstrates correct Warm-up/exercise Cool-Down (S3) if = 2.5 METs, Verbalizes symptoms of exercise intolerance by Session 3 (S3), Demonstrate safe equipment use (S3) & follows exercise prescrition (6) and Other: See below Intervention & Plan Plan/Intervention: Instruct warm-up & cool-down if exercising at > 2 METs, Instruct on symptoms of exercise intolerance & actions to take, Instruct & monitor on saf, Assess intial functional capacity & safety risk and Other See below 30-day Reassessments 30 day Reassessments:: Progressing Reassessment Notes & Comments:: Proper warm up and cool down explained to pt. Pt demonstrates understanding in his daily sessions. Exercise - 90-day Assessment Physician Prescribed Exercise Modalities: Treadmill, Schwinn Airdyne AD-7 and SciFit Stepper Exercise - Final/Discharge Physician Prescribed Exercise Modalities: Treadmill, Schwinn Airdyne AD-7 and SciFit Stepper Nutrition - 30-Day Assessment Weight Mgt (Other Care) Height: 5 ft 8 in Weight:: 226 lb 8 oz BMI: 34.4 Nutrition - 60-Day Assessment Program Goals Nutrition Program Goals Patient has diagnosis of Hyperlipidemia (ICD E78)?: No Visit Date of Eval: 06/27/25 Session #:: 21 Cholesterol/Lipids (Other Core Measures) Determine presence & major risk factors that modify LDL goal: Cigarette smoking, Hypertension or hypertensive medication, Low HDL cholesterol <40 mg/dL*, Family history of premature CHD in Male < 55 years: female <65 yearsFa and Age men > 45 years; women >/= 55 years Outcomes/Goals: Pt IDs own risk factors & lifestyle modifications by Session 10, Verbalizes symptoms of angina & response by session 3., Pt independently manages and Other Additional Outcomes/Goals: Intervention/Plan: Advocate for lipid panel cholesterol medication if applicable, Instruct on personal lipid levels & lipid goals/NCEP guidelines, Instruct on cholesterol and Other additional plan/int Diabetes (Other Core Measures) Diabetes Type: Not Applicable Weight Mgt (Other Care) Height: 5 ft 8 in Weight:: 226 lb 8 oz BMI: 34.4 Diagnosis Overweight/Obesity BMI> 30% ICD-10 E66: Yes Diagnosis High BMI/Morbid Obesity BMI> 35% ICD-10 Z68: No Outcomes/Goals: Pt sets, maintains & shows weight loss goal & trend during rehab and Other additional outcomes/goals Intervention/Plan: Instruct on ideal BMI & set weight loss goal w/patient, Assist pt to ID & incorporate diet changes for weight loss by S9, Refer to Structured Weight Loss program as appropriate, Encourage goal of using 250-300dcal per session for weight loss and Other additional plan/interventions 30 day Reassessments:: Progressing Reassessment Notes & Comments:: Pt will attend nutrition classes next week with our jinrikisha driver. Low sodium heart healthy diet will be encouraged. Healthy Eating Habits Will attend diet classes:: Yes Outcomes/Goals:: Consume diet rich in vegs,fruits,whole grain/high fiber,fish,lean meat, Limit sat/trans fats,cholesterol & added salts & sugars and Other additional outcome/goals: Intervention/Plan:: Assess current eating habits and Other Additional plan/interventions 30-day Reassessments:: Progressing Reassessment Notes & Comments:: Pt will attend nutrition classes next week with our jinrikisha driver. Low sodium heart healthy diet will be encouraged. Education Gave educational materials for:: Signs & symptoms of hypoglycemia, Signs & symptoms of hyperglycemia, Relate diabetes to coronary artery disease and Healthy eating Core - Final Assessment Tobacco Use Years Smokin Hypertension Resting Blood Pressure:: 100/66 [place] [employer] Hypertension Guidelines Core - 60-Day Assessment Medication Compliance Preventative Medication(s):: JACKLYN inhibitor, Beta shaniqua and Eliquis H/O mental health issues: depression, anxiety, or addiction?: No Doesn?t believe in the benefits of treatment?: No Believes medications are unnecessary or harmful?: No Has a concern about medication side effects?: No Expresses concern over the cost of medications?: No Outcomes/Goals: Verbalizes medications,desired effect & common side effects @ DC, Pt self-reports following medication regimen, Keeps card in wallet w/medications listed by DC and Other additional outcome/goals: Interventions/plans: Instruct on medication effects & side effects, Review medication list w/patient every two weeks, Instruct importance of taking meds as ordered & assist problem solving and Other additional Tobacco Use Tobacco Use: Cigars (1 a day) Years Smokin Outcomes/Goals: Smoking cessation achieved or maintained by discharge, Identify aids/strategies for achieving smoking cessation by session 6 and Other additional outcome/goals Interventions/plan: Instruct on effects of smoking & provide smoking cessation resource, Assist pt to set quit date & provide encouragement, Assist pt to develop strategies to achieve/maintain quit date, Assist pt w/nicotine replacement & medication for cessation success and Other additional plan/interventions 30-day Reassessments:: Progressing Reassessment Notes & Comments:: Pt has attended smoking class. Will continue to encourage. Hypertension Resting Blood Pressure:: 108/78 Resting Blood Pressure:: 100/66 [place] [employer] Hypertension Guidelines Peak Exercise Blood Pressure:: 116/68 Outcomes/Goals: Able to verbalize/achieve optimal blood pressure <130/80, Incorporates diet changes & exercise for blood pressure control by DC and Other additional outcomes/goals Interventions/plan: Instruct on optimal blood pressure, hypertension & medications, Instruct on effects of sodium, alcohol, stress, exercise &hypertension and Other additional plan/interventions 30 day Reassessments:: Met Reassessment Notes & Comments:: Pt's BP's are within AHA normal limits Tobacco Cessation Referral Education Schedule Given:: Yes Psychosocial - 30-Day Assess Target Goals Target Goals Referral to Behavioral Health PS - Interventions: Yes: Attend Stress Management Classes Outcomes/Goals: See list Psychosocial Outcomes/Goals:: ID's personal stressors & 2 strategies to manage stress by discharge and Other Additional outcome/goals: Psychosocial - 60-Day Assess VIsit Date of Eval: 06/27/25 Session #:: 21 History of previous Mental disease:: No Target Goals Target Goals Psychosocial Test Tool Used:: PHQ-9 Questionnaire phq-9 Severity See PHQ-9 Score: 2 Referral to Behavioral Health PS - Interventions: Yes: Attend Stress Management Classes Outcomes/Goals: See list Psychosocial Outcomes/Goals:: ID's personal stressors & 2 strategies to manage stress by discharge and Other Additional outcome/goals: Intervention/Plan: See List Interventions/Plan:: Assess stressors,coping strategies & signs of derpression on admission, Instruct/assist pt to develop coping & personal stress Mgt strategies, Refer to Behavioral Health if appropriate, Refer to Physician if appropriate, Instruct patient to recognize signs & symptoms of depression, Instruct patient to recog and Other additional plan/intervention 30-day Reassessments: 30 day Reassessments:: Met Reassessment Notes & Comments:: Pt has attended stress management class. Psychosocial - 90-Day Assess Target Goals Target Goals Referral to Behavioral Health PS - Interventions: Yes: Attend Stress Management Classes Psychosocial - Final Assessmen Target Goals Target Goals Referral to Behavioral Health PS - Interventions: Yes: Attend Stress Management Classes Nutrition - 90-Day Assessment Weight Mgt (Other Care) Height: 5 ft 8 in Weight:: 226 lb 8 oz BMI: 34.4 Nutrition - Final Assessment Weight Mgt (Other Care) Height: 5 ft 8 in Weight:: 226 lb 8 oz BMI: 34.4
[2025-06-27 08:44] VITALS: BP 100/66; BP 108/78; BMI 34.4
== END 2025-07-20 23:59 ==
LOC: CR 15:15
PROVIDERS: PCP Family Medicine; Referring Provider Internal Medicine Cardiovascular Disease; Visit Provider Internal Medicine Cardiovascular Disease
DX: I48.91 Unspecified atrial fibrillation (principal); R93.1 Abnormal findings on diagnostic imaging of heart and coronary circulation; R06.00 Dyspnea, unspecified; Z87.09 Personal history of other diseases of the respiratory system; F17.200 Nicotine dependence, unspecified, uncomplicated
CPT/HCPCS: 93798

== ENCOUNTER 2025-07-18 15:46 | Emergency (ER) | payer MEDICARE, SELFPAY ==
[2025-06-27 08:44] VITALS: BMI 34.4
[2025-07-18] VITALS (12 sets, daily range): BP systolic 73–106; BP diastolic 51–96; PULSE 53–86; RESP 14–31; TEMP 36.2–36.7; O2SAT 95–100; BMI 34.2
--- NOTE | 2025-07-18 15:55 | RAD_ITS ---
PROCEDURE: CHEST 1 VIEW (PORTABLE) 07/18/2025 REASON FOR EXAM: CHEST PAIN TECHNIQUE: Frontal view of the chest. COMPARISON: 03/20/2025 FINDINGS: Lungs/Pleura: Clear. No pneumothorax or sizable pleural effusion. Heart/Mediastinum: Cardiomegaly. Tortuous thoracic aorta. Bones/Soft tissues: No significant abnormality. RAD/Chest 1 View (Portable) IMPRESSION: Cardiomegaly. No acute pulmonary disease. Reading Location: [id number]
--- NOTE | 2025-07-18 15:55 | EKG12_ITS ---
Test Reason : PALP Blood Pressure : */* mmHG Vent. Rate : 120 BPM Atrial Rate : * BPM P-R Int : * ms QRS Dur : 98 ms QT Int : 346 ms P-R-T Axes : * 23 70 degrees QTcB Int : 489 ms Atrial fibrillation with rapid ventricular response with premature ventricular or aberrantly conducted complexes Nonspecific ST abnormality QTcB >= 480 msec Abnormal ECG Confirmed by Madhu Bautista ([id number]), slot editor RICARDO SWAN ([id number]) on 07/22/2025 10:25:03 AM Referred By: Confirmed By: Madhu Bautista
[2025-07-18 16:07] LABS: Hematocrit 47.0 % (40-54); Hemoglobin 16.2 g/dL (13.0-16.5); Immature Granulocytes Count 0.020 X10^3/uL (0.0-0.0); Mean Corp Hgb Conc 34.5 g/dL (32-36); Mean Corpuscular Volume 93.8 fL (80-94); Mean Platelet Vol. 9.0 fl (6.2-12.0); NRBC Flagged by Analyzer 0 % (0-5); Platelet Count 148 K/mm3 (150-450); RBC Distribution Width CV 14.2 % (11.6-14.6); RBC Distribution Width SD 48.9 fl (35.1-43.9); Red Blood Count 5.01 M/mm3 (4.6-6.2); White Blood Count 9.0 K/mm3 (4.4-11.0)
--- NOTE | 2025-07-18 16:21 | ED.VIS.CHEST ---
HPI History of Present Illness Chief Complaint: Palpitations Informant: patient Narrative Narrative: 68-year-old male history of A-fib. Cardioversion done in April was hospitalized at that time. An EF of under 20% has had an echo since then it reportedly recovered. He is chronically on Eliquis for anticoagulation. Today he was in cardiac rehab was told he thought he was in A-fib and seen in the ER. Denies any chest pain. Denies any significant shortness of breath. Prior Similar Symptoms: Yes Recent Illness/Hospitalization: Yes (April of this year.) CVD Risk Factors: Negative for Hypertension or Diabetes PE Risk Factors: Negative for Recent Travel/Surgery, Recent Immobilization, Prior DVT or PE, Cancer or OCP + Smoking + >/=35 TAD Risk Factors: Negative for Marfan's Syndrome [facility] Medical History Cardiac LV ejection fraction 10-20% History of COPD PAF (paroxysmal atrial fibrillation) CKD (chronic kidney disease), stage II Thrombocytopenia COPD (chronic obstructive pulmonary disease) Morbid obesity HLD (hyperlipidemia) HTN (hypertension) Tobacco use Anxiety and depression Cancer Home Medications ?Medication ?Instructions ?Recorded ?Last Taken ?Type apixaban 5 mg tablet (Eliquis) 5 mg PO BID blood thinner #60 tabs 04/03/25 05/05/25 Rx empagliflozin 10 mg tablet 10 mg PO DAILY #30 tabs 04/03/25 Unknown Rx (Jardiance) spironolactone 25 mg tablet 25 mg PO DAILY #30 tabs 04/03/25 Unknown Rx metoprolol tartrate 50 mg tablet 50 mg PO BID #60 tabs 05/12/25 Unknown Rx lisinopril 5 mg tablet 5 mg PO QDAY #30 tabs 05/30/25 Unknown Rx furosemide 40 mg tablet 40 mg PO DAILY #90 tabs 06/19/25 Unknown Rx Allergy/AdvReac Type Severity Reaction Status Date / Time sertraline (From Zoloft) Allergy Other Verified 07/18/25 15:47 Family History Father History of blood clots Lupus Bowel disease Colon cancer Skin cancer CVA (cerebral vascular accident) Mother Hypertension Surgical History History of appendectomy Social History household members: spouse Smoking Status: Current every day smoker tobacco type: cigarettes alcohol intake: never substance use type: does not use additional social history: DOES USE ASPIRIN ROS ROS ED ROS Narrative Malaise. No chest pain. Constitutional Constitutional ED: Denies chills or fever(s) Eyes Eyes: Reports none ENT ENT ED: Denies ear pain Cardiovascular Cardiovascular: Reports as per HPI; Denies chest pain or racing heartbeat Respiratory/Chest Respiratory/Chest: Denies cough, dyspnea or dyspnea on exertion Gastrointestinal Gastrointestinal: Denies abdominal pain, diarrhea, nausea or vomiting Genitourinary Genitourinary ED: Denies dysuria or hematuria Musculoskeletal Musculoskeletal: Denies arthralgias or back pain Integumentary Denies abscess Neurologic Neurologic: Denies headache(s) Psychiatric Psychiatric: Denies anxiety Endocrine Endocrinology: Denies cold intolerance Hematologic/Lymphatic Hematologic/Lymphatic: Denies lymphadenopathy Allergic/Immunologic Allergic/Immunologic ED: Denies mouth swelling, tongue swelling or urticaria EXAM Physical Exam Narrative Exam Narrative: Well-appearing 70-year-old male. Vital signs initially stable and afebrile. Initial blood pressure was only 95 / 79 his pulse ox 96% on room air. He appears to be in A-fib rate between 98- 120. He is tolerating it well. H EENT exam pupils round reactive light. Moist extremity. Neck nontender no JVD. No lymphadenopathy. Lungs clear to auscultation bilaterally. Heart A-fib rate about 110. Abdomen soft and nontender. Moving all 4 extremities. Nontender no edema no cords. Neurologically is awake alert. Answering questions following commands. Const Vital Signs: 07/18/25 15:47 07/18/25 16:47 07/18/25 16:54 Temperature 98.0 F Temperature Source Oral Pulse Rate 72 82 Pulse Rate [Procedural sedation for cardioversion for A-fib:] Respiratory Rate 16 19 H Respiratory Rate [Procedural sedation for cardioversion for A-fib:] Respiratory Effort Blood Pressure 95/79 81/53 L Blood Pressure [Procedural sedation for cardioversion for A-fib:] Blood Pressure Mean 84 62 Baseline BP Pulse Ox 96 96 Oxygen Delivery Method Room Air Room Air Room Air Oxygen Delivery Method [Procedural sedation for cardioversion for A-fib:] Oxygen Flow Rate (L/min) [Procedural sedation for cardioversion for A-fib:] EtCo2 - Document during CPR and with ROSC EtCo2 - Document during CPR and with ROSC [Procedural sedation for cardioversion for A-fib:] 07/18/25 16:54 07/18/25 17:13 07/18/25 17:31 Temperature 97.2 F L Temperature Source Pulse Rate 86 75 Pulse Rate [Procedural sedation for cardioversion for A-fib:] Respiratory Rate 23 H 31 H Respiratory Rate [Procedural sedation for cardioversion for A-fib:] Respiratory Effort Normal Non-Labored Blood Pressure 92/57 L 79/51 L Blood Pressure [Procedural sedation for cardioversion for A-fib:] Blood Pressure Mean 68 Baseline BP 79/51 Pulse Ox 100 97 Oxygen Delivery Method Room Air Room Air Oxygen Delivery Method [Procedural sedation for cardioversion for A-fib:] Oxygen Flow Rate (L/min) [Procedural sedation for cardioversion for A-fib:] EtCo2 - Document during CPR and with ROSC 40 EtCo2 - Document during CPR and with ROSC [Procedural sedation for cardioversion for A-fib:] 07/18/25 17:40 07/18/25 17:51 07/18/25 18:00 Temperature Temperature Source Pulse Rate 73 78 82 Pulse Rate [Procedural sedation for cardioversion for A-fib:] Respiratory Rate 27 H 26 H 16 Respiratory Rate [Procedural sedation for cardioversion for A-fib:] Respiratory Effort Blood Pressure 73/59 L 102/62 82/54 L Blood Pressure [Procedural sedation for cardioversion for A-fib:] Blood Pressure Mean 63 75 63 Baseline BP Pulse Ox 97 95 97 Oxygen Delivery Method Room Air Room Air Room Air Oxygen Delivery Method [Procedural sedation for cardioversion for A-fib:] Oxygen Flow Rate (L/min) [Procedural sedation for cardioversion for A-fib:] EtCo2 - Document during CPR and with ROSC EtCo2 - Document during CPR and with ROSC [Procedural sedation for cardioversion for A-fib:] 07/18/25 18:12 07/18/25 18:17 07/18/25 18:20 Temperature Temperature Source Pulse Rate 84 53 L Pulse Rate [Procedural sedation for cardioversion for A-fib:] 81 Respiratory Rate 15 Respiratory Rate [Procedural sedation for cardioversion for A-fib:] 14 Respiratory Effort Blood Pressure 93/58 L 106/96 H Blood Pressure [Procedural sedation for cardioversion for A-fib:] 93/58 L Blood Pressure Mean 69 Baseline BP Pulse Ox 99 Oxygen Delivery Method Room Air Oxygen Delivery Method [Procedural sedation for cardioversion for A-fib:] Nasal Cannula Oxygen Flow Rate (L/min) [Procedural sedation for cardioversion for A-fib:] 6 EtCo2 - Document during CPR and with ROSC 42 EtCo2 - Document during CPR and with ROSC [Procedural sedation for cardioversion for A-fib:] 42 07/18/25 18:25 07/18/25 18:30 Temperature Temperature Source Pulse Rate 57 L 58 L Pulse Rate [Procedural sedation for cardioversion for A-fib:] Respiratory Rate 16 14 Respiratory Rate [Procedural sedation for cardioversion for A-fib:] Respiratory Effort Blood Pressure 106/73 85/62 L Blood Pressure [Procedural sedation for cardioversion for A-fib:] Blood Pressure Mean Baseline BP Pulse Ox 99 99 Oxygen Delivery Method Room Air Room Air Oxygen Delivery Method [Procedural sedation for cardioversion for A-fib:] Oxygen Flow Rate (L/min) [Procedural sedation for cardioversion for A-fib:] EtCo2 - Document during CPR and with ROSC 34 35 EtCo2 - Document during CPR and with ROSC [Procedural sedation for cardioversion for A-fib:] Positive well nourished and well developed; Negative for cachectic, contractures or unkempt General Appearance ED: well developed and NAD; Negative for unkempt, cachectic, contractures or pallor Nutritional Appearance: Negative for cachectic HEENT Reports moist mucous membranes normocephalic and atraumatic; Negative for trauma or tenderness Eyes PERRL and EOMs intact bilaterally General Eye ED: Negative for pale conjunctiva Neck no lymphadenopathy, supple and no JVD Chest Wall inspection of chest normal and palpation of chest normal Resp normal respiratory effort and clear to auscultation bilaterally Auscultation: Negative for rales, rhonchi, wheezes or diminished lung sounds Cardio Negative for regular rate or regular rhythm Rate: tachycardic and other Other Details: A-fib RVR. GI normal to inspection, nondistended, normoactive bowel sounds, soft to palpation, non-tender, non-distended and no masses Back/Spine no CVA tenderness and no thoracic nor lumbar tenderness Extremity normal to inspection General Extremety ED: Negative for edema or tenderness General Extremity: Negative for edema Neuro oriented x3 and CN's II-XII intact bilaterally Sensorium / Orientation: awake, alert, oriented to person, oriented to place and oriented to time; Negative for confused Motor Exam: strength 5/5 throughout Psych mental status grossly normal Appearance: Negative for unkempt Skin no rashes or lesions noted and no wounds General Skin Exam: Negative for jaundice or pallor Rashes: No rashes noted Trauma: Negative for abrasion MDM MDM MDM Narrative Medical decision making narrative: 70-year-old male history of A-fib on Eliquis show recurrent A-fib today. Initial rate was around 78 but he has been as high as 120. Cardiac workup with IV Cardizem. Repeat exam at 5:24 PM patient doing well. Heart rates in the 80s he remains in A-fib with PVCs. Extension Work Director wanted us to cardiovert him. We are getting propofol and get him set up for cardioversion and procedural sedation. We decided to use etomidate. He was given a total of 10 mg. 1 shock cardioversion at 300 J. He immediately converted to a sinus rhythm. Occasional PVCs. After 10+ minutes he woke up from procedural sedation and currently is doing well at 6:56 PM. Will follow procedural sedation protocol to be discharged home with family. Lab Data Attestation: I reviewed the patient's lab results. Lab results narrative: CBC shows a white count of 9. H&H 16 and 47. Platelets 148. Electrolytes show sodium 134. Gap 11. Normal BUN of 14 creatinine 1. Glucose 101. Troponin 23. Labs: Laboratory Results - last 24 hr 07/18/25 15:55 WBC 9.0 RBC 5.01 Hgb 16.2 Hct 47.0 MCV 93.8 MCH 32.3 H MCHC 34.5 RDW Std Deviation 48.9 H RDW Coeff of Hair 14.2 Plt Count 148 L MPV 9.0 Immature Gran % (Auto) 0.200 Neut % (Auto) 50.9 Lymph % (Auto) 38.1 [place] % (Auto) 9.6 Eos % (Auto) 1.0 Baso % (Auto) 0.2 Absolute Neuts (auto) 4.6 Absolute Lymphs (auto) 3.41 Nucleated RBC % 0 Sodium 134 Potassium 4.2 Chloride 97 L Carbon Dioxide 26.5 Anion Gap 11 BUN 14 Creatinine 1.06 Estim Creat Clear Calc 72.94 Est GFR (MDRD) Non-Af 75 BUN/Creatinine Ratio 13.2 Glucose 101 H Calcium 8.6 Troponin T High Sens 23 H D Radiography Chest X-Ray - ED: 1 View, Read by ED Physician, Normal, Lungs, Mediastinum, Bony Structures, No Acute Disease, Chronic Changes and Cardiomegaly Diagnostic Testing: Clinical Impression(s) from Imaging Studies Chest X-Ray 07/18/25 15:55 IMPRESSION: Cardiomegaly. No acute pulmonary disease. Reading Location: [facility] Chest x-ray, single view, portable, interpreted both by the radiologist and myself shows borderline cardiomegaly. Chronic changes no acute process. Normal lung chacon with chronic changes. Rhythm Strip Rhythm Strip: A-fib Rate: 120 Ectopy: PVC(s) EKG Initial EKG: Attestation: I personally reviewed and interpreted this EKG as follows: Interpretation: No Acute Injury Pattern and Atrial Fibrillation Comments: A-fib rate 120 no PVCs. No acute signs of PR or ischemia. Procedures Procedural Sedation Procedural sedation for cardioversion for A-fib:: Consent Signed: Yes Any Problems With Anesthesia: No You/Your family experience fever (hyperthermia) w/anesthesia: No Sedation medication: Etomidate Dose: 10 Route: IV Total Moderate Sedation Units: 15 [place]amp[place] Score: Class II (Patient was in a stab pressure was borderline 90-100. So we will choose to use etomidate instead of propofol. He was given 5 cc of the etomidate. Once procedural sedation was obtained he was short cardioverted once using 300 J. Immediately went to a sinus rhythm with occasional PVCs. Blood pres) ASA Classification: II Critical Care Time Critical Care Time: Yes Critical care time (excluding procedures): 30-74 minutes, Including time spent:, Discussing w/Patient &/or Family/Manager Adult, Discussing w/Consultants, Performing Direct Patient Care at Bedside and - (35 minutes) Discharge Plan Triage Chief Complaint: Palpitations ED Provider: Isaias Rocha Dx/Rx/DC Orders Clinical Impression: Atrial fibrillation with RVR, Chronic anticoagulation, History of COPD, History of cardioversion Instructions: ED AFIB Prescriptions: No Action Eliquis 5 mg tablet 5 mg PO BID Qty: 60 11RF Jardiance 10 mg tablet 10 mg PO DAILY Qty: 30 11RF spironolactone 25 mg tablet 25 mg PO DAILY Qty: 30 11RF Rx Instructions: Hold for serum potassium more than 5.0 metoprolol tartrate 50 mg tablet 50 mg PO BID Qty: 60 11RF lisinopril 5 mg tablet 5 mg PO QDAY Qty: 30 11RF furosemide 40 mg tablet 40 mg PO DAILY Qty: 90 3RF Primary Care Provider: Lee Mathews Referrals: Lee Mathews MD [Primary Care Provider] - As Needed Activity Restrictions/Additional Instructions: Continue your current medications. No driving for the next 36 hours. Be very careful on steps. Have assistance. Due to the anesthesia we gave you today. Follow-up with your sign hanger next week. Return if feeling worse. Print Language: Beninese Disposition Disposition: Home, Self Care
[2025-07-18 16:25] LABS: Anion Gap 11 (5-15); BUN 14 mg/dL (4-19); BUN/Creat Ratio 13.2 RATIO (10-20); Calcium,Total 8.6 mg/dL (7.6-11.0); Carbon Dioxide 26.5 mmol/L (21.0-32.0); Chloride 97 mmol/L (98-108); Estimated Creatinine Clearance 72.94 ml/min (50-250); Glucose 101 mg/dL (70-99); Potassium 4.2 mmol/L (3.3-5.1); Troponin T High Sensitivity 23 ng/L (<=22)
[2025-07-18] MEDS: 0.9% Normal Saline (500mL Bag) 500 ML 999 ML IV (17:30)
--- NOTE | 2025-07-18 17:35 | NURSING ---
500 ml bolus in progress at this time per Dr. Rocha in preparation for cardioversion. BP 77/60.
--- NOTE | 2025-07-18 18:25 | EKG12_ITS ---
Test Reason : RHYTHM CONVERSION Blood Pressure : */* mmHG Vent. Rate : 60 BPM Atrial Rate : 60 BPM P-R Int : 188 ms QRS Dur : 98 ms QT Int : 438 ms P-R-T Axes : 65 7 59 degrees QTcB Int : 438 ms Sinus rhythm with occasional Premature ventricular complexes Nonspecific ST and T wave abnormality Abnormal ECG Confirmed by Madhu Bautista ([id number]), medical editor RICARDO SWAN ([id number]) on 07/22/2025 10:24:50 AM Referred By: Confirmed By: Madhu Bautista
== END 2025-07-18 19:29 | disposition home or self-care (01) ==
PROVIDERS: Emergency Provider Emergency Medicine; PCP Family Medicine; Visit Provider Emergency Medicine
DX: I48.91 Unspecified atrial fibrillation (principal); J44.9 Chronic obstructive pulmonary disease, unspecified; F17.210 Nicotine dependence, cigarettes, uncomplicated; N18.2 Chronic kidney disease, stage 2 (mild); I12.9 Hypertensive chronic kidney disease with stage 1 through stage 4 chronic kidney disease, or unspecified chronic kidney disease; E78.5 Hyperlipidemia, unspecified; Z79.01 Long term (current) use of anticoagulants; Z79.899 Other long term (current) drug therapy
CPT/HCPCS: 99283; 71045; 80048; 84484; 85025; 93005; A4216

== ENCOUNTER 2025-07-19 21:25 | Inpatient (IN) | payer MEDICARE, SELFPAY ==
[2025-06-27 08:44] VITALS: BMI 34.4
[2025-07-19 21:25] VITALS: BP 144/97; PULSE 35; RESP 20; TEMP 36.2; O2SAT 98; BMI 34.9
--- OUTSIDE RECORDS SUMMARY | 2025-07-19 21:44 | XMS RPT_ITS | CCD ---
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 Howard [...] Alva DENTON, Dr. Angel Attending Provider Unavaila ble Stephy DENTON, Dr. Vincent Attending Provider Oswaldo DENTON, Dr. Meza Other Provider Dr. Madhu Bautista MD Attending Provider Ariane Ridley Attending Provider Ariane Ridley Referring Provider Fortino DENTON, Dr. Rey Other Provider Dr. Krissy Freitas MD Attending Provider Dr. Carlton Keyes MD Referring Provider Stephy DENTON, Dr. Vincent Other Provider Dr. Nigel Read DO Attending Provider Mihai Salmon Attending Provider [phone] Shanti Clements Attending Provider [phone] Shanti Clements Referring Provider [phone] Bisi DENTON, Dr. Howard Primary Care Provider Bisi DENTON, Dr. Howard Attending Provider Bisi DENTON, Dr. Howard Referring Provider Stephy, Carlton Referring Unavailable Stephy, Carlton Attending Unavailable [facility] Primary Care Unavailable Shanti Clements Referring Unavail able Shanti Clements Attending [facility] able [facility] Chris PIANO REGULATOR, Ariane Referring Unavailable Chris PIANO REGULATOR, Ariane Attending Unavailable [facility] Unavailable Stephy, [place] Consulting Unavailable Stephy, Carlton Attending Unavailable [facility], [facility] Primary Care Unavailable Chris PIANO REGULATOR, Ariane Referring Unavailable Chris PIANO REGULATOR, Ariane Attending Unavailable [facility] Primary Care Unavailable Stephy, Carlton Referring Unavailable Stephy, [place] Attending Unavailable [facility] Primary Care Unavailable [facility] Primary Care Unavailable [place] Attending Unavailable [place] Referring Unavailable Oswaldo, Derrick Attending Unavailable [facility] Primary Care Unavailable White, Sophia L Consulting Unavailable White, Sophia L Admitting Unavailable Belal, Farouk Consulting Unavailable Kitt[place], Stanley Consulting Unavailable Stephy, [place] Referring Unavailable Stephy, Carlton Attending Unavailable [facility], [facility] Primary Care Unavailable [place], [facility] Primary Care Unavailable Belal, Farouk Attending Unavailable Chris PIANO REGULATOR, Ariane Attending Unavailable Ranney, Christopher Referring Unavailable [place], [facility] Primary Care Unavailable Stephy, [place] Consulting Unavailable Stephy, Carlton Referring Unavailable Stephy, [place] Attending Unavailable [facility], [facility] Primary Care Unavailable Stephy, Carlton Consulting Unavailable Stephy, [place] Referring Unavailable Nigel Read Attending Unavailable [place], [facility] Primary Care Unavailable White, Sophia L Admitting Unavailable Oswaldo, Derrick Attending Unavailable White, Sophia L Consulting Unavailable [facility], [facility] Unavailable Belal, Farouk Consulting Unavailable [place], Stanley Consulting Unavailable Derrick [place]acon Consulting Unavailable Krissy Freitas Attending Unavailable Stephy, [place] Attending Unavailable Stephy, [place] Referring Unavailable [place], [facility] Primary Care Unavailable Isaias Rocha Attending Unavailable [place], [place] Primary Care Unavailable [place], [place] Primary Care Unavailable White, Sophia L Consulting Unavailable White, Sophia L Admitting Unavailable White Sophia L Attending Unavailable Stanley Craig Attending Unavailable [place], [facility] Primary Care Unavailable Ranney, Christopher Attending Unavailable [facility], [facility] Referring Unavailable [place], [place] Primary Care Unavailable Ranney, Christopher Attending Unavailable [place], [facility] Referring Unavailable Madhu Bautista Attending Unavailable Stephy, [place] Attending Unavailable Stephy, [place] Referring Unavailable [place], [place] Primary Care Unavailable Stephy, Carlton Attending Unavailable [place], [place] Primary Care Unavailable Setphy, [place] Attending Unavailable Shanti Clements Referring Unavail able [place], [place] Primary Care Unavailable Stephy, [place] Attending Unavailable [facility], [place] Primary Care Unavailable Chris MARIE, Ariane Attending Unavailable [place], [place] Primary Care Unavailable Stephy, [place] Attending Unavailable [place], [facility] Referring Unavailable Ranney, [place] Primary Care Unavailable [place], [facility] Referring Unavailable Mihai Rodriguez Attending Unavailable [facility], [place] Primary Care Unavailable Chris PIANO REGULATOR, Ariane Attending Unavailable [place], [place] Primary Care Unavailable [place], [facility] Referring Unavailable Bisi DENTON, Dr. Howard Primary Care Provider Dr. Lee Mathews MD Referring Provider Dr. Isaias Rocha MD Emergency Provider Allergies Allergy Classification Reported Allergen(s) Allergy Type Date of Onset Reaction(s) Facility (15 sources) Sertraline Drug Allergy 11-13-2021 Other [facility] Comment on above: CP AND SOB (1 source) Sertraline Drug Allergy 07-18-2025 [facility] Repository Medications Current Medications Medication Drug Class(es) Dates Sig (Normalized) Sig (Original) apixaban 5 mg oral tablet (20 sources) Factor Xa Inhibitor Start: 03-20-2025 End: 04-03-2025 take 1 tablet by mouth twice daily Apixaban (Eliquis) 5 mg tablet Active 5 mg PO TWICE A DAY 60 April 03, 2025 2:09pm blood thinner empagliflozin 10 mg oral tablet (20 sources) Sodium-Glucose Cotransporter 2 Inhibitor Start: 03-27-2025 End: 04-03-2025 take 1 tablet by mouth once daily Empagliflozin (Jardiance) 10 mg tablet Active 10 mg PO DAILY 30 April 03, 2025 2:09pm Lactobac Acidoph-Fructooligo s (1 source) Start: 07-02-2018 Lactobac Acidoph-Fructoolig os Active 1 EACH PO TWICE A DAY July 02, 2018 12:00am lisinopril 5 mg oral tablet (20 sources) Angiotensin Converting Enzyme Inhibitor Start: 05-30-2025 take 1 tablet by mouth once daily Lisinopril 5 mg tablet Active 5 mg PO daily 30 May 30, 2025 4:16pm Start: 04-03-2025 End: 05-30-2025 take 1 tablet by mouth twice daily Lisinopril 5 mg tablet Discontinued 5 mg PO TWICE A DAY 60 April 03, 2025 2:07pm May 30, 2025 4:17pm Start: 03-27-2025 End: 04-03-2025 take 1 tablet by mouth twice daily Lisinopril 2.5 mg Tablet Discontinued 2.5 mg PO TWICE A DAY 60 30 March 27, 2025 12:00am April 03, 2025 2:12pm Start: 06-22-2018 End: 03-27-2025 take 1 tablet by mouth once daily Lisinopril 20 mg tablet Discontinued 20 mg PO daily June 22, 2018 12:00am March 27, 2025 12:37pm hypertension metoprolol tartrate 50 mg oral tablet (20 sources) beta-Adrenergic Shaniqua Start: 05-12-2025 take 1 tablet by mouth twice daily Metoprolol Tartrate 50 mg tablet Active 50 mg PO TWICE A DAY 60 May 12, 2025 4:29pm Start: 03-27-2025 End: 05-12-2025 take 1 tablet by mouth twice daily Metoprolol Tartrate 100 mg tablet Discontinued 100 mg PO TWICE A DAY 60 April 03, 2025 2:10pm May 12, 2025 4:30pm Start: 03-20-2025 End: 03-27-2025 take 1 tablet by mouth twice daily Metoprolol Tartrate 50 mg tablet Discontinued 50 mg PO TWICE A DAY March 20, 2025 12:00am March 27, 2025 12:38pm afib spironolactone 25 mg oral tablet (20 sources) Aldosterone Antagonist Start: 03-27-2025 End: 04-03-2025 Spironolactone 25 mg tablet Active 25 mg PO DAILY 30 April 03, 2025 2:10pm Hold for serum potassium more than 5.0 Completed/Discontinued Medications Medication Drug Class(es) Dates Sig (Normalized) Sig (Original) acetaminophen 325 mg / HYDROcodone bitartrate 5 mg oral tablet (15 sources) Opioid Agonist Start: 11-13-2021 End: 03-20-2025 Hydrocodone-Acetami nophen 5-325 mg tablet Discontinued 1 {tbl} PO AT BEDTIME as needed for pain 10 3 November 13, 2021 March 20, 2025 8:11pm Epistaxis Epistaxis Start: 11-13-2021 take 1 tablet by shawna th at bedtime Hydrocodone-Acetaminophen Active 1 TABLE T PO AT BEDTIME 10 3 November 13, 2021 acetaminophen 325 mg / oxyCODONE hydrochloride 5 mg oral tablet (15 sources) Opioid Agonist Start: 07-02-2018 End: 03-20-2025 Oxycodone-Acetaminophen 1 TABLET tablet Discontinued 1 - 2 {tbl} PO 4 TIMES DAILY NEEDED as needed for Pain 20 3 0 July 02, 2018 9:35am March 20, 2025 8:11pm Other acute postprocedural pain Start: 07-02-2018 take 1 tablet by shawna th four times daily as needed Oxycodone-Acetaminophen Active 1 - 2 TABLET PO 4 TIMES DAILY NEEDED 20 3 July 02, 2018 9:35am [id number] 200 actuat albuterol 0.09 mg/actuat metered dose inhaler (13 sources) beta2-Adrenergic Agonist Start: 03-20-2025 End: 07-18-2025 Albuterol Sulfate 90 mcg/actuation HFA aerosol inhaler Discontinued 2 NMA INHALATION 4 TIMES DAILY NEEDED as needed for shortness of breath or wheezing March 20, 2025 12:00am July 18, 2025 5:37pm cephalexin 500 mg oral capsule (15 sources) Cephalosporin Antibacterial Start: 06-18-2018 End: 07-02-2018 take 1 capsule by mouth every six hours Cephalexin 500 MG capsule Discontinued 500 mg PO EVERY 6 HOURS 40 0 June 18, 2018 12:00am July 02, 2018 9:34am clindamycin 150 mg oral capsule (20 sources) Lincosamide Antibacterial Start: 11-13-2021 End: 03-20-2025 take 1 capsule by mouth three times daily Clindamycin Hcl 150 mg capsule Discontinued 150 mg PO THREE TIMES A DAY 14 0 November 13, 2021 1:00am March 20, 2025 8:11pm Start: 07-02-2018 End: 07-25-2018 take 1 capsule by mouth three times daily Clindamycin Hcl 300 mg capsule Discontinued 300 mg PO THREE TIMES A DAY 42 14 0 July 11, 2018 12:04pm July 24, 2018 12:00am July 25, 2018 12:05am diazePAM 5 mg oral tablet (15 sources) Benzodiazepine Start: 07-02-2018 End: 03-20-2025 take 1 tablet by mouth twice daily as needed for muscle spasms Diazepam 5 MG tablet Discontinued 5 mg PO TWICE DAILY NEEDED as needed for Spasms 10 0 July 02, 2018 9:36am March 20, 2025 8:13pm digoxin 0.125 mg oral tablet (20 sources) Cardiac Glycoside Start: 03-27-2025 End: 05-12-2025 take 1 tablet by mouth once daily Digoxin 125 mcg (0.125 mg) tablet Discontinued 125 ug PO DAILY 30 April 03, 2025 2:09pm May 12, 2025 4:29pm docusate sodium 50 mg / sennosides, long-term 8.6 mg oral tablet (13 sources) Start: 03-27-2025 End: 05-27-2025 Sennosides-Docusat e Sodium (Stimulant Laxative Plus) 8.6-50 mg Tablet Discontinued 2 {tbl} PO TWICE DAILY NEEDED as needed for Constipation 0 March 27, 2025 12:00am May 27, 2025 2:00pm OTC escitalopram 10 mg oral tablet (15 sources) Serotonin Reuptake Inhibitor Start: 06-22-2018 End: 07-26-2018 take 1 tablet by mouth once daily Escitalopram Oxalate (Lexapro) 10 mg tablet Discontinued 10 mg PO daily June 22, 2018 12:00am July 26, 2018 3:15pm fluticasone propionate 0.05 mg/actuat metered dose nasal spray (15 sources) Corticosteroid Start: 06-29-2018 End: 03-20-2025 Fluticasone Propionate 1 SPRAY spray,suspension Discontinued 2 NMA NASAL NEEDED as needed for Allergies June 29, 2018 12:00am March 20, 2025 8:11pm Start: 06-29-2018 Fluticasone Pr opionate Active 2 SPRAY NASAL NEEDED June 29, 2018 12:00am furosemide 40 mg oral tablet (20 sources) Loop Diuretic Start: 03-27-2025 End: 06-19-2025 take 1 tablet by mouth once daily Furosemide 40 mg tablet Discontinued 40 mg PO DAILY 30 April 03, 2025 2:10pm June 19, 2025 11:53am Start: 03-20-2025 End: 03-27-2025 take 1 tablet by mouth twice daily as needed Furosemide 20 mg tablet Discontinued 20 mg PO TWICE DAILY NEEDED March 20, 2025 12:00am March 27, 2025 12:37pm water pill, diuretic Lactobac Acidoph-Fructooligo s 1 EACH tablet (14 sources) Start: 07-02-2018 End: 03-20-2025 Lactobac Acidoph-Fructooligo s 1 EACH tablet Discontinued 1 NMA PO TWICE A DAY July 02, 2018 12:00am March 20, 2025 8:11pm Start: 07-02-2018 End: 03-20-2025 Lactobac Acidoph-Fructooligo s 1 EACH tablet Discontinued 1 NMA PO TWICE A DAY July 02, 2018 12:00am March 20, 2025 8:11pm Start: 07-02-2018 Lactobac Acido ph-Fructooligos 1 EACH tablet Active 1 NMA PO TWICE A DAY July 02, 2018 12:00am LORazepam 2 mg oral tablet (15 sources) Benzodiazepine Start: 06-22-2018 End: 03-20-2025 take 5 tablets by mouth once as needed for anxiety Lorazepam 2 mg tablet Discontinued 10 mg PO ONCE as needed for Anxiety June 22, 2018 12:00am March 20, 2025 8:11pm Start: 06-22-2018 take 10 mg by mouth once Loraz epam Active 10 MG PO ONCE June 22, 2018 12:00am naproxen sodium 220 mg oral capsule (15 sources) Nonsteroidal Anti-inflammatory Drug Start: 06-22-2018 End: 07-02-2018 take 1 capsule by mouth twice daily as needed for pain Naproxen Sodium (Aleve) 220 mg capsule Discontinued 220 mg PO TWICE A DAY as needed for Pain June 22, 2018 12:00am July 02, 2018 9:35am Problems Active Problems Problem Classification Problem Date Documented Da te Episodic/Chronic Cardiac dysrhythmias (20 sources) Atrial fibrillation with rapid ventricular response; 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: [Unspecified atrial fibrillation] Onset: 04-20-2025 03-20-2025 Chronic Congestive heart failure; nonhypertensive (20 sources) Acute systolic heart failure; 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: [Acute systolic (congestive) heart failure] Onset: 03-21-2025 03-06-2025 Chronic Hypertension with complications and secondary hypertension (1 source) 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 1 through stage 4 chronic kidney disease, or unspecified chronic kidney disease; 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: [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 1 through stage 4 chronic kidney disease, or unspecified chronic kidney disease] Onset: 05-07-2025 Chronic Other aftercare (1 source) Long-term current use of anticoagulant; 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: [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] 07-18-2025 Episodic Other lower respiratory disease (20 sources) History of chronic obstructive airway disease; 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: [Personal history of other diseases of the respiratory system] 03-20-2025 Episodic Other lower respiratory disease (20 sources) Dyspnea; 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: [Dyspnea, unspecified] 03-20-2025 Episodic Other lower respiratory disease (2 sources) Dyspnea, unspecified; 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: [Dyspnea, unspecified] Onset: 04-20-2025 Episodic Other lower respiratory disease (1 source) Other forms of dyspnea; 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: [Other forms of dyspnea] Onset: 04-20-2025 Episodic Other lower respiratory disease (1 source) Personal history of other diseases of the respiratory system; 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: [Personal history of other diseases of the respiratory system] Onset: 04-20-2025 Episodic Other screening for suspected conditions (not mental disorders or infectious disease) (20 sources) Left ventricular systolic dysfunction; 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: [Abnormal findings on diagnostic imaging of heart and coronary circulation] Onset: 04-20-2025 03-24-2025 Episodic Other skin disorders (1 source) Finding of head and neck region; 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: [Localized swelling, mass and lump, head] 07-08-2018 Episodic Other skin disorders (14 sources) Finding of head region; 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: [Localized swelling, mass and lump, head] 06-28-2018 Episodic Comment on above: 3 cm infected soft t issue mass right melolabial fold by commissure of lip Other upper respiratory disease (15 sources) Bleeding from nose; 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: [Epistaxis] 11-21-2021 Episodic Residual codes; unclassified (20 sources) Hypersomnia; 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: [Hypersomnia, unspecified] 04-03-2025 Chronic Residual codes; unclassified (1 source) Hypersomnia, unspecified; 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: [Hypersomnia, unspecified] Onset: 04-03-2025 Chronic Residual codes; unclassified (15 sources) Family history of malignant neoplasm of skin; 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: [Family history of malignant neoplasm of other organs or systems] 07-08-2018 Episodic Residual codes; unclassified (1 source) History of cardioversion; 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: [Personal history of other medical treatment] 07-18-2025 Episodic Skin and subcutaneous tissue infections (20 sources) Abscess of face; 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: [Cutaneous abscess of face] 07-20-2018 Episodic Comment on above: 1.7 cm infected soft tissue mass right melolabial fold by commissure of lip 3 cm infected soft t issue mass right melolabial fold by commissure of lip Substance-related disorders (20 sources) Smoker; 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: [Nicotine dependence, unspecified, uncomplicated] Onset: 04-20-2025 07-08-2018 Chronic Unclassified (13 sources) R93.1 - Abnormal findings on diagnostic imaging of heart and coronary circulation,I48.91 - Unspecified atrial fibrillation,R06.00 - Dyspnea, unspecified,Z87.09 - Personal history of other diseases of the respiratory system,F17.200 - Nicotine dependence, unspecified, uncomplicated Unclassified (13 sources) Follow Dr. Madhu Bautista in 1 week to 10 days. Unclassified (7 sources) Left ventricular ejection fraction of 10% to 20% Unclassified (7 sources) Other back symptoms Unclassified (7 sources) History of chronic obstructive lung disease Unclassified (7 sources) Current smoker Past or Other Problems Problem Classification Problem Date Documented Da te Episodic/Chronic Residual codes; unclassified (1 source) Edema, unspecified; 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: [Edema, unspecified] Onset: 03-06-2025 Episodic Results Test Name Value Interpretation Reference Range Facility Absolute lymphocyte countOrd ered By: ED PROVIDER on 07-18-2025 Lymphocytes Auto (Unsp spec) [#/Vol] 3.41 10*3/uL 0.83-4.51 [facility] Absolute neutrophil countOrd ered By: ED PROVIDER on 07-18-2025 Neutrophils (Bld) [#/Vol] 4.6 10*3/uL 2.0-7.7 [facility] Anion gap in Serum or Plasma Ordered By: Isaias Rocha on 07-18-2025 Anion gap [Moles/Vol] 11 mmol/L - [facility] Automated lymphocyte count a s percentage of total leukocytesOrdered By: ED PROVIDER on 07-18-2025 Lymphocytes/100 WBC Auto (Unsp spec) 38.1 % [facility] BUN/creatinine ratioOrdered By: Isaias Rocha on 07-18-2025 Urea nitrogen/Creatinine [Mass ratio] 13.2 mg/mg - [facility] Basic Metabolic Profile (BMP )on 07-18-2025 BUN/CRE 13.2 RATIO Normal 09-08 [facility] Comment on above: Performed By: #### L 300.4310, L300.3900 #### [facility] [address] [place], [address] Calcium [Mass/Vol] 8.6 mg/dL Normal 7.6-11.0 [facility] Comment on above: Performed By: #### L 300.4310, [id number] #### [facility] [address] [place], [address] Chloride [Moles/Vol] 97 mmol/L Low 98-108 [facility] Comment on above: Performed By: #### L 300.4310, [id number] #### [facility] [address] [place], [address] CO2 [Moles/Vol] 26.5 mmol/L Normal 21.0-32.0 [facility] Comment on above: Performed By: #### L 300.4310, [id number] #### [facility] [address] [place], [address] Creatinine [Mass/Vol] 1.06 mg/dL Normal 0.70-1.20 [facility] Comment on above: Performed By: #### L 300.4310, [id number] #### [facility] [address] [place], [address] ECRCL 72.94 ml/min Normal 50-250 [facility] Comment on above: Performed By: #### L 300.4310, [id number] #### [facility] [address] [place], [address] GAP 11 Normal 5-15 [facility] Comment on above: Performed By: #### L 300.4310, [id number] #### [facility] [address] [place], [address] GFR/1.73 sq M.predicted among non-blacks MDRD (S/P/Bld) [Vol rate/Area] 75 mL/min/{1.73_m2} Normal >60 [facility] Comment on above: Result Comment: mL/m in/1.73m2 CKD-EPI Creatinine Equation (2020) Performed By: #### L 300.4310, [id number] #### [facility] [address] [place], [address] Glucose [Mass/Vol] 101 mg/dL High 70-99 [facility] Comment on above: Performed By: #### L 300.4310, [id number] #### [facility] [address] [place], [address] Potassium [Moles/Vol] 4.2 mmol/L Normal 3.3-5.1 [facility] Comment on above: Performed By: #### L 300.4310, [id number] #### [facility] [address] [place], [address] Sodium [Moles/Vol] 134 mmol/L Normal 133-145 [facility] Comment on above: Performed By: #### L 300.4310, [id number] #### [facility] [address] [place], [address] Urea nitrogen [Mass/Vol] 14 mg/dL Normal 4-19 [facility] Comment on above: Performed By: #### L 300.4310, [id number] #### [facility] [address] [place], [address] Basophil percentageOrdered B y: ED PROVIDER on 07-18-2025 Basophils/100 WBC (Bld) 0.2 % 0-1 [facility] CBC W/Diff, Automatedon 06-21 Absolute Lymph 3.41 X10 3/uL Normal 0.83-4.51 [facility] Comment on above: Performed By: #### L 300.4310, [id number] #### [facility] [address] [place], [address] Absolute Neut 4.6 X10 3/uL Normal 2.0-7.7 [facility] Comment on above: Performed By: #### L 300.4310, [id number] #### [facility] [address] [place], [address] Basophils/100 WBC (Bld) 0.2 % Normal 0-1 [facility] Comment on above: Performed By: #### L 300.4310, [id number] #### [facility] [address] [place], [address] Eosinophils/100 WBC (Bld) 1.0 % Normal 0-5 [facility] Comment on above: Performed By: #### L 300.4310, [id number] #### [facility] [address] [place], [address] Erythrocyte distribution width (RBC) [Ratio] 14.2 % Normal 11.6-14.6 [facility] Comment on above: Performed By: #### L 300.4310, [id number] #### [facility] [address] [place], [address] Hematocrit (Bld) [Volume fraction] 47.0 % Normal 40-54 [facility] Comment on above: Performed By: #### L 300.4310, [id number] #### [facility] [address] [place], [address] Hemoglobin (Bld) [Mass/Vol] 16.2 g/dL Normal 13.0-16.5 [facility] Comment on above: Performed By: #### L 300.4310, [id number] #### [facility] [address] [place], [address] IG% 0.200 Normal 0.0-0.9 [facility] Comment on above: Result Comment: IG% - Immature Granulocytes (promyelocytes, myelocytes and metamyelocytes) > 1% indicates that a LEFT SHIFT is Present. Performed By: #### L 300.4310, [id number] #### [facility] [address] [place], [address] Lymphocytes/100 WBC (Bld) 38.1 % Normal 19-41 [facility] Comment on above: Performed By: #### L 300.4310, [id number] #### [facility] [address] [place], [address] MCH (RBC) [Entitic mass] 32.3 pg High 27.0-32.0 [facility] Comment on above: Performed By: #### L 300.4310, [id number] #### [facility] [address] [place], [address] MCHC (RBC) [Mass/Vol] 34.5 g/dL Normal 32-36 [facility] Comment on above: Performed By: #### L [id number], [id number] #### [facility] [address] [place], [address] MCV (RBC) [Entitic vol] 93.8 fL Normal 80-94 [facility] Comment on above: Performed By: #### L 300.4310, [id number] #### [facility] [address] [place], [address] Monocytes/100 WBC (Bld) 9.6 % Normal 0-10 [facility] Comment on above: Performed By: #### L 300.4310, L300.3900 #### [facility] [address] [place], [address] Neutrophils/100 WBC (Bld) 50.9 % Normal 47-70 [facility] Comment on above: Performed By: #### L 300.4310, L300.3900 #### [facility] [address] [place], [address] Nucleated RBC (Bld) [#/Vol] 0 10*3/uL Normal 0-5 [facility] Comment on above: Performed By: #### L 300.4310, L300.3900 #### [facility] [address] [place], [address] Platelet mean volume (Bld) [Entitic vol] 9.0 fL Normal 6.2-12.0 [facility] Comment on above: Performed By: #### L 300.4310, L300.3900 #### [facility] [address] [place], [address] Platelets (Bld) [#/Vol] 148 10*3/uL Low 150-450 [facility] Comment on above: Performed By: #### L 300.4310, L300.3900 #### [facility] [address] [place], [address] RBC (Bld) [#/Vol] 5.01 10*6/uL Normal 4.6-6.2 [facility] Comment on above: Performed By: #### L 300.4310, L300.3900 #### [facility] [address] [place], [address] RDW SD 48.9 fl High 35.1-43.9 [facility] Comment on above: Performed By: #### L 300.4310, L300.3900 #### [facility] [address] [place], [address] WBC (Bld) [#/Vol] 9.0 10*3/uL Normal 4.4-11.0 [facility] Comment on above: Performed By: #### L 300.4310, L300.3900 #### [facility] [address] [place], [address] Carbon dioxide, total [Moles /volume] in Central venous bloodOrdered By: Isaias Rocha on 07-18-2025 CO2 [Moles/Vol] 26.5 mmol/L 21.0-32.0 [facility] Chloride assayOrdered By: Esau Rocha on 07-18-2025 Chloride [Moles/Vol] 97 mmol/L Low 98-108 [facility] Eosinophil percentageOrdered By: ED PROVIDER on 07-18-2025 Eosinophils/100 WBC (Bld) 1.0 % 0-5 [facility] Erythrocyte distribution wid th ratioOrdered By: ED PROVIDER on 07-18-2025 Erythrocyte distribution width (RBC) [Ratio] 14.2 % 11.6-14.6 [facility] Erythrocyte distribution wid th standard deviationOrdered By: ED PROVIDER on 07-18-2025 Erythrocyte distribution width (RBC) [Ratio] 48.9 fl High 35.1-43.9 [facility] Glomerular filtration rate ( GFR) estimation/1.73 sq m using serum, plasma, or whole bOrdered By: Isaias Rocha on 07-18-2025 GFR/1.73 sq M.predicted among non-blacks MDRD (S/P/Bld) [Vol rate/Area] 75 mL/min/{1.73_m2} >60 [facility] Comment on above: mL/min/1.73m2 CKD-EP I Creatinine Equation (2020) Hematocrit Auto (Bld) [Volum e fraction]Ordered By: ED PROVIDER on 07-18-2025 Hematocrit (Bld) [Volume fraction] 47.0 % 40-54 [facility] Hemoglobin measurementOrdere d By: ED PROVIDER on 07-18-2025 Hemoglobin (Bld) [Mass/Vol] 16.2 g/dL 13.0-16.5 [facility] Immature granulocytes/100 WB C Auto (Bld)Ordered By: ED PROVIDER on 07-18-2025 Immature granulocytes/100 WBC (Bld) 0.200 % 0.0-0.9 [facility] Comment on above: IG% - Immature Granu locytes (promyelocytes, myelocytes and metamyelocytes) > 1% indicates that a LEFT SHIFT is Present. L501.4021on 07-18-2025 Trop T High Sen 23 ng/L High <=22 [facility] Comment on above: Performed By: #### L 300.4310, L300.3900 #### [facility] [address] [place] [address], [address] MCV (mean corpuscular volume ) determinationOrdered By: ED PROVIDER on 07-18-2025 MCV (RBC) [Entitic vol] 93.8 fL 80-94 [facility] Mean corpuscular hemoglobin (MCH) determinationOrdered By: ED PROVIDER on 07-18-2025 MCH (RBC) [Entitic mass] 32.3 pg High 27.0-32.0 [facility] Mean corpuscular hemoglobin concentration (MCHC) determinationOrdered By: ED PROVIDER on 07-18-2025 MCHC (RBC) [Mass/Vol] 34.5 g/dL 32-36 [facility] Mean platelet volume determi nationOrdered By: ED PROVIDER on 07-18-2025 Platelet mean volume (Bld) [Entitic vol] 9.0 fL 6.2-12.0 [facility] Monocyte percentageOrdered B y: ED PROVIDER on 07-18-2025 Monocytes/100 WBC (Bld) 9.6 % 0-10 [facility] Neutrophil percentageOrdered By: ED PROVIDER on 07-18-2025 Neutrophils/100 WBC (Bld) 50.9 % 47-70 [facility] Nucleated red blood cell per centageOrdered By: ED PROVIDER on 07-18-2025 Nucleated RBC/100 WBC (Bld) [Ratio] 0 % 0-5 [facility] Platelet countOrdered By: ED PROVIDER on 07-18-2025 Platelets (Bld) [#/Vol] 148 10*3/uL Low 150-450 [facility] Potassium measurement (mass/ volume)Ordered By: Isaias Rocha on 07-18-2025 Potassium (Unsp spec) [Mass/Vol] 4.2 mmol/L 3.3-5.1 [facility] RBC Auto (Bld) [#/Vol]Ordere d By: ED PROVIDER on 07-18-2025 RBC (Bld) [#/Vol] 5.01 10*6/uL 4.6-6.2 [facility] Serum creatinine measurement (mass/volume)Ordered By: Isaias Rocha on 07-18-2025 Creatinine [Mass/Vol] 1.06 mg/dL 0.70-1.20 [facility] Serum glucose measurement (m ass/volume)Ordered By: Isaias Rocha on 07-18-2025 Glucose [Mass/Vol] 101 mg/dL High 70-99 [facility] Serum or plasma calcium jennifer urement (mass/volume)Ordered By: Isaias Rocha on 07-18-2025 Calcium [Mass/Vol] 8.6 mg/dL 7.6-11.0 [facility] Serum or plasma urea nitroge n measurement (mass/volume)Ordered By: Isaias Rocha on 07-18-2025 Urea nitrogen [Mass/Vol] 14 mg/dL 4-19 [facility] Sodium levelOrdered By: Isaias Rocha on 07-18-2025 Sodium [Moles/Vol] 134 mmol/L 133-145 [facility] Troponin T.cardiac [Mass/vol ume] in Serum or Plasma by High sensitivity methodOrdered By: Isaias Rocha on 07-18-2025 Troponin T.cardiac High sensitivity method [Mass/Vol] 23 ng/L High <22 [facility] Comment on above: Delta: 43 on 5-0520 White blood cell (WBC) count Ordered By: ED PROVIDER on 07-18-2025 WBC (Bld) [#/Vol] 9.0 10*3/uL 4.4-11.0 [facility] Cardiology Visit Reporton Cardiology Visit Report [facility] [address] [place], [place] [address] OFFICE VISIT Date of Service: 07/04/25 MR#: [id number] Acct: [id number] Name: KELVIN LEE Jr. Rep #: [id number] : 1955 Provider: VERONICA brown Age/Sex: 70/M Location: [facility] [place] [facility] Status: Signed HPI HPI History of Present Illness Details: Kelvin Lee Jr is a 70-year-old male who presents to office today for follow-up for monitoring of his cardiovascular health. Patient presented to the emergency department 03/20/2025 with concerns of shortness of breath and bilateral lower extremity edema. His BNP was elevated at 8957. EKG demonstrated atrial fibrillation with RVR. Patient was admitted for further evaluation. His echocardiogram 03/21/2025 demonstrated decreased ejection fraction at 10-15%, moderately dilated right ventricle and mildly enlarged left and right atrium. His cardiac catheterization 04/03/2025 demonstrated normal coronary arteries. Patient was initiated on guideline directed medical therapy and discharged home with follow-up. Patient underwent cardioversion 05/05/2025. His EKG in office 1 week following on 05/12/2025 demonstrated sinus bradycardia with occasional PVCs at a rate of 51 bpm. He was instructed to decrease his metoprolol to tartrate to 50 mg twice daily and discontinue his digoxin. From a cardiac standpoint, the patient is doing well. He denies any palpitations, chest pain, pressure or heaviness. He denies SOB, Orthopnea, and PND. He does not have bleeding issues; no blood in urine, stool, or nosebleeds. He denies any decrease in energy level, myalgias, or claudication. He does not have edema, or sudden weight gain. He denies lightheadedness, dizziness, syncopal or near syncopal episodes, and headaches. Intake Vital Signs 04/03/25 08:24 06/27/25 08:44 07/04/25 13:30 Height 5 ft 8 in 5 ft 8 in 5 ft 8 in Weight: 226 lb BMI 34.3 BP 119/79 Blood Pressure Location Lt brachial Position Sitting Respiration 18 Pulse 66 Pulse Source Monitor Pulse Oximetry (%) 95 Intake Visit Reasons: 3 M FU Foam Fabricator Required: No Is patient in pain?: No Allergies sertraline (From [employer]) Allergy (Verified 07/04/25 13:39) Other Medications ???Medication ???Instructions ???Recorded ???Confirmed ???Type albuterol sulfate 90 mcg/actuation 2 puff inhalation 4X/DAY PRN PRN 03/20/25 07/04/25 History aerosol inhaler shortness of breath or wheezing apixaban 5 mg tablet (Eliquis) 5 mg PO BID blood thinner #60 tabs 04/03/25 07/04/25 Rx empagliflozin 10 mg tablet 10 mg PO DAILY #30 tabs 04/03/25 0 07/04/25 Rx (Jardiance) spironolactone 25 mg tablet 25 mg PO DAILY #30 tabs 04/03/25 0 07/04/25 Rx metoprolol tartrate 50 mg tablet 50 mg PO BID #60 tabs 05/12/25 Rx lisinopril 5 mg tablet 5 mg PO QDAY #30 tabs 05/30/25 Rx furosemide 40 mg tablet 40 mg PO DAILY #90 tabs 06/19/25 0 07/04/25 Rx Ejection fraction %: 55 Have you fallen in the past year?: No PFSH Medical History Cardiac LV ejection fraction 10-20% History of COPD PAF (paroxysmal atrial fibrillation) CKD (chronic kidney disease), stage II Thrombocytopenia COPD (chronic obstructive pulmonary disease) Morbid obesity HLD (hyperlipidemia) HTN (hypertension) Tobacco use Anxiety and depression Cancer Surgical History History of appendectomy Family History Father History of blood clots Lupus Bowel disease Colon cancer Skin cancer CVA (cerebral vascular accident) Mother Hypertension Social History household members: spouse Smoking Status: Current every day smoker tobacco type: cigarettes alcohol intake: never substance use type: does not use additional social history: DOES USE ASPIRIN ROS Const Const: Negative for fatigue, weakness, headache(s) or frequent falls Eyes Eyes: Negative for blurry vision ENT ENT: Negative for headache(s), dizziness or Nosebleed/epistaxis Cardio Chest Pain: No Palpitations: No Edema: None Muscle aches with walking: None Resp Respiratory: Negative for SOB with activity, SOB at rest or SOB orthopnea SOB lying down GI GI: Negative nausea, vomiting, heartburn, bright, red blood in stools or black,tarry stools : Negative for hematuria Neuro Neuro: Negative for dizziness, lightheadedness, near syncope, syncope, frequent falls, headache(s), weakness or blurry vision Endo Endo: Negative for fatigue Cardiology Exam Const Appearance: cooperative, comfortable, no acute distress and well developed; Negative diaphoretic or ill appearing Nu (more content not included)... Normal [facility] Echo, Limited Studyon 2024 Echo, Limited Study [facility] [address] [place] [address] Echo, Limited Study 07/02/25 1507 MR#: [id number] Acct: [id number] Name: KELVIN LEE JrSavita Rep #: [id number] : 1955 70 From: Carlton Keyes MD Attending Dr: Ariane Perez PIANO REGULATOR-C Status: SEAN WEBB Ordering Dr: Ariane Perez NP [employer]ANO REGULATOR-C Date: 07/02/25 Location: [facility] Sex: M C Admitted: Reason For Study Reason For Study: CONGESTIVE HEART FAILURE Procedure This was a limited 2D transthoracic echocardiogram. Exam performed in department. Left Ventricle Normal LV size. Left ventricular systolic function is normal. The left ventricular ejection fraction is 55 %. No regional wall motion abnormalities noted. Right Ventricle Normal RV size. Normal systolic function. Atria Normal left atrium. Normal right atrium. Mitral Valve Normal mitral valve. Tricuspid Valve Normal tricuspid valve. Aortic Valve The aortic valve is not well visualized. Pulmonic Valve Normal pulmonic valve. Great Vessels Mild to moderately dilated aortic root. The pulmonary artery is normal size. Inferior vena cava collapse with respiration. Pericardium/Pleural No pericardial effusion. MMode/2D Measurements Calculations LVIDd: 5.0 cm IVSd: 1.2 cm Ao root diam: 4.0 cm LVIDs: 3.9 cm LVPWd: 1.0 cm RVDd: 2.7 cm FS: 22.4 % LAV(MOD-bp): 67.1 ml LVAd ap4: 37.2 cm2 LVAd ap2: 32.2 cm2 LAV(MOD-bp) Indexed: 31.2 ml/m2 LVLd ap4: 8.7 cm LVLd ap2: 8.6 cm LAV(MOD-sp2): 64.3 ml EDV(MOD-sp4): 131.4 ml EDV(MOD-sp2): 103.0 ml LAV(MOD-sp4): 67.3 ml EDV(sp4-el): 134.5 ml EDV(sp2-el): 101.7 ml LVAs ap4: 22.4 cm2 LVAs ap2: 18.9 cm2 LVLs ap4: 7.2 cm LVLs ap2: 7.2 cm ESV(MOD-sp4): 59.1 ml ESV(MOD-sp2): 44.9 ml ESV(sp4-el): 59.1 ml ESV(sp2-el): 42.5 ml EF(MOD-sp4): 55.0 % EF(MOD-sp2): 56.5 % EF(sp4-el): 56.0 % SV(MOD-sp4): 72.3 ml SV(MOD-sp2): 58.2 ml SV(sp4-el): 75.4 ml SI(MOD-sp4): 33.6 ml/m2 SI(MOD-sp2): 27.0 ml/m2 LA A4 area: 20.6 cm2 RA A4 area: 14.0 cm2 ECHO/Echo, Limited Study Interpretation Summary Normal LV size. Left ventricular systolic function is normal. The left ventricular ejection fraction is 55 %. No regional wall motion abnormalities noted. Ordering Physician: Ariane Perez Referring Physician: Lee Mathews Performed By: Ella Peterson RDCS, RVT 07/02/25 1627 Date Carlton Keyes MD CC: VERONICA Perez; Dr. Lee Mathews MD Date Dictated: 07/02/25 150 Date Transcribed: 07/02/25 1627 Welfare Specialist: Signed Normal [facility] Limited echocardiogram repor tOrdered By: Carlton Keyes on 07-02-2025 Study report [facility] [place] [address] Echo, Limited Study 07/02/25 1507 MR#: [id number] Acct: [id number] Name: KELVIN LEE Jr. Rep #:[id number] : 1955 70 From: Carlton Henry Attending Dr: Ariane Perez, PIANO REGULATOR-C S tatus: REG CLI Ordering Dr: Ariane Perez PIANO REGULATOR PIANO REGULATOR-C Benjamin e: 07/02/25 Location: [facility] Sex: M C Admitted: Reason For Study Reason For Study: CONGESTIVE HEART FAILURE Procedure This was a limited 2D transthoracic echocardiogram. Exam performed in department. Left Ventricle Normal LV size. Left ventricular systolic function is normal. The left ventricular ejection fraction is 55 %. No regional wall motion abnormalities noted. Right Ventricle Normal RV size. Normal systolic function. Atria Normal left atrium. Normal right atrium. Mitral Valve Normal mitral valve. Tricuspid Valve Normal tricuspid valve. Aortic Valve The aortic valve is not well visualized. Pulmonic Valve Normal pulmonic valve. Great Vessels Mild to moderately dilated aortic root. The pulmonary artery is normal size. Inferior vena cava collapse with respiration. Pericardium/Pleural No pericardial effusion. MMode/2D Measurements & Calculations LVIDd: 5.0 cm IVSd: 1.2 cm Ao root diam: 4.0 cm LVIDs: 3.9 cm LVPWd: 1.0 cm RVDd: 2.7 cm FS: 22.4 % ___ LAV(MOD-bp): 67.1 ml LVAd ap4: 37.2 cm2 LVAd ap2: 32.2 cm2 LAV(MOD-bp) Indexed: 31.2 ml/m2 LVLd ap4: 8.7 cm LVLd ap2: 8.6 cm LAV(MOD-sp2): 64.3 ml EDV(MOD-sp4): 131.4 ml EDV(MOD-sp2): 103.0 ml LAV(MOD-sp4): 67.3 ml EDV(sp4-el): 134.5 ml EDV(sp2-el): 101.7 ml LVAs ap4: 22.4 cm2 LVAs ap2: 18.9 cm2 LVLs ap4: 7.2 cm LVLs ap2: 7.2 cm ESV(MOD-sp4): 59.1 ml ESV(MOD-sp2): 44.9 ml ESV(sp4-el): 59.1 ml ESV(sp2-el): 42.5 ml EF(MOD-sp4): 55.0 % EF(MOD-sp2): 56.5 % EF(sp4-el): 56.0 % SV(MOD-sp4): 72.3 ml SV(MOD-sp2): 58.2 ml SV(sp4-el): 75.4 ml SI(MOD-sp4): 33.6 ml/m2 SI(MOD-sp2): 27.0 ml/m2 __ LA A4 area: 20.6 cm2 RA A4 area: 14.0 cm2 ECHO/Echo, Limited Study Interpretation Summary Normal LV size. Left ventricular systolic function is normal. The left ventricular ejection fraction is 55 %. No regional wall motion abnormalities noted. Ordering Physician: Ariane Perez Referring Physician: Lee Mathews Performed By: Ella Peterson, CHERELLE, RVT 07/02/25 1627 Date _ Carlton Keyes MD CC: PIANO REGULATOR-C Ariane Perez; Dr. Lee Mathews MD ~ Date Dictated: 07/02/25 1507 Date Transcribed: 07/02/251626 Welfare Specialist: Signed [facility] Work Phone: No Panel InformationOrdered By: Margarito Marshall on 05-28-2025 [facility] [address] [place] [address] CR - Individual Treatment Plan MR#: [id number] Acct: [id number] Name: KELVIN LEE Jr. Rep #:[id number] : 1955 70 From: Margarito Rodney BS, RVT PCP: Dr. Lee Mathews MD DOS: 05/28/25 Exercise - Initial Assessment Visit Session #:: 8 Physician Prescribed Exercise Modalities: Treadmill, Schwinn Airdyne AD-7 and SciFit Stepper Nutrition - Initial Assessment Weight Mgt (Other Care) Height: 5 ft 8 in Weight:: 227 lb 8 oz BMI: 34.5 Core - Initial Assessment Tobacco Use Years Smokin (Pt smokes 1 cigar a day.) Psychosocial - Initial Assess Target Goals Target Goals Referral to Behavioral Health PS - Interventions: Yes: Attend Stress Management Classes Patient Health Questionnaire PHQ-9 Screening 30-Day Re-eval Assessment: 1. Little interest or pleasure in doing things: Not at all 2. Feeling down, depressed, or hopeless: Not at all 3. Trouble falling or staying asleep, or sleeping too much: Several days 4. Feeling tired or having little energy: Several days 5. Poor appetite or overeating: Not at all 6. Feeling bad about yourself -- or that you are a failure or have let yourself or your family down: Not at all 7. Trouble concentrating on things, such as reading the newspaper or watching television: Not at all 8. Moving or speaking so slowly that other people could have noticed. Or the opposite - being so fidgety or restless that you have been moving around a lot more than usual: Not at all 9. Thoughts that you would be better off , or of hurting yourself in some way: Not at all How difficult have these problems made it for you to do your work, take care of things at home, or get along with other people?: Somewhat difficult Total Score: 2 Self-Efficacy 6-Item Scale 30-Day Re-eval Assessment: We would like to know how confident you are in doing certain activities. Please select your confidence level for: Fatigue Select Number: 7 Physical Discomfort or Pain Select Number: 10 Emotional Distress Select Number: 9 Other Symptoms or Health Problems Select Number: 10 Different Tasks and Activities Select Number: 10 Medication Select Number: 10 Total Score:: 9 Nutrition Survey Nutrition Survey Instructions Scoring Instructions Exercise - 30-day Assessment Visit Date of Eval: 05/28/25 Session #:: 8 Physician Prescribed Exercise Modalities: Treadmill, Schwinn Airdyne AD-7 and SciFit Stepper Frequency: 3x/week for 12 weeks [36 sessions] Intensity: 60-80% of age predicted maximum heart rate reserve Duration: 30 - 45 minutes Current METSs:: 4.4 Target Heart Rate:: 89-112 Current RPE:: 12-12.5 Maximum Excercise HR:: 79 Resting Blood Pressure: 108/72 Maximum Exercise Blood Pressure: 112/70 EKG Type: SB to NSR w/occas PVC's short episode of bigeminy, rare PAC's Outcomes & Goals Goals:: Verbalizes understanding of THR, RPE & goal METS by session 6, Documentsin home exercise log/reports 30 min aerobic 5 day/wk by DC, Demonstrates accurate pulse taking by DC and Other additional outcome/goals: see below Intervention & Plan Exercise Program Goals: Instruct on personal THR & RPE, Instruct on MET level & personal MET goal, Show patient to take own pulse /validate performance until accurate, Instruct on home exercise and Other additional plan/int Physical Activity Home Exercise Physical Activity - Home Exercise: Safe Exercise, Warm-up, Self-monitoring, Cool-Down, Home Exercise > 30 min Daily and Sitting Time <3 hours/daily Outcomes & Goals Outcomes/Goals: Demonstrates correct Warm-up/exercise Cool-Down (S3) if = 2.5 METs, Verbalizes symptoms of exercise intolerance by Session 3 (S3), Demonstratesafe equipment use (S3) & follows exercise prescrition (6) and Other: See below Intervention & Plan Plan/Intervention: Instruct warm-up & cool-down if exercising at > 2 METs, Instruct on symptoms of exercise intolerance & actions to take, Instruct & monitor on saf, Assess intial functional capacity & safety risk and Other See below 30-day Reassessments 30 day Reassessments:: Progressing Reassessment Notes & Comments:: RPE explained to pt. Pt demonstrates understanding in his daily sessions. Exercise - 60-day Assessment Physician Prescribed Exercise Modalities: Treadmill, Schwinn Airdyne AD-7 and SciFit Stepper Exercise - 90-day Assessment Physician Prescribed Exercise Modalities: Treadmill, Schwinn Airdyne AD-7 and SciFit Stepper Exercise - Final/Discharge Physician Prescribed Exercise Modalities: Treadmill, Schwinn Airdyne AD-7 and SciFit Stepper Nutrition - 30-Day Assessment Program Goals Nutrition Program Goals Patient has diagnosis of Hyperlipidemia (ICD E78)?: No Visit Date of Eval: 05/28/25 Session #:: 8 Cholesterol/Lipids (Other Core Measures) Determine presence & major risk factors that modify LDL goal: Cigarette smoking,Hypertension or hypertensive medication, Low HDL cholesterol <40 mg/dL*, Family history of premature CHD in Male < 55 years: female <65 yearsFa and Age men > 45ye (more content not included)... [facility] Cardiology Visit Reporton Cardiology Visit Report [facility] [address] [place] [address] OFFICE VISIT Date of Service: 05/27/25 MR#: [id number] Acct: [id number] Name: KELVIN LEE Jr. Rep #: [id number] : 1955 Provider: FELICIA Soto Age/Sex: 70/M Location: [facility] [place] [facility] Status: Signed HPI HPI History of Present Illness Details: Kelvin Lee Jr is a 70-year-old male who presents to office today for follow-up for monitoring of his cardiovascular health. Patient presented to the emergency department 03/20/2025 with concerns of shortness of breath and bilateral lower extremity edema. His BNP was elevated at 8957. EKG demonstrated atrial fibrillation with RVR. Patient was admitted for further evaluation. His echocardiogram 03/21/2025 demonstrated decreased ejection fraction at 10-15%, moderately dilated right ventricle and mildly enlarged left and right atrium. His cardiac catheterization 04/03/2025 demonstrated normal coronary arteries. Patient was initiated on guideline directed medical therapy and discharged home with follow-up. Patient underwent cardioversion 05/05/2025. His EKG in office 1 week following on 05/12/2025 demonstrated sinus bradycardia with occasional PVCs at a rate of 51 bpm. He was instructed to decrease his metoprolol to tartrate to 50 mg twice daily and discontinue his digoxin. Upon presentation to office today, he reports his blood pressure has improved since decreasing his metoprolol dose. His blood pressure at home is reported to be on average 120s over 70s and heart rates in the 60s???70s. He reports his bilateral lower extremity edema worsens when he is on his feet a lot but overall seems to be better. His lightheaded and dizziness has improved. Further ROS below. Intake Vital Signs 05/05/25 11:28 05/27/25 13:59 Height 5 ft 8 in 5 ft 8 in Weight: 255 lb 226 lb BMI 34.3 BP 103/68 Blood Pressure Location Lt brachial Position Sitting Respiration 18 Pulse 60 Pulse Source Monitor Intake Visit Reasons: 2 W FU/EKG NEEDED Foam Fabricator Required: No Accompanied by: Is patient in pain?: No Allergies sertraline (From Zoloft) Allergy (Verified 05/27/25 13:59) Other Medications ???Medication ???Instructions ???Recorded ???Confirmed ???Type albuterol sulfate 90 mcg/actuation 2 puff inhalation 4X/DAY PRN PRN 03/20/25 05/27/25 History aerosol inhaler shortness of breath or wheezing apixaban 5 mg tablet (Eliquis) 5 mg PO BID blood thinner #60 tabs 04/03/25 05/27/25 Rx empagliflozin 10 mg tablet 10 mg PO DAILY #30 tabs 04/03/25 0 05/27/25 Rx (Jardiance) furosemide 40 mg tablet 40 mg PO DAILY #30 tabs 04/03/25 0 05/27/25 Rx spironolactone 25 mg tablet 25 mg PO DAILY #30 tabs 04/03/25 0 05/27/25 Rx metoprolol tartrate 50 mg tablet 50 mg PO BID #60 tabs 05/12/2507/14 Rx lisinopril 5 mg tablet 5 mg PO QDAY #30 tabs 05/30/25 Rx Have you fallen in the past year?: No PFSH Medical History Cardiac LV ejection fraction 10-20% History of COPD PAF (paroxysmal atrial fibrillation) CKD (chronic kidney disease), stage II Thrombocytopenia COPD (chronic obstructive pulmonary disease) Morbid obesity HLD (hyperlipidemia) HTN (hypertension) Tobacco use Anxiety and depression Cancer Surgical History History of appendectomy Family History Father History of blood clots Lupus Bowel disease Colon cancer Skin cancer CVA (cerebral vascular accident) Mother Hypertension Social History household members: spouse Smoking Status: Current every day smoker tobacco type: cigarettes alcohol intake: never substance use type: does not use additional social history: DOES USE ASPIRIN ROS Const Const: Positive for fatigue; Negative for weakness Eyes Eyes: Negative for change in vision ENT ENT: Positive for dizziness and balance problems (due to ear problems on left) Cardio Chest Pain: No Palpitations: No Edema: Bilateral (improved) Resp Respiratory: Negative for SOB with activity, SOB at rest or SOB orthopnea SOB lying down GI GI: Negative nausea or heartburn Musc Musc: Positive for balance problems (due to ear problems on left) Neuro Neuro: Positive for dizziness; Negative for lightheadedness, near syncope, syncope or weakness Endo Endo: Positive for fatigue Cardiology Exam Const Appearance: cooperative, comfortable, no acute distress and well developed; Negative diaphoretic or ill appearing Nutritional Appearance: overweight Orientation: alert and oriented x3 Ambulating without assistive device Head Head: normal to inspection, normocephalic an (more content not included)... Normal [facility] Anion gap in Serum or Plasma Ordered By: Carlton Keyes on 05-05-2025 Anion gap [Moles/Vol] 10 mmol/L 04-03 [facility] BUN/creatinine ratioOrdered By: Carlton Keyes on 05-05-2025 Urea nitrogen/Creatinine [Mass ratio] 17.1 mg/mg 09-08 [facility] Basic Metabolic Profile (BMP )on 05-05-2025 BUN/CRE 17.1 RATIO Normal 09-08 [facility] Comment on above: Performed By: #### L 300.4310, L300.3900 #### [facility] [address] [place], [address] Calcium [Mass/Vol] 8.8 mg/dL Normal 7.6-11.0 [facility] Comment on above: Performed By: #### L 300.4310, L300.3900 #### [facility] [address] [place], [address] Chloride [Moles/Vol] 98 mmol/L Normal 98-108 [facility] Comment on above: Performed By: #### L 300.4310, L300.3900 #### [facility] [address] [place], [address] CO2 [Moles/Vol] 26.0 mmol/L Normal 21.0-32.0 [facility] Comment on above: Performed By: #### L 300.4310, L300.3900 #### [facility] [address] [place], [address] Creatinine [Mass/Vol] 0.99 mg/dL Normal 0.70-1.20 [facility] Comment on above: Performed By: #### L 300.4310, L300.3900 #### [facility] [address] [place], [address] ECRCL 84.51 ml/min Normal 50-250 [facility] Comment on above: Performed By: #### L 300.4310, L300.3900 #### [facility] [address] [place], [address] GAP 10 Normal 5-15 [facility] Comment on above: Performed By: #### L 300.4310, L300.3900 #### [facility] [address] [place], [address] GFR/1.73 sq M.predicted among non-blacks MDRD (S/P/Bld) [Vol rate/Area] 81 mL/min/{1.73_m2} Normal >60 [facility] Comment on above: Result Comment: mL/m in/1.73m2 CKD-EPI Creatinine Equation (2020) Performed By: #### L 300.4310, L300.3900 #### [facility] [address] [place], [address] Glucose [Mass/Vol] 100 mg/dL High 70-99 [facility] Comment on above: Performed By: #### L 300.4310, L300.3900 #### [facility] [address] [place], [address] Potassium [Moles/Vol] 4.8 mmol/L Normal 3.3-5.1 [facility] Comment on above: Performed By: #### L 300.4310, L300.3900 #### [facility] [address] [place], [address] Sodium [Moles/Vol] 134 mmol/L Normal 133-145 [facility] Comment on above: Performed By: #### L 300.4310, L300.3900 #### [facility] [address] [place], [address] Urea nitrogen [Mass/Vol] 17 mg/dL Normal 4-19 [facility] Comment on above: Performed By: #### L 300.4310, L300.3900 #### [facility] [address] [place], [address] CBC-Complete Blood Cnt No Di ffon 05-05-2025 Erythrocyte distribution width (RBC) [Ratio] 14.2 % Normal 11.6-14.6 [facility] Comment on above: Performed By: #### L 300.4310, L300.3900 #### [facility] [address] [place], [address] Hematocrit (Bld) [Volume fraction] 51.1 % Normal 40-54 [facility] Comment on above: Performed By: #### L 300.4310, L300.3900 #### [facility] [address] [place], [address] Hemoglobin (Bld) [Mass/Vol] 17.3 g/dL High 13.0-16.5 [facility] Comment on above: Performed By: #### L 300.4310, L300.3900 #### [facility] [address] [place], [address] MCH (RBC) [Entitic mass] 31.4 pg Normal 27.0-32.0 [facility] Comment on above: Performed By: #### L 300.4310, L300.3900 #### [facility] [address] [place], [address] MCHC (RBC) [Mass/Vol] 33.9 g/dL Normal 32-36 [facility] Comment on above: Performed By: #### L 300.4310, L300.3900 #### [facility] [address] [place], [address] MCV (RBC) [Entitic vol] 92.7 fL Normal 80-94 [facility] Comment on above: Performed By: #### L 300.4310, L300.3900 #### [facility] [address] [place], [address] Platelet mean volume (Bld) [Entitic vol] 8.9 fL Normal 6.2-12.0 [facility] Comment on above: Performed By: #### L 300.4310, L300.3900 #### [facility] [address] [place], [address] Platelets (Bld) [#/Vol] 118 10*3/uL Low 150-450 [facility] Comment on above: Performed By: #### L 300.4310, L300.3900 #### [facility] [address] [place], [address] RBC (Bld) [#/Vol] 5.51 10*6/uL Normal 4.6-6.2 [facility] Comment on above: Performed By: #### L 300.4310, L300.3900 #### [facility] [address] [place], [address] RDW SD 48.4 fl High 35.1-43.9 [facility] Comment on above: Performed By: #### L 300.4310, L300.3900 #### [facility] [address] [place], [address] WBC (Bld) [#/Vol] 6.8 10*3/uL Normal 4.4-11.0 [facility] Comment on above: Performed By: #### L 300.4310, L300.3900 #### [facility] [address] [place], [address] Carbon dioxide, total [Moles /volume] in Central venous bloodOrdered By: [place] Stephy on 05-05-2025 CO2 [Moles/Vol] 26.0 mmol/L 21.0-32.0 [facility] Chloride assayOrdered By: Cy ril Stephy on 05-05-2025 Chloride [Moles/Vol] 98 mmol/L 98-108 [facility] Erythrocyte distribution wid th ratioOrdered By: [place] Stephy on 05-05-2025 Erythrocyte distribution width (RBC) [Ratio] 14.2 % 11.6-14.6 [facility] Erythrocyte distribution wid th standard deviationOrdered By: Carlton Stephy on 05-05-2025 Erythrocyte distribution width (RBC) [Ratio] 48.4 fl High 35.1-43.9 [facility] Glomerular filtration rate ( GFR) estimation/1.73 sq m using serum, plasma, or whole bOrdered By: [place] Stephy on 05-05-2025 GFR/1.73 sq M.predicted among non-blacks MDRD (S/P/Bld) [Vol rate/Area] 81 mL/min/{1.73_m2} >60 [facility] Comment on above: mL/min/1.73m2 CKD-EP I Creatinine Equation (2020) Hematocrit Auto (Bld) [Volum e fraction]Ordered By: Carlton Keyes on 05-05-2025 Hematocrit (Bld) [Volume fraction] 51.1 % 40-54 [facility] Hemoglobin measurementOrdere d By: [place] Stephy on 05-05-2025 Hemoglobin (Bld) [Mass/Vol] 17.3 g/dL High 13.0-16.5 [facility] MCV (mean corpuscular volume ) determinationOrdered By: Carlton Stephy on 05-05-2025 MCV (RBC) [Entitic vol] 92.7 fL 80-94 [facility] Mean corpuscular hemoglobin (MCH) determinationOrdered By: [place] Stephy on 05-05-2025 MCH (RBC) [Entitic mass] 31.4 pg 27.0-32.0 [facility] Mean corpuscular hemoglobin concentration (MCHC) determinationOrdered By: [place] Stephy on 05-05-2025 MCHC (RBC) [Mass/Vol] 33.9 g/dL 32-36 [facility] Mean platelet volume determi nationOrdered By: [place] Stephy on 05-05-2025 Platelet mean volume (Bld) [Entitic vol] 8.9 fL 6.2-12.0 [facility] Platelet countOrdered By: Cy erick Keyes on 05-05-2025 Platelets (Bld) [#/Vol] 118 10*3/uL Low 150-450 [facility] Potassium measurement (mass/ volume)Ordered By: Carlton Stephy on 05-05-2025 Potassium (Unsp spec) [Mass/Vol] 4.8 mmol/L 3.3-5.1 [facility] Procedure Reporton Procedure Report [facility] Medical Records Department [address] [place] [address] Procedure Report 05/05/25 1259 MR#: [id number] Acct: [id number] Name: KELVIN LEE JrSavita Rep #: [id number] : 1955 69 From: Nigel Read DO PCP: Dr. Lee Mathews MD [place] [facility] [facility] Procedures Pulmonary Pulmonary Procedures /Diagnostic Testin Con Sedation Non-invasive Procedural Procedure Information Date of Procedure: 05/05/25 Description of procedure: CONSCIOUS SEDATION REPORT DATE OF SERVICE: May 05, 2025 BRIEF HISTORY OF PRESENT ILLNESS: The patient is a 69-year-old male who presented to [facility] to undergo an elective outpatient cardioversion due to underlying atrial fibrillation. The patient is systemically anticoagulated on Eliquis. His last surface echocardiogram demonstrated an ejection fraction of approximately 15%. The patient denied any prior anesthetic complications. He does report a history of COPD, but denies ever having been diagnosed with YONY. PHYSICAL EXAMINATION: VITAL SIGNS: Reviewed and were acceptable. GENERAL: The patient is a male, in no apparent distress, speaking in full sentences. HEENT: Normocephalic, atraumatic. Joey membranes are moist and pink. Good mouth opening noted. Trachea is midline. CHEST: S1, S2 irregularly irregular. No murmurs, rubs or gallops were noted. LUNGS: Clear to auscultation bilaterally without appreciable wheezes, rales or rhonchi. ABDOMEN: Soft, nontender, nondistended. Positive bowel sounds. EXTREMITIES: There is no clubbing, cyanosis or edema. Exfoliative dermatitis on trunk and extremities. ASA Class: II DESCRIPTION OF PROCEDURE: After confirmation of informed consent, the patient's anesthesia plan was reviewed in detail. Propofol was chosen. Risks and benefits were reviewed and the patient agreed to proceed. At 1231, the patient was given 6 mg of etomidate. The patient achieved an appropriate level of sedation and was given a 300 joule synchronized cardioversion by Dr. Keyes at the bedside. This was successful in achieving normal sinus rhythm. The patient was monitored until 1245, at which time he reached his baseline mental status and function. The patient tolerated the procedure well. COMPLICATIONS: None ESTIMATED BLOOD LOSS: None RECOMMENDATIONS: Okay to recover in usual fashion. 05/05/25 1301 Cosigner Signature (if applicable): CC: Dr. Lee Mathews MD; Dr. Carlton Keyes MD; Dr. Nigel Read DO Signed Normal [facility] Procedure Report [facility] Medical Records Department [address] [place] [address] Procedure Report 05/05/25 1250 MR#: [id number] Acct: [id number] Name: KELVIN LEE Jr. Rep #: [id number] : 1955 69 From: Carlton Keyes MD PCP: Dr. Lee Mathews MD Status:[facility] Location: [facility] Non-invasive Procedural Procedure Information Date of Procedure: 05/05/25 Pre-Procedure Diagnosis: Atrial Fibrillation Post-Procedure Diagnosis: same Procedure Performed:: DC cardioversion Procedure Time Out: 11:30 Procedure Start Time: 12:30 Procedure Stop Time: 12:35 Description of procedure: DC cardioversion The patient was brought to the cardiac catheterization lab in the postabsorptive nonsedated state. Informed consent was obtained. The patient was seen by Dr. Read of the critical care division. Anterior-posterior pads were applied. The patient was administered 6 mg of intravenous etomidate and then 300 J of synchronized DC cardioversion energy biphasic were applied with prompt reversal to sinus rhythm. Procedure findings: Successful cardioversion from atrial fibrillation to sinus rhythm. Follow-up as per office visit. 05/05/25 1253 Cosigner Signature (if applicable): CC: Dr. Lee Mathews MD; Dr. Carlton Keyes MD Signed Normal [facility] RBC Auto (Bld) [#/Vol]Ordere d By: Carlton Keyes on 05-05-2025 RBC (Bld) [#/Vol] 5.51 10*6/uL 4.6-6.2 [facility] Serum creatinine measurement (mass/volume)Ordered By: Carlton Keyes on 05-05-2025 Creatinine [Mass/Vol] 0.99 mg/dL 0.70-1.20 [facility] Serum glucose measurement (m ass/volume)Ordered By: Carlton Keyes on 05-05-2025 Glucose [Mass/Vol] 100 mg/dL High 70-99 [facility] Serum or plasma calcium jennifer urement (mass/volume)Ordered By: Carlton Keyes on 05-05-2025 Calcium [Mass/Vol] 8.8 mg/dL 7.6-11.0 [facility] Serum or plasma urea nitroge n measurement (mass/volume)Ordered By: Carlton Keyes on 05-05-2025 Urea nitrogen [Mass/Vol] 17 mg/dL 4-19 [facility] Sodium levelOrdered By: Cornel Keyes on 05-05-2025 Sodium [Moles/Vol] 134 mmol/L 133-145 [facility] White blood cell (WBC) count Ordered By: Carlton Keyes on 05-05-2025 WBC (Bld) [#/Vol] 6.8 10*3/uL 4.4-11.0 [facility] Cardiac rehabilitation evalu ation reportOrdered By: Margarito Marshall on 05-04-2025 Study report [facility] Cardiac Rehab [address] [place] [address] CR - History & Physical MR#: [id number] Acct: [id number] Name: KELVIN LEE JrSavita Rep #:[id number] : 1955 69 From: Margarito Rodney BS, RVT PCP: Dr. Lee Mathews MD DOS: 05/01/25 CR - History & Physical General Arrival date:: 05/01/25 Arrival time:: 12:59 Date of Referral:: 03/24/25 Date of CR Evaluation:: 05/01/25 Referring Physician: Dr. Keyes Primary Diagnosis: HF w/EF<35% History of Present Cardiac Event Onset Date Heart Failure EF <35%:: Yes (onset 03/21/25) Medications Ambulatory Orders ?Medication ?Instructions ?Recorded albuterol sulfate 90 mcg/actuation 2 puff inhalation 4 X/DAY PRN PRN 03/20/25 aerosol inhaler shortness of breath or wheez ing sennosides 8.6 mg-docusate sodium 2 tab PO BID PRN PRN Constipation 03/27/25 50 mg tablet (Stimulant Laxative #0 tabs Plus) apixaban 5 mg tablet (Eliquis) 5 mg PO BID blood thinn er #60 tabs 04/03/25 digoxin 125 mcg (0.125 mg) tablet 125 mcg PO DAILY #30 tabs 04/03/25 empagliflozin 10 mg tablet 10 mg PO DAILY #30 tabs (Jardiance) furosemide 40 mg tablet 40 mg PO DAILY #30 tabs 03/2025 lisinopril 5 mg tablet 5 mg PO BID #60 tabs 5 metoprolol tartrate 100 mg tablet 100 mg PO BID #60 ta bs 04/03/25 spironolactone 25 mg tablet 25 mg PO DAILY #30 tabs Allergies Allergies sertraline (From Zoloft) Allergy (Verified 04/03/25 13:56) Other CP AND SOB Sleep Disorder Evaluation Hx of Sleep Apnea: No Do you snore loudly (louder than talking or can be heard through closed doors)?:No Do you often feel tired/ fatigued/ sleepy during daytime?: No Has anyone observed you stop breathing during sleep?: No History of Hypertension (for STOP score): No STOP Results: Negative Advanced Directives Advanced Directives Do you have a Healthcare Power of Ecommerce Merchandising Manager?: No Living Will: No Advance Directives Information Provided: No Advance Directives on File: No DNR Order?:: No Past Medical History Covid-19 Screening Physicial Symptoms Other Clinical Concerns Exposure Risk Pertinent Comorbidities 65 years or older:: Yes Has a serious heart condition:: Yes Past Medical Illness Medical History PAF (paroxysmal atrial fibrillation) CKD (chronic kidney disease), stage II Thrombocytopenia COPD (chronic obstructive pulmonary disease) Morbid obesity HLD (hyperlipidemia) HTN (hypertension) Tobacco use Anxiety and depression Cancer Past Surgical History Surgical History History of appendectomy Surgical History: no surgical history Family History Summary Family History Father History of blood clots Lupus Bowel disease Colon cancer Skin cancer CVA (cerebral vascular accident) Mother Hypertension Social History Smoking History Smoking Status: Current every day smoker (smoking cigars at this time) Years Smokin Substance Abuse Hx Substance Use: No Occupation Occupation (List type of work in comments):: Retired Social Environment Status Marital Status: Current Living Arrangements Living Environment:: Spouse Children How many children do you have?: 4 Do any of your children live nearby?: Yes Safety Do you feel safe in your surroundings?: Yes Assistance Do you need any assistance at home?: no Review of Systems Review of Systems Hints Review of Present Symptoms: Reports Fatigue, Heart Arrhythmia/Irregular ities, Appetite - Normal and Appetite - Special Diet; Denies Shortness of Breath at Rest, Shortness of Breath with Exertion, PVD, Operative Discomfort, Angina, Wound Healing, Dizziness/Lightheade dness, Sleep - Normal or Sexual Changes Pain Is Patient Pain Free?: No Pain Location: lower extremity Pain Level: 5/10 Risk Factor Assessment Chief Complaint Chief Complaint: HF w/EF<35% Vital Signs Pulse Ox: 98 Blood Pressure: 122/83 Pulse Pulse Rate: 95 Hypertension Blood Pressure Sitting - Right Arm: 122/83 Obesity Height: 5 ft 8 in Weight:: 225 lb Weight in Pounds: 225.0 lbs Body Mass Index (BMI): 34.2 Nutritional Referral for Obesity: No (declines) Physical Inactivity Physical Inactivity: Recreational activity Risk Stratification Risk Guidelines: Moderate Risk: Risk Factor for Dyslipidemia, Risk Factor for Diabetes, Risk Factor for Hypertension, Risk Factor for Sedentary Lifestyle and Risk Factor for Depression and Highest Risk: Risk Factor for Smoking and Risk Factor for Obesity For Smoking Smoking Risk Guidelines For Dyslipidemia Dyslipidemia Risk Guidelines For Diabetes Mellitus Diabetes Risk Guidelines For Obesity/Overweight Obesity/Overweight Risk Guidelines For Hypertension Hypertension Risk Guidelines For Sedentary Lifestyle Sedentary Lifestyle Risk Guidelines For Depression Depression Risk Guidelines Family History Family History Father History of blood clots Lupus Bowel d (more content not included)... [facility] No Panel InformationOrdered By: Margarito Marshall on 05-04-2025 [facility] Cardiac Rehab [address] [place] [address] CR - Individual Treatment Plan MR#: [id number] Acct: [id number] Name: KELVIN LEE Jr. Rep #:[id number] : 1955 69 From: Margarito Rodney BS, RVT PCP: Dr. Lee Mathews MD DOS: 05/01/25 Diagnosis General Information Admitting Diagnosis: HF w/EF<35% Personal Learning Style:: Audio/Visual Barriers to Learning: No Barriers Stage of change r/t lifestyle modifications:: Contemplation Gave educational material for:: Treating Heart Disease, How The Heart Works, What it means to have Heart Disease, How Coronary Artery Disease is Diagnosed, Heart Procedures, What Heart Medications Do, Risk Factors & Modifications, Living an Active Life, Nutrition, Emotions & Heart Disease, Stress Management & Relaxation and Sleep Disorders & Heart Disease Education/Goals Cardiac Rehabilitation Goals Personal Goals: Initial Assessment: Improve management of stress and emotions, Improve energy level, Get back to work, or to resume activities faster, Improve knowledge of cardiac disease, Improve muscle strength and endurance, Improve diet and eating habits (eat healthier), Control risk factors (learn risk factor modification) and Other goal: Scale for measuring improvement of personal goals Diagnosis & Disease Process Outcomes/Goals: Pt IDs own risk factors & lifestyle modifications by Session 10,Verbalizes symptoms of angina & response by session 3., Pt independently managesand Other Additional Outcomes/Goals: Plan/Interventions: Assist Pt to ID & engage in lifestyle modification to reduceCVD risk, Instruct on individual risk factors, Review symptoms of angina & emergency actions, Review secondary diagnosis & identify educational needs. and Other see comment 30 day Reassessments:: Not Met 30 day Reassessments:: Not Met 30 day Reassessments:: Not Met 30 day Reassessments:: Not Met Final Reassessments:: Not Met Safety Referral to Physical Therapy: No Referral to [facility] Case Management: No Fall Risk Assessed:: Yes Assistive Devices:: None Exercise - Initial Assessment Visit Date of Eval: 05/01/25 (initial eval) Mets: Pre-: >3 METS for 30 minutes by discharge, >5 METS for 30 minutes by discharge, >7 METS for 30 minutes by discharge and Unable to meet goal due to: (see comment below) Physician Prescribed Exercise Modalities: Treadmill, Rower, [employer] Aird[employer] AD-7, SciFit Stepper, [employer] Pro-II Ergometer and ZeerFit Lateral [place] Frequency: 3x/week for 12 weeks [36 sessions] Intensity: 60-80% of age predicted maximum heart rate reserve Duration: 30 - 45 minutes Current METSs:: 3 Target Heart Rate:: 89-112 Resting Blood Pressure: 122/83 EKG Type: A-fib w/ RVR, nonspecific T wave abnormality Outcomes & Goals Goals:: Verbalizes understanding of THR, RPE & goal METS by session 6, Documentsin home exercise log/reports 30 min aerobic 5 day/wk by DC, Demonstrates accurate pulse taking by DC and Other additional outcome/goals: see below Intervention & Plan Exercise Program Goals: Instruct on personal THR & RPE, Instruct on MET level & personal MET goal, Show patient to take own pulse /validate performance until accurate, Instruct on home exercise and Other additional plan/int Physical Activity Home Exercise Physical Activity - Home Exercise: Safe Exercise, Warm-up, Self-monitoring, Cool-Down, Home Exercise > 30 min Daily and Sitting Time <3 hours/daily Outcomes & Goals Outcomes/Goals: Demonstrates correct Warm-up/exercise Cool-Down (S3) if = 2.5 METs, Verbalizes symptoms of exercise intolerance by Session 3 (S3), Demonstratesafe equipment use (S3) & follows exercise prescrition (6) and Other: See below Intervention & Plan Plan/Intervention: Instruct warm-up & cool-down if exercising at > 2 METs, Instruct on symptoms of exercise intolerance & actions to take, Instruct & monitor on saf, Assess intial functional capacity & safety risk and Other See below Nutrition - Initial Assessment Program Goals Nutrition Program Goals Patient has diagnosis of Hyperlipidemia (ICD E78)?: No Visit Date of Eval: 05/01/25 (initial eval ) Cholesterol/Lipids (Other Core Measures) Determine presence & major risk factors that modify LDL goal: Cigarette smoking,Hypertension or hypertensive medication, Low HDL cholesterol <40 mg/dL*, Family history of premature CHD in Male < 55 years: female <65 yearsFa and Age men > 45years; women >/= 55 years Outcomes/Goals: Pt IDs own risk factors & lifestyle modifications by Session 10,Verbalizes symptoms of angina & response by session 3., Pt independently managesand Other Additional Outcomes/Goals: Intervention/Plan: Advocate for lipid panel cholesterol medication if applicable, Instruct on personal lipid levels & lipid goals/NCEP guidelines, Instruct on cholesterol and Other additional plan/int Referral to dietitian:: No (declines) Diabetes (Other Core Measures) Diabetes Type: Not Applicable Weight Mgt (Other Care) Height: 5 ft 8 in Weight:: 225 lb BMI: 34.2 Diagnosis Overweight/Obesity BMI> 30% ICD-10 E66: Yes Diagnosis High (more content not included)... [facility] CR - History AND Physicalon 05-01-2025 CR - History & Physical [facility] Card[facility] Re[facility] [address] [place] [address] CR - History Physical MR#: [id number] Acct: [id number] Name: KELVIN LEE Jr. Rep #: [id number] : 1955 69 From: Margarito MARTINEZ, RVT PCP: Dr. Lee Mathews MD DOS: 05/01/25 CR - History Physical General Arrival date:: 05/01/25 Arrival time:: 12:59 Date of Referral:: 03/24/25 Date of CR Evaluation:: 05/01/25 Referring Physician: Dr. Keyes Primary Diagnosis: HF w/EF<35% History of Present Cardiac Event Onset Date Heart Failure EF <35%:: Yes (onset 03/21/25) Medications Ambulatory Orders ???Medication ???Instructions ???Recorded albuterol sulfate 90 mcg/actuation 2 puff inhalation 4X/DAY PRN PRN 03/20/25 aerosol inhaler shortness of breath or wheezing sennosides 8.6 mg-docusate sodium 2 tab PO BID PRN PRN Constipation 03/27/25 50 mg tablet (Stimulant Laxative #0 tabs Plus) apixaban 5 mg tablet (Eliquis) 5 mg PO BID blood thinner #60 tabs 04/03/25 digoxin 125 mcg (0.125 mg) tablet 125 mcg PO DAILY #30 tabs 5 empagliflozin 10 mg tablet 10 mg PO DAILY #30 tabs 04/03/25 (Jardiance) furosemide 40 mg tablet 40 mg PO DAILY #30 tabs 04/03/25 lisinopril 5 mg tablet 5 mg PO BID #60 tabs 04/03/25 metoprolol tartrate 100 mg tablet 100 mg PO BID #60 tabs 04/03/25 spironolactone 25 mg tablet 25 mg PO DAILY #30 tabs 04/03/25 Allergies Allergies sertraline (From Zoloft) Allergy (Verified 04/03/25 13:56) Other CP AND SOB Sleep Disorder Evaluation Hx of Sleep Apnea: No Do you snore loudly (louder than talking or can be heard through closed doors)?: No Do you often feel tired/ fatigued/ sleepy during daytime?: No Has anyone observed you stop breathing during sleep?: No History of Hypertension (for STOP score): No STOP Results: Negative Advanced Directives Advanced Directives Do you have a Healthcare Power of Ecommerce Merchandising Manager?: No Living Will: No Advance Directives Information Provided: No Advance Directives on File: No DNR Order?:: No Past Medical History Covid-19 Screening Physicial Symptoms Other Clinical Concerns Exposure Risk Pertinent Comorbidities 65 years or older:: Yes Has a serious heart condition:: Yes Past Medical Illness Medical History PAF (paroxysmal atrial fibrillation) CKD (chronic kidney disease), stage II Thrombocytopenia COPD (chronic obstructive pulmonary disease) Morbid obesity HLD (hyperlipidemia) HTN (hypertension) Tobacco use Anxiety and depression Cancer Past Surgical History Surgical History History of appendectomy Surgical History: no surgical history Family History Summary Family History Father History of blood clots Lupus Bowel disease Colon cancer Skin cancer CVA (cerebral vascular accident) Mother Hypertension Social History Smoking History Smoking Status: Current every day smoker (smoking cigars at this time) Years Smokin Substance Abuse Hx Substance Use: No Occupation Occupation (List type of work in comments):: Retired Social Environment Status Marital Status: Current Living Arrangements Living Environment:: Spouse Children How many children do you have?: 4 Do any of your children live nearby?: Yes Safety Do you feel safe in your surroundings?: Yes Assistance Do you need any assistance at home?: no Review of Systems Review of Systems Hints Review of Present Symptoms: Reports Fatigue, Heart Arrhythmia/Irregular ities, Appetite - Normal and Appetite - Special Diet; Denies Shortness of Breath at Rest, Shortness of Breath with Exertion, PVD, Operative Discomfort, Angina, Wound Healing, Dizziness/Lightheade dness, Sleep - Normal or Sexual Changes Pain Is Patient Pain Free?: No Pain Location: lower extremity Pain Level: 5/10 Risk Factor Assessment Chief Complaint Chief Complaint: HF w/EF<35% Vital Signs Pulse Ox: 98 Blood Pressure: 122/83 Pulse Pulse Rate: 95 Hypertension Blood Pressure Sitting - Right Arm: 122/83 Obesity Height: 5 ft 8 in Weight:: 225 lb Weight in Pounds: 225.0 lbs Body Mass Index (BMI): 34.2 Nutritional Referral for Obesity: No (declines) Physical Inactivity Physical Inactivity: Recreational activity Risk Stratification Risk Guidelines: Moderate Risk: Risk Factor for Dyslipidemia, Risk Factor for Diabetes, Risk Factor for Hypertension, Risk Factor for Sedentary Lifestyle and Risk Factor for Depression and Highest Risk: Risk Factor for Smoking and Risk Factor for Obesity For Smoking Smoking Risk Guidelines For Dyslipidemia Dyslipidemia Risk Guidelines For Diabetes Mellitus Diabetes Risk Guidelines For Obesity/Overweight Obesity/Overweight Ri (more content not included)... Normal [facility] 12 Lead EKG performed by [facility] on 04-03-2025 12 Lead EKG performed by [facility] [address] [place] [address] 12 Lead EKG performed by [facility] 04/03/25 1418 MR#: [id number] Acct: [id number] Name: KELVIN LEE Rep #: [id number] : 1955 69 From: Ariane Perez NP [employer]O REGULATOR-C Attending Dr: Ariane Perez [employer]ATOR-C Status: DEP A NIMESH Ordering Dr: Ariane Perez NP [employer] Date: 04/03/25 Location: [facility] Sex: M C Admitted: [facility]/12 Lead EKG performed by [facility] ECG Report Interpretation ------Atrial fibrillation -Frequent pvcs -ventricular bigeminy -Incomplete right bundle branch block. - Nonspecific T-abnormality. ABNORMAL Electronically signed on 04/09/2025 at 09:42 by Carlton Keyeswood Software Version [id number] 04/09/25 0947 Date Ariane Perez NP [employer] CC: Dr. Lee Mathews MD Date Dictated: 04/03/251417 Date Transcribed: 04/03/251417 Welfare Specialist: LAMAR Signed Normal [facility] Absolute lymphocyte countOrd ered By: Ariane Perez on 04-03-2025 Lymphocytes Auto (Unsp spec) [#/Vol] 1.76 10*3/uL 0.83-4.51 [facility] Absolute neutrophil countOrd ered By: Ariane Perez on 04-03-2025 Neutrophils (Bld) [#/Vol] 4.6 10*3/uL 2.0-7.7 [facility] Anion gap in Serum or Plasma Ordered By: Ariane Perez on 04-03-2025 Anion gap [Moles/Vol] 8 mmol/L 04-03 [facility] Automated lymphocyte count a s percentage of total leukocytesOrdered By: Ariane Perez on 04-03-2025 Lymphocytes/100 WBC Auto (Unsp spec) 24.6 % [facility] BUN/creatinine ratioOrdered By: Ariane Perez on 04-03-2025 Urea nitrogen/Creatinine [Mass ratio] 24.2 mg/mg High 09-08 [facility] Basic Metabolic Profile (BMP )on 04-03-2025 BUN/CRE 24.2 RATIO High 09-08 [facility] Comment on above: Performed By: #### L 503.3737, L100.0100, L500.2500 ####[facility] [address] [place], [place], [id number] Calcium [Mass/Vol] 8.0 mg/dL Normal 7.6-11.0 [facility] Comment on above: Performed By: #### L 503.7505, L100.0100, L500.2500 ####[facility] [address] [place], [address] Chloride [Moles/Vol] 98 mmol/L Normal 98-108 [facility] Comment on above: Performed By: #### L 503.7505, L100.0100, L500.2500 ####[facility] [address] [place], [address] CO2 [Moles/Vol] 32.9 mmol/L High 21.0-32.0 [facility] Comment on above: Performed By: #### L 503.7505, L100.0100, L500.2500 ####[facility] [address] [place], [address] Creatinine [Mass/Vol] 1.18 mg/dL Normal 0.70-1.20 [facility] Comment on above: Performed By: #### L 503.7505, L100.0100, L500.2500 ####[facility] [address] [place], [address] GAP 8 Normal 5-15 [facility] Comment on above: Performed By: #### L 503.7505, L100.0100, L500.2500 ####[facility] [address] [place], [address] GFR/1.73 sq M.predicted among non-blacks MDRD (S/P/Bld) [Vol rate/Area] 66 mL/min/{1.73_m2} Normal >60 [facility] Comment on above: Result Comment: mL/m in/1.73m2 CKD-EPI Creatinine Equation (2020) Performed By: #### L 503.7505, L100.0100, L500.2500 ####[facility] [address] [place], [address] Glucose [Mass/Vol] 82 mg/dL Normal 70-99 [facility] Comment on above: Performed By: #### L 503.7505, L100.0100, L500.2500 ####[facility] [address] [place], [address] Potassium [Moles/Vol] 5.1 mmol/L Normal 3.3-5.1 [facility] Comment on above: Performed By: #### L 503.7505, L100.0100, L500.2500 ####[facility] [address] [place], [address] Sodium [Moles/Vol] 138 mmol/L Normal 133-145 [facility] Comment on above: Performed By: #### L 503.7505, L100.0100, L500.2500 ####[facility] [address] [place], [address] Urea nitrogen [Mass/Vol] 29 mg/dL High 4-19 [facility] Comment on above: Performed By: #### L 503.7505, L100.0100, L500.2500 ####[facility] [address] [place], [address] Basophil percentageOrdered B y: Ariane Perez on 04-03-2025 Basophils/100 WBC (Bld) 0.4 % 0-1 [facility] CBC W/Diff, Automatedon 03-20 PLT EST MOD DEC Normal ADEQ [facility] Comment on above: Performed By: #### L 503.7505, L100.0100, L500.2500 ####[facility] [address] [place], [address] Carbon dioxide, total [Moles /volume] in Central venous bloodOrdered By: Ariane Perez on 04-03-2025 CO2 [Moles/Vol] 32.9 mmol/L High 21.0-32.0 [facility] Cardiology Visit Reporton Cardiology Visit Report [facility] [address] [place] [address] OFFICE VISIT Date of Service: 04/03/25 MR#: [id number] Acct: [id number] Name: KELVIN LEE Jr. Rep #: [id number] : 1955 Provider: VERONICA brown Age/Sex: 69/M Location: [facility] Status: Signed HPI HPI History of Present [...] Pulse Oximetry (%) 98 Intake Visit Reasons: [facility] 03/27 CHF Foam Fabricator Required: No Is patient in pain?: No [...] tablet 5 mg PO BID #60 tabs 04/03/25 05/04/13 Rx metoprolol tartrate 100 mg tablet 100 [...] Positive f (more content not included)... Normal [facility] Chloride assayOrdered By: Shiv Perez on 04-03-2025 Chloride [Moles/Vol] 98 mmol/L 98-108 [facility] Eosinophil percentageOrdered By: Ariane Perez on 04-03-2025 Eosinophils/100 WBC (Bld) 0.7 % 0-5 [facility] Erythrocyte distribution wid th ratioOrdered By: Ariane Perez on 04-03-2025 Erythrocyte distribution width (RBC) [Ratio] 16.4 % High 11.6-14.6 [facility] Erythrocyte distribution wid th standard deviationOrdered By: Ariane Perez on 04-03-2025 Erythrocyte distribution width (RBC) [Ratio] 58.1 fl High 35.1-43.9 [facility] Glomerular filtration rate ( GFR) estimation/1.73 sq m using serum, plasma, or whole bOrdered By: Ariane Perez on 04-03-2025 GFR/1.73 sq M.predicted among non-blacks MDRD (S/P/Bld) [Vol rate/Area] 66 mL/min/{1.73_m2} >60 [facility] Comment on above: mL/min/1.73m2 CKD-EP I Creatinine Equation (2020) Hematocrit Auto (Bld) [Volum e fraction]Ordered By: Ariane Perez on 04-03-2025 Hematocrit (Bld) [Volume fraction] 53.0 % 40-54 [facility] Hemoglobin measurementOrdere d By: Ariane Perez on 04-03-2025 Hemoglobin (Bld) [Mass/Vol] 17.0 g/dL High 13.0-16.5 [facility] Immature granulocytes/100 WB C Auto (Bld)Ordered By: Ariane Perez on 04-03-2025 Immature granulocytes/100 WBC (Bld) 0.400 % 0.0-0.9 [facility] Comment on above: IG% - Immature Granu locytes (promyelocytes, myelocytes and metamyelocytes) > 1% indicates that a LEFT SHIFT is Present. L503.7505on 04-03-2025 Natriuretic peptide B (Bld) [Mass/Vol] 9050 pg/mL High <=900 [facility] Comment on above: Result Comment: Hear t Failure Unlikely: < 300 pg/mL Heart Failure Likely < 50 Years: > 450 pg/mL 50-75 Years: > 900 pg/mL >75 Years: > 1800 pg/mL Performed By: #### L 503.7505, L100.0100, L500.2500 ####[facility] [address] [place], [address] MCV (mean corpuscular volume ) determinationOrdered By: Ariane Perez on 04-03-2025 MCV (RBC) [Entitic vol] 98.3 fL High 80-94 [facility] Mean corpuscular hemoglobin (MCH) determinationOrdered By: Ariane Perez on 04-03-2025 MCH (RBC) [Entitic mass] 31.5 pg 27.0-32.0 [facility] Mean corpuscular hemoglobin concentration (MCHC) determinationOrdered By: Ariane Perez on 04-03-2025 MCHC (RBC) [Mass/Vol] 32.1 g/dL 32-36 [facility] Mean platelet volume determi nationOrdered By: Ariane Perez on 04-03-2025 Platelet mean volume (Bld) [Entitic vol] 11.1 fL 6.2-12.0 [facility] Monocyte percentageOrdered B y: Ariane Perez on 04-03-2025 Monocytes/100 WBC (Bld) 9.2 % 0-10 [facility] Natriuretic peptide.B prohor geraldine N-Terminal [Mass/volume] in Serum or PlasmaOrdered By: Ariane Perez on 04-03-2025 Natriuretic peptide.B prohormone N-Terminal [Mass/Vol] 9050 pg/mL High <900 [facility] Comment on above: Heart Failure Unlike ly: < 300 pg/mLHeart Failure Likely< 50 Years: > 450 pg/mL50-75 Years: > 900 pg/mL>75 Years: > 1800 pg/mL Neutrophil percentageOrdered By: Ariane Perez on 04-03-2025 Neutrophils/100 WBC (Bld) 64.7 % 47-70 [facility] Nucleated red blood cell per centageOrdered By: Ariane Perez on 04-03-2025 Nucleated RBC/100 WBC (Bld) [Ratio] 0 % 0-5 [facility] Platelet countOrdered By: Shiv Perez on 04-03-2025 Platelets (Bld) [#/Vol] 95 10*3/uL Low 150-450 [facility] Platelet estimateOrdered By: Ariane Perez on 04-03-2025 Platelets LM Ql (Bld) MOD DEC ADEQ [facility] Potassium measurement (mass/ volume)Ordered By: Ariane Perez on 04-03-2025 Potassium (Unsp spec) [Mass/Vol] 5.1 mmol/L 3.3-5.1 [facility] RBC Auto (Bld) [#/Vol]Ordere d By: Ariane Perez on 04-03-2025 RBC (Bld) [#/Vol] 5.39 10*6/uL 4.6-6.2 [facility] Serum creatinine measurement (mass/volume)Ordered By: Ariane Perez on 04-03-2025 Creatinine [Mass/Vol] 1.18 mg/dL 0.70-1.20 [facility] Serum glucose measurement (m ass/volume)Ordered By: Ariane Perez on 04-03-2025 Glucose [Mass/Vol] 82 mg/dL 70-99 [facility] Serum or plasma calcium jennifer urement (mass/volume)Ordered By: Ariane Perez on 04-03-2025 Calcium [Mass/Vol] 8.0 mg/dL 7.6-11.0 [facility] Serum or plasma urea nitroge n measurement (mass/volume)Ordered By: Ariane Perez on 04-03-2025 Urea nitrogen [Mass/Vol] 29 mg/dL High 03-08 [facility] Sodium levelOrdered By: Lizzy Perez on 04-03-2025 Sodium [Moles/Vol] 138 mmol/L 133-145 [facility] White blood cell (WBC) count Ordered By: Ariane Perez on 04-03-2025 WBC (Bld) [#/Vol] 7.2 10*3/uL 4.4-11.0 [facility] Anion gap in Serum or Plasma Ordered By: Derrick Chacon on 03-27-2025 Anion gap [Moles/Vol] 8 mmol/L 04-03 [facility] BUN/creatinine ratioOrdered By: Derrick Chacon on 03-27-2025 Urea nitrogen/Creatinine [Mass ratio] 22.0 mg/mg High 09-08 [facility] Basic Metabolic Profile (BMP )on 03-27-2025 BUN/CRE 22.0 RATIO High 09-08 [facility] Comment on above: Performed By: #### L 300.4310, L300.3900 #### [facility] [address] [place], [address] Calcium [Mass/Vol] 8.2 mg/dL Normal 7.6-11.0 [facility] Comment on above: Performed By: #### L 300.4310, L300.3900 #### [facility] [address] [place], [address] Chloride [Moles/Vol] 98 mmol/L Normal 98-108 [facility] Comment on above: Performed By: #### L 300.4310, L300.3900 #### [facility] [address] [place], [address] CO2 [Moles/Vol] 35.1 mmol/L High 21.0-32.0 [facility] Comment on above: Performed By: #### L 300.4310, L300.3900 #### [facility] [address] [place], [address] Creatinine [Mass/Vol] 1.49 mg/dL High 0.70-1.20 [facility] Comment on above: Performed By: #### L 300.4310, L300.3900 #### [facility] [address] [place], [address] ECRCL 54.90 ml/min Normal 50-250 [facility] Comment on above: Performed By: #### L 300.4310, L300.3900 #### [facility] [address] [place], [address] GAP 8 Normal 5-15 [facility] Comment on above: Performed By: #### L 300.4310, L300.3900 #### [facility] [address] [place], [address] GFR/1.73 sq M.predicted among non-blacks MDRD (S/P/Bld) [Vol rate/Area] 50 mL/min/{1.73_m2} Low >60 [facility] Comment on above: Result Comment: mL/m in/1.73m2 CKD-EPI Creatinine Equation (2020) Performed By: #### L 300.4310, L300.3900 #### [facility] [address] [place], [address] Glucose [Mass/Vol] 94 mg/dL Normal 70-99 [facility] Comment on above: Performed By: #### L 300.4310, L300.3900 #### [facility] [address] [place], [address] Potassium [Moles/Vol] 3.9 mmol/L Normal 3.3-5.1 [facility] Comment on above: Performed By: #### L 300.4310, L300.3900 #### [facility] [address] [place], [address] Sodium [Moles/Vol] 141 mmol/L Normal 133-145 [facility] Comment on above: Performed By: #### L 300.4310, L300.3900 #### [facility] [address] [place], [address] Urea nitrogen [Mass/Vol] 33 mg/dL High 4-19 [facility] Comment on above: Performed By: #### L 300.4310, L300.3900 #### [facility] [address] [place], [address] Carbon dioxide, total [Moles /volume] in Central venous bloodOrdered By: Derrick Chacon on 03-27-2025 CO2 [Moles/Vol] 35.1 mmol/L High 21.0-32.0 [facility] Chloride assayOrdered By: Denis Chacon on 03-27-2025 Chloride [Moles/Vol] 98 mmol/L 98-108 [facility] Discharge Instructionon 05-0 Discharge Instruction [facility] Medical Records Department [address] [facility] [place] [address] Instructions for Home/Discharge Instructions 03/27/25 1012 MR#: [id number] Acct: [id number] Name: KELVIN LEE Jr. Rep #: [id number] : 1955 69 From: Derrick Chacon MD [...] MD; Dr. Krissy Freitas MD Signed Normal [facility] Glomerular filtration rate ( GFR) estimation/1.73 sq m using serum, plasma, or whole bOrdered By: Derrick Chacon on 03-27-2025 GFR/1.73 sq M.predicted among non-blacks MDRD (S/P/Bld) [Vol rate/Area] 50 mL/min/{1.73_m2} Low >60 [facility] Comment on above: mL/min/1.73m2 CKD-EP I Creatinine Equation (2020) Potassium measurement (mass/ volume)Ordered By: Derrick Chacon on 03-27-2025 Potassium (Unsp spec) [Mass/Vol] 3.9 mmol/L 3.3-5.1 [facility] Serum creatinine measurement (mass/volume)Ordered By: Derrick Chacon on 03-27-2025 Creatinine [Mass/Vol] 1.49 mg/dL High 0.70-1.20 [facility] Serum glucose measurement (m ass/volume)Ordered By: Derrick Chacon on 03-27-2025 Glucose [Mass/Vol] 94 mg/dL 70-99 [facility] Serum or plasma calcium jennifer urement (mass/volume)Ordered By: Derrick Chacon on 03-27-2025 Calcium [Mass/Vol] 8.2 mg/dL 7.6-11.0 [facility] Serum or plasma urea nitroge n measurement (mass/volume)Ordered By: Derrick Chacon on 03-27-2025 Urea nitrogen [Mass/Vol] 33 mg/dL High 4-19 [facility] Sodium levelOrdered By: Shayna Chacon on 03-27-2025 Sodium [Moles/Vol] 141 mmol/L 133-145 [facility] Basic Metabolic Profile (BMP )on 03-26-2025 BUN/CRE 23.4 RATIO High 10-20 [facility] Comment on above: Performed By: #### L 300.4310, L300.3900 #### [facility] [address] [place], [place], [address] Calcium [Mass/Vol] 8.1 mg/dL Normal 7.6-11.0 [facility] Comment on above: Performed By: #### L 300.4310, L300.3900 #### [facility] [address] [place], [address] Chloride [Moles/Vol] 97 mmol/L Low 98-108 [facility] Comment on above: Performed By: #### L 300.4310, L300.3900 #### [facility] [address] [place], [address] CO2 [Moles/Vol] 31.4 mmol/L Normal 21.0-32.0 [facility] Comment on above: Performed By: #### L 300.4310, L300.3900 #### [facility] [address] [place], [address] Creatinine [Mass/Vol] 1.35 mg/dL High 0.70-1.20 [facility] Comment on above: Performed By: #### L 300.4310, L300.3900 #### [facility] [address] [place], [address] ECRCL 60.85 ml/min Normal 50-250 [facility] Comment on above: Performed By: #### L 300.4310, L300.3900 #### [facility] [address] [place], [address] GAP 10 Normal 5-15 [facility] Comment on above: Performed By: #### L 300.4310, L300.3900 #### [facility] [address] [place], [address] GFR/1.73 sq M.predicted among non-blacks MDRD (S/P/Bld) [Vol rate/Area] 56 mL/min/{1.73_m2} Low >60 [facility] Comment on above: Result Comment: mL/m in/1.73m2 CKD-EPI Creatinine Equation (2020) Performed By: #### L 300.4310, L300.3900 #### [facility] [address] [place], [address] Glucose [Mass/Vol] 104 mg/dL High 70-99 [facility] Comment on above: Performed By: #### L 300.4310, L300.3900 #### [facility] [address] [place], [address] Potassium [Moles/Vol] 3.7 mmol/L Normal 3.3-5.1 [facility] Comment on above: Performed By: #### L 300.4310, L300.3900 #### [facility] [address] [place], [address] Sodium [Moles/Vol] 139 mmol/L Normal 133-145 [facility] Comment on above: Performed By: #### L 300.4310, L300.3900 #### [facility] [address] [place], [address] Urea nitrogen [Mass/Vol] 32 mg/dL High 4-19 [facility] Comment on above: Performed By: #### L 300.4310, L300.3900 #### [facility] [address] [place], [address] L503.7505on 03-26-2025 Natriuretic peptide B (Bld) [Mass/Vol] 91100 pg/mL High <=900 [facility] Comment on above: Result Comment: Hear t Failure Unlikely: < 300 pg/mL Heart Failure Likely < 50 Years: > 450 pg/mL 50-75 Years: > 900 pg/mL >75 Years: > 1800 pg/mL Performed By: #### L 503.7505 #### [facility] [address] [place], [address] Magnesiumon 03-26-2025 Magnesium [Mass/Vol] 2.2 mg/dL Normal 1.5-2.2 [facility] Comment on above: Performed By: #### L 300.4310, L300.3900 #### [facility] [address] [place], [address] Magnesium measurement (mass/ volume)Ordered By: Stanley Maradiaga on 03-26-2025 Magnesium (Unsp spec) [Mass/Vol] 2.2 mg/dL 1.5-2.2 [facility] Natriuretic peptide.B prohor geraldine N-Terminal [Mass/volume] in Serum or PlasmaOrdered By: Madhu Bautista on 03-26-2025 Natriuretic peptide.B prohormone N-Terminal [Mass/Vol] 38423 pg/mL High <900 [facility] Comment on above: Heart Failure Unlike ly: < 300 pg/mLHeart Failure Likely< 50 Years: > 450 pg/mL50-75 Years: > 900 pg/mL>75 Years: > 1800 pg/mL Basic Metabolic Profile (BMP )on 03-25-2025 BUN/CRE 22.7 RATIO High 10-20 [facility] Comment on above: Performed By: #### L 300.4310, L300.3900 #### [facility] [address] [place], [address] Calcium [Mass/Vol] 8.3 mg/dL Normal 7.6-11.0 [facility] Comment on above: Performed By: #### L 300.4310, L300.3900 #### [facility] [address] [place], [address] Chloride [Moles/Vol] 97 mmol/L Low 98-108 [facility] Comment on above: Performed By: #### L 300.4310, L300.3900 #### [facility] [address] [place], [address] CO2 [Moles/Vol] 32.8 mmol/L High 21.0-32.0 [facility] Comment on above: Performed By: #### L 300.4310, L300.3900 #### [facility] [address] [place], [address] Creatinine [Mass/Vol] 1.39 mg/dL High 0.70-1.20 [facility] Comment on above: Performed By: #### L 300.4310, L300.3900 #### [facility] [address] [place], [address] ECRCL 60.26 ml/min Normal 50-250 [facility] Comment on above: Performed By: #### L 300.4310, L300.3900 #### [facility] [address] [place], [address] GAP 10 Normal 5-15 [facility] Comment on above: Performed By: #### L 300.4310, L300.3900 #### [facility] [address] [place], [address] GFR/1.73 sq M.predicted among non-blacks MDRD (S/P/Bld) [Vol rate/Area] 54 mL/min/{1.73_m2} Low >60 [facility] Comment on above: Result Comment: mL/m in/1.73m2 CKD-EPI Creatinine Equation (2020) Performed By: #### L 300.4310, L300.3900 #### [facility] [address] [place], [address] Glucose [Mass/Vol] 113 mg/dL High 70-99 [facility] Comment on above: Performed By: #### L 300.4310, L300.3900 #### [facility] [address] [place], [address] Potassium [Moles/Vol] 4.1 mmol/L Normal 3.3-5.1 [facility] Comment on above: Result Comment: Hemo lysis present, Results??could be affected. ?? Performed By: #### L 300.4310, L300.3900 #### [facility] [address] [place], [address] Sodium [Moles/Vol] 140 mmol/L Normal 133-145 [facility] Comment on above: Performed By: #### L 300.4310, L300.3900 #### [facility] [address] [place], [address] Urea nitrogen [Mass/Vol] 32 mg/dL High 4-19 [facility] Comment on above: Performed By: #### L 300.4310, L300.3900 #### [facility] [address] [place], [address] Absolute lymphocyte countOrd ered By: Stanley Craig on 03-24-2025 Lymphocytes Auto (Unsp spec) [#/Vol] 2.32 10*3/uL 0.83-4.51 [facility] Absolute neutrophil countOrd ered By: Stanley Craig on 03-24-2025 Neutrophils (Bld) [#/Vol] 4.2 10*3/uL 2.0-7.7 [facility] Activated partial thrombopla stin time (aPTT) in platelet poor plasma by coagulation aOrdered By: Krissy Freitas on 03-24-2025 aPTT Coag (PPP) [Time] 34.6 s 24.1-36.2 [facility] Automated lymphocyte count a s percentage of total leukocytesOrdered By: Stanley Craig on 03-24-2025 Lymphocytes/100 WBC Auto (Unsp spec) 31.6 % 19-41 [facility] Basic Metabolic Profile (BMP )on 03-24-2025 BUN/CRE 20.5 RATIO High 10-20 [facility] Comment on above: Performed By: #### L 500.3400, L500.2500, L100.0100, L501.5200 ####[facility] [address] [place], [address] Calcium [Mass/Vol] 8.2 mg/dL Normal 7.6-11.0 [facility] Comment on above: Performed By: #### L 500.3400, L500.2500, L100.0100, L501.5200 ####[facility] [address] [place], [address] Chloride [Moles/Vol] 97 mmol/L Low 98-108 [facility] Comment on above: Performed By: #### L 500.3400, L500.2500, L100.0100, L501.5200 ####[facility] [address] [place], [address] CO2 [Moles/Vol] 29.1 mmol/L Normal 21.0-32.0 [facility] Comment on above: Performed By: #### L 500.3400, L500.2500, L100.0100, L501.5200 ####[facility] [address] [place], [address] Creatinine [Mass/Vol] 1.26 mg/dL High 0.70-1.20 [facility] Comment on above: Performed By: #### L 500.3400, L500.2500, L100.0100, L501.5200 ####[facility] [address] [place], [address] ECRCL 66.51 ml/min Normal 50-250 [facility] Comment on above: Performed By: #### L 500.3400, L500.2500, L100.0100, L501.5200 ####[facility] [address] [place], [address] GAP 12 Normal 5-15 [facility] Comment on above: Performed By: #### L 500.3400, L500.2500, L100.0100, L501.5200 ####[facility] [address] [place], [address] GFR/1.73 sq M.predicted among non-blacks MDRD (S/P/Bld) [Vol rate/Area] 61 mL/min/{1.73_m2} Normal >60 [facility] Comment on above: Result Comment: mL/m in/1.73m2 CKD-EPI Creatinine Equation (2020) Performed By: #### L 500.3400, L500.2500, L100.0100, L501.5200 ####[facility] [address] [place], [address] Glucose [Mass/Vol] 106 mg/dL High 70-99 [facility] Comment on above: Performed By: #### L 500.3400, L500.2500, L100.0100, L501.5200 ####[facility] [address] [place], [address] Potassium [Moles/Vol] 3.7 mmol/L Normal 3.3-5.1 [facility] Comment on above: Performed By: #### L 500.3400, L500.2500, L100.0100, L501.5200 ####[facility] [address] [place], [address] Sodium [Moles/Vol] 138 mmol/L Normal 133-145 [facility] Comment on above: Performed By: #### L 500.3400, L500.2500, L100.0100, L501.5200 ####[facility] [address] [place], [address] Urea nitrogen [Mass/Vol] 26 mg/dL High 4-19 [facility] Comment on above: Performed By: #### L 500.3400, L500.2500, L100.0100, L501.5200 ####[facility] [address] [place], [address] Basophil percentageOrdered B y: Stanley Craig on 03-24-2025 Basophils/100 WBC (Bld) 0.4 % 0-1 [facility] Bilirubin directOrdered By: Stanley Craig on 03-24-2025 Bilirubin.direct [Mass/Vol] 0.70 mg/dL High 0.00-0.30 [facility] Bilirubin, totalOrdered By: Stanley Craig on 03-24-2025 Bilirubin [Mass/Vol] 1.30 mg/dL 0.00-1.30 [facility] CBC W/Diff, Automatedon 05-0 5-2025 Absolute Lymph 2.32 X10 3/uL Normal 0.83-4.51 [facility] Comment on above: Performed By: #### L 500.3400, L500.2500, L100.0100, L501.5200 ####[facility] [address] [place], [address] Absolute Neut 4.2 X10 3/uL Normal 2.0-7.7 [facility] Comment on above: Performed By: #### L 500.3400, L500.2500, L100.0100, L501.5200 ####[facility] [address] [place], [address] Basophils/100 WBC (Bld) 0.4 % Normal 0-1 [facility] Comment on above: Performed By: #### L 500.3400, L500.2500, L100.0100, L501.5200 ####[facility] [address] [place], [address] Eosinophils/100 WBC (Bld) 0.7 % Normal 0-5 [facility] Comment on above: Performed By: #### L 500.3400, L500.2500, L100.0100, L501.5200 ####[facility] [address] [place], [address] Erythrocyte distribution width (RBC) [Ratio] 15.5 % High 11.6-14.6 [facility] Comment on above: Performed By: #### L 500.3400, L500.2500, L100.0100, L501.5200 ####[facility] [address] [place], [address] Hematocrit (Bld) [Volume fraction] 45.4 % Normal 40-54 [facility] Comment on above: Performed By: #### L 500.3400, L500.2500, L100.0100, L501.5200 ####[facility] [address] [place], [address] Hemoglobin (Bld) [Mass/Vol] 15.3 g/dL Normal 13.0-16.5 [facility] Comment on above: Performed By: #### L 500.3400, L500.2500, L100.0100, L501.5200 ####[facility] [address] [place], [address] IG% 0.400 Normal 0.0-0.9 [facility] Comment on above: Result Comment: IG% - Immature Granulocytes (promyelocytes, myelocytes and metamyelocytes) > 1% indicates that a LEFT SHIFT is Present. Performed By: #### L 500.3400, L500.2500, L100.0100, L501.5200 ####[facility] [address] [place], [address] Lymphocytes/100 WBC (Bld) 31.6 % Normal 19-41 [facility] Comment on above: Performed By: #### L 500.3400, L500.2500, L100.0100, L501.5200 ####[facility] [address] [place], [address] MCH (RBC) [Entitic mass] 31.6 pg Normal 27.0-32.0 [facility] Comment on above: Performed By: #### L 500.3400, L500.2500, L100.0100, L501.5200 ####[facility] [address] [place], [address] MCHC (RBC) [Mass/Vol] 33.7 g/dL Normal 32-36 [facility] Comment on above: Performed By: #### L 500.3400, L500.2500, L100.0100, L501.5200 ####[facility] [address] [place], [address] MCV (RBC) [Entitic vol] 93.8 fL Normal 80-94 [facility] Comment on above: Performed By: #### L 500.3400, L500.2500, L100.0100, L501.5200 ####[facility] [address] [place], [address] Monocytes/100 WBC (Bld) 10.2 % High 0-10 [facility] Comment on above: Performed By: #### L 500.3400, L500.2500, L100.0100, L501.5200 ####[facility] [address] [place], [address] Neutrophils/100 WBC (Bld) 56.7 % Normal 47-70 [facility] Comment on above: Performed By: #### L 500.3400, L500.2500, L100.0100, L501.5200 ####[facility] [address] [place], [address] Nucleated RBC (Bld) [#/Vol] 0 10*3/uL Normal 0-5 [facility] Comment on above: Performed By: #### L 500.3400, L500.2500, L100.0100, L501.5200 ####[facility] [address] [place], [address] Platelet mean volume (Bld) [Entitic vol] 11.0 fL Normal 6.2-12.0 [facility] Comment on above: Performed By: #### L 500.3400, L500.2500, L100.0100, L501.5200 ####[facility] [address] [place], [address] Platelets (Bld) [#/Vol] 83 10*3/uL Low 150-450 [facility] Comment on above: Performed By: #### L 500.3400, L500.2500, L100.0100, L501.5200 ####[facility] [address] [place], [address] RBC (Bld) [#/Vol] 4.84 10*6/uL Normal 4.6-6.2 [facility] Comment on above: Performed By: #### L 500.3400, L500.2500, L100.0100, L501.5200 ####[facility] [address] [place], [address] RDW SD 52.7 fl High 35.1-43.9 [facility] Comment on above: Performed By: #### L 500.3400, L500.2500, L100.0100, L501.5200 ####[facility] [address] [place], [address] WBC (Bld) [#/Vol] 7.4 10*3/uL Normal 4.4-11.0 [facility] Comment on above: Performed By: #### L 500.3400, L500.2500, L100.0100, L501.5200 ####[facility] [address] [place], [address] Cardiac Cath Diagnosticon Cardiac Cath Diagnostic [facility] Imaging Services [address] [place] [address] Cardiac Cath Diagnostic MR#: [id number] Acct: [id number] Name: KELVIN LEE Rep #: [id number] : 1955 69 From: Carlton Keyes MD PCP: Dr. Lee Mathews MD Status:ADM IN Patient Name: KELVIN LEE Study Date: 03/24/2025 Performing: Carlton Keyes MD Ht: 68 inches 172.72 cm : 1955 Wt: 256.1 lbs 116 kg Age: 69 Gender: male BSA: 2.27 PROCEDURE(S) PERFORMED [id number])[facility]/COR CLINICAL PROFILE AND INDICATIONS Indications: Cardiomyopathy Heart [...] multiple views using a 5 Fr. 4.0 [place] catheter. Right Coronary Artery selective angiography was then performed in multiple views using a 5 Fr. 4.0 [place] catheter. LV to AO pullback pressures were [...] Date Dictated: 03/24/25 1018 Date Transcribed: 03/24/251450 Welfare Specialist: [place] Signed Normal [facility] Cardiac catheterization repo rtOrdered By: Carlton Keyes on 03-24-2025 Cardiac catheterization study [facility] Imaging Services [address] [place] [id number] Cardiac Cath Diagnostic MR#: [id number] Acct: [id number] Name: KELVIN LEE JrSavita Rep #:[id number] : 1955 69 From: Carlton Keyes MD PCP: Dr. Lee Mathews MD Status :ADM IN Patient Name: KELVIN LEE Study Date: 03/24/2025 Performing: Carlton Keyes MD Ht: 68 inches 172.72 cm : 1955 Wt: 256.1 lbs 116 kg Age: 69 Gender: male BSA: 2.27 PROCEDURE(S) PERFORMED [id number])[facility]/COR CLINICAL PROFILE AND INDICATIONS Indications: Cardiomyopathy Heart [...] multiple views using a 5 Fr. 4.0 [place] catheter. Right Coronary Artery selective angiography was then performed in multiple views using a 5 Fr. 4.0 [place] catheter. LV to AO pullback pressures were [...] 03/24/25 1451 Date _ Carlton Keyes MD [facility] Signature: Date _ (if indicated) CC: Dr. Lee Mathews MD; Dr. Carlton Keyes MD; Dr. Derrick Chacon MD ~ Date Dictated: 03/24/25 1018 Date Transcribed: 03/24/25 1451 Welfare Specialist: [place] Signed [facility] Work Phone: Eosinophil percentageOrdered By: Stanley Craig on 03-24-2025 Eosinophils/100 WBC (Bld) 0.7 % 0-5 [facility] Erythrocyte distribution wid th ratioOrdered By: Stanley Craig on 03-24-2025 Erythrocyte distribution width (RBC) [Ratio] 15.5 % High 11.6-14.6 [facility] Erythrocyte distribution wid th standard deviationOrdered By: Stanley Craig on 03-24-2025 Erythrocyte distribution width (RBC) [Ratio] 52.7 fl High 35.1-43.9 [facility] Hematocrit Auto (Bld) [Volum e fraction]Ordered By: Stanley Craig on 03-24-2025 Hematocrit (Bld) [Volume fraction] 45.4 % 40-54 [facility] Hemoglobin measurementOrdere d By: Stanley Craig on 03-24-2025 Hemoglobin (Bld) [Mass/Vol] 15.3 g/dL 13.0-16.5 [facility] Immature granulocytes/100 WB C Auto (Bld)Ordered By: Stanley Craig on 03-24-2025 Immature granulocytes/100 WBC (Bld) 0.400 % 0.0-0.9 [facility] Comment on above: IG% - Immature Granu locytes (promyelocytes, myelocytes and metamyelocytes) > 1% indicates that a LEFT SHIFT is Present. Laboratory - Chemistry and C hemistry - challengeOrdered By: Stanley Craig on 03-24-2025 AST [Catalytic activity/Vol] 60 U/L High <38 [facility] Liver Profileon 03-24-2025 Albumin [Mass/Vol] 3.4 g/dL Normal 3.4-4.8 [facility] Comment on above: Performed By: #### L 500.3400, L500.2500, L100.0100, L501.5200 ####[facility] [address] [place], [address] ALK PHOS 152 U/L High 40-129 [facility] Comment on above: Performed By: #### L 500.3400, L500.2500, L100.0100, L501.5200 ####[facility] [address] [place], [address] ALT [Catalytic activity/Vol] 80 U/L High <=46 [facility] Comment on above: Performed By: #### L 500.3400, L500.2500, L100.0100, L501.5200 ####[facility] [address] [place], [address] AST [Catalytic activity/Vol] 60 U/L High <=37 [facility] Comment on above: Performed By: #### L 500.3400, L500.2500, L100.0100, L501.5200 ####[facility] [address] [place], [address] Bilirubin [Mass/Vol] 1.30 mg/dL Normal 0.00-1.30 [facility] Comment on above: Performed By: #### L 500.3400, L500.2500, L100.0100, L501.5200 ####[facility] [address] [place], [address] Bilirubin.direct [Mass/Vol] 0.70 mg/dL High 0.00-0.30 [facility] Comment on above: Performed By: #### L 500.3400, L500.2500, L100.0100, L501.5200 ####[facility] [address] [place], [address] Globulin (S) [Mass/Vol] 2.3 g/dL Normal 2.2-4.2 [facility] Comment on above: Performed By: #### L 500.3400, L500.2500, L100.0100, L501.5200 ####[facility] [address] [place], [place], [id number] T PROT 5.7 g/dL Low 5.9-8.4 [facility] Comment on above: Performed By: #### L 500.3400, L500.2500, L100.0100, L501.5200 ####[facility] [address] [place], [address] MCV (mean corpuscular volume ) determinationOrdered By: Stanley Craig on 03-24-2025 MCV (RBC) [Entitic vol] 93.8 fL 80-94 [facility] Magnesiumon 03-24-2025 Magnesium [Mass/Vol] 2.1 mg/dL Normal 1.5-2.2 [facility] Comment on above: Performed By: #### L 500.3400, L500.2500, L100.0100, L501.5200 ####[facility] [address] [place], [place], [id number] Mean corpuscular hemoglobin (MCH) determinationOrdered By: Stanley Craig on 03-24-2025 MCH (RBC) [Entitic mass] 31.6 pg 27.0-32.0 [facility] Mean corpuscular hemoglobin concentration (MCHC) determinationOrdered By: Stanley Craig on 03-24-2025 MCHC (RBC) [Mass/Vol] 33.7 g/dL 32-36 [facility] Mean platelet volume determi nationOrdered By: Stanley Craig on 03-24-2025 Platelet mean volume (Bld) [Entitic vol] 11.0 fL 6.2-12.0 [facility] Monocyte percentageOrdered B y: Stanley Craig on 03-24-2025 Monocytes/100 WBC (Bld) 10.2 % High 0-10 [facility] Neutrophil percentageOrdered By: Stanley Craig on 03-24-2025 Neutrophils/100 WBC (Bld) 56.7 % 47-70 [facility] Nucleated red blood cell per centageOrdered By: Stanley Craig on 03-24-2025 Nucleated RBC/100 WBC (Bld) [Ratio] 0 % 0-5 [facility] Partial Thromboplast Timeon 03-24-2025 aPTT Coag (Bld) [Time] 34.6 s Normal 24.1-36.2 [facility] Comment on above: Order Comment: OKAY TO ADD PER DR. CRAIG Performed By: #### L 501.5200, L501.2300 #### [facility] [address] [place], [address] aPTT Coag (Bld) [Time] 87.8 s High 24.1-36.2 [facility] Comment on above: Order Comment: OKAY TO ADD PER DR. CRAIG Performed By: #### L 501.5200, L501.2300 #### [facility] [address] [place], [address] Phosphoruson 03-24-2025 Phosphate [Mass/Vol] 4.4 mg/dL Normal 2.7-4.5 [facility] Comment on above: Performed By: #### L 503.7505 #### [facility] [address] [place], [address] Platelet countOrdered By: Yonis Craig on 03-24-2025 Platelets (Bld) [#/Vol] 83 10*3/uL Low 150-450 [facility] RBC Auto (Bld) [#/Vol]Ordere d By: Stanley Craig on 03-24-2025 RBC (Bld) [#/Vol] 4.84 10*6/uL 4.6-6.2 [facility] Serum globulin measurementOr dered By: Stanley Craig on 03-24-2025 Globulin (S) [Mass/Vol] 2.3 g/dL 2.2-4.2 [facility] Serum or plasma alanine andre otransferase (ALT) measurementOrdered By: Stanley Craig on 03-24-2025 ALT [Catalytic activity/Vol] 80 U/L High <47 [facility] Serum or plasma albumin jennifer urement (mass/volume)Ordered By: Stanley Craig on 03-24-2025 Albumin [Mass/Vol] 3.4 g/dL 3.4-4.8 [facility] Serum or plasma alkaline elisabeth sphatase measurementOrdered By: Stanley Craig on 03-24-2025 ALP [Catalytic activity/Vol] 152 U/L High 40-129 [facility] Total proteinOrdered By: Ricky Craig on 03-24-2025 Protein [Mass/Vol] 5.7 g/dL Low 5.9-8.4 [facility] White blood cell (WBC) count Ordered By: Stanley Craig on 03-24-2025 WBC (Bld) [#/Vol] 7.4 10*3/uL 4.4-11.0 [facility] Basic Metabolic Profile (BMP )on 03-23-2025 BUN/CRE 21.2 RATIO High 10-20 [facility] Comment on above: Performed By: #### L 501.5200, L501.2300 #### [facility] [address] [place], [address] Calcium [Mass/Vol] 8.0 mg/dL Normal 7.6-11.0 [facility] Comment on above: Performed By: #### L 501.5200, L501.2300 #### [facility] [address] [place], [address] Chloride [Moles/Vol] 95 mmol/L Low 98-108 [facility] Comment on above: Performed By: #### L 501.5200, L501.2300 #### [facility] [address] [place], [address] CO2 [Moles/Vol] 35.2 mmol/L High 21.0-32.0 [facility] Comment on above: Performed By: #### L 501.5200, L501.2300 #### [facility] [address] [place], [address] Creatinine [Mass/Vol] 1.17 mg/dL Normal 0.70-1.20 [facility] Comment on above: Performed By: #### L 501.5200, L501.2300 #### [facility] [address] [place], [address] ECRCL 72.01 ml/min Normal 50-250 [facility] Comment on above: Performed By: #### L 501.5200, L501.2300 #### [facility] [address] [place], [address] GAP 9 Normal 5-15 [facility] Comment on above: Performed By: #### L 501.5200, L501.2300 #### [facility] [address] [place], [address] GFR/1.73 sq M.predicted among non-blacks MDRD (S/P/Bld) [Vol rate/Area] 67 mL/min/{1.73_m2} Normal >60 [facility] Comment on above: Result Comment: mL/m in/1.73m2 CKD-EPI Creatinine Equation (2020) Performed By: #### L 501.5200, L501.2300 #### [facility] [address] [place], [address] Glucose [Mass/Vol] 116 mg/dL High 70-99 [facility] Comment on above: Performed By: #### L 501.5200, L501.2300 #### [facility] [address] [place], [address] Potassium [Moles/Vol] 3.0 mmol/L Low 3.3-5.1 [facility] Comment on above: Performed By: #### L 501.5200, L501.2300 #### [facility] [address] [place], [address] Sodium [Moles/Vol] 140 mmol/L Normal 133-145 [facility] Comment on above: Performed By: #### L 501.5200, L501.2300 #### [facility] [address] [place], [address] Urea nitrogen [Mass/Vol] 25 mg/dL High 4-19 [facility] Comment on above: Performed By: #### L 501.5200, L501.2300 #### [facility] [address] [place], [address] CBC W/Diff, Automatedon 05-0 4-2024 Absolute Lymph 1.81 X10 3/uL Normal 0.83-4.51 [facility] Comment on above: Performed By: #### L 501.5200, L501.2300 #### [facility] [address] [place], [address] Absolute Neut 3.7 X10 3/uL Normal 2.0-7.7 [facility] Comment on above: Performed By: #### L 501.5200, L501.2300 #### [facility] [address] [place], [address] Basophils/100 WBC (Bld) 0.3 % Normal 0-1 [facility] Comment on above: Performed By: #### L 501.5200, L501.2300 #### [facility] [address] [place], [address] Eosinophils/100 WBC (Bld) 1.3 % Normal 0-5 [facility] Comment on above: Performed By: #### L 501.5200, L501.2300 #### [facility] [address] [place], [address] Erythrocyte distribution width (RBC) [Ratio] 15.3 % High 11.6-14.6 [facility] Comment on above: Performed By: #### L 501.5200, L501.2300 #### [facility] [address] [place], [address] Hematocrit (Bld) [Volume fraction] 44.9 % Normal 40-54 [facility] Comment on above: Performed By: #### L 501.5200, L501.2300 #### [facility] [address] [place], [address] Hemoglobin (Bld) [Mass/Vol] 15.0 g/dL Normal 13.0-16.5 [facility] Comment on above: Performed By: #### L 501.5200, L501.2300 #### [facility] [address] [place], [address] IG% 0.500 Normal 0.0-0.9 [facility] Comment on above: Result Comment: IG% - Immature Granulocytes (promyelocytes, myelocytes and metamyelocytes) > 1% indicates that a LEFT SHIFT is Present. Performed By: #### L 501.5200, L501.2300 #### [facility] [address] [place], [address] Lymphocytes/100 WBC (Bld) 28.8 % Normal 19-41 [facility] Comment on above: Performed By: #### L 501.5200, L501.2300 #### [facility] [address] [place], [address] MCH (RBC) [Entitic mass] 31.6 pg Normal 27.0-32.0 [facility] Comment on above: Performed By: #### L 501.5200, L501.2300 #### [facility] [address] [place], [address] MCHC (RBC) [Mass/Vol] 33.4 g/dL Normal 32-36 [facility] Comment on above: Performed By: #### L 501.5200, L501.2300 #### [facility] [address] [place], [address] MCV (RBC) [Entitic vol] 94.7 fL High 80-94 [facility] Comment on above: Performed By: #### L 501.5200, L501.2300 #### [facility] [address] [place], [address] Monocytes/100 WBC (Bld) 10.5 % High 0-10 [facility] Comment on above: Performed By: #### L 501.5200, L501.2300 #### [facility] [address] [place], [address] Neutrophils/100 WBC (Bld) 58.6 % Normal 47-70 [facility] Comment on above: Performed By: #### L 501.5200, L501.2300 #### [facility] [address] [place], [address] Nucleated RBC (Bld) [#/Vol] 0 10*3/uL Normal 0-5 [facility] Comment on above: Performed By: #### L 501.5200, L501.2300 #### [facility] [address] [place], [address] Platelet mean volume (Bld) [Entitic vol] 10.6 fL Normal 6.2-12.0 [facility] Comment on above: Performed By: #### L 501.5200, L501.2300 #### [facility] [address] [place], [address] Platelets (Bld) [#/Vol] 82 10*3/uL Low 150-450 [facility] Comment on above: Performed By: #### L 501.5200, L501.2300 #### [facility] [address] [place], [address] RBC (Bld) [#/Vol] 4.74 10*6/uL Normal 4.6-6.2 [facility] Comment on above: Performed By: #### L 501.5200, L501.2300 #### [facility] [address] [place], [address] RDW SD 52.9 fl High 35.1-43.9 [facility] Comment on above: Performed By: #### L 501.5200, L501.2300 #### [facility] [address] [place], [address] WBC (Bld) [#/Vol] 6.3 10*3/uL Normal 4.4-11.0 [facility] Comment on above: Performed By: #### L 501.5200, L501.2300 #### [facility] [address] [place], [address] Liver Profileon 03-23-2025 Albumin [Mass/Vol] 3.4 g/dL Normal 3.4-4.8 [facility] Comment on above: Performed By: #### L 501.5200, L501.2300 #### [facility] [address] [place], [address] ALK PHOS 147 U/L High 40-129 [facility] Comment on above: Performed By: #### L 501.5200, L501.2300 #### [facility] [address] [place], [address] ALT [Catalytic activity/Vol] 86 U/L High <=46 [facility] Comment on above: Performed By: #### L 501.5200, L501.2300 #### [facility] [address] [place], [address] AST [Catalytic activity/Vol] 69 U/L High <=37 [facility] Comment on above: Performed By: #### L 501.5200, L501.2300 #### [facility] [address] [place], [address] Bilirubin [Mass/Vol] 1.02 mg/dL Normal 0.00-1.30 [facility] Comment on above: Performed By: #### L 501.5200, L501.2300 #### [facility] [address] [place], [address] Bilirubin.direct [Mass/Vol] 0.57 mg/dL High 0.00-0.30 [facility] Comment on above: Performed By: #### L 501.5200, L501.2300 #### [facility] [address] [place], [address] Globulin (S) [Mass/Vol] 2.1 g/dL Low 2.2-4.2 [facility] Comment on above: Performed By: #### L 501.5200, L501.2300 #### [facility] [address] [place], [address] T PROT 5.5 g/dL Low 5.9-8.4 [facility] Comment on above: Performed By: #### L 501.5200, L501.2300 #### [facility] [address] [place], [address] Magnesiumon 03-23-2025 Magnesium [Mass/Vol] 2.0 mg/dL Normal 1.5-2.2 [facility] Comment on above: Order Comment: OKAY TO ADD PER DR. CRAIG Performed By: #### L 501.5200, L501.2300 #### [facility] [address] [place], [address] Magnesium [Mass/Vol] 2.0 mg/dL Normal 1.5-2.2 [facility] Comment on above: Performed By: #### L 501.5200, L501.2300 #### [facility] [address] [place], [address] Partial Thromboplast Timeon 03-23-2025 aPTT Coag (Bld) [Time] 83.8 s High 24.1-36.2 [facility] Comment on above: Order Comment: Comme nts: Heparin gtt Performed By: #### L 503.7505 #### [facility] [address] [place], [address] aPTT Coag (Bld) [Time] 150.3 s Invalid Interpretation Code 24.1-36.2 [facility] Comment on above: Result Comment: CRIT ICAL VALUE CALLED TO CODI LAMAS 03/23/25 1223 Rik Lowe. RESULTS READ BACK BY SAME. Performed By: #### L [id number] #### [facility] [address] [place], [address] aPTT Coag (Bld) [Time] 212.3 s Invalid Interpretation Code 24.1-36.2 [facility] Comment on above: Result Comment: CRIT ICAL VALUE CALLED TO DILIP CASAS 03/23/25 0357 Rik Lowe. RESULTS READ BACK BY SAME. Performed By: #### L 300.4310, L300.3900 #### [facility] [address] [place], [address] Phosphoruson 03-23-2025 Phosphate [Mass/Vol] 3.7 mg/dL Normal 2.7-4.5 [facility] Comment on above: Order Comment: OKAY TO ADD PER DR. CRAIG Performed By: #### L 501.5200, L501.2300 #### [facility] [address] [place], [address] Basic Metabolic Profile (BMP )on 03-22-2025 BUN/CRE 20.9 RATIO High 10-20 [facility] Comment on above: Performed By: #### L [id number] #### [facility] [address] [place], [address] Calcium [Mass/Vol] 8.0 mg/dL Normal 7.6-11.0 [facility] Comment on above: Performed By: #### L 503.7505 #### [facility] [address] [place], [address] Chloride [Moles/Vol] 94 mmol/L Low 98-108 [facility] Comment on above: Performed By: #### L 503.7505 #### [facility] [address] [place], [address] CO2 [Moles/Vol] 30.7 mmol/L Normal 21.0-32.0 [facility] Comment on above: Performed By: #### L 503.7505 #### [facility] [address] [place], [address] Creatinine [Mass/Vol] 1.18 mg/dL Normal 0.70-1.20 [facility] Comment on above: Performed By: #### L 503.7505 #### [facility] [address] [place], [address] ECRCL 71.40 ml/min Normal 50-250 [facility] Comment on above: Performed By: #### L 503.7505 #### [facility] [address] [place], [address] GAP 12 Normal 5-15 [facility] Comment on above: Performed By: #### L 503.7505 #### [facility] [address] [place], [address] GFR/1.73 sq M.predicted among non-blacks MDRD (S/P/Bld) [Vol rate/Area] 66 mL/min/{1.73_m2} Normal >60 [facility] Comment on above: Result Comment: mL/m in/1.73m2 CKD-EPI Creatinine Equation (2020) Performed By: #### L 503.7505 #### [facility] [address] [place], [address] Glucose [Mass/Vol] 95 mg/dL Normal 70-99 [facility] Comment on above: Performed By: #### L 503.1905 #### [facility] [address] [place], [address] Potassium [Moles/Vol] 3.5 mmol/L Normal 3.3-5.1 [facility] Comment on above: Performed By: #### L [id number] #### [facility] [address] [place], [address] Sodium [Moles/Vol] 137 mmol/L Normal 133-145 [facility] Comment on above: Performed By: #### L [id number] #### [facility] [address] [place], [address] Urea nitrogen [Mass/Vol] 25 mg/dL High 4-19 [facility] Comment on above: Performed By: #### L 503.6815 #### [facility] [address] [place], [address] CBC W/Diff, Automatedon 05-0 3-5 Absolute Lymph 2.80 X10 3/uL Normal 0.83-4.51 [facility] Comment on above: Performed By: #### L 503.1605 #### [facility] [address] [place], [address] Absolute Neut 4.2 X10 3/uL Normal 2.0-7.7 [facility] Comment on above: Performed By: #### L 503.2565 #### [facility] [address] [place], [address] Basophils/100 WBC (Bld) 0.3 % Normal 0-1 [facility] Comment on above: Performed By: #### L 632.4455 #### [facility] [address] [place], [address] Eosinophils/100 WBC (Bld) 0.9 % Normal 0-5 [facility] Comment on above: Performed By: #### L [id number] #### [facility] [address] [place], [address] Erythrocyte distribution width (RBC) [Ratio] 15.4 % High 11.6-14.6 [facility] Comment on above: Performed By: #### L 503.7505 #### [facility] [address], [address] Hematocrit (Bld) [Volume fraction] 46.4 % Normal 40-54 [facility] Comment on above: Performed By: #### L [id number] #### [facility] [address], [address] Hemoglobin (Bld) [Mass/Vol] 16.0 g/dL Normal 13.0-16.5 [facility] Comment on above: Performed By: #### L [id number] #### [facility] [address], [address] IG% 0.400 Normal 0.0-0.9 [facility] Comment on above: Result Comment: IG% - Immature Granulocytes (promyelocytes, myelocytes and metamyelocytes) > 1% indicates that a LEFT SHIFT is Present. Performed By: #### L [id number] #### [facility] [address], [address] Lymphocytes/100 WBC (Bld) 35.9 % Normal 19-41 [facility] Comment on above: Performed By: #### L [id number] #### [facility] [address], [address] MCH (RBC) [Entitic mass] 32.3 pg High 27.0-32.0 [facility] Comment on above: Performed By: #### L 503.1465 #### [facility] [address] [place], [address] MCHC (RBC) [Mass/Vol] 34.5 g/dL Normal 32-36 [facility] Comment on above: Performed By: #### L 503.7505 #### [facility] [address] [place], [address] MCV (RBC) [Entitic vol] 93.7 fL Normal 80-94 [facility] Comment on above: Performed By: #### L [id number] #### [facility] [address] [place], [address] Monocytes/100 WBC (Bld) 9.2 % Normal 0-10 [facility] Comment on above: Performed By: #### L 503.7505 #### [facility] [address] [place], [address] Neutrophils/100 WBC (Bld) 53.3 % Normal 47-70 [facility] Comment on above: Performed By: #### L 503.7505 #### [facility] [address] [place], [address] Nucleated RBC (Bld) [#/Vol] 0 10*3/uL Normal 0-5 [facility] Comment on above: Performed By: #### L 503.7505 #### [facility] [address] [place], [address] Platelet mean volume (Bld) [Entitic vol] 11.3 fL Normal 6.2-12.0 [facility] Comment on above: Performed By: #### L 503.7505 #### [facility] [address] [place], [address] Platelets (Bld) [#/Vol] 86 10*3/uL Low 150-450 [facility] Comment on above: Performed By: #### L 503.7505 #### [facility] [address] [place], [place], [address] RBC (Bld) [#/Vol] 4.95 10*6/uL Normal 4.6-6.2 [facility] Comment on above: Performed By: #### L [id number] #### [facility] [address] [place], [place], [id number] RDW SD 52.3 fl High 35.1-43.9 [facility] Comment on above: Performed By: #### L 516.7505 #### [facility] [address] [place], [address] WBC (Bld) [#/Vol] 7.8 10*3/uL Normal 4.4-11.0 [facility] Comment on above: Performed By: #### L 602.7505 #### [facility] [address] [place], [place], [id number] International normalized rat io (INR) calculationOrdered By: Stanley Craig on 03-22-2025 INR Coag (Bld) [Relative time] 1.6 {INR} [facility] L499.0042on 03-22-2025 Trop T High Sen 42 ng/L High <=22 [facility] Comment on above: Performed By: #### L 300.4310, L300.3900 #### [facility] [place], [address] L499.0043on 03-22-2025 Trop T High Sen 40 ng/L High <=22 [facility] Comment on above: Performed By: #### L 499.0043 #### [facility] [address] [place], [address] L501.4021on 03-22-2025 Trop T High Sen 43 ng/L High <=22 [facility] Comment on above: Performed By: #### L [id number] #### [facility] [address] [place], [address] L503.7505on 03-22-2025 Natriuretic peptide B (Bld) [Mass/Vol] 6426 pg/mL High <=900 [facility] Comment on above: Result Comment: Hear t Failure Unlikely: < 300 pg/mL Heart Failure Likely < 50 Years: > 450 pg/mL 50-75 Years: > 900 pg/mL >75 Years: > 1800 pg/mL Performed By: #### L 503.7505 #### [facility] [address] [place], [address] Liver Profileon 03-22-2025 Albumin [Mass/Vol] 3.4 g/dL Normal 3.4-4.8 [facility] Comment on above: Performed By: #### L 503.7505 #### [facility] [address] [place], [address] ALK PHOS 166 U/L High 40-129 [facility] Comment on above: Performed By: #### L 503.7505 #### [facility] [address] [place], [address] ALT [Catalytic activity/Vol] 108 U/L High <=46 [facility] Comment on above: Performed By: #### L 503.7505 #### [facility] [address] [place], [address] AST [Catalytic activity/Vol] 92 U/L High <=37 [facility] Comment on above: Performed By: #### L 503.7505 #### [facility] [address] [place], [address] Bilirubin [Mass/Vol] 1.36 mg/dL High 0.00-1.30 [facility] Comment on above: Performed By: #### L 503.7505 #### [facility] [address] [place], [address] Bilirubin.direct [Mass/Vol] 0.68 mg/dL High 0.00-0.30 [facility] Comment on above: Performed By: #### L 329.1385 #### [facility] [address] [place], [address] Globulin (S) [Mass/Vol] 2.4 g/dL Normal 2.2-4.2 [facility] Comment on above: Performed By: #### L 353.4415 #### [facility] [address] [place], [address] T PROT 5.9 g/dL Normal 5.9-8.4 [facility] Comment on above: Performed By: #### L 913.3255 #### [facility] [address] [place], [address] Magnesiumon 03-22-2025 Magnesium [Mass/Vol] 2.0 mg/dL Normal 1.5-2.2 [facility] Comment on above: Performed By: #### L 389.9395 #### [facility] [address] [place], [address] Partial Thromboplast Timeon 03-22-2025 aPTT Coag (Bld) [Time] 29.9 s Normal 24.1-36.2 [facility] Comment on above: Performed By: #### L 300.4310, L300.3900 #### [facility] [address] [place], [address] Phosphoruson 03-22-2025 Phosphate [Mass/Vol] 3.6 mg/dL Normal 2.7-4.5 [facility] Comment on above: Performed By: #### L 018.9865 #### [facility] [address] [place], [address] Prothrombin Time w/INRon INR Coag (PPP) [Relative time] 1.6 {INR} Normal [facility] Comment on above: Performed By: #### L 300.4310, L300.3900 #### [facility] [address] [place], [address] PT Coag (PPP) [Time] 19.1 s High 11.7-14.9 [facility] Comment on above: Performed By: #### L 300.4310, L300.3900 #### [facility] [address] [place], [address] Prothrombin timeOrdered By: Stanley Craig on 03-22-2025 PT Coag (PPP) [Time] 19.1 s High 11.7-14.9 [facility] Troponin T.cardiac [Mass/vol ume] in Serum or Plasma by High sensitivity methodOrdered By: Krissy Freitas on 03-22-2025 Troponin T.cardiac High sensitivity method [Mass/Vol] 40 ng/L High <22 [facility] Troponin T.cardiac High sensitivity method [Mass/Vol] 42 ng/L High <22 [facility] Troponin T.cardiac High sensitivity method [Mass/Vol] 43 ng/L High <22 [facility] Comment on above: Delta: 39 on CBC W/Diff, Automatedon Absolute Lymph 2.25 X10 3/uL Normal 0.83-4.51 [facility] Comment on above: Performed By: #### L 100.0100, L501.9520, L501.2300, L500.4100, L500.4050 ####[facility] [address] [place], [address] Absolute Neut 4.1 X10 3/uL Normal 2.0-7.7 [facility] Comment on above: Performed By: #### L 100.0100, L501.9520, L501.2300, L500.4100, L500.4050 ####[facility] [address] [place], [address] Basophils/100 WBC (Bld) 0.1 % Normal 0-1 [facility] Comment on above: Performed By: #### L 100.0100, L501.9520, L501.2300, L500.4100, L500.4050 ####[facility] [address] [place], [address] Eosinophils/100 WBC (Bld) 0.3 % Normal 0-5 [facility] Comment on above: Performed By: #### L 100.0100, L501.9520, L501.2300, L500.4100, L500.4050 ####[facility] [address] [place], [address] Erythrocyte distribution width (RBC) [Ratio] 15.4 % High 11.6-14.6 [facility] Comment on above: Performed By: #### L 100.0100, L501.9520, L501.2300, L500.4100, L500.4050 ####[facility] [address] [place], [address] Hematocrit (Bld) [Volume fraction] 45.2 % Normal 40-54 [facility] Comment on above: Performed By: #### L 100.0100, L501.9520, L501.2300, L500.4100, L500.4050 ####[facility] [address] [place], [address] Hemoglobin (Bld) [Mass/Vol] 15.0 g/dL Normal 13.0-16.5 [facility] Comment on above: Performed By: #### L 100.0100, L501.9520, L501.2300, L500.4100, L500.4050 ####[facility] [address] [place], [address] IG% 0.400 Normal 0.0-0.9 [facility] Comment on above: Result Comment: IG% - Immature Granulocytes (promyelocytes, myelocytes and metamyelocytes) > 1% indicates that a LEFT SHIFT is Present. Performed By: #### L 100.0100, L501.9520, L501.2300, L500.4100, L500.4050 ####[facility] [address] [place], [address] Lymphocytes/100 WBC (Bld) 31.8 % Normal 19-41 [facility] Comment on above: Performed By: #### L 100.0100, L501.9520, L501.2300, L500.4100, L500.4050 ####[facility] [address] [place], [address] MCH (RBC) [Entitic mass] 31.4 pg Normal 27.0-32.0 [facility] Comment on above: Performed By: #### L 100.0100, L501.9520, L501.2300, L500.4100, L500.4050 ####[facility] [address] [place], [address] MCHC (RBC) [Mass/Vol] 33.2 g/dL Normal 32-36 [facility] Comment on above: Performed By: #### L 100.0100, L501.9520, L501.2300, L500.4100, L500.4050 ####[facility] [address] [place], [address] MCV (RBC) [Entitic vol] 94.8 fL High 80-94 [facility] Comment on above: Performed By: #### L 100.0100, L501.9520, L501.2300, L500.4100, L500.4050 ####[facility] [address] [place], [address] Monocytes/100 WBC (Bld) 9.5 % Normal 0-10 [facility] Comment on above: Performed By: #### L 100.0100, L501.9520, L501.2300, L500.4100, L500.4050 ####[facility] [address] [place], [address] Neutrophils/100 WBC (Bld) 57.9 % Normal 47-70 [facility] Comment on above: Performed By: #### L 100.0100, L501.9520, L501.2300, L500.4100, L500.4050 ####[facility] [address] [place], [address] Nucleated RBC (Bld) [#/Vol] 0 10*3/uL Normal 0-5 [facility] Comment on above: Performed By: #### L 100.0100, L501.9520, L501.2300, L500.4100, L500.4050 ####[facility] [address] [place], [address] Platelet mean volume (Bld) [Entitic vol] 11.1 fL Normal 6.2-12.0 [facility] Comment on above: Performed By: #### L 100.0100, L501.9520, L501.2300, L500.4100, L500.4050 ####[facility] [address] [place], [address] Platelets (Bld) [#/Vol] 83 10*3/uL Low 150-450 [facility] Comment on above: Performed By: #### L 100.0100, L501.9520, L501.2300, L500.4100, L500.4050 ####[facility] [address] [place], [address] RBC (Bld) [#/Vol] 4.77 10*6/uL Normal 4.6-6.2 [facility] Comment on above: Performed By: #### L 100.0100, L501.9520, L501.2300, L500.4100, L500.4050 ####[facility] [address] [place], [address] RDW SD 52.9 fl High 35.1-43.9 [facility] Comment on above: Performed By: #### L 100.0100, L501.9520, L501.2300, L500.4100, L500.4050 ####[facility] [address] [place], [address] WBC (Bld) [#/Vol] 7.1 10*3/uL Normal 4.4-11.0 [facility] Comment on above: Performed By: #### L 100.0100, L501.9520, L501.2300, L500.4100, L500.4050 ####[facility] [address] [place], [address] Calculated very low density lipoprotein (VLDL) cholesterol measurementOrdered By: Sophia Lowe on 03-21-2025 Calculated very low density lipoprotein (VLDL) cholesterol measurement 9 mg/dL 5-40 [facility] Comprehensive Metabolic Prof ilon 03-21-2025 Albumin [Mass/Vol] 3.4 g/dL Normal 3.4-4.8 [facility] Comment on above: Performed By: #### L 100.0100, L501.9520, L501.2300, L500.4100, L500.4050 ####[facility] [address] [place], [address] Albumin/Globulin [Mass ratio] 1.4 {ratio} Normal 0.9-2.4 [facility] Comment on above: Performed By: #### L 100.0100, L501.9520, L501.2300, L500.4100, L500.4050 ####[facility] [address] [place], [address] ALK PHOS 178 U/L High 40-129 [facility] Comment on above: Performed By: #### L 100.0100, L501.9520, L501.2300, L500.4100, L500.4050 ####[facility] [address] [place], [address] ALT [Catalytic activity/Vol] 128 U/L High <=46 [facility] Comment on above: Performed By: #### L 100.0100, L501.9520, L501.2300, L500.4100, L500.4050 ####[facility] [address] [place], [address] AST [Catalytic activity/Vol] 135 U/L High <=37 [facility] Comment on above: Performed By: #### L 100.0100, L501.9520, L501.2300, L500.4100, L500.4050 ####[facility] [address] [place], [address] Bilirubin [Mass/Vol] 1.09 mg/dL Normal 0.00-1.30 [facility] Comment on above: Performed By: #### L 100.0100, L501.9520, L501.2300, L500.4100, L500.4050 ####[facility] [address] [place], [address] BUN/CRE 19.2 RATIO Normal 10-20 [facility] Comment on above: Performed By: #### L 100.0100, L501.9520, L501.2300, L500.4100, L500.4050 ####[facility] [address] [place], [address] Calcium [Mass/Vol] 8.0 mg/dL Normal 7.6-11.0 [facility] Comment on above: Performed By: #### L 100.0100, L501.9520, L501.2300, L500.4100, L500.4050 ####[facility] [address] [place], [address] Chloride [Moles/Vol] 94 mmol/L Low 98-108 [facility] Comment on above: Performed By: #### L 100.0100, L501.9520, L501.2300, L500.4100, L500.4050 ####[facility] [address] [place], [address] CO2 [Moles/Vol] 29.4 mmol/L Normal 21.0-32.0 [facility] Comment on above: Performed By: #### L 100.0100, L501.9520, L501.2300, L500.4100, L500.4050 ####[facility] [address] [place], [address] Creatinine [Mass/Vol] 1.40 mg/dL High 0.70-1.20 [facility] Comment on above: Performed By: #### L 100.0100, L501.9520, L501.2300, L500.4100, L500.4050 ####[facility] [address] [place], [address] ECRCL 61.25 ml/min Normal 50-250 [facility] Comment on above: Performed By: #### L 100.0100, L501.9520, L501.2300, L500.4100, L500.4050 ####[facility] [address] [place], [address] GAP 12 Normal 5-15 [facility] Comment on above: Performed By: #### L 100.0100, L501.9520, L501.2300, L500.4100, L500.4050 ####[facility] [address] [place], [address] GFR/1.73 sq M.predicted among non-blacks MDRD (S/P/Bld) [Vol rate/Area] 54 mL/min/{1.73_m2} Low >60 [facility] Comment on above: Result Comment: mL/m in/1.73m2 CKD-EPI Creatinine Equation (2020) Performed By: #### L 100.0100, L501.9520, L501.2300, L500.4100, L500.4050 ####[facility] [address] [place], [address] Globulin (S) [Mass/Vol] 2.4 g/dL Normal 2.2-4.2 [facility] Comment on above: Performed By: #### L 100.0100, L501.9520, L501.2300, L500.4100, L500.4050 ####[facility] [address] [place], [address] Glucose [Mass/Vol] 92 mg/dL Normal 70-99 [facility] Comment on above: Performed By: #### L 100.0100, L501.9520, L501.2300, L500.4100, L500.4050 ####[facility] [address] [place], [address] Potassium [Moles/Vol] 3.7 mmol/L Normal 3.3-5.1 [facility] Comment on above: Performed By: #### L 100.0100, L501.9520, L501.2300, L500.4100, L500.4050 ####[facility] [address] [place], [address] Sodium [Moles/Vol] 135 mmol/L Normal 133-145 [facility] Comment on above: Performed By: #### L 100.0100, L501.9520, L501.2300, L500.4100, L500.4050 ####[facility] [address] [place], [address] T PROT 5.8 g/dL Low 5.9-8.4 [facility] Comment on above: Performed By: #### L 100.0100, L501.9520, L501.2300, L500.4100, L500.4050 ####[facility] [address] [place], [address] Urea nitrogen [Mass/Vol] 27 mg/dL High 4-19 [facility] Comment on above: Performed By: #### L 100.0100, L501.9520, L501.2300, L500.4100, L500.4050 ####[facility] [address] [place], [address] Consultation - Cardiologyon 03-21-2025 Consultation - Cardiology [facility] Medical Records Department [address] [place] [address] Consultation - Cardiology 03/21/25 1305 MR#: [id number] Acct: [id number] Name: KELVIN LEE Rep #: [id number] : 1955 69 From: Krissy Freitas MD PCP: Dr. Lee Mathews MD Status:ADM IN Location: [place] [address] Assessment Plan Assessment/Plan (1) Dyspnea: (2) History [...] pain In the on review of the quality assurance monitor noted the patient had A-fib with RVR Has been on IV Cardizem which discontinued. Due to negative inotropic effect patient already had severe LV dysfunction with Will continue on on beta-shaniqua metoprolol in addition to low-dose digoxin. Will evaluate with BNP/trops. Will continue to monitor and follow-up clinically. Krissy Freitas MD,[facility] HPI Consult Data Date of Consult: 03/21/25 HPI Narrative Reason for Consultation: Acute systolic heart failure/A-fib with RVR HPI Narrative: KELVIN LEE, is a 69 M who presents [facility] Medical History PAF (paroxysmal atrial fibrillation) CKD [...] with the nursing staff Review of the quality assurance monitor showed A-fib with RVR Cardiac exam S1-S2 [...] (Auto) 31.0, (more content not included)... Normal [facility] Echo Complete W/ Contraston 03-21-2025 Echo Complete W/ Contrast [facility] Cardiovascular Services [address] [place] [address] Echo Complete W/ Contrast 03/21/25 09 MR#: [id number] Acct: [id number] Name: KELVIN LEE JrSavita Rep #: [id number] : 1955 69 From: Krissy Freitas MD Attending Dr: Dr. Stanley Craig MD Status: ADM IN Ordering Dr: Sophia Lowe MD Date: 03/21/25 Location: [facility] Sex: M C Admitted: 03/20/25 Reason [...] MD; Dr. Stanley Craig MD Date Dictated: 03/21/25 09 Date Transcribed: 03/21/25 120 Welfare Specialist: Signed Normal [facility] Echocardiogram study reportO rdered By: Krissy Freitas on 03-21-2025 Study report [facility] Cardiovascular Services [address] [place] [address] Echo Complete W/ Contrast 03/21/25900 MR#: [id number] Acct: [id number] Name: KELVIN LEE Jr. Rep #:[id number] : 1955 69 From: Krissy Freitas MD Attending Dr: Dr. Stanley Craig MD Status: ADM IN Ordering Dr: Sophia Lowe MD Date: 03/21/25 Location: [facility] Sex: M C Admitted: 03/20/25 Reason [...] Dictated: 03/21/25 09 Date Transcribed: 03/21/25 120 Welfare Specialist: Signed [facility] Work Phone: Electrocardiogram reportOrde red By: Carlton Keyes on 03-21-2025 EKG study [facility] Cardiovascular Services [address] [place] [address] 12 Lead EKG 03/20/25 1736 MR#: [id number] Acct: [id number] Name: KELVIN LEE Jr. Rep #:[id number] : 1955 69 From: Carlton Keyes MD Attending Dr: Dr. Stanley Craig MD Status: ADM IN Ordering Dr: Roselia Han te: 03/20/25 Location: [facility] Sex: M C Admitted: 03/20/25 Test [...] T wave abnormality Abnormal ECG Confirmed by STEPHY DENTON, CARLTON ([id number]), department editor ALIN AIKEN ([id number]) on 03/21/2025 8:20:23 AM Referred By: Confirmed By: CARLTON KEYES MD 03/21/25 0820 Date _ Carlton Keyes MD CC: Dr. Lee Mathews MD; Dr. Stanley Craig MD; FELICIA Murillo ~ Signed [facility] Work Phone: [phone] 03-21-2025 Trop T High Sen 37 ng/L High <=22 [facility] Comment on above: Performed By: #### L 300.8824, L300.3908 #### [facility] Laboratory [address] [place], [address] LDL calc ser/plasOrdered By: Sophia Lowe on 03-21-2025 Cholesterol in LDL [Mass/Vol] 44 mg/dL [facility] Comment on above: Wonhjuvrny=814-324 m g/dL & Higher Qibv=287 mg/dL or greater Lipid Profileon 03-21-2025 CHOL:HDL 2.25 Normal [facility] Comment on above: Performed By: #### L 100.0100, L501.9520, L501.2300, L500.4100, L500.4050 ####[facility] [address] [place], [address] Cholesterol [Mass/Vol] 96 mg/dL Normal <=200 [facility] Comment on above: Result Comment: Chol esterol level, Desirable <200 mg/dL Borderline high cholesterol 200-239 mg/dL High cholesterol >=240 mg/dL Recommendations of the NCEP Adult Treatment Panel for the following risk-cutoff thresholds for the [place] population. Performed By: #### L 100.0100, L501.9520, L501.2300, L500.4100, L500.4050 ####[facility] [address] [place], [address] Cholesterol in HDL [Mass/Vol] 43 mg/dL Normal [facility] Comment on above: Result Comment: Marie onal Cholesterol Education Program (NCEP) guidelines: <40 mg/dL: Low HDL-cholesterol (major risk factor for CHD) >= 60 mg/dL: High HDL-cholesterol (negative risk factor for CHD) HDL-cholesterol is affected by a number of factors, e.g. smoking, exercise, hormones, sex and age. Performed By: #### L 100.0100, L501.9520, L501.2300, L500.4100, L500.4050 ####[facility] [address] [place], [address] Cholesterol in LDL [Mass/Vol] 44 mg/dL Normal [facility] Comment on above: Result Comment: Bord yetlix=895-401 mg/dL Higher Wzjt=861 mg/dL or greater Performed By: #### L 100.0100, L501.9520, L501.2300, L500.4100, L500.4050 ####[facility] [address] [place], [address] Cholesterol in VLDL [Mass/Vol] 9 mg/dL Normal 5-40 [facility] Comment on above: Performed By: #### L 100.0100, L501.9520, L501.2300, L500.4100, L500.4050 ####[facility] [address] [place], [address] Triglyceride [Mass/Vol] 47 mg/dL Normal [facility] Comment on above: Result Comment: The drugs N-Acetylcysteine and Metamizole may falsely depress this assay. Normal range: <150 mg/dL Borderline High: 150-199 mg/dL High: 200-499 mg/dL Very High: >500 mg/dL Performed By: #### L 100.0100, L501.9520, L501.2300, L500.4100, L500.4050 ####[facility] [address] [place], [address] Phosphoruson 03-21-2025 Phosphate [Mass/Vol] 3.9 mg/dL Normal 2.7-4.5 [facility] Comment on above: Performed By: #### L 100.0100, L501.9520, L501.2300, L500.4100, L500.4050 ####[facility] [address] [place], [address] Screening total cholesterol/ high density lipoprotein (HDL) cholesterol ratioOrdered By: Sophia Lowe on 03-21-2025 Cholesterol.total/Choles terol in HDL [Mass ratio] 2.25 {ratio} [facility] Serum or plasma albumin/glob ulin mass ratioOrdered By: Sophia Lowe on 03-21-2025 Albumin/Globulin [Mass ratio] 1.4 {ratio} 0.9-2.4 [facility] Serum or plasma cholesterol in HDL measurement (mass/volume)Ordered By: Sophia Lowe on 03-21-2025 Cholesterol in HDL [Mass/Vol] 43 mg/dL >40 [facility] Comment on above: National Cholesterol Education Program (NCEP) guidelines:<40 mg/dL: Low HDL-cholesterol (major risk factor for CHD)>= 60 mg/dL: High HDL-cholesterol (negative risk factor for CHD)HDL-cholesterol is affected by a number of factors, e.g. smoking, exercise, hormones, sex and age. Serum or plasma cholesterol measurement (mass/volume)Ordered By: Sophia Lowe on 03-21-2025 Cholesterol [Mass/Vol] 96 mg/dL <201 [facility] Comment on above: Cholesterol level, D esirable <200 mg/dLBorderline high cholesterol 200-239 mg/dLHigh cholesterol >=240 mg/dLRecommendations of the NCEP Adult Treatment Panel for the following risk-cutoff thresholds for the [place] population. TSH DL <= 0.005 mIU/L QnOrde red By: Sophia Lowe on 03-21-2025 TSH Qn 1.460 uIU/mL 0.300-4.200 [facility] Thyroid Stim Hormone (TSH)on 03-21-2025 TSH 1.460 uIU/mL Normal 0.300-4.200 [facility] Comment on above: Performed By: #### L 100.0100, L501.9520, L501.2300, L500.4100, L500.4050 ####[facility] [address] [facility] [place], [place], [address] Triglycerides measurementOrd ered By: Sophia Lowe on 03-21-2025 Triglyceride [Mass/Vol] 47 mg/dL <199 [facility] Comment on above: The drugs N-Acetylcy steine and Metamizole may falsely depress this assay. Normal range: <150 mg/dLBorderline High: 150-199 mg/dLHigh: 200-499 mg/dLVery High: >500 mg/dL 12 Lead EKGon 03-20-2025 12 Lead EKG [facility] Cardiovascular Services [address] [place] [address] 12 Lead EKG 03/20/25 1736 MR#: [id number] Acct: [id number] Name: KELVIN LEE Jr. Rep #: [id number] : 1955 69 From: Carlton Keyes MD Attending Dr: Dr. Stanley Craig MD Status: ADM IN Ordering Dr: Roselia Han PA Date: 03/20/25 Location: [facility] Sex: M C Admitted: 03/20/25 Test [...] T wave abnormality Abnormal ECG Confirmed by STEPHY DENTON, CARLTON ([id number]), department editor ALIN AIKEN ([id number]) on 03/21/2025 8:20:23 AM Referred By: Confirmed By: CARLTON KEYES MD 03/21/25 0820 Date Carlton Keyes MD CC: Dr. Lee Mathews MD; Dr. Stanley Craig MD; FELICIA Murillo Signed Normal [facility] Basic Metabolic Profile (BMP )on 03-20-2025 BUN/CRE 16.9 RATIO Normal 10-20 [facility] Comment on above: Performed By: #### L 100.0100, L500.2500 #### [facility] Laboratory [address] [facility] [place], [address] Calcium [Mass/Vol] 8.1 mg/dL Normal 7.6-11.0 [facility] Comment on above: Performed By: #### L 100.0100, L500.2500 #### [facility] [address] [place], [address] Chloride [Moles/Vol] 93 mmol/L Low 98-108 [facility] Comment on above: Performed By: #### L 100.0100, L500.2500 #### [facility] [address] [place], [address] CO2 [Moles/Vol] 30.7 mmol/L Normal 21.0-32.0 [facility] Comment on above: Performed By: #### L 100.0100, L500.2500 #### [facility] [address] [place], [address] Creatinine [Mass/Vol] 1.50 mg/dL High 0.70-1.20 [facility] Comment on above: Performed By: #### L 100.0100, L500.2500 #### [facility] [address] [place], [address] ECRCL 58.08 ml/min Normal 50-250 [facility] Comment on above: Performed By: #### L 100.0100, L500.2500 #### [facility] [address] [place], [address] GAP 10 Normal 5-15 [facility] Comment on above: Performed By: #### L 100.0100, L500.2500 #### [facility] [address] [place], [address] GFR/1.73 sq M.predicted among non-blacks MDRD (S/P/Bld) [Vol rate/Area] 49 mL/min/{1.73_m2} Low >60 [facility] Comment on above: Result Comment: mL/m in/1.73m2 CKD-EPI Creatinine Equation (2020) Performed By: #### L 100.0100, L500.2500 #### [facility] [address] [place], [address] Glucose [Mass/Vol] 108 mg/dL High 70-99 [facility] Comment on above: Performed By: #### L 100.0100, L500.2500 #### [facility] [address] [place], [address] Potassium [Moles/Vol] 4.3 mmol/L Normal 3.3-5.1 [facility] Comment on above: Performed By: #### L 100.0100, L500.2500 #### [facility] [address], [address] Sodium [Moles/Vol] 133 mmol/L Normal 133-145 [facility] Comment on above: Performed By: #### L 100.0100, L500.2500 #### [facility] [address] [place], [address] Urea nitrogen [Mass/Vol] 25 mg/dL High 4-19 [facility] Comment on above: Performed By: #### L 100.0100, L500.2500 #### [facility] [address] [place], [address] Blood polychromasia detectio n by light microscopyOrdered By: Roselia Han on 03-20-2025 Polychromasia LM Ql (Bld) 1+ [facility] CBC W/Diff, Automatedon Anisocytosis Ql (Bld) 1+ Normal [facility] Comment on above: Performed By: #### L 100.0100, L500.2500 ####[facility] [address] [place], [address] PLT EST MOD DEC Normal [facility] Comment on above: Performed By: #### L 100.0100, L500.2500 ####[facility] [address] [place], [address] POLYCHROMASIA 1+ Normal [facility] Comment on above: Performed By: #### L 100.0100, L500.2500 ####[facility] [address] [place], [address] Chest PA and Lateralon 03-20 Chest PA and Lateral [facility] Imaging Services [address] [place] [address] Chest PA and Lateral MR#: [id number] Acct: [id number] Name: KELVIN LEE Jr. Rep #: [id number] : 1955 M 69 From: Jorge porter MD PCP: Dr. Lee Mathews MD Status: REG ER Study: Chest PA and Lateral Date of Exam: 03/20/25 Exam# [id number] Ordering Dr: Roselia Han PROCEDURE: CHEST PA [...] Findings suggestive of vascular congestion. Reading Location: [facility] CC: Dr. Lee Mathews MD; FELICIA Murillo Welfare Specialist: Signed Normal [facility] Emergency Department Summary on 03-20-2025 Emergency Department Summary [facility] Medical Records Department [address] [place] [address] Emergency Department Summary 03/20/25 MR#: [id number] Acct: [id number] Name: KELVIN LEE Jr. Rep #: [id number] : 1955 69 From: Dae Mckeon MD PCP: Dr. Lee Mathews MD Status:ADM IN Location: [place] [address] HPI History of Present Illness Chief Complaint: [...] fevers, chills, chest pain, or recent illness. [facility] Medical History (Updated 03/20/25 @ 20:38 by [...] Extremity Narrativ (more content not included)... Normal [facility] H AND P Exam - Hospitaliston 03-20-2025 H&P Exam - Hospitalist [facility] Medical Records Department [address] [place] [address] H P Exam - Hospitalist 03/20/251950 MR#: [id number] Acct: [id number] Name: KELVIN ELE JrSavita Rep #: [id number] : 1955 69 From: Sophia Lowe MD PCP: Dr. Lee Mathews MD Status:ADM IN Location: [facility] EVK300-5 HPI - General General Date of Admission: 03/20/25 Date of Service: 03/20/25 Chief Complaint: Dyspnea, orthopnea, weight gain, edema. HPI Narrative The patient is a 69 y/o M w/ PMHx: Morbid obesity, HTN, HLD, Anxiety and Depression, COPD, Tobacco use, HFrEF, PAF who presents to the [facility] ED on 03/20/2025 with history of approximately [...] drip given no marked change in rate. [facility] Medical History PAF (paroxysmal atrial fibrillation) CKD [...] 98.7 F (more content not included)... Normal [facility] L499.0042on 03-20-2025 Trop T High Sen 39 ng/L High <=22 [facility] Comment on above: Performed By: #### L 300.4310, L300.3900 #### [facility] Laboratory [address] [place], [address] L501.4021on 03-20-2025 Trop T High Sen 39 ng/L High <=22 [facility] Comment on above: Performed By: #### L 300.4310, L300.3900 #### [facility] [address] [place], [address] Laboratory - Hematology and Cell countsOrdered By: Roselia Han on 03-20-2025 Anisocytosis Ql (Bld) 1+ [facility] Magnesiumon 03-20-2025 Magnesium [Mass/Vol] 2.0 mg/dL Normal 1.5-2.2 [facility] Comment on above: Order Comment: Comme nts: may add to ED labs Performed By: #### L 300.4310, L300.3900 #### [facility] [address] [place], [address] Platelet estimateOrdered By: Roselia Han on 03-20-2025 Platelets LM Ql (Bld) MOD DEC ADEQ [facility] Anion gap in Serum or Plasma Ordered By: Lee Mathews on 03-18-2025 Anion gap [Moles/Vol] 11 mmol/L 5-15 [facility] BUN/creatinine ratioOrdered By: Lee Mathews on 03-18-2025 Urea nitrogen/Creatinine [Mass ratio] 17.4 mg/mg 10-20 [facility] Bilirubin, totalOrdered By: Lee Mathews on 03-18-2025 Bilirubin [Mass/Vol] 0.85 mg/dL 0.00-1.30 [facility] Carbon dioxide, total [Moles /volume] in Central venous bloodOrdered By: Lee Mathews on 03-18-2025 CO2 [Moles/Vol] 29.1 mmol/L 21.0-32.0 [facility] Chloride assayOrdered By: Gilberto Mathews on 03-18-2025 Chloride [Moles/Vol] 98 mmol/L 98-108 [facility] Comprehensive Metabolic Prof ilon 03-18-2025 Albumin [Mass/Vol] 3.6 g/dL Normal 3.4-4.8 [place] [facility] Comment on above: Performed By: #### L 500.4050, L503.7505 ####[facility] [address] [place], [address] Albumin/Globulin [Mass ratio] 1.5 {ratio} Normal 0.9-2.4 [facility] Comment on above: Performed By: #### L 500.4050, L503.7505 ####[facility] [address] [place], [address] ALK PHOS 128 U/L Normal 40-129 [facility] Comment on above: Performed By: #### L 500.4050, L503.7505 ####[facility] [address] [place], [address] ALT [Catalytic activity/Vol] 45 U/L Normal <=46 [facility] Comment on above: Performed By: #### L 500.4050, L503.7505 ####[facility] [address] [place], [address] AST [Catalytic activity/Vol] 44 U/L High <=37 [facility] Comment on above: Performed By: #### L 500.4050, L503.7505 ####[facility] [address] [place], [address] Bilirubin [Mass/Vol] 0.85 mg/dL Normal 0.00-1.30 [facility] Comment on above: Performed By: #### L 500.4050, L503.7505 ####[facility] [address] [place], [address] BUN/CRE 17.4 RATIO Normal 10-20 [facility] Comment on above: Performed By: #### L 500.4050, L503.7505 ####[facility] [address] [place], [address] Calcium [Mass/Vol] 8.1 mg/dL Normal 7.6-11.0 [facility] Comment on above: Performed By: #### L 500.4050, L503.7505 ####[facility] [address] [place], [address] Chloride [Moles/Vol] 98 mmol/L Normal 98-108 [facility] Comment on above: Performed By: #### L 500.4050, L503.7505 ####[facility] [address] [place], [address] CO2 [Moles/Vol] 29.1 mmol/L Normal 21.0-32.0 [facility] Comment on above: Performed By: #### L 500.4050, L503.7505 ####[facility] [address] [place], [address] Creatinine [Mass/Vol] 1.21 mg/dL High 0.70-1.20 [facility] Comment on above: Performed By: #### L 500.4050, L503.7505 ####[facility] [address] [place], [address] GAP 11 Normal 5-15 [facility] Comment on above: Performed By: #### L 500.4050, L503.7505 ####[facility] [address] [place], [address] GFR/1.73 sq M.predicted among non-blacks MDRD (S/P/Bld) [Vol rate/Area] 64 mL/min/{1.73_m2} Normal >60 [facility] Comment on above: Result Comment: mL/m in/1.73m2 CKD-EPI Creatinine Equation (2020) Performed By: #### L 500.4050, L503.7505 ####[facility] [address] [place], [address] Globulin (S) [Mass/Vol] 2.4 g/dL Normal 2.2-4.2 [facility] Comment on above: Performed By: #### L 500.4050, L503.7505 ####[facility] [address] [place], [address] Glucose [Mass/Vol] 94 mg/dL Normal 70-99 [facility] Comment on above: Performed By: #### L 500.4050, L503.7505 ####[facility] [address] [place], [address] Potassium [Moles/Vol] 3.9 mmol/L Normal 3.3-5.1 [facility] Comment on above: Performed By: #### L 500.4050, L503.7505 ####[facility] [address] [place], [address] Sodium [Moles/Vol] 139 mmol/L Normal 133-145 [facility] Comment on above: Performed By: #### L 500.4050, L503.7505 ####[facility] [address] [place], [address] T PROT 6.0 g/dL Normal 5.9-8.4 [facility] Comment on above: Performed By: #### L 500.4050, L503.7505 ####[facility] [address] [place], [address] Urea nitrogen [Mass/Vol] 21 mg/dL High 4-19 [facility] Comment on above: Performed By: #### L 500.4050, L503.7505 ####[facility] [address] [place], [place], [address] Glomerular filtration rate ( GFR) estimation/1.73 sq m using serum, plasma, or whole bOrdered By: Lee Mathews on 03-18-2025 GFR/1.73 sq M.predicted among non-blacks MDRD (S/P/Bld) [Vol rate/Area] 64 mL/min/{1.73_m2} >60 [facility] Comment on above: mL/min/1.73m2 CKD-EP I Creatinine Equation (2020) L503.7505on 03-18-2025 Natriuretic peptide B (Bld) [Mass/Vol] 8957 pg/mL High <=900 [facility] Comment on above: Result Comment: Hear t Failure Unlikely: < 300 pg/mL Heart Failure Likely < 50 Years: > 450 pg/mL 50-75 Years: > 900 pg/mL >75 Years: > 1800 pg/mL Performed By: #### L 500.4050, L503.7505 ####[facility] [address] [facility] [place], [address] Laboratory - Chemistry and C hemistry - challengeOrdered By: Lee Mathews on 03-18-2025 AST [Catalytic activity/Vol] 44 U/L High <38 [facility] Natriuretic peptide.B prohor geraldine N-Terminal [Mass/volume] in Serum or PlasmaOrdered By: Lee Mathews on 03-18-2025 Natriuretic peptide.B prohormone N-Terminal [Mass/Vol] 8957 pg/mL High <900 [facility] Comment on above: Heart Failure Unlike ly: < 300 pg/mLHeart Failure Likely< 50 Years: > 450 pg/mL50-75 Years: > 900 pg/mL>75 Years: > 1800 pg/mL Potassium measurement (mass/ volume)Ordered By: Lee Mathews on 03-18-2025 Potassium (Unsp spec) [Mass/Vol] 3.9 mmol/L 3.3-5.1 [facility] Serum creatinine measurement (mass/volume)Ordered By: Lee Mathews on 03-18-2025 Creatinine [Mass/Vol] 1.21 mg/dL High 0.70-1.20 [facility] Serum globulin measurementOr dered By: Lee Mathews on 03-18-2025 Globulin (S) [Mass/Vol] 2.4 g/dL 2.2-4.2 [facility] Serum glucose measurement (m ass/volume)Ordered By: Lee Mathews on 03-18-2025 Glucose [Mass/Vol] 94 mg/dL 70-99 [facility] Serum or plasma alanine andre otransferase (ALT) measurementOrdered By: Lee Mathews on 03-18-2025 ALT [Catalytic activity/Vol] 45 U/L <47 [facility] Serum or plasma albumin jennifer urement (mass/volume)Ordered By: Lee Mathews on 03-18-2025 Albumin [Mass/Vol] 3.6 g/dL 3.4-4.8 [facility] Serum or plasma albumin/glob ulin mass ratioOrdered By: Lee Mathews on 03-18-2025 Albumin/Globulin [Mass ratio] 1.5 {ratio} 0.9-2.4 [facility] Serum or plasma alkaline elisabeth sphatase measurementOrdered By: Lee Mathews on 03-18-2025 ALP [Catalytic activity/Vol] 128 U/L 40-129 [facility] Serum or plasma calcium jennifer urement (mass/volume)Ordered By: Lee Mathews on 03-18-2025 Calcium [Mass/Vol] 8.1 mg/dL 7.6-11.0 [facility] Serum or plasma urea nitroge n measurement (mass/volume)Ordered By: Lee Mathews on 03-18-2025 Urea nitrogen [Mass/Vol] 21 mg/dL High 4-19 [facility] Sodium levelOrdered By: Asia Mathews on 03-18-2025 Sodium [Moles/Vol] 139 mmol/L 133-145 [facility] Total proteinOrdered By: Carrie Mathews on 03-18-2025 Protein [Mass/Vol] 6.0 g/dL 5.9-8.4 [facility] Absolute lymphocyte countOrd ered By: Lee Mathews on 03-03-2025 Lymphocytes Auto (Unsp spec) [#/Vol] 2.04 10*3/uL 0.83-4.51 [facility] Absolute neutrophil countOrd ered By: Lee Mathews on 03-03-2025 Neutrophils (Bld) [#/Vol] 5.3 10*3/uL 2.0-7.7 [facility] Anion gap in Serum or Plasma Ordered By: Lee Mathews on 03-03-2025 Anion gap [Moles/Vol] 11 mmol/L 5- [facility] Automated lymphocyte count a s percentage of total leukocytesOrdered By: Lee Mathews on 03-03-2025 Lymphocytes/100 WBC Auto (Unsp spec) 25.4 % - [facility] BUN/creatinine ratioOrdered By: [facility] lorismaria a Mathews on 03-03-2025 Urea nitrogen/Creatinine [Mass ratio] 15.7 mg/mg 10- [facility] Basophil percentageOrdered B y: Lee Mathews on 03-03-2025 Basophils/100 WBC (Bld) 0.5 % 0-1 [facility] Bilirubin, totalOrdered By: Lee Mathews on 03-03-2025 Bilirubin [Mass/Vol] 0.83 mg/dL 0.00-1.30 [facility] CBC W/Diff, Automatedon 02-18 Absolute Lymph 2.04 X10 3/uL Normal 0.83-4.51 [facility] Comment on above: Performed By: #### L 300.4310, L300.3900 #### [facility] [address] [place], [address] Absolute Neut 5.3 X10 3/uL Normal 2.0-7.7 [facility] Comment on above: Performed By: #### L 300.4310, L300.3900 #### [facility] [address] [place], [address] Basophils/100 WBC (Bld) 0.5 % Normal 0-1 [facility] Comment on above: Performed By: #### L 300.4310, L300.3900 #### [facility] [address] [place], [address] Eosinophils/100 WBC (Bld) 0.2 % Normal 0-5 [facility] Comment on above: Performed By: #### L 300.4310, L300.3900 #### [facility] [address] [place], [address] Erythrocyte distribution width (RBC) [Ratio] 14.5 % Normal 11.6-14.6 [facility] Comment on above: Performed By: #### L 300.4310, L300.3900 #### [facility] [address] [place], [address] Hematocrit (Bld) [Volume fraction] 44.6 % Normal 40-54 [facility] Comment on above: Performed By: #### L 300.4310, L300.3900 #### [facility] [address] [place], [address] Hemoglobin (Bld) [Mass/Vol] 15.1 g/dL Normal 13.0-16.5 [facility] Comment on above: Performed By: #### L 300.4310, L300.3900 #### [facility] [address] [place], [address] IG% 0.400 Normal 0.0-0.9 [facility] Comment on above: Result Comment: IG% - Immature Granulocytes (promyelocytes, myelocytes and metamyelocytes) > 1% indicates that a LEFT SHIFT is Present. Performed By: #### L 300.4310, L300.3900 #### [facility] [address] [place], [address] Lymphocytes/100 WBC (Bld) 25.4 % Normal 19-41 [facility] Comment on above: Performed By: #### L 300.4310, L300.3900 #### [facility] [address] [place], [address] MCH (RBC) [Entitic mass] 31.6 pg Normal 27.0-32.0 [facility] Comment on above: Performed By: #### L 300.4310, L300.3900 #### [facility] [address] [place], [address] MCHC (RBC) [Mass/Vol] 33.9 g/dL Normal 32-36 [facility] Comment on above: Performed By: #### L 300.4310, L300.3900 #### [facility] [address] [place], [address] MCV (RBC) [Entitic vol] 93.3 fL Normal 80-94 [facility] Comment on above: Performed By: #### L 300.4310, L300.3900 #### [facility] [address] [place], [address] Monocytes/100 WBC (Bld) 8.0 % Normal 0-10 [facility] Comment on above: Performed By: #### L 300.4310, L300.3900 #### [facility] [address] [place], [address] Neutrophils/100 WBC (Bld) 65.5 % Normal 47-70 [facility] Comment on above: Performed By: #### L 300.4310, L300.3900 #### [facility] [address] [place], [address] Nucleated RBC (Bld) [#/Vol] 0 10*3/uL Normal 0-5 [facility] Comment on above: Performed By: #### L 300.4310, L300.3900 #### [facility] [address] [place], [address] Platelet mean volume (Bld) [Entitic vol] 10.0 fL Normal 6.2-12.0 [facility] Comment on above: Performed By: #### L 300.4310, L300.3900 #### [facility] [address] [place], [address] Platelets (Bld) [#/Vol] 100 10*3/uL Low 150-450 [facility] Comment on above: Performed By: #### L 300.4310, L300.3900 #### [facility] [address] [place], [address] RBC (Bld) [#/Vol] 4.78 10*6/uL Normal 4.6-6.2 [facility] Comment on above: Performed By: #### L 300.4310, L300.3900 #### [facility] [address] [place], [address] RDW SD 49.9 fl High 35.1-43.9 [facility] Comment on above: Performed By: #### L 300.4310, L300.3900 #### [facility] [address] [place], [address] WBC (Bld) [#/Vol] 8.0 10*3/uL Normal 4.4-11.0 [facility] Comment on above: Performed By: #### L 300.4310, L300.3900 #### [facility] [address], [address] Carbon dioxide, total [Moles /volume] in Central venous bloodOrdered By: Lee Mathews on 03-03-2025 CO2 [Moles/Vol] 28.6 mmol/L 21.0-32.0 [facility] Chest PA and Lateralon 03-03 Chest PA and Lateral [facility] Imaging Services [address] [facility] [place] [address] Chest PA and Lateral MR#: [id number] Acct: [id number] Name: KELVIN LEE Jr. Rep #: [id number] : 1955 M 69 From: Russel banuelos MD PCP: Dr. Lee Mathews MD Status: REG CLI Study: Chest PA and Lateral Date of Exam: 03/03/25 Exam# [id number] Ordering Dr: Lee Mathews PROCEDURE: CHEST PA [...] of active or chronic tuberculosis. Reading Location: [place] [address] CC: Dr. Lee Mathews MD Welfare Specialist: Signed Normal [facility] Chloride assayOrdered By: Gilberto Mathews on 03-03-2025 Chloride [Moles/Vol] 94 mmol/L Low 98-108 [facility] Comprehensive Metabolic Prof ilon 03-03-2025 Albumin [Mass/Vol] 3.8 g/dL Normal 3.4-4.8 [facility] Comment on above: Performed By: #### L 300.4310, L300.3900 #### [facility] [address] [place], [address] Albumin/Globulin [Mass ratio] 1.6 {ratio} Normal 0.9-2.4 [facility] Comment on above: Performed By: #### L 300.4310, L300.3900 #### [facility] [address] [place], [address] ALK PHOS 73 U/L Normal 40-129 [facility] Comment on above: Performed By: #### L 300.4310, L300.3900 #### [facility] [address] [place], [address] ALT [Catalytic activity/Vol] 25 U/L Normal <=46 [facility] Comment on above: Performed By: #### L 300.4310, L300.3900 #### [facility] [address] [place], [address] AST [Catalytic activity/Vol] 31 U/L Normal <=37 [facility] Comment on above: Performed By: #### L 300.4310, L300.3900 #### [facility] [address] [place], [address] Bilirubin [Mass/Vol] 0.83 mg/dL Normal 0.00-1.30 [facility] Comment on above: Performed By: #### L 300.4310, L300.3900 #### [facility] [address] [place], [address] BUN/CRE 15.7 RATIO Normal 10-20 [facility] Comment on above: Performed By: #### L 300.4310, L300.3900 #### [facility] [address] [place], [address] Calcium [Mass/Vol] 8.8 mg/dL Normal 7.6-11.0 [facility] Comment on above: Performed By: #### L 300.4310, L300.3900 #### [facility] [address] [place], [address] Chloride [Moles/Vol] 94 mmol/L Low 98-108 [facility] Comment on above: Performed By: #### L 300.4310, L300.3900 #### [facility] [address] [place], [address] CO2 [Moles/Vol] 28.6 mmol/L Normal 21.0-32.0 [facility] Comment on above: Performed By: #### L 300.4310, L300.3900 #### [facility] [address] [place], [address] Creatinine [Mass/Vol] 1.06 mg/dL Normal 0.70-1.20 [facility] Comment on above: Performed By: #### L 300.4310, L300.3900 #### [facility] [address] [place], [address] GAP 11 Normal 5-15 [facility] Comment on above: Performed By: #### L 300.4310, L300.3900 #### [facility] [address] [place], [address] GFR/1.73 sq M.predicted among non-blacks MDRD (S/P/Bld) [Vol rate/Area] 75 mL/min/{1.73_m2} Normal >60 [facility] Comment on above: Result Comment: mL/m in/1.73m2 CKD-EPI Creatinine Equation (2020) Performed By: #### L 300.4310, L300.3900 #### [facility] [address] [place], [address] Globulin (S) [Mass/Vol] 2.4 g/dL Normal 2.2-4.2 [facility] Comment on above: Performed By: #### L 300.4310, L300.3900 #### [facility] [address] [place], [address] Glucose [Mass/Vol] 98 mg/dL Normal 70-99 [facility] Comment on above: Performed By: #### L 300.4310, L300.3900 #### [facility] [address] [place], [address] Potassium [Moles/Vol] 4.0 mmol/L Normal 3.3-5.1 [facility] Comment on above: Performed By: #### L 300.4310, L300.3900 #### [facility] [address] [place], [address] Sodium [Moles/Vol] 134 mmol/L Normal 133-145 [facility] Comment on above: Performed By: #### L 300.4310, L300.3900 #### [facility] [address] [place], [address] T PROT 6.1 g/dL Normal 5.9-8.4 [facility] Comment on above: Performed By: #### L 300.4310, L300.3900 #### [facility] [address] [place], [address] Urea nitrogen [Mass/Vol] 17 mg/dL Normal 4-19 [facility] Comment on above: Performed By: #### L 300.4310, L300.3900 #### [facility] [address] [place], [address] Eosinophil percentageOrdered By: Lee Mathews on 03-03-2025 Eosinophils/100 WBC (Bld) 0.2 % 0-5 [facility] Erythrocyte distribution wid th (RBC) [Ratio]Ordered By: Lee Mathews on 03-03-2025 Erythrocyte distribution width (RBC) [Entitic vol] 49.9 fL High 35.1-43.9 [facility] Erythrocyte distribution wid th ratioOrdered By: Lee Mathews on 03-03-2025 Erythrocyte distribution width (RBC) [Ratio] 14.5 % 11.6-14.6 [facility] Erythrocyte distribution wid th standard deviationOrdered By: Lee Mathews on 03-03-2025 Erythrocyte distribution width (RBC) [Ratio] 49.9 fl High 35.1-43.9 [facility] GFR/1.73 sq M.predicted shantanu g non-blacks MDRD (S/P/Bld) [Vol rate/Area]Ordered By: Lee Mathews on 03-03-2025 Estimated GFR (MDRD) Non-Af Amer 75 >60 [facility] Comment on above: mL/min/1.73m2 CKD-EP I Creatinine Equation (2020) Glomerular filtration rate ( GFR) estimation/1.73 sq m using serum, plasma, or whole bOrdered By: Lee Mathews on 03-03-2025 GFR/1.73 sq M.predicted among non-blacks MDRD (S/P/Bld) [Vol rate/Area] 75 mL/min/{1.73_m2} >60 [facility] Comment on above: mL/min/1.73m2 CKD-EP I Creatinine Equation (2020) Hematocrit Auto (Bld) [Volum e fraction]Ordered By: Lee Mathews on 03-03-2025 Hematocrit (Bld) [Volume fraction] 44.6 % 40-54 [facility] Hemoglobin measurementOrdere d By: Lee Mathews on 03-03-2025 Hemoglobin (Bld) [Mass/Vol] 15.1 g/dL 13.0-16.5 [facility] Immature granulocytes/100 WB C Auto (Bld)Ordered By: Lee Mathews on 03-03-2025 Immature granulocytes/100 WBC (Bld) 0.400 % 0.0-0.9 [facility] Comment on above: IG% - Immature Granu locytes (promyelocytes, myelocytes and metamyelocytes) > 1% indicates that a LEFT SHIFT is Present. L503.7505on 03-03-2025 Natriuretic peptide B (Bld) [Mass/Vol] 7533 pg/mL High <=900 [facility] Comment on above: Result Comment: Hear t Failure Unlikely: < 300 pg/mL Heart Failure Likely < 50 Years: > 450 pg/mL 50-75 Years: > 900 pg/mL >75 Years: > 1800 pg/mL Performed By: #### L 300.4310, L300.3900 #### [facility] [place], [address] Laboratory - Chemistry and C hemistry - challengeOrdered By: Lee Mathews on 03-03-2025 AST [Catalytic activity/Vol] 31 U/L <38 [facility] Lymphocytes Auto (Unsp spec) [#/Vol]Ordered By: Lee Mathews on 03-03-2025 Lymphocytes (Bld) [#/Vol] 2.04 10*3/uL 0.83-4.51 [facility] Lymphocytes/100 WBC Auto (Un sp spec)Ordered By: Lee Mathews on 03-03-2025 Lymphocytes/100 WBC (Bld) 25.4 % 19-41 [facility] MCV (mean corpuscular volume ) determinationOrdered By: Lee Mathews on 03-03-2025 MCV (RBC) [Entitic vol] 93.3 fL 80-94 [facility] Mean corpuscular hemoglobin (MCH) determinationOrdered By: Lee Mathews on 03-03-2025 MCH (RBC) [Entitic mass] 31.6 pg 27.0-32.0 [facility] Mean corpuscular hemoglobin concentration (MCHC) determinationOrdered By: Lee Mathews on 03-03-2025 MCHC (RBC) [Mass/Vol] 33.9 g/dL 32-36 [facility] Mean platelet volume determi nationOrdered By: Lee Mathews on 03-03-2025 Platelet mean volume (Bld) [Entitic vol] 10.0 fL 6.2-12.0 [facility] Monocyte percentageOrdered B y: Lee Mathews on 03-03-2025 Monocytes/100 WBC (Bld) 8.0 % 0-10 [facility] Natriuretic peptide.B prohor geraldine N-Terminal [Mass/Vol]Ordered By: Lee Mathews on 03-03-2025 Natriuretic peptide B (Bld) [Mass/Vol] 7533 pg/mL High <900 [facility] Comment on above: Heart Failure Unlike ly: < 300 pg/mLHeart Failure Likely< 50 Years: > 450 pg/mL50-75 Years: > 900 pg/mL>75 Years: > 1800 pg/mL Natriuretic peptide.B prohor geraldine N-Terminal [Mass/volume] in Serum or PlasmaOrdered By: Lee Mathews on 03-03-2025 Natriuretic peptide.B prohormone N-Terminal [Mass/Vol] 7533 pg/mL High <900 [facility] Comment on above: Heart Failure Unlike ly: < 300 pg/mLHeart Failure Likely< 50 Years: > 450 pg/mL50-75 Years: > 900 pg/mL>75 Years: > 1800 pg/mL Neutrophil percentageOrdered By: Lee Mathews on 03-03-2025 Neutrophils/100 WBC (Bld) 65.5 % 47-70 [facility] Nucleated red blood cell per centageOrdered By: Lee Mathews on 03-03-2025 Nucleated RBC/100 WBC (Bld) [Ratio] 0 % 0-5 [facility] Platelet countOrdered By: Gilberto Mathews on 03-03-2025 Platelets (Bld) [#/Vol] 100 10*3/uL Low 150-450 [facility] Potassium (Unsp spec) [Mass/ Vol]Ordered By: Lee Mathews on 03-03-2025 Potassium [Moles/Vol] 4.0 mmol/L 3.3-5.1 [facility] Potassium measurement (mass/ volume)Ordered By: Lee Mathews on 03-03-2025 Potassium (Unsp spec) [Mass/Vol] 4.0 mmol/L 3.3-5.1 [facility] RBC Auto (Bld) [#/Vol]Ordere d By: Lee Mathews on 03-03-2025 RBC (Bld) [#/Vol] 4.78 10*6/uL 4.6-6.2 [facility] Serum creatinine measurement (mass/volume)Ordered By: Lee Mathews on 03-03-2025 Creatinine [Mass/Vol] 1.06 mg/dL 0.70-1.20 [facility] Serum globulin measurementOr dered By: Lee Mathews on 03-03-2025 Globulin (S) [Mass/Vol] 2.4 g/dL 2.2-4.2 [facility] Serum glucose measurement (m ass/volume)Ordered By: Lee Mathews on 03-03-2025 Glucose [Mass/Vol] 98 mg/dL 70-99 [facility] Serum or plasma alanine andre otransferase (ALT) measurementOrdered By: Lee Mathews on 03-03-2025 ALT [Catalytic activity/Vol] 25 U/L <47 [facility] Serum or plasma albumin jennifer urement (mass/volume)Ordered By: Lee Mathews on 03-03-2025 Albumin [Mass/Vol] 3.8 g/dL 3.4-4.8 [facility] Serum or plasma albumin/glob ulin mass ratioOrdered By: Lee Mathews on 03-03-2025 Albumin/Globulin [Mass ratio] 1.6 {ratio} 0.9-2.4 [facility] Serum or plasma alkaline elisabeth sphatase measurementOrdered By: Lee Mathews on 03-03-2025 ALP [Catalytic activity/Vol] 73 U/L 40-129 [facility] Serum or plasma calcium jennifer urement (mass/volume)Ordered By: Lee Mathews on 03-03-2025 Calcium [Mass/Vol] 8.8 mg/dL 7.6-11.0 [facility] Serum or plasma urea nitroge n measurement (mass/volume)Ordered By: Lee Mathews on 03-03-2025 Urea nitrogen [Mass/Vol] 17 mg/dL 4-19 [facility] Sodium levelOrdered By: Asia Mathews on 03-03-2025 Sodium [Moles/Vol] 134 mmol/L 133-145 [facility] TSH DL <= 0.005 mIU/L QnOrde red By: Lee Mathews on 03-03-2025 Thyroid Stimulating Hormone (TSH) 2.040 uIU/mL 0.300-4.200 [facility] TSH Qn 2.040 uIU/mL 0.300-4.200 [facility] Thyroid Stim Hormone (TSH)on 03-03-2025 TSH 2.040 uIU/mL Normal 0.300-4.200 [facility] Comment on above: Performed By: #### L 300.6384, L300.3900 #### [facility] Laboratory [facility] [address] [place], [address] Total proteinOrdered By: Carrie Mathews on 03-03-2025 Protein [Mass/Vol] 6.1 g/dL 5.9-8.4 [facility] White blood cell (WBC) count Ordered By: Lee Mathews on 03-03-2025 WBC (Bld) [#/Vol] 8.0 10*3/uL 4.4-11.0 [facility] Basophil percentageOrdered B y: Uzair Mathews on 02-05-2024 Chloride [Moles/Vol] 97 mmol/L 98-107 [facility] Cholesterol [Mass/Vol] 169 mg/dL <200 [facility] Comment on above: <200 mg/dL Desirable 200-240 mg/dL Borderline >240 mg/dL High Risk Glucose [Mass/Vol] 105 mg/dL 74-106 [facility] Comment on above: Fasting Glucose resu lt from 100 to 125 mg/dL suggests IMPAIRED HOMEOSTASIS per A.D.A. criteria. Potassium [Moles/Vol] 3.8 mmol/L 3.5-5.1 [facility] Sodium [Moles/Vol] 133 mmol/L 136-145 [facility] Triglyceride [Mass/Vol] 103 mg/dL <199 [facility] Comment on above: The drugs N-Acetylcy steine and Metamizole may falsely depress this assay.Serum Triglycerides Reference Interval Normal <150 mg/dL Borderline high 150 - 199 mg/dL High 200 - 499 mg/dL Very High > or = 500 mg/dL Laboratory - Chemistry and C hemistry - challengeOrdered By: Uzair Mathews on 02-05-2024 Cholesterol in HDL [Mass/Vol] 48 mg/dL >40 [facility] Comment on above: The drugs N-Acetylcy steine and Metamizole may falsely depress this assay. Reference Range HDL <40 mg/dL Low HDL Cholesterol HDL >or= 60 mg/dL High HDL Cholesterol Cholesterol in LDL [Mass/Vol] 100 mg/dL 0-130 [facility] CO2 [Moles/Vol] 32.0 mmol/L 21.0-32.0 [facility] Urea nitrogen/Creatinine [Mass ratio] 9.7 mg/mg 10-20 [facility] No Panel InformationOrdered By: Uzair Mathews on 02-05-2024 Estimated GFR (MDRD) Amer 119 mL/min >60 [facility] Comment on above: GFR Calc Estimated GFR (MDRD) Non-Af Amer 98 mL/min >60 [facility] Comment on above: Non- GFR Calc Prostate Specific Antigen Screen 0.72 ng/mL 0.00-4.00 [facility] Comment on above: This test was perfor med using the TPSA assay method for the[employer] chemistry system. Values obtained with differentassay methods cannot be used interchangably.When changing PSA assays in the course of monitoring apatient, additional sequential testing should be carriedout to confirm baseline values. VLDL Cholesterol 21 mg/dL 5-40 [facility] Serum or plasma calcium jennifer urement (mass/volume)Ordered By: Uzair Mathews on 02-05-2024 Calcium [Mass/Vol] 8.7 mg/dL 8.5-10.1 [facility] Serum or plasma creatinine m easurement (mass/volume)Ordered By: Uzair Mathews on 02-05-2024 Creatinine [Mass/Vol] 0.82 mg/dL 0.70-1.30 [facility] Comment on above: The validity of the calculated GFR & GFRAA in patients over 70 years has not been determined. Clinical correlation is essential. Serum or plasma urea nitroge n measurement (mass/volume)Ordered By: Uzair Mathews on 02-05-2024 Urea nitrogen [Mass/Vol] 8 mg/dL 7-18 [facility] Thin prep Papanicolaou smear with manual screeningOrdered By: Uzair Mathews on 02-05-2024 Thin prep Papanicolaou smear with manual screening 4 5-15 [facility] Vital Signs Date Time Vital Sign Value Performing Clinician Faci lity 07-18-2025 18:30-0400 Diastolic blood pressure 62 mm[Hg] Dr. Lee Mathews MD Work Phone: [facility] 07-18-2025 18:30-0400 Heart rate 58 /min Dr. Lee Mathews MD Work Phone: [facility] 07-18-2025 18:30-0400 Respiratory rate 14 /min Dr. Lee Mathews MD Work Phone: [facility] 07-18-2025 18:30-0400 SaO2% (BldA) [Mass fraction] 99 % Dr. Lee Mathews MD Work Phone: [facility] 07-18-2025 18:30-0400 Systolic blood pressure 85 mm[Hg] Dr. Lee Mathews MD Work Phone: 8(547)873-384011 [place] [address] 07-18-2025 18:17-0400 Inhaled oxygen flow rate 6 L/min Dr. Lee Mathews MD Work Phone: 1(326)076-043692 [place] [address] 07-18-2025 17:31-0400 Body temperature 97.2 [degF] Dr. Lee Mathews MD Work Phone: 0(058)200-987292 [place] [address] 07-18-2025 15:47-0400 Body height 172.[address] Lee Mathews MD Work Phone: 8(895)429-136492 [place] [address] 07-18-2025 15:47-0400 Body mass index (BMI) [Ratio] 34.2 kg/m2 Dr. Lee Mathews MD Work Phone: 0(748)025-942892 [place] [address] 07-18-2025 15:47-0400 Body weight 102.[address] Lee Mathews MD Work Phone: 5(075)648-704692 [place] [address] 07-04-2025 13:30-0400 Body height 172.[address] Lee Mathews MD Work Phone: 6(682)716-264792 [place] [address] 07-04-2025 13:30-0400 Body mass index (BMI) [Ratio] 34.3 kg/m2 Dr. Lee Mathews MD Work Phone: 0(707)020-190811 [place] [address] 07-04-2025 13:30-0400 Body weight 102.[address] Lee Mathews MD Work Phone: 1(075)108-445892 [place] [address] 07-04-2025 13:30-0400 Diastolic blood pressure 79 mm[Hg] Dr. Lee Mathews MD Work Phone: 5(643)642-902792 [place] [address] 07-04-2025 13:30-0400 Heart rate 66 /min Dr. Lee Mathews MD Work Phone: 0(818)348-383992 [place] [address] 07-04-2025 13:30-0400 Respiratory rate 18 /min Dr. Lee Mathews MD Work Phone: [facility] 07-04-2025 13:30-0400 SaO2% (BldA) [Mass fraction] 95 % Dr. Lee Mathews MD Work Phone: [facility] 07-04-2025 13:30-0400 Systolic blood pressure 119 mm[Hg] Dr. Lee Mathews MD Work Phone: 4(922)591-072792 [place] [address] 06-27-2025 08:44-0400 Body height 172.[address] Lee Mathews MD Work Phone: 0(472)516-908492 [place] [address] 06-27-2025 08:44-0400 Body weight 102.[address] Lee Mathews MD Work Phone: 7(120)942-633192 [place] [address] 05-28-2025 08:19-0400 Body height 172.[address] Lee Mathews MD Work Phone: 7(037)016-387192 [place] [address] 05-28-2025 08:19-0400 Body weight 103.[address] Lee Mathews MD Work Phone: 4(695)078-851492 [place] [address] 05-27-2025 13:59-0400 Body height 172.[address] Lee Mathews MD Work Phone: 3(781)818-318792 [place] [address] 05-27-2025 13:59-0400 Body mass index (BMI) [Ratio] 34.3 kg/m2 Dr. Lee Mathews MD Work Phone: 4(448)517-950711 [place] [address] 05-27-2025 13:59-0400 Body weight 102.[address] Lee Mathews MD Work Phone: 5(808)891-204892 [place] [address] 05-27-2025 13:59-0400 Diastolic blood pressure 68 mm[Hg] Dr. Lee Mathews MD Work Phone: 9(521)802-136711 [place] [address] 05-27-2025 13:59-0400 Heart rate 60 /min Dr. Lee Mathews MD Work Phone: 4(091)928-280711 [place] [address] 05-27-2025 13:59-0400 Respiratory rate 18 /min Dr. Lee Mathews MD Work Phone: [facility] 05-27-2025 13:59-0400 Systolic blood pressure 103 mm[Hg] Dr. Lee Mathews MD Work Phone: [facility] 05-05-2025 11:28-0400 Body height 172.[address] Lee Mathews MD Work Phone: 9(950)132-297211 [place] [address] 05-05-2025 11:28-0400 Body weight 115.[address] Lee Mathews MD Work Phone: 0(227)724-361611 [place] [address] 05-02-2025 08:23-0400 Body mass index (BMI) [Ratio] 38.7 kg/m2 Dr. Lee Mathews MD Work Phone: 8(368)852-840677 [address] 05-01-2025 13:50-0400 Body mass index (BMI) [Ratio] 34.2 kg/m2 Dr. Lee Mathews MD Work Phone: [facility] 05-01-2025 13:49-0400 Body weight 102.[address] Lee Mathews MD Work Phone: [facility] 05-01-2025 13:04-0400 Diastolic blood pressure 83 mm[Hg] Dr. Lee Mathews MD Work Phone: [facility] 05-01-2025 13:04-0400 Heart rate 95 /min Dr. Lee Mathews MD Work Phone: [facility] 05-01-2025 13:04-0400 SaO2% (BldA) [Mass fraction] 98 % Dr. Lee Mathews MD Work Phone: [facility] 05-01-2025 13:04-0400 Systolic blood pressure 122 mm[Hg] Dr. Lee Mathews MD Work Phone: [facility] 04-03-2025 08:24-0400 Body mass index (BMI) [Ratio] 38.7 kg/m2 Dr. Lee Mathews MD Work Phone: [facility] 04-03-2025 08:24-0400 Body weight 115.[address] Lee Mathews MD Work Phone: 8(344)591-495892 [place] [address] 04-03-2025 08:24-0400 Diastolic blood pressure 83 mm[Hg] Dr. Lee Mathews MD Work Phone: 1(297)502-074592 [place] [address] 04-03-2025 08:24-0400 Heart rate 95 /min Dr. Lee Mathews MD Work Phone: 7(288)172-045492 [place] [address] 04-03-2025 08:24-0400 Respiratory rate 18 /min Dr. Lee Mathews MD Work Phone: 1(281)788-214292 [place] [address] 04-03-2025 08:24-0400 SaO2% (BldA) [Mass fraction] 98 % Dr. Lee Mathews MD Work Phone: 0(549)740-954192 [place] [address] 04-03-2025 08:24-0400 Systolic blood pressure 122 mm[Hg] Dr. Lee Mathews MD Work Phone: 1(770)520-447892 [place] [address] 03-27-2025 14:21-0400 Body temperature 97.5 [degF] Dr. Lee Mathews MD Work Phone: 8(721)652-757592 [place] [address] 03-27-2025 14:21-0400 Diastolic blood pressure 92 mm[Hg] Dr. Lee Mathews MD Work Phone: 7(146)536-281992 [place] [address] 03-27-2025 14:21-0400 Heart rate 101 /min Dr. Lee Mathews MD Work Phone: 6(342)907-276792 [place] [address] 03-27-2025 14:21-0400 Respiratory rate 18 /min Dr. Lee Mathews MD Work Phone: 0(035)542-987392 [place] [address] 03-27-2025 14:21-0400 SaO2% (BldA) [Mass fraction] 92 % Dr. Lee Mathews MD Work Phone: 3(312)330-004811 [place] [address] 03-27-2025 14:21-0400 Systolic blood pressure 110 mm[Hg] Dr. Lee Mathews MD Work Phone: [facility] 03-27-2025 12:49-0400 Body temperature 97.5 [degF] Dr. Lee Mathews MD Work Phone: [facility] 03-27-2025 12:49-0400 Diastolic blood pressure 92 mm[Hg] Dr. Lee Mathews MD Work Phone: [facility] 03-27-2025 12:49-0400 Heart rate 101 /min Dr. Lee Mathews MD Work Phone: [facility] 03-27-2025 12:49-0400 Respiratory rate 18 /min Dr. Lee Mathews MD Work Phone: [facility] 03-27-2025 12:49-0400 SaO2% (BldA) [Mass fraction] 92 % Dr. Lee Mathews MD Work Phone: [facility] 03-27-2025 12:49-0400 Systolic blood pressure 110 mm[Hg] Dr. Lee Mathews MD Work Phone: [facility] 03-26-2025 09:57-0400 Body mass index (BMI) [Ratio] 37.1 kg/m2 Dr. Lee Mathews MD Work Phone: [facility] 03-26-2025 09:57-0400 Body weight 110.[address] Lee Mathews MD Work Phone: [facility] 03-24-2025 13:15-0400 Body height 172.[address] Lee Mathews MD Work Phone: [facility] Encounters Encounter Date Encounter Type Care Provider Facility Start: 07-18-2025 End: 07-18-2025 Emergency department patient visit Isaias Rocha Facility:[facility] Start: 07-18-2025 carlee Keyes Facility:[facility] Start: 07-18-[address] Carlton Keyes MD -Cardiac Rehab Work Phone: Start: 07-09-[address] Carlton Keyes MD -Cardiac Rehab Work Phone: Start: 07-04-2025 End: 07-04-2025 Patient encounter procedure Ariane Perez PIANO REGULATOR-C -[facility] Work Phone: Start: 07-04-2025 End: 07-04-[address] Lee Mathews MD Work Phone: -[facility] Start: 07-03-2025 Non-patient / Non-visit Ariane Perez PIANO REGULATOR-C -[facility] Work Phone: Start: 07-03-2025 ambulatory Ariane Perez PIANO REGULATOR Facili ty:[facility] Start: 07-02-[address] Carlton Keyes MD -Cardiac Rehab Work Phone: Start: 07-02-2025 Non-patient / Non-visit Dr. Carlton Keyes MD -[facility] Start: 07-02-2025 End: 07-02-[address] Lee Mathews MD Work Phone: -Cardiovascular Services Start: 07-02-2025 End: 07-02-2025 Patient encounter procedure Ariane Perez PIANO REGULATOR-C -Cardiovascular Services Work Phone: Start: 07-02-2025 End: 07-02-2025 ambulatory Ariane Perez NP Facility:[facility] Start: 06-30-[address] Carlton Keyes MD -Cardiac Rehab Work Phone: Start: 06-23-2025 Non-patient / Non-visit Dr. Carlton Keyes MD -[facility] Work Phone: Start: 06-23-2025 End: 06-23-[address] Lee Mathews MD Work Phone: -Pulmonary Services/Neurology Start: 06-23-2025 End: 06-23-2025 Patient encounter procedure Shanti DUARTE -Pulmonary Services/Neurology Work Phone: Start: 06-23-2025 End: 06-23-2025 ambulatory Shanti DUARTE Facility:[facility] Start: 06-18-2025 End: 06-19-[address] Lee Mathews MD Work Phone: -Cardiac Rehab Start: 06-18-2025 End: 06-19-[address] Carlton Keyes MD -Cardiac Rehab Work Phone: Start: 05-27-2025 End: 05-27-[address] Lee Mathews MD Work Phone: -[facility] Start: 05-27-2025 End: 05-27-2025 Patient encounter procedure Mihai DUARTE -[facility] Work Phone: Start: 05-26-[address] Carlton Keyes MD -Cardiac Rehab Work Phone: Start: 05-19-2025 End: 05-19-[address] Lee Mathews MD Work Phone: -Cardiac Rehab Start: 05-19-2025 End: 05-19-[address] Carlton Keyes MD -Cardiac Rehab Work Phone: Start: 05-12-2025 End: 05-12-[address] Carlton Keyes MD -[facility] Work Phone: Start: 05-12-2025 End: 05-12-[address] Lee Mathews MD Work Phone: [facility] Work Phone: Start: 05-09-[address] Carlton Keyes MD -Cardiac Rehab Work Phone: Start: 05-05-2025 ambulatory Carlton Keyes Facility:[facility] Start: 05-05-2025 Non-patient / Non-visit Dr. Nigel Read DO -[facility] Start: 05-05-2025 End: 05-05-2025 Admission to same day surgery center Dr. Carlton Keyes MD -Fur Tailor/Special Procedures Work Phone: Start: 05-05-2025 End: 05-05-[address] Lee Mathews MD Work Phone: [facility] Work Phone: Start: 05-01-2025 Non-patient / Non-visit Dr. Carlton Keyes MD -[facility] Start: 05-01-2025 End: 05-01-[address] Lee Mathews MD Work Phone: [facility] Work Phone: Start: 05-01-2025 End: 05-01-[address] Carlton Keyes MD -Cardiac Rehab Work Phone: Start: 05-01-2025 End: 05-01-2025 ambulatory Carlton Keyes Facility:[facility] Start: 04-03-2025 End: 04-03-[address] Lee Mathews MD Work Phone: [facility] Work Phone: Start: 04-03-2025 End: 04-03-2025 Patient encounter procedure Ariane Perez PIANO REGULATOR-C -Laboratory Work Phone: Start: 04-03-2025 End: 04-03-2025 Patient encounter procedure Ariane Perez PIANO REGULATOR-C -[facility] Work Phone: Start: 04-03-2025 End: 04-03-[address] Lee Mathews MD Work Phone: [facility] Work Phone: Start: 04-03-2025 End: 04-03-2025 ambulatory Ariane Perez NP Facility:[facility] Start: 03-27-2025 Non-patient / Non-visit Dr. Derrick Chacon MD -[facility] Work Phone: Start: 03-27-2025 Non-patient / Non-visit Dr. Madhu Bautista MD -[facility] Start: 03-26-2025 Non-patient / Non-visit Dr. Derrick Chacon MD -[facility] Work Phone: Start: 03-26-2025 Non-patient / Non-visit Dr. Madhu Bautista MD [facility] Start: 03-25-2025 Non-patient / Non-visit Dr. Derrick Chacon MD -[facility] Work Phone: Start: 03-25-2025 ambulatory Lee Quan lit:[facility] Start: 03-25-2025 Non-patient / Non-visit Dr. Madhu Bautista MD [facility] Start: 03-24-2025 Non-patient / Non-visit Dr. Derrick Chacon MD [facility] Work Phone: Start: 03-24-2025 Non-patient / Non-visit Dr. Carlton Keyes MD [facility] Start: 03-24-2025 ambulatory Carlton Keyes Facility:[facility] Start: 03-23-2025 Non-patient / Non-visit Dr. Krissy Freitas MD [facility] Start: 03-23-2025 Non-patient / Non-visit Dr. Stanley Carig MD [facility] Work Phone: Start: 03-22-2025 Non-patient / Non-visit Dr. Krissy Freitas MD [facility] Start: 03-22-2025 Non-patient / Non-visit Dr. Stanley Craig MD [facility] Work Phone: Start: 03-21-2025 Non-patient / Non-visit Dr. Stanley Craig MD [facility] Work Phone: Start: 03-21-2025 ambulatory Lee Quan lity:[facility] Start: 03-21-2025 Non-patient / Non-visit Dr. Krissy Freitas MD [facility] Start: 03-20-2025 Non-patient / Non-visit Dr. Sophia Lowe MD -[facility] Work Phone: Start: 03-20-2025 ambulatory Lee Mathews Faci lity:[facility] Start: 03-20-2025 End: 03-27-2025 Evaluation and management of inpatient Dr. Derrick Chacon MD -Progressive Care Unit Work Phone: Start: 03-18-2025 End: 03-18-[address] [facility] Start: 03-18-2025 End: 03-18-2025 ambulatory Lee Mathews Facility:[facility] Start: 03-03-2025 End: 03-03-[address] Lee Mathews MD Work Phone: [facility] Work Phone: Start: 03-03-2025 End: 03-03-[address] [facility] Start: 03-03-2025 End: 03-03-2025 ambulatory Lee Mathews Facility:[facility] Start: 02-05-2024 End: 02-05-2024 ambulatory [facility] Work Phone: Start: 02-05-2024 End: 02-05-2024 Patient encounter [facility] Procedures Date Procedure Procedure Detail Performing Clinician Start: 07-18-[address] Lee Mathews MD Work Phone: Start: 07-18-2025 Plain chest X-ray Dr. Brooke Mathews MD Work Phone: Start: 05-05-[address] Lee Mathews MD Work Phone: Start: 04-03-2025 Evaluation of diagno stic study results Dr. Lee Mathews MD Work Phone: Start: 03-27-[address] Lee [...] Treatment Date Care Activity Detail Author Start: 07-18-2025 Electrocardiographic procedure [facility] Start: 07-18-2025 End: 07-18-2025 [facility] Start: 07-18-2025 End: 07-18-2025 [facility] Start: 05-27-2025 Evaluation of diagnostic study results [facility] Start: 05-12-2025 Evaluation of diagnostic study results [facility] Start: 05-05-2025 Patient discharge [facility] Start: 04-03-2025 Evaluation of diagnostic study results 12 Lead EKG performed by [facility] Start: 03-27-2025 Patient discharge [facility] Start: 03-24-2025 Patient referral [facility] Work Phone: Start: 03-24-2025 Notification of physician [facility] Start: 03-24-2025 Patient education [facility] Start: 03-24-2025 Provision of activity privileges [facility] Start: 03-24-2025 Pulse taking [facility] Start: 03-24-2025 Taking patient vital signs [facility] Start: 03-24-2025 Wound care [facility] Start: 03-24-2025 [facility] Start: 03-24-2025 Catheterization of vein [facility] Start: 03-24-2025 Medication not administered [facility] Start: 03-24-2025 [facility] Start: 03-23-2025 [facility] Start: 03-22-2025 [facility] Start: 03-21-2025 Care planning and problem solving actions [facility] Start: 03-21-2025 Referral to receiver bulk system [facility] Start: 03-21-2025 Care planning and problem solving actions [facility] Start: 03-21-2025 [facility] Start: 03-20-2025 End: 03-21-2025 [facility] Start: 03-20-2025 Following clinical pathway protocol [facility] Start: 03-20-2025 Assessment of risk of venous thromboembolism [facility] Start: 03-20-2025 Insertion of catheter into peripheral vein [facility] Start: 03-20-2025 Measuring intake and output [facility] Start: 03-20-2025 Patient referral to dietitian [facility] Start: 03-20-2025 Providing care according to standard [facility] Start: 03-20-2025 Provision of activity privileges [facility] Start: 03-20-2025 Tobacco use cessation education [facility] Start: 03-20-2025 Introduction of urinary catheter [facility] Start: 03-20-2025 Referral to service [facility] Start: 03-20-2025 Application of elastic bandage [facility] Start: 03-20-2025 Elevation of affected extremity [facility] Start: 03-20-2025 Notification of physician [facility] Start: 03-20-2025 Patient education [facility] Start: 03-20-2025 Admission procedure [facility] Start: 03-20-2025 [facility] Start: 03-20-2025 [facility] Basic metabolic 2007 panel with ionized calcium - Serum or Plasma [facility] Basic metabolic 2007 panel with ionized calcium - Serum or Plasma [facility] Cardioversion [facility] CBC W Auto Different ial panel - Blood [facility] Natriuretic peptide. B prohormone N-Terminal [Mass/volume] in Serum or Plasma [facility] Patient Education ED AFIB [facility] Work Phone: Patient referral [facility] Work Phone: Polysomnography [facility] Troponin T.cardiac [Mass/volume] in Serum or Plasma by High sensitivity method [facility] Payers Date Payer Category Payer Medicare [id number] 2025 Self-pay [id number] Medicare [id number] Private Health Insurance [employer] [id number] Unknown [id number] Unknown [id number] Unknown [id number] Unknown [id number] Unknown [id number] Unknown [id number] Unknown [id number] Unknown [id number] 2.16.840.1.539624.3.579.2.462 Unknown [id number] 2.16.840.1.640269.3.579.2.462 Unknown [id number] 2.16.840.1.786635.3.579.2.462 Unknown [id number] 2.16.840.1.824111.3.579.2.462 Unknown [id number] 2.16.840.1.673460.3.579.2.462 Unknown [id number] 2.16.840.1.653332.3.579.2.462 Unknown [id number] 2.16.840.1.105880.3.579.2.462 Unknown [id number] 2.16.840.1.163677.3.579.2.462 Unknown [id number] 2.16.840.1.090026.3.579.2.462 Unknown [id number] 2.16.840.1.213646.3.579.2.462 Unknown [id number] 2.16.840.1.120161.3.579.2.462 Unknown [id number] 2.16.840.1.534042.3.579.2.462 Unknown [id number] 2.16.840.1.958678.3.579.2.462 Unknown [id number] 2.16840.1.167268.3.579.2.462 Unknown [id number] 2.840.1.641555.3.579.2.462 Unknown [id number] 2.840.1.168596.3.579.2.462 Unknown [id number] 2.840.1.394405.3.579.2.462 Unknown [id number] 2.16840.1.054829.3.579.2.462 Unknown [id number] 2.840.1.522400.3.579.2.462 Unknown [id number] 2.16840.1.196715.3.579.2.462 Unknown [id number] 2.840.1.287575.3.579.2.462 Unknown [id number] 2.16.840.1.265569.3.579.2.462 Unknown [id number] 2.16.840.1.451149.3.579.2.462 Unknown [id number] 2.16.840.1.609481.3.579.2.462 Unknown [id number] 2.16.840.1.237306.3.579.2.462 Unknown [id number] 2.840.1.677533.3.579.2.462 Unknown [id number] 2.840.1.144911.3.579.2.462 Unknown [id number] 2.840.1.025972.3.579.2.462 Unknown [id number] 2.840.1.504443.3.579.2.462 Unknown [id number] 2.0.1.669819.3.579.2.462 Unknown [id number] 2.840.1.613902.3.579.2.462 Unknown [id number] 2.0.1.908308.3.579.2.462 Social History Date Type Detail Facility Start: 11-13-2021 Tobacco smoking stat [facility] Unknown if ever smoked [facility] Start: 11-13-[address] [facility] Start: 06-29-[address] [facility] Start: 1955 Sex Assigned At Male [facility] Start: 11-13-2021 End: 03-20-2025 Tobacco smoking status HIIS Current some day smoker [facility] Start: 03-06-2025 Sex Male (finding) [facility] Start: 05-05-2025 End: 07-18-2025 Tobacco smoking status HIIS Smokes tobacco daily (finding) [facility] Medical Equipment Procedure Code Equipment Code Equipment [...] Functional status Ambulates;Up a d amira;Bathroom Privilege [facility] Work Phone: Mental Status Date Assessment Result Facility 07-18-2025 Cognitive function Awake;Appropr iate;Follows Commands;Drowsy [facility] Work Phone: 03-27-2025 Cognitive function Voice/Name [facility] Work Phone: Clinical Notes 03-04-2025 to 07-18-2025 Note Date & Type Note Facility 07-18-2025 Discharge summary [facility] 07-18-2025 Radiology Diagnostic study note [facility] Imaging Services [address] [place], [place] [address] Chest 1 View (Portable) MR#: [id number] Acct: [id number] Name: KELVIN LEE Jr. Rep #: [id number] : 1955 M 70 From: Dennis De La Torre MD PCP: Dr. Lee Mathews MD Status: [facility] ER Study:Chest 1 View (Portable) Date of Exam: 07/18/25 Exam# [id number] Ordering Dr: Tammy Rocha MD PROCEDURE: CHEST 1 VIEW (PORTABLE) 07/18/2025 REASON FOR EXAM: CHEST PAIN TECHNIQUE: Frontal view of the chest. COMPARISON: 03/20/2025 FINDINGS: Lungs/Pleura: Clear. No pneumothorax or sizable pleural effusion. Heart/Mediastinum: Cardiomegaly. Tortuous thoracic aorta. Bones/Soft tissues: No significant abnormality. RAD/Chest 1 View (Portable) IMPRESSION: Cardiomegaly. No acute pulmonary disease. Reading Location: [facility] CC: Dr. Lee Mathews MD; Dr. Isaias Rocha MD ~ Welfare Specialist: Signed [facility] 07-18-2025 Discharge summary Note Date/Time July 18, 2025 6:57pm [facility] Medical Records Department [address] [place] [address] Emergency Department Summary 07/18/25 MR#: [id number] Acct: [id number] Name: KELVIN LEE Jr. Rep #:[id number] : 1955 70 From: Isaias Rocha MD PCP: Dr. Lee Mathews MD Status :REG ER Location: ED HPI History of Present Illness Chief Complaint: Palpitations Informant: patient Narrative Narrative: 68-year-old male history of A-fib. Cardioversion done in April was hospitalized at that time. An EF of under 20% has had an echo since then it reportedly recovered. He is chronically on Eliquis for anticoagulation. Today he was in cardiac rehab was told he thought he was in A-fib and seen in the ER. Denies any chest pain. Denies any significant shortness of breath. Prior Similar Symptoms: Yes Recent Illness/Hospitalization: Yes (April of this year.) CVD Risk Factors: Negative for Hypertension or Diabetes PE Risk Factors: Negative for Recent Travel/Surgery, Recent Immobilization, Prior DVT or PE, Cancer or OCP + Smoking + >/=35 TAD Risk Factors: Negative for Marfan's Syndrome [facility] Medical History Cardiac LV ejection fraction 10-20% History of COPD PAF (paroxysmal atrial fibrillation) CKD (chronic kidney disease), stage II Thrombocytopenia COPD (chronic obstructive pulmonary disease) Morbid obesity HLD (hyperlipidemia) HTN (hypertension) Tobacco use Anxiety and depression Cancer Home Medications ?Medication ?Instructions ?Recorded ?Last Taken ?Type apixaban 5 mg tablet (Eliquis) 5 mg PO BID blood thinn er #60 tabs 04/03/25 05/05/25 Rx empagliflozin 10 mg tablet 10 mg PO DAILY #30 tabs Unknown Rx (Jardiance) spironolactone 25 mg tablet 25 mg PO DAILY #30 tabs Unknown Rx metoprolol tartrate 50 mg tablet 50 mg PO BID #60 tabs 05/12/25 Unknown Rx lisinopril 5 mg tablet 5 mg PO QDAY #30 tabs Unknown Rx furosemide 40 mg tablet 40 mg PO DAILY #90 tabs 05/22 12/14 Unknown Rx Allergy/AdvReac Type Severity Reaction Status Date / Time sertraline (From Zoloft) Allergy Other Verified 07/18/25 15:47 Family History Father History of blood clots Lupus Bowel disease Colon cancer Skin cancer CVA (cerebral vascular accident) Mother Hypertension Surgical History History of appendectomy Social History household members: spouse Smoking Status: Current every day smoker tobacco type: cigarettes alcohol intake: never substance use type: does not use additional social history: DOES USE ASPIRIN ROS ROS ED ROS Narrative Malaise. No chest pain. Constitutional Constitutional ED: Denies chills or fever(s) Eyes Eyes: Reports none ENT ENT ED: Denies ear pain Cardiovascular Cardiovascular: Reports as per HPI; Denies chest pain or racing heartbeat Respiratory/Chest Respiratory/Chest: Denies cough, dyspnea or dyspnea on exertion Gastrointestinal Gastrointestinal: Denies abdominal pain, diarrhea, nausea or vomiting Genitourinary Genitourinary ED: Denies dysuria or hematuria Musculoskeletal Musculoskeletal: Denies arthralgias or back pain Integumentary Denies abscess Neurologic Neurologic: Denies headache(s) Psychiatric Psychiatric: Denies anxiety Endocrine Endocrinology: Denies cold intolerance Hematologic/Lymphatic Hematologic/Lymphatic: Denies lymphadenopathy Allergic/Immunologic Allergic/Immunologic ED: Denies mouth swelling, tongue swelling or urticaria EXAM Physical Exam Narrative Exam Narrative: Well-appearing 70-year-old male. Vital signs initially stable and afebrile. Initial blood pressure was only 95 / 79 his pulse ox 96% on room air. He appears to be in A-fib rate between 98- 120. He is tolerating it well. H EENT exam pupils round reactive light. Moist extremity. Neck nontender no JVD. No lymphadenopathy. Lungs clear to auscultation bilaterally. Heart A-fib rate about 110. Abdomen soft and nontender. Moving all 4 extremities. Nontender noedema no cords. Neurologically is awake alert. Answering questions following commands. Const Vital Signs: 07/18/25 15:47 07/18/25 16:47 07/18/25 16:54 Temperature 98.0 F Temperature Source Oral Pulse Rate 72 82 Pulse Rate [Procedural sedation for cardioversion for A-fib:] Respiratory Rate 16 19 H Respiratory Rate [Procedural sedation for cardioversion for A-fib:] Respiratory Effort Blood Pressure 95/79 81/53 L Blood Pressure [Procedural sedation for cardioversion for A-fib:] Blood Pressure Mean 84 62 Baseline BP Pulse Ox 96 96 Oxygen Delivery Method Room Air Room Air Room Air Oxygen Delivery Method [Procedural sedation for cardioversion for A-fib:] Oxygen Flow Rate (L/min) [Procedural sedation for cardioversion for A-fib:] EtCo2 - Document during CPR and with ROSC EtCo2 - Document during CPR and with ROSC [Procedural sedation for cardioversion for A-fib:] 07/18/25 16:54 07/18/25 17:13 07/18/25 17:31 Temperature 97.2 F L Temperature Source Pulse Rate 86 75 Pulse Rate [Procedural sedation for cardioversion for A-fib:] Respiratory Rate 23 H 31 H Respiratory Rate [Procedural sedation for cardioversion for A-fib:] Respiratory Effort Normal Non-Labored Blood Pressure 92/57 L 79/51 L Blood Pressure [Procedural sedation for cardioversion for A-fib:] Blood Pressure Mean 68 Baseline BP 79/51 Pulse Ox 100 97 Oxygen Delivery Method Room Air Room Air Oxygen Delivery Method [Procedural sedation for cardioversion for A-fib:] Oxygen Flow Rate (L/min) [Procedural sedation for cardioversion for A-fib:] EtCo2 - Document during CPR and with ROSC 40 EtCo2 - Document during CPR and with ROSC [Procedural sedation for cardioversion for A-fib:] 07/18/25 17:40 07/18/25 17:51 07/18/25 18:00 Temperature Temperature Source Pulse Rate 73 78 82 Pulse Rate [Procedural sedation for cardioversion for A-fib:] Respiratory Rate 27 H 26 H 16 Respiratory Rate [Procedural sedation for cardioversion for A-fib:] Respiratory Effort Blood Pressure 73/59 L 102/62 82/54 L Blood Pressure [Procedural sedation for cardioversion for A-fib:] Blood Pressure Mean 63 75 63 Baseline BP Pulse Ox 97 95 97 Oxygen Delivery Method Room Air Room Air Room Air Oxygen Delivery Method [Procedural sedation for cardioversion for A-fib:] Oxygen Flow Rate (L/min) [Procedural sedation for cardioversion for A-fib:] EtCo2 - Document during CPR and with ROSC EtCo2 - Document during CPR and with ROSC [Procedural sedation for cardioversion for A-fib:] 07/18/25 18:12 07/18/25 18:17 07/18/25 18:20 Temperature Temperature Source Pulse Rate 84 53 L Pulse Rate [Procedural sedation for cardioversion for A-fib:] 81 Respiratory Rate 15 Respiratory Rate [Procedural sedation for cardioversion for A-fib:] 14 Respiratory Effort Blood Pressure 93/58 L 106/96 H Blood Pressure [Procedural sedation for cardioversion for A-fib:] 93/58 L Blood Pressure Mean 69 Baseline BP Pulse Ox 99 Oxygen Delivery Method Room Air Oxygen Delivery Method [Procedural sedation for cardioversion for A-fib:] NasalCannula Oxygen Flow Rate (L/min) [Procedural sedation for cardioversion for A-fib:] 6 EtCo2 - Document during CPR and with ROSC 42 EtCo2 - Document during CPR and with ROSC [Procedural sedation for cardioversion for A-fib:] 42 07/18/25 18:25 07/18/25 18:30 Temperature Temperature Source Pulse Rate 57 L 58 L Pulse Rate [Procedural sedation for cardioversion for A-fib:] Respiratory Rate 16 14 Respiratory Rate [Procedural sedation for cardioversion for A-fib:] Respiratory Effort Blood Pressure 106/73 85/62 L Blood Pressure [Procedural sedation for cardioversion for A-fib:] Blood Pressure Mean Baseline BP Pulse Ox 99 99 Oxygen Delivery Method Room Air Room Air Oxygen Delivery Method [Procedural sedation for cardioversion for A-fib:] Oxygen Flow Rate (L/min) [Procedural sedation for cardioversion for A-fib:] EtCo2 - Document during CPR and with ROSC 34 35 EtCo2 - Document during CPR and with ROSC [Procedural sedation for cardioversion for A-fib:] Positive well nourished and well developed; Negative for cachectic, contracturesor unkempt General Appearance ED: well developed and NAD; Negative for unkempt, cachectic, contractures or pallor Nutritional Appearance: Negative for cachectic HEENT Reports moist mucous membranes normocephalic and atraumatic; Negative for trauma or tenderness Eyes PERRL and EOMs intact bilaterally General Eye ED: Negative for pale conjunctiva Neck no lymphadenopathy, supple and no JVD Chest Wall inspection of chest normal and palpation of chest normal Resp normal respiratory effort and clear to auscultation bilaterally Auscultation: Negative for rales, rhonchi, wheezes or diminished lung sounds Cardio Negative for regular rate or regular rhythm Rate: tachycardic and other Other Details: A-fib RVR. GI normal to inspection, nondistended, normoactive bowel sounds, soft to palpation,non-tender, non-distended and no masses Back/Spine no CVA tenderness and no thoracic nor lumbar tenderness Extremity normal to inspection General Extremety ED: Negative for edema or tenderness General Extremity: Negative for edema Neuro oriented x3 and CN's II-XII intact bilaterally Sensorium / Orientation: awake, alert, oriented to person, oriented to place andoriented to time; Negative for confused Motor Exam: strength 5/5 throughout Psych mental status grossly normal Appearance: Negative for unkempt Skin no rashes or lesions noted and no wounds General Skin Exam: Negative for jaundice or pallor Rashes: No rashes noted Trauma: Negative for abrasion MDM MDM MDM Narrative Medical decision making narrative: 70-year-old male history of A-fib on Eliquis show recurrent A-fib today. Initial rate was around 78 but he has been as high as 120. Cardiac workup withIV Cardizem. Repeat exam at 5:24 PM patient doing well. Heart rates in the 80s he remains Justo-fib with PVCs. Apparel Manager wanted us to cardiovert him. We are getting propofol and get him set up for cardioversion and procedural sedation. We decided to use etomidate. He was given a total of 10 mg. 1 shock cardioversion at 300 J. He immediately converted to a sinus rhythm. OccasionalPVCs. After 10+ minutes he woke up from procedural sedation and currently is doing well at 6:56 PM. Will follow procedural sedation protocol to be discharged home with family. Lab Data Attestation: I reviewed the patient's lab results. Lab results narrative: CBC shows a white count of 9. H&H 16 and 47. Platelets 148. Electrolytes show sodium 134. Gap 11. Normal BUN of 14 creatinine 1. Glucose 101. Troponin 23. Labs: Laboratory Results - last 24 hr 07/18/25 15:55 WBC 9.0 RBC 5.01 Hgb 16.2 Hct 47.0 MCV 93.8 MCH 32.3 H MCHC 34.5 RDW Std Deviation 48.9 H RDW Coeff of Hair 14.2 Plt Count 148 L MPV 9.0 Immature Gran % (Auto) 0.200 Neut % (Auto) 50.9 Lymph % (Auto) 38.1 [place] % (Auto) 9.6 Eos % (Auto) 1.0 Baso % (Auto) 0.2 Absolute Neuts (auto) 4.6 Absolute Lymphs (auto) 3.41 Nucleated RBC % 0 Sodium 134 Potassium 4.2 Chloride 97 L Carbon Dioxide 26.5 Anion Gap 11 BUN 14 Creatinine 1.06 Estim Creat Clear Calc 72.94 Est GFR (MDRD) Non-Af 75 BUN/Creatinine Ratio 13.2 Glucose 101 H Calcium 8.6 Troponin T High Sens 23 H D Radiography Chest X-Ray - ED: 1 View, Read by ED Physician, Normal, Lungs, Mediastinum, BonyStructures, No Acute Disease, Chronic Changes and Cardiomegaly Diagnostic Testing: Clinical Impression(s) from Imaging Studies Chest X-Ray 07/18/25 15:55 IMPRESSION: Cardiomegaly. No acute pulmonary disease. Reading Location: [facility] Chest x-ray, single view, portable, interpreted both by the radiologist and myself shows borderline cardiomegaly. Chronic changes no acute process. Normallung chacon with chronic changes. Rhythm Strip Rhythm Strip: A-fib Rate: 120 Ectopy: PVC(s) EKG Initial EKG: Attestation: I personally reviewed and interpreted this EKG as follows: Interpretation: No Acute Injury Pattern and Atrial Fibrillation Comments: A-fib rate 120 no PVCs. No acute signs of LA or ischemia. Procedures Procedural Sedation Procedural sedation for cardioversion for A-fib:: Consent Signed: Yes Any Problems With Anesthesia: No You/Your family experience fever (hyperthermia) w/anesthesia: No Sedation medication: Etomidate Dose: 10 Route: IV Total Moderate Sedation Units: 15 Maliampati Score: Class II (Patient was in a stab pressure was borderline 90-100. So we will choose to use etomidate instead of propofol. He was given 5cc of the etomidate. Once procedural sedation was obtained he was short cardioverted once using 300 J. Immediately went to a sinus rhythm with occasional PVCs. Blood pres) ASA Classification: II Critical Care Time Critical Care Time: Yes Critical care time (excluding procedures): 30-74 minutes, Including time spent:,Discussing w/Patient &/or Family/Supervisor Trust Accounts, Discussing w/Consultants, Performing Direct Patient Care at Bedside and - (35 minutes) Discharge Plan Triage Chief Complaint: Palpitations ED Provider: Isaias Rocha Dx/Rx/DC Orders Clinical Impression: Atrial fibrillation with RVR, Chronic anticoagulation, History of COPD, Historyof cardioversion Instructions: ED AFIB Prescriptions: No Action Eliquis 5 mg tablet 5 mg PO BID Qty: 60 11RF Jardiance 10 mg tablet 10 mg PO DAILY Qty: 30 11RF spironolactone 25 mg tablet 25 mg PO DAILY Qty: 30 11RF Rx Instructions: Hold for serum potassium more than 5.0 metoprolol tartrate 50 mg tablet 50 mg PO BID Qty: 60 11RF lisinopril 5 mg tablet 5 mg PO QDAY Qty: 30 11RF furosemide 40 mg tablet 40 mg PO DAILY Qty: 90 3RF Primary Care Provider: Lee Mathews Referrals: Lee Mathews MD [Primary Care Provider] - As Needed Activity Restrictions/Additional Instructions: Continue your current medications. No driving for the next 36 hours. Be very careful on steps. Have assistance. Due to the anesthesia we gave you today. Follow-up with your receiver bulk system next week. Return if feeling worse. Print Language: French Disposition Disposition: Home, Self Care What to do if you have Problems For any increased pain, shortness of breath, bleeding, nausea or vomiting, chestpain, or any unexpected problems, contact your Primary Care Provider. Call Seen Registry ([phone]) or report to the closest Emergency Room. Call 911 if necessary. 07/18/25 1856 <Electronically signed by Isaias Rocha MD> Cosigner Signature (if applicable): CC: Dr. Lee Mathews MD ~ Signed ADDENDUM by Dr. Isaias Rocha MD on 07/18/25 at 1857 Post cardioversion his EKG shows a sinus rhythm rate of 60 with occasional PVCs. No LA or ischemia. Currently not in A-fib. 07/18/257<Electronically signed by Isaias Rocha MD> Cosigner Signature (if applicable): cc: Dr. Lee Mathews MD ~* Signed [facility] Work Phone: 1(513) 536-925206-16-2025 Procedure note [facility] Medical Records Department [address] [place] [address] Procedure Report 05/05/25 1259 MR#: [id number] Acct: [id number] Name: KELVIN LEE Jr. Rep #:[id number] : 1955 69 From: Nigel Read DO PCP: Dr. Lee Mathews MD Status :[facility] [place]: [facility] Procedures Pulmonary Pulmonary Procedures /Diagnostic Testin Con Sedation Non-invasive Procedural Procedure Information Date of Procedure: 05/05/25 Description of procedure: CONSCIOUS SEDATION REPORT DATE OF SERVICE: May 05, 2025 BRIEF HISTORY OF PRESENT ILLNESS: The patient is a 69-year-old male who presented to [facility] an electiveoutpatient cardioversion due to underlying atrial fibrillation. The patient is systemically anticoagulated on Eliquis. His last surface echocardiogram demonstrated an ejection fraction of approximately 15%. The patient denied any prior anesthetic complications. He does report a historyof COPD, but denies ever having been diagnosed with YONY. PHYSICAL EXAMINATION: VITAL SIGNS: Reviewed and were acceptable. GENERAL: The patient is a male, in no apparent distress, speaking in full sentences. HEENT: Normocephalic, atraumatic. Joey membranes are moist and pink. Good mouth opening noted. Trachea is midline. CHEST: S1, S2 irregularly irregular. No murmurs, rubs or gallops were noted. LUNGS: Clear to auscultation bilaterally without appreciable wheezes, rales or rhonchi. ABDOMEN: Soft, nontender, nondistended. Positive bowel sounds. EXTREMITIES: There is no clubbing, cyanosis or edema. Exfoliative dermatitis ontrunk and extremities. ASA Class: II DESCRIPTION OF PROCEDURE: After confirmation of informed consent, the patient's anesthesia plan was reviewed in detail. Propofol was chosen. Risks and benefits were reviewed and the patient agreed to proceed. At 1231, the patient was given 6 mg of etomidate. The patient achieved an appropriate level of sedation and was given a 300 joule synchronized cardioversion by Dr. Keyes at the bedside. This was successful in achieving normal sinus rhythm. The patient was monitored until 1245, at which time he reached his baseline mental status and function. The patient tolerated the procedure well. COMPLICATIONS: None ESTIMATED BLOOD LOSS: None RECOMMENDATIONS: Okay to recover in usual fashion. 05/05/25 1301 Cosigner Signature (if applicable): CC: Dr. Lee Mathews MD; Dr. Carlton Keyes MD; Dr. Nigel Read DO~ Signed [facility]06-16-2025 Procedure note [facility] Medical Records Department [address] [place] [address] Procedure Report 05/05/25 1250 MR#: [id number] Acct: [id number] Name: KELVIN LEE Jr. Rep #:[id number] : 1955 69 From: Carlton Keyes MD PCP: Dr. Lee Mathews MD Status :[facility] Location: [facility] Non-invasive Procedural Procedure Information Date of Procedure: 05/05/25 Pre-Procedure Diagnosis: Atrial Fibrillation Post-Procedure Diagnosis: same Procedure Performed:: DC cardioversion Procedure Time Out: 11:30 Procedure Start Time: 12:30 Procedure Stop Time: 12:35 Description of procedure: DC cardioversion The patient was brought to the cardiac catheterization lab in the postabsorptivenonsedated state. Informed consent was obtained. The patient was seen by Dr. Read of the critical care division. Anterior-posterior pads were applied. Thepatient was administered 6 mg of intravenous etomidate and then 300 J of synchronized DC cardioversion energy biphasic were applied with prompt reversal to sinus rhythm. Procedure findings: Successful cardioversion from atrial fibrillation to sinus rhythm. Follow-up as per office visit. 05/05/25 1253 Cosigner Signature (if applicable): CC: Dr. Lee Mathews MD; Dr. Carlton Keyes MD~ Signed [facility]06-15-2025 History and physical note Author Carlton Keyes [facility] Note Date/Time May 04, 2025 6:36 pm [facility] Medical Records Department [address] [address] History & Physical Exam 05/01/25 1259 MR#: [id number] Acct: [id number] Name: KELVIN LEE Jr. Rep #:[id number] : 1955 69 From: Carlton Keyes MD PCP: Dr. Lee Mathews MD [place] :[place] [facility] [place] [facility] History and Physical Date of Admission: 05/05/25 This is a 69-year-old male, who presents today for a cardioversion. Patient presented to the emergency room on [...] He underwent a cardiac catheterization on 03/24/2025 whichdemonstrated normal coronary arteries. He was started on guideline directed medical therapy, and discharged home to follow-up with cardiology. From a cardiac standpoint, the patient is doing well. He denies any palpitations, chest pain, pressure or heaviness. He does have occasional SOB with exertion, and stress. He does acknowledge orthopnea. He denies PND. He doesnot have bleeding issues; no blood in urine, stool, or nosebleeds. He does acknowledge a decrease in energy level. He denies myalgias, or claudication. He does acknowledge bilateral lower extremity edema, and weight gain. He denies lightheadedness, dizziness, syncopal or near syncopal episodes, and headaches. Intake Vital Signs See EMR Allergies See EMR Medications See EMR [facility] Medical History PAF (paroxysmal atrial fibrillation) CKD (chronic kidney disease), stage II Thrombocytopenia COPD (chronic obstructive pulmonary disease) Morbid obesity HLD (hyperlipidemia) HTN (hypertension) Tobacco use Anxiety and depression Cancer Surgical History History of appendectomy Family History History of blood clots Lupus Bowel disease Colon cancer Skin cancer CVA (cerebral vascular accident)Mother Hypertension Social History household members: spouse Smoking [...] aches with walking: None Resp Respiratory: Positive for SOB with activity and SOB at rest; Negative for SOB orthopneaundefinedSOB lying down GI GI: Negative nausea, vomiting, heartburn, bright, red blood in stools or black,tarry stools : Negative for hematuria Neuro Neuro: Positive for weakness; Negative for dizziness, lightheadedness, near syncope, syncope, frequent falls, headache(s) or blurry vision Endo Endo: Positive for fatigue Cardiology Exam Const Appearance: cooperative and no acute distress Nutritional Appearance: obese Orientation: alert and oriented x3 Head Head: normal to inspection Ears: hearing grossly normal bilaterally Nose: external nose normal Face and Sinus: face symmetric Eyes General: appearance normal, both eyes and all related structures Eyelids: eyelids normal Conjunctivae: conjunctivae normal Pupils: PERRL and pupil size EOM: EOM intact bilaterally Neck Neck: normal visual inspection Carotids: Negative bruit Chest Chest inspection: normal inspection of the chest and normal respiratory effort Auscultation: Bilateral: Diminished Lung Sounds Cardio Palpation: normal PMI Rhythm: irregularly irregular Heart sounds: S1 normal and S2 normal; Negative rub, gallop or murmur GI GI: normal to inspection, soft and obese; Negative no hepatosplenomegaly Neuro General: patient alert and patient oriented x3 Skin Skin: no rashes or lesions noted Extremities Pulses: Normal: Right Posterior Tibial Pulse, Left Posterior Tibial Pulse, RightRadial Pulse and Left Radial Pulse Lower Extremity Edema: +1: Bilateral Psych Psychological: normal affect Supplemental Info Supplemental Information Echocardiogram 03/21/2025: Interpretation Summary The estimated ejection fraction is 10-15 %. Moderate concentric left ventricular hypertrophy. Moderate global right ventricular systolic dysfunction. Moderately dilated right ventricle. The left atrium is mildly enlarged. The right atrium is mildly enlarged. Mild (1+) mitral valve insufficiency. Mild (1+) eccentric tricuspid valve insufficiency. Cardiac catheterization 03/24/2025: CONCLUSIONS Normal coronary arteries Cardiomyopathy: Dilated RECOMMENDATIONS Medical therapy Assessment and Plan Assessment and Plan (1) Atrial fibrillation with RVR: Status: Acute Plan: Patient has a history of atrial fibrillation. This is newer. His EKG demonstrated atrial fibrillation, frequent PVCs, heart rate 84 bpm. His echocardiogram from 03/21/2025 demonstrated ejection fraction of 10 to 15%, and mildly enlarged left and right atrium. This was reviewed with patient. Did discuss with Dr. Keyes, and would like to proceed with cardioversion. Cardioversion instructions were reviewed with patient, he verbalizes understanding. He was instructed to not miss any doses of Eliquis. He will continue Eliquis 5 mg twice daily, digoxin 125 mcg daily, and metoprolol tartrate 100 mg twice daily. He will continue to monitor for any concerning symptoms of atrial fibrillation. 05/04/25 1836 <Electronically signed by Carlton Keyes MD> Cosigner Signature (if applicable): 05/01/25 1302 <Electronically signed by Ariane MARTIN> CC: VERONICA Perez; Dr. Lee Mathews MD; Dr. Carlton Keyes MD~ Signed [facility] Work Phone: [phone] 217-472406-15-2025 History and physical note [facility] Medical Records Department [address] [place] [address] History & Physical Exam 05/01/25 1259 MR#: [id number] Acct: [id number] Name: KELVIN LEE Jr. Rep #:[id number] : 1955 69 From: Carlton Keyes MD PCP: Dr. Lee Mathews MD [place] [facility] [place] [facility] History and Physical Date of Admission: 05/05/25 This is a 69-year-old male, who presents today for a cardioversion. Patient presented to the emergency room on 03/20/2025 with complaints of shortness of breath, bilateral leg swelling. His BNP was elevated at 8957. His EKG demonstrated A-fib with RVR. He was admitted for further evaluation. He did un dergo an echocardiogram on 03/21/2025 which demonstrated a decreased ejection fraction of 10 to 15%, moderately dilated right ventricle, and mildly enlarged left and right atrium. He underwent a cardiac catheterization on 03/24/2025 whichdemonstrated normal coronary arteries. He was started on guideline directed medical therapy, and discharged home to follow-up with cardiology. From a cardiac standpoint, the patient is doing well. He denies any palpitations, chest pain, pressure or heaviness. He does have occasional SOB with exertion, and stress. He does acknowledge orthopnea. He denies PND. He doesnot have bleeding issues; no blood in urine, stool, or nosebleeds. He does acknowledge a decrease in energy level. He denies myalgias, or claudication. He does acknowledge bilateral lower extremity edema, and weight gain. He denies lightheadedness, dizziness, syncopal or near syncopal episodes, and headaches. Intake Vital Signs See EMR Allergies See EMR Medications See EMR PFS Medical History PAF (paroxysmal atrial fibrillation) CKD (chronic kidney disease), stage II Thrombocytopenia COPD (chronic obstructive pulmonary disease) Morbid obesity HLD (hyperlipidemia) HTN (hypertension) Tobacco use Anxiety and depression Cancer Surgical History History of appendectomy Family History History of blood clots Lupus Bowel disease Colon cancer Skin cancer CVA (cerebral vascular accident)Mother Hypertension Social History household members: spouse Smoking [...] aches with walking: None Resp Respiratory: Positive for SOB with activity and SOB at rest; Negative for SOB orthopneaundefinedSOB lying down GI GI: Negative nausea, vomiting, heartburn, bright, red blood in stools or black,tarry stools : Negative for hematuria Neuro Neuro: Positive for weakness; Negative for dizziness, lightheadedness, near syncope, syncope, frequent falls, headache(s) or blurry vision Endo Endo: Positive for fatigue Cardiology Exam Const Appearance: cooperative and no acute distress Nutritional Appearance: obese Orientation: alert and oriented x3 Head Head: normal to inspection Ears: hearing grossly normal bilaterally Nose: external nose normal Face and Sinus: face symmetric Eyes General: appearance normal, both eyes and all related structures Eyelids: eyelids normal Conjunctivae: conjunctivae normal Pupils: PERRL and pupil size EOM: EOM intact bilaterally Neck Neck: normal visual inspection Carotids: Negative bruit Chest Chest inspection: normal inspection of the chest and normal respiratory effort Auscultation: Bilateral: Diminished Lung Sounds Cardio Palpation: normal PMI Rhythm: irregularly irregular Heart sounds: S1 normal and S2 normal; Negative rub, gallop or murmur GI GI: normal to inspection, soft and obese; Negative no hepatosplenomegaly Neuro General: patient alert and patient oriented x3 Skin Skin: no rashes or lesions noted Extremities Pulses: Normal: Right Posterior Tibial Pulse, Left Posterior Tibial Pulse, RightRadial Pulse and Left Radial Pulse Lower Extremity Edema: +1: Bilateral Psych Psychological: normal affect Supplemental Info Supplemental Information Echocardiogram 03/21/2025: Interpretation Summary The estimated ejection fraction is 10-15 %. Moderate concentric left ventricular hypertrophy. Moderate global right ventricular systolic dysfunction. Moderately dilated right ventricle. The left atrium is mildly enlarged. The right atrium is mildly enlarged. Mild (1+) mitral valve insufficiency. Mild (1+) eccentric tricuspid valve insufficiency. Cardiac catheterization 03/24/2025: CONCLUSIONS Normal coronary arteries Cardiomyopathy: Dilated RECOMMENDATIONS Medical therapy Assessment and Plan Assessment and Plan (1) Atrial fibrillation with RVR: Status: Acute Plan: Patient has a history of atrial fibrillation. This is newer. His EKG demonstrated atrial fibrillation, frequent PVCs, heart rate 84 bpm. His echocardiogram from 03/21/2025 demonstrated ejection fraction of 10 to 15%, and mildly enlarged left and right atrium. This was reviewed with patient. Did discuss with Dr. Keyes, and would like to proceed with cardioversion. Cardioversion instructions were reviewed with patient, he verbalizes understanding. He was instructed to not miss any doses of Eliquis.He will continue Eliquis 5 mg twice daily, digoxin 125 mcg daily, and metoprolol tartrate 100 mg twice daily. He will continue to monitor for any concerning symptoms of atrial fibrillation. 05/04/25 1836 Cosigner Signature (if applicable): 05/01/25 1302 CC: VERONICA Perez; Dr. Lee Mathews MD; Dr. Carlton Keyes MD~ Signed [facility]06-12-2025 [facility] Medical Records Department [address] [place] [address] History Physical Exam 05/01/25 1259 MR#: [id number] Acct: [id number] Name: MARY,KELVIN Rep #: [id number] : 1955 69 From: Carlton Keyes MD PCP: Dr. Lee Mathews MD [place] [facility] [place] [facility] History and Physical Date of Admission: 05/05/25 This is a 69-year-old male, who presents today for a cardioversion. Patient presented to the emergency room on [...] syncopal or near syncopal episodes, and headaches. Intake Vital Signs See EMR Allergies See EMR Medications See EMR [facility] Medical History PAF (paroxysmal atrial fibrillation) CKD (chronic kidney disease), stage II Thrombocytopenia COPD (chronic obstructive pulmonary disease) Morbid obesity HLD (hyperlipidemia) HTN (hypertension) Tobacco use Anxiety and depression Cancer Surgical History History of appendectomy Family History History of blood clots Lupus Bowel disease Colon cancer Skin cancer CVA (cerebral vascular accident)Mother Hypertension Social History household members: spouse Smoking [...] aches with walking: None Resp Respiratory: Positive for SOB with activity and SOB at rest; Negative for SOB orthopnea SOB lying down GI GI: Negative nausea, vomiting, heartburn, bright, red blood in stools or black,tarry stools : Negative for hematuria Neuro Neuro: Positive for weakness; Negative for dizziness, lightheadedness, near syncope, syncope, frequent falls, headache(s) or blurry vision Endo Endo: Positive for fatigue Cardiology Exam Const Appearance: cooperative and no acute distress Nutritional Appearance: obese Orientation: alert and oriented x3 Head Head: normal to inspection Ears: hearing grossly normal bilaterally Nose: external nose normal Face and Sinus: face symmetric Eyes General: appearance normal, both eyes and all related structures Eyelids: eyelids normal Conjunctivae: conjunctivae normal Pupils: PERRL and pupil size EOM: EOM intact bilaterally Neck Neck: normal visual inspection Carotids: Negative bruit Chest Chest inspection: normal inspection of the chest and normal respiratory effort Auscultation: Bilateral: Diminished Lung Sounds Cardio Palpation: normal PMI Rhythm: irregularly irregular Heart sounds: S1 normal and S2 normal; Negative rub, gallop or murmur GI GI: normal to inspection, soft and obese; Negative no hepatosplenomegaly Neuro General: patient alert and patient oriented x3 Skin Skin: no rashes or lesions noted Extremities Pulses: Normal: Right Posterior Tibial Pulse, Left Posterior Tibial Pulse, Right Radial Pulse and Left Radial Pulse Lower Extremity Edema: +1: Bilateral Psych Psychological: normal affect Supplemental Info Supplemental Information Echocardiogram 03/21/2025: Interpretation Summary The estimated ejection fraction is 10-15 %. Moderate concentric left ventricular hypertrophy. Moderate global right ventricular systolic dysfunction. Moderately dilated right ventricle. The left atrium is mildly enlarged. The right atrium is mildly enlarged. Mild (1+) mitral valve insufficiency. Mild (1+) eccentric tricuspid valve insufficiency. Cardiac catheterization 03/24/2025: CONCLUSIONS Normal coronary arteries Cardiomyopathy: Dilated R (more content not included)...[facility]05-08-2025 Discharge summary Author Derrick Chacon [facility] Note Date/Time March 27, 2025 12:45p nilsa [facility] Medical Records Department [address] [place] [address] Discharge Summary 03/27/25 1113 MR#: [id number] Acct: [id number] Name: KELVIN LEE Jr. Rep #:[id number] : 1955 69 From: Derrick MCCLENDON: Dr. Lee Mathews MD Status :ADM IN Location: [facility] [id number] Providers Date of Admission: 03/20/25 Date [...] reported normal coronaries. Dilated cardiomyopathy. Seen by receiver bulk system recommend continue IV furosemide. Spironolactone added. SGLT2 [...] Consulting Providers: Sophia Lowe; Krissy Freitas; Stanley rCaig Discharge Orders/Prescriptions Prescriptions: New furosemide 40 mg [...] Self Care Charges/Coding Visit Charges Inpatient E&M: 21752 Disch Hosp >30min 03/27/25 1245 <Electronically signed by Derrick Chacon MD> Cosigner Signature (if applicable): CC: Dr. Lee Mathews MD; Dr. Derrick Chacon MD~ Signed [facility] Work Phone: 1(403) 814-158605-08-2025 Discharge summary [facility] Medical Records Department [address] [place] [address] Discharge Summary 03/27/25 1113 MR#: [id number] Acct: [id number] Name: KELVIN LEE Jr. Rep #:[id number] : 1955 69 From: Derrick Henry PCP: Dr. Lee Mathews MD Status :[facility]M [facility] Prov[facility] Date of Admission: 03/20/25 Date [...] Self Care Charges/Coding Visit Charges Inpatient E&M: 14279 Disch Hosp >30min 03/27/25 1245 Cosigner Signature (if applicable): CC: Dr. Lee Mathews MD; Dr. Derrick Chacon MD~ Signed [facility]05-08-2025 Discharge summary [facility] Medical Records Department [address] [place] [address] Instructions for Home/Discharge Instructions 03/27/25 1012 MR#: [id number] Acct: [id number] Name: KELVIN LEE Jr. Rep #:[id number] : 1955 69 From: Derrick Henry PCP: [...] MD; Dr. Krissy Freitas MD ~ Signed [facility]05-08-2025 Discharge summary Author Derrick Chacon [facility] Note Date/Time March 27, 2025 12:41p [facility] Medical Records Department [address] [place] [address] Instructions for Home/Discharge Instructions 03/27/25 1012 MR#: [id number] Acct: [id number] Name: KELVIN LEE JrSavita Rep #:[id number] : 1955 69 From: Derrick Henry PCP: [...] MD; Dr. Krissy Freitas MD ~ Signed [facility] Work Phone: 1([phone]) 704-766005-08-2025 Progress note Author Madhu Bautista [facility] Note Date/Time March 27, 2025 9:34am [facility] Medical Records Department [address] [place] [address] Progress Note - Cardiology 03/27/2559 MR#: [id number] Acct: [id number] Name: KELVIN LEE JrSavita Rep #:[id number] : 1955 69 From: Madhu Bautista MD PCP: Dr. Lee Mathews MD Status :ADM IN Location: [place] [address] Subjective Subjective Patient resting comfortably seated in [...] hr 03/26/25 05:41: [place] [address] H 03/27/25 05:23: Sodium 141, Potassium 3.9, [...] daily. The patient will follow-up in the [facility] office with a basic metabolic panel and [...] 3. Patient to be evaluated in the [facility] office in 1 week by her advanced practitioner. Charges/Coding Visit Charges Inpatient E&M: 78378 Subs Hosp L3 03/27/25 0934 <Electronically signed by Madhu Bautista MD> Joseluisigner Signature (if applicable): CC: ~ Signed [facility] Work Phone: 1([phone]) 166-554505-08-2025 [facility] Medical Records Department [address] [place] [address] Discharge Summary 03/27/25 1113 MR#: [id number] Acct: [id number] Name: KELVIN LEE Jr. Rep #: [id number] : 1955 69 From: Derrick Chacon MD PCP: Dr. Lee Mathews MD Status:ADM IN Location: [facility] [id number] Providers Date of Admission: 03/20/25 Date of Discharge: 03/27/25 Primary Care Physician: Dr. Lee Mathews MD Consultations 03/21/25 10:25 Consult: Cardiology Routine Consulting Provider: Krissy Freitas Reason for Consult: chf EMERGENT Consult: No Notified: Yes Date Notified: 03/21/25 Time Notified: [...] reported normal coronaries. Dilated cardiomyopathy. Seen by receiver bulk system recommend continue IV furosemide. Spironolactone added. SGLT2 [...] Suspected to be sec (more content not included)...[facility] 03-27-2025 Progress note [facility] Medical Records Department [address] [place] [address] Progress Note - Cardiology 03/27/25 0859 MR#: [id number] Acct: [id number] Name: KELVIN LEE Rep #:[id number] : 1955 69 From: Madhu Bautista MD PCP: Dr. Lee Mathews MD Status :[facility] Subjective Subjective Patient resting comfortably seated in [...] hr 03/26/25 05:41: [place] [address] H 03/27/25 05:23: Sodium 141, Potassium 3.9, [...] daily. The patient will follow-up in the [facility] office with a basic metabolic panel and [...] 3. Patient to be evaluated in the [facility] office in 1 week by her advanced practitioner. Charges/Coding Visit Charges Inpatient E&M: 47788 [facility] Hosp 03/27/25 0934 Cosigner Signature (if applicable): CC: ~ Signed [facility]05-07-2025 Progress note Author Derrick Chacon [facility] Note Date/Time March 26, 2025 5:19pm [facility] Medical Records Department [address] [place] [address] Progress Note - Hospitalist 03/26/25 1716 MR#: [id number] Acct: [id number] Name: KELVIN LEE Jr. Rep #:[id number] : 1955 69 From: Derrick Henry PCP: Dr. Lee Mathews MD Status :ADM IN Location: [place] [address] Reason for Visit Reason for Visit: Diagnoses [...] 23:59 23:59 Intake Total 968.75 / 968.75 1241. / 1241.25 960 / 960 Output Total [...] 8.1, Magnesium 2.2, [place] [address] H Rhythm Strip Rhythm Strip: A-fib Rate: [...] reported normal coronaries. Dilated cardiomyopathy. Seen by receiver bulk system recommend continue IV furosemide. Spironolactone added. SGLT2 [...] systemic anticoagulation Charges/Coding Visit Charges Inpatient E&M: 87388 Subs Hosp L2 03/26/25 1719 <Electronically signed by Derrick Chacon MD> Cosigner Signature (if applicable): CC: ~ Signed [facility] Work Phone: [phone]) 817-248805-07-2025 Progress note [facility] Medical Records Department [address] [place] [address] Progress Note - Hospitalist 03/26/25 1716 MR#: [id number] Acct: [id number] Name: KELVIN LEE Jr. Rep #:[id number] : 1955 69 From: Derrick Henry PCP: Dr. Lee Mathesw MD Status :[facility] Reason for Visit Reason for [...] 8.1, Magnesium 2.2, [place] [address] H Rhythm Strip Rhythm Strip: A-fib Rate: [...] systemic anticoagulation Charges/Coding Visit Charges Inpatient E&M: 03270 Subs Hosp L2 03/26/25 1719 Cosigner Signature (if applicable): CC: ~ Signed [facility]05-07-2025 Progress note Author Madhu Bautista [facility] Note Date/Time March 26, 2025 9:35am [facility] Medical Records Department [address] [place] [address] Progress Note - Cardiology 03/26/25924 MR#: [id number] Acct: [id number] Name: KELVIN LEE Jr. Rep #:[id number] : 1955 69 From: Madhu Bautista MD PCP: Dr. Lee Mathews MD Status :ADM IN Location: [place] [address] Subjective Subjective Patient sleeping in the bedside [...] be reevaluated in our office at the [facility] 1 week after discharge with an [...] hours. 4. After discharge follow-up in the [facility] office in 1 week for ECG and further treatment options as noted in #2 above. Charges/Coding Visit Charges Inpatient E&M: 84398 Subs Hosp L3 03/26/25934 <Electronically signed by Madhu Bautista MD> Cosigner Signature (if applicable): CC: ~ Signed [facility] Work Phone: [phone]) 618-948805-07-2025 Progress note [facility] Medical Records Department [address] [place] [address] Progress Note - Cardiology 03/26/25924 MR#: [id number] Acct: [id number] Name: KELVIN LEE Jr. Rep #:[id number] : 1955 69 From: Madhu Bautista MD PCP: Dr. Lee Mathews MD Status :ADM IN Location: [place] [address] Subjective Subjective Patient sleeping in the bedside [...] be reevaluated in our office at the [facility] 1 week after discharge with an [...] hours. 4. After discharge follow-up in the [facility] office in 1 week for ECG and further treatment options as noted in #2 above. Charges/Coding Visit Charges Inpatient E&M: 24095 Subs Hosp L3 03/26/25 0935 Cosigner Signature (if applicable): CC: ~ Signed [facility]05-06-2025 Progress note Author Derrick Chacon [facility] Note Date/Time March 25, 2025 4:30pm [facility] Medical Records Department [address] [place] [address] Progress Note - Hospitalist 03/25/25 1626 MR#: [id number] Acct: [id number] Name: KELVIN LEE JrSavita Rep #:[id number] : 1955 69 From: Derrick Henry PCP: Dr. Lee Mathews MD Status :ADM IN Location: [place] [address]- 1 Reason for Visit Reason for Visit: [...] reported normal coronaries. Dilated cardiomyopathy. Seen by receiver bulk system recommend continue IV furosemide. Spironolactone added. SGLT2 [...] systemic anticoagulation Charges/Coding Visit Charges Inpatient E&M: 28215 Subs Hosp L2 03/25/25 1630 <Electronically signed by Derrick Chacon MD> Cosigner Signature (if applicable): CC: ~ Signed [facility] Work Phone: 1(261) 199-162605-06-2025 Progress note [facility] Medical Records Department [address] [place] [address] Progress Note - Hospitalist 03/25/25 1626 MR#: [id number] Acct: [id number] Name: KELVIN LEE Jr. Rep #:[id number] : 1955 69 From: Derrick Henyr PCP: Dr. Lee Mathews MD Status :ADM IN Location: [place] [id number]- Reason for Visit Reason for Visit: Diagnoses [...] systemic anticoagulation Charges/Coding Visit Charges Inpatient E&M: 13423 Subs Hosp L2 03/25/25 1630 Cosigner Signature (if applicable): CC: ~ Signed [facility]05-06-2025 Progress note Author Madhu Bautista [facility] Note Date/Time March 25, 2025 9:54am [facility] Medical Records Department [address] [place] [address] Progress Note - Cardiology 03/25/25 0822 MR#: [id number] Acct: [id number] Name: KELVIN LEE JrSavita Rep #:[id number] : 1955 69 From: Madhu Bautista MD PCP: Dr. Lee Mathews MD Status :ADM IN Location: [place] [address] Subjective Subjective Patient seen at the bedside [...] in the next 24 hours. 03/25/25 0954 <Electronically signed by Madhu Bautista MD> Cosigner Signature (if applicable): CC: ~ Signed [facility] Work Phone: 1(106) 149-324805-06-2025 Progress note [facility] Medical Records Department [address] [place] [address] Progress Note - Cardiology 03/25/25821 MR#: [id number] Acct: [id number] Name: KELVIN LEE Jr. Rep #:[id number] : 1955 69 From: Madhu Bautista MD PCP: Dr. Lee Mathews MD Status :ADM IN Location: [place] [id number]- [id number] Subjective Subjective Patient seen at the [...] Cosigner Signature (if applicable): CC: ~ Signed [facility]05-05-2025 Progress note Author Derrick Chacon [facility] Note Date/Time March 24, 2025 4:44pm [facility] Medical Records Department [address] [place] [address] Progress Note - Hospitalist 03/24/25 1424 MR#: [id number] Acct: [id number] Name: KELVIN LEE JrSavita Rep #:[id number] : 1955 69 From: Derrick Henry PCP: Dr. Lee Mathews MD Status :ADM IN Location: [place] [id number]- 1 Reason for Visit Reason for Visit: [...] % (Auto) 56.7, Lymph % (Auto) 31.6, [place] % (Auto) 10.2 H, Eos % (Auto) [...] reported normal coronaries. Dilated cardiomyopathy. Seen by receiver bulk system recommend continue IV furosemide and then switch [...] systemic anticoagulation Charges/Coding Visit Charges Inpatient E&M: 56217 Subs Hosp L2 03/24/25 1644 <Electronically signed by Derrick Chacon MD> Cosigner Signature (if applicable): CC: ~ Signed [facility] Work Phone: 1(572) 383-599905-05-2025 Progress note [facility] Medical Records Department [address] [place] [address] Progress Note - Hospitalist 03/24/25 1424 MR#: [id number] Acct: [id number] Name: KELVIN LEE JrSavita Rep #:[id number] : 1955 69 From: Derrick Henry PCP: Dr. Lee Mathews MD Status :ADM IN Location: [place] [address] Reason for Visit Reason for Visit: Diagnoses [...] Neut %(Auto) 56.7, Lymph % (Auto) 31.6, [place] % (Auto) 10.2 H, Eos % (Auto) [...] systemic anticoagulation Charges/Coding Visit Charges Inpatient E&M: 23616 Subs Hosp L2 03/24/25 1644 Cosigner Signature (if applicable): CC: ~ Signed [facility]05-05-2025 Progress note Author Carlton Keyes [facility] Note Date/Time March 24, 2025 10:56a m [facility] Medical Records Department [address] [address] Progress Note - Cardiology 03/24/25 1051 MR#: [id number] Acct: [id number] Name: KELVIN LEE Jr. Rep #:[id number] : 1955 69 From: Carlton Keyes MD PCP: Dr. Lee Mathews MD Status :ADM IN Location: [place] [id number]- 1 Subjective Subjective Patient seen and evaluated, and [...] % (Auto) 56.7, Lymph % (Auto) 31.6, [place] % (Auto) 10.2 H, Eos % (Auto) [...] % (Auto) 56.7, Lymph % (Auto) 31.6, [place] % (Auto) 10.2 H, Eos % (Auto) 0.7, Baso % (Auto)0.4, Absolute Neuts (auto) 4.2, Nucleated RBC % 0, APTT 87.8 H, Sodium 138, Potassium 3.7, Chloride 97 L, Carbon Dioxide 29.1, Anion Gap 12, BUN 26 H, Creatinine 1.26 H, Est GFR (MDRD) Non-Af 61, BUN/Creatinine Ratio 20.5 H, Qufymgy608 H, Calcium 8.2, Phosphorus 4.4, Magnesium 2.1, [...] Cosigner Signature (if applicable): CC: ~ Signed [facility] Work Phone: 1(884) 248-135005-05-2025 Progress note [facility] Medical Records Department [address] [place] [address] Progress Note - Cardiology 03/24/25 1051 MR#: [id number] Acct: [id number] Name: KELVIN LEE JrSavita Rep #:[id number] : 1955 69 From: Carlton Keyes MD PCP: Dr. Lee Mathews MD Status :ADM IN Location: [place] [address] Subjective Subjective Patient seen and evaluated, and [...] Neut %(Auto) 56.7, Lymph % (Auto) 31.6, [place] % (Auto) 10.2 H, Eos % (Auto) [...] % (Auto) 56.7, Lymph % (Auto) 31.6, [place] % (Auto) 10.2 H, Eos % (Auto) 0.7, Baso % (Auto)0.4, Absolute Neuts (auto) 4.2, Nucleated RBC % 0, APTT 87.8 H,Sodium 138, Potassium 3.7, Chloride 97 L, Carbon Dioxide 29.1, Anion Gap 12, BUN 26 H, Creatinine 1.26 H, Est GFR (MDRD) Non-Af 61, BUN/Creatinine Ratio 20.5 H, Ycieefl133 H, Calcium 8.2, Phosphorus 4.4, Magnesium 2.1, [...] Cosigner Signature (if applicable): CC: ~ Signed [facility]05-04-2025 Progress note Author Krissy Freitas [facility] Note Date/Time March 23, 2025 3:23pm [facility] Medical Records Department [address] [place] [address] Progress Note - Cardiology 03/23/25 1514 MR#: [id number] Acct: [id number] Name: KELVIN LEE JrSavita Rep #:[id number] : 1955 69 From: Krissy Freitas MD PCP: Dr. Lee Mathews MD Status :ADM IN Location: [facility] [id number]- 1 Subjective Subjective Family at bedside at [...] Neut % (Auto) 58.6, Lymph % (Auto) 28.8,[place] % (Auto) 10.5 H, Eos % (Auto) [...] Neut % (Auto)58.6, Lymph % (Auto) 28.8, [place] % (Auto) 10.5 H, Eos % (Auto) [...] the current treatment. On review of the quality assurance monitor patient had nonsustained V. tach DAVID with [...] well as the nursing staff Krissy Freitas MD,[facility] precision honing machine operator 03/23/25 1523 <Electronically signed by Krissy Freitas MD> Cosigner Signature (if applicable): CC: ~ Signed [facility] Work Phone: 1([phone]) 386-279305-04-2025 Progress note [facility] Medical Records Department [address] [place] [address] Progress Note - Cardiology 03/23/25 1514 MR#: [id number] Acct: [id number] Name: KELVIN LEE Jr. Rep #:[id number] : 1955 69 From: Krissy Freitas MD PCP: Dr. Lee Mathews MD Status :ADM IN Location: [place] [address] Subjective Subjective Family at bedside at time [...] 0.500, Neut% (Auto) 58.6, Lymph % (Auto) 28.8,[place] % (Auto) 10.5 H, Eos % (Auto) [...] Neut % (Auto)58.6, Lymph % (Auto) 28.8, [place] % (Auto) 10.5 H, Eos % (Auto) [...] the current treatment. On review of the quality assurance monitor patient had nonsustained V. tach DAVID with [...] well as the nursing staff Krissy Freitas MD,[facility] precision honing machine operator 03/23/25 1523 Cosigner Signature (if applicable): CC: ~ Signed [facility]05-04-2025 Progress note Author Stanley Craig [facility] Note Date/Time March 23, 2025 8:28am [facility] Medical Records Department [address] [place] [address] Progress Note - Hospitalist 03/23/25 0814 MR#: [id number] Acct: [id number] Name: KELVIN LEE Jr. Rep #:[id number] : 1955 69 From: Stanley Craig MD PCP: Dr. Lee Mathews MD Status :ADM IN Location: [place] [id number]- Reason for Visit Reason for Visit: Diagnoses [...] Neut % (Auto) 58.6, Lymph % (Auto) 28.8,[place] % (Auto) 10.5 H, Eos % (Auto) [...] systemic anticoagulation Charges/Coding Visit Charges Inpatient E&M: 45039 Subs Hosp L3 03/23/25 0891 <Electronically signed by Stanley Craig MD> Cosigner Signature (if applicable): CC: ~ Signed [facility] Work Phone: 1(998) 644-744005-04-2025 Progress note [facility] Medical Records Department [address] [place] [address] Progress Note - Hospitalist 03/23/25 0814 MR#: [id number] Acct: [id number] Name: KELVIN LEE Jr. Rep #:[id number] : 1955 69 From: Stanley Craig MD PCP: Dr. Lee Mathews MD Status :ADM IN Location: [place] [address] Reason for Visit Reason for Visit: Diagnoses [...] 0.500, Neut% (Auto) 58.6, Lymph % (Auto) 28.8,[place] % (Auto) 10.5 H, Eos % (Auto) [...] systemic anticoagulation Charges/Coding Visit Charges Inpatient E&M: 69666 Subs Hosp L3 03/23/25 0828 Cosigner Signature (if applicable): CC: ~ Signed [facility]05-03-2025 Progress note Author Krissy Freitas [facility] Note Date/Time March 22, 2025 4:39pm [facility] Medical Records Department [address] [place] [address] Progress Note - Cardiology 03/22/25 1620 MR#: [id number] Acct: [id number] Name: KELVIN LEE Jr. Rep #:[id number] : 1955 69 From: Krissy Freitas MD PCP: Dr. Lee Mathews MD Status :ADM IN Location: [address] 1 Subjective Subjective Patient seen and evaluated [...] Neut % (Auto) 53.3, Lymph % (Auto) 35.9,[place] % (Auto) 9.2, Eos % (Auto) 0.9, [...] Neut % (Auto)53.3, Lymph % (Auto) 35.9, [place] % (Auto) 9.2, Eos % (Auto) 0.9, [...] Physical Exam Cardio Cardio Narrative: Review of quality assurance monitor showed episodes of nonsustained V. tach With [...] require LifeVest prior to discharge Krissy Freitas MD,[facility] precision honing machine operator 03/22/25 1865 <Electronically signed by Krissy Freitas MD> Cosigner Signature (if applicable): CC: ~ Signed [facility] Work Phone: [phone]) 734-986705-03-2025 Progress note [facility] Medical Records Department [address] [place] [address] Progress Note - Cardiology 03/22/25 1620 MR#: [id number] Acct: [id number] Name: KELVIN LEE Rep #:[id number] : 1955 69 From: Krissy Freitas MD PCP: Dr. Lee Mathews MD Status :ADM IN Location: [place] [id number]- Subjective Subjective Patient seen and evaluated today [...] 0.400, Neut% (Auto) 53.3, Lymph % (Auto) 35.9,[place] % (Auto) 9.2, Eos % (Auto) 0.9, [...] Neut % (Auto)53.3, Lymph % (Auto) 35.9, [place] % (Auto) 9.2, Eos % (Auto) 0.9, [...] Physical Exam Cardio Cardio Narrative: Review of quality assurance monitor showed episodes of nonsustained V. tach With [...] require LifeVest prior to discharge Krissy Freitas MD,[facility] precision honing machine operator 03/22/25 6638 Cosigner Signature (if applicable): CC: ~ Signed [facility]05-03-2025 Progress note Author Stanley Craig [facility] Note Date/Time March 22, 2025 9:34am [facility] Medical Records Department [address] [place] [address] Progress Note - Hospitalist 03/22/25 09 MR#: [id number] Acct: [id number] Name: KELVIN LEE JrSavita Rep #:[id number] : 1955 69 From: Stanley Craig MD PCP: Dr. Lee Mathews MD Status :ADM IN Location: [place] [id number]- 1 Reason for Visit Reason for Visit: [...] Neut % (Auto) 53.3, Lymph % (Auto) 35.9,[place] % (Auto) 9.2, Eos % (Auto) 0.9, [...] with apixaban Charges/Coding Visit Charges Inpatient E&M: 11388 Subs Hosp L2 03/22/25 0934 <Electronically signed by Stanley Craig MD> Cosigner Signature (if applicable): CC: ~ Signed [facility] Work Phone: [phone]) [phone] Progress note [facility] Medical Records Department [address] [place] [address] Progress Note - Hospitalist 03/22/25 0912 MR#: [id number] Acct: [id number] Name: KELVIN LEE JrSavita Rep #:[id number] : 1955 69 From: Stanley Craig MD PCP: Dr. Lee Mathews MD Status :ADM IN Location: [place] [address] Reason for Visit Reason for Visit: Diagnoses [...] 0.400, Neut% (Auto) 53.3, Lymph % (Auto) 35.9,[place] % (Auto) 9.2, Eos % (Auto) 0.9, [...] (1+) eccentric tricuspid valve insufficiency. Ordering Physician: Alirio^Jenny^ Referring Physician: Lee Mathews MD Performed By: [...] with apixaban Charges/Coding Visit Charges Inpatient E&M: 06483 Subs Hosp L2 03/22/25 2735 Cosigner Signature (if applicable): CC: ~ Signed [facility]05-02-2025 Consult note Author Krissy Freitas [facility] Note Date/Time March 21, 2025 1:16pm [facility] Medical Records Department [address] [place] [address] Consultation - Cardiology 03/21/25 1305 MR#: [id number] Acct: [id number] Name: KELVIN LEE Jr. Rep #:[id number] : 1955 69 From: Krissy Freitas MD PCP: Dr. Lee Mathews MD Status :ADM IN Location: [place] [address] Assessment & Plan Assessment/Plan (1) Dyspnea: (2) [...] pain In the on review of the quality assurance monitor noted the patient had A-fib with RVR Has been on IV Cardizem which discontinued. Due to negative inotropic effect patient already had severe LV dysfunction with Will continue on on beta-shaniqua metoprolol in addition to low-dose digoxin. Will evaluate with BNP/trops. Will continue to monitor and follow-up clinically. Krissy Freitas MD,[facility] HPI Consult Data Date of Consult: 03/21/25 HPI Narrative Reason for Consultation: Acute systolic heart failure/A-fib with RVR HPI Narrative: KELVIN LEE, is a 69 M who presents [facility] Medical History PAF (paroxysmal atrial fibrillation) CKD [...] with the nursing staff Review of the quality assurance monitor showed A-fib with RVR Cardiac exam S1-S2 [...] Neut % (Auto) 58.4, Lymph % (Auto) 31.0,[place] % (Auto) 9.7, Eos % (Auto) 0.4, [...] (MDRD) Non-Af 49 L, BUN/Creatinine Ratio 16.9, [id number] H, Calcium 8.1, Magnesium 2.0 03/20/25 21:05: [...] Neut % (Auto) 57.9, Lymph % (Auto) 31.8,[place] % (Auto) 9.5, Eos % (Auto) 0.3, [...] Neut % (Auto)58.4, Lymph % (Auto) 31.0, [place] % (Auto) 9.7, Eos % (Auto) 0.4, [...] Neut % (Auto)57.9, Lymph % (Auto) 31.8, [place] % (Auto) 9.5, Eos % (Auto) 0.3, [...] Findings suggestive of vascular congestion. Reading Location: [facility] Echocardiogram 03/21/25 05:55 Interpretation Summary The estimated [...] applicable): CC: Dr. Lee Mathews MD~ Signed [facility] Work Phone: 1(833) 677-315705-02-2025 Consult note [facility] Medical Records Department [address] [place] [address] Consultation - Cardiology 03/21/25 1305 MR#: [id number] Acct: [id number] Name: KELVIN LEE Jr. Rep #:[id number] : 1955 69 From: Krissy Freitas MD PCP: Dr. eLe Mathews MD Status :ADM IN Location: [place] [id number]- 1 Assessment & Plan Assessment/Plan (1) Dyspnea: [...] pain In the on review of the quality assurance monitor noted the patient had A-fib with RVR Has been on IV Cardizem which discontinued. Due to negative inotropic effect patient already had severe LV dysfunction with Will continue on on beta-shaniqua metoprolol in addition to low-dose digoxin. Will evaluate with BNP/trops. Will continue to monitor and follow-up clinically. Krissy Freitas MD,[facility] HPI Consult Data Date of Consult: 03/21/25 HPI Narrative Reason for Consultation: Acute systolic heart failure/A-fib with RVR HPI Narrative: KELVIN LEE, is a 69 M who presents [facility] Medical History PAF (paroxysmal atrial fibrillation) CKD [...] with the nursing staff Review of the quality assurance monitor showed A-fib with RVR Cardiac exam S1-S2 [...] 0.400, Neut% (Auto) 58.4, Lymph % (Auto) 31.0,[place] % (Auto) 9.7, Eos % (Auto) 0.4, Baso % (Auto) 0.1, AbsoluteNeuts (auto) 4.5, Absolute Lymphs (auto) 2.40, Nucleated RBC % 0, Platelet Estimate MOD DEC, Polychromasia 1+, Anisocytosis 1+, Sodium 133, Potassium 4.3, Chloride 93 L, Carbon Dioxide 30.7, Anion Gap 10, BUN 25 H, Creatinine 1.50 H, Estim Creat Clear Calc 58.08, Est GFR (MDRD) Non-Af 49 L, BUN/Creatinine Ratio 16.9, Coegbno748 H, Calcium 8.1, Magnesium 2.0 03/20/25 21:05: [...] 0.400, Neut% (Auto) 57.9, Lymph % (Auto) 31.8,[place] % (Auto) 9.5, Eos % (Auto) 0.3, [...] Neut % (Auto)58.4, Lymph % (Auto) 31.0, [place] % (Auto) 9.7, Eos % (Auto) 0.4, [...] Neut % (Auto)57.9, Lymph % (Auto) 31.8, [place] % (Auto) 9.5, Eos % (Auto) 0.3, [...] Findings suggestive of vascular congestion. Reading Location: [facility] Echocardiogram 03/21/25 05:55 Interpretation Summary The estimated [...] applicable): CC: Dr. Lee Mathews MD~ Signed [facility]05-02-2025 Progress note Author Stanley Craig [facility] Note Date/Time March 21, 2025 10:28a m [facility] Medical Records Department [address] [place] [address] Progress Note - Hospitalist 03/21/25 1016 MR#: [id number] Acct: [id number] Name: KELVIN LEE Rep #:[id number] : 1955 69 From: Stanley Craig MD PCP: Dr. Lee Mathews MD Status :[facility] Reason for Visit Reason for [...] Neut % (Auto) 58.4, Lymph % (Auto) 31.0,[place] % (Auto) 9.7, Eos % (Auto) 0.4, [...] (MDRD) Non-Af 49 L, BUN/Creatinine Ratio 16.9, Fygffmn259 H, Calcium 8.1, Magnesium 2.0 03/20/25 21:05: [...] Neut % (Auto) 57.9, Lymph % (Auto) 31.8,[place] % (Auto) 9.5, Eos % (Auto) 0.3, [...] Findings suggestive of vascular congestion. Reading Location: [facility] Physical Exam Narrative GENERAL: cooperative HEENT: Atraumatic; [...] with apixaban Charges/Coding Visit Charges Inpatient E&M: 42593 Subs Hosp L3 03/21/25 1023 <Electronically signed by Stanley Craig MD> Cosigner Signature (if applicable): CC: ~ Signed [facility] Work Phone: 1(534) 630-416105-02-2025 Progress note [facility] Medical Records Department [address] [place] [address] Progress Note - Hospitalist 03/21/25 1016 MR#: [id number] Acct: [id number] Name: KELVIN LEE Jr. Rep #:[id number] : 1955 69 From: Stanley Craig MD PCP: Dr. Lee Mathews MD Status :ADM IN Location: [place] [address] Reason for Visit Reason for Visit: Diagnoses [...] 0.400, Neut% (Auto) 58.4, Lymph % (Auto) 31.0,[place] % (Auto) 9.7, Eos % (Auto) 0.4, Baso % (Auto) 0.1, AbsoluteNeuts (auto) 4.5, Absolute Lymphs (auto) 2.40, Nucleated RBC % 0, Platelet Estimate MOD DEC, Polychromasia 1+, Anisocytosis 1+, Sodium 133, Potassium 4.3, Chloride 93 L, Carbon Dioxide 30.7, Anion Gap 10, BUN 25 H, Creatinine 1.50 H, Estim Creat Clear Calc 58.08, Est GFR (MDRD) Non-Af 49 L, BUN/Creatinine Ratio 16.9, Kymoozw779 H, Calcium 8.1, Magnesium 2.0 03/20/25 21:05: [...] 0.400, Neut% (Auto) 57.9, Lymph % (Auto) 31.8,[place] % (Auto) 9.5, Eos % (Auto) 0.3, [...] Findings suggestive of vascular congestion. Reading Location: [facility] Physical Exam Narrative GENERAL: cooperative HEENT: Atraumatic; [...] with apixaban Charges/Coding Visit Charges Inpatient E&M: 24582 Subs Hosp L3 03/21/25 1028 Cosigner Signature (if applicable): CC: ~ Signed [facility]05-02-2025 Discharge summary Author Dae Mckeon [facility] Note Date/Time March 20, 2025 10:29p m [facility] Medical Records Department [address] [place] [address] Emergency Department Summary 03/20/25 MR#: [id number] Acct: [id number] Name: KELVIN LEE Jr. Rep #:[id number] : 1955 69 From: Dae Mckeon MD PCP: Dr. Lee Mathews MD Status :ADM IN Location: [place] [address] HPI <FELICIA Murillo - Last Filed: 03/20/25 20:38> [...] fevers, chills, chest pain, or recent illness. [facility] <FELICIA Murillo - Last Filed: 03/20/25 20:38> [facility] Medical History (Updated 03/20/25 @ 20:38 by [...] Oxygen Delivery Method Room Air Room Air 05/01/25 18:30 03/20/25 19:00 03/20/25 19:42 Temperature Temperature [...] 96 Oxygen Delivery Method Room Air MDM <FELICIA Murillo - Last Filed: 03/20/25 20:38> [facility] Narrative Medical decision making narrative: Patient [...] % (Auto) 58.4 Lymph % (Auto) 31.0 [place] % (Auto) 9.7 Eos % (Auto) 0.4 [...] Findings suggestive of vascular congestion. Reading Location: [facility] EKG Initial EKG: Comments: 139 bpm, A-fib with RVR, no ST elevation, interpreted by attending ED physician <Dr. Dae Mckeon MD - Last Filed: 03/20/25 18:57> [facility] Lab Data Labs: Laboratory Results - last 24 hr 03/20/25 17:33 WBC 7.8 RBC 5.11 Hgb 16.1 Hct 48.7 MCV 95.3 H MCH 31.5 MCHC 33.1 RDW Std Deviation 53.7 H RDW Coeff of Hair 15.2 H Plt Count 87 L MPV 11.3 Immature Gran % (Auto) 0.400 Neut % (Auto) 58.4 Lymph % (Auto) 31.0 [place] % (Auto) 9.7 Eos % (Auto) 0.4 [...] Findings suggestive of vascular congestion. Reading Location: [facility] Treatment and Re-Evaluation Comments:: I have personally [...] COPD, Dyspnea Disposition Disposition: [facility] Discharge Date/Time: 03/20/25 20:30 What to do if you have Problems For any increased pain, shortness of breath, bleeding, nausea or vomiting, chest pain, or any unexpected problems, contact your Primary Care Provider. Call [facility] ([phone]) or report to the closest Emergency Room. Call 911 if necessary. 03/20/252228 <Electronically signed by Dae Mckeon MD> Cosigner Signature (if applicable): 03/20/252037 <Electronically signed by Roselia DUARTE> CC: Dr. Lee Mathews MD ~ Signed [facility] Work Phone: 1([phone] 206-572705-01-2025 History and physical note Author Sophia Lowe [facility] Note Date/Time March 20, 2025 8:46pm [facility] Medical Records Department [address] [place] [address] H&P Exam - Hospitalist 03/20/251950 MR#: [id number] Acct: [id number] Name: KELVIN LEE JrSavita Rep #:[id number] : 1955 69 From: Sophia Lowe MD PCP: Dr. Lee Mathews MD Status :ADM IN Location: [facility] IAU605- 1 HPI - General General Date of Admission: 03/20/25 Date of Service: 03/20/25 Chief Complaint: Dyspnea, orthopnea, weight gain, edema. HPI Narrative The patient is a 69 y/o M w/ PMHx: Morbid obesity, HTN, HLD, Anxiety and Depression, COPD, Tobacco use, HFrEF, PAF who presents to the [facility] ED on 03/20/2025 with history of approximately [...] drip given no marked change in rate. [facility] Medical History PAF (paroxysmal atrial fibrillation) CKD [...] Neut % (Auto) 58.4, Lymph % (Auto) 31.0,[place] % (Auto) 9.7, Eos % (Auto) 0.4, [...] (MDRD) Non-Af 49 L, BUN/Creatinine Ratio 16.9, Dneebyf917 H, Calcium 8.1 Assessment & Plan Assessment/Plan (1) Acute systolic CHF (congestive heart failure): (2) Atrial fibrillation with RVR: PLAN: Plan The patient is a 69 y/o M w/ PMHx: Morbid obesity, HTN, HLD, Anxiety and Depression, COPD, Tobacco use, HFrEF, PAF who presents to the [facility] ED on 03/20/2025 with history of approximately [...] and recent possible Lasix increase. Admission BUN/Cr /.50, GFR 49, prior baseline creatinine noted to [...] 16 minutes. Charges/Coding Visit Charges Inpatient E&M: 71048 Init Hosp L3 Procedures Hospitalists Procedures: 82559 Advncd Care Plan 30 Min 03/20/252045 <Electronically signed by Sophia Lowe MD> Cosigner Signature (if applicable): CC: Dr. Sophia Lowe MD; Dr. Lee Mathews MD~ Signed [facility] Work Phone: 1([phone]) 826-886405-01-2025 Discharge summary [facility] Medical Records Department [address] [place] [address] Emergency Department Summary 03/20/25 MR#: [id number] Acct: [id number] Name: KELVIN LEE Jr. Rep #:[id number] : 1955 69 From: Dae Mckeon MD PCP: Dr. Lee Mathews MD Status :ADM IN Location: [place] [address] HPI History of Present Illness Chief Complaint: [...] any fevers,chills, chest pain, or recent illness. [facility] Medical History (Updated 03/20/25 @ 20:38 by [...] % (Auto) 58.4 Lymph % (Auto) 31.0 [place] % (Auto) 9.7 Eos % (Auto) 0.4 [...] Findings suggestive of vascular congestion. Reading Location: [facility] EKG Initial EKG: Comments: 139 bpm, A-fib with RVR, no ST elevation, interpreted by attending ED physician [facility] Lab Data Labs: Laboratory Results - last 24 hr 03/20/25 17:33 WBC 7.8 RBC 5.11 Hgb 16.1 Hct 48.7 MCV 95.3 H MCH 31.5 MCHC 33.1 RDW Std Deviation 53.7 H RDW Coeff of Hair 15.2 H Plt Count 87 L MPV 11.3 Immature Gran % (Auto) 0.400 Neut % (Auto) 58.4 Lymph % (Auto) 31.0 [place] % (Auto) 9.7 Eos % (Auto) 0.4 [...] Findings suggestive of vascular congestion. Reading Location: [facility] Treatment and Re-Evaluation Comments:: I have personally [...] an outpatient echo scheduled for 5 days fromw. History of A-fib. Feeling lightheaded on occasion, [...] COPD, Dyspnea Disposition Disposition: Acute Care Hospital [facility] Discharge Date/Time: 03/20/25 20:30 What to do if you have Problems For any increased pain, shortness of breath, bleeding, nausea or vomiting, chest pain, or any unexpected problems, contact your Primary Care Provider. Call [facility] ([phone]) or report to the closest Emergency Room. Call 911 if necessary. 03/20/252228 Cosigner Signature (if applicable): 03/20/252037 CC: Dr. Lee Mathews MD ~ Signed [facility]05-01-2025 Evaluation note* Diagnosis Onset Date Resolution Status Admit Date Acute systolic CHF (congesti ve heart failure) acute March 20, 2025 7: 54pm Atrial fibrillation with RVR acute March 20, 2025 7:54pm Cardiac LV ejection fraction 10-20% acute March 20, 2025 7: 54pm Dyspnea acute March 20, 2025 7:54pm History of COPD chronic March 20, 2025 7:54pm Smoker chronic March 20, 2025 7:54pm [facility] Work Phone: 1([phone]) 351-486705-01-2025 Evaluation note* Diagnosis Onset Date Resolution Status [...] 1:34pm Dyspnea acute April 03, 2025 1:34pm [facility] Work Phone: 1(246) [phone] Evaluation note* Diagnosis Onset Date Resolution Status [...] 10-20% inactive April 03, 2025 1 :34pm [facility] Work Phone: 1(645) 799-110305-01-2025 Evaluation note* Diagnosis Onset Date Resolution Status [...] 10-20% inactive April 03, 2025 1 :34pm Acute systolic CHF (congesti ve heart failure) acute May 27, 2025 1 :44pm Atrial fibrillation with RVR acute May 27, 2025 1:44pm [facility] Work Phone: 1(554) 396-332805-01-2025 Evaluation note* Diagnosis Onset Date Resolution Status [...] 10-20% inactive April 03, 2025 1 :34pm Acute systolic CHF (congesti ve heart failure) acute May 27, 2025 1 :44pm Atrial fibrillation with RVR acute May 27, 2025 1:44pm Atrial fibrillation with RVR acute July 04, 2025 1:26pm Hypersomnolence acute July 042024 1:26pm Cardiac LV ejection fraction 10-20% inactive July 04 1:26pm [facility] Work Phone: 1([phone]) 546-357205-01-2025 Evaluation note* Diagnosis Onset Date Resolution Status Admit Date Acute systolic CHF (congesti ve heart failure) acute March 20, 2025 7: 54pm Atrial fibrillation with RVR acute March 20, 2025 7:54pm Cardiac LV ejection fraction 10-20% acute March 20, 2025 7: 54pm Smoker chronic March 20, 2025 7:54pm Dyspnea resolved March 20, 2025 7:54pm History of COPD inactive March 20, 2025 7:54pm Atrial fibrillation with RVR acute April 03, 2025 1:34pm Cardiac LV ejection fraction 10-20% acute April 03, 2025 1 :34pm Hypersomnolence acute April 03, 2025 1:34pm Dyspnea resolved April 03, 2025 1:34pm Acute systolic CHF (congesti ve heart failure) acute May 27, 2025 1 :44pm Atrial fibrillation with RVR acute May 27, 2025 1:44pm Atrial fibrillation with RVR acute July 04, 2025 1:26pm Cardiac LV ejection fraction 10-20% acute July 04 1:26pm [facility] Work Phone: [phone]) 612-250005-01-2025 History and physical note [facility] Medical Records Department [address] [place] [address] H&P Exam - Hospitalist 03/20/251950 MR#: [id number] Acct: [id number] Name: MARYKELVIN Rep #:[id number] : 1955 69 From: Sophia Lowe MD PCP: Dr. Lee Mathews MD Status :[facility] - General General Date of Admission: 03/20/25 Date of Service: 03/20/25 Chief Complaint: Dyspnea, orthopnea, weight gain, edema. HPI Narrative The patient is a 69 y/o M w/ PMHx: Morbid obesity, HTN, HLD, Anxiety and Depression, COPD, Tobacco use, HFrEF, PAF who presents to the [facility] ED on 03/20/2025 with history of approximately [...] drip given no marked change in rate. [facility] Medical History PAF (paroxysmal atrial fibrillation) CKD [...] 0.400, Neut% (Auto) 58.4, Lymph % (Auto) 31.0,[place] % (Auto) 9.7, Eos % (Auto) 0.4, Baso % (Auto) 0.1, AbsoluteNeuts (auto) 4.5, Absolute Lymphs (auto) 2.40, Nucleated RBC % 0, Platelet Estimate MOD DEC, Polychromasia 1+, Anisocytosis 1+, Sodium 133, Potassium 4.3, Chloride 93 L, Carbon Dioxide 30.7, Anion Gap 10, BUN 25 H, Creatinine 1.50 H, Estim Creat Clear Calc 58.08, Est GFR (MDRD) Non-Af 49 L, BUN/Creatinine Ratio 16.9, [id number] H, Calcium 8.1 Assessment & Plan Assessment/Plan (1) Acute systolic CHF (congestive heart failure): (2) Atrial fibrillation with RVR: PLAN: Plan The patient is a 69 y/o M w/ PMHx: Morbid obesity, HTN, HLD, Anxiety and Depression, COPD, Tobacco use, HFrEF, PAF who presents to the [facility] ED on 03/20/2025 with history of approximately [...] 16 minutes. Charges/Coding Visit Charges Inpatient E&M: 27406 Init Hosp L3 Procedures Hospitalists Procedures: 99423 Advncd Care Plan 30 Min 03/20/252045 Cosigner Signature (if applicable): CC: Dr. Sophia Lowe MD; Dr. Lee Mathews MD~ Signed [facility]05-01-2025 Radiology Diagnostic study note [facility] Imaging Services [address] [place] [address] Chest PA and Lateral MR#: [id number] Acct: [id number] Name: KELVIN LEE Jr. Rep #: [id number] : 1955 M 69 From: Filomena Mosher MD PCP: Dr. Lee Mathews MD Status: REG ER Study:Chest PA and Lateral Date of Exam: 03/20/25 Exam# [id number] Ordering Dr: Roselia Nieves PROCEDURE: CHEST PA [...] Dr. Lee Mathews MD; FELICIA Murillo ~ Welfare Specialist: Signed [facility]04-15-2025 Radiology Diagnostic study note [facility] Imaging Services [address] [place] [address] Chest PA and Lateral MR#: [id number] Acct: [id number] Name: KELVIN LEE Jr. Rep #: [id number] : 1955 M 69 From: Isidro Viveros MD PCP: Dr. Lee Mathews MD Status: REG CLI Study:Chest PA and Lateral Date of Exam: 03/03/25 Exam# [id number] Ordering Dr: Brooke Mathews MD PROCEDURE: CHEST [...] of active or chronic tuberculosis. Reading Location: [facility] CC: Dr. Lee Mathews MD ~ Welfare Specialist: Signed [facility] assessment information available [facility] Work Phone: Hospital Discharge instructionsAdditional Instructions Continue your current medications. No driving for the next 36 hours. Be very careful on steps. Have assistance. Due to the anesthesia we gave you today. Follow-up with your receiver bulk system next week. Return if feeling worse.[facility] Work Phone: Reason for referral (narrative)No reason for referral information availableWMercy Health [facility] Work Phone: Family History Relationship Condition Age at Onset Recorded Date/T jose father History of blood clots Unknown Lupus erythematosus Unknown Disorder of intestine Unknown Malignant neoplasm of colon Unknown Malignant neoplasm of skin Unknown Cerebrovascular accident (CVA) Unknown mother Hypertension Unknown Advance Directives Advance Directive Response Recorded Date/ Time Living Will No November 13 4:00pm Power of Ecommerce Merchandising Manager No November 13, 2021 4:00pm Advance Directive Response Recorded Date/ Time Do you have a Healthcare Power of Ecommerce Merchandising Manager? No March 20, 2025 8:23pm Advance Directive Response Recorded Date/ Time Do you have a Healthcare Power of Ecommerce Merchandising Manager? No March 20, 2025 8:23pm Advance Directives on File No May 01, 2025 1:04pm Living Will No May 01, 2025 1:04pm Do you have a Healthcare Power of Ecommerce Merchandising Manager? No May 01, 2025 1:04pm Living Will No May 05, 2025 11:28am Do you have a Healthcare Power of Ecommerce Merchandising Manager? No May 05, 2025 11:28am Advance Directives No May 05 11:28am Advance Directive Response Recorded Date/ Time Do you have a Healthcare Power of Ecommerce Merchandising Manager? No March 20, 2025 8:23pm Advance Directives on File No May 01, 2025 1:04pm Living Will No May 01, 2025 1:04pm Do you have a Healthcare Power of Ecommerce Merchandising Manager? No May 01, 2025 1:04pm Living Will No May 05, 2025 11:28am Do you have a Healthcare Power of Ecommerce Merchandising Manager? No May 05, 2025 11:28am Advance Directives No May 05 11:28am Do you have a Healthcare Power of Ecommerce Merchandising Manager? No July 18, 2025 4:54pm Chief Complaint and Reason for Visit Chief [...] PAF RVR March 27, 2025 11:13a m [facility] 5/8 CHF April 03, 2025 1:34p m Reason [...] PAF RVR March 27, 2025 11:13a m [facility] 58 CHF April 03, 2025 1:34p m EORDER [...] with RVR April 03, 2 025 1:34pm Hypersomnolence April 03, 2025 1:34p m Dyspnea April 03, 2025 1:34p m Cardiac LV ejection fraction 10-20% April 03, 2025 1:34pm Chief Complaint Admit Date HF EXAC, PAF [...] PAF RVR March 27, 2025 11:13a m [facility] 03/27 CHF April 03, 2025 1:34p m EORDER April 03, 2025 3:33p m HF w/EF<35% May 01, 2025 12:5 5pm Atrial fibrillation May 01, 2025 12:5 9pm AFIB May 05, 2025 10:2 4am Atrial fibrillation May 05, 2025 12:5 0pm Atrial fibrillation May 05, 2025 12:5 9pm Chief Complaint Admit Date HF EXAC, PAF [...] PAF RVR March 27, 2025 11:13a m [facility] 03/27 CHF April 03, 2025 1:34p m EORDER April 03, 2025 3:33p m HF w/EF<35% May 01, 2025 12:5 5pm Atrial fibrillation May 01, 2025 12:5 9pm AFIB May 05, 2025 10:2 4am Atrial fibrillation May 05, 2025 12:5 0pm Atrial fibrillation May 05, 2025 12:5 9pm HF w/EF<35% May 09, 2025 3:15 pm S/P DCCV May 12, 2025 1:45 pm Chief Complaint Admit Date HF EXAC, PAF [...] PAF RVR March 27, 2025 11:13a m [facility] 5/8 CHF April 03, 2025 1:34p m EORDER April 03, 2025 3:33p m HF w/EF<35% May 01, 2025 12:5 5pm Atrial fibrillation May 01, 2025 12:5 9pm AFIB May 05, 2025 10:2 4am Atrial fibrillation May 05, 2025 12:5 0pm Atrial fibrillation May 05, 2025 12:5 9pm S/P DCCV May 12, 2025 1:45 pm HF w/EF<35% May 19, 2025 3:15 pm Chief Complaint Admit Date HF EXAC, PAF [...] PAF RVR March 27, 2025 11:13a m [facility] 5/8 CHF April 03, 2025 1:34p m EORDER April 03, 2025 3:33p m HF w/EF<35% May 01, 2025 12:5 5pm Atrial fibrillation May 01, 2025 12:5 9pm AFIB May 05, 2025 10:2 4am Atrial fibrillation May 05, 2025 12:5 0pm Atrial fibrillation May 05, 2025 12:5 9pm S/P DCCV May 12, 2025 1:45 pm HF w/EF<35% May 19, 2025 3:15 pm HF w/EF<35% May 26, 2025 3:15p m 2 W FU/EKG NEEDED May 27, 2025 1:44p m Chief Complaint Admit Date HF EXAC, [...] PAF RVR March 27, 2025 11:13a m [facility] 5/8 CHF April 03, 2025 1:34p m EORDER April 03, 2025 3:33p m HF w/EF<35% May 01, 2025 12:5 5pm Atrial fibrillation May 01, 2025 12:5 9pm AFIB May 05, 2025 10:2 4am Atrial fibrillation May 05, 2025 12:5 0pm Atrial fibrillation May 05, 2025 12:5 9pm S/P DCCV May 12, 2025 1:45 pm HF w/EF<35% May 19, 2025 3:15 pm 2 W FU/EKG NEEDED May 27, 2025 1:44p m HF w/EF<35% June 18, 2025 3:15 pm Reason for Visit Admit Date Acute systolic CHF (congestive heart patricia lure) March 20, 2025 7:54pm Atrial fibrillation with RVR March 20 7:54pm Smoker March 20, 2025 7:54pm Dyspnea March 20, 2025 7:54pm Cardiac LV ejection fraction 10-20% March 20, 2025 7:54pm History of COPD March 20, 2025 7:54pm Atrial fibrillation with RVR April 03, 2 025 1:34pm Hypersomnolence April 03, 2025 1:34p m Dyspnea April 03, 2025 1:34p m Cardiac LV ejection fraction 10-20% April 03, 2025 1:34pm Acute systolic CHF (congestive heart patricia lure) May 27, 2025 1:44pm Atrial fibrillation with RVR May 27, 2 025 1:44pm Chief Complaint Admit Date HF EXAC, PAF [...] PAF RVR March 27, 2025 11:13a m [facility] 5/8 CHF April 03, 2025 1:34p m EORDER April 03, 2025 3:33p m HF w/EF<35% May 01, 2025 12:5 5pm Atrial fibrillation May 01, 2025 12:5 9pm AFIB May 05, 2025 10:2 4am Atrial fibrillation May 05, 2025 12:5 0pm Atrial fibrillation May 05, 2025 12:5 9pm S/P DCCV May 12, 2025 1:45 pm HF w/EF<35% May 19, 2025 3:15 pm 2 W FU/EKG NEEDED May 27, 2025 1:44p m HF w/EF<35% June 18, 2025 3:15 pm Ventricular premature depolarization Aug us2024 1:52pm Ventricular premature depolarization Jun ust 2024 2:32pm HF w/EF<35% June 30, 2025 3: 15pm Chief Complaint Admit Date HF EXAC, PAF [...] PAF RVR March 27, 2025 11:13a m [facility] 5/8 CHF April 03, 2025 1:34p m EORDER April 03, 2025 3:33p m HF w/EF<35% May 01, 2025 12:5 5pm Atrial fibrillation May 01, 2025 12:5 9pm AFIB May 05, 2025 10:2 4am Atrial fibrillation May 05, 2025 12:5 0pm Atrial fibrillation May 05, 2025 12:5 9pm S/P DCCV May 12, 2025 1:45 pm HF w/EF<35% May 19, 2025 3:15 pm 2 W FU/EKG NEEDED May 27, 2025 1:44p m HF w/EF<35% June 18, 2025 3:15 pm Ventricular premature depolarization Aug us2024 1:52pm Ventricular premature depolarization Jun us2024 2:32pm HRrEF July 02, 2025 3: 03pm HF w/EF<35% July 02, 2025 3: 15pm Amb Documentation July 03, 2025 9: 55am 3 M FU July 04, 2025 1: 26pm Reason for Visit Admit Date Acute systolic CHF (congestive heart patricia lure) March 20, 2025 7:54pm Atrial fibrillation with RVR March 20 7:54pm Smoker March 20, 2025 7:54pm Dyspnea March 20, 2025 7:54pm Cardiac LV ejection fraction 10-20% March 20, 2025 7:54pm History of COPD March 20, 2025 7:54pm Atrial fibrillation with RVR April 03, 2 025 1:34pm Hypersomnolence April 03, 2025 1:34p m Dyspnea April 03, 2025 1:34p m Cardiac LV ejection fraction 10-20% April 03, 2025 1:34pm Acute systolic CHF (congestive heart patricia lure) May 27, 2025 1:44pm Atrial fibrillation with RVR May 27 2 025 1:44pm Atrial fibrillation with RVR June 1:26pm Hypersomnolence July 04, 2025 1: 26pm Cardiac LV ejection fraction 10-20% Augu 2024 1:26pm Chief Complaint Admit Date HF EXAC, PAF [...] PAF RVR March 27, 2025 11:13a m [facility] 5/8 CHF April 03, 2025 1:34p m EORDER April 03, 2025 3:33p m HF w/EF<35% May 01, 2025 12:5 5pm Atrial fibrillation May 01, 2025 12:5 9pm AFIB May 05, 2025 10:2 4am Atrial fibrillation May 05, 2025 12:5 0pm Atrial fibrillation May 05, 2025 12:5 9pm S/P DCCV May 12, 2025 1:45 pm HF w/EF<35% May 19, 2025 3:15 pm 2 W FU/EKG NEEDED May 27, 2025 1:44p m HF w/EF<35% June 18, 2025 3:15 pm Ventricular premature depolarization Jun 1:52pm Ventricular premature depolarization Jun 2:32pm HRrEF July 02, 2025 3: 03pm Amb Documentation July 03, 2025 9: 55am 3 M FU July 04, 2025 1: 26pm HF w/EF<35% July 09, 2025 3: 15pm Reason for Visit Admit Date Acute systolic CHF (congestive heart patricia lure) March 20, 2025 7:54pm Atrial fibrillation with RVR March 20 7:54pm Cardiac LV ejection fraction 10-20% March 20, 2025 7:54pm Smoker March 20, 2025 7:54pm Dyspnea March 20, 2025 7:54pm History of COPD March 20, 2025 7:54pm Atrial fibrillation with RVR April 03, 2 025 1:34pm Cardiac LV ejection fraction 10-20% April 03, 2025 1:34pm Hypersomnolence April 03, 2025 1:34p m Dyspnea April 03, 2025 1:34p m Acute systolic CHF (congestive heart patricia lure) May 27, 2025 1:44pm Atrial fibrillation with RVR May 27, 2 025 1:44pm Atrial fibrillation with RVR June 1:26pm Cardiac LV ejection fraction 10-20% Jun 2024 1:26pm Chief Complaint Admit Date HF EXAC, PAF [...] PAF RVR March 27, 2025 11:13a m [facility] 5/8 CHF April 03, 2025 1:34p m EORDER April 03, 2025 3:33p m HF w/EF<35% May 01, 2025 12:5 5pm Atrial fibrillation May 01, 2025 12:5 9pm AFIB May 05, 2025 10:2 4am Atrial fibrillation May 05, 2025 12:5 0pm Atrial fibrillation May 05, 2025 12:5 9pm S/P DCCV May 12, 2025 1:45 pm HF w/EF<35% May 19, 2025 3:15 pm 2 W FU/EKG NEEDED May 27, 2025 1:44p m HF w/EF<35% June 18, 2025 3:15 pm Ventricular premature depolarization Jun 1:52pm Ventricular premature depolarization Jun 2:32pm HRrEF July 02, 2025 3: 03pm Amb Documentation July 03, 2025 9: 55am 3 M FU July 04, 2025 1: 26pm HF w/EF<35% July 18, 2025 3: 15pm PALPITATIONS July 18, 2025 3: 46pm Summary Purpose Additional Source Comments Care Teams (unrecognized sec tion and content) Team Status: Active Member Role Status Dates Dr. Uzair Mathews MD Family Provider Active Dr. Uzair Mathews MD Primary Care Provider Activ e Team Status: Inactive Member Role Status Dates Dr. Uzair Mathews MD Primary Care Provider, Atte estelle Provider Active Team Status: Active Member Role [...] Acti ve Start: March 21, 2025 Dr. Dae Mckeon MD Emergency Provider [...] Acti ve Start: March 24, 2025 Dr. Cralton Keyes MD Attending Provider Active S tart: [...] 2025 End: April 03, 2025 Ariane Perez PIANO REGULATOR, PIANO REGULATOR-C Attending Provider Active Start: April 03, 2025 End: April 03, 2025 Team Status: Inactive Member Role Status Dates Dr. Lee Mathews MD Primary Care Provider Acti ve Start: April 03, 2025 End: April 03, 2025 Ariane Perez NP, PIANO REGULATOR-C Attending Provider Active Start: April 03, 2025 End: April 03, 2025 Ariane Perez PIANO REGULATOR, PIANO REGULATOR-C Referring Provider Active Start: April 03, 2025 End: April 03, 2025 Team Status: Active Member Role Status Dates Dr. Lee Mathews MD Primary Care Provider Acti ve Start: May 01, 2025 Dr. Carlton Keyes MD Attending Provider Active S tart: May 01, 2025 Dr. Carlton Keyes MD Referring Provider Active S tart: May 01, 2025 Team Status: Active Member Role Status Dates Dr. Lee Mathews MD Primary Care Provider Acti ve Start: May 01, 2025 Dr. Carlton Keyes MD Attending Provider Active S tart: May 01, 2025 Dr. Carlton Keyes MD Other Provider Active Start : May 01, 2025 Team Status: Inactive Member Role Status Dates Dr. Lee Mathews MD Primary Care Provider Acti ve Start: May 05, 2025 End: May 05, 2025 Dr. Carlton Keyes MD Attending Provider Active S tart: May 05, 2025 End: May 05, 2025 Dr. Carlton Keyes MD Referring Provider Active S tart: May 05, 2025 End: May 05, 2025 Team Status: Active Member Role Status Dates Dr. Lee Mathews MD Primary Care Provider Acti ve Start: May 05, 2025 Dr. Carlton Keyes MD Attending Provider Active S tart: May 05, 2025 Dr. Carlton Keyes MD Referring Provider Active S tart: May 05, 2025 Dr. Carlton Keyes MD Other Provider Active Start : May 05, 2025 Team Status: Active Member Role Status Dates Dr. Lee Mathews MD Primary Care Provider Acti ve Start: May 05, 2025 Dr. Carlton Keyes MD Referring Provider Active S tart: May 05, 2025 Dr. Carlton Keyes MD Other Provider Active Start : May 05, 2025 Dr. Nigel Read DO Attending Provider Active S tart: May 05, 2025 Team Status: Inactive Member Role Status Dates Dr. Lee Mathews MD Primary Care Provider Acti ve Start: May 01, 2025 End: May 01, 2025 Dr. Carlton Keyes MD Attending Provider Active S tart: May 01, 2025 End: May 01, 2025 Dr. Carlton Keyes MD Referring Provider Active S tart: May 01, 2025 End: May 01, 2025 Team Status: Active Member Role Status Dates Dr. Lee Mathews MD Primary Care Provider Acti ve Start: May 09, 2025 Dr. Carlton Keyes MD Attending Provider Active S tart: May 09, 2025 Dr. Carlton Keyes MD Referring Provider Active S tart: May 09, 2025 Team Status: Inactive Member Role Status Dates Dr. Lee Mathews MD Primary Care Provider Acti ve Start: May 12, 2025 End: May 12, 2025 Dr. Lee Mathews MD Referring Provider Active Start: May 12, 2025 End: May 12, 2025 Dr. Carlton Keyes MD Attending Provider Active S tart: May 12, 2025 End: May 12, 2025 Team Status: Active Member Role/Relationship Status Dates Dr. Lee Mathews MD Primary Care Provider Acti ve Team Status: Inactive Member Role/Relationship Status Dates Dr. Lee Mathews MD Primary Care Provider Acti ve Start: March 03, 2025 End: March 03, 2025 Dr. Lee Mathews MD Attending Provider Active Start: March 03, 2025 End: March 03, 2025 Dr. Lee Mathews MD Referring Provider Active Start: March 03, 2025 End: March 03, 2025 Team Status: Inactive Member Role/Relationship Status Dates Dr. Lee Mathews MD Primary Care Provider Acti ve Start: March 18, 2025 End: March 18, 2025 Dr. Lee Mathews MD Attending Provider Active Start: March 18, 2025 End: March 18, 2025 Dr. Lee Mathews MD Referring Provider Active Start: March 18, 2025 End: March 18, 2025 Team Status: Inactive Member Role/Relationship Status Dates Dr. Lee Mathews MD Primary [...] March 27, 2025 Team Status: Active Member Role/Relationship Status Dates Dr. Lee Mathews MD Primary [...] March 20, 2025 Team Status: Active Member Role/Relationship Status Dates Dr. Lee Mathews MD Primary Care Provider Acti ve Start: March 21, 2025 Dr. Krissy Freitas MD Attending Provider Active Start: March 21, 2025 Team Status: Active Member Role/Relationship Status Dates Dr. Lee Mathews MD Primary Care Provider Acti ve Start: March 21, 2025 Dr. Dae Mckeon MD Emergency Provider Active Start: March 21, 2025 Dr. Sophia Lowe MD Admit Provider Active St art: March 21, 2025 Dr. Sophia Lowe MD Other Provider Active St art: March 21, 2025 Dr. Stanley Craig MD Attending Provider Active Start: March 21, 2025 Dr. Stanley Craig MD Other Provider Active Star t: March 21, 2025 Team Status: Active Member Role/Relationship Status Dates Dr. Lee Mathews MD Primary [...] March 22, 2025 Team Status: Active Member Role/Relationship Status Dates Dr. Lee Mathews MD Primary [...] March 22, 2025 Team Status: Active Member Role/Relationship Status Dates Dr. Lee Mathews MD Primary [...] March 23, 2025 Team Status: Active Member Role/Relationship Status Dates Dr. Lee Mathews MD Primary [...] March 23, 2025 Team Status: Active Member Role/Relationship Status Dates Dr. Lee Mathews MD Primary Care Provider Acti ve Start: March 24, 2025 Dr. Carlton Keyes MD Attending Provider Active S tart: March 24, 2025 Team Status: Active Member Role/Relationship Status Dates Dr. Lee Mathews MD Primary [...] March 24, 2025 Team Status: Active Member Role/Relationship Status Dates Dr. Lee Mathews MD Primary [...] March 25, 2025 Team Status: Active Member Role/Relationship Status Dates Dr. Lee Mathews MD Primary [...] March 25, 2025 Team Status: Active Member Role/Relationship Status Dates Dr. Lee Mathews MD Primary Care Provider Acti ve Start: March 26, 2025 Dr. Dae Mckeon MD Emergency Provider Active Start: March 26, 2025 Dr. Sophia Lowe MD Admit Provider Active St art: March 26, 2025 Dr. Sopiha Lowe MD Other Provider Active St art: March 26, 2025 Dr. Krissy Freitas MD Other Provider Active Star t: March 26, 2025 Dr. Derrick Chacon MD Other Provider Active Sta rt: March 26, 2025 Dr. Stanley Craig MD Other Provider Active Star t: March 26, 2025 Dr. Madhu Bautista MD Attending Provider Active Start: March 26, 2025 Team Status: Active Member Role/Relationship Status Dates Dr. Lee Mathews MD Primary [...] March 26, 2025 Team Status: Active Member Role/Relationship Status Dates Dr. Lee Mathews MD Primary Care Provider Acti ve Start: March 27, 2025 Dr. Dae Mckeon MD Emergency Provider Active Start: March 27, 2025 Dr. Sophia Lowe MD Admit Provider Active St art: March 27, 2025 Dr. Sophia oLwe MD Other Provider Active St art: March 27, 2025 Dr. Krissy Freitas MD Other Provider Active Star t: March 27, 2025 Dr. Derrick Chacon MD Other Provider Active Sta rt: March 27, 2025 Dr. Stanley Craig MD Other Provider Active Star t: March 27, 2025 Dr. Madhu Bautista MD Attending Provider Active Start: March 27, 2025 Team Status: Active Member Role/Relationship Status Dates Dr. Lee Mathews MD Primary [...] March 27, 2025 Team Status: Inactive Member Role/Relationship Status Dates Dr. Lee Mathews MD Primary Care Provider Acti ve Start: April 03, 2025 End: April 03, 2025 Dr. Lee Mathews MD Referring Provider Active Start: April 03, 2025 End: April 03, 2025 Ariane Perez PIANO REGULATOR, PIANO REGULATOR-C Attending Provider Active Start: April 03, 2025 End: April 03, 2025 Team Status: Inactive Member Role/Relationship Status Dates Dr. Lee Mathews MD Primary Care Provider Acti ve Start: April 03, 2025 End: April 03, 2025 Ariane Perez PIANO REGULATOR, PIANO REGULATOR-C Attending Provider Active Start: April 03, 2025 End: April 03, 2025 Ariane Perez PIANO REGULATOR, PIANO REGULATOR-C Referring Provider Active Start: April 03, 2025 End: April 03, 2025 Team Status: Inactive Member Role/Relationship Status Dates Dr. Lee Mathews MD Primary Care Provider Acti ve Start: May 01, 2025 End: May 01, 2025 Dr. Carlton Keyes MD Attending Provider Active S tart: May 01, 2025 End: May 01, 2025 Dr. Carlton Keyes MD Referring Provider Active S tart: May 01, 2025 End: May 01, 2025 Team Status: Active Member Role/Relationship Status Dates Dr. Lee Mathews MD Primary Care Provider Acti ve Start: May 01, 2025 Dr. Carlton Keyes MD Attending Provider Active S tart: May 01, 2025 Dr. Carlton Keyes MD Other Provider Active Start : May 01, 2025 Team Status: Inactive Member Role/Relationship Status Dates Dr. Lee Mathews MD Primary Care Provider Acti ve Start: May 05, 2025 End: May 05, 2025 Dr. Carlton Keyes MD Attending Provider Active S tart: May 05, 2025 End: May 05, 2025 Dr. Carlton Keyes MD Referring Provider Active S tart: May 05, 2025 End: May 05, 2025 Team Status: Active Member Role/Relationship Status Dates Dr. Lee Mathews MD Primary Care Provider Acti ve Start: May 05, 2025 Dr. Carlton Keyes MD Attending Provider Active S tart: May 05, 2025 Dr. Carlton Keyes MD Referring Provider Active S tart: May 05, 2025 Dr. Carlton Keyes MD Other Provider Active Start : May 05, 2025 Team Status: Active Member Role/Relationship Status Dates Dr. Lee Mathews MD Primary Care Provider Acti ve Start: May 05, 2025 Dr. Carlton Keyes MD Referring Provider Active S tart: May 05, 2025 Dr. Carlton Keyes MD Other Provider Active Start : May 05, 2025 Dr. Nigle Read DO Attending Provider Active S tart: May 05, 2025 Team Status: Inactive Member Role/Relationship Status Dates Dr. Lee Mathews MD Primary Care Provider Acti ve Start: May 12, 2025 End: May 12, 2025 Dr. Lee Mathews MD Referring Provider Active Start: May 12, 2025 End: May 12, 2025 Dr. Carlton Keyes MD Attending Provider Active S tart: May 12, 2025 End: May 12, 2025 Team Status: Inactive Member Role/Relationship Status Dates Dr. Lee Mathews MD Primary Care Provider Acti ve Start: May 19, 2025 End: May 19, 2025 Dr. Carlton Keyes MD Attending Provider Active S tart: May 19, 2025 End: May 19, 2025 Dr. Carlton Keyes MD Referring Provider Active S tart: May 19, 2025 End: May 19, 2025 Team Status: Active Member Role/Relationship Status Dates Dr. Lee Mathews MD Primary Care Provider Acti ve Start: May 26, 2025 Dr. Carlton Keyes MD Attending Provider Active S tart: May 26, 2025 Dr. Carlton Keyes MD Referring Provider Active S tart: May 26, 2025 Team Status: Inactive Member Role/Relationship Status Dates Dr. Lee Mathews MD Primary Care Provider Acti ve Start: May 27, 2025 End: May 27, 2025 Dr. eLe Mathews MD Referring Provider Active Start: May 27, 2025 End: May 27, 2025 FELICIA Soto Attending Provider Active St art: May 27, 2025 End: May 27, 2025 Team Status: Inactive Member Role/Relationship Status Dates Dr. Lee Mathews MD Primary Care Provider Acti ve Start: May 27, 2025 End: May 27, 2025 Dr. Lee Mathews MD Referring Provider Active Start: May 27, 2025 End: May 27, 2025 FELICIA Soto Attending Provider Active St art: May 27, 2025 End: May 27, 2025 Team Status: Inactive Member Role/Relationship Status Dates Dr. Lee Mathews MD Primary Care Provider Acti ve Start: June 18, 2025 End: June 19, 2025 Dr. Carlton Keyes MD Attending Provider Active S tart: June 18, 2025 End: June 19, 2025 Dr. Carlton Keyes MD Referring Provider Active S tart: June 18, 2025 End: June 19, 2025 Team Status: Inactive Member Role/Relationship Status Dates Dr. Lee Mathews MD Primary Care Provider Acti ve Start: June 23, 2025 End: June 23, 2025 Shanti Fuentes PA, PA Attending Provider Active Start: June 23, 2025 End: June 23, 2025 Shanti Fuentes PA, PA Referring Provider Active Start: June 23, 2025 End: June 23, 2025 Team Status: Active Member Role/Relationship Status Dates Dr. Lee Mathews MD Primary Care Provider Acti ve Start: June 23, 2025 Dr. Carlton Keyes MD Attending Provider Active S tart: June 23, 2025 Shanti Fuentes PA, PA Referring Provider Active Start: June 23, 2025 Team Status: Active Member Role/Relationship Status Dates Dr. Lee Mathews MD Primary Care Provider Acti ve Start: June 30, 2025 Dr. Carlton Keyse MD Attending Provider Active S tart: June 30, 2025 Dr. Carlton Keyes MD Referring Provider Active S tart: June 30, 2025 Team Status: Inactive Member Role/Relationship Status Dates Dr. Lee Mathews MD Primary Care Provider Acti ve Start: March 18, 2025 End: March 18, 2025 Dr. Lee Mathews MD Attending Provider Active Start: March 18, 2025 End: March 18, 2025 Dr. Lee Mathews MD Referring Provider Active Start: March 18, 2025 End: March 18, 2025 Team Status: Inactive Member Role/Relationship Status Dates Dr. Lee Mathews MD Primary [...] 2025 End: March 27, 2025 Dr. Krissy Feritas MD Other Provider Active Star t: March 20, 2025 End: March 27, 2025 Dr. Derrick Chacon MD Attending Provider Active Start: March 20, 2025 End: March 27, 2025 Dr. Stanley Craig MD Other Provider Active Star t: March 20, 2025 End: March 27, 2025 Team Status: Active Member Role/Relationship Status Dates Dr. Lee Mathews MD Primary [...] March 20, 2025 Team Status: Active Member Role/Relationship Status Dates Dr. Lee Mathews MD Primary Care Provider Acti ve Start: March 21, 2025 Dr. Krissy Freitas MD Attending Provider Active Start: March 21, 2025 Team Status: Active Member Role/Relationship Status Dates Dr. Lee Mathews MD Primary Care Provider Acti ve Start: March 21, 2025 Dr. Dae Mckeon MD Emergency Provider Active Start: March 21, 2025 Dr. Sophia Lowe MD Admit Provider Active St art: March 21, 2025 Dr. Sophia Lowe MD Other Provider Active St art: March 21, 2025 Dr. Stanley Craig MD Attending Provider Active Start: March 21, 2025 Dr. Stanley Craig MD Other Provider Active Star t: March 21, 2025 Team Status: Active Member Role/Relationship Status Dates Dr. Lee Mathews MD Primary [...] March 22, 2025 Team Status: Active Member Role/Relationship Status Dates Dr. Lee Mathews MD Primary [...] March 22, 2025 Team Status: Active Member Role/Relationship Status Dates Dr. Lee Mathews MD Primary [...] March 23, 2025 Team Status: Active Member Role/Relationship Status Dates Dr. Lee Mathews MD Primary [...] March 23, 2025 Team Status: Active Member Role/Relationship Status Dates Dr. Lee Mathews MD Primary Care Provider Acti ve Start: March 24, 2025 Dr. Carlton Keyes MD Attending Provider Active S tart: March 24, 2025 Team Status: Active Member Role/Relationship Status Dates Dr. Lee Mathews MD Primary [...] March 24, 2025 Team Status: Active Member Role/Relationship Status Dates Dr. Lee Mathews MD Primary [...] March 25, 2025 Team Status: Active Member Role/Relationship Status Dates Dr. Lee Mathews MD Primary [...] March 25, 2025 Team Status: Active Member Role/Relationship Status Dates Dr. Lee Mathews MD Primary [...] March 26, 2025 Team Status: Active Member Role/Relationship Status Dates Dr. Lee Mathews MD Primary [...] March 26, 2025 Team Status: Active Member Role/Relationship Status Dates Dr. Lee Mathews MD Primary [...] March 27, 2025 Team Status: Active Member Role/Relationship Status Dates Dr. Lee Mathews MD Primary [...] March 27, 2025 Team Status: Inactive Member Role/Relationship Status Dates Dr. Lee Mathews MD Primary Care Provider Acti ve Start: April 03, 2025 End: April 03, 2025 Dr. Lee Mathews MD Referring Provider Active Start: April 03, 2025 End: April 03, 2025 Ariane Perez PIANO REGULATOR, PIANO REGULATOR-C Attending Provider Active Start: April 03, 2025 End: April 03, 2025 Team Status: Inactive Member Role/Relationship Status Dates Dr. Lee Mathews MD Primary Care Provider Acti ve Start: April 03, 2025 End: April 03, 2025 Ariane Perez PIANO REGULATOR, PIANO REGULATOR-C Attending Provider Active Start: April 03, 2025 End: April 03, 2025 Ariane Perez PIANO REGULATOR, PIANO REGULATOR-C Referring Provider Active Start: April 03, 2025 End: April 03, 2025 Team Status: Inactive Member Role/Relationship Status Dates Dr. Lee Mathews MD Primary Care Provider Acti ve Start: May 01, 2025 End: May 01, 2025 Dr. Carlton Keyes MD Attending Provider Active S tart: May 01, 2025 End: May 01, 2025 Dr. Carlton Keyes MD Referring Provider Active S tart: May 01, 2025 End: May 01, 2025 Team Status: Active Member Role/Relationship Status Dates Dr. Lee Mathews MD Primary Care Provider Acti ve Start: May 01, 2025 Dr. Carlton Keyes MD Attending Provider Active S tart: May 01, 2025 Dr. Carlton Keyes MD Other Provider Active Start : May 01, 2025 Team Status: Inactive Member Role/Relationship Status Dates Dr. Lee Mathews MD Primary Care Provider Acti ve Start: May 05, 2025 End: May 05, 2025 Dr. Carlton Keyes MD Attending Provider Active S tart: May 05, 2025 End: May 05, 2025 Dr. Carlton Keyes MD Referring Provider Active S tart: May 05, 2025 End: May 05, 2025 Team Status: Active Member Role/Relationship Status Dates Dr. Lee Mathews MD Primary Care Provider Acti ve Start: May 05, 2025 Dr. Carlton Keyes MD Attending Provider Active S tart: May 05, 2025 Dr. Carlton Keyes MD Referring Provider Active S tart: May 05, 2025 Dr. Carlton Keyes MD Other Provider Active Start : May 05, 2025 Team Status: Active Member Role/Relationship Status Dates Dr. Lee Mathews MD Primary Care Provider Acti ve Start: May 05, 2025 Dr. Carlton Keyes MD Referring Provider Active S tart: May 05, 2025 Dr. Carlton Keyes MD Other Provider Active Start : May 05, 2025 Dr. Nigel Read DO Attending Provider Active S tart: May 05, 2025 Team Status: Inactive Member Role/Relationship Status Dates Dr. Lee Mathews MD Primary Care Provider Acti ve Start: May 12, 2025 End: May 12, 2025 Dr. Lee Mathews MD Referring Provider Active Start: May 12, 2025 End: May 12, 2025 Dr. Carlton Keyes MD Attending Provider Active S tart: May 12, 2025 End: May 12, 2025 Team Status: Inactive Member Role/Relationship Status Dates Dr. Lee Mathews MD Primary Care Provider Acti ve Start: May 19, 2025 End: May 19, 2025 Dr. Carlton Keyes MD Attending Provider Active S tart: May 19, 2025 End: May 19, 2025 Dr. Carlton Keyes MD Referring Provider Active S tart: May 19, 2025 End: May 19, 2025 Team Status: Inactive Member Role/Relationship Status Dates Dr. Lee Mathews MD Primary Care Provider Acti ve Start: May 27, 2025 End: May 27, 2025 Dr. Lee Mathews MD Referring Provider Active Start: May 27, 2025 End: May 27, 2025 FELICIA Soto Attending Provider Active St art: May 27, 2025 End: May 27, 2025 Team Status: Inactive Member Role/Relationship Status Dates Dr. Lee Mathews MD Primary Care Provider Acti ve Start: June 18, 2025 End: June 19, 2025 Dr. Carlton Keyes MD Attending Provider Active S tart: June 18, 2025 End: June 19, 2025 Dr. Carlton Keyes MD Referring Provider Active S tart: June 18, 2025 End: June 19, 2025 Team Status: Inactive Member Role/Relationship Status Dates Dr. Lee Mathews MD Primary Care Provider Acti ve Start: June 23, 2025 End: June 23, 2025 Shanti DUARTE, PA Attending Provider Active Start: June 23, 2025 End: June 23, 2025 Shanti DUARTE, PA Referring Provider Active Start: June 23, 2025 End: June 23, 2025 Team Status: Active Member Role/Relationship Status Dates Dr. Lee Mathews MD Primary Care Provider Acti ve Start: June 23, 2025 Dr. Carlton Keyes MD Attending Provider Active S tart: June 23, 2025 Shanti DUARTE, PA Referring Provider Active Start: June 23, 2025 Team Status: Active Member Role/Relationship Status Dates Dr. Lee Mathews MD Primary Care Provider Acti ve Start: July 02, 2025 Ariane Perez PIANO REGULATOR, PIANO REGULATOR-C Attending Provider Active Start: July 02, 2025 Ariane Perez PIANO REGULATOR, PIANO REGULATOR-C Referring Provider Active Start: July 02, 2025 Team Status: Active Member Role/Relationship Status Dates Dr. Lee Mathews MD Primary Care Provider Acti ve Start: July 02, 2025 Dr. Carlton Keyes MD Attending Provider Active S tart: July 02, 2025 Team Status: Active Member Role/Relationship Status Dates Dr. Lee Mathews MD Primary Care Provider Acti ve Start: July 02, 2025 Dr. Carlton Keyes MD Attending Provider Active S tart: July 02, 2025 Dr. Carlton Keyes MD Referring Provider Active S tart: July 02, 2025 Team Status: Active Member Role/Relationship Status Dates Dr. Lee Mathews MD Primary Care Provider Acti ve Start: July 03, 2025 Ariane Perez PIANO REGULATOR, PIANO REGULATOR-C Attending Provider Active Start: July 03, 2025 Team Status: Inactive Member Role/Relationship Status Dates Dr. Lee Mathews MD Primary Care Provider Acti ve Start: July 04, 2025 End: July 04, 2025 Dr. Lee Mathews MD Referring Provider Active Start: July 04, 2025 End: July 04, 2025 Ariane Perez PIANO REGULATOR, PIANO REGULATOR-C Attending Provider Active Start: July 04, 2025 End: July 04, 2025 Team Status: Inactive Member Role/Relationship Status Dates Dr. Lee Mathews MD Primary Care Provider Acti ve Start: July 02, 2025 End: July 02, 2025 Ariane Perez PIANO REGULATOR, PIANO REGULATOR-C Attending Provider Active Start: July 02, 2025 End: July 02, 2025 Ariane Perez PIANO REGULATOR, PIANO REGULATOR-C Referring Provider Active Start: July 02, 2025 End: July 02, 2025 Team Status: Active Member Role/Relationship Status Dates Dr. Lee Mathews MD Primary Care Provider Acti ve Start: July 03, 2025 Ariane Perez PIANO REGULATOR, PIANO REGULATOR-C Attending Provider Active Start: July 03, 2025 Team Status: Inactive Member Role/Relationship Status Dates Dr. Lee Mathews MD Primary Care Provider Acti ve Start: July 04, 2025 End: July 04, 2025 Dr. Lee Mathews MD Referring Provider Active Start: July 04, 2025 End: July 04, 2025 Ariane Perez PIANO REGULATOR, PIANO REGULATOR-C Attending Provider Active Start: July 04, 2025 End: July 04, 2025 Team Status: Active Member Role/Relationship Status Dates Dr. Lee Mathews MD Primary Care Provider Acti ve Start: July 09, 2025 Dr. Carlton Keyes MD Attending Provider Active S tart: July 09, 2025 Dr. Carlton Keyes MD Referring Provider Active S tart: July 09, 2025 Team Status: Inactive Member Role/Relationship Status Dates Dr. Lee Mathews MD Primary [...] March 27, 2025 Team Status: Active Member Role/Relationship Status Dates Dr. Lee Mathews MD Primary [...] March 20, 2025 Team Status: Active Member Role/Relationship Status Dates Dr. Lee Mathews MD Primary Care Provider Acti ve Start: March 21, 2025 Dr. Krissy Freitas MD Attending Provider Active Start: March 21, 2025 Team Status: Active Member Role/Relationship Status Dates Dr. Lee Mathews MD Primary Care Provider Acti ve Start: March 21, 2025 Dr. Dae Mckeon MD Emergency Provider Active Start: March 21, 2025 Dr. Sophia Lowe MD Admit Provider Active St art: March 21, 2025 Dr. Sophia Lowe MD Other Provider Active St art: March 21, 2025 Dr. Stanley Craig MD Attending Provider Active Start: March 21, 2025 Dr. Stanley Craig MD Other Provider Active Star t: March 21, 2025 Team Status: Active Member Role/Relationship Status Dates Dr. Lee Mathews MD Primary [...] March 22, 2025 Team Status: Active Member Role/Relationship Status Dates Dr. Lee Mathews MD Primary [...] March 22, 2025 Team Status: Active Member Role/Relationship Status Dates Dr. Lee Mathews MD Primary [...] March 23, 2025 Team Status: Active Member Role/Relationship Status Dates Dr. Lee Mathews MD Primary [...] March 23, 2025 Team Status: Active Member Role/Relationship Status Dates Dr. Lee Mathews MD Primary Care Provider Acti ve Start: March 24, 2025 Dr. Carlton Keyes MD Attending Provider Active S tart: March 24, 2025 Team Status: Active Member Role/Relationship Status Dates Dr. Lee Mathews MD Primary [...] March 24, 2025 Team Status: Active Member Role/Relationship Status Dates Dr. Lee Mathews MD Primary [...] March 25, 2025 Team Status: Active Member Role/Relationship Status Dates Dr. Lee Mathews MD Primary [...] March 25, 2025 Team Status: Active Member Role/Relationship Status Dates Dr. Lee Mathews MD Primary [...] March 26, 2025 Team Status: Active Member Role/Relationship Status Dates Dr. Lee Mathews MD Primary [...] March 26, 2025 Team Status: Active Member Role/Relationship Status Dates Dr. Lee Mathews MD Primary [...] March 27, 2025 Team Status: Active Member Role/Relationship Status Dates Dr. Lee Mathews MD Primary [...] March 27, 2025 Team Status: Inactive Member Role/Relationship Status Dates Dr. Lee Mathews MD Primary Care Provider Acti ve Start: April 03, 2025 End: April 03, 2025 Dr. Lee Mathews MD Referring Provider Active Start: April 03, 2025 End: April 03, 2025 Ariane Perez PIANO REGULATOR, PIANO REGULATOR-C Attending Provider Active Start: April 03, 2025 End: April 03, 2025 Team Status: Inactive Member Role/Relationship Status Dates Dr. Lee Mathews MD Primary Care Provider Acti ve Start: April 03, 2025 End: April 03, 2025 Ariane Perez PIANO REGULATOR, PIANO REGULATOR-C Attending Provider Active Start: April 03, 2025 End: April 03, 2025 Ariane Perez NP, PIANO REGULATOR-C Referring Provider Active Start: April 03, 2025 End: April 03, 2025 Team Status: Inactive Member Role/Relationship Status Dates Dr. Lee Mathews MD Primary Care Provider Acti ve Start: May 01, 2025 End: May 01, 2025 Dr. Carlton Keyes MD Attending Provider Active S tart: May 01, 2025 End: May 01, 2025 Dr. Carlton Keyes MD Referring Provider Active S tart: May 01, 2025 End: May 01, 2025 Team Status: Active Member Role/Relationship Status Dates Dr. Lee Mathews MD Primary Care Provider Acti ve Start: May 01, 2025 Dr. Carlton Keyes MD Attending Provider Active S tart: May 01, 2025 Dr. Carlton Keyes MD Other Provider Active Start : May 01, 2025 Team Status: Inactive Member Role/Relationship Status Dates Dr. Lee Mathews MD Primary Care Provider Acti ve Start: May 05, 2025 End: May 05, 2025 Dr. Carlton Keyes MD Attending Provider Active S tart: May 05, 2025 End: May 05, 2025 Dr. Carlton Keyes MD Referring Provider Active S tart: May 05, 2025 End: May 05, 2025 Team Status: Active Member Role/Relationship Status Dates Dr. Lee Mathews MD Primary Care Provider Acti ve Start: May 05, 2025 Dr. Carlton Keyes MD Attending Provider Active S tart: May 05, 2025 Dr. Carlton Keyes MD Referring Provider Active S tart: May 05, 2025 Dr. Carlton Keyes MD Other Provider Active Start : May 05, 2025 Team Status: Active Member Role/Relationship Status Dates Dr. Lee Mathews MD Primary Care Provider Acti ve Start: May 05, 2025 Dr. Carlton Keyes MD Referring Provider Active S tart: May 05, 2025 Dr. Carlton Keyes MD Other Provider Active Start : May 05, 2025 Dr. Nigel Read DO Attending Provider Active S tart: May 05, 2025 Team Status: Inactive Member Role/Relationship Status Dates Dr. Lee Mathews MD Primary Care Provider Acti ve Start: May 12, 2025 End: May 12, 2025 Dr. Lee Mathews MD Referring Provider Active Start: May 12, 2025 End: May 12, 2025 Dr. Carlton Keyes MD Attending Provider Active S tart: May 12, 2025 End: May 12, 2025 Team Status: Inactive Member Role/Relationship Status Dates Dr. Lee Mathews MD Primary Care Provider Acti ve Start: May 19, 2025 End: May 19, 2025 Dr. Carlton Keyes MD Attending Provider Active S tart: May 19, 2025 End: May 19, 2025 Dr. Carlton Keyes MD Referring Provider Active S tart: May 19, 2025 End: May 19, 2025 Team Status: Inactive Member Role/Relationship Status Dates Dr. Lee Mathews MD Primary Care Provider Acti ve Start: May 27, 2025 End: May 27, 2025 Dr. Lee Mathews MD Referring Provider Active Start: May 27, 2025 End: May 27, 2025 FELICIA Soto Attending Provider Active St art: May 27, 2025 End: May 27, 2025 Team Status: Inactive Member Role/Relationship Status Dates Dr. Lee Mathews MD Primary Care Provider Acti ve Start: June 18, 2025 End: June 19, 2025 Dr. Carlton Keyes MD Attending Provider Active S tart: June 18, 2025 End: June 19, 2025 Dr. Carlton Keyes MD Referring Provider Active S tart: June 18, 2025 End: June 19, 2025 Team Status: Inactive Member Role/Relationship Status Dates Dr. Lee Mathews MD Primary Care Provider Acti ve Start: June 23, 2025 End: June 23, 2025 Shanti Fuentes PA, PA Attending Provider Active Start: June 23, 2025 End: June 23, 2025 Shanti Fuentes PA, PA Referring Provider Active Start: June 23, 2025 End: June 23, 2025 Team Status: Active Member Role/Relationship Status Dates Dr. Lee Mathews MD Primary Care Provider Acti ve Start: June 23, 2025 Dr. Carlton Keyes MD Attending Provider Active S tart: June 23, 2025 Shanti Fuentes PA, PA Referring Provider Active Start: June 23, 2025 Team Status: Inactive Member Role/Relationship Status Dates Dr. Lee Mathews MD Primary Care Provider Acti ve Start: July 02, 2025 End: July 02, 2025 Ariane Perez PIANO REGULATOR, PIANO REGULATOR-C Attending Provider Active Start: July 02, 2025 End: July 02, 2025 Ariane Perez PIANO REGULATOR, PIANO REGULATOR-C Referring Provider Active Start: July 02, 2025 End: July 02, 2025 Team Status: Active Member Role/Relationship Status Dates Dr. Lee Mathews MD Primary Care Provider Acti ve Start: July 02, 2025 Dr. Carlton Keyes MD Attending Provider Active S tart: July 02, 2025 Team Status: Active Member Role/Relationship Status Dates Dr. Lee Mathews MD Primary Care Provider Acti ve Start: July 03, 2025 Ariane Perez PIANO REGULATOR, PIANO REGULATOR-C Attending Provider Active Start: July 03, 2025 Team Status: Inactive Member Role/Relationship Status Dates Dr. Lee Mathews MD Primary Care Provider Acti ve Start: July 04, 2025 End: July 04, 2025 Dr. Lee Mathews MD Referring Provider Active Start: July 04, 2025 End: July 04, 2025 Ariane Perez PIANO REGULATOR, PIANO REGULATOR-C Attending Provider Active Start: July 04, 2025 End: July 04, 2025 Team Status: Active Member Role/Relationship Status Dates Dr. Lee Mathews MD Primary Care Provider Acti ve Start: July 18, 2025 Dr. Carlton Keyes MD Attending Provider Active S tart: July 18, 2025 Dr. Carlton Keyes MD Referring Provider Active S tart: July 18, 2025 Team Status: Inactive Member Role/Relationship Status Dates Dr. Lee Mathews MD Primary Care Provider Acti ve Start: July 18, 2025 End: July 18, 2025 Dr. Isaias Rocha MD Emergency Provider Active S tart: July 18, 2025 End: July 18, 2025 Goals (unrecognized section and content) Goals may be documented in a n alternate sectionGoals may be documented in an alternate section (unrecognized sect ion and content) No Status Records Found INFORMATION SOURCE (unrecogn ized section and content) DATE CREATED AUTHOR 07/18/2025 [facility] FOR RECORDS PERTAINING TO PATIENTS WHO ARE [...] BE BASED ON THE PRIMARY CLINICAL RECORDS. [employer] provides no warranty or guarantee of the accuracy or completeness of information in this document.
--- NOTE | 2025-07-19 22:05 | EKG12_ITS ---
Test Reason : DIZZY Blood Pressure : */* mmHG Vent. Rate : 88 BPM Atrial Rate : 88 BPM P-R Int : 116 ms QRS Dur : 96 ms QT Int : 398 ms P-R-T Axes : 16 -10 75 degrees QTcB Int : 481 ms Critical Test Result: Arrhythmia Sinus rhythm with Premature supraventricular complexes and with frequent and consecutive Premature ventricular complexes Nonspecific ST abnormality QTcB >= 480 msec Abnormal ECG Confirmed by Madhu Bautista ([id number]), acquisitions editor ALIN AIKEN ([id number]) on 07/22/2025 10:33:31 AM Referred By: Confirmed By: Madhu Bautista
[2025-07-19] MEDS: 0.9% Normal Saline (1000mL) 1,000 ML 999 ML IV (22:11)
--- NOTE | 2025-07-19 22:15 | RAD_ITS ---
PROCEDURE: CHEST 1 VIEW (PORTABLE) 07/19/2025 REASON FOR EXAM: CHEST PAIN TECHNIQUE: Frontal view of the chest. COMPARISON: 07/18/2020 FINDINGS: Hardware: None. Heart: Heart size is mildly enlarged. Lungs: Mild diffuse pulmonary vascular congestion. No definite pneumothorax or sizable pleural effusion. Bones: The bones are unremarkable. RAD/Chest 1 View (Portable) IMPRESSION: Mild cardiomegaly and mild pulmonary vascular congestion. Reading [facility]
[2025-07-19 22:16] LABS: Hematocrit 44.3 % (40-54); Hemoglobin 15.2 g/dL (13.0-16.5); Immature Granulocytes Count 0.020 X10^3/uL (0.0-0.0); Mean Corp Hgb Conc 34.3 g/dL (32-36); Mean Corpuscular Volume 94.1 fL (80-94); Mean Platelet Vol. 9.2 fl (6.2-12.0); NRBC Flagged by Analyzer 0 % (0-5); Platelet Count 145 K/mm3 (150-450); RBC Distribution Width CV 14.0 % (11.6-14.6); RBC Distribution Width SD 48.9 fl (35.1-43.9); Red Blood Count 4.71 M/mm3 (4.6-6.2); White Blood Count 8.7 K/mm3 (4.4-11.0)
[2025-07-19 22:28] VITALS: BP 122/82; PULSE 57; RESP 14; O2SAT 96
--- NOTE | 2025-07-19 22:39 | EX.ED.DYSGE1 ---
HPI History of Present Illness Chief Complaint: Palpitations Informant: patient Narrative Narrative: Patient is a 70-year-old male with history of heart failure with reduced ejection fraction, PVCs, atrial fibrillation (on Eliquis and cardioverted yesterday) presenting with lightheadedness, low heart rate and elevated blood pressure. Patient states when he got home from being in the ER yesterday after his cardioversion he went to bed around 8 PM and slept for 12 hours. He got up a couple times at night to urinate which is typical for him (has a history of enlarged prostate). Throughout the day he continues to feel generally weak and a little lightheaded. He would check his vitals and his blood pressure was 140/77 and his heart rate was 58. At dinnertime he started to feel anxious. His blood pressure was 147/106 and his heart rate was 48. He drinks 16 ounce glass of ice water with some improvement of his heart rate. He then came to the ER for further evaluation. He denies any chest pain or palpitations. Denies any fever or chills. No acute GI or symptoms. Denies difficulty breathing. Is not sure if he is dehydrated that is causing his symptoms. Came in for further evaluation [facility] Medical History Cardiac LV ejection fraction 10-20% History of COPD PAF (paroxysmal atrial fibrillation) CKD (chronic kidney disease), stage II Thrombocytopenia COPD (chronic obstructive pulmonary disease) Morbid obesity HLD (hyperlipidemia) HTN (hypertension) Tobacco use Anxiety and depression Cancer Home Medications ?Medication ?Instructions ?Recorded ?Last Taken ?Type apixaban 5 mg tablet (Eliquis) 5 mg PO BID blood thinner #60 tabs 04/03/25 05/05/25 Rx empagliflozin 10 mg tablet 10 mg PO DAILY #30 tabs 04/03/25 Unknown Rx (Jardiance) spironolactone 25 mg tablet 25 mg PO DAILY #30 tabs 04/03/25 Unknown Rx metoprolol tartrate 50 mg tablet 50 mg PO BID #60 tabs 05/12/25 Unknown Rx lisinopril 5 mg tablet 5 mg PO QDAY #30 tabs 05/30/25 Unknown Rx furosemide 40 mg tablet 40 mg PO DAILY #90 tabs 06/19/25 Unknown Rx Allergy/AdvReac Type Severity Reaction Status Date / Time sertraline (From Zoloft) Allergy Other Verified 07/19/25 21:25 Family History Father History of blood clots Lupus Bowel disease Colon cancer Skin cancer CVA (cerebral vascular accident) Mother Hypertension Surgical History History of appendectomy Social History household members: spouse Smoking Status: Current every day smoker tobacco type: cigars alcohol intake: never substance use type: does not use additional social history: DOES USE ASPIRIN ROS ROS ED Constitutional Constitutional ED: Reports other Details: Lightheaded ; Denies chills, fever(s), sweats or weight loss ENT ENT ED: Denies sore throat Cardiovascular Cardiovascular: Denies chest pain, palpitations or racing heartbeat Respiratory/Chest Respiratory/Chest: Denies cough or dyspnea Gastrointestinal Gastrointestinal: Denies abdominal pain, nausea or vomiting Genitourinary Genitourinary ED: Reports urinary frequency and other Details: Chronic associated with BPH Musculoskeletal Musculoskeletal: Denies arthralgias or myalgias Neurologic Neurologic: Reports weakness; Denies paresthesias Psychiatric Psychiatric: Reports anxiety; Denies depression Hematologic/Lymphatic Hematologic/Lymphatic: Reports easy bleeding, easy bruising and other Details: On Eliquis EXAM Physical Exam Const Vital Signs: 07/19/25 21:25 07/19/25 21:35 07/19/25 22:07 Temperature 97.2 F L Temperature Source Temporal Pulse Rate 35 L Pulse Rate [Lying] Pulse Rate [Sitting (for 1 minute prior to obtaining)] Pulse Rate [Standing (for 1 minute prior to obtaining)] Respiratory Rate 20 H Respiratory Effort Normal Blood Pressure 144/97 H Blood Pressure [Lying] Blood Pressure [Sitting (for 1 minute prior to obtaining)] Blood Pressure [Standing (for 1 minute prior to obtaining)] Blood Pressure Mean 112 Blood Pressure Mean [Lying] Blood Pressure Mean [Sitting (for 1 minute prior to obtaining)] Blood Pressure Mean [Standing (for 1 minute prior to obtaining)] Pulse Ox 98 Oxygen Delivery Method Room Air Room Air 07/19/25 22:28 07/19/25 23:00 07/19/25 23:27 Temperature Temperature Source Pulse Rate 57 L 58 L Pulse Rate [Lying] 56 L Pulse Rate [Sitting (for 1 minute prior to obtaining)] 68 Pulse Rate [Standing (for 1 minute prior to obtaining)] 68 Respiratory Rate 14 18 Respiratory Effort Blood Pressure 122/82 H 119/83 H Blood Pressure [Lying] 105/77 Blood Pressure [Sitting (for 1 minute prior to obtaining)] 109/81 H Blood Pressure [Standing (for 1 minute prior to obtaining)] 102/79 Blood Pressure Mean 95 95 Blood Pressure Mean [Lying] 86 Blood Pressure Mean [Sitting (for 1 minute prior to obtaining)] 90 Blood Pressure Mean [Standing (for 1 minute prior to obtaining)] 86 Pulse Ox 96 97 Oxygen Delivery Method Room Air Room Air 07/20/25 00:00 07/20/25 00:22 07/20/25 00:24 Temperature 98 F 98 F Temperature Source Oral Pulse Rate 57 L 56 L 56 L Pulse Rate [Lying] Pulse Rate [Sitting (for 1 minute prior to obtaining)] Pulse Rate [Standing (for 1 minute prior to obtaining)] Respiratory Rate 17 17 18 Respiratory Effort Blood Pressure 119/84 H 119/84 H 119/84 H Blood Pressure [Lying] Blood Pressure [Sitting (for 1 minute prior to obtaining)] Blood Pressure [Standing (for 1 minute prior to obtaining)] Blood Pressure Mean 95 95 95 Blood Pressure Mean [Lying] Blood Pressure Mean [Sitting (for 1 minute prior to obtaining)] Blood Pressure Mean [Standing (for 1 minute prior to obtaining)] Pulse Ox 98 98 98 Oxygen Delivery Method Room Air Room Air Positive well nourished and well developed General Appearance ED: well developed and NAD HEENT Reports moist mucous membranes Eyes PERRL Neck supple and no JVD Chest Wall inspection of chest normal and palpation of chest normal Resp normal respiratory effort and clear to auscultation bilaterally Cardio regular rhythm and no murmurs Rate: bradycardia GI normal to inspection, nondistended, normoactive bowel sounds and non-tender Extremity normal to inspection Neuro oriented x3 Sensorium / Orientation: alert Motor Exam: Negative for general weakness Psych mental status grossly normal Skin no rashes or lesions noted and no wounds MDM MDM MDM Narrative Medical decision making narrative: Patient is evaluated for lightheadedness and bradycardia at home. Differential includes cardiac arrhythmia, PVCs, dehydration, electrolyte derangement, thyroid abnormality and ACS. He was cardioverted yesterday. He is chronically anticoagulated on Eliquis since been compliant. Have a lower suspicion for pulmonary emboli. He does tell me that he takes his weight regularly and he has had a 3 pound weight gain recently however prior to that he did tell me he was feeling dehydrated and requesting IV fluids. Most recent echocardiogram from 07/02/2025 showed normal EF of 55% with no regional wall motion abnormalities. He has mild to moderately dilated aortic root. Initially patient has significant arrhythmia with frequent PVCs (as many as 5 in a row). Without the PVCs he is bradycardic. I suspect he is symptomatic from that. After IV fluids he converts into normal sinus rhythm however and his PVCs resolved. Chest x-ray viewed by myself as well as radiology does show findings of pulmonary vascular congestion. This is mildly worsening compared to his chest x-ray yesterday. He did have some transient hypotension after Cardizem yesterday and I suspect received IV fluids. It is possible that he is not fluid overloaded. Because of this he is ambulated and dropped down to 85%. He is relatively asymptomatic but notes he is a little lightheaded during this. He does come up relatively quickly and does not appear to be any respiratory distress. I did discuss the case with Dr. Freitas, cardiology, who recommends IV diuresis and telemetry monitoring as he likely will require some medication adjustments. At this time does not think he needs transferred for pacemaker/defibrillator. Will speak with hospitalist for admission. Patient is agreeable. Is ordered 40 mg IV Lasix in the emergency room Lab Data Attestation: I reviewed the patient's lab results. Labs: Laboratory Results - last 24 hr 07/19/25 07/19/25 21:33 23:26 WBC 8.7 RBC 4.71 Hgb 15.2 Hct 44.3 MCV 94.1 H MCH 32.3 H MCHC 34.3 RDW Std Deviation 48.9 H RDW Coeff of Hair 14.0 Plt Count 145 L MPV 9.2 Immature Gran % (Auto) 0.200 Neut % (Auto) 47.9 Lymph % (Auto) 40.5 [place] % (Auto) 9.9 Eos % (Auto) 1.3 Baso % (Auto) 0.2 Absolute Neuts (auto) 4.1 Absolute Lymphs (auto) 3.51 Nucleated RBC % 0 Sodium 133 Potassium 4.7 Chloride 95 L Carbon Dioxide 26.2 Anion Gap 12 BUN 12 Creatinine 0.90 Estim Creat Clear Calc 86.89 Est GFR (MDRD) Non-Af 91 BUN/Creatinine Ratio 13.2 Glucose 107 H Calcium 8.8 Magnesium 2.4 H Troponin T High Sens 22 Troponin T Hi Sens 2 Hr 22 NT pro BNP II 422 TSH 1.080 Radiography Diagnostic Testing: Clinical Impression(s) from Imaging Studies Chest X-Ray 07/19/25 22:15 IMPRESSION: Mild cardiomegaly and mild pulmonary vascular congestion. [facility] Discharge Plan Dx/Rx/DC Orders Clinical Impression: Frequent PVCs, Symptomatic bradycardia, Hypoxia, Chronic anticoagulation Disposition Disposition: Acute Care Hospital [facility]
[2025-07-19 22:41] LABS: Anion Gap 12 (5-15); BUN 12 mg/dL (4-19); BUN/Creat Ratio 13.2 RATIO (10-20); Calcium,Total 8.8 mg/dL (7.6-11.0); Carbon Dioxide 26.2 mmol/L (21.0-32.0); Chloride 95 mmol/L (98-108); Estimated Creatinine Clearance 86.89 ml/min (50-250); Glucose 107 mg/dL (70-99); Magnesium 2.4 mg/dL (1.5-2.2); Potassium 4.7 mmol/L (3.3-5.1); Troponin T High Sensitivity 22 ng/L (<=22)
[2025-07-19 23:00] VITALS: BP 119/83; PULSE 58; RESP 18; O2SAT 97
[2025-07-19 23:27] VITALS: BP 102/79; BP 105/77; BP 109/81; PULSE 56; PULSE 68
[2025-07-19 23:38] VITALS: O2SAT 95
[2025-07-20] VITALS (11 sets, daily range): BP systolic 100–141; BP diastolic 63–88; PULSE 55–74; RESP 17–18; TEMP 36.2–36.6; O2SAT 94–98; BMI 33.5
[2025-07-20 00:28] LABS: Troponin T High Sens 2 HR 22 ng/L (<=22)
[2025-07-20 00:40] LABS: Pro- Brain NATRIURETIC PEPTIDE 422 pg/mL (<=900)
--- NOTE | 2025-07-20 01:10 | PCM.HP.STD ---
[facility] - General General Date of Admission: 07/20/25 Date of Service: 07/20/25 Chief Complaint: Lightheadedness. [facility] Narrative KELVIN LEE, is a 70 M with a past medical history of essential hypertension; on lisinopril, furosemide, spironolactone and metoprolol twice daily, obesity; with BMI of 35 this admission, tobacco abuse; with subsequent COPD, chronic moderate thrombocytopenia; with range from 83K-145K since February 2025, history of depression with anxiety; currently not on treatment, history of appendectomy (2010), PAF; on apixaban, history of chronic systolic CHF; with LVEF ~10-20% treated with empagliflozin with improvement to LVEF ~55% with mildly dilated aortic root (07/02/2025) will, history of frequent PVC's and history of PAF; with RVR causing visit to this ER yesterday with patient undergoing DCCV after he experienced transient hypotension attributed to diltiazem prior to being sent home who now re-presents to [facility] ER complaining of lightheadedness. Mr. Lee reports he got home from the ER yesterday after his cardioversion and went to bed around 8 PM and slept for 12 hours except for when he was awakened with need to urinate. Then today he noted feeling generally weak and lightheaded so he checked his vital signs and noted his blood pressure was 140/77 mmHg and his heart rate was 58 bpm. By dinnertime he began to feel escalating anxiety with his heart rate dropping to ~48 bpm so he drank 16 ounce a glass of ice water with some improvement of his heart rate with patient suspecting he may have been dehydrated with generalized weakness which caused him to come in for further evaluation and treatment. He denies associated fever, chills, runny nose, sore throat, ear pain, chest pain, palpitations, heart racing, shortness of breath, cough, abdominal pain, nausea, vomiting, diarrhea, constipation, dysuria, hematuria, headache, focal neurologic deficits or rash. In the ER patient was noted to have symptomatic bradycardia of 35 bpm with frequent PVCs present on admission with patient improving after administration of IV fluids but was noted to have an oxygen saturation of ~85% with ambulation with CXR that revealed mild cardiomegaly and mild pulmonary vascular congestion with a corresponding normal-range NT pro-BNP II of 422 pg/mL with otherwise unremarkable laboratory studies and vital signs except for moderate Thrombocytopenia 145K present on admission which is at the upper end of his recent normal range. The ER physician then spoke to the glazing machine operator on-call who recommends IV diuresis and telemetry overnight as he will likely require medication adjustments. The patient was then admitted to the PCU for ongoing care for status is expected to extend beyond 2 midnights. [facility] Medical History (Updated 07/20/25 @ 03:[address] Stanley Gonzalez DO) Anxiety Atrial fibrillation Congestive heart failure (CHF) Cardiac LV ejection fraction 10-20% History of COPD PAF (paroxysmal atrial fibrillation) CKD (chronic kidney disease), stage II Thrombocytopenia COPD (chronic obstructive pulmonary disease) Morbid obesity HLD (hyperlipidemia) HTN (hypertension) Tobacco use Anxiety and depression Cancer Home Medications ?Medication ?Instructions ?Recorded ?Last Taken ?Type apixaban 5 mg tablet (Eliquis) 5 mg PO BID blood thinner #60 tabs 04/03/25 05/05/25 Rx empagliflozin 10 mg tablet 10 mg PO DAILY #30 tabs 04/03/25 Unknown Rx (Jardiance) spironolactone 25 mg tablet 25 mg PO DAILY #30 tabs 04/03/25 Unknown Rx metoprolol tartrate 50 mg tablet 50 mg PO BID #60 tabs 05/12/25 Unknown Rx lisinopril 5 mg tablet 5 mg PO QDAY #30 tabs 05/30/25 Unknown Rx furosemide 40 mg tablet 40 mg PO DAILY #90 tabs 06/19/25 Unknown Rx Allergy/AdvReac Type Severity Reaction Status Date / Time sertraline (From Zoloft) Allergy Other Verified 07/19/25 21:25 Family History Father History of blood clots Lupus Bowel disease Colon cancer Skin cancer CVA (cerebral vascular accident) Mother Hypertension Surgical History History of appendectomy Social History household members: spouse Smoking Status: Current every day smoker tobacco type: cigars alcohol intake: never substance use type: does not use additional social history: DOES USE ASPIRIN ROS ROS Narrative Review of Systems: Constitutional: Patient admits to lightheadedness but he denies fever or chills. Eyes: Patient denies change in vision or discharge from eyes. ENT: Patient denies runny nose, sore throat or ear pain. Resp: Patient denies shortness of breath or cough. CV: Patient admits to lightheadedness as per HPI and seem to coincide with his bradycardia complicated by PVCs but he denies chest pain, palpitations or lower extremity edema. GI: Patient denies abdominal pain, nausea, vomiting, diarrhea or constipation. : Patient admits to urinary frequency but he denies dysuria or hematuria. MSK: Patient admits to generalized weakness but he denies arthralgias or myalgias. Skin: Patient denies rash, abscess, wounds or jaundice. Psych: Patient admits to escalating anxiety amplified by his recent lightheadedness of bradycardia but he denies SI or HI. Neuro: Patient denies headache, paresthesias or focal neurologic deficits. Allergy: Patient denies lip swelling, tongue swelling or urticaria. Hematology: Patient admits to easy bleeding and easy bruisability on apixaban. Endocrinology: Patient denies polydipsia, polyphagia or heat/cold intolerance. 14 point ROS otherwise negative except for positives noted above in HPI. Vital Signs Vital Signs Vital Signs: 07/19/25 21:25 07/19/25 21:35 07/19/25 22:07 Temperature 97.2 F L Temperature Source Temporal Pulse Rate 35 L Pulse Rate [Lying] Pulse Rate [Sitting (for 1 minute prior to obtaining)] Pulse Rate [Standing (for 1 minute prior to obtaining)] Respiratory Rate 20 H Respiratory Effort Normal Blood Pressure 144/97 H Blood Pressure [Lying] Blood Pressure [Sitting (for 1 minute prior to obtaining)] Blood Pressure [Standing (for 1 minute prior to obtaining)] Blood Pressure Mean 112 Blood Pressure Mean [Lying] Blood Pressure Mean [Sitting (for 1 minute prior to obtaining)] Blood Pressure Mean [Standing (for 1 minute prior to obtaining)] Pulse Ox 98 Oxygen Delivery Method Room Air Room Air 07/19/25 22:28 07/19/25 23:00 07/19/25 23:27 Temperature Temperature Source Pulse Rate 57 L 58 L Pulse Rate [Lying] 56 L Pulse Rate [Sitting (for 1 minute prior to obtaining)] 68 Pulse Rate [Standing (for 1 minute prior to obtaining)] 68 Respiratory Rate 14 18 Respiratory Effort Blood Pressure 122/82 H 119/83 H Blood Pressure [Lying] 105/77 Blood Pressure [Sitting (for 1 minute prior to obtaining)] 109/81 H Blood Pressure [Standing (for 1 minute prior to obtaining)] 102/79 Blood Pressure Mean 95 95 Blood Pressure Mean [Lying] 86 Blood Pressure Mean [Sitting (for 1 minute prior to obtaining)] 90 Blood Pressure Mean [Standing (for 1 minute prior to obtaining)] 86 Pulse Ox 96 97 Oxygen Delivery Method Room Air Room Air 07/20/25 00:00 07/20/25 00:22 07/20/25 00:24 Temperature 98 F 98 F Temperature Source Oral Pulse Rate 57 L 56 L 56 L Pulse Rate [Lying] Pulse Rate [Sitting (for 1 minute prior to obtaining)] Pulse Rate [Standing (for 1 minute prior to obtaining)] Respiratory Rate 17 17 18 Respiratory Effort Blood Pressure 119/84 H 119/84 H 119/84 H Blood Pressure [Lying] Blood Pressure [Sitting (for 1 minute prior to obtaining)] Blood Pressure [Standing (for 1 minute prior to obtaining)] Blood Pressure Mean 95 95 95 Blood Pressure Mean [Lying] Blood Pressure Mean [Sitting (for 1 minute prior to obtaining)] Blood Pressure Mean [Standing (for 1 minute prior to obtaining)] Pulse Ox 98 98 98 Oxygen Delivery Method Room Air Room Air Weight Weight: 230 lb 2.601 oz Body Mass Index (BMI) 34.9 Physical Exam Const alert, oriented x3, no apparent distress, average body habitus and healthy appearing General Appearance: cooperative HEENT normocephalic, head/scalp atraumatic, hearing grossly normal bilaterally and moist oral mucous membranes Eyes PERRL, EOMs intact bilaterally and conjunctivae normal Neck no lymphadenopathy, supple and no JVD Resp normal respiratory effort, no retractions, no use of accessory muscles and clear to auscultation bilaterally Cardio regular rate and regular rhythm Cardio Narrative: Bradycardia at ~55 bpm with frequent PVC's noted. GI normal to inspection, nondistended, normoactive bowel sounds, soft to palpation, non-tender and non-distended GI Narrative: Obese. Extremity normal to inspection, full ROM and no clubbing, cyanosis or edema Skin Skin Narrative: Patient has evidence of rash, abscess, wounds or jaundice. Neuro oriented x3, CN's II-XII intact bilaterally, moves all extremities and no focal motor deficits Sensorium / Orientation: awake, alert, oriented to person, oriented to place and oriented to time Speech: speech normal Psych affect normal Results Medical Records Data Attestation: I reviewed the patient's medical records Lab / Micro Data Attestation: I reviewed the patient's lab results. 07/19/25 21:33 07/19/25 21:33 Labs: Laboratory Results - last 24 hr 07/19/25 21:33: WBC 8.7, RBC 4.71, Hgb 15.2, Hct 44.3, MCV 94.1 H, MCH 32.3 H, MCHC 34.3, RDW Std Deviation 48.9 H, RDW Coeff of Hair 14.0, Plt Count 145 L, MPV 9.2, Immature Gran % (Auto) 0.200, Neut % (Auto) 47.9, Lymph % (Auto) 40.5, [place] % (Auto) 9.9, Eos % (Auto) 1.3, Baso % (Auto) 0.2, Absolute Neuts (auto) 4.1, Absolute Lymphs (auto) 3.51, Nucleated RBC % 0, Sodium 133, Potassium 4.7, Chloride 95 L, Carbon Dioxide 26.2, Anion Gap 12, BUN 12, Creatinine 0.90, Estim Creat Clear Calc 86.89, Est GFR (MDRD) Non-Af 91, BUN/Creatinine Ratio 13.2, Glucose 107 H, Calcium 8.8, Magnesium 2.4 H, Troponin T High Sens 22, TSH 1.080 07/19/25 23:26: Troponin T Hi Sens 2 Hr 22, NT pro BNP II 422 Imaging Radiology Impression Chest X-Ray 07/19/25 22:15 IMPRESSION: Mild cardiomegaly and mild pulmonary vascular congestion. Reading Location: [facility] Assessment & Plan Assessment/Plan (1) Symptomatic bradycardia: (2) Frequent PVCs: (3) Lightheadedness: (4) Hypoxia: (5) Essential hypertension: (6) Adverse drug reaction: QUALIFIERS: Encounter type: initial encounter Qualified Code(s): T50.905A - Adverse effect of unspecified drugs, medicaments and biological substances, initial encounter (7) Anxiety in acute stress reaction: (8) PAF (paroxysmal atrial fibrillation): (9) History of cardioversion: (10) Obesity (BMI 30-39.9): (11) History of COPD: (12) Thrombocytopenia: PLAN: Plan 1. Symptomatic bradycardia of 35 bpm with frequent PVCs present on admission causing Lightheadedness with patient improving after administration of IV fluids - Admit to PCU. Hold metoprolol. 2. Hypoxia with oxygen saturation of ~85% with ambulation with CXR that revealed mild cardiomegaly and mild pulmonary vascular congestion with a corresponding normal-range NT pro-BNP II of 422 pg/mL complicating #1 - Patient treated with IV furosemide in the ER which will be continued as per glazing machine operator's recommendations. 3. Essential hypertension; on lisinopril, furosemide, spironolactone and metoprolol twice daily with suspected Adverse Drug Reaction to beta-blockade underlying #1 & #2 - Continue diuretics and lisinopril but hold metoprolol in an effort to minimize risk of recurrent symptomatic bradycardia. 4. History of depression with anxiety; currently not on treatment - Acute anxiety likely triggered by #1. Give low-dose alprazolam for breakthrough symptoms. 5. History of PAF; with RVR causing visit to ER yesterday with patient undergoing DCCV after he experienced transient hypotension attributed to diltiazem prior to being sent home adding to the medical complexity of #1 - #4 - Noted. 6. History of chronic systolic CHF; with LVEF ~10-20% treated with empagliflozin with improvement to LVEF ~55% with mildly dilated aortic root (07/02/2025) - Noted. 7. Obesity; with BMI of 35 this admission adding to the burden of disease outlined from #1 - #5 - Weight loss will be recommended. Normal TSH of 1.08 noted on admission. This complicates his case and may hamper recovery. 8. Chronic Tobacco abuse; with subsequent COPD adding to the pathology of #1 - #7 - Tobacco Cessation will be strongly encouraged with Nicotine patch offered to control cravings. 9. Persistent moderate Thrombocytopenia 145K present on admission which is at the upper end of his recent normal range - Stable. 10. History of appendectomy (2010) - Noted for the sake of completeness. 11. DVT prophylaxis - Patient already on apixaban for #5 which will be continued. Total time: Approximately (but not less than) 75 minutes. Charges/Coding Visit Charges Inpatient E&M: 43122 Init Hosp L3
--- OUTSIDE RECORDS SUMMARY | 2025-07-20 02:05 | XMS RPT_ITS | CCD ---
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 Howard Primary Care Provider Bisi DENTON, Dr. Howard Attending Provider Bisi DENTON, Dr. Howard Referring Provider Mike DENTON, Dr. Pearl Emergency Provider Chrissy DENTON, Dr. Sophia oRberson Admit Provider Chrissy DENTON, Dr. Sophia Roberson [...] Dr. Krissy Freitas MD Attending Provider Dr. Cartlon Keyes MD Referring Provider Stephy DENTON, Dr. Vincent Other Provider Dr. Nigel Read DO Attending Provider Mihai Salmon Attending Provider Shanti Clements Attending Provider [phone] Shanti Clements Referring Provider [phone] Bisi DENTON, Dr. Howard Primary Care Provider Bisi DENTON, Dr. Howard Attending Provider Bisi DENTON, Dr. Howard Referring Provider Stephy, Carlton Referring Unavailable Stephy, Carlton Attending Unavailable [facility] Unavailable Shanti Clements Referring Unavail able Shanti Clements Attending Unavail able [facility] Unavailable Chris DATA REPORTING ANALYST, Ariane Referring Unavailable Chris DATA REPORTING ANALYST, Ariane Attending Unavailable [facility] Unavailable Stephy, [place] Consulting Unavailable Stephy, Carlton Attending Unavailable [facility], [facility] Unavailable Chris DATA REPORTING ANALYST, Ariane Referring Unavailable Chris DATA REPORTING ANALYST, Ariane Attending Unavailable [facility] Primary Care Unavailable Stephy, Carlton Referring Unavailable Stephy, Houston Attending Unavailable [facility] Primary Care Unavailable [facility] Primary Care Unavailable [place], [place] Attending Unavailable [place], [facility], [facility] Referring Unavailable Oswaldo, Derrick Attending Unavailable [facility] Primary Care Unavailable White, Sophia L Consulting Unavailable White, Sophia L Admitting Unavailable Belal, Farouk Consulting Unavailable Kittoe, Stanley Consulting Unavailable Stephy, Houston Referring Unavailable Stephy, Carlton Attending Unavailable [facility], [facility] Unavailable [place], [facility] Unavailable Belal, Farouk Attending Unavailable Chris DATA REPORTING ANALYST, Ariane Attending Unavailable Ranney, Christopher Referring Unavailable [place], [facility] Unavailable Stephy, Houston Consulting Unavailable Stephy, Carlton Referring Unavailable Stephy, Houston Attending Unavailable [facility], [facility] Unavailable Stephy, Carlton Consulting Unavailable Stephy, Houston Referring Unavailable Nigel Read Attending Unavailable [place], [facility] Unavailable White, Sophia L Admitting Unavailable Oswaldo, Derrick Attending Unavailable White, Sophia L Consulting Unavailable [place], [facility], [place] Primary Care Unavailable Belal, Farouk Consulting Unavailable Kittoe, Stanley Consulting Unavailable Derrick Chacon Consulting Unavailable Krissy Freitas Attending Unavailable Stephy, Houston Attending Unavailable Stephy, Houston Referring Unavailable [place], [facility] Unavailable Isaias Rocha Attending Unavailable [place], [place] Primary Care Unavailable [place], [facility] Primary Care Unavailable White, Sophia L Consulting Unavailable White, Sophia L Admitting Unavailable White Sophia L Attending Unavailable Stanley Craig Attending Unavailable [place], [facility] Unavailable Ranney, Christopher Attending Unavailable [place], [facility], [place] Referring Unavailable [place], [place] Primary Care Unavailable Ranney, Christopher Attending Unavailable [place], [facility], [place] Referring Unavailable Madhu Bautista Attending Unavailable Stephy, Houston Attending Unavailable Stephy, Houston Referring Unavailable [place], [facility] Primary Care Unavailable Stephy, Carlton Attending Unavailable [place], [place] Primary Care Unavailable Stephy, Houston Attending Unavailable Shanti Clements Referring Unavail able [place], [place] Primary Care Unavailable Stephy, [place] Attending Unavailable [facility], [facility] Primary Care Unavailable Chris MARIE, Ariane Attending Unavailable [place], [place] Primary Care Unavailable Stephy, Houston Attending Unavailable [place], [facility], [place] Referring Unavailable [place], [place] Primary Care Unavailable [facility], [facility] Referring Unavailable Mihai Rodriguez Attending Unavailable [facility], [facility] Primary Care Unavailable Chris DATA REPORTING ANALYST, Ariane Attending Unavailable [place], [place] Primary Care Unavailable [place], [facility], [place] Referring Unavailable Bisi DENTON, Dr. Howard Primary Care Provider Dr. Lee Mathews MD Referring Provider [phone] Dr. Isaias Rocha MD Emergency Provider [phone] Allergies Allergy Classification Reported Allergen(s) Allergy Type Date of Onset Reaction(s) Facility (15 sources) Sertraline Drug Allergy 11-13-2021 Other [facility] Comment on above: CP AND SOB (1 source) Sertraline Drug Allergy 07-18-2025 [facility] Repository Medications Current Medications Medication Drug Class(es) [...] NEEDED 20 3 July 02, 2018 9:35am [id number] 200 actuat albuterol 0.09 mg/actuat metered dose [...] 4:29pm docusate sodium 50 mg / sennosides, correction 8.6 mg oral tablet (13 sources) Start: [...] source) Long-term current use of anticoagulant; 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] 07-18-2025 Episodic Other [...] Auto (Unsp spec) [#/Vol] 3.41 10*3/uL 0.83-4.51 [facility] Absolute neutrophil countOrd ered By: ED PROVIDER on 07-18-2025 Neutrophils (Bld) [#/Vol] 4.6 10*3/uL 2.0-7.7 [facility] Anion gap in Serum or Plasma Ordered By: Isaias Rocha on 07-18-2025 Anion gap [Moles/Vol] 11 mmol/L - [facility] Automated lymphocyte count a s percentage of total leukocytesOrdered By: ED PROVIDER on 07-18-2025 Lymphocytes/100 WBC Auto (Unsp spec) 38.1 % [facility] BUN/creatinine ratioOrdered By: Isaias Rocha on 07-18-2025 Urea nitrogen/Creatinine [Mass ratio] 13.2 mg/mg - [facility] Basic Metabolic Profile (BMP )on 07-18-2025 BUN/CRE 13.2 RATIO Normal 09-08 [facility] Comment on above: Performed By: #### L 300.4310, L300.3900 #### [facility] [address] [place], [address] Calcium [Mass/Vol] 8.6 mg/dL Normal 7.6-11.0 [facility] Comment on above: Performed By: #### L 300.4310, L300.3900 #### [facility] [address] [place], [address] Chloride [Moles/Vol] 97 mmol/L Low 98-108 [facility] Comment on above: Performed By: #### L 300.4310, L300.3900 #### [facility] [address] [place], [address] CO2 [Moles/Vol] 26.5 mmol/L Normal 21.0-32.0 [facility] Comment on above: Performed By: #### L 300.4310, L300.3900 #### [facility] [address] [place], [address] Creatinine [Mass/Vol] 1.06 mg/dL Normal 0.70-1.20 [facility] Comment on above: Performed By: #### L 300.4310, L300.3900 #### [facility] [address] [place], [address] ECRCL 72.94 ml/min Normal 50-250 [facility] Comment on above: Performed By: #### L 300.4310, L300.3900 #### [facility] [address] [place], [address] GAP 11 Normal 5-15 [facility] Comment on above: Performed By: #### L 300.4310, L300.3900 #### [facility] [address] [place], [address] GFR/1.73 sq M.predicted among non-blacks MDRD (S/P/Bld) [Vol rate/Area] 75 mL/min/{1.73_m2} Normal >60 [facility] Comment on above: Result Comment: mL/m in/1.73m2 CKD-EPI Creatinine Equation (2020) Performed By: #### L 300.4310, L300.3900 #### [facility] [address] [place], [address] Glucose [Mass/Vol] 101 mg/dL High 70-99 [facility] Comment on above: Performed By: #### L 300.4310, L300.3900 #### [facility] [address] [place], [address] Potassium [Moles/Vol] 4.2 mmol/L Normal 3.3-5.1 [facility] Comment on above: Performed By: #### L 300.4310, L300.3900 #### [facility] [address] [place], [address] Sodium [Moles/Vol] 134 mmol/L Normal 133-145 [facility] Comment on above: Performed By: #### L 300.4310, L300.3900 #### [facility] [address] [place], [address] Urea nitrogen [Mass/Vol] 14 mg/dL Normal 4-19 [facility] Comment on above: Performed By: #### L 300.4310, L300.3900 #### [facility] [address] [place], [address] Basophil percentageOrdered B y: ED PROVIDER on 07-18-2025 Basophils/100 WBC (Bld) 0.2 % 0-1 [facility] CBC W/Diff, Automatedon 06-21 Absolute Lymph 3.41 X10 3/uL Normal 0.83-4.51 [facility] Comment on above: Performed By: #### L 300.4310, L300.3900 #### [facility] [address] [place], [address] Absolute Neut 4.6 X10 3/uL Normal 2.0-7.7 [facility] Comment on above: Performed By: #### L 300.4310, L300.3900 #### [facility] [address] [place], [address] Basophils/100 WBC (Bld) 0.2 % Normal 0-1 [facility] Comment on above: Performed By: #### L 300.4310, L300.3900 #### [facility] [address] [place], [address] Eosinophils/100 WBC (Bld) 1.0 % Normal 0-5 [facility] Comment on above: Performed By: #### L 300.4310, L300.3900 #### [facility] [address] [place], [address] Erythrocyte distribution width (RBC) [Ratio] 14.2 % Normal 11.6-14.6 [facility] Comment on above: Performed By: #### L 300.4310, L300.3900 #### [facility] [address] [place], [address] Hematocrit (Bld) [Volume fraction] 47.0 % Normal 40-54 [facility] Comment on above: Performed By: #### L 300.4310, L300.3900 #### [facility] [address] [place], [address] Hemoglobin (Bld) [Mass/Vol] 16.2 g/dL Normal 13.0-16.5 [facility] Comment on above: Performed By: #### L 300.4310, L300.3900 #### [facility] [address] [place], [address] IG% 0.200 Normal 0.0-0.9 [facility] Comment on above: Result Comment: IG% - Immature Granulocytes (promyelocytes, myelocytes and metamyelocytes) > 1% indicates that a LEFT SHIFT is Present. Performed By: #### L 300.4310, L300.3900 #### [facility] [address] [place], [address] Lymphocytes/100 WBC (Bld) 38.1 % Normal 19-41 [facility] Comment on above: Performed By: #### L 300.4310, L300.3900 #### [facility] [address] [place], [address] MCH (RBC) [Entitic mass] 32.3 pg High 27.0-32.0 [facility] Comment on above: Performed By: #### L 300.4310, L300.3900 #### [facility] [address] [place], [address] MCHC (RBC) [Mass/Vol] 34.5 g/dL Normal 32-36 [facility] Comment on above: Performed By: #### L 300.4310, L300.3900 #### [facility] [address] [place], [address] MCV (RBC) [Entitic vol] 93.8 fL Normal 80-94 [facility] Comment on above: Performed By: #### L 300.4310, L300.3900 #### [facility] [address] [place], [address] Monocytes/100 WBC (Bld) 9.6 % Normal 0-10 [facility] Comment on above: Performed By: #### L 300.4310, L300.3900 #### [facility] [address] [place], [address] Neutrophils/100 WBC (Bld) 50.9 % Normal 47-70 [facility] Comment on above: Performed By: #### L 300.4310, L300.3900 #### [facility] [address] [place], [address] Nucleated RBC (Bld) [#/Vol] 0 10*3/uL Normal 0-5 [facility] Comment on above: Performed By: #### L 300.4310, L300.3900 #### [facility] [address] [place], [address] Platelet mean volume (Bld) [Entitic vol] 9.0 fL Normal 6.2-12.0 [facility] Comment on above: Performed By: #### L 300.4310, L300.3900 #### [facility] [address] [place], [address] Platelets (Bld) [#/Vol] 148 10*3/uL Low 150-450 [facility] Comment on above: Performed By: #### L 300.4310, L300.3900 #### [facility] [address] [place], [address] RBC (Bld) [#/Vol] 5.01 10*6/uL Normal 4.6-6.2 [facility] Comment on above: Performed By: #### L 300.4310, L300.3900 #### [facility] [address] [place], [address] RDW SD 48.9 fl High 35.1-43.9 [facility] Comment on above: Performed By: #### L 300.4310, L300.3900 #### [facility] [address] [place], [address] WBC (Bld) [#/Vol] 9.0 10*3/uL Normal 4.4-11.0 [facility] Comment on above: Performed By: #### L 300.4310, L300.3900 #### [facility] [address] [place], [address] Carbon dioxide, total [Moles /volume] in Central venous bloodOrdered By: Isaias Rocha on 07-18-2025 CO2 [Moles/Vol] 26.5 mmol/L 21.0-32.0 [facility] Chloride assayOrdered By: Esau Rocha on 07-18-2025 Chloride [Moles/Vol] 97 mmol/L Low 98-108 [facility] Eosinophil percentageOrdered By: ED PROVIDER on 07-18-2025 Eosinophils/100 WBC (Bld) 1.0 % 0-5 [facility] Erythrocyte distribution wid th ratioOrdered By: ED PROVIDER on 07-18-2025 Erythrocyte distribution width (RBC) [Ratio] 14.2 % 11.6-14.6 [facility] Erythrocyte distribution wid th standard deviationOrdered By: ED PROVIDER on 07-18-2025 Erythrocyte distribution width (RBC) [Ratio] 48.9 fl High 35.1-43.9 [facility] Glomerular filtration rate ( GFR) estimation/1.73 sq m using serum, plasma, or whole bOrdered By: Isaias Rocha on 07-18-2025 GFR/1.73 sq M.predicted among non-blacks MDRD (S/P/Bld) [Vol rate/Area] 75 mL/min/{1.73_m2} >60 [facility] Comment on above: mL/min/1.73m2 CKD-EP I Creatinine Equation (2020) Hematocrit Auto (Bld) [Volum e fraction]Ordered By: ED PROVIDER on 07-18-2025 Hematocrit (Bld) [Volume fraction] 47.0 % 40-54 [facility] Hemoglobin measurementOrdere d By: ED PROVIDER on 07-18-2025 Hemoglobin (Bld) [Mass/Vol] 16.2 g/dL 13.0-16.5 [facility] Immature granulocytes/100 WB C Auto (Bld)Ordered By: ED PROVIDER on 07-18-2025 Immature granulocytes/100 WBC (Bld) 0.200 % 0.0-0.9 [facility] Comment on above: IG% - Immature Granu locytes (promyelocytes, myelocytes and metamyelocytes) > 1% indicates that a LEFT SHIFT is Present. L501.4021on 07-18-2025 Trop T High Sen 23 ng/L High <=22 [facility] Comment on above: Performed By: #### L 300.4310, L300.3900 #### [facility] [address] [place] [address], [address] MCV (mean corpuscular volume ) determinationOrdered By: ED PROVIDER on 07-18-2025 MCV (RBC) [Entitic vol] 93.8 fL 80-94 [facility] Mean corpuscular hemoglobin (MCH) determinationOrdered By: ED PROVIDER on 07-18-2025 MCH (RBC) [Entitic mass] 32.3 pg High 27.0-32.0 [facility] Mean corpuscular hemoglobin concentration (MCHC) determinationOrdered By: ED PROVIDER on 07-18-2025 MCHC (RBC) [Mass/Vol] 34.5 g/dL 32-36 [facility] Mean platelet volume determi nationOrdered By: ED PROVIDER on 07-18-2025 Platelet mean volume (Bld) [Entitic vol] 9.0 fL 6.2-12.0 [facility] Monocyte percentageOrdered B y: ED PROVIDER on 07-18-2025 Monocytes/100 WBC (Bld) 9.6 % 0-10 [facility] Neutrophil percentageOrdered By: ED PROVIDER on 07-18-2025 Neutrophils/100 WBC (Bld) 50.9 % 47-70 [facility] Nucleated red blood cell per centageOrdered By: ED PROVIDER on 07-18-2025 Nucleated RBC/100 WBC (Bld) [Ratio] 0 % 0-5 [facility] Platelet countOrdered By: ED PROVIDER on 07-18-2025 Platelets (Bld) [#/Vol] 148 10*3/uL Low 150-450 [facility] Potassium measurement (mass/ volume)Ordered By: Isaias Rocha on 07-18-2025 Potassium (Unsp spec) [Mass/Vol] 4.2 mmol/L 3.3-5.1 [facility] RBC Auto (Bld) [#/Vol]Ordere d By: ED PROVIDER on 07-18-2025 RBC (Bld) [#/Vol] 5.01 10*6/uL 4.6-6.2 [facility] Serum creatinine measurement (mass/volume)Ordered By: Isaias Rocha on 07-18-2025 Creatinine [Mass/Vol] 1.06 mg/dL 0.70-1.20 [facility] Serum glucose measurement (m ass/volume)Ordered By: Isaias Rocha on 07-18-2025 Glucose [Mass/Vol] 101 mg/dL High 70-99 [facility] Serum or plasma calcium jennifer urement (mass/volume)Ordered By: Isaias Rocha on 07-18-2025 Calcium [Mass/Vol] 8.6 mg/dL 7.6-11.0 [facility] Serum or plasma urea nitroge n measurement (mass/volume)Ordered By: Isaias Rocha on 07-18-2025 Urea nitrogen [Mass/Vol] 14 mg/dL 4-19 [facility] Sodium levelOrdered By: Isaias Rocha on 07-18-2025 Sodium [Moles/Vol] 134 mmol/L 133-145 [facility] Troponin T.cardiac [Mass/vol ume] in Serum or Plasma by High sensitivity methodOrdered By: Isaias Rocha on 07-18-2025 Troponin T.cardiac High sensitivity method [Mass/Vol] 23 ng/L High <22 [facility] Comment on above: Delta: 43 on 5-0520 White blood cell (WBC) count Ordered By: ED PROVIDER on 07-18-2025 WBC (Bld) [#/Vol] 9.0 10*3/uL 4.4-11.0 [facility] Cardiology Visit Reporton Cardiology Visit Report [facility] [address] [place], [place] [address] OFFICE VISIT Date of Service: 07/04/25 MR#: [id number] Acct: [id number] Name: KELVIN LEE Jr. Rep #: [id number] : 1955 Provider: VERONICA brown Age/Sex: 70/M Location: 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 Normal [facility] Echo, Limited Studyon 2024 Echo, Limited Study [facility] [address] [place] [address] Echo, Limited Study 07/02/25 1507 MR#: [id number] Acct: [id number] Name: KELVIN LEE JrSavita Rep #: [id number] : 1955 70 From: Carlton Keyes MD Attending Dr: Ariane Perez DATA REPORTING ANALYST-C Status: SEAN WEBB Ordering Dr: Ariane Perez NP DATA REPORTING ANALYST-C Date: 07/02/25 Location: [facility] Sex: M C Admitted: Reason For Study [...] Dictated: 07/02/25 150 Date Transcribed: 07/02/25 1627 Recreational Programs Director: Signed Normal [facility] Limited echocardiogram repor tOrdered By: Carlton Keyes on 07-02-2025 Study report [facility] [place] [address] Echo, Limited Study 07/02/25 1507 MR#: [id number] Acct: [id number] Name: KELVIN LEE Jr. Rep #:[id number] : 1955 70 From: Carlton Henry Attending Dr: Ariane Perez, DATA REPORTING ANALYST-C S tatus: REG CLI Ordering Dr: Ariane Perez DATA REPORTING ANALYST DATA REPORTING ANALYST-C Benjamin e: 07/02/25 Location: [facility] Sex: M C Admitted: Reason For Study [...] 1627 Date _ Carlton Keyes MD CC: DATA REPORTING ANALYST-C Ariane Perez; Dr. eLe Mathews MD ~ Date Dictated: 07/02/25 1507 Date Transcribed: 07/02/251626 Recreational Programs Director: Signed [facility] Work Phone: No Panel InformationOrdered By: Margarito Marshall on 05-28-2025 [facility] [address] [place] [address] CR - Individual Treatment Plan MR#: [id number] Acct: [id number] Name: KELVIN LEE Jr. Rep #:[id number] : 1955 70 From: Margarito Rodney BS, [...] men > 45ye (more content not included)... [facility] Cardiology Visit Reporton Cardiology Visit Report [facility] [address] [place] [address] OFFICE VISIT Date of Service: 05/27/25 MR#: [id number] Acct: [id number] Name: KELVIN LEE Jr. Rep #: [id number] : 1955 Provider: FELICIA Soto Age/Sex: 70/M Location: 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 Normal [facility] Anion gap in Serum or Plasma Ordered By: Carlton Keyes on 05-05-2025 Anion gap [Moles/Vol] 10 mmol/L 04-03 [facility] BUN/creatinine ratioOrdered By: Carlton Keyes on 05-05-2025 Urea nitrogen/Creatinine [Mass ratio] 17.1 mg/mg 09-08 [facility] Basic Metabolic Profile (BMP )on 05-05-2025 BUN/CRE 17.1 RATIO Normal 09-08 [facility] Comment on above: Performed By: #### L 300.4310, L300.3900 #### [facility] [address] [place], [address] Calcium [Mass/Vol] 8.8 mg/dL Normal 7.6-11.0 [facility] Comment on above: Performed By: #### L 300.4310, L300.3900 #### [facility] [address] [place], [address] Chloride [Moles/Vol] 98 mmol/L Normal 98-108 [facility] Comment on above: Performed By: #### L 300.4310, L300.3900 #### [facility] [address] [place], [address] CO2 [Moles/Vol] 26.0 mmol/L Normal 21.0-32.0 [facility] Comment on above: Performed By: #### L 300.4310, L300.3900 #### [facility] [address] [place], [address] Creatinine [Mass/Vol] 0.99 mg/dL Normal 0.70-1.20 [facility] Comment on above: Performed By: #### L 300.4310, L300.3900 #### [facility] [address] [place], [address] ECRCL 84.51 ml/min Normal 50-250 [facility] Comment on above: Performed By: #### L 300.4310, L300.3900 #### [facility] [address] [place], [address] GAP 10 Normal 5-15 [facility] Comment on above: Performed By: #### L 300.4310, L300.3900 #### [facility] [address] [place], [address] GFR/1.73 sq M.predicted among non-blacks MDRD (S/P/Bld) [Vol rate/Area] 81 mL/min/{1.73_m2} Normal >60 [facility] Comment on above: Result Comment: mL/m in/1.73m2 CKD-EPI Creatinine Equation (2020) Performed By: #### L 300.4310, L300.3900 #### [facility] [address] [place], [address] Glucose [Mass/Vol] 100 mg/dL High 70-99 [facility] Comment on above: Performed By: #### L 300.4310, L300.3900 #### [facility] [address] [place], [address] Potassium [Moles/Vol] 4.8 mmol/L Normal 3.3-5.1 [facility] Comment on above: Performed By: #### L 300.4310, L300.3900 #### [facility] [address] [place], [address] Sodium [Moles/Vol] 134 mmol/L Normal 133-145 [facility] Comment on above: Performed By: #### L 300.4310, L300.3900 #### [facility] [address] [place], [address] Urea nitrogen [Mass/Vol] 17 mg/dL Normal 4-19 [facility] Comment on above: Performed By: #### L 300.4310, L300.3900 #### [facility] [address] [place], [address] CBC-Complete Blood Cnt No Di ffon 05-05-2025 Erythrocyte distribution width (RBC) [Ratio] 14.2 % Normal 11.6-14.6 [facility] Comment on above: Performed By: #### L 300.4310, L300.3900 #### [facility] [address] [place], [address] Hematocrit (Bld) [Volume fraction] 51.1 % Normal 40-54 [facility] Comment on above: Performed By: #### L 300.4310, L300.3900 #### [facility] [address] [place], [address] Hemoglobin (Bld) [Mass/Vol] 17.3 g/dL High 13.0-16.5 [facility] Comment on above: Performed By: #### L 300.4310, L300.3900 #### [facility] [address] [place], [address] MCH (RBC) [Entitic mass] 31.4 pg Normal 27.0-32.0 [facility] Comment on above: Performed By: #### L 300.4310, L300.3900 #### [facility] [address] [place], [address] MCHC (RBC) [Mass/Vol] 33.9 g/dL Normal 32-36 [facility] Comment on above: Performed By: #### L 300.4310, L300.3900 #### [facility] [address] [place], [address] MCV (RBC) [Entitic vol] 92.7 fL Normal 80-94 [facility] Comment on above: Performed By: #### L 300.4310, L300.3900 #### [facility] [address] [place], [address] Platelet mean volume (Bld) [Entitic vol] 8.9 fL Normal 6.2-12.0 [facility] Comment on above: Performed By: #### L 300.4310, L300.3900 #### [facility] [address] [place], [address] Platelets (Bld) [#/Vol] 118 10*3/uL Low 150-450 [facility] Comment on above: Performed By: #### L 300.4310, L300.3900 #### [facility] [address] [place], [address] RBC (Bld) [#/Vol] 5.51 10*6/uL Normal 4.6-6.2 [facility] Comment on above: Performed By: #### L 300.4310, L300.3900 #### [facility] [address] [place], [address] RDW SD 48.4 fl High 35.1-43.9 [facility] Comment on above: Performed By: #### L 300.4310, L300.3900 #### [facility] [address] [place], [address] WBC (Bld) [#/Vol] 6.8 10*3/uL Normal 4.4-11.0 [facility] Comment on above: Performed By: #### L 300.4310, L300.3900 #### [facility] [address] [place], [address] Carbon dioxide, total [Moles /volume] in Central venous bloodOrdered By: Houston Stephy on 05-05-2025 CO2 [Moles/Vol] 26.0 mmol/L 21.0-32.0 [facility] Chloride assayOrdered By: Cy ril Stephy on 05-05-2025 Chloride [Moles/Vol] 98 mmol/L 98-108 [facility] Erythrocyte distribution wid th ratioOrdered By: Houston Stephy on 05-05-2025 Erythrocyte distribution width (RBC) [Ratio] 14.2 % 11.6-14.6 [facility] Erythrocyte distribution wid th standard deviationOrdered By: Carlton Stephy on 05-05-2025 Erythrocyte distribution width (RBC) [Ratio] 48.4 fl High 35.1-43.9 [facility] Glomerular filtration rate ( GFR) estimation/1.73 sq m using serum, plasma, or whole bOrdered By: Houston Stephy on 05-05-2025 GFR/1.73 sq M.predicted among non-blacks MDRD (S/P/Bld) [Vol rate/Area] 81 mL/min/{1.73_m2} >60 [facility] Comment on above: mL/min/1.73m2 CKD-EP I Creatinine Equation (2020) Hematocrit Auto (Bld) [Volum e fraction]Ordered By: Carlton Keyes on 05-05-2025 Hematocrit (Bld) [Volume fraction] 51.1 % 40-54 [facility] Hemoglobin measurementOrdere d By: Houston Stephy on 05-05-2025 Hemoglobin (Bld) [Mass/Vol] 17.3 g/dL High 13.0-16.5 [facility] MCV (mean corpuscular volume ) determinationOrdered By: Carlton Stephy on 05-05-2025 MCV (RBC) [Entitic vol] 92.7 fL 80-94 [facility] Mean corpuscular hemoglobin (MCH) determinationOrdered By: Houston Stephy on 05-05-2025 MCH (RBC) [Entitic mass] 31.4 pg 27.0-32.0 [facility] Mean corpuscular hemoglobin concentration (MCHC) determinationOrdered By: Houston Stephy on 05-05-2025 MCHC (RBC) [Mass/Vol] 33.9 g/dL 32-36 [facility] Mean platelet volume determi nationOrdered By: Houston Stephy on 05-05-2025 Platelet mean volume (Bld) [Entitic vol] 8.9 fL 6.2-12.0 [facility] Platelet countOrdered By: Cy erick Keyes on 05-05-2025 Platelets (Bld) [#/Vol] 118 10*3/uL Low 150-450 [facility] Potassium measurement (mass/ volume)Ordered By: Carlton Stephy on 05-05-2025 Potassium (Unsp spec) [Mass/Vol] 4.8 mmol/L 3.3-5.1 [facility] Procedure Reporton Procedure Report [facility] Medical Records Department [address] [place] [address] Procedure Report 05/05/25 1259 MR#: [id number] Acct: [id number] Name: KELVIN LEE JrSavita Rep #: [id number] : 1955 69 From: Nigel Read DO PCP: Dr. Lee Mathews MD Status:[facility] Location: [facility] Procedures Pulmonary Pulmonary Procedures /Diagnostic Testin Con Sedation Non-invasive Procedural Procedure Information Date of Procedure: 05/05/25 Description of procedure: CONSCIOUS SEDATION REPORT DATE OF SERVICE: May 05, 2025 BRIEF HISTORY OF PRESENT ILLNESS: The patient is a 69-year-old male who presented to [facility] to undergo an elective outpatient cardioversion due [...] MD; Dr. Nigel Read DO Signed Normal [facility] Procedure Report [facility] Medical Records Department [address] [place] [address] Procedure Report 05/05/25 1250 MR#: [id number] Acct: [id number] Name: KELVIN LEE Jr. Rep #: [id number] : 1955 69 From: Carlton Keyes MD PCP: Dr. Lee Mathews MD Status:[facility] Location: [facility] Non-invasive Procedural Procedure Information Date of [...] MD; Dr. Carlton Keyes MD Signed Normal [facility] RBC Auto (Bld) [#/Vol]Ordere d By: Carlton Keyes on 05-05-2025 RBC (Bld) [#/Vol] 5.51 10*6/uL 4.6-6.2 [facility] Serum creatinine measurement (mass/volume)Ordered By: Carlton Keyes on 05-05-2025 Creatinine [Mass/Vol] 0.99 mg/dL 0.70-1.20 [facility] Serum glucose measurement (m ass/volume)Ordered By: Carlton Keyes on 05-05-2025 Glucose [Mass/Vol] 100 mg/dL High 70-99 [facility] Serum or plasma calcium jennifer urement (mass/volume)Ordered By: Carlton Keyes on 05-05-2025 Calcium [Mass/Vol] 8.8 mg/dL 7.6-11.0 [facility] Serum or plasma urea nitroge n measurement (mass/volume)Ordered By: Carlton Keyes on 05-05-2025 Urea nitrogen [Mass/Vol] 17 mg/dL 4-19 [facility] Sodium levelOrdered By: Cornel Keyes on 05-05-2025 Sodium [Moles/Vol] 134 mmol/L 133-145 [facility] White blood cell (WBC) count Ordered By: Carlton Keyes on 05-05-2025 WBC (Bld) [#/Vol] 6.8 10*3/uL 4.4-11.0 [facility] Cardiac rehabilitation evalu ation reportOrdered By: Margarito Marshall on 05-04-2025 Study report [facility] Cardiac Rehab [address] [place] [address] CR - History & Physical MR#: [id number] Acct: [id number] Name: KELVIN LEE JrSavita Rep #:[id number] : 1955 69 From: Margarito Rodney BS, [...] Do you have a Healthcare Power of Home Security Professional?: No Living Will: No Advance Directives Information [...] Depression Risk Guidelines Family History Family History (Reviewed 04/03/25 @ 14:52 by Ariane Perez DATA REPORTING ANALYST, DATA REPORTING ANALYST-C) Father History of blood clots Lupus Bowel d (more content not included)... [facility] No Panel InformationOrdered By: Margarito Marshall on 05-04-2025 [facility] Cardiac Rehab [address] [place] [address] CR - Individual Treatment Plan MR#: [id number] Acct: [id number] Name: KELVIN LEE Jr. Rep #:[id number] : 1955 69 From: Margarito Rodney BS, [...] Referral to Physical Therapy: No Referral to [facility] Case Management: No Fall Risk Assessed:: Yes [...] Treadmill, Rower, Schwinn Airdyne AD-7, SciFit Stepper, EZbuildingEHS Pro-II Ergometer and Vascular ImagingFit Lateral [place] Frequency: 3x/week for 12 weeks [36 sessions] [...] Yes Diagnosis High (more content not included)... [facility] CR - History AND Physicalon 05-01-2025 CR - History & Physical [facility] Cardiac Rehab [address] [place] [address] CR - History Physical MR#: [id number] Acct: [id number] Name: KELVIN LEE Jr. Rep #: [id number] : 1955 69 From: Margarito MARTINEZ, RVT [...] Do you have a Healthcare Power of Home Security Professional?: No Living Will: No Advance Directives Information [...] Obesity/Overweight Ri (more content not included)... Normal [facility] 12 Lead EKG performed by [facility] on 04-03-2025 12 Lead EKG performed by [facility] [address] [place] [address] 12 Lead EKG performed by [facility] 04/03/25 1418 MR#: [id number] Acct: [id number] Name: KELVIN LEE Rep #: [id number] : 1955 69 From: Ariane Perez NP DATA REPORTING ANALYST-C Attending Dr: Ariane Perez DATA REPORTING ANALYST-C Status: DEP A NIMESH Ordering Dr: Ariane Perez NP DATA REPORTING ANALYST-C Date: 04/03/25 Location: [facility] Sex: M C Admitted: [facility]/12 Lead EKG performed by [facility] ECG Report Interpretation ------Atrial fibrillation -Frequent pvcs -ventricular bigeminy -Incomplete right bundle branch block. - Nonspecific T-abnormality. ABNORMAL Electronically signed on 04/09/2025 at 09:42 by Carlton Keyeswood Software Version [id number] 04/09/25 0947 Date Ariane Perez NP DATA REPORTING ANALYST-C CC: Dr. Lee Mathews MD Date Dictated: 04/03/251417 Date Transcribed: 04/03/251417 [employer]creational Programs Director: LAMAR Signed Normal [facility] Absolute lymphocyte countOrd ered By: Ariane Perez on 04-03-2025 Lymphocytes Auto (Unsp spec) [#/Vol] 1.76 10*3/uL 0.83-4.51 [facility] Absolute neutrophil countOrd ered By: Ariane Perez on 04-03-2025 Neutrophils (Bld) [#/Vol] 4.6 10*3/uL 2.0-7.7 [facility] Anion gap in Serum or Plasma Ordered By: Ariane Perez on 04-03-2025 Anion gap [Moles/Vol] 8 mmol/L 04-03 [facility] Automated lymphocyte count a s percentage of total leukocytesOrdered By: Ariane Perez on 04-03-2025 Lymphocytes/100 WBC Auto (Unsp spec) 24.6 % [facility] BUN/creatinine ratioOrdered By: Ariane Perez on 04-03-2025 Urea nitrogen/Creatinine [Mass ratio] 24.2 mg/mg High 09-08 [facility] Basic Metabolic Profile (BMP )on 04-03-2025 BUN/CRE 24.2 RATIO High 09-08 [facility] Comment on above: Performed By: #### L 503.6792, L100.0100, L500.2500 ####[facility] [address] [place], [place], [address] Calcium [Mass/Vol] 8.0 mg/dL Normal 7.6-11.0 [facility] Comment on above: Performed By: #### L 503.7505, L100.0100, L500.2500 ####[facility] [address] [place], [address] Chloride [Moles/Vol] 98 mmol/L Normal 98-108 [facility] Comment on above: Performed By: #### L 503.7505, L100.0100, L500.2500 ####[facility] [address] [place], [address] CO2 [Moles/Vol] 32.9 mmol/L High 21.0-32.0 [facility] Comment on above: Performed By: #### L 503.7505, L100.0100, L500.2500 ####[facility] [address] [place], [address] Creatinine [Mass/Vol] 1.18 mg/dL Normal 0.70-1.20 [facility] Comment on above: Performed By: #### L 503.7505, L100.0100, L500.2500 ####[facility] [address] [place], [address] GAP 8 Normal 5-15 [facility] Comment on above: Performed By: #### L 503.7505, L100.0100, L500.2500 ####[facility] [address] [place], [address] GFR/1.73 sq M.predicted among non-blacks MDRD (S/P/Bld) [Vol rate/Area] 66 mL/min/{1.73_m2} Normal >60 [facility] Comment on above: Result Comment: mL/m in/1.73m2 CKD-EPI Creatinine Equation (2020) Performed By: #### L 503.7505, L100.0100, L500.2500 ####[facility] [address] [place], [address] Glucose [Mass/Vol] 82 mg/dL Normal 70-99 [facility] Comment on above: Performed By: #### L 503.7505, L100.0100, L500.2500 ####[facility] [address] [place], [address] Potassium [Moles/Vol] 5.1 mmol/L Normal 3.3-5.1 [facility] Comment on above: Performed By: #### L 503.7505, L100.0100, L500.2500 ####[facility] [address] [place], [address] Sodium [Moles/Vol] 138 mmol/L Normal 133-145 [facility] Comment on above: Performed By: #### L 503.7505, L100.0100, L500.2500 ####[facility] [address] [place], [address] Urea nitrogen [Mass/Vol] 29 mg/dL High 4-19 [facility] Comment on above: Performed By: #### L 503.7505, L100.0100, L500.2500 ####[facility] [address] [place], [address] Basophil percentageOrdered B y: Ariane Perez on 04-03-2025 Basophils/100 WBC (Bld) 0.4 % 0-1 [facility] CBC W/Diff, Automatedon 03-20 PLT EST MOD DEC Normal ADEQ [facility] Comment on above: Performed By: #### L 503.7505, L100.0100, L500.2500 ####[facility] [address] [place], [address] Carbon dioxide, total [Moles /volume] in Central venous bloodOrdered By: Ariane Perez on 04-03-2025 CO2 [Moles/Vol] 32.9 mmol/L High 21.0-32.0 [facility] Cardiology Visit Reporton Cardiology Visit Report [facility] [address] [place] [address] OFFICE VISIT Date of Service: 04/03/25 MR#: [id number] Acct: [id number] Name: KELVIN LEE Jr. Rep #: [id number] : 1955 Provider: VERONICA brown Age/Sex: 69/M Location: [facility] Status: Signed HPI HPI History of [...] Pulse Oximetry (%) 98 Intake Visit Reasons: [facility] 03/27 CHF Ethnology Professor Required: No Is patient in pain?: No [...] use Anxiety and depression Cancer Surgical History (Reviewed 04/03/25 @ 14:52 by Ariane Perez DATA REPORTING ANALYST, DATA REPORTING ANALYST-C) History of appendectomy Family History (Reviewed 04/03/25 @ 14:52 by Ariane Perez DATA REPORTING ANALYST, DATA REPORTING ANALYST-C) Father History of blood clots Lupus Bowel disease Colon cancer Skin cancer CVA (cerebral vascular accident) Mother Hypertension Social History (Reviewed 04/03/25 @ 14:52 by Ariane Perez DATA REPORTING ANALYST, DATA REPORTING ANALYST-C) household members: spouse Smoking Status: Current some [...] Positive f (more content not included)... Normal [facility] Chloride assayOrdered By: Shiv Perez on 04-03-2025 Chloride [Moles/Vol] 98 mmol/L 98-108 [facility] Eosinophil percentageOrdered By: Ariane Perez on 04-03-2025 Eosinophils/100 WBC (Bld) 0.7 % 0-5 [facility] Erythrocyte distribution wid th ratioOrdered By: Ariane Perez on 04-03-2025 Erythrocyte distribution width (RBC) [Ratio] 16.4 % High 11.6-14.6 [facility] Erythrocyte distribution wid th standard deviationOrdered By: Ariane Perez on 04-03-2025 Erythrocyte distribution width (RBC) [Ratio] 58.1 fl High 35.1-43.9 [facility] Glomerular filtration rate ( GFR) estimation/1.73 sq m using serum, plasma, or whole bOrdered By: Ariane Perez on 04-03-2025 GFR/1.73 sq M.predicted among non-blacks MDRD (S/P/Bld) [Vol rate/Area] 66 mL/min/{1.73_m2} >60 [facility] Comment on above: mL/min/1.73m2 CKD-EP I Creatinine Equation (2020) Hematocrit Auto (Bld) [Volum e fraction]Ordered By: Ariane Perez on 04-03-2025 Hematocrit (Bld) [Volume fraction] 53.0 % 40-54 [facility] Hemoglobin measurementOrdere d By: Ariane Perez on 04-03-2025 Hemoglobin (Bld) [Mass/Vol] 17.0 g/dL High 13.0-16.5 [facility] Immature granulocytes/100 WB C Auto (Bld)Ordered By: Ariane Perez on 04-03-2025 Immature granulocytes/100 WBC (Bld) 0.400 % 0.0-0.9 [facility] Comment on above: IG% - Immature Granu locytes (promyelocytes, myelocytes and metamyelocytes) > 1% indicates that a LEFT SHIFT is Present. L503.7505on 04-03-2025 Natriuretic peptide B (Bld) [Mass/Vol] 9050 pg/mL High <=900 [facility] Comment on above: Result Comment: Hear t Failure Unlikely: < 300 pg/mL Heart Failure Likely < 50 Years: > 450 pg/mL 50-75 Years: > 900 pg/mL >75 Years: > 1800 pg/mL Performed By: #### L 503.7505, L100.0100, L500.2500 ####[facility] [address] [place], [address] MCV (mean corpuscular volume ) determinationOrdered By: Ariane Perez on 04-03-2025 MCV (RBC) [Entitic vol] 98.3 fL High 80-94 [facility] Mean corpuscular hemoglobin (MCH) determinationOrdered By: Ariane Perez on 04-03-2025 MCH (RBC) [Entitic mass] 31.5 pg 27.0-32.0 [facility] Mean corpuscular hemoglobin concentration (MCHC) determinationOrdered By: Ariane Perez on 04-03-2025 MCHC (RBC) [Mass/Vol] 32.1 g/dL 32-36 [facility] Mean platelet volume determi nationOrdered By: Ariane Perez on 04-03-2025 Platelet mean volume (Bld) [Entitic vol] 11.1 fL 6.2-12.0 [facility] Monocyte percentageOrdered B y: Ariane Perez on 04-03-2025 Monocytes/100 WBC (Bld) 9.2 % 0-10 [facility] Natriuretic peptide.B prohor geraldine N-Terminal [Mass/volume] in Serum or PlasmaOrdered By: Ariane Perez on 04-03-2025 Natriuretic peptide.B prohormone N-Terminal [Mass/Vol] 9050 pg/mL High <900 [facility] Comment on above: Heart Failure Unlike ly: < 300 pg/mLHeart Failure Likely< 50 Years: > 450 pg/mL50-75 Years: > 900 pg/mL>75 Years: > 1800 pg/mL Neutrophil percentageOrdered By: Ariane Perez on 04-03-2025 Neutrophils/100 WBC (Bld) 64.7 % 47-70 [facility] Nucleated red blood cell per centageOrdered By: Ariane Perez on 04-03-2025 Nucleated RBC/100 WBC (Bld) [Ratio] 0 % 0-5 [facility] Platelet countOrdered By: Shiv Perez on 04-03-2025 Platelets (Bld) [#/Vol] 95 10*3/uL Low 150-450 [facility] Platelet estimateOrdered By: Ariane Perez on 04-03-2025 Platelets LM Ql (Bld) MOD DEC ADEQ [facility] Potassium measurement (mass/ volume)Ordered By: Ariane Perez on 04-03-2025 Potassium (Unsp spec) [Mass/Vol] 5.1 mmol/L 3.3-5.1 [facility] RBC Auto (Bld) [#/Vol]Ordere d By: Ariane Perez on 04-03-2025 RBC (Bld) [#/Vol] 5.39 10*6/uL 4.6-6.2 [facility] Serum creatinine measurement (mass/volume)Ordered By: Ariane Perez on 04-03-2025 Creatinine [Mass/Vol] 1.18 mg/dL 0.70-1.20 [facility] Serum glucose measurement (m ass/volume)Ordered By: Ariane Perez on 04-03-2025 Glucose [Mass/Vol] 82 mg/dL 70-99 [facility] Serum or plasma calcium jennifer urement (mass/volume)Ordered By: Ariane Perez on 04-03-2025 Calcium [Mass/Vol] 8.0 mg/dL 7.6-11.0 [facility] Serum or plasma urea nitroge n measurement (mass/volume)Ordered By: Ariane Perez on 04-03-2025 Urea nitrogen [Mass/Vol] 29 mg/dL High 03-08 [facility] Sodium levelOrdered By: Lizzy Perez on 04-03-2025 Sodium [Moles/Vol] 138 mmol/L 133-145 [facility] White blood cell (WBC) count Ordered By: Ariane Perez on 04-03-2025 WBC (Bld) [#/Vol] 7.2 10*3/uL 4.4-11.0 [facility] Anion gap in Serum or Plasma Ordered By: Derrick Chacon on 03-27-2025 Anion gap [Moles/Vol] 8 mmol/L 04-03 [facility] BUN/creatinine ratioOrdered By: Derrick Chacon on 03-27-2025 Urea nitrogen/Creatinine [Mass ratio] 22.0 mg/mg High 09-08 [facility] Basic Metabolic Profile (BMP )on 03-27-2025 BUN/CRE 22.0 RATIO High 09-08 [facility] Comment on above: Performed By: #### L 300.4310, L300.3900 #### [facility] [address] [place], [address] Calcium [Mass/Vol] 8.2 mg/dL Normal 7.6-11.0 [facility] Comment on above: Performed By: #### L 300.4310, L300.3900 #### [facility] [address] [place], [address] Chloride [Moles/Vol] 98 mmol/L Normal 98-108 [facility] Comment on above: Performed By: #### L 300.4310, L300.3900 #### [facility] [address] [place], [address] CO2 [Moles/Vol] 35.1 mmol/L High 21.0-32.0 [facility] Comment on above: Performed By: #### L 300.4310, L300.3900 #### [facility] [address] [place], [address] Creatinine [Mass/Vol] 1.49 mg/dL High 0.70-1.20 [facility] Comment on above: Performed By: #### L 300.4310, L300.3900 #### [facility] [address] [place], [address] ECRCL 54.90 ml/min Normal 50-250 [facility] Comment on above: Performed By: #### L 300.4310, L300.3900 #### [facility] [address] [place], [address] GAP 8 Normal 5-15 [facility] Comment on above: Performed By: #### L 300.4310, L300.3900 #### [facility] [address] [place], [address] GFR/1.73 sq M.predicted among non-blacks MDRD (S/P/Bld) [Vol rate/Area] 50 mL/min/{1.73_m2} Low >60 [facility] Comment on above: Result Comment: mL/m in/1.73m2 CKD-EPI Creatinine Equation (2020) Performed By: #### L 300.4310, L300.3900 #### [facility] [address] [place], [address] Glucose [Mass/Vol] 94 mg/dL Normal 70-99 [facility] Comment on above: Performed By: #### L 300.4310, L300.3900 #### [facility] [address] [place], [address] Potassium [Moles/Vol] 3.9 mmol/L Normal 3.3-5.1 [facility] Comment on above: Performed By: #### L 300.4310, L300.3900 #### [facility] [address] [place], [address] Sodium [Moles/Vol] 141 mmol/L Normal 133-145 [facility] Comment on above: Performed By: #### L 300.4310, L300.3900 #### [facility] [address] [place], [address] Urea nitrogen [Mass/Vol] 33 mg/dL High 4-19 [facility] Comment on above: Performed By: #### L 300.4310, L300.3900 #### [facility] [address] [place], [address] Carbon dioxide, total [Moles /volume] in Central venous bloodOrdered By: Derrick Chacon on 03-27-2025 CO2 [Moles/Vol] 35.1 mmol/L High 21.0-32.0 [facility] Chloride assayOrdered By: Denis Chacon on 03-27-2025 Chloride [Moles/Vol] 98 mmol/L 98-108 [facility] Discharge Instructionon 05-0 Discharge Instruction [facility] Medical Records Department [address] [place] [address] Instructions for Home/Discharge Instructions 03/27/25 1012 MR#: [id number] Acct: [id number] Name: KELVIN LEE Jr. Rep #: [id number] : 1955 69 From: Derrick Chacon MD [...] MD; Dr. Krissy Freitas MD Signed Normal [facility] Glomerular filtration rate ( GFR) estimation/1.73 sq m using serum, plasma, or whole bOrdered By: Derrick Chacon on 03-27-2025 GFR/1.73 sq M.predicted among non-blacks MDRD (S/P/Bld) [Vol rate/Area] 50 mL/min/{1.73_m2} Low >60 [facility] Comment on above: mL/min/1.73m2 CKD-EP I Creatinine Equation (2020) Potassium measurement (mass/ volume)Ordered By: Derrick Chacon on 03-27-2025 Potassium (Unsp spec) [Mass/Vol] 3.9 mmol/L 3.3-5.1 [facility] Serum creatinine measurement (mass/volume)Ordered By: Derrick Chacon on 03-27-2025 Creatinine [Mass/Vol] 1.49 mg/dL High 0.70-1.20 [facility] Serum glucose measurement (m ass/volume)Ordered By: Derrick Chacon on 03-27-2025 Glucose [Mass/Vol] 94 mg/dL 70-99 [facility] Serum or plasma calcium jennifer urement (mass/volume)Ordered By: Derrick Chacon on 03-27-2025 Calcium [Mass/Vol] 8.2 mg/dL 7.6-11.0 [facility] Serum or plasma urea nitroge n measurement (mass/volume)Ordered By: Derrick Chacon on 03-27-2025 Urea nitrogen [Mass/Vol] 33 mg/dL High 4-19 [facility] Sodium levelOrdered By: Shayna Chacon on 03-27-2025 Sodium [Moles/Vol] 141 mmol/L 133-145 [facility] Basic Metabolic Profile (BMP )on 03-26-2025 BUN/CRE 23.4 RATIO High 10-20 [facility] Comment on above: Performed By: #### L 300.4310, L300.3900 #### [facility] Laboratory [address] [place], [place], [address] Calcium [Mass/Vol] 8.1 mg/dL Normal 7.6-11.0 [facility] Comment on above: Performed By: #### L 300.4310, L300.3900 #### [facility] [address] [place], [address] Chloride [Moles/Vol] 97 mmol/L Low 98-108 [facility] Comment on above: Performed By: #### L 300.4310, L300.3900 #### [facility] [address] [place], [address] CO2 [Moles/Vol] 31.4 mmol/L Normal 21.0-32.0 [facility] Comment on above: Performed By: #### L 300.4310, L300.3900 #### [facility] [address] [place], [address] Creatinine [Mass/Vol] 1.35 mg/dL High 0.70-1.20 [facility] Comment on above: Performed By: #### L 300.4310, L300.3900 #### [facility] [address] [place], [address] ECRCL 60.85 ml/min Normal 50-250 [facility] Comment on above: Performed By: #### L 300.4310, L300.3900 #### [facility] [address] [place], [address] GAP 10 Normal 5-15 [facility] Comment on above: Performed By: #### L 300.4310, L300.3900 #### [facility] [address] [place], [address] GFR/1.73 sq M.predicted among non-blacks MDRD (S/P/Bld) [Vol rate/Area] 56 mL/min/{1.73_m2} Low >60 [facility] Comment on above: Result Comment: mL/m in/1.73m2 CKD-EPI Creatinine Equation (2020) Performed By: #### L 300.4310, L300.3900 #### [facility] [address] [place], [address] Glucose [Mass/Vol] 104 mg/dL High 70-99 [facility] Comment on above: Performed By: #### L 300.4310, L300.3900 #### [facility] [address] [place], [address] Potassium [Moles/Vol] 3.7 mmol/L Normal 3.3-5.1 [facility] Comment on above: Performed By: #### L 300.4310, L300.3900 #### [facility] [address] [place], [address] Sodium [Moles/Vol] 139 mmol/L Normal 133-145 [facility] Comment on above: Performed By: #### L 300.4310, L300.3900 #### [facility] [address] [place], [address] Urea nitrogen [Mass/Vol] 32 mg/dL High 4-19 [facility] Comment on above: Performed By: #### L 300.4310, L300.3900 #### [facility] [address] [place], [address] L503.7505on 03-26-2025 Natriuretic peptide B (Bld) [Mass/Vol] 84064 pg/mL High <=900 [facility] Comment on above: Result Comment: Hear t Failure Unlikely: < 300 pg/mL Heart Failure Likely < 50 Years: > 450 pg/mL 50-75 Years: > 900 pg/mL >75 Years: > 1800 pg/mL Performed By: #### L 503.7505 #### [facility] [address] [place], [address] Magnesiumon 03-26-2025 Magnesium [Mass/Vol] 2.2 mg/dL Normal 1.5-2.2 [facility] Comment on above: Performed By: #### L 300.4310, L300.3900 #### [facility] [address] [place], [address] Magnesium measurement (mass/ volume)Ordered By: Stanley Maradiaga on 03-26-2025 Magnesium (Unsp spec) [Mass/Vol] 2.2 mg/dL 1.5-2.2 [facility] Natriuretic peptide.B prohor geraldine N-Terminal [Mass/volume] in Serum or PlasmaOrdered By: Madhu Bautista on 03-26-2025 Natriuretic peptide.B prohormone N-Terminal [Mass/Vol] 43483 pg/mL High <900 [facility] Comment on above: Heart Failure Unlike ly: < 300 pg/mLHeart Failure Likely< 50 Years: > 450 pg/mL50-75 Years: > 900 pg/mL>75 Years: > 1800 pg/mL Basic Metabolic Profile (BMP )on 03-25-2025 BUN/CRE 22.7 RATIO High 10-20 [facility] Comment on above: Performed By: #### L 300.4310, L300.3900 #### [facility] [address] [place], [address] Calcium [Mass/Vol] 8.3 mg/dL Normal 7.6-11.0 [facility] Comment on above: Performed By: #### L 300.4310, L300.3900 #### [facility] [address] [place], [address] Chloride [Moles/Vol] 97 mmol/L Low 98-108 [facility] Comment on above: Performed By: #### L 300.4310, L300.3900 #### [facility] [address] [place], [address] CO2 [Moles/Vol] 32.8 mmol/L High 21.0-32.0 [facility] Comment on above: Performed By: #### L 300.4310, L300.3900 #### [facility] [address] [place], [address] Creatinine [Mass/Vol] 1.39 mg/dL High 0.70-1.20 [facility] Comment on above: Performed By: #### L 300.4310, L300.3900 #### [facility] [address] [place], [address] ECRCL 60.26 ml/min Normal 50-250 [facility] Comment on above: Performed By: #### L 300.4310, L300.3900 #### [facility] [address] [place], [address] GAP 10 Normal 5-15 [facility] Comment on above: Performed By: #### L 300.4310, L300.3900 #### [facility] [address] [place], [address] GFR/1.73 sq M.predicted among non-blacks MDRD (S/P/Bld) [Vol rate/Area] 54 mL/min/{1.73_m2} Low >60 [facility] Comment on above: Result Comment: mL/m in/1.73m2 CKD-EPI Creatinine Equation (2020) Performed By: #### L 300.4310, L300.3900 #### [facility] [address] [place], [address] Glucose [Mass/Vol] 113 mg/dL High 70-99 [facility] Comment on above: Performed By: #### L 300.4310, L300.3900 #### [facility] [address] [place], [address] Potassium [Moles/Vol] 4.1 mmol/L Normal 3.3-5.1 [facility] Comment on above: Result Comment: Hemo lysis present, Results??could be affected. ?? Performed By: #### L 300.4310, L300.3900 #### [facility] [address] [place], [address] Sodium [Moles/Vol] 140 mmol/L Normal 133-145 [facility] Comment on above: Performed By: #### L 300.4310, L300.3900 #### [facility] [address] [place], [address] Urea nitrogen [Mass/Vol] 32 mg/dL High 4-19 [facility] Comment on above: Performed By: #### L 300.4310, L300.3900 #### [facility] [address] [place], [address] Absolute lymphocyte countOrd ered By: Stanley Craig on 03-24-2025 Lymphocytes Auto (Unsp spec) [#/Vol] 2.32 10*3/uL 0.83-4.51 [facility] Absolute neutrophil countOrd ered By: Stanley Craig on 03-24-2025 Neutrophils (Bld) [#/Vol] 4.2 10*3/uL 2.0-7.7 [facility] Activated partial thrombopla stin time (aPTT) in platelet poor plasma by coagulation aOrdered By: Krissy Freitas on 03-24-2025 aPTT Coag (PPP) [Time] 34.6 s 24.1-36.2 [facility] Automated lymphocyte count a s percentage of total leukocytesOrdered By: Stanley Craig on 03-24-2025 Lymphocytes/100 WBC Auto (Unsp spec) 31.6 % 19-41 [facility] Basic Metabolic Profile (BMP )on 03-24-2025 BUN/CRE 20.5 RATIO High 10-20 [facility] Comment on above: Performed By: #### L 500.3400, L500.2500, L100.0100, L501.5200 ####[facility] [address] [place], [address] Calcium [Mass/Vol] 8.2 mg/dL Normal 7.6-11.0 [facility] Comment on above: Performed By: #### L 500.3400, L500.2500, L100.0100, L501.5200 ####[facility] [address] [place], [address] Chloride [Moles/Vol] 97 mmol/L Low 98-108 [facility] Comment on above: Performed By: #### L 500.3400, L500.2500, L100.0100, L501.5200 ####[facility] [address] [place], [address] CO2 [Moles/Vol] 29.1 mmol/L Normal 21.0-32.0 [facility] Comment on above: Performed By: #### L 500.3400, L500.2500, L100.0100, L501.5200 ####[facility] [address] [place], [address] Creatinine [Mass/Vol] 1.26 mg/dL High 0.70-1.20 [facility] Comment on above: Performed By: #### L 500.3400, L500.2500, L100.0100, L501.5200 ####[facility] [address] [place], [address] ECRCL 66.51 ml/min Normal 50-250 [facility] Comment on above: Performed By: #### L 500.3400, L500.2500, L100.0100, L501.5200 ####[facility] [address] [place], [address] GAP 12 Normal 5-15 [facility] Comment on above: Performed By: #### L 500.3400, L500.2500, L100.0100, L501.5200 ####[facility] [address] [place], [address] GFR/1.73 sq M.predicted among non-blacks MDRD (S/P/Bld) [Vol rate/Area] 61 mL/min/{1.73_m2} Normal >60 [facility] Comment on above: Result Comment: mL/m in/1.73m2 CKD-EPI Creatinine Equation (2020) Performed By: #### L 500.3400, L500.2500, L100.0100, L501.5200 ####[facility] [address] [place], [address] Glucose [Mass/Vol] 106 mg/dL High 70-99 [facility] Comment on above: Performed By: #### L 500.3400, L500.2500, L100.0100, L501.5200 ####[facility] [address] [place], [address] Potassium [Moles/Vol] 3.7 mmol/L Normal 3.3-5.1 [facility] Comment on above: Performed By: #### L 500.3400, L500.2500, L100.0100, L501.5200 ####[facility] [address] [place], [address] Sodium [Moles/Vol] 138 mmol/L Normal 133-145 [facility] Comment on above: Performed By: #### L 500.3400, L500.2500, L100.0100, L501.5200 ####[facility] [address] [place], [address] Urea nitrogen [Mass/Vol] 26 mg/dL High 4-19 [facility] Comment on above: Performed By: #### L 500.3400, L500.2500, L100.0100, L501.5200 ####[facility] [address] [place], [address] Basophil percentageOrdered B y: Stanley Carig on 03-24-2025 Basophils/100 WBC (Bld) 0.4 % 0-1 [facility] Bilirubin directOrdered By: Stanley Craig on 03-24-2025 Bilirubin.direct [Mass/Vol] 0.70 mg/dL High 0.00-0.30 [facility] Bilirubin, totalOrdered By: Stanley Craig on 03-24-2025 Bilirubin [Mass/Vol] 1.30 mg/dL 0.00-1.30 [facility] CBC W/Diff, Automatedon 05-0 5-2025 Absolute Lymph 2.32 X10 3/uL Normal 0.83-4.51 [facility] Comment on above: Performed By: #### L 500.3400, L500.2500, L100.0100, L501.5200 ####[facility] [address] [place], [address] Absolute Neut 4.2 X10 3/uL Normal 2.0-7.7 [facility] Comment on above: Performed By: #### L 500.3400, L500.2500, L100.0100, L501.5200 ####[facility] [address] [place], [address] Basophils/100 WBC (Bld) 0.4 % Normal 0-1 [facility] Comment on above: Performed By: #### L 500.3400, L500.2500, L100.0100, L501.5200 ####[facility] [address] [place], [address] Eosinophils/100 WBC (Bld) 0.7 % Normal 0-5 [facility] Comment on above: Performed By: #### L 500.3400, L500.2500, L100.0100, L501.5200 ####[facility] [address] [place], [address] Erythrocyte distribution width (RBC) [Ratio] 15.5 % High 11.6-14.6 [facility] Comment on above: Performed By: #### L 500.3400, L500.2500, L100.0100, L501.5200 ####[facility] [address] [place], [address] Hematocrit (Bld) [Volume fraction] 45.4 % Normal 40-54 [facility] Comment on above: Performed By: #### L 500.3400, L500.2500, L100.0100, L501.5200 ####[facility] [address] [place], [address] Hemoglobin (Bld) [Mass/Vol] 15.3 g/dL Normal 13.0-16.5 [facility] Comment on above: Performed By: #### L 500.3400, L500.2500, L100.0100, L501.5200 ####[facility] [address] [place], [address] IG% 0.400 Normal 0.0-0.9 [facility] Comment on above: Result Comment: IG% - Immature Granulocytes (promyelocytes, myelocytes and metamyelocytes) > 1% indicates that a LEFT SHIFT is Present. Performed By: #### L 500.3400, L500.2500, L100.0100, L501.5200 ####[facility] [address] [place], [address] Lymphocytes/100 WBC (Bld) 31.6 % Normal 19-41 [facility] Comment on above: Performed By: #### L 500.3400, L500.2500, L100.0100, L501.5200 ####[facility] [address] [place], [address] MCH (RBC) [Entitic mass] 31.6 pg Normal 27.0-32.0 [facility] Comment on above: Performed By: #### L 500.3400, L500.2500, L100.0100, L501.5200 ####[facility] [address] [place], [address] MCHC (RBC) [Mass/Vol] 33.7 g/dL Normal 32-36 [facility] Comment on above: Performed By: #### L 500.3400, L500.2500, L100.0100, L501.5200 ####[facility] [address] [place], [address] MCV (RBC) [Entitic vol] 93.8 fL Normal 80-94 [facility] Comment on above: Performed By: #### L 500.3400, L500.2500, L100.0100, L501.5200 ####[facility] [address] [place], [address] Monocytes/100 WBC (Bld) 10.2 % High 0-10 [facility] Comment on above: Performed By: #### L 500.3400, L500.2500, L100.0100, L501.5200 ####[facility] [address] [place], [address] Neutrophils/100 WBC (Bld) 56.7 % Normal 47-70 [facility] Comment on above: Performed By: #### L 500.3400, L500.2500, L100.0100, L501.5200 ####[facility] [address] [place], [address] Nucleated RBC (Bld) [#/Vol] 0 10*3/uL Normal 0-5 [facility] Comment on above: Performed By: #### L 500.3400, L500.2500, L100.0100, L501.5200 ####[facility] [address] [place], [address] Platelet mean volume (Bld) [Entitic vol] 11.0 fL Normal 6.2-12.0 [facility] Comment on above: Performed By: #### L 500.3400, L500.2500, L100.0100, L501.5200 ####[facility] [address] [place], [address] Platelets (Bld) [#/Vol] 83 10*3/uL Low 150-450 [facility] Comment on above: Performed By: #### L 500.3400, L500.2500, L100.0100, L501.5200 ####[facility] [address] [place], [address] RBC (Bld) [#/Vol] 4.84 10*6/uL Normal 4.6-6.2 [facility] Comment on above: Performed By: #### L 500.3400, L500.2500, L100.0100, L501.5200 ####[facility] [address] [place], [address] RDW SD 52.7 fl High 35.1-43.9 [facility] Comment on above: Performed By: #### L 500.3400, L500.2500, L100.0100, L501.5200 ####[facility] [address] [place], [address] WBC (Bld) [#/Vol] 7.4 10*3/uL Normal 4.4-11.0 [facility] Comment on above: Performed By: #### L 500.3400, L500.2500, L100.0100, L501.5200 ####[facility] [address] [place], [address] Cardiac Cath Diagnosticon Cardiac Cath Diagnostic [facility] Imaging Services [address] [place] [address] Cardiac Cath Diagnostic MR#: [id number] Acct: [id number] Name: KELVIN LEE Rep #: [id number] : 1955 69 From: Carlton Keyes MD PCP: Dr. Lee Mathews MD Status:ADM IN Patient Name: KELVIN LEE Study Date: 03/24/2025 Performing: Carlton Keyes MD Ht: 68 inches 172.72 cm : 1955 Wt: 256.1 lbs 116 kg Age: 69 Gender: male BSA: 2.27 PROCEDURE(S) PERFORMED [id number])[facility] CLINICAL PROFILE AND INDICATIONS Indications: Cardiomyopathy Heart [...] multiple views using a 5 Fr. 4.0 Happy catheter. Right Coronary Artery selective angiography was then performed in multiple views using a 5 Fr. 4.0 Happy catheter. LV to AO pullback pressures were [...] Date Dictated: 03/24/25 1018 Date Transcribed: 03/24/251450 [employer]creational [employer] Director: [place] Signed Normal [facility] Cardiac catheterization repo rtOrdered By: Carlton Keyes on 03-24-2025 Cardiac catheterization study [facility] Imaging Services [address] [place] [address] Cardiac Cath Diagnostic MR#: [id number] Acct: [id number] Name: KELVIN LEE JrSavita Rep #:[id number] : 1955 69 From: Carlton Keyes MD PCP: Dr. Lee Mathews MD Status :ADM IN Patient Name: KELVIN LEE Study Date: 03/24/2025 Performing: Carlton Keyes MD Ht: 68 inches 172.72 cm : 1955 Wt: 256.1 lbs 116 kg Age: 69 Gender: male BSA: 2.27 PROCEDURE(S) PERFORMED [id number])[facility] CLINICAL PROFILE AND INDICATIONS Indications: Cardiomyopathy Heart [...] multiple views using a 5 Fr. 4.0 Happy catheter. Right Coronary Artery selective angiography was then performed in multiple views using a 5 Fr. 4.0 Happy catheter. LV to AO pullback pressures were [...] 03/24/25 1451 Date _ Carlton Keyes MD [facility] Signature: Date _ (if indicated) CC: Dr. Lee Mathews MD; Dr. Carlton Keyes MD; Dr. Derrick Chacon MD ~ Date Dictated: 03/24/25 1018 Date Transcribed: 03/24/25 1451 Recreational Programs Director: [place] Signed [facility] Work Phone: Eosinophil percentageOrdered By: Stanley Craig on 03-24-2025 Eosinophils/100 WBC (Bld) 0.7 % 0-5 [facility] Erythrocyte distribution wid th ratioOrdered By: Stanley Craig on 03-24-2025 Erythrocyte distribution width (RBC) [Ratio] 15.5 % High 11.6-14.6 [facility] Erythrocyte distribution wid th standard deviationOrdered By: Stanley Craig on 03-24-2025 Erythrocyte distribution width (RBC) [Ratio] 52.7 fl High 35.1-43.9 [facility] Hematocrit Auto (Bld) [Volum e fraction]Ordered By: Stanley Craig on 03-24-2025 Hematocrit (Bld) [Volume fraction] 45.4 % 40-54 [facility] Hemoglobin measurementOrdere d By: Stanley Craig on 03-24-2025 Hemoglobin (Bld) [Mass/Vol] 15.3 g/dL 13.0-16.5 [facility] Immature granulocytes/100 WB C Auto (Bld)Ordered By: Stanley Craig on 03-24-2025 Immature granulocytes/100 WBC (Bld) 0.400 % 0.0-0.9 [facility] Comment on above: IG% - Immature Granu locytes (promyelocytes, myelocytes and metamyelocytes) > 1% indicates that a LEFT SHIFT is Present. Laboratory - Chemistry and C hemistry - challengeOrdered By: Stanley Craig on 03-24-2025 AST [Catalytic activity/Vol] 60 U/L High <38 [facility] Liver Profileon 03-24-2025 Albumin [Mass/Vol] 3.4 g/dL Normal 3.4-4.8 [facility] Comment on above: Performed By: #### L 500.3400, L500.2500, L100.0100, L501.5200 ####[facility] [address] [place], [address] ALK PHOS 152 U/L High 40-129 [facility] Comment on above: Performed By: #### L 500.3400, L500.2500, L100.0100, L501.5200 ####[facility] [address] [place], [address] ALT [Catalytic activity/Vol] 80 U/L High <=46 [facility] Comment on above: Performed By: #### L 500.3400, L500.2500, L100.0100, L501.5200 ####[facility] [address] [place], [address] AST [Catalytic activity/Vol] 60 U/L High <=37 [facility] Comment on above: Performed By: #### L 500.3400, L500.2500, L100.0100, L501.5200 ####[facility] [address] [place], [address] Bilirubin [Mass/Vol] 1.30 mg/dL Normal 0.00-1.30 [facility] Comment on above: Performed By: #### L 500.3400, L500.2500, L100.0100, L501.5200 ####[facility] [address] [place], [address] Bilirubin.direct [Mass/Vol] 0.70 mg/dL High 0.00-0.30 [facility] Comment on above: Performed By: #### L 500.3400, L500.2500, L100.0100, L501.5200 ####[facility] [address] [place], [address] Globulin (S) [Mass/Vol] 2.3 g/dL Normal 2.2-4.2 [facility] Comment on above: Performed By: #### L 500.3400, L500.2500, L100.0100, L501.5200 ####[facility] [address] [place], [place], [address] T PROT 5.7 g/dL Low 5.9-8.4 [facility] Comment on above: Performed By: #### L 500.3400, L500.2500, L100.0100, L501.5200 ####[facility] [address] [place], [address] MCV (mean corpuscular volume ) determinationOrdered By: Stanley Craig on 03-24-2025 MCV (RBC) [Entitic vol] 93.8 fL 80-94 [facility] Magnesiumon 03-24-2025 Magnesium [Mass/Vol] 2.1 mg/dL Normal 1.5-2.2 [facility] Comment on above: Performed By: #### L 500.3400, L500.2500, L100.0100, L501.5200 ####[facility] [address] [place], [place], [address] Mean corpuscular hemoglobin (MCH) determinationOrdered By: Stanley Craig on 03-24-2025 MCH (RBC) [Entitic mass] 31.6 pg 27.0-32.0 [facility] Mean corpuscular hemoglobin concentration (MCHC) determinationOrdered By: Stanley Craig on 03-24-2025 MCHC (RBC) [Mass/Vol] 33.7 g/dL 32-36 [facility] Mean platelet volume determi nationOrdered By: Stanley Craig on 03-24-2025 Platelet mean volume (Bld) [Entitic vol] 11.0 fL 6.2-12.0 [facility] Monocyte percentageOrdered B y: Stanley Craig on 03-24-2025 Monocytes/100 WBC (Bld) 10.2 % High 0-10 [facility] Neutrophil percentageOrdered By: Stanley Craig on 03-24-2025 Neutrophils/100 WBC (Bld) 56.7 % 47-70 [facility] Nucleated red blood cell per centageOrdered By: Stanley Craig on 03-24-2025 Nucleated RBC/100 WBC (Bld) [Ratio] 0 % 0-5 [facility] Partial Thromboplast Timeon 03-24-2025 aPTT Coag (Bld) [Time] 34.6 s Normal 24.1-36.2 [facility] Comment on above: Order Comment: OKAY TO ADD PER DR. CRAIG Performed By: #### L 501.5200, L501.2300 #### [facility] [address] [place], [address] aPTT Coag (Bld) [Time] 87.8 s High 24.1-36.2 [facility] Comment on above: Order Comment: OKAY TO ADD PER DR. CRAIG Performed By: #### L 501.5200, L501.2300 #### [facility] [address] [place], [address] Phosphoruson 03-24-2025 Phosphate [Mass/Vol] 4.4 mg/dL Normal 2.7-4.5 [facility] Comment on above: Performed By: #### L 503.7505 #### [facility] [address] [place], [address] Platelet countOrdered By: Yonis Craig on 03-24-2025 Platelets (Bld) [#/Vol] 83 10*3/uL Low 150-450 [facility] RBC Auto (Bld) [#/Vol]Ordere d By: Stanley Craig on 03-24-2025 RBC (Bld) [#/Vol] 4.84 10*6/uL 4.6-6.2 [facility] Serum globulin measurementOr dered By: Stanley Craig on 03-24-2025 Globulin (S) [Mass/Vol] 2.3 g/dL 2.2-4.2 [facility] Serum or plasma alanine andre otransferase (ALT) measurementOrdered By: Stanley Craig on 03-24-2025 ALT [Catalytic activity/Vol] 80 U/L High <47 [facility] Serum or plasma albumin jennifer urement (mass/volume)Ordered By: Stanley Craig on 03-24-2025 Albumin [Mass/Vol] 3.4 g/dL 3.4-4.8 [facility] Serum or plasma alkaline elisabeth sphatase measurementOrdered By: Stanley Craig on 03-24-2025 ALP [Catalytic activity/Vol] 152 U/L High 40-129 [facility] Total proteinOrdered By: Ricky Craig on 03-24-2025 Protein [Mass/Vol] 5.7 g/dL Low 5.9-8.4 [facility] White blood cell (WBC) count Ordered By: Stanley Craig on 03-24-2025 WBC (Bld) [#/Vol] 7.4 10*3/uL 4.4-11.0 [facility] Basic Metabolic Profile (BMP )on 03-23-2025 BUN/CRE 21.2 RATIO High 10-20 [facility] Comment on above: Performed By: #### L 501.5200, L501.2300 #### [facility] [address] [place], [address] Calcium [Mass/Vol] 8.0 mg/dL Normal 7.6-11.0 [facility] Comment on above: Performed By: #### L 501.5200, L501.2300 #### [facility] [address] [place], [address] Chloride [Moles/Vol] 95 mmol/L Low 98-108 [facility] Comment on above: Performed By: #### L 501.5200, L501.2300 #### [facility] [address] [place], [address] CO2 [Moles/Vol] 35.2 mmol/L High 21.0-32.0 [facility] Comment on above: Performed By: #### L 501.5200, L501.2300 #### [facility] [address] [place], [address] Creatinine [Mass/Vol] 1.17 mg/dL Normal 0.70-1.20 [facility] Comment on above: Performed By: #### L 501.5200, L501.2300 #### [facility] [address] [place], [address] ECRCL 72.01 ml/min Normal 50-250 [facility] Comment on above: Performed By: #### L 501.5200, L501.2300 #### [facility] [address] [place], [address] GAP 9 Normal 5-15 [facility] Comment on above: Performed By: #### L 501.5200, L501.2300 #### [facility] [address] [place], [address] GFR/1.73 sq M.predicted among non-blacks MDRD (S/P/Bld) [Vol rate/Area] 67 mL/min/{1.73_m2} Normal >60 [facility] Comment on above: Result Comment: mL/m in/1.73m2 CKD-EPI Creatinine Equation (2020) Performed By: #### L 501.5200, L501.2300 #### [facility] [address] [place], [address] Glucose [Mass/Vol] 116 mg/dL High 70-99 [facility] Comment on above: Performed By: #### L 501.5200, L501.2300 #### [facility] [address] [place], [address] Potassium [Moles/Vol] 3.0 mmol/L Low 3.3-5.1 [facility] Comment on above: Performed By: #### L 501.5200, L501.2300 #### [facility] [address] [place], [address] Sodium [Moles/Vol] 140 mmol/L Normal 133-145 [facility] Comment on above: Performed By: #### L 501.5200, L501.2300 #### [facility] [address] [place], [address] Urea nitrogen [Mass/Vol] 25 mg/dL High 4-19 [facility] Comment on above: Performed By: #### L 501.5200, L501.2300 #### [facility] [address] [place], [address] CBC W/Diff, Automatedon 05-0 4-2024 Absolute Lymph 1.81 X10 3/uL Normal 0.83-4.51 [facility] Comment on above: Performed By: #### L 501.5200, L501.2300 #### [facility] [address] [place], [address] Absolute Neut 3.7 X10 3/uL Normal 2.0-7.7 [facility] Comment on above: Performed By: #### L 501.5200, L501.2300 #### [facility] [address] [place], [address] Basophils/100 WBC (Bld) 0.3 % Normal 0-1 [facility] Comment on above: Performed By: #### L 501.5200, L501.2300 #### [facility] [address] [place], [address] Eosinophils/100 WBC (Bld) 1.3 % Normal 0-5 [facility] Comment on above: Performed By: #### L 501.5200, L501.2300 #### [facility] [address] [place], [address] Erythrocyte distribution width (RBC) [Ratio] 15.3 % High 11.6-14.6 [facility] Comment on above: Performed By: #### L 501.5200, L501.2300 #### [facility] [address] [place], [address] Hematocrit (Bld) [Volume fraction] 44.9 % Normal 40-54 [facility] Comment on above: Performed By: #### L 501.5200, L501.2300 #### [facility] [address] [place], [address] Hemoglobin (Bld) [Mass/Vol] 15.0 g/dL Normal 13.0-16.5 [facility] Comment on above: Performed By: #### L 501.5200, L501.2300 #### [facility] [address] [place], [address] IG% 0.500 Normal 0.0-0.9 [facility] Comment on above: Result Comment: IG% - Immature Granulocytes (promyelocytes, myelocytes and metamyelocytes) > 1% indicates that a LEFT SHIFT is Present. Performed By: #### L 501.5200, L501.2300 #### [facility] [address] [place], [address] Lymphocytes/100 WBC (Bld) 28.8 % Normal 19-41 [facility] Comment on above: Performed By: #### L 501.5200, L501.2300 #### [facility] [address] [place], [address] MCH (RBC) [Entitic mass] 31.6 pg Normal 27.0-32.0 [facility] Comment on above: Performed By: #### L 501.5200, L501.2300 #### [facility] [address] [place], [address] MCHC (RBC) [Mass/Vol] 33.4 g/dL Normal 32-36 [facility] Comment on above: Performed By: #### L 501.5200, L501.2300 #### [facility] [address] [place], [address] MCV (RBC) [Entitic vol] 94.7 fL High 80-94 [facility] Comment on above: Performed By: #### L 501.5200, L501.2300 #### [facility] [address] [place], [address] Monocytes/100 WBC (Bld) 10.5 % High 0-10 [facility] Comment on above: Performed By: #### L 501.5200, L501.2300 #### [facility] [address] [place], [address] Neutrophils/100 WBC (Bld) 58.6 % Normal 47-70 [facility] Comment on above: Performed By: #### L 501.5200, L501.2300 #### [facility] [address] [place], [address] Nucleated RBC (Bld) [#/Vol] 0 10*3/uL Normal 0-5 [facility] Comment on above: Performed By: #### L 501.5200, L501.2300 #### [facility] [address] [place], [address] Platelet mean volume (Bld) [Entitic vol] 10.6 fL Normal 6.2-12.0 [facility] Comment on above: Performed By: #### L 501.5200, L501.2300 #### [facility] [address] [place], [address] Platelets (Bld) [#/Vol] 82 10*3/uL Low 150-450 [facility] Comment on above: Performed By: #### L 501.5200, L501.2300 #### [facility] [address] [place], [address] RBC (Bld) [#/Vol] 4.74 10*6/uL Normal 4.6-6.2 [facility] Comment on above: Performed By: #### L 501.5200, L501.2300 #### [facility] [address] [place], [address] RDW SD 52.9 fl High 35.1-43.9 [facility] Comment on above: Performed By: #### L 501.5200, L501.2300 #### [facility] [address] [place], [address] WBC (Bld) [#/Vol] 6.3 10*3/uL Normal 4.4-11.0 [facility] Comment on above: Performed By: #### L 501.5200, L501.2300 #### [facility] [address] [place], [address] Liver Profileon 03-23-2025 Albumin [Mass/Vol] 3.4 g/dL Normal 3.4-4.8 [facility] Comment on above: Performed By: #### L 501.5200, L501.2300 #### [facility] [address] [place], [address] ALK PHOS 147 U/L High 40-129 [facility] Comment on above: Performed By: #### L 501.5200, L501.2300 #### [facility] [address] [place], [address] ALT [Catalytic activity/Vol] 86 U/L High <=46 [facility] Comment on above: Performed By: #### L 501.5200, L501.2300 #### [facility] [address] [place], [address] AST [Catalytic activity/Vol] 69 U/L High <=37 [facility] Comment on above: Performed By: #### L 501.5200, L501.2300 #### [facility] [address] [place], [address] Bilirubin [Mass/Vol] 1.02 mg/dL Normal 0.00-1.30 [facility] Comment on above: Performed By: #### L 501.5200, L501.2300 #### [facility] [address] [place], [address] Bilirubin.direct [Mass/Vol] 0.57 mg/dL High 0.00-0.30 [facility] Comment on above: Performed By: #### L 501.5200, L501.2300 #### [facility] [address] [place], [address] Globulin (S) [Mass/Vol] 2.1 g/dL Low 2.2-4.2 [facility] Comment on above: Performed By: #### L 501.5200, L501.2300 #### [facility] [address] [place], [address] T PROT 5.5 g/dL Low 5.9-8.4 [facility] Comment on above: Performed By: #### L 501.5200, L501.2300 #### [facility] [address] [place], [address] Magnesiumon 03-23-2025 Magnesium [Mass/Vol] 2.0 mg/dL Normal 1.5-2.2 [facility] Comment on above: Order Comment: OKAY TO ADD PER DR. CRAIG Performed By: #### L 501.5200, L501.2300 #### [facility] [address] [place], [address] Magnesium [Mass/Vol] 2.0 mg/dL Normal 1.5-2.2 [facility] Comment on above: Performed By: #### L 501.5200, L501.2300 #### [facility] [address] [place], [address] Partial Thromboplast Timeon 03-23-2025 aPTT Coag (Bld) [Time] 83.8 s High 24.1-36.2 [facility] Comment on above: Order Comment: Comme nts: Heparin gtt Performed By: #### L 503.7505 #### [facility] [address] [place], [address] aPTT Coag (Bld) [Time] 150.3 s Invalid Interpretation Code 24.1-36.2 [facility] Comment on above: Result Comment: CRIT ICAL VALUE CALLED TO CODI LAMAS 03/23/25 1223 Rik Lowe. RESULTS READ BACK BY SAME. Performed By: #### L [id number] #### [facility] [address] [place], [address] aPTT Coag (Bld) [Time] 212.3 s Invalid Interpretation Code 24.1-36.2 [facility] Comment on above: Result Comment: CRIT ICAL VALUE CALLED TO DILIP CASAS 03/23/25 0357 Rik Lowe. RESULTS READ BACK BY SAME. Performed By: #### L 300.4310, L300.3900 #### [facility] [address] [place], [address] Phosphoruson 03-23-2025 Phosphate [Mass/Vol] 3.7 mg/dL Normal 2.7-4.5 [facility] Comment on above: Order Comment: OKAY TO ADD PER DR. CRAIG Performed By: #### L 501.5200, L501.2300 #### [facility] [address] [place], [address] Basic Metabolic Profile (BMP )on 03-22-2025 BUN/CRE 20.9 RATIO High 10-20 [facility] Comment on above: Performed By: #### L [id number] #### [facility] [address] [place], [address] Calcium [Mass/Vol] 8.0 mg/dL Normal 7.6-11.0 [facility] Comment on above: Performed By: #### L 503.7505 #### [facility] [address] [place], [address] Chloride [Moles/Vol] 94 mmol/L Low 98-108 [facility] Comment on above: Performed By: #### L 503.7505 #### [facility] [address] [place], [address] CO2 [Moles/Vol] 30.7 mmol/L Normal 21.0-32.0 [facility] Comment on above: Performed By: #### L 503.7505 #### [facility] [address] [place], [address] Creatinine [Mass/Vol] 1.18 mg/dL Normal 0.70-1.20 [facility] Comment on above: Performed By: #### L 503.7505 #### [facility] [address] [place], [address] ECRCL 71.40 ml/min Normal 50-250 [facility] Comment on above: Performed By: #### L 503.7505 #### [facility] [address] [place], [address] GAP 12 Normal 5-15 [facility] Comment on above: Performed By: #### L 503.7505 #### [facility] [address] [place], [address] GFR/1.73 sq M.predicted among non-blacks MDRD (S/P/Bld) [Vol rate/Area] 66 mL/min/{1.73_m2} Normal >60 [facility] Comment on above: Result Comment: mL/m in/1.73m2 CKD-EPI Creatinine Equation (2020) Performed By: #### L 503.7505 #### [facility] [address] [place], [address] Glucose [Mass/Vol] 95 mg/dL Normal 70-99 [facility] Comment on above: Performed By: #### L 503.0085 #### [facility] [address] [place], [address] Potassium [Moles/Vol] 3.5 mmol/L Normal 3.3-5.1 [facility] Comment on above: Performed By: #### L [id number] #### [facility] [address] [place], [address] Sodium [Moles/Vol] 137 mmol/L Normal 133-145 [facility] Comment on above: Performed By: #### L [id number] #### [facility] [address] [place], [address] Urea nitrogen [Mass/Vol] 25 mg/dL High 4-19 [facility] Comment on above: Performed By: #### L 503.3255 #### [facility] [address] [place], [address] CBC W/Diff, Automatedon 05-0 3-5 Absolute Lymph 2.80 X10 3/uL Normal 0.83-4.51 [facility] Comment on above: Performed By: #### L 503.8745 #### [facility] [address] [place], [address] Absolute Neut 4.2 X10 3/uL Normal 2.0-7.7 [facility] Comment on above: Performed By: #### L 503.7015 #### [facility] [address] [place], [address] Basophils/100 WBC (Bld) 0.3 % Normal 0-1 [facility] Comment on above: Performed By: #### L 537.9345 #### [facility] [address] [place], [address] Eosinophils/100 WBC (Bld) 0.9 % Normal 0-5 [facility] Comment on above: Performed By: #### L [id number] #### [facility] [address] [place], [address] Erythrocyte distribution width (RBC) [Ratio] 15.4 % High 11.6-14.6 [facility] Comment on above: Performed By: #### L 503.7505 #### [facility] [address] [place], [address] Hematocrit (Bld) [Volume fraction] 46.4 % Normal 40-54 [facility] Comment on above: Performed By: #### L [id number] #### [facility] [address] [place], [address] Hemoglobin (Bld) [Mass/Vol] 16.0 g/dL Normal 13.0-16.5 [facility] Comment on above: Performed By: #### L [id number] #### [facility] [address] [place], [address] IG% 0.400 Normal 0.0-0.9 [facility] Comment on above: Result Comment: IG% - Immature Granulocytes (promyelocytes, myelocytes and metamyelocytes) > 1% indicates that a LEFT SHIFT is Present. Performed By: #### L [id number] #### [facility] [address] [place], [address] Lymphocytes/100 WBC (Bld) 35.9 % Normal 19-41 [facility] Comment on above: Performed By: #### L [id number] #### [facility] [address], [address] MCH (RBC) [Entitic mass] 32.3 pg High 27.0-32.0 [facility] Comment on above: Performed By: #### L 503.1025 #### [facility] [address] [place], [address] MCHC (RBC) [Mass/Vol] 34.5 g/dL Normal 32-36 [facility] Comment on above: Performed By: #### L 503.7505 #### [facility] [address] [place], [address] MCV (RBC) [Entitic vol] 93.7 fL Normal 80-94 [facility] Comment on above: Performed By: #### L [id number] #### [facility] [address] [place], [address] Monocytes/100 WBC (Bld) 9.2 % Normal 0-10 [facility] Comment on above: Performed By: #### L 503.7505 #### [facility] [address] [place], [address] Neutrophils/100 WBC (Bld) 53.3 % Normal 47-70 [facility] Comment on above: Performed By: #### L 503.7505 #### [facility] [address] [place], [address] Nucleated RBC (Bld) [#/Vol] 0 10*3/uL Normal 0-5 [facility] Comment on above: Performed By: #### L 503.7505 #### [facility] [address] [place], [address] Platelet mean volume (Bld) [Entitic vol] 11.3 fL Normal 6.2-12.0 [facility] Comment on above: Performed By: #### L 503.7505 #### [facility] [address] [place], [address] Platelets (Bld) [#/Vol] 86 10*3/uL Low 150-450 [facility] Comment on above: Performed By: #### L 503.7505 #### [facility] [address] [place], [place], [address] RBC (Bld) [#/Vol] 4.95 10*6/uL Normal 4.6-6.2 [facility] Comment on above: Performed By: #### L [id number] #### [facility] [address] [place], [place], [address] ([address] RDW SD 52.3 fl High 35.1-43.9 [facility] Comment on above: Performed By: #### L 461.7505 #### [facility] [address] [place], [address] WBC (Bld) [#/Vol] 7.8 10*3/uL Normal 4.4-11.0 [facility] Comment on above: Performed By: #### L 714.7505 #### [facility] [address] [place], [place], [address] International normalized rat io (INR) calculationOrdered By: Stanley Craig on 03-22-2025 INR Coag (Bld) [Relative time] 1.6 {INR} [facility] L499.0042on 03-22-2025 Trop T High Sen 42 ng/L High <=22 [facility] Comment on above: Performed By: #### L 300.4310, L300.3900 #### [facility] [place], [address] L499.0043on 03-22-2025 Trop T High Sen 40 ng/L High <=22 [facility] Comment on above: Performed By: #### L 499.0043 #### [facility] [address] [place], [address] L501.4021on 03-22-2025 Trop T High Sen 43 ng/L High <=22 [facility] Comment on above: Performed By: #### L [id number] #### [facility] [address] [place], [address] L503.7505on 03-22-2025 Natriuretic peptide B (Bld) [Mass/Vol] 6426 pg/mL High <=900 [facility] Comment on above: Result Comment: Hear t Failure Unlikely: < 300 pg/mL Heart Failure Likely < 50 Years: > 450 pg/mL 50-75 Years: > 900 pg/mL >75 Years: > 1800 pg/mL Performed By: #### L 503.7505 #### [facility] [address] [place], [address] Liver Profileon 03-22-2025 Albumin [Mass/Vol] 3.4 g/dL Normal 3.4-4.8 [facility] Comment on above: Performed By: #### L 503.7505 #### [facility] [address] [place], [address] ALK PHOS 166 U/L High 40-129 [facility] Comment on above: Performed By: #### L 503.7505 #### [facility] [address] [place], [address] ALT [Catalytic activity/Vol] 108 U/L High <=46 [facility] Comment on above: Performed By: #### L 503.7505 #### [facility] [address] [place], [address] AST [Catalytic activity/Vol] 92 U/L High <=37 [facility] Comment on above: Performed By: #### L 503.7505 #### [facility] [address] [place], [address] Bilirubin [Mass/Vol] 1.36 mg/dL High 0.00-1.30 [facility] Comment on above: Performed By: #### L 503.7505 #### [facility] [address] [place], [address] Bilirubin.direct [Mass/Vol] 0.68 mg/dL High 0.00-0.30 [facility] Comment on above: Performed By: #### L 184.4115 #### [facility] [address] [place], [address] Globulin (S) [Mass/Vol] 2.4 g/dL Normal 2.2-4.2 [facility] Comment on above: Performed By: #### L 360.3995 #### [facility] [address] [place], [address] T PROT 5.9 g/dL Normal 5.9-8.4 [facility] Comment on above: Performed By: #### L 601.2615 #### [facility] [address] [place], [address] Magnesiumon 03-22-2025 Magnesium [Mass/Vol] 2.0 mg/dL Normal 1.5-2.2 [facility] Comment on above: Performed By: #### L 893.7125 #### [facility] [address] [place], [address] Partial Thromboplast Timeon 03-22-2025 aPTT Coag (Bld) [Time] 29.9 s Normal 24.1-36.2 [facility] Comment on above: Performed By: #### L 300.4310, L300.3900 #### [facility] [address] [place], [address] Phosphoruson 03-22-2025 Phosphate [Mass/Vol] 3.6 mg/dL Normal 2.7-4.5 [facility] Comment on above: Performed By: #### L 681.8035 #### [facility] [address] [place], [address] Prothrombin Time w/INRon INR Coag (PPP) [Relative time] 1.6 {INR} Normal [facility] Comment on above: Performed By: #### L 300.4310, L300.3900 #### [facility] [address] [place], [address] PT Coag (PPP) [Time] 19.1 s High 11.7-14.9 [facility] [facility] Comment on above: Performed By: #### L 300.4310, L300.3900 #### [facility] [address] [place], [address] Prothrombin timeOrdered By: Stanley Craig on 03-22-2025 PT Coag (PPP) [Time] 19.1 s High 11.7-14.9 [facility] Troponin T.cardiac [Mass/vol ume] in Serum or Plasma by High sensitivity methodOrdered By: Krissy Freitas on 03-22-2025 Troponin T.cardiac High sensitivity method [Mass/Vol] 40 ng/L High <22 [facility] Troponin T.cardiac High sensitivity method [Mass/Vol] 42 ng/L High <22 [facility] Troponin T.cardiac High sensitivity method [Mass/Vol] 43 ng/L High <22 [facility] Comment on above: Delta: 39 on CBC W/Diff, Automatedon Absolute Lymph 2.25 X10 3/uL Normal 0.83-4.51 [facility] Comment on above: Performed By: #### L 100.0100, L501.9520, L501.2300, L500.4100, L500.4050 ####[facility] [address] [place], [address] Absolute Neut 4.1 X10 3/uL Normal 2.0-7.7 [facility] Comment on above: Performed By: #### L 100.0100, L501.9520, L501.2300, L500.4100, L500.4050 ####[facility] [address] [place], [address] Basophils/100 WBC (Bld) 0.1 % Normal 0-1 [facility] Comment on above: Performed By: #### L 100.0100, L501.9520, L501.2300, L500.4100, L500.4050 ####[facility] [address] [place], [address] Eosinophils/100 WBC (Bld) 0.3 % Normal 0-5 [facility] Comment on above: Performed By: #### L 100.0100, L501.9520, L501.2300, L500.4100, L500.4050 ####[facility] [address] [place], [address] Erythrocyte distribution width (RBC) [Ratio] 15.4 % High 11.6-14.6 [facility] Comment on above: Performed By: #### L 100.0100, L501.9520, L501.2300, L500.4100, L500.4050 ####[facility] [address] [place], [address] Hematocrit (Bld) [Volume fraction] 45.2 % Normal 40-54 [facility] Comment on above: Performed By: #### L 100.0100, L501.9520, L501.2300, L500.4100, L500.4050 ####[facility] [address] [place], [address] Hemoglobin (Bld) [Mass/Vol] 15.0 g/dL Normal 13.0-16.5 [facility] Comment on above: Performed By: #### L 100.0100, L501.9520, L501.2300, L500.4100, L500.4050 ####[facility] [address] [place], [address] IG% 0.400 Normal 0.0-0.9 [facility] Comment on above: Result Comment: IG% - Immature Granulocytes (promyelocytes, myelocytes and metamyelocytes) > 1% indicates that a LEFT SHIFT is Present. Performed By: #### L 100.0100, L501.9520, L501.2300, L500.4100, L500.4050 ####[facility] [address] [place], [address] Lymphocytes/100 WBC (Bld) 31.8 % Normal 19-41 [facility] Comment on above: Performed By: #### L 100.0100, L501.9520, L501.2300, L500.4100, L500.4050 ####[facility] [address] [place], [address] MCH (RBC) [Entitic mass] 31.4 pg Normal 27.0-32.0 [facility] Comment on above: Performed By: #### L 100.0100, L501.9520, L501.2300, L500.4100, L500.4050 ####[facility] [address] [place], [address] MCHC (RBC) [Mass/Vol] 33.2 g/dL Normal 32-36 [facility] Comment on above: Performed By: #### L 100.0100, L501.9520, L501.2300, L500.4100, L500.4050 ####[facility] [address] [place], [address] MCV (RBC) [Entitic vol] 94.8 fL High 80-94 [facility] Comment on above: Performed By: #### L 100.0100, L501.9520, L501.2300, L500.4100, L500.4050 ####[facility] [address] [place], [address] Monocytes/100 WBC (Bld) 9.5 % Normal 0-10 [facility] Comment on above: Performed By: #### L 100.0100, L501.9520, L501.2300, L500.4100, L500.4050 ####[facility] [address] [place], [address] Neutrophils/100 WBC (Bld) 57.9 % Normal 47-70 [facility] Comment on above: Performed By: #### L 100.0100, L501.9520, L501.2300, L500.4100, L500.4050 ####[facility] [address] [place], [address] Nucleated RBC (Bld) [#/Vol] 0 10*3/uL Normal 0-5 [facility] Comment on above: Performed By: #### L 100.0100, L501.9520, L501.2300, L500.4100, L500.4050 ####[facility] [address] [place], [address] Platelet mean volume (Bld) [Entitic vol] 11.1 fL Normal 6.2-12.0 [facility] Comment on above: Performed By: #### L 100.0100, L501.9520, L501.2300, L500.4100, L500.4050 ####[facility] [address] [place], [address] Platelets (Bld) [#/Vol] 83 10*3/uL Low 150-450 [facility] Comment on above: Performed By: #### L 100.0100, L501.9520, L501.2300, L500.4100, L500.4050 ####[facility] [address] [place], [address] RBC (Bld) [#/Vol] 4.77 10*6/uL Normal 4.6-6.2 [facility] Comment on above: Performed By: #### L 100.0100, L501.9520, L501.2300, L500.4100, L500.4050 ####[facility] [address] [place], [address] RDW SD 52.9 fl High 35.1-43.9 [facility] Comment on above: Performed By: #### L 100.0100, L501.9520, L501.2300, L500.4100, L500.4050 ####[facility] [address] [place], [address] WBC (Bld) [#/Vol] 7.1 10*3/uL Normal 4.4-11.0 [facility] Comment on above: Performed By: #### L 100.0100, L501.9520, L501.2300, L500.4100, L500.4050 ####[facility] [address] [place], [address] Calculated very low density lipoprotein (VLDL) cholesterol measurementOrdered By: Sophia Lowe on 03-21-2025 Calculated very low density lipoprotein (VLDL) cholesterol measurement 9 mg/dL 5-40 [facility] Comprehensive Metabolic Prof ilon 03-21-2025 Albumin [Mass/Vol] 3.4 g/dL Normal 3.4-4.8 [facility] Comment on above: Performed By: #### L 100.0100, L501.9520, L501.2300, L500.4100, L500.4050 ####[facility] [address] [place], [address] Albumin/Globulin [Mass ratio] 1.4 {ratio} Normal 0.9-2.4 [facility] Comment on above: Performed By: #### L 100.0100, L501.9520, L501.2300, L500.4100, L500.4050 ####[facility] [address] [place], [address] ALK PHOS 178 U/L High 40-129 [facility] Comment on above: Performed By: #### L 100.0100, L501.9520, L501.2300, L500.4100, L500.4050 ####[facility] [address] [place], [address] ALT [Catalytic activity/Vol] 128 U/L High <=46 [facility] Comment on above: Performed By: #### L 100.0100, L501.9520, L501.2300, L500.4100, L500.4050 ####[facility] [address] [place], [address] AST [Catalytic activity/Vol] 135 U/L High <=37 [facility] Comment on above: Performed By: #### L 100.0100, L501.9520, L501.2300, L500.4100, L500.4050 ####[facility] [address] [place], [address] Bilirubin [Mass/Vol] 1.09 mg/dL Normal 0.00-1.30 [facility] Comment on above: Performed By: #### L 100.0100, L501.9520, L501.2300, L500.4100, L500.4050 ####[facility] [address] [place], [address] BUN/CRE 19.2 RATIO Normal 10-20 [facility] Comment on above: Performed By: #### L 100.0100, L501.9520, L501.2300, L500.4100, L500.4050 ####[facility] [address] [place], [address] Calcium [Mass/Vol] 8.0 mg/dL Normal 7.6-11.0 [facility] Comment on above: Performed By: #### L 100.0100, L501.9520, L501.2300, L500.4100, L500.4050 ####[facility] [address] [place], [address] Chloride [Moles/Vol] 94 mmol/L Low 98-108 [facility] Comment on above: Performed By: #### L 100.0100, L501.9520, L501.2300, L500.4100, L500.4050 ####[facility] [address] [place], [address] CO2 [Moles/Vol] 29.4 mmol/L Normal 21.0-32.0 [facility] Comment on above: Performed By: #### L 100.0100, L501.9520, L501.2300, L500.4100, L500.4050 ####[facility] [address] [place], [address] Creatinine [Mass/Vol] 1.40 mg/dL High 0.70-1.20 [facility] Comment on above: Performed By: #### L 100.0100, L501.9520, L501.2300, L500.4100, L500.4050 ####[facility] [address] [place], [address] ECRCL 61.25 ml/min Normal 50-250 [facility] Comment on above: Performed By: #### L 100.0100, L501.9520, L501.2300, L500.4100, L500.4050 ####[facility] [address] [place], [address] GAP 12 Normal 5-15 [facility] Comment on above: Performed By: #### L 100.0100, L501.9520, L501.2300, L500.4100, L500.4050 ####[facility] [address] [place], [address] GFR/1.73 sq M.predicted among non-blacks MDRD (S/P/Bld) [Vol rate/Area] 54 mL/min/{1.73_m2} Low >60 [facility] Comment on above: Result Comment: mL/m in/1.73m2 CKD-EPI Creatinine Equation (2020) Performed By: #### L 100.0100, L501.9520, L501.2300, L500.4100, L500.4050 ####[facility] [address] [place], [address] Globulin (S) [Mass/Vol] 2.4 g/dL Normal 2.2-4.2 [facility] Comment on above: Performed By: #### L 100.0100, L501.9520, L501.2300, L500.4100, L500.4050 ####[facility] [address] [place], [address] Glucose [Mass/Vol] 92 mg/dL Normal 70-99 [facility] Comment on above: Performed By: #### L 100.0100, L501.9520, L501.2300, L500.4100, L500.4050 ####[facility] [address] [place], [address] Potassium [Moles/Vol] 3.7 mmol/L Normal 3.3-5.1 [facility] Comment on above: Performed By: #### L 100.0100, L501.9520, L501.2300, L500.4100, L500.4050 ####[facility] [address] [place], [address] Sodium [Moles/Vol] 135 mmol/L Normal 133-145 [facility] Comment on above: Performed By: #### L 100.0100, L501.9520, L501.2300, L500.4100, L500.4050 ####[facility] [address] [place], [address] T PROT 5.8 g/dL Low 5.9-8.4 [facility] Comment on above: Performed By: #### L 100.0100, L501.9520, L501.2300, L500.4100, L500.4050 ####[facility] [address] [place], [address] Urea nitrogen [Mass/Vol] 27 mg/dL High 4-19 [facility] Comment on above: Performed By: #### L 100.0100, L501.9520, L501.2300, L500.4100, L500.4050 ####[facility] [address] [place], [address] Consultation - Cardiologyon 03-21-2025 Consultation - Cardiology [facility] Medical Records Department [address] [place] [address] Consultation - Cardiology 03/21/25 1305 MR#: [id number] Acct: [id number] Name: KELVIN LEE Rep #: [id number] : 1955 69 From: Krissy Freitas MD PCP: Dr. Lee Mathews MD Status:ADM IN Location: [place] [address] Assessment Plan Assessment/Plan (1) Dyspnea: (2) History [...] pain In the on review of the cardiac care nurse noted the patient had A-fib with RVR Has been on IV Cardizem which discontinued. Due to negative inotropic effect patient already had severe LV dysfunction with Will continue on on beta-shaniqua metoprolol in addition to low-dose digoxin. Will evaluate with BNP/trops. Will continue to monitor and follow-up clinically. Krissy Freitas MD,LOCATED WITHIN [facility] HPI Consult Data Date of Consult: 03/21/25 HPI Narrative Reason for Consultation: Acute systolic heart failure/A-fib with RVR HPI Narrative: KELVIN LEE, is a 69 M who presents [facility] Medical History PAF (paroxysmal atrial fibrillation) CKD [...] with the nursing staff Review of the cardiac care nurse showed A-fib with RVR Cardiac exam S1-S2 [...] (Auto) 31.0, (more content not included)... Normal [facility] Echo Complete W/ Contraston 03-21-2025 Echo Complete W/ Contrast [facility] [address] [place] [address] Echo Complete W/ Contrast 03/21/25 09 MR#: [id number] Acct: [id number] Name: KELVIN LEE JrSavita Rep #: [id number] : 1955 69 From: Krissy Freitas MD Attending Dr: Dr. Stanley Craig MD Status: ADM IN Ordering Dr: Sophia Lowe MD Date: 03/21/25 Location: [facility] Sex: M C Admitted: 03/20/25 Reason For [...] Dictated: 03/21/25 09 Date Transcribed: 03/21/25 120 Recreational Programs Director: Signed Normal [facility] Echocardiogram study reportO rdered By: Krissy Freitas on 03-21-2025 Study report [facility] [address] [place] [address] Echo Complete W/ Contrast 03/21/25900 MR#: [id number] Acct: [id number] Name: KELVIN LEE Jr. Rep #:[id number] : 1955 69 From: Krissy Freitas MD Attending Dr: Dr. Stanley Craig MD Status: ADM IN Ordering Dr: Sophia Lowe MD Date: 03/21/25 Location: [facility] Sex: M C Admitted: 03/20/25 Reason For [...] Dictated: 03/21/25 09 Date Transcribed: 03/21/25 120 Recreational Programs Director: Signed [facility] Work Phone: Electrocardiogram reportOrde red By: Carlton Keyes on 03-21-2025 EKG study [facility] Cardiovascular Services [address] [place] [address] 12 Lead EKG 03/20/25 1736 MR#: [id number] Acct: [id number] Name: KELVIN LEE Jr. Rep #:[id number] : 1955 69 From: Carlton Keyes MD Attending Dr: Dr. Stanley Craig MD Status: ADM IN Ordering Dr: Roselia Han te: 03/20/25 Location: [facility] Sex: M C Admitted: 03/20/25 Test Reason [...] Abnormal ECG Confirmed by STEPHY DENTON, CARLTON ([id number]), assignment desk editor ALIN AIKEN ([id number]) on 03/21/2025 8:20:23 AM Referred By: Confirmed By: CARLTON KEYES MD 03/21/25 0820 Date _ Carlton Keyes MD CC: Dr. Lee Mathews MD; Dr. Stanley Craig MD; FELICIA Murillo ~ Signed [facility] Work Phone: [phone] 03-21-2025 Trop T High Sen 37 ng/L High <=22 [facility] Comment on above: Performed By: #### L 300.0133, L300.3902 #### [facility] [address] [place], [address] LDL calc ser/plasOrdered By: Sophia Lowe on 03-21-2025 Cholesterol in LDL [Mass/Vol] 44 mg/dL [facility] Comment on above: Ghndnvidle=911-681 m g/dL & Higher Ccch=575 mg/dL or greater Lipid Profileon 03-21-2025 CHOL:HDL 2.25 Normal [facility] Comment on above: Performed By: #### L 100.0100, L501.9520, L501.2300, L500.4100, L500.4050 ####[facility] [address] [place], [address] Cholesterol [Mass/Vol] 96 mg/dL Normal <=200 [facility] Comment on above: Result Comment: Chol esterol level, Desirable <200 mg/dL Borderline high cholesterol 200-239 mg/dL High cholesterol >=240 mg/dL Recommendations of the NCEP Adult Treatment Panel for the following risk-cutoff thresholds for the [place] population. Performed By: #### L 100.0100, L501.9520, L501.2300, L500.4100, L500.4050 ####[facility] [address] [place], [address] Cholesterol in HDL [Mass/Vol] 43 mg/dL Normal [facility] Comment on above: Result Comment: Marie onal Cholesterol Education Program (NCEP) guidelines: <40 mg/dL: Low HDL-cholesterol (major risk factor for CHD) >= 60 mg/dL: High HDL-cholesterol (negative risk factor for CHD) HDL-cholesterol is affected by a number of factors, e.g. smoking, exercise, hormones, sex and age. Performed By: #### L 100.0100, L501.9520, L501.2300, L500.4100, L500.4050 ####[facility] [address] [place], [address] Cholesterol in LDL [Mass/Vol] 44 mg/dL Normal [facility] Comment on above: Result Comment: Bord avajlo=349-184 mg/dL Higher Xwar=324 mg/dL or greater Performed By: #### L 100.0100, L501.9520, L501.2300, L500.4100, L500.4050 ####[facility] [address] [place], [address] Cholesterol in VLDL [Mass/Vol] 9 mg/dL Normal 5-40 [facility] Comment on above: Performed By: #### L 100.0100, L501.9520, L501.2300, L500.4100, L500.4050 ####[facility] [address] [place], [address] Triglyceride [Mass/Vol] 47 mg/dL Normal [facility] Comment on above: Result Comment: The drugs N-Acetylcysteine and Metamizole may falsely depress this assay. Normal range: <150 mg/dL Borderline High: 150-199 mg/dL High: 200-499 mg/dL Very High: >500 mg/dL Performed By: #### L 100.0100, L501.9520, L501.2300, L500.4100, L500.4050 ####[facility] [address] [place], [address] Phosphoruson 03-21-2025 Phosphate [Mass/Vol] 3.9 mg/dL Normal 2.7-4.5 [facility] Comment on above: Performed By: #### L 100.0100, L501.9520, L501.2300, L500.4100, L500.4050 ####[facility] [address] [place], [address] Screening total cholesterol/ high density lipoprotein (HDL) cholesterol ratioOrdered By: Sophia Lowe on 03-21-2025 Cholesterol.total/Choles terol in HDL [Mass ratio] 2.25 {ratio} [facility] Serum or plasma albumin/glob ulin mass ratioOrdered By: Sophia Lowe on 03-21-2025 Albumin/Globulin [Mass ratio] 1.4 {ratio} 0.9-2.4 [facility] Serum or plasma cholesterol in HDL measurement (mass/volume)Ordered By: Sophia Lowe on 03-21-2025 Cholesterol in HDL [Mass/Vol] 43 mg/dL >40 [facility] Comment on above: National Cholesterol Education Program (NCEP) guidelines:<40 mg/dL: Low HDL-cholesterol (major risk factor for CHD)>= 60 mg/dL: High HDL-cholesterol (negative risk factor for CHD)HDL-cholesterol is affected by a number of factors, e.g. smoking, exercise, hormones, sex and age. Serum or plasma cholesterol measurement (mass/volume)Ordered By: Sophia Lowe on 03-21-2025 Cholesterol [Mass/Vol] 96 mg/dL <201 [facility] Comment on above: Cholesterol level, D esirable <200 mg/dLBorderline high cholesterol 200-239 mg/dLHigh cholesterol >=240 mg/dLRecommendations of the NCEP Adult Treatment Panel for the following risk-cutoff thresholds for the [place] population. TSH DL <= 0.005 mIU/L QnOrde red By: Sophia Lowe on 03-21-2025 TSH Qn 1.460 uIU/mL 0.300-4.200 [facility] Thyroid Stim Hormone (TSH)on 03-21-2025 TSH 1.460 uIU/mL Normal 0.300-4.200 [facility] Comment on above: Performed By: #### L 100.0100, L501.9520, L501.2300, L500.4100, L500.4050 ####[facility] [address] [facility] [place], [place], [address] Triglycerides measurementOrd ered By: Sophia Lowe on 03-21-2025 Triglyceride [Mass/Vol] 47 mg/dL <199 [facility] Comment on above: The drugs N-Acetylcy steine and Metamizole may falsely depress this assay. Normal range: <150 mg/dLBorderline High: 150-199 mg/dLHigh: 200-499 mg/dLVery High: >500 mg/dL 12 Lead EKGon 03-20-2025 12 Lead EKG [facility] Cardiovascular Services [address] [place] [address] 12 Lead EKG 03/20/25 1736 MR#: [id number] Acct: [id number] Name: KELVIN LEE Jr. Rep #: [id number] : 1955 69 From: Carlton Keyes MD Attending Dr: Dr. Stanley Craig MD Status: ADM IN Ordering Dr: Roselia Han PA Date: 03/20/25 Location: [facility] Sex: M C Admitted: 03/20/25 Test Reason [...] ECG Confirmed by STEPHY DENTON, CARLTON ([id number]), assignment desk editor ALIN AIKEN ([id number]) on 03/21/2025 8:20:23 AM Referred By: Confirmed By: CARLTON KEYES MD 03/21/25 0820 Date Carlton Keyes MD CC: Dr. Lee Mathews MD; Dr. Stanley Craig MD; FELICIA Murillo Signed Normal [facility] Basic Metabolic Profile (BMP )on 03-20-2025 BUN/CRE 16.9 RATIO Normal 10-20 [facility] Comment on above: Performed By: #### L 100.0100, L500.2500 #### [facility] [address] [facility] [place], [address] Calcium [Mass/Vol] 8.1 mg/dL Normal 7.6-11.0 [facility] Comment on above: Performed By: #### L 100.0100, L500.2500 #### [facility] [address] [place], [address] Chloride [Moles/Vol] 93 mmol/L Low 98-108 [facility] Comment on above: Performed By: #### L 100.0100, L500.2500 #### [facility] [address] [place], [address] CO2 [Moles/Vol] 30.7 mmol/L Normal 21.0-32.0 [facility] Comment on above: Performed By: #### L 100.0100, L500.2500 #### [facility] [address] [place], [address] Creatinine [Mass/Vol] 1.50 mg/dL High 0.70-1.20 [facility] Comment on above: Performed By: #### L 100.0100, L500.2500 #### [facility] [address] [place], [address] ECRCL 58.08 ml/min Normal 50-250 [facility] Comment on above: Performed By: #### L 100.0100, L500.2500 #### [facility] [address] [place], [address] GAP 10 Normal 5-15 [facility] Comment on above: Performed By: #### L 100.0100, L500.2500 #### [facility] [address] [place], [address] GFR/1.73 sq M.predicted among non-blacks MDRD (S/P/Bld) [Vol rate/Area] 49 mL/min/{1.73_m2} Low >60 [facility] Comment on above: Result Comment: mL/m in/1.73m2 CKD-EPI Creatinine Equation (2020) Performed By: #### L 100.0100, L500.2500 #### [facility] [address] [place], [address] Glucose [Mass/Vol] 108 mg/dL High 70-99 [facility] Comment on above: Performed By: #### L 100.0100, L500.2500 #### [facility] [address] [place], [address] Potassium [Moles/Vol] 4.3 mmol/L Normal 3.3-5.1 [facility] Comment on above: Performed By: #### L 100.0100, L500.2500 #### [facility] [address] [place] [place], [address] Sodium [Moles/Vol] 133 mmol/L Normal 133-145 [facility] Comment on above: Performed By: #### L 100.0100, L500.2500 #### [facility] [address] [place], [address] Urea nitrogen [Mass/Vol] 25 mg/dL High 4-19 [facility] Comment on above: Performed By: #### L 100.0100, L500.2500 #### [facility] [address] [place], [address] Blood polychromasia detectio n by light microscopyOrdered By: Roselia Han on 03-20-2025 Polychromasia LM Ql (Bld) 1+ [facility] CBC W/Diff, Automatedon Anisocytosis Ql (Bld) 1+ Normal [facility] Comment on above: Performed By: #### L 100.0100, L500.2500 ####[facility] [address] [place], [address] PLT EST MOD DEC Normal [facility] Comment on above: Performed By: #### L 100.0100, L500.2500 ####[facility] [address] [place], [address] POLYCHROMASIA 1+ Normal [facility] Comment on above: Performed By: #### L 100.0100, L500.2500 ####[facility] [address] [place], [address] Chest PA and Lateralon 03-20 Chest PA and Lateral [facility] Imaging Services [address] [place] [address] Chest PA and Lateral MR#: [id number] Acct: [id number] Name: KELVIN LEE Jr. Rep #: [id number] : 1955 M 69 From: Jorge porter MD PCP: Dr. Lee Mathews MD Status: REG ER Study: Chest PA and Lateral Date of Exam: 03/20/25 Exam# [id number] Ordering Dr: Roselia Han PROCEDURE: CHEST PA [...] Findings suggestive of vascular congestion. Reading [facility] CC: Dr. Lee Mathews MD; FELICIA Murillo Recreational Programs Director: Signed Normal [facility] Emergency Department Summary on 03-20-2025 Emergency Department Summary [facility] Medical Records Department [address] [place] [address] Emergency Department Summary 03/20/25 MR#: [id number] Acct: [id number] Name: KELVIN LEE Jr. Rep #: [id number] : 1955 69 From: Dae Mckeon MD PCP: Dr. Lee Mathews MD Status:ADM IN Location: [place] [address] HPI History of Present Illness Chief Complaint: [...] fevers, chills, chest pain, or recent illness. [facility] Medical History (Updated 03/20/25 @ 20:38 by [...] Extremity Narrativ (more content not included)... Normal [facility] H AND P Exam - Hospitaliston 03-20-2025 H&P Exam - Hospitalist [facility] Medical Records Department [address] [place] [address] H P Exam - Hospitalist 03/20/251950 MR#: [id number] Acct: [id number] Name: KELVIN LEE JrSavtia Rep #: [id number] : 1955 69 From: Sophia Lowe MD PCP: Dr. Lee Mathews MD Status:ADM IN Location: [facility] [id number] HPI - General General Date of Admission: 03/20/25 Date of Service: 03/20/25 Chief Complaint: Dyspnea, orthopnea, weight gain, edema. HPI Narrative The patient is a 69 y/o M w/ PMHx: Morbid obesity, HTN, HLD, Anxiety and Depression, COPD, Tobacco use, HFrEF, PAF who presents to the [facility] ED on 03/20/2025 with history of approximately [...] drip given no marked change in rate. [facility] Medical History PAF (paroxysmal atrial fibrillation) CKD [...] 98.7 F (more content not included)... Normal [facility] L499.0042on 03-20-2025 Trop T High Sen 39 ng/L High <=22 [facility] Comment on above: Performed By: #### L 300.4310, L300.3900 #### [facility] Laboratory [address] [place], [address] L501.4021on 03-20-2025 Trop T High Sen 39 ng/L High <=22 [facility] Comment on above: Performed By: #### L 300.4310, L300.3900 #### [facility] Laboratory [address] [place], [address] Laboratory - Hematology and Cell countsOrdered By: Roselia Han on 03-20-2025 Anisocytosis Ql (Bld) 1+ [facility] Magnesiumon 03-20-2025 Magnesium [Mass/Vol] 2.0 mg/dL Normal 1.5-2.2 [facility] Comment on above: Order Comment: Comme nts: may add to ED labs Performed By: #### L 300.4310, L300.3900 #### [facility] Laboratory [address] [place], [address] Platelet estimateOrdered By: Roselia Han on 03-20-2025 Platelets LM Ql (Bld) MOD DEC ADEQ [facility] Anion gap in Serum or Plasma Ordered By: Lee Mathews on 03-18-2025 Anion gap [Moles/Vol] 11 mmol/L 5-15 [facility] BUN/creatinine ratioOrdered By: Lee Mathews on 03-18-2025 Urea nitrogen/Creatinine [Mass ratio] 17.4 mg/mg 10-20 [facility] Bilirubin, totalOrdered By: Lee Mathews on 03-18-2025 Bilirubin [Mass/Vol] 0.85 mg/dL 0.00-1.30 [facility] Carbon dioxide, total [Moles /volume] in Central venous bloodOrdered By: Lee Mathews on 03-18-2025 CO2 [Moles/Vol] 29.1 mmol/L 21.0-32.0 [facility] Chloride assayOrdered By: Gilberto Mathews on 03-18-2025 Chloride [Moles/Vol] 98 mmol/L 98-108 [facility] Comprehensive Metabolic Prof ilon 03-18-2025 Albumin [Mass/Vol] 3.6 g/dL Normal 3.4-4.8 [facility] Comment on above: Performed By: #### L 500.4050, L503.7505 ####[facility] [address] [place], [address] Albumin/Globulin [Mass ratio] 1.5 {ratio} Normal 0.9-2.4 [facility] Comment on above: Performed By: #### L 500.4050, L503.7505 ####[facility] [address] [place], [address] ALK PHOS 128 U/L Normal 40-129 [facility] Comment on above: Performed By: #### L 500.4050, L503.7505 ####[facility] [address] [place], [address] ALT [Catalytic activity/Vol] 45 U/L Normal <=46 [facility] Comment on above: Performed By: #### L 500.4050, L503.7505 ####[facility] [address] [place], [address] AST [Catalytic activity/Vol] 44 U/L High <=37 [facility] Comment on above: Performed By: #### L 500.4050, L503.7505 ####[facility] [address] [place], [address] Bilirubin [Mass/Vol] 0.85 mg/dL Normal 0.00-1.30 [facility] Comment on above: Performed By: #### L 500.4050, L503.7505 ####[facility] [address] [place], [address] BUN/CRE 17.4 RATIO Normal 10-20 [facility] Comment on above: Performed By: #### L 500.4050, L503.7505 ####[facility] [address] [place], [address] Calcium [Mass/Vol] 8.1 mg/dL Normal 7.6-11.0 [facility] Comment on above: Performed By: #### L 500.4050, L503.7505 ####[facility] [address] [place], [address] Chloride [Moles/Vol] 98 mmol/L Normal 98-108 [facility] Comment on above: Performed By: #### L 500.4050, L503.7505 ####[facility] [address] [place], [address] CO2 [Moles/Vol] 29.1 mmol/L Normal 21.0-32.0 [facility] Comment on above: Performed By: #### L 500.4050, L503.7505 ####[facility] [address] [place], [address] Creatinine [Mass/Vol] 1.21 mg/dL High 0.70-1.20 [facility] Comment on above: Performed By: #### L 500.4050, L503.7505 ####[facility] [address] [place], [address] GAP 11 Normal 5-15 [facility] Comment on above: Performed By: #### L 500.4050, L503.7505 ####[facility] [address] [place], [address] GFR/1.73 sq M.predicted among non-blacks MDRD (S/P/Bld) [Vol rate/Area] 64 mL/min/{1.73_m2} Normal >60 [facility] Comment on above: Result Comment: mL/m in/1.73m2 CKD-EPI Creatinine Equation (2020) Performed By: #### L 500.4050, L503.7505 ####[facility] [address] [place], [address] Globulin (S) [Mass/Vol] 2.4 g/dL Normal 2.2-4.2 [facility] Comment on above: Performed By: #### L 500.4050, L503.7505 ####[facility] [address] [place], [address] Glucose [Mass/Vol] 94 mg/dL Normal 70-99 [facility] Comment on above: Performed By: #### L 500.4050, L503.7505 ####[facility] [address] [place], [address] Potassium [Moles/Vol] 3.9 mmol/L Normal 3.3-5.1 [facility] Comment on above: Performed By: #### L 500.4050, L503.7505 ####[facility] [address] [place], [address] Sodium [Moles/Vol] 139 mmol/L Normal 133-145 [facility] Comment on above: Performed By: #### L 500.4050, L503.7505 ####[facility] [address] [place], [address] T PROT 6.0 g/dL Normal 5.9-8.4 [facility] Comment on above: Performed By: #### L 500.4050, L503.7505 ####[facility] [address] [place], [address] Urea nitrogen [Mass/Vol] 21 mg/dL High 4-19 [facility] Comment on above: Performed By: #### L 500.4050, L503.7505 ####[facility] [address] [place], [place], [address] Glomerular filtration rate ( GFR) estimation/1.73 sq m using serum, plasma, or whole bOrdered By: Lee Mathews on 03-18-2025 GFR/1.73 sq M.predicted among non-blacks MDRD (S/P/Bld) [Vol rate/Area] 64 mL/min/{1.73_m2} >60 [facility] Comment on above: mL/min/1.73m2 CKD-EP I Creatinine Equation (2020) L503.7505on 03-18-2025 Natriuretic peptide B (Bld) [Mass/Vol] 8957 pg/mL High <=900 [facility] Comment on above: Result Comment: Hear t Failure Unlikely: < 300 pg/mL Heart Failure Likely < 50 Years: > 450 pg/mL 50-75 Years: > 900 pg/mL >75 Years: > 1800 pg/mL Performed By: #### L 500.4050, L503.7505 ####[facility] [address] [facility] [place], [address] Laboratory - Chemistry and C hemistry - challengeOrdered By: Lee Mathews on 03-18-2025 AST [Catalytic activity/Vol] 44 U/L High <38 [facility] Natriuretic peptide.B prohor geraldine N-Terminal [Mass/volume] in Serum or PlasmaOrdered By: Lee Mathews on 03-18-2025 Natriuretic peptide.B prohormone N-Terminal [Mass/Vol] 8957 pg/mL High <900 [facility] Comment on above: Heart Failure Unlike ly: < 300 pg/mLHeart Failure Likely< 50 Years: > 450 pg/mL50-75 Years: > 900 pg/mL>75 Years: > 1800 pg/mL Potassium measurement (mass/ volume)Ordered By: Lee Mathews on 03-18-2025 Potassium (Unsp spec) [Mass/Vol] 3.9 mmol/L 3.3-5.1 [facility] Serum creatinine measurement (mass/volume)Ordered By: Lee Mathews on 03-18-2025 Creatinine [Mass/Vol] 1.21 mg/dL High 0.70-1.20 [facility] Serum globulin measurementOr dered By: Lee Mathews on 03-18-2025 Globulin (S) [Mass/Vol] 2.4 g/dL 2.2-4.2 [facility] Serum glucose measurement (m ass/volume)Ordered By: Lee Mathews on 03-18-2025 Glucose [Mass/Vol] 94 mg/dL 70-99 [facility] Serum or plasma alanine andre otransferase (ALT) measurementOrdered By: Lee Mathews on 03-18-2025 ALT [Catalytic activity/Vol] 45 U/L <47 [facility] Serum or plasma albumin jennifer urement (mass/volume)Ordered By: Lee Mathews on 03-18-2025 Albumin [Mass/Vol] 3.6 g/dL 3.4-4.8 [facility] Serum or plasma albumin/glob ulin mass ratioOrdered By: Lee Mathews on 03-18-2025 Albumin/Globulin [Mass ratio] 1.5 {ratio} 0.9-2.4 [facility] Serum or plasma alkaline elisabeth sphatase measurementOrdered By: Lee Mathews on 03-18-2025 ALP [Catalytic activity/Vol] 128 U/L 40-129 [facility] Serum or plasma calcium jennifer urement (mass/volume)Ordered By: Lee Mathews on 03-18-2025 Calcium [Mass/Vol] 8.1 mg/dL 7.6-11.0 [facility] Serum or plasma urea nitroge n measurement (mass/volume)Ordered By: Lee Mathews on 03-18-2025 Urea nitrogen [Mass/Vol] 21 mg/dL High 4-19 [facility] Sodium levelOrdered By: Asia Mathews on 03-18-2025 Sodium [Moles/Vol] 139 mmol/L 133-145 [facility] Total proteinOrdered By: Carrie Mathews on 03-18-2025 Protein [Mass/Vol] 6.0 g/dL 5.9-8.4 [facility] Absolute lymphocyte countOrd ered By: Lee Mathews on 03-03-2025 Lymphocytes Auto (Unsp spec) [#/Vol] 2.04 10*3/uL 0.83-4.51 [facility] Absolute neutrophil countOrd ered By: Lee Mathews on 03-03-2025 Neutrophils (Bld) [#/Vol] 5.3 10*3/uL 2.0-7.7 [facility] Anion gap in Serum or Plasma Ordered By: Lee Mathews on 03-03-2025 Anion gap [Moles/Vol] 11 mmol/L 5- [facility] Automated lymphocyte count a s percentage of total leukocytesOrdered By: Lee Mathews on 03-03-2025 Lymphocytes/100 WBC Auto (Unsp spec) 25.4 % - [facility] BUN/creatinine ratioOrdered By: [facility] Mathews on 03-03-2025 Urea nitrogen/Creatinine [Mass ratio] 15.7 mg/mg 10- [facility] Basophil percentageOrdered B y: Lee Mathews on 03-03-2025 Basophils/100 WBC (Bld) 0.5 % 0-1 [facility] Bilirubin, totalOrdered By: Lee Mathews on 03-03-2025 Bilirubin [Mass/Vol] 0.83 mg/dL 0.00-1.30 [facility] CBC W/Diff, Automatedon 02-18 Absolute Lymph 2.04 X10 3/uL Normal 0.83-4.51 [facility] Comment on above: Performed By: #### L 300.4310, L300.3900 #### [facility] Laboratory [address] [place], [address] Absolute Neut 5.3 X10 3/uL Normal 2.0-7.7 [facility] Comment on above: Performed By: #### L 300.4310, L300.3900 #### [facility] Laboratory [address] [place], [address] Basophils/100 WBC (Bld) 0.5 % Normal 0-1 [facility] Comment on above: Performed By: #### L 300.4310, L300.3900 #### [facility] Laboratory [address] [place], [address] Eosinophils/100 WBC (Bld) 0.2 % Normal 0-5 [facility] Comment on above: Performed By: #### L 300.4310, L300.3900 #### [facility] Laboratory [address] [place], [address] Erythrocyte distribution width (RBC) [Ratio] 14.5 % Normal 11.6-14.6 [facility] Comment on above: Performed By: #### L 300.4310, L300.3900 #### [facility] Laboratory [address] [place], [address] Hematocrit (Bld) [Volume fraction] 44.6 % Normal 40-54 [facility] Comment on above: Performed By: #### L 300.4310, L300.3900 #### [facility] Laboratory [address] [place], [address] Hemoglobin (Bld) [Mass/Vol] 15.1 g/dL Normal 13.0-16.5 [facility] Comment on above: Performed By: #### L 300.4310, L300.3900 #### [facility] Laboratory [address] [place], [address] IG% 0.400 Normal 0.0-0.9 [facility] Comment on above: Result Comment: IG% - Immature Granulocytes (promyelocytes, myelocytes and metamyelocytes) > 1% indicates that a LEFT SHIFT is Present. Performed By: #### L 300.4310, L300.3900 #### [facility] Laboratory [address] [place], [address] Lymphocytes/100 WBC (Bld) 25.4 % Normal 19-41 [facility] Comment on above: Performed By: #### L 300.4310, L300.3900 #### [facility] Laboratory [address] [place], [address] MCH (RBC) [Entitic mass] 31.6 pg Normal 27.0-32.0 [facility] Comment on above: Performed By: #### L 300.4310, L300.3900 #### [facility] Laboratory [address] [place], [address] MCHC (RBC) [Mass/Vol] 33.9 g/dL Normal 32-36 [facility] Comment on above: Performed By: #### L 300.4310, L300.3900 #### [facility] Laboratory [address] [place], [address] MCV (RBC) [Entitic vol] 93.3 fL Normal 80-94 [facility] Comment on above: Performed By: #### L 300.4310, L300.3900 #### [facility] [address] [place], [address] Monocytes/100 WBC (Bld) 8.0 % Normal 0-10 [facility] Comment on above: Performed By: #### L 300.4310, L300.3900 #### [facility] [address] [place], [address] Neutrophils/100 WBC (Bld) 65.5 % Normal 47-70 [facility] Comment on above: Performed By: #### L 300.4310, L300.3900 #### [facility] Laboratory [address] [place], [address] Nucleated RBC (Bld) [#/Vol] 0 10*3/uL Normal 0-5 [facility] Comment on above: Performed By: #### L 300.4310, L300.3900 #### [facility] Laboratory [address] [place], [address] Platelet mean volume (Bld) [Entitic vol] 10.0 fL Normal 6.2-12.0 [facility] Comment on above: Performed By: #### L 300.4310, L300.3900 #### [facility] Laboratory [address] [place], [address] Platelets (Bld) [#/Vol] 100 10*3/uL Low 150-450 [facility] Comment on above: Performed By: #### L 300.4310, L300.3900 #### [facility] Laboratory [address] [place], [address] RBC (Bld) [#/Vol] 4.78 10*6/uL Normal 4.6-6.2 [facility] Comment on above: Performed By: #### L 300.4310, L300.3900 #### [facility] Laboratory [address] [place], [address] RDW SD 49.9 fl High 35.1-43.9 [facility] Comment on above: Performed By: #### L 300.4310, L300.3900 #### [facility] Laboratory [address] [place], [address] WBC (Bld) [#/Vol] 8.0 10*3/uL Normal 4.4-11.0 [facility] Comment on above: Performed By: #### L 300.4310, L300.3900 #### [facility] Laboratory [address] [place], [address] Carbon dioxide, total [Moles /volume] in Central venous bloodOrdered By: Lee Mathews on 03-03-2025 CO2 [Moles/Vol] 28.6 mmol/L 21.0-32.0 [facility] Chest PA and Lateralon 03-03 Chest PA and Lateral [facility] Imaging Services [address] [place] [place] [address] Chest PA and Lateral MR#: [id number] Acct: [id number] Name: KELVIN LEE Jr. Rep #: [id number] : 1955 M 69 From: Russel banuelos MD PCP: Dr. Lee Mathews MD Status: REG CLI Study: Chest PA and Lateral Date of Exam: 03/03/25 Exam# [id number] Ordering Dr: Lee Mathews PROCEDURE: CHEST PA [...] of active or chronic tuberculosis. Reading Location: [place] [address] CC: Dr. Lee Mathews MD Recreational Programs Director: Signed Normal [facility] Chloride assayOrdered By: Gilberto Mathews on 03-03-2025 Chloride [Moles/Vol] 94 mmol/L Low 98-108 [facility] Comprehensive Metabolic Prof ilon 03-03-2025 Albumin [Mass/Vol] 3.8 g/dL Normal 3.4-4.8 [facility] Comment on above: Performed By: #### L 300.4310, L300.3900 #### [facility] Laboratory [address] [place], [address] Albumin/Globulin [Mass ratio] 1.6 {ratio} Normal 0.9-2.4 [facility] Comment on above: Performed By: #### L 300.4310, L300.3900 #### [facility] Laboratory [address] [place], [address] ALK PHOS 73 U/L Normal 40-129 [facility] Comment on above: Performed By: #### L 300.4310, L300.3900 #### [facility] Laboratory [address] [place], [address] ALT [Catalytic activity/Vol] 25 U/L Normal <=46 [facility] Comment on above: Performed By: #### L 300.4310, L300.3900 #### [facility] [address] [place], [address] AST [Catalytic activity/Vol] 31 U/L Normal <=37 [facility] Comment on above: Performed By: #### L 300.4310, L300.3900 #### [facility] Laboratory [address] [place], [address] Bilirubin [Mass/Vol] 0.83 mg/dL Normal 0.00-1.30 [facility] Comment on above: Performed By: #### L 300.4310, L300.3900 #### [facility] [address] [place], [address] BUN/CRE 15.7 RATIO Normal 10-20 [facility] Comment on above: Performed By: #### L 300.4310, L300.3900 #### [facility] [address] [place], [address] Calcium [Mass/Vol] 8.8 mg/dL Normal 7.6-11.0 [facility] Comment on above: Performed By: #### L 300.4310, L300.3900 #### [facility] [address] [place], [address] Chloride [Moles/Vol] 94 mmol/L Low 98-108 [facility] Comment on above: Performed By: #### L 300.4310, L300.3900 #### [facility] [address] [place], [address] CO2 [Moles/Vol] 28.6 mmol/L Normal 21.0-32.0 [facility] Comment on above: Performed By: #### L 300.4310, L300.3900 #### [facility] [address] [place], [address] Creatinine [Mass/Vol] 1.06 mg/dL Normal 0.70-1.20 [facility] Comment on above: Performed By: #### L 300.4310, L300.3900 #### [facility] [address] [place], [address] GAP 11 Normal 5-15 [facility] Comment on above: Performed By: #### L 300.4310, L300.3900 #### [facility] [address] [place], [address] GFR/1.73 sq M.predicted among non-blacks MDRD (S/P/Bld) [Vol rate/Area] 75 mL/min/{1.73_m2} Normal >60 [facility] Comment on above: Result Comment: mL/m in/1.73m2 CKD-EPI Creatinine Equation (2020) Performed By: #### L 300.4310, L300.3900 #### [facility] [address] [place], [address] Globulin (S) [Mass/Vol] 2.4 g/dL Normal 2.2-4.2 [facility] Comment on above: Performed By: #### L 300.4310, L300.3900 #### [facility] [address] [place], [address] Glucose [Mass/Vol] 98 mg/dL Normal 70-99 [facility] Comment on above: Performed By: #### L 300.4310, L300.3900 #### [facility] [address] [place], [address] Potassium [Moles/Vol] 4.0 mmol/L Normal 3.3-5.1 [facility] Comment on above: Performed By: #### L 300.4310, L300.3900 #### [facility] [address] [place], [address] Sodium [Moles/Vol] 134 mmol/L Normal 133-145 [facility] Comment on above: Performed By: #### L 300.4310, L300.3900 #### [facility] [address] [place], [address] T PROT 6.1 g/dL Normal 5.9-8.4 [facility] Comment on above: Performed By: #### L 300.4310, L300.3900 #### [facility] [address] [place], [address] Urea nitrogen [Mass/Vol] 17 mg/dL Normal 4-19 [facility] Comment on above: Performed By: #### L 300.4310, L300.3900 #### [facility] [address] [place], [address] Eosinophil percentageOrdered By: Lee Mathews on 03-03-2025 Eosinophils/100 WBC (Bld) 0.2 % 0-5 [facility] Erythrocyte distribution wid th (RBC) [Ratio]Ordered By: Lee Mathews on 03-03-2025 Erythrocyte distribution width (RBC) [Entitic vol] 49.9 fL High 35.1-43.9 [facility] Erythrocyte distribution wid th ratioOrdered By: Lee Mathews on 03-03-2025 Erythrocyte distribution width (RBC) [Ratio] 14.5 % 11.6-14.6 [facility] Erythrocyte distribution wid th standard deviationOrdered By: Lee Mathews on 03-03-2025 Erythrocyte distribution width (RBC) [Ratio] 49.9 fl High 35.1-43.9 [facility] GFR/1.73 sq M.predicted shantanu g non-blacks MDRD (S/P/Bld) [Vol rate/Area]Ordered By: Lee Mathews on 03-03-2025 Estimated GFR (MDRD) Non-Af Amer 75 >60 [facility] Comment on above: mL/min/1.73m2 CKD-EP I Creatinine Equation (2020) Glomerular filtration rate ( GFR) estimation/1.73 sq m using serum, plasma, or whole bOrdered By: Lee Mathews on 03-03-2025 GFR/1.73 sq M.predicted among non-blacks MDRD (S/P/Bld) [Vol rate/Area] 75 mL/min/{1.73_m2} >60 [facility] Comment on above: mL/min/1.73m2 CKD-EP I Creatinine Equation (2020) Hematocrit Auto (Bld) [Volum e fraction]Ordered By: Lee Mathews on 03-03-2025 Hematocrit (Bld) [Volume fraction] 44.6 % 40-54 [facility] Hemoglobin measurementOrdere d By: Lee Mathews on 03-03-2025 Hemoglobin (Bld) [Mass/Vol] 15.1 g/dL 13.0-16.5 [facility] Immature granulocytes/100 WB C Auto (Bld)Ordered By: Lee Mathews on 03-03-2025 Immature granulocytes/100 WBC (Bld) 0.400 % 0.0-0.9 [facility] Comment on above: IG% - Immature Granu locytes (promyelocytes, myelocytes and metamyelocytes) > 1% indicates that a LEFT SHIFT is Present. L503.7505on 03-03-2025 Natriuretic peptide B (Bld) [Mass/Vol] 7533 pg/mL High <=900 [facility] Comment on above: Result Comment: Hear t Failure Unlikely: < 300 pg/mL Heart Failure Likely < 50 Years: > 450 pg/mL 50-75 Years: > 900 pg/mL >75 Years: > 1800 pg/mL Performed By: #### L 300.4310, L300.3900 #### [facility] Laboratory [facility] [place], [address] Laboratory - Chemistry and C hemistry - challengeOrdered By: Lee Mathews on 03-03-2025 AST [Catalytic activity/Vol] 31 U/L <38 [facility] Lymphocytes Auto (Unsp spec) [#/Vol]Ordered By: Lee Mathews on 03-03-2025 Lymphocytes (Bld) [#/Vol] 2.04 10*3/uL 0.83-4.51 [facility] Lymphocytes/100 WBC Auto (Un sp spec)Ordered By: Lee Mathews on 03-03-2025 Lymphocytes/100 WBC (Bld) 25.4 % 19-41 [facility] MCV (mean corpuscular volume ) determinationOrdered By: Lee Mathews on 03-03-2025 MCV (RBC) [Entitic vol] 93.3 fL 80-94 [facility] Mean corpuscular hemoglobin (MCH) determinationOrdered By: Lee Mathews on 03-03-2025 MCH (RBC) [Entitic mass] 31.6 pg 27.0-32.0 [facility] Mean corpuscular hemoglobin concentration (MCHC) determinationOrdered By: Lee Mathews on 03-03-2025 MCHC (RBC) [Mass/Vol] 33.9 g/dL 32-36 [facility] Mean platelet volume determi nationOrdered By: Lee Mathews on 03-03-2025 Platelet mean volume (Bld) [Entitic vol] 10.0 fL 6.2-12.0 [facility] Monocyte percentageOrdered B y: Lee Mathews on 03-03-2025 Monocytes/100 WBC (Bld) 8.0 % 0-10 [facility] Natriuretic peptide.B prohor geraldine N-Terminal [Mass/Vol]Ordered By: Lee Mathews on 03-03-2025 Natriuretic peptide B (Bld) [Mass/Vol] 7533 pg/mL High <900 [facility] Comment on above: Heart Failure Unlike ly: < 300 pg/mLHeart Failure Likely< 50 Years: > 450 pg/mL50-75 Years: > 900 pg/mL>75 Years: > 1800 pg/mL Natriuretic peptide.B prohor geraldine N-Terminal [Mass/volume] in Serum or PlasmaOrdered By: Lee Mathews on 03-03-2025 Natriuretic peptide.B prohormone N-Terminal [Mass/Vol] 7533 pg/mL High <900 [facility] Comment on above: Heart Failure Unlike ly: < 300 pg/mLHeart Failure Likely< 50 Years: > 450 pg/mL50-75 Years: > 900 pg/mL>75 Years: > 1800 pg/mL Neutrophil percentageOrdered By: Lee Mathews on 03-03-2025 Neutrophils/100 WBC (Bld) 65.5 % 47-70 [facility] Nucleated red blood cell per centageOrdered By: Lee Mathews on 03-03-2025 Nucleated RBC/100 WBC (Bld) [Ratio] 0 % 0-5 [facility] Platelet countOrdered By: Gilberto Mathews on 03-03-2025 Platelets (Bld) [#/Vol] 100 10*3/uL Low 150-450 [facility] Potassium (Unsp spec) [Mass/ Vol]Ordered By: Lee Mathews on 03-03-2025 Potassium [Moles/Vol] 4.0 mmol/L 3.3-5.1 [facility] Potassium measurement (mass/ volume)Ordered By: Lee Mathews on 03-03-2025 Potassium (Unsp spec) [Mass/Vol] 4.0 mmol/L 3.3-5.1 [facility] RBC Auto (Bld) [#/Vol]Ordere d By: Lee Mathews on 03-03-2025 RBC (Bld) [#/Vol] 4.78 10*6/uL 4.6-6.2 [facility] Serum creatinine measurement (mass/volume)Ordered By: Lee Mathews on 03-03-2025 Creatinine [Mass/Vol] 1.06 mg/dL 0.70-1.20 [facility] Serum globulin measurementOr dered By: Lee Mathews on 03-03-2025 Globulin (S) [Mass/Vol] 2.4 g/dL 2.2-4.2 [facility] Serum glucose measurement (m ass/volume)Ordered By: Lee Mathews on 03-03-2025 Glucose [Mass/Vol] 98 mg/dL 70-99 [facility] Serum or plasma alanine andre otransferase (ALT) measurementOrdered By: Lee Mathews on 03-03-2025 ALT [Catalytic activity/Vol] 25 U/L <47 [facility] Serum or plasma albumin jennifer urement (mass/volume)Ordered By: Lee Mathews on 03-03-2025 Albumin [Mass/Vol] 3.8 g/dL 3.4-4.8 [facility] Serum or plasma albumin/glob ulin mass ratioOrdered By: Lee Mathews on 03-03-2025 Albumin/Globulin [Mass ratio] 1.6 {ratio} 0.9-2.4 [facility] Serum or plasma alkaline elisabeth sphatase measurementOrdered By: Lee Mathews on 03-03-2025 ALP [Catalytic activity/Vol] 73 U/L 40-129 [facility] Serum or plasma calcium jennifer urement (mass/volume)Ordered By: Lee Mathews on 03-03-2025 Calcium [Mass/Vol] 8.8 mg/dL 7.6-11.0 [facility] Serum or plasma urea nitroge n measurement (mass/volume)Ordered By: Lee Mathews on 03-03-2025 Urea nitrogen [Mass/Vol] 17 mg/dL 4-19 [facility] Sodium levelOrdered By: Asia Mathews on 03-03-2025 Sodium [Moles/Vol] 134 mmol/L 133-145 [facility] TSH DL <= 0.005 mIU/L QnOrde red By: Lee Mathews on 03-03-2025 Thyroid Stimulating Hormone (TSH) 2.040 uIU/mL 0.300-4.200 [facility] TSH Qn 2.040 uIU/mL 0.300-4.200 [facility] Thyroid Stim Hormone (TSH)on 03-03-2025 TSH 2.040 uIU/mL Normal 0.300-4.200 [facility] Comment on above: Performed By: #### L 300.7885, L300.3900 #### [facility] Laboratory [facility] [place], [address] Total proteinOrdered By: Carrie Mathews on 03-03-2025 Protein [Mass/Vol] 6.1 g/dL 5.9-8.4 [facility] White blood cell (WBC) count Ordered By: Lee Mathews on 03-03-2025 WBC (Bld) [#/Vol] 8.0 10*3/uL 4.4-11.0 [facility] Basophil percentageOrdered B y: Uzair Mathews on 02-05-2024 Chloride [Moles/Vol] 97 mmol/L 98-107 [facility] Cholesterol [Mass/Vol] 169 mg/dL <200 [facility] Comment on above: <200 mg/dL Desirable 200-240 mg/dL Borderline >240 mg/dL High Risk Glucose [Mass/Vol] 105 mg/dL 74-106 [facility] Comment on above: Fasting Glucose resu lt from 100 to 125 mg/dL suggests IMPAIRED HOMEOSTASIS per A.D.A. criteria. Potassium [Moles/Vol] 3.8 mmol/L 3.5-5.1 [facility] Sodium [Moles/Vol] 133 mmol/L 136-145 [facility] Triglyceride [Mass/Vol] 103 mg/dL <199 [facility] Comment on above: The drugs N-Acetylcy steine and Metamizole may falsely depress this assay.Serum Triglycerides Reference Interval Normal <150 mg/dL Borderline high 150 - 199 mg/dL High 200 - 499 mg/dL Very High > or = 500 mg/dL Laboratory - Chemistry and C hemistry - challengeOrdered By: Uzair Mathews on 02-05-2024 Cholesterol in HDL [Mass/Vol] 48 mg/dL >40 [facility] Comment on above: The drugs N-Acetylcy steine and Metamizole may falsely depress this assay. Reference Range HDL <40 mg/dL Low HDL Cholesterol HDL >or= 60 mg/dL High HDL Cholesterol Cholesterol in LDL [Mass/Vol] 100 mg/dL 0-130 [facility] CO2 [Moles/Vol] 32.0 mmol/L 21.0-32.0 [facility] Urea nitrogen/Creatinine [Mass ratio] 9.7 mg/mg 10-20 [facility] No Panel InformationOrdered By: Uzair Mathews on 02-05-2024 Estimated GFR (MDRD) Amer 119 mL/min >60 [facility] Comment on above: GFR Calc Estimated GFR (MDRD) Non-Af Amer 98 mL/min >60 [facility] Comment on above: Non- GFR Calc Prostate Specific Antigen Screen 0.72 ng/mL 0.00-4.00 [facility] Comment on above: This test was perfor med using the TPSA assay method for the[employer] chemistry system. Values obtained with differentassay methods cannot be used interchangably.When changing PSA assays in the course of monitoring apatient, additional sequential testing should be carriedout to confirm baseline values. VLDL Cholesterol 21 mg/dL 5-40 [facility] Serum or plasma calcium jennifer urement (mass/volume)Ordered By: Uzair Mathews on 02-05-2024 Calcium [Mass/Vol] 8.7 mg/dL 8.5-10.1 [facility] Serum or plasma creatinine m easurement (mass/volume)Ordered By: Uzair Mathews on 02-05-2024 Creatinine [Mass/Vol] 0.82 mg/dL 0.70-1.30 [facility] Comment on above: The validity of the calculated GFR & GFRAA in patients over 70 years has not been determined. Clinical correlation is essential. Serum or plasma urea nitroge n measurement (mass/volume)Ordered By: Uzair Mathews on 02-05-2024 Urea nitrogen [Mass/Vol] 8 mg/dL 7-18 [facility] Thin prep Papanicolaou smear with manual screeningOrdered By: Uzair Mathews on 02-05-2024 Thin prep Papanicolaou smear with manual screening 4 5-15 [facility] Vital Signs Date Time Vital Sign Value Performing Clinician Faci lity 07-18-2025 18:30-0400 Diastolic blood pressure 62 mm[Hg] Dr. Lee Mathews MD Work Phone: [facility] 07-18-2025 18:30-0400 Heart rate 58 /min Dr. Lee Mathews MD Work Phone: [facility] 07-18-2025 18:30-0400 Respiratory rate 14 /min Dr. Lee Mathews MD Work Phone: [facility] 07-18-2025 18:30-0400 SaO2% (BldA) [Mass fraction] 99 % Dr. Lee Mathews MD Work Phone: [facility] 07-18-2025 18:30-0400 Systolic blood pressure 85 mm[Hg] Dr. Lee Mathews MD Work Phone: 5(342)860-053368 [place] [address] 07-18-2025 18:17-0400 Inhaled oxygen flow rate 6 L/min Dr. Lee Mathews MD Work Phone: 0(081)759-543749 [place] [address] 07-18-2025 17:31-0400 Body temperature 97.2 [degF] Dr. Lee Mathews MD Work Phone: 8(988)937-654449 [place] [address] 07-18-2025 15:47-0400 Body height 172.[address] Lee Mathews MD Work Phone: 5(245)535-515949 [place] [address] 07-18-2025 15:47-0400 Body mass index (BMI) [Ratio] 34.2 kg/m2 Dr. Lee Mathews MD Work Phone: 4(165)370-052549 [place] [address] 07-18-2025 15:47-0400 Body weight 102.[address] Lee Mathews MD Work Phone: 2(622)422-540649 [place] [address] 07-04-2025 13:30-0400 Body height 172.[address] Lee Mathews MD Work Phone: 0(517)274-076249 [place] [address] 07-04-2025 13:30-0400 Body mass index (BMI) [Ratio] 34.3 kg/m2 Dr. Lee Mathews MD Work Phone: 4(962)919-379568 [place] [address] 07-04-2025 13:30-0400 Body weight 102.[address] Lee Mathews MD Work Phone: 6(768)681-253049 [place] [address] 07-04-2025 13:30-0400 Diastolic blood pressure 79 mm[Hg] Dr. Lee Mathews MD Work Phone: 9(140)820-431949 [place] [address] 07-04-2025 13:30-0400 Heart rate 66 /min Dr. Lee Mathews MD Work Phone: 4(436)145-871149 [place] [address] 07-04-2025 13:30-0400 Respiratory rate 18 /min Dr. Lee Mathews MD Work Phone: [facility] 07-04-2025 13:30-0400 SaO2% (BldA) [Mass fraction] 95 % Dr. Lee Mathews MD Work Phone: [facility] 07-04-2025 13:30-0400 Systolic blood pressure 119 mm[Hg] Dr. Lee Mathews MD Work Phone: 1(845)414-003249 [place] [address] 06-27-2025 08:44-0400 Body height 172.[address] Lee Mathews MD Work Phone: 7(003)142-585549 [place] [address] 06-27-2025 08:44-0400 Body weight 102.[address] Lee Mathews MD Work Phone: 2(617)296-039249 [place] [address] 05-28-2025 08:19-0400 Body height 172.[address] Lee Mathews MD Work Phone: 3(205)233-049849 [place] [address] 05-28-2025 08:19-0400 Body weight 103.[address] Lee Mathews MD Work Phone: 1(304)497-731449 [place] [address] 05-27-2025 13:59-0400 Body height 172.[address] Lee Mathews MD Work Phone: 7(719)474-892349 [place] [address] 05-27-2025 13:59-0400 Body mass index (BMI) [Ratio] 34.3 kg/m2 Dr. Lee Mathews MD Work Phone: 0(899)449-852268 [place] [address] 05-27-2025 13:59-0400 Body weight 102.[address] eLe Mathews MD Work Phone: 8(066)305-780549 [place] [address] 05-27-2025 13:59-0400 Diastolic blood pressure 68 mm[Hg] Dr. Lee Mathews MD Work Phone: 5(796)384-308568 [place] [address] 05-27-2025 13:59-0400 Heart rate 60 /min Dr. Lee Mathews MD Work Phone: 0(500)068-501368 [place] [address] 05-27-2025 13:59-0400 Respiratory rate 18 /min Dr. Lee Mathews MD Work Phone: [facility] 05-27-2025 13:59-0400 Systolic blood pressure 103 mm[Hg] Dr. Lee Mathews MD Work Phone: [facility] 05-05-2025 11:28-0400 Body height 172.[address] Lee Mathews MD Work Phone: 4(648)424-031868 [place] [address] 05-05-2025 11:28-0400 Body weight 115.[address] Lee Mathews MD Work Phone: 9(353)416-899768 [place] [address] 05-02-2025 08:23-0400 Body mass index (BMI) [Ratio] 38.7 kg/m2 Dr. Lee Mathews MD Work Phone: 4(996)092-353513 [address] 05-01-2025 13:50-0400 Body mass index (BMI) [Ratio] 34.2 kg/m2 Dr. Lee Mathews MD Work Phone: [facility] 05-01-2025 13:49-0400 Body weight 102.[address] Lee Mathews MD Work Phone: [facility] 05-01-2025 13:04-0400 Diastolic blood pressure 83 mm[Hg] Dr. Lee Mathews MD Work Phone: [facility] 05-01-2025 13:04-0400 Heart rate 95 /min Dr. Lee Mathews MD Work Phone: [facility] 05-01-2025 13:04-0400 SaO2% (BldA) [Mass fraction] 98 % Dr. Lee Mathews MD Work Phone: [facility] 05-01-2025 13:04-0400 Systolic blood pressure 122 mm[Hg] Dr. Lee Mathews MD Work Phone: [facility] 04-03-2025 08:24-0400 Body mass index (BMI) [Ratio] 38.7 kg/m2 Dr. Lee Mathews MD Work Phone: [facility] 04-03-2025 08:24-0400 Body weight 115.[address] Lee Mathews MD Work Phone: 2(239)386-051149 [place] [address] 04-03-2025 08:24-0400 Diastolic blood pressure 83 mm[Hg] Dr. Lee Mathews MD Work Phone: 9(089)754-014249 [place] [address] 04-03-2025 08:24-0400 Heart rate 95 /min Dr. Lee Mathews MD Work Phone: 2(028)083-985049 [place] [address] 04-03-2025 08:24-0400 Respiratory rate 18 /min Dr. Lee Mathews MD Work Phone: 6(479)502-217449 [place] [address] 04-03-2025 08:24-0400 SaO2% (BldA) [Mass fraction] 98 % Dr. Lee Mathews MD Work Phone: 6(472)292-202149 [place] [address] 04-03-2025 08:24-0400 Systolic blood pressure 122 mm[Hg] Dr. Lee Mathews MD Work Phone: 0(478)040-335249 [place] [address] 03-27-2025 14:21-0400 Body temperature 97.5 [degF] Dr. Lee Mathews MD Work Phone: 1(354)831-666549 [place] [address] 03-27-2025 14:21-0400 Diastolic blood pressure 92 mm[Hg] Dr. Lee Mathews MD Work Phone: 5(567)211-304349 [place] [address] 03-27-2025 14:21-0400 Heart rate 101 /min Dr. Lee Mathews MD Work Phone: 1(269)501-494549 [place] [address] 03-27-2025 14:21-0400 Respiratory rate 18 /min Dr. Lee Mathews MD Work Phone: 2(853)569-200849 [place] [address] 03-27-2025 14:21-0400 SaO2% (BldA) [Mass fraction] 92 % Dr. Lee Mathews MD Work Phone: 1(153)959-470168 [place] [address] 03-27-2025 14:21-0400 Systolic blood pressure 110 mm[Hg] Dr. Lee Mathews MD Work Phone: [facility] 03-27-2025 12:49-0400 Body temperature 97.5 [degF] Dr. Lee Mathews MD Work Phone: [facility] 03-27-2025 12:49-0400 Diastolic blood pressure 92 mm[Hg] Dr. Lee Mathews MD Work Phone: [facility] 03-27-2025 12:49-0400 Heart rate 101 /min Dr. Lee Mathews MD Work Phone: [facility] 03-27-2025 12:49-0400 Respiratory rate 18 /min Dr. Lee Mathews MD Work Phone: [facility] 03-27-2025 12:49-0400 SaO2% (BldA) [Mass fraction] 92 % Dr. Lee Mathews MD Work Phone: [facility] 03-27-2025 12:49-0400 Systolic blood pressure 110 mm[Hg] Dr. Lee Mathews MD Work Phone: [facility] 03-26-2025 09:57-0400 Body mass index (BMI) [Ratio] 37.1 kg/m2 Dr. Lee Mathews MD Work Phone: [facility] 03-26-2025 09:57-0400 Body weight 110.[address] Lee Mathews MD Work Phone: [facility] 03-24-2025 13:15-0400 Body height 172.[address] Lee Mathews MD Work Phone: [facility] Encounters Encounter Date Encounter Type Care Provider Facility Start: 07-18-2025 End: 07-18-2025 Emergency department patient visit Isaias Rocha Facility:[facility] Start: 07-18-2025 carlee Keyes Facility:[facility] Start: 07-18-[address] Carlton Keeys MD -Cardiac Rehab Work Phone: Start: 07-09-[address] Carlton Keyes MD -Cardiac Rehab Work Phone: Start: 07-04-2025 End: 07-04-2025 Patient encounter procedure Ariane Perez DATA REPORTING ANALYST-C -[facility] Work Phone: Start: 07-04-2025 End: 07-04-[address] Lee Mathews MD Work Phone: -[facility] Start: 07-03-2025 Non-patient / Non-visit Ariane Perez DATA REPORTING ANALYST-C -[facility] Work Phone: Start: 07-03-2025 ambulatory Ariane Perez DATA REPORTING ANALYST Facili ty:[facility] Start: 07-02-[address] Carlton Keyes MD -Cardiac Rehab Work Phone: Start: 07-02-2025 Non-patient / Non-visit Dr. Carlton Keyes MD -[facility] Start: 07-02-2025 End: 07-02-[address] Lee Mathews MD Work Phone: -Cardiovascular Services Start: 07-02-2025 End: 07-02-2025 Patient encounter procedure Ariane Perez DATA REPORTING ANALYST-C -Cardiovascular Services Work Phone: Start: 07-02-2025 End: 07-02-2025 ambulatory Ariane Perez NP Facility:[facility] Start: 06-30-[address] Carlton Keyes MD -Cardiac Rehab Work Phone: Start: 06-23-2025 Non-patient / Non-visit Dr. Carlton Keyes MD -[facility] Work Phone: Start: 06-23-2025 End: 06-23-[address] Lee Mathews MD Work Phone: -Pulmonary Services/Neurology Start: 06-23-2025 End: 06-23-2025 Patient encounter procedure Shanti DUARTE -Pulmonary Services/Neurology Work Phone: Start: 06-23-2025 End: 06-23-2025 ambulatory Shanti DUARTE Facility:[facility] Start: 06-18-2025 End: 06-19-[address] eLe Mathews MD Work Phone: -Cardiac Rehab Start: 06-18-2025 End: 06-19-[address] Carlton Keyes MD -Cardiac Rehab Work Phone: Start: 05-27-2025 End: 05-27-[address] Lee Mathews MD Work Phone: -[facility] Start: 05-27-2025 End: 05-27-2025 Patient encounter procedure Mihai DUARTE -[facility] Work Phone: Start: 05-26-[address] Carlton Keyes MD -Cardiac Rehab Work Phone: Start: 05-19-2025 End: 05-19-[address] Lee Mathews MD Work Phone: -Cardiac Rehab Start: 05-19-2025 End: 05-19-[address] Carlton Keyes MD -Cardiac Rehab Work Phone: Start: 05-12-2025 End: 05-12-[address] Carlton Keyes MD -[facility] Work Phone: Start: 05-12-2025 End: 05-12-[address] Lee Mathews MD Work Phone: [facility] Work Phone: Start: 05-09-[address] Carlton Keyes MD -Cardiac Rehab Work Phone: Start: 05-05-2025 ambulatory Carlton Keyes Facility:[facility] Start: 05-05-2025 Non-patient / Non-visit Dr. Nigel Read DO -[facility] Start: 05-05-2025 End: 05-05-2025 Admission to same day surgery center Dr. Carlton Keyes MD -[employer]/Special Procedures Work Phone: Start: 05-05-2025 End: 05-05-[address] Lee Mathews MD Work Phone: [facility] Work Phone: Start: 05-01-2025 Non-patient / Non-visit Dr. Carlton Keyes MD -[facility] Start: 05-01-2025 End: 05-01-[address] Lee Mathews MD Work Phone: [facility] Work Phone: Start: 05-01-2025 End: 05-01-[address] Carlton Keyes MD -Cardiac Rehab Work Phone: Start: 05-01-2025 End: 05-01-2025 ambulatory Carlton Keyes Facility:[facility] Start: 04-03-2025 End: 04-03-[address] Lee Mathews MD Work Phone: [facility] Work Phone: Start: 04-03-2025 End: 04-03-2025 Patient encounter procedure Ariane Perez DATA REPORTING ANALYST-C -Laboratory Work Phone: Start: 04-03-2025 End: 04-03-2025 Patient encounter procedure Ariane Perez DATA REPORTING ANALYST-C -[facility] Work Phone: Start: 04-03-2025 End: 04-03-[address] Lee Mathews MD Work Phone: [facility] Work Phone: Start: 04-03-2025 End: 04-03-2025 ambulatory Ariane Perez NP Facility:[facility] Start: 03-27-2025 Non-patient / Non-visit Dr. Derrick Chacon MD -[facility] Work Phone: Start: 03-27-2025 Non-patient / Non-visit Dr. Madhu Bautista MD -[facility] Start: 03-26-2025 Non-patient / Non-visit Dr. Derrick Chacon MD -[facility] Work Phone: Start: 03-26-2025 Non-patient / Non-visit [facility]. Madhu Bautista MD [facility] Start: 03-25-2025 Non-patient / Non-visit Dr. Derrick Chacon MD -[facility] Work Phone: Start: 03-25-2025 ambulatory Lee Quan lit:[facility] Start: 03-25-2025 Non-patient / Non-visit Dr. Madhu Bautista MD [facility] Start: 03-24-2025 Non-patient / Non-visit Dr. Derrick Chacon MD [facility] Work Phone: Start: 03-24-2025 Non-patient / Non-visit Dr. Carlton Keyes MD [facility] Start: 03-24-2025 ambulatory Carlton Keyes Facility:[facility] Start: 03-23-2025 Non-patient / Non-visit Dr. Krissy Freitas MD [facility] Start: 03-23-2025 Non-patient / Non-visit Dr. Stanley Craig MD [facility] Work Phone: Start: 03-22-2025 Non-patient / Non-visit Dr. Krissy Freitas MD [facility] Start: 03-22-2025 Non-patient / Non-visit Dr. Stanley Craig MD [facility] Work Phone: Start: 03-21-2025 Non-patient / Non-visit Dr. Stanley Craig MD [facility] Work Phone: Start: 03-21-2025 ambulatory Lee Quan lity:[facility] Start: 03-21-2025 Non-patient / Non-visit Dr. Krissy Freitas MD [facility] Start: 03-20-2025 Non-patient / Non-visit Dr. Sophia Lowe MD -[facility] Work Phone: Start: 03-20-2025 ambulatory Lee Mathews Faci lity:[facility] Start: 03-20-2025 End: 03-27-2025 Evaluation and management of inpatient Dr. Derrick Chacon MD -Progressive Care Unit Work Phone: Start: 03-18-2025 End: 03-18-[address] [facility] Start: 03-18-2025 End: 03-18-2025 ambulatory Lee Mathews Facility:[facility] Start: 03-03-2025 End: 03-03-[address] Lee Mathews MD Work Phone: [facility] Work Phone: Start: 03-03-2025 End: 03-03-[address] [facility] Start: 03-03-2025 End: 03-03-2025 ambulatory Lee Mathews Facility:[facility] Start: 02-05-2024 End: 02-05-2024 ambulatory [facility] Work Phone: Start: 02-05-2024 End: 02-05-2024 Patient encounter procedure [facility] Procedures Date Procedure Procedure Detail Performing [...] Activity Detail Author Start: 07-18-2025 Electrocardiographic procedure [facility] Start: 07-18-2025 End: 07-18-2025 [facility] Start: 07-18-2025 End: 07-18-2025 [facility] Start: 05-27-2025 Evaluation of diagnostic study results [facility] Start: 05-12-2025 Evaluation of diagnostic study results [facility] Start: 05-05-2025 Patient discharge [facility] Start: 04-03-2025 Evaluation of diagnostic study results 12 Lead EKG performed by [facility] [facility] Start: 03-27-2025 Patient discharge [facility] Start: 03-24-2025 Patient referral [facility] Work Phone: Start: 03-24-2025 Notification of physician [facility] Start: 03-24-2025 Patient education [facility] Start: 03-24-2025 Provision of activity privileges [facility] Start: 03-24-2025 Pulse taking [facility] Start: 03-24-2025 Taking patient vital signs [facility] Start: 03-24-2025 Wound care [facility] Start: 03-24-2025 [facility] Start: 03-24-2025 Catheterization of vein [facility] Start: 03-24-2025 Medication not administered [facility] Start: 03-24-2025 [facility] Start: 03-23-2025 [facility] Start: 03-22-2025 [facility] Start: 03-21-2025 Care planning and problem solving actions [facility] Start: 03-21-2025 Referral to boring machine feeder [facility] Start: 03-21-2025 Care planning and problem solving actions [facility] Start: 03-21-2025 [facility] Start: 03-20-2025 End: 03-21-2025 [facility] Start: 03-20-2025 Following clinical pathway protocol [facility] Start: 03-20-2025 Assessment of risk of venous thromboembolism [facility] Start: 03-20-2025 Insertion of catheter into peripheral vein [facility] Start: 03-20-2025 Measuring intake and output [facility] Start: 03-20-2025 Patient referral to dietitian [facility] Start: 03-20-2025 Providing care according to standard [facility] Start: 03-20-2025 Provision of activity privileges [facility] Start: 03-20-2025 Tobacco use cessation education [facility] Start: 03-20-2025 Introduction of urinary catheter [facility] Start: 03-20-2025 Referral to service [facility] Start: 03-20-2025 Application of elastic bandage [facility] Start: 03-20-2025 Elevation of affected extremity [facility] Start: 03-20-2025 Notification of physician [facility] Start: 03-20-2025 Patient education [facility] Start: 03-20-2025 Admission procedure [facility] Start: 03-20-2025 [facility] Start: 03-20-2025 [facility] Basic metabolic 2007 panel with ionized calcium - Serum or Plasma [facility] Basic metabolic 2007 panel with ionized calcium - Serum or Plasma [facility] Cardioversion [facility] CBC W Auto Different ial panel - Blood [facility] Natriuretic peptide. B prohormone N-Terminal [Mass/volume] in Serum or Plasma [facility] Patient Education ED AFIB [facility] Work Phone: Patient referral [facility] Work Phone: Polysomnography [facility] Troponin T.cardiac [Mass/volume] in Serum or Plasma by High sensitivity method [facility] Payers Date Payer Category Payer Medicare [id number] 2025 Self-pay [id number] Medicare [id number] Private Health Insurance [employer] [id number] Unknown [id number] Unknown [id number] 2.16.840.1.333792.3.579.2.462 Unknown [id number] 2.16.840.1.241129.3.579.2.462 Unknown [id number] 2.16.840.1.159977.3.579.2.462 Unknown [id number] 2.16.840.1.645784.3.579.2.462 Unknown [id number] 2.16.840.1.145568.3.579.2.462 Unknown [id number] 2.16.840.1.325817.3.579.2.462 Unknown [id number] 2.16.840.1.865331.3.579.2.462 Unknown [id number] 2.16.840.1.954144.3.579.2.462 Unknown [id number] 2.16.840.1.042839.3.579.2.462 Unknown [id number] 2.16.840.1.035607.3.579.2.462 Unknown [id number] 2.16.840.1.267848.3.579.2.462 Unknown [id number] 2.16.840.1.657820.3.579.2.462 Unknown [id number] 2.16.840.1.846161.3.579.2.462 Unknown [id number] 2.16.840.1.583383.3.579.2.462 Unknown [id number] 2.16.840.1.975396.3.579.2.462 Unknown [id number] 2.16.840.1.176716.3.579.2.462 Unknown [id number] 2.16.840.1.586915.3.579.2.462 Unknown [id number] 2.16.840.1.180833.3.579.2.462 Unknown [id number] 2.16.840.1.377246.3.579.2.462 Unknown [id number] 2.16840.1.512167.3.579.2.462 Unknown [id number] 2.840.1.067001.3.579.2.462 Unknown [id number] 2.840.1.842076.3.579.2.462 Unknown [id number] 2.840.1.400410.3.579.2.462 Unknown [id number] 2.16840.1.855487.3.579.2.462 Unknown [id number] 2.840.1.715596.3.579.2.462 Unknown [id number] 2.16840.1.298647.3.579.2.462 Unknown [id number] 2.840.1.761439.3.579.2.462 Unknown [id number] 2.16.840.1.970804.3.579.2.462 Unknown [id number] 2.16.840.1.249981.3.579.2.462 Unknown [id number] 2.16.840.1.183532.3.579.2.462 Unknown [id number] 2.16.840.1.927005.3.579.2.462 Unknown [id number] 2.840.1.937070.3.579.2.462 Unknown [id number] 2.840.1.754109.3.579.2.462 Unknown [id number] 2.840.1.202968.3.579.2.462 Unknown [id number] 2.840.1.982509.3.579.2.462 Unknown [id number] 2.0.1.243776.3.579.2.462 Unknown [id number] 2.840.1.912064.3.579.2.462 Unknown [id number] 2.0.1.718884.3.579.2.462 Social History Date Type Detail Facility Start: 11-13-2021 Tobacco smoking stat [facility] Unknown if ever smoked [facility] Start: 11-13-2021 None [facility] Start: 06-29-2018 Cigarettes [facility] Start: 1955 Sex Assigned At Male W [facility] Start: 11-13-2021 End: 03-20-2025 Tobacco smoking status WIIS Current some day smoker [facility] Start: 03-06-2025 Sex Male (finding) [facility] Start: 05-05-2025 End: 07-18-2025 Tobacco smoking status WIIS Smokes tobacco daily (finding) [facility] Medical Equipment Procedure Code Equipment Code Equipment [...] Functional status Ambulates;Up a d amira;Bathroom Privilege [facility] Work Phone: Mental Status Date Assessment Result Facility 07-18-2025 Cognitive function Awake;Appropr iate;Follows Commands;Drowsy [facility] Work Phone: 03-27-2025 Cognitive function Voice/Name [facility] Work Phone: Clinical Notes 03-04-2025 to 07-18-2025 Note Date & Type Note Facility 07-18-2025 Discharge summary [facility] 07-18-2025 Radiology Diagnostic study note [facility] Imaging Services [address], [place] [address] Chest 1 View (Portable) MR#: [id number] Acct: [id number] Name: KELVIN LEE Jr. Rep #: [id number] : 1955 M 70 From: Dennis De La Torre MD PCP: Dr. Lee Mathews MD Status: [facility] ER Study:Chest 1 View (Portable) Date of Exam: 07/18/25 Exam# [id number] Ordering Dr: Tammy Rocha MD PROCEDURE: CHEST 1 VIEW (PORTABLE) 07/18/2025 REASON FOR EXAM: CHEST PAIN TECHNIQUE: Frontal view of the chest. COMPARISON: 03/20/2025 FINDINGS: Lungs/Pleura: Clear. No pneumothorax or sizable pleural effusion. Heart/Mediastinum: Cardiomegaly. Tortuous thoracic aorta. Bones/Soft tissues: No significant abnormality. RAD/Chest 1 View (Portable) IMPRESSION: Cardiomegaly. No acute pulmonary disease. Reading Location: [facility] CC: Dr. Lee Mathews MD; Dr. Isaias Rocha MD ~ Recreational Programs Director: Signed [facility] 07-18-2025 Discharge summary Note Date/Time July 18, 2025 6:57pm [facility] Medical Records Department [address] [place] [address] Emergency Department Summary 07/18/25 MR#: [id number] Acct: [id number] Name: KELVIN LEE Jr. Rep #:[id number] : 1955 70 From: Isaias Rocha MD [...] TAD Risk Factors: Negative for Marfan's Syndrome [facility] Medical History Cardiac LV ejection fraction 10-20% [...] the 80s he remains Justo-fib with PVCs. Mechanical Technologist wanted us to cardiovert him. We are [...] % (Auto) 50.9 Lymph % (Auto) 38.1 [place] % (Auto) 9.6 Eos % (Auto) 1.0 [...] Cardiomegaly. No acute pulmonary disease. Reading Location: [facility] Chest x-ray, single view, portable, interpreted [...] 120 no PVCs. No acute signs of [place] or ischemia. Procedures Procedural Sedation Procedural sedation [...] 30-74 minutes, Including time spent:,Discussing w/Patient &/or Family/Blood Bank Laboratory Professional, Discussing w/Consultants, Performing Direct Patient Care at [...] 3RF Primary Care Provider: Lee Mathews Referrals: eLe Mathews MD [Primary Care Provider] - As Needed Activity Restrictions/Additional Instructions: Continue your current medications. No driving for the next 36 hours. Be very careful on steps. Have assistance. Due to the anesthesia we gave you today. 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 Return if feeling worse. Print Language: Bengali Disposition Disposition: Home, Self Care What to do if you have Problems For any increased pain, shortness of breath, bleeding, nausea or vomiting, chestpain, or any unexpected problems, contact your Primary Care Provider. Call [facility] ([phone]) or report to the closest Emergency Room. Call 911 if necessary. 07/18/25 1856 <Electronically signed by Isaias Rocha MD> Cosigner Signature (if applicable): CC: Dr. Lee Mathews MD ~ Signed ADDENDUM by Dr. Isaias Rocha MD on 07/18/25 at 1857 Post cardioversion his EKG shows a sinus rhythm rate of 60 with occasional PVCs. No W[place] or ischemia. Currently not in A-fib. 07/18/257<Electronically signed by Isaias Rocha MD> Cosigner Signature (if applicable): cc: Dr. Lee Mathews MD ~* Signed [facility] Work Phone: 1(662) 341-676206-16-2025 Procedure note [facility] Medical Records Department [address] [place] [address] Procedure Report 05/05/25 1259 MR#: [id number] Acct: [id number] Name: KELVIN LEE Jr. Rep #:[id number] : 1955 69 From: Nigel Read DO PCP: Dr. Lee Mathews MD Status :REG [facility] Location: [facility] Procedures Pulmonary Pulmonary Procedures /Diagnostic Testin Con Sedation Non-invasive Procedural Procedure Information Date of Procedure: 05/05/25 Description of procedure: CONSCIOUS SEDATION REPORT DATE OF SERVICE: May 05, 2025 BRIEF HISTORY OF PRESENT ILLNESS: The patient is a 69-year-old male who presented to [facility] an electiveoutpatient cardioversion due to underlying atrial [...] Keyes MD; Dr. Nigel Read DO~ Signed [facility]06-16-2025 Procedure note [facility] Medical Records Department [address] [place] [address] Procedure Report 05/05/25 1250 MR#: [id number] Acct: [id number] Name: KELVIN LEE Jr. Rep #:[id number] : 1955 69 From: Carlton Keyes MD PCP: Dr. Lee Mathews MD Status :[facility] Location: [facility] Non-invasive Procedural Procedure Information Date of [...] Mathews MD; Dr. Carlton Keyes MD~ Signed [facility]06-15-2025 History and physical note Author Carlton Keyes [facility] Note Date/Time May 04, 2025 6:36 pm [facility] Medical Records Department [address] [place] [address] History & Physical Exam 05/01/25 1259 MR#: [id number] Acct: [id number] Name: KELVIN LEE Jr. Rep #:[id number] : 1955 69 From: Carlton Keyes MD PCP: Dr. Lee Mathews MD Status :PRE [facility] Location: [facility] History and Physical Date of Admission: [...] EMR Allergies See EMR Medications See EMR [facility] Medical History PAF (paroxysmal atrial fibrillation) CKD [...] Mathews MD; Dr. Carlton Keyes MD~ Signed [facility] Work Phone: 1(157) 850-106906-15-2025 History and physical note [facility] Medical Records Department [address] [place] [address] History & Physical Exam 05/01/25 1259 MR#: [id number] Acct: [id number] Name: KELVIN LEE Jr. Rep #:[id number] : 1955 69 From: Carlton Keyes MD PCP: Dr. Lee Mathews MD Status :PRE [facility] Location: [facility] History and Physical Date of Admission: [...] Mathews MD; Dr. Carlton Keyes MD~ Signed [facility]06-12-2025 [facility] Medical Records Department [address] [place] [address] History Physical Exam 05/01/25 1259 MR#: [id number] Acct: [id number] Name: MARY,KELVIN Rep #: [id number] : 1955 69 From: Carlton Keyes MD PCP: Dr. Lee Mathews MD Status:PRE [facility] Location: [facility] History and Physical Date of Admission: [...] EMR Allergies See EMR Medications See EMR [facility] Medical History PAF (paroxysmal atrial fibrillation) CKD [...] arteries Cardiomyopathy: Dilated R (more content not included)...[facility]05-08-2025 Discharge summary Author Derrick Chacon [facility] Note Date/Time March 27, 2025 12:45p nilsa [facility] Medical Records Department [address] [place] [address] Discharge Summary 03/27/25 1113 MR#: [id number] Acct: [id number] Name: KELVIN LEE Jr. Rep #:[id number] : 1955 69 From: Derrick MCCLENDON: Dr. Lee Mathews MD Status :ADM IN Location: [facility] DPT183- 1 Providers Date of Admission: 03/20/25 Date [...] reported normal coronaries. Dilated cardiomyopathy. Seen by boring machine feeder recommend continue IV furosemide. Spironolactone added. SGLT2 [...] Self Care Charges/Coding Visit Charges Inpatient E&M: 89700 Disch Hosp >30min 03/27/25 1245 <Electronically signed by Derrick Chacon MD> Cosigner Signature (if applicable): CC: Dr. Lee Mathews MD; Dr. Derrick Chacon MD~ Signed [facility] Work Phone: 1(195) 317-953005-08-2025 Discharge summary [facility] Medical Records Department [address] [place] [address] Discharge Summary 03/27/25 1113 MR#: [id number] Acct: [id number] Name: KELVIN LEE Jr. Rep #:[id number] : 1955 69 From: Derrick Henry PCP: Dr. Lee Mathews MD Status :[facility] Prov[facility] Date of Admission: 03/20/25 [...] Self Care Charges/Coding Visit Charges Inpatient E&M: 06185 Disch Hosp >30min 03/27/25 1245 Cosigner Signature (if applicable): CC: Dr. Lee Mathews MD; Dr. Derrick Chacon MD~ Signed [facility]05-08-2025 Discharge summary [facility] Medical Records Department [address] [place] [address] Instructions for Home/Discharge Instructions 03/27/25 1012 MR#: [id number] Acct: [id number] Name: KELVIN LEE Jr. Rep #:[id number] : 1955 69 From: Derrick Henry PCP: [...] MD; Dr. Krissy Freitas MD ~ Signed [facility]05-08-2025 Discharge summary Author Derrick Chacon [facility] Note Date/Time March 27, 2025 12:41p [facility] Medical Records Department [address] [place] [address] Instructions for Home/Discharge Instructions 03/27/25 1012 MR#: [id number] Acct: [id number] Name: KELVIN LEE JrSavita Rep #:[id number] : 1955 69 From: Derrick Henry PCP: [...] Primary Care Provider: Lee Mathews Consulting Providers: Sophai Lowe; Krissy Freitas; Stanley Craig Discharge Orders/Prescriptions [...] MD; Dr. Krissy Freitas MD ~ Signed [facility] Work Phone: 1(102) 584-937805-08-2025 Progress note Author Madhu Bautista [facility] Note Date/Time March 27, 2025 9:34am [facility] Medical Records Department [address] [place] [address] Progress Note - Cardiology 03/27/2559 MR#: [id number] Acct: [id number] Name: KELVIN LEE JrSavita Rep #:[id number] : 1955 69 From: Madhu Bautista MD PCP: Dr. Lee Mathews MD Status :ADM IN Location: [place] [address] Subjective Subjective Patient resting comfortably seated in [...] hr 03/26/25 05:41: [place] [address] H 03/27/25 05:23: Sodium 141, Potassium 3.9, [...] daily. The patient will follow-up in the [facility] office with a basic metabolic panel [...] 3. Patient to be evaluated in the [facility] office in 1 week by her advanced practitioner. Charges/Coding Visit Charges Inpatient E&M: 07960 Subs Hosp L3 03/27/25 0934 <Electronically signed by Madhu Bautista MD> Joseluisigner Signature (if applicable): CC: ~ Signed [facility] Work Phone: 1(873) 907-239105-08-2025 [facility] Medical Records Department [address] [place] [address] Discharge Summary 03/27/25 1113 MR#: [id number] Acct: [id number] Name: KELVIN LEE Jr. Rep #: [id number] : 1955 69 From: Derrick Chacon MD PCP: Dr. Lee Mathews MD Status:ADM IN Location: [facility] ORT528-4 Providers Date of Admission: 03/20/25 Date of [...] reported normal coronaries. Dilated cardiomyopathy. Seen by boring machine feeder recommend continue IV furosemide. Spironolactone added. SGLT2 [...] Suspected to be sec (more content not included)...[facility] 03-27-2025 Progress note [facility] Medical Records Department [address] [place] [address] Progress Note - Cardiology 03/27/25 0859 MR#: [id number] Acct: [id number] Name: KELVIN LEE Rep #:[id number] : 1955 69 From: Madhu Bautista MD PCP: Dr. Lee Mathews MD Status :[facility] Subjective Subjective Patient resting comfortably [...] hr 03/26/25 05:41: [place] [address] H 03/27/25 05:23: Sodium 141, Potassium 3.9, [...] daily. The patient will follow-up in the [facility] office with a basic metabolic panel [...] 3. Patient to be evaluated in the [facility] office in 1 week by her advanced practitioner. Charges/Coding Visit Charges Inpatient E&M: 42906 [facility] Hosp 03/27/25 0934 Cosigner Signature (if applicable): CC: ~ Signed [facility]05-07-2025 Progress note Author Derrick Chacon [facility] Note Date/Time March 26, 2025 5:19pm [facility] Medical Records Department [address] [place] [address] Progress Note - Hospitalist 03/26/25 1716 MR#: [id number] Acct: [id number] Name: KELVIN LEE Jr. Rep #:[id number] : 1955 69 From: Derrick Henry PCP: Dr. Lee Mathews MD Status :ADM IN Location: [place] [address] Reason for Visit Reason for Visit: Diagnoses [...] 8.1, Magnesium 2.2, [place] [address] H Rhythm Strip Rhythm Strip: A-fib Rate: [...] reported normal coronaries. Dilated cardiomyopathy. Seen by boring machine feeder recommend continue IV furosemide. Spironolactone added. SGLT2 [...] systemic anticoagulation Charges/Coding Visit Charges Inpatient E&M: 42074 Subs Hosp L2 03/26/25 1719 <Electronically signed by Derrick Chacon MD> Cosigner Signature (if applicable): CC: ~ Signed [facility] Work Phone: 1(351) 432-353205-07-2025 Progress note [facility] Medical Records Department [address] [place] [address] Progress Note - Hospitalist 03/26/25 1716 MR#: [id number] Acct: [id number] Name: KELVIN LEE Jr. Rep #:[id number] : 1955 69 From: Derrick Henry PCP: Dr. Lee Mathews MD Status :[facility] Reason for Visit Reason for [...] 8.1, Magnesium 2.2, [place] [address] H Rhythm Strip Rhythm Strip: A-fib Rate: [...] systemic anticoagulation Charges/Coding Visit Charges Inpatient E&M: 28696 Subs Hosp L2 03/26/25 1719 Cosigner Signature (if applicable): CC: ~ Signed [facility]05-07-2025 Progress note Author Madhu Bautista [facility] Note Date/Time March 26, 2025 9:35am [facility] Medical Records Department [address] [place] [address] Progress Note - Cardiology 03/26/25924 MR#: [id number] Acct: [id number] Name: KELVIN LEE Jr. Rep #:[id number] : 1955 69 From: Madhu Bautista MD PCP: Dr. Lee Mathews MD Status :ADM IN Location: [place] [address] Subjective Subjective Patient sleeping in the bedside [...] be reevaluated in our office at the [facility] 1 week after discharge with an ECG [...] hours. 4. After discharge follow-up in the [facility] office in 1 week for ECG and further treatment options as noted in #2 above. Charges/Coding Visit Charges Inpatient E&M: 53077 Subs Hosp L3 03/26/25934 <Electronically signed by Madhu Bautista MD> Cosigner Signature (if applicable): CC: ~ Signed [facility] Work Phone: 1(158) 518-435505-07-2025 Progress note [facility] Medical Records Department [address] [place] [address] Progress Note - Cardiology 03/26/25924 MR#: [id number] Acct: [id number] Name: KELVIN LEE Jr. Rep #:[id number] : 1955 69 From: Madhu Bautista MD PCP: Dr. Lee Mathews MD Status :ADM IN Location: [place] [address] Subjective Subjective Patient sleeping in the bedside [...] be reevaluated in our office at the [facility] 1 week after discharge with an ECG [...] hours. 4. After discharge follow-up in the [facility] office in 1 week for ECG and further treatment options as noted in #2 above. Charges/Coding Visit Charges Inpatient E&M: 11097 Subs Hosp L3 03/26/25 0935 Cosigner Signature (if applicable): CC: ~ Signed [facility]05-06-2025 Progress note Author Derrick Chacon [facility] Note Date/Time March 25, 2025 4:30pm [facility] Medical Records Department [address] [place] [address] Progress Note - Hospitalist 03/25/25 1626 MR#: [id number] Acct: [id number] Name: KELVIN LEE JrSavita Rep #:[id number] : 1955 69 From: Derrick Henry PCP: Dr. Lee Mathews MD Status :ADM IN Location: [place] [address]- 1 Reason for Visit Reason for Visit: [...] reported normal coronaries. Dilated cardiomyopathy. Seen by boring machine feeder recommend continue IV furosemide. Spironolactone added. SGLT2 [...] systemic anticoagulation Charges/Coding Visit Charges Inpatient E&M: 52463 Subs Hosp L2 03/25/25 1630 <Electronically signed by Derrick Cahcon MD> Cosigner Signature (if applicable): CC: ~ Signed [facility] Work Phone: 1(665) 293-157305-06-2025 Progress note [facility] Medical Records Department [address] [place] [address] Progress Note - Hospitalist 03/25/25 1626 MR#: [id number] Acct: [id number] Name: KELVIN LEE Jr. Rep #:[id number] : 1955 69 From: Derrick Henry PCP: Dr. Lee Mathews MD Status :ADM IN Location: [place] [address]- Reason for Visit Reason for Visit: Diagnoses [...] systemic anticoagulation Charges/Coding Visit Charges Inpatient E&M: 68619 Subs Hosp L2 03/25/25 1630 Cosigner Signature (if applicable): CC: ~ Signed [facility]05-06-2025 Progress note Author Madhu Bautista [facility] Note Date/Time March 25, 2025 9:54am [facility] Medical Records Department [address] [place] [address] Progress Note - Cardiology 03/25/25 0822 MR#: [id number] Acct: [id number] Name: KELVIN LEE JrSavita Rep #:[id number] : 1955 69 From: Madhu Bautista MD PCP: Dr. Lee Mathews MD Status :ADM IN Location: [place] [address] Subjective Subjective Patient seen at the bedside [...] Cosigner Signature (if applicable): CC: ~ Signed [facility] Work Phone: 1(672) 392-506705-06-2025 Progress note [facility] Medical Records Department [address] [place] [address] Progress Note - Cardiology 03/25/25821 MR#: [id number] Acct: [id number] Name: KELVIN LEE Jr. Rep #:[id number] : 1955 69 From: Madhu Bautista MD PCP: Dr. Lee Mathews MD Status :ADM IN Location: [place] [id number]- 1 Subjective Subjective Patient seen at the [...] Cosigner Signature (if applicable): CC: ~ Signed [facility]05-05-2025 Progress note Author Derrick Chacon [facility] Note Date/Time March 24, 2025 4:44pm [facility] Medical Records Department [address] [address] Progress Note - Hospitalist 03/24/25 1424 MR#: [id number] Acct: [id number] Name: KELVIN LEE JrSavita Rep #:[id number] : 1955 69 From: Derrick Henry PCP: Dr. Lee Mathews MD Status :ADM IN Location: [place] [id number]- 1 Reason for Visit Reason for Visit: [...] % (Auto) 56.7, Lymph % (Auto) 31.6, [place] % (Auto) 10.2 H, Eos % (Auto) [...] reported normal coronaries. Dilated cardiomyopathy. Seen by boring machine feeder recommend continue IV furosemide and then switch [...] systemic anticoagulation Charges/Coding Visit Charges Inpatient E&M: 42814 Subs Hosp L2 03/24/25 1644 <Electronically signed by Derrick Cahcon MD> Cosigner Signature (if applicable): CC: ~ Signed [facility] Work Phone: 1(314) 550-369105-05-2025 Progress note [facility] Medical Records Department [address] [place] [address] Progress Note - Hospitalist 03/24/25 1424 MR#: [id number] Acct: [id number] Name: KELVIN LEE JrSavita Rep #:[id number] : 1955 69 From: Derrick Henry PCP: Dr. Lee Mathews MD Status :ADM IN Location: [place] [address] Reason for Visit Reason for Visit: Diagnoses [...] Neut %(Auto) 56.7, Lymph % (Auto) 31.6, [place] % (Auto) 10.2 H, Eos % (Auto) [...] systemic anticoagulation Charges/Coding Visit Charges Inpatient E&M: 64136 Subs Hosp L2 03/24/25 1644 Cosigner Signature (if applicable): CC: ~ Signed [facility]05-05-2025 Progress note Author Carlton Keyes [facility] Note Date/Time March 24, 2025 10:56a m [facility] Medical Records Department [address] [place] [address] Progress Note - Cardiology 03/24/25 1051 MR#: [id number] Acct: [id number] Name: KELVIN LEE Jr. Rep #:[id number] : 1955 69 From: Carlton Keyes MD PCP: Dr. Lee Mathews MD Status :ADM IN Location: [place] [id number]- 1 Subjective Subjective Patient seen and evaluated, [...] % (Auto) 56.7, Lymph % (Auto) 31.6, [place] % (Auto) 10.2 H, Eos % (Auto) [...] % (Auto) 56.7, Lymph % (Auto) 31.6, [place] % (Auto) 10.2 H, Eos % (Auto) 0.7, Baso % (Auto)0.4, Absolute Neuts (auto) 4.2, Nucleated RBC % 0, APTT 87.8 H, Sodium 138, Potassium 3.7, Chloride 97 L, Carbon Dioxide 29.1, Anion Gap 12, BUN 26 H, Creatinine 1.26 H, Est GFR (MDRD) Non-Af 61, BUN/Creatinine Ratio 20.5 H, [id number] H, Calcium 8.2, Phosphorus 4.4, Magnesium 2.1, [...] Cosigner Signature (if applicable): CC: ~ Signed [facility] Work Phone: 1(104) 877-906605-05-2025 Progress note [facility] Medical Records Department [address] [place] [address] Progress Note - Cardiology 03/24/25 1051 MR#: [id number] Acct: [id number] Name: KELVIN LEE JrSavita Rep #:[id number] : 1955 69 From: Carlton Keyes MD PCP: Dr. Lee Mathews MD Status :ADM IN Location: [place] [address] Subjective Subjective Patient seen and evaluated, and [...] Neut %(Auto) 56.7, Lymph % (Auto) 31.6, [place] % (Auto) 10.2 H, Eos % (Auto) [...] % (Auto) 56.7, Lymph % (Auto) 31.6, [place] % (Auto) 10.2 H, Eos % (Auto) 0.7, Baso % (Auto)0.4, Absolute Neuts (auto) 4.2, Nucleated RBC % 0, APTT 87.8 H,Sodium 138, Potassium 3.7, Chloride 97 L, Carbon Dioxide 29.1, Anion Gap 12, BUN 26 H, Creatinine 1.26 H, Est GFR (MDRD) Non-Af 61, BUN/Creatinine Ratio 20.5 H, [id number] H, Calcium 8.2, Phosphorus 4.4, Magnesium 2.1, [...] Cosigner Signature (if applicable): CC: ~ Signed [facility]05-04-2025 Progress note Author Krissy Freitas [facility] Note Date/Time March 23, 2025 3:23pm [facility] Medical Records Department [address] [place] [address] Progress Note - Cardiology 03/23/25 1514 MR#: [id number] Acct: [id number] Name: KELVIN LEE JrSavita Rep #:[id number] : 1955 69 From: Krissy Freitas MD PCP: Dr. Lee Mathews MD Status :ADM IN Location: [facility] [id number]- 1 Subjective Subjective Family at bedside at [...] Neut % (Auto) 58.6, Lymph % (Auto) 28.8,[place] % (Auto) 10.5 H, Eos % (Auto) [...] Neut % (Auto)58.6, Lymph % (Auto) 28.8, [place] % (Auto) 10.5 H, Eos % (Auto) [...] the current treatment. On review of the cardiac care nurse patient had nonsustained V. tach DAVID with [...] well as the nursing staff Krissy Freitas MD,LOCATED WITHIN [facility] floor covering contractor 03/23/25 1523 <Electronically signed by Krissy Freitas MD> Cosigner Signature (if applicable): CC: ~ Signed [facility] Work Phone: 1(309) 305-897305-04-2025 Progress note [facility] Medical Records Department [address] [place] [address] Progress Note - Cardiology 03/23/25 1514 MR#: [id number] Acct: [id number] Name: KELVNI LEE Jr. Rep #:[id number] : 1955 69 From: Krissy Freitas MD PCP: Dr. Lee Mathews MD Status :ADM IN Location: [place] [address] Subjective Subjective Family at bedside at time [...] 0.500, Neut% (Auto) 58.6, Lymph % (Auto) 28.8,[place] % (Auto) 10.5 H, Eos % (Auto) [...] Neut % (Auto)58.6, Lymph % (Auto) 28.8, [place] % (Auto) 10.5 H, Eos % (Auto) [...] the current treatment. On review of the cardiac care nurse patient had nonsustained V. tach DAVID with [...] well as the nursing staff Krissy Freitas MD,[facility]ATED [facility]IN [facility] floor covering contractor 03/23/25 1523 Cosigner Signature (if applicable): CC: ~ Signed [facility]05-04-2025 Progress note Author Stanley Craig [facility] Note Date/Time March 23, 2025 8:28am [facility] Medical Records Department [address] [place] [address] Progress Note - Hospitalist 03/23/25 0814 MR#: [id number] Acct: [id number] Name: KELVIN LEE Jr. Rep #:[id number] : 1955 69 From: Stanley Craig MD PCP: Dr. Lee Mathews MD Status :ADM IN Location: [place] [id number]- Reason for Visit Reason for Visit: Diagnoses [...] Neut % (Auto) 58.6, Lymph % (Auto) 28.8,[place] % (Auto) 10.5 H, Eos % (Auto) [...] systemic anticoagulation Charges/Coding Visit Charges Inpatient E&M: 81852 Subs Hosp L3 03/23/25 0879 <Electronically signed by Stanley Craig MD> Cosigner Signature (if applicable): CC: ~ Signed [facility] Work Phone: 1(308) 824-188405-04-2025 Progress note [facility] Medical Records Department [address] [place] [address] Progress Note - Hospitalist 03/23/25 0814 MR#: [id number] Acct: [id number] Name: KELVIN LEE Jr. Rep #:[id number] : 1955 69 From: Stanley Craig MD PCP: Dr. Lee Mathews MD Status :ADM IN Location: [place] [address] Reason for Visit Reason for Visit: Diagnoses [...] 0.500, Neut% (Auto) 58.6, Lymph % (Auto) 28.8,[place] % (Auto) 10.5 H, Eos % (Auto) [...] systemic anticoagulation Charges/Coding Visit Charges Inpatient E&M: 75140 Subs Hosp L3 03/23/25 0828 Cosigner Signature (if applicable): CC: ~ Signed [facility]05-03-2025 Progress note Author Krissy Freitas [facility] Note Date/Time March 22, 2025 4:39pm [facility] Medical Records Department [address] [place] [address] Progress Note - Cardiology 03/22/25 1620 MR#: [id number] Acct: [id number] Name: KELVIN LEE Jr. Rep #:[id number] : 1955 69 From: Krissy Freitas MD PCP: Dr. Lee Mathews MD Status :ADM IN Location: [address] 1 Subjective Subjective Patient seen and [...] Neut % (Auto) 53.3, Lymph % (Auto) 35.9,[place] % (Auto) 9.2, Eos % (Auto) 0.9, [...] Neut % (Auto)53.3, Lymph % (Auto) 35.9, [place] % (Auto) 9.2, Eos % (Auto) 0.9, [...] Exam Cardio Cardio Narrative: Review of cardiac care nurse showed episodes of nonsustained V. tach With [...] require LifeVest prior to discharge Krissy Freitas MD,[facility]IN [facility] floor covering contractor 03/22/25 1038 <Electronically signed by Krissy Freitas MD> Cosigner Signature (if applicable): CC: ~ Signed [facility] Work Phone: 1(498) 947-434205-03-2025 Progress note [facility] Medical Records Department [address] [place] [address] Progress Note - Cardiology 03/22/25 1620 MR#: [id number] Acct: [id number] Name: KELVIN LEE Rep #:[id number] : 1955 69 From: Krissy Freitas MD PCP: Dr. Lee Mathews MD Status :ADM IN Location: [place] 1239329- Subjective Subjective Patient seen and evaluated today [...] 0.400, Neut% (Auto) 53.3, Lymph % (Auto) 35.9,[place] % (Auto) 9.2, Eos % (Auto) 0.9, [...] Neut % (Auto)53.3, Lymph % (Auto) 35.9, [place] % (Auto) 9.2, Eos % (Auto) 0.9, [...] Exam Cardio Cardio Narrative: Review of cardiac care nurse showed episodes of nonsustained V. tach With [...] require LifeVest prior to discharge Krissy Freitas MD,[facility]ATED [facility]IN [facility] floor covering contractor 03/22/25 6561 Cosigner Signature (if applicable): CC: ~ Signed [facility]05-03-2025 Progress note Author Stanley Craig [facility] Note Date/Time March 22, 2025 9:34am [facility] Medical Records Department [address] [place] [address] Progress Note - Hospitalist 03/22/25 09 MR#: [id number] Acct: [id number] Name: KELVIN LEE JrSavita Rep #:[id number] : 1955 69 From: Stanley Craig MD PCP: Dr. Lee Mathews MD Status :ADM IN Location: [place] [id number]- 1 Reason for Visit Reason for Visit: [...] Neut % (Auto) 53.3, Lymph % (Auto) 35.9,[place] % (Auto) 9.2, Eos % (Auto) 0.9, [...] with apixaban Charges/Coding Visit Charges Inpatient E&M: 30205 Subs Hosp L2 03/22/25 0934 <Electronically signed by Stanley Craig MD> Cosigner Signature (if applicable): CC: ~ Signed [facility] Work Phone: 1(432) 352-531505-03-2025 Progress note [facility] Medical Records Department [address] [place] [address] Progress Note - Hospitalist 03/22/25 0912 MR#: [id number] Acct: [id number] Name: KELVIN LEE JrSavita Rep #:[id number] : 1955 69 From: Stanley Craig MD PCP: Dr. Lee Mathews MD Status :ADM IN Location: [place] [address] Reason for Visit Reason for Visit: Diagnoses [...] 0.400, Neut% (Auto) 53.3, Lymph % (Auto) 35.9,[place] % (Auto) 9.2, Eos % (Auto) 0.9, [...] with apixaban Charges/Coding Visit Charges Inpatient E&M: 87617 Subs Hosp L2 03/22/25 7529 Cosigner Signature (if applicable): CC: ~ Signed [facility]05-02-2025 Consult note Author Krissy Freitas [facility] Note Date/Time March 21, 2025 1:16pm [facility] Medical Records Department [address] [place] [address] Consultation - Cardiology 03/21/25 1305 MR#: [id number] Acct: [id number] Name: KELVIN LEE Jr. Rep #:[id number] : 1955 69 From: Krissy Freitas MD PCP: Dr. Lee Mathews MD Status :ADM IN Location: [place] [address] Assessment & Plan Assessment/Plan (1) Dyspnea: (2) [...] pain In the on review of the cardiac care nurse noted the patient had A-fib with RVR Has been on IV Cardizem which discontinued. Due to negative inotropic effect patient already had severe LV dysfunction with Will continue on on beta-shaniqua metoprolol in addition to low-dose digoxin. Will evaluate with BNP/trops. Will continue to monitor and follow-up clinically. Krissy Freitas MD,LOCATED WITHIN [facility] HPI Consult Data Date of Consult: 03/21/25 HPI Narrative Reason for Consultation: Acute systolic heart failure/A-fib with RVR HPI Narrative: KELVIN LEE, is a 69 M who presents [facility] Medical History PAF (paroxysmal atrial fibrillation) CKD [...] with the nursing staff Review of the cardiac care nurse showed A-fib with RVR Cardiac exam S1-S2 [...] Neut % (Auto) 58.4, Lymph % (Auto) 31.0,[place] % (Auto) 9.7, Eos % (Auto) 0.4, [...] (MDRD) Non-Af 49 L, BUN/Creatinine Ratio 16.9, Bchtvqs343 H, Calcium 8.1, Magnesium 2.0 03/20/25 21:05: [...] Neut % (Auto) 57.9, Lymph % (Auto) 31.8,[place] % (Auto) 9.5, Eos % (Auto) 0.3, [...] Neut % (Auto)58.4, Lymph % (Auto) 31.0, [place] % (Auto) 9.7, Eos % (Auto) 0.4, [...] Neut % (Auto)57.9, Lymph % (Auto) 31.8, [place] % (Auto) 9.5, Eos % (Auto) 0.3, [...] Findings suggestive of vascular congestion. Reading [facility] Echocardiogram 03/21/25 05:55 Interpretation Summary The [...] applicable): CC: Dr. Lee Mathews MD~ Signed [facility] Work Phone: 1(136) 333-705905-02-2025 Consult note [facility] Medical Records Department [address] [place] [address] Consultation - Cardiology 03/21/25 1305 MR#: [id number] Acct: [id number] Name: KELVIN LEE Jr. Rep #:[id number] : 1955 69 From: Krissy Freitas MD PCP: Dr. Lee Mathews MD Status :ADM IN Location: [place] [id number]- 1 Assessment & Plan Assessment/Plan (1) Dyspnea: [...] pain In the on review of the cardiac care nurse noted the patient had A-fib with RVR Has been on IV Cardizem which discontinued. Due to negative inotropic effect patient already had severe LV dysfunction with Will continue on on beta-shaniqua metoprolol in addition to low-dose digoxin. Will evaluate with BNP/trops. Will continue to monitor and follow-up clinically. Krissy Freitas MD,LOCATED WITHIN [facility] HPI Consult Data Date of Consult: 03/21/25 HPI Narrative Reason for Consultation: Acute systolic heart failure/A-fib with RVR HPI Narrative: KELVIN LEE, is a 69 M who presents [facility] Medical History PAF (paroxysmal atrial fibrillation) CKD [...] with the nursing staff Review of the cardiac care nurse showed A-fib with RVR Cardiac exam S1-S2 [...] 0.400, Neut% (Auto) 58.4, Lymph % (Auto) 31.0,[place] % (Auto) 9.7, Eos % (Auto) 0.4, Baso % (Auto) 0.1, AbsoluteNeuts (auto) 4.5, Absolute Lymphs (auto) 2.40, Nucleated RBC % 0, Platelet Estimate MOD DEC, Polychromasia 1+, Anisocytosis 1+, Sodium 133, Potassium 4.3, Chloride 93 L, Carbon Dioxide 30.7, Anion Gap 10, BUN 25 H, Creatinine 1.50 H, Estim Creat Clear Calc 58.08, Est GFR (MDRD) Non-Af 49 L, BUN/Creatinine Ratio 16.9, Lbjzsrt621 H, Calcium 8.1, Magnesium 2.0 03/20/25 21:05: [...] 0.400, Neut% (Auto) 57.9, Lymph % (Auto) 31.8,[place] % (Auto) 9.5, Eos % (Auto) 0.3, [...] Neut % (Auto)58.4, Lymph % (Auto) 31.0, [place] % (Auto) 9.7, Eos % (Auto) 0.4, [...] Neut % (Auto)57.9, Lymph % (Auto) 31.8, [place] % (Auto) 9.5, Eos % (Auto) 0.3, [...] Findings suggestive of vascular congestion. Reading [facility] Echocardiogram 03/21/25 05:55 Interpretation Summary The estimated ejection fraction is 10-15 %. Moderate concentric left ventricular hypertrophy. Moderate global right ventricular systolic dysfunction. Moderately dilated right ventricle. The left atrium is mildly enlarged. The right atrium is mildly enlarged. Mild (1+) mitral valve insufficiency. Mild (1+) eccentric tricuspid valve insufficiency. Ordering Physician: Chrissy^Sopiha^Da^^ Referring Physician: Lee Mathews MD Performed By: Reema Shepard RCS 03/21/25 1316 Cosigner Signature (if applicable): CC: Dr. Lee Mathews MD~ Signed [facility]05-02-2025 Progress note Author Stanley Craig [facility] Note Date/Time March 21, 2025 10:28a m [facility] Medical Records Department [address] [place] [address] Progress Note - Hospitalist 03/21/25 1016 MR#: [id number] Acct: [id number] Name: KELVIN LEE Rep #:[id number] : 1955 69 From: Stanley Craig MD PCP: Dr. Lee Mathews MD Status :[facility] Reason for Visit Reason for [...] Neut % (Auto) 58.4, Lymph % (Auto) 31.0,[place] % (Auto) 9.7, Eos % (Auto) 0.4, [...] (MDRD) Non-Af 49 L, BUN/Creatinine Ratio 16.9, Ehitdbi039 H, Calcium 8.1, Magnesium 2.0 03/20/25 21:05: [...] Neut % (Auto) 57.9, Lymph % (Auto) 31.8,[place] % (Auto) 9.5, Eos % (Auto) 0.3, [...] Findings suggestive of vascular congestion. Reading [facility] Physical Exam Narrative GENERAL: cooperative HEENT: [...] with apixaban Charges/Coding Visit Charges Inpatient E&M: 48704 Subs Hosp L3 03/21/25 1021 <Electronically signed by Stanley Craig MD> Cosigner Signature (if applicable): CC: ~ Signed [facility] Work Phone: 1(497) 210-244305-02-2025 Progress note [facility] Medical Records Department [address] [place] [address] Progress Note - Hospitalist 03/21/25 1016 MR#: [id number] Acct: [id number] Name: KELVIN LEE Jr. Rep #:[id number] : 1955 69 From: Stanley Craig MD PCP: Dr. Lee Mathews MD Status :ADM IN Location: [place] [address] Reason for Visit Reason for Visit: Diagnoses [...] 0.400, Neut% (Auto) 58.4, Lymph % (Auto) 31.0,[place] % (Auto) 9.7, Eos % (Auto) 0.4, Baso % (Auto) 0.1, AbsoluteNeuts (auto) 4.5, Absolute Lymphs (auto) 2.40, Nucleated RBC % 0, Platelet Estimate MOD DEC, Polychromasia 1+, Anisocytosis 1+, Sodium 133, Potassium 4.3, Chloride 93 L, Carbon Dioxide 30.7, Anion Gap 10, BUN 25 H, Creatinine 1.50 H, Estim Creat Clear Calc 58.08, Est GFR (MDRD) Non-Af 49 L, BUN/Creatinine Ratio 16.9, Rxfilkh043 H, Calcium 8.1, Magnesium 2.0 03/20/25 21:05: [...] 0.400, Neut% (Auto) 57.9, Lymph % (Auto) 31.8,[place] % (Auto) 9.5, Eos % (Auto) 0.3, [...] Findings suggestive of vascular congestion. Reading [facility] Physical Exam Narrative GENERAL: cooperative HEENT: [...] with apixaban Charges/Coding Visit Charges Inpatient E&M: 86898 Subs Hosp L3 03/21/25 1028 Cosigner Signature (if applicable): CC: ~ Signed [facility]05-02-2025 Discharge summary Author Dae Mckeon [facility] Note Date/Time March 20, 2025 10:29p m [facility] Medical Records Department [address] [place] [address] Emergency Department Summary 03/20/25 MR#: [id number] Acct: [id number] Name: KELVIN LEE Jr. Rep #:[id number] : 1955 69 From: Dae Mckeon MD PCP: Dr. Lee Mathews MD Status :ADM IN Location: [place] [address] HPI <FELICIA Murillo - Last Filed: 03/20/25 [...] fevers, chills, chest pain, or recent illness. [facility] <FELICIA Murillo - Last Filed: 03/20/25 20:38> [facility] Medical History (Updated 03/20/25 @ 20:38 by [...] <FELICIA Murillo - Last Filed: 03/20/25 20:38> [facility] Narrative Medical decision making narrative: Patient [...] % (Auto) 58.4 Lymph % (Auto) 31.0 [place] % (Auto) 9.7 Eos % (Auto) 0.4 [...] Findings suggestive of vascular congestion. Reading [facility] EKG Initial EKG: Comments: 139 bpm, A-fib with RVR, no ST elevation, interpreted by attending ED physician <Dr. Dae Mckeon MD - Last Filed: 03/20/25 18:57> [facility] Lab Data Labs: Laboratory Results - last 24 hr 03/20/25 17:33 WBC 7.8 RBC 5.11 Hgb 16.1 Hct 48.7 MCV 95.3 H MCH 31.5 MCHC 33.1 RDW Std Deviation 53.7 H RDW Coeff of Hair 15.2 H Plt Count 87 L MPV 11.3 Immature Gran % (Auto) 0.400 Neut % (Auto) 58.4 Lymph % (Auto) 31.0 [place] % (Auto) 9.7 Eos % (Auto) 0.4 [...] Findings suggestive of vascular congestion. Reading [facility] Treatment and Re-Evaluation Comments:: I have [...] COPD, Dyspnea Disposition Disposition: Acute Care Hospital [facility] Discharge Date/Time: 03/20/25 20:30 What to do if you have Problems For any increased pain, shortness of breath, bleeding, nausea or vomiting, chest pain, or any unexpected problems, contact your Primary Care Provider. Call [facility] ([phone]) or report to the closest Emergency Room. Call 911 if necessary. 03/20/252228 <Electronically signed by Dae Mckeon MD> Cosigner Signature (if applicable): 03/20/252037 <Electronically signed by Roselia DUARTE> CC: Dr. Lee Mathews MD ~ Signed [facility] Work Phone: 1(203) 330-528505-01-2025 History and physical note Author Sophia Lowe [facility] Note Date/Time March 20, 2025 8:46pm [facility] Medical Records Department [address] [place] [address] H&P Exam - Hospitalist 03/20/251950 MR#: [id number] Acct: [id number] Name: KELVIN LEE JrSavita Rep #:[id number] : 1955 69 From: Sophia Lowe MD PCP: Dr. Lee Mathews MD Status :ADM IN Location: [facility] QQI877- 1 HPI - General General Date of Admission: 03/20/25 Date of Service: 03/20/25 Chief Complaint: Dyspnea, orthopnea, weight gain, edema. HPI Narrative The patient is a 69 y/o M w/ PMHx: Morbid obesity, HTN, HLD, Anxiety and Depression, COPD, Tobacco use, HFrEF, PAF who presents to the [facility] ED on 03/20/2025 with history of approximately [...] drip given no marked change in rate. [facility] Medical History PAF (paroxysmal atrial fibrillation) CKD [...] Neut % (Auto) 58.4, Lymph % (Auto) 31.0,[place] % (Auto) 9.7, Eos % (Auto) 0.4, [...] (MDRD) Non-Af 49 L, BUN/Creatinine Ratio 16.9, Nbjlxzx032 H, Calcium 8.1 Assessment & Plan Assessment/Plan (1) Acute systolic CHF (congestive heart failure): (2) Atrial fibrillation with RVR: PLAN: Plan The patient is a 69 y/o M w/ PMHx: Morbid obesity, HTN, HLD, Anxiety and Depression, COPD, Tobacco use, HFrEF, PAF who presents to the [facility] ED on 03/20/2025 with history of approximately [...] 16 minutes. Charges/Coding Visit Charges Inpatient E&M: 48044 Init Hosp L3 Procedures Hospitalists Procedures: 28132 Advncd Care Plan 30 Min 03/20/252045 <Electronically signed by Sophia Lowe MD> Cosigner Signature (if applicable): CC: Dr. Sophia Lowe MD; Dr. Lee Mathews MD~ Signed [facility] Work Phone: 1(570) 656-413105-01-2025 Discharge summary [facility] Medical Records Department [address] [place] [address] Emergency Department Summary 03/20/25 MR#: [id number] Acct: [id number] Name: KELVIN LEE Jr. Rep #:[id number] : 1955 69 From: Dae Mckeon MD PCP: Dr. Lee Mathews MD Status :ADM IN Location: [place] [address] HPI History of Present Illness Chief Complaint: [...] any fevers,chills, chest pain, or recent illness. [facility] Medical History (Updated 03/20/25 @ 20:38 by [...] % (Auto) 58.4 Lymph % (Auto) 31.0 [place] % (Auto) 9.7 Eos % (Auto) 0.4 [...] Findings suggestive of vascular congestion. [facility] E[facility] Initial EKG: Comments: 139 bpm, A-fib [...] % (Auto) 58.4 Lymph % (Auto) 31.0 [place] % (Auto) 9.7 Eos % (Auto) 0.4 [...] COPD, Dyspnea Disposition Disposition: Acute Care Hospital [facility] Discharge Date/Time: 03/20/25 20:30 What to do if you have Problems For any increased pain, shortness of breath, bleeding, nausea or vomiting, chest pain, or any unexpected problems, contact your Primary Care Provider. Call [facility] ([phone]) or report to the closest Emergency Room. Call 911 if necessary. 03/20/252228 Cosigner Signature (if applicable): 03/20/252037 CC: Dr. Lee Mathews MD ~ Signed [facility]05-01-2025 Evaluation note* Diagnosis Onset Date Resolution Status Admit Date Acute systolic CHF (congesti ve heart failure) acute March 20, 2025 7: 54pm Atrial fibrillation with RVR acute March 20, 2025 7:54pm Cardiac LV ejection fraction 10-20% acute March 20, 2025 7: 54pm Dyspnea acute March 20, 2025 7:54pm History of COPD chronic March 20, 2025 7:54pm Smoker chronic March 20, 2025 7:54pm [facility] Work Phone: 1(361) 617-128505-01-2025 Evaluation note* Diagnosis Onset Date Resolution Status [...] 1:34pm Dyspnea acute April 03, 2025 1:34pm [facility] Work Phone: 1(920) 612-867305-01-2025 Evaluation note* Diagnosis Onset Date Resolution Status [...] 10-20% inactive April 03, 2025 1 :34pm [facility] Work Phone: 1(865) 445-708205-01-2025 Evaluation note* Diagnosis Onset Date Resolution Status [...] with RVR acute May 27, 2025 1:44pm [facility] Work Phone: 1(749) 279-394005-01-2025 Evaluation note* Diagnosis Onset Date Resolution Status [...] ejection fraction 10-20% inactive July 04 1:26pm [facility] Work Phone: 1(808) 812-878505-01-2025 Evaluation note* Diagnosis Onset Date Resolution Status [...] ejection fraction 10-20% acute July 04 1:26pm [facility] Work Phone: 1(325) 101-503605-01-2025 History and physical note [facility] Medical Records Department [address] [place] [address] H&P Exam - Hospitalist 03/20/251950 MR#: [id number] Acct: [id number] Name: MARYKELVIN Rep #:[id number] : 1955 69 From: Sophia Lowe MD PCP: Dr. Lee Mathews MD Status :[facility] - General General Date of Admission: 03/20/25 Date of Service: 03/20/25 Chief Complaint: Dyspnea, orthopnea, weight gain, edema. HPI Narrative The patient is a 69 y/o M w/ PMHx: Morbid obesity, HTN, HLD, Anxiety and Depression, COPD, Tobacco use, HFrEF, PAF who presents to the [facility] ED on 03/20/2025 with history of approximately [...] drip given no marked change in rate. [facility] Medical History PAF (paroxysmal atrial fibrillation) CKD [...] 0.400, Neut% (Auto) 58.4, Lymph % (Auto) 31.0,[place] % (Auto) 9.7, Eos % (Auto) 0.4, Baso % (Auto) 0.1, AbsoluteNeuts (auto) 4.5, Absolute Lymphs (auto) 2.40, Nucleated RBC % 0, Platelet Estimate MOD DEC, Polychromasia 1+, Anisocytosis 1+, Sodium 133, Potassium 4.3, Chloride 93 L, Carbon Dioxide 30.7, Anion Gap 10, BUN 25 H, Creatinine 1.50 H, Estim Creat Clear Calc 58.08, Est GFR (MDRD) Non-Af 49 L, BUN/Creatinine Ratio 16.9, [id number] H, Calcium 8.1 Assessment & Plan Assessment/Plan (1) Acute systolic CHF (congestive heart failure): (2) Atrial fibrillation with RVR: PLAN: Plan The patient is a 69 y/o M w/ PMHx: Morbid obesity, HTN, HLD, Anxiety and Depression, COPD, Tobacco use, HFrEF, PAF who presents to the [facility] ED on 03/20/2025 with history of approximately [...] 16 minutes. Charges/Coding Visit Charges Inpatient E&M: 46909 Init Hosp L3 Procedures Hospitalists Procedures: 96386 Advncd Care Plan 30 Min 03/20/252045 Cosigner Signature (if applicable): CC: Dr. Sophia Lowe MD; Dr. Lee Mathews MD~ Signed [facility]05-01-2025 Radiology Diagnostic study note [facility] Imaging Services [address] [place] [address] Chest PA and Lateral MR#: [id number] Acct: [id number] Name: KELVIN LEE Jr. Rep #: [id number] : 1955 M 69 From: Filomena Mosher MD PCP: Dr. Lee Mathews MD Status: REG ER Study:Chest PA and Lateral Date of Exam: 03/20/25 Exam# [id number] Ordering Dr: Roselia Nieves PROCEDURE: CHEST PA [...] Dr. Lee Mathews MD; FELICIA Murillo ~ Recreational Programs Director: Signed [facility]04-15-2025 Radiology Diagnostic study note [facility] Imaging Services [address] [place] [address] Chest PA and Lateral MR#: [id number] Acct: [id number] Name: KELVIN LEE Jr. Rep #: [id number] : 1955 M 69 From: Isidro Viveros MD PCP: Dr. Lee Mathews MD Status: REG CLI Study:Chest PA and Lateral Date of Exam: 03/03/25 Exam# [id number] Ordering Dr: Brooke Mathews MD PROCEDURE: CHEST [...] of active or chronic tuberculosis. [facility] CC: Dr. Lee Mathews MD ~ Recreational Programs Director: [facility]igned [facility] note[facility] assessment information available [facility] Work Phone: Hospital Discharge instructionsAdditional Instructions Continue your current medications. No driving for the next 36 hours. Be very careful on steps. Have assistance. Due to the anesthesia we gave you today. 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 Return if feeling worse.[facility] Work Phone: Reason for referral (narrative)No reason for referral information availableWProMedica [facility] Work Phone: Family History Relationship Condition Age at Onset Recorded Date/T jose father History of blood clots Unknown Lupus erythematosus Unknown Disorder of intestine Unknown Malignant neoplasm of colon Unknown Malignant neoplasm of skin Unknown Cerebrovascular accident (CVA) Unknown mother Hypertension Unknown Advance Directives Advance Directive Response Recorded Date/ Time Living Will No November 13 4:00pm Power of Home Security Professional No November 13, 2021 4:00pm Advance Directive Response Recorded Date/ Time Do you have a Healthcare Power of Home Security Professional? No March 20, 2025 8:23pm Advance Directive Response Recorded Date/ Time Do you have a Healthcare Power of Home Security Professional? No March 20, 2025 8:23pm Advance Directives on File No May 01, 2025 1:04pm Living Will No May 01, 2025 1:04pm Do you have a Healthcare Power of Home Security Professional? No May 01, 2025 1:04pm Living Will No May 05, 2025 11:28am Do you have a Healthcare Power of Home Security Professional? No May 05, 2025 11:28am Advance Directives No May 05 11:28am Advance Directive Response Recorded Date/ Time Do you have a Healthcare Power of Home Security Professional? No March 20, 2025 8:23pm Advance Directives on File No May 01, 2025 1:04pm Living Will No May 01, 2025 1:04pm Do you have a Healthcare Power of Home Security Professional? No May 01, 2025 1:04pm Living Will No May 05, 2025 11:28am Do you have a Healthcare Power of Home Security Professional? No May 05, 2025 11:28am Advance Directives No May 05 11:28am Do you have a Healthcare Power of Home Security Professional? No July 18, 2025 4:54pm Chief Complaint [...] PAF RVR March 27, 2025 11:13a m [facility] 5/8 CHF April 03, 2025 1:34p m [...] PAF RVR March 27, 2025 11:13a m [facility] 58 CHF April 03, 2025 1:34p m [...] PAF RVR March 27, 2025 11:13a m [facility] 03/27 CHF April 03, 2025 1:34p m [...] PAF RVR March 27, 2025 11:13a m [facility] 03/27 CHF April 03, 2025 1:34p m [...] PAF RVR March 27, 2025 11:13a m [facility] 5/8 CHF April 03, 2025 1:34p m [...] PAF RVR March 27, 2025 11:13a m [facility] 5/8 CHF April 03, 2025 1:34p m [...] PAF RVR March 27, 2025 11:13a m [facility] 5/8 CHF April 03, 2025 1:34p m [...] PAF RVR March 27, 2025 11:13a m [facility] 5/8 CHF April 03, 2025 1:34p m [...] PAF RVR March 27, 2025 11:13a m [facility] 5/8 CHF April 03, 2025 1:34p m [...] St art: March 21, 2025 Dr. Sophia oLwe MD Other Provider [...] 2025 End: April 03, 2025 Ariane Perez DATA REPORTING ANALYST, DATA REPORTING ANALYST-C Attending Provider Active Start: April 03, 2025 End: April 03, 2025 Team Status: Inactive Member Role Status Dates Dr. Lee Mathews MD Primary Care Provider Acti ve Start: April 03, 2025 End: April 03, 2025 Ariane Perez NP, DATA REPORTING ANALYST-C Attending Provider Active Start: April 03, 2025 End: April 03, 2025 Ariane Perez DATA REPORTING ANALYST, DATA REPORTING ANALYST-C Referring Provider Active Start: April 03, 2025 [...] 2025 End: April 03, 2025 Ariane Perez DATA REPORTING ANALYST, DATA REPORTING ANALYST-C Attending Provider Active Start: April 03, 2025 End: April 03, 2025 Team Status: Inactive Member Role/Relationship Status Dates Dr. Lee Mathews MD Primary Care Provider Acti ve Start: April 03, 2025 End: April 03, 2025 Ariane Perez DATA REPORTING ANALYST, DATA REPORTING ANALYST-C Attending Provider Active Start: April 03, 2025 End: April 03, 2025 Ariane Perez DATA REPORTING ANALYST, DATA REPORTING ANALYST-C Referring Provider Active Start: April 03, 2025 [...] ve Start: June 30, 2025 Dr. Carlton Keyes MD Attending Provider [...] St art: March 25, 2025 Dr. Sophia Loew MD Other Provider Active St art: March [...] 2025 End: April 03, 2025 Ariane Perez DATA REPORTING ANALYST, DATA REPORTING ANALYST-C Attending Provider Active Start: April 03, 2025 End: April 03, 2025 Team Status: Inactive Member Role/Relationship Status Dates Dr. Lee Mathews MD Primary Care Provider Acti ve Start: April 03, 2025 End: April 03, 2025 Ariane Perez DATA REPORTING ANALYST, DATA REPORTING ANALYST-C Attending Provider Active Start: April 03, 2025 End: April 03, 2025 Ariane Perez DATA REPORTING ANALYST, DATA REPORTING ANALYST-C Referring Provider Active Start: April 03, 2025 [...] ve Start: July 02, 2025 Ariane Perez DATA REPORTING ANALYST, DATA REPORTING ANALYST-C Attending Provider Active Start: July 02, 2025 Ariane Perez DATA REPORTING ANALYST, DATA REPORTING ANALYST-C Referring Provider Active Start: July 02, 2025 [...] ve Start: July 03, 2025 Ariane Perez DATA REPORTING ANALYST, DATA REPORTING ANALYST-C Attending Provider Active Start: July 03, 2025 Team Status: Inactive Member Role/Relationship Status Dates Dr. Lee Mathews MD Primary Care Provider Acti ve Start: July 04, 2025 End: July 04, 2025 Dr. Lee Mathews MD Referring Provider Active Start: July 04, 2025 End: July 04, 2025 Ariane Perez DATA REPORTING ANALYST, DATA REPORTING ANALYST-C Attending Provider Active Start: July 04, 2025 End: July 04, 2025 Team Status: Inactive Member Role/Relationship Status Dates Dr. Lee Mathews MD Primary Care Provider Acti ve Start: July 02, 2025 End: July 02, 2025 Ariane Perez DATA REPORTING ANALYST, DATA REPORTING ANALYST-C Attending Provider Active Start: July 02, 2025 End: July 02, 2025 Ariane Perez DATA REPORTING ANALYST, DATA REPORTING ANALYST-C Referring Provider Active Start: July 02, 2025 End: July 02, 2025 Team Status: Active Member Role/Relationship Status Dates Dr. Lee Mathews MD Primary Care Provider Acti ve Start: July 03, 2025 Ariane Perez DATA REPORTING ANALYST, DATA REPORTING ANALYST-C Attending Provider Active Start: July 03, 2025 Team Status: Inactive Member Role/Relationship Status Dates Dr. Lee Mathews MD Primary Care Provider Acti ve Start: July 04, 2025 End: July 04, 2025 Dr. Lee Mathews MD Referring Provider Active Start: July 04, 2025 End: July 04, 2025 Ariane Perez DATA REPORTING ANALYST, DATA REPORTING ANALYST-C Attending Provider Active Start: July 04, 2025 [...] 2025 End: April 03, 2025 Ariane Perez DATA REPORTING ANALYST, DATA REPORTING ANALYST-C Attending Provider Active Start: April 03, 2025 End: April 03, 2025 Team Status: Inactive Member Role/Relationship Status Dates Dr. Lee Mathews MD Primary Care Provider Acti ve Start: April 03, 2025 End: April 03, 2025 Ariane Perez DATA REPORTING ANALYST, DATA REPORTING ANALYST-C Attending Provider Active Start: April 03, 2025 End: April 03, 2025 Ariane Perez NP, DATA REPORTING ANALYST-C Referring Provider Active Start: April 03, 2025 [...] 2025 End: July 02, 2025 Ariane Perez DATA REPORTING ANALYST, DATA REPORTING ANALYST-C Attending Provider Active Start: July 02, 2025 End: July 02, 2025 Ariane Perez DATA REPORTING ANALYST, DATA REPORTING ANALYST-C Referring Provider Active Start: July 02, 2025 [...] ve Start: July 03, 2025 Ariane Perez DATA REPORTING ANALYST, DATA REPORTING ANALYST-C Attending Provider Active Start: July 03, 2025 Team Status: Inactive Member Role/Relationship Status Dates Dr. Lee Mathews MD Primary Care Provider Acti ve Start: July 04, 2025 End: July 04, 2025 Dr. Lee Mathews MD Referring Provider Active Start: July 04, 2025 End: July 04, 2025 Ariane Perez DATA REPORTING ANALYST, DATA REPORTING ANALYST-C Attending Provider Active Start: July 04, 2025 [...] section and content) DATE CREATED AUTHOR 07/18/2025 [facility] FOR RECORDS PERTAINING TO PATIENTS WHO ARE [...] BE BASED ON THE PRIMARY CLINICAL RECORDS. [employer] provides no warranty or guarantee of the accuracy or completeness of information in this document.
[2025-07-20 02:47] LABS: Troponin T High Sens 4 HR 27 ng/L (<=22)
[2025-07-20 06:23] LABS: Hematocrit 43.2 % (40-54); Hemoglobin 14.6 g/dL (13.0-16.5); Immature Granulocytes Count 0.030 X10^3/uL (0.0-0.0); Mean Corp Hgb Conc 33.8 g/dL (32-36); Mean Corpuscular Volume 94.7 fL (80-94); Mean Platelet Vol. 9.1 fl (6.2-12.0); NRBC Flagged by Analyzer 0 % (0-5); Platelet Count 142 K/mm3 (150-450); RBC Distribution Width CV 14.2 % (11.6-14.6); RBC Distribution Width SD 49.3 fl (35.1-43.9); Red Blood Count 4.56 M/mm3 (4.6-6.2); White Blood Count 6.6 K/mm3 (4.4-11.0)
[2025-07-20 06:48] LABS: AST(SGOT) 21 U/L (<=37); Alanine Aminotransfer ALT/SGPT 11 U/L (<=46); Albumin, Serum 3.7 g/dL (3.4-4.8); Alkaline Phosphatase 71 U/L (40-129); Anion Gap 9 (5-15); BUN 9 mg/dL (4-19); BUN/Creat Ratio 11.3 RATIO (10-20); Calcium,Total 8.4 mg/dL (7.6-11.0); Carbon Dioxide 25.5 mmol/L (21.0-32.0); Chloride 103 mmol/L (98-108); Estimated Creatinine Clearance 98.72 ml/min (50-250); Globulin 2.3 g/dL (2.2-4.2); Glucose 93 mg/dL (70-99); Potassium 4.3 mmol/L (3.3-5.1)
[2025-07-20] MEDS: Nicotine (PBKC) 14 MG Patch TD (08:53)
[2025-07-20] MEDS: APIXABAN 5 MG TABLET PO (08:53)
[2025-07-20 10:43] LABS: Mucous, Urine 0 SEEN /hpf (<or=2+); Red Blood Cells-Urine 0 SEEN /hpf (0-5); Squamous Epithelial Cells - UA 0 SEEN /hpf (0-5)
[2025-07-20 10:57] LABS: Color, Urine Yellow (Yellow); Glucose, Dipstick 1000 mg/dl (Normal); Ketone-Dipstick Negative (Negative); Leukocyte Esterase-Dipstick Negative /ul (Negative); Nitrite-Dipstick Negative (Negative); Occult Blood-Urine Negative /ul (Negative); Protein-Dipstick 15 mg/dl (Negative); Specific Gravity, Urine 1.010 (1.002-1.030); Urine Bilirubin Dipstick Negative (Negative)
--- NOTE | 2025-07-20 11:21 | PCM.CONS.C ---
Assessment & Plan Assessment/Plan (1) Anxiety in acute stress reaction: (2) Adverse drug reaction: QUALIFIERS: Encounter type: initial encounter Qualified Code(s): T50.905A - Adverse effect of unspecified drugs, medicaments and biological substances, initial encounter (3) Lightheadedness: (4) History of cardioversion: (5) Chronic anticoagulation: (6) Premature ventricular beats: PLAN: Cardiac care plan recommendation 70-year-old patient with multiple medical comorbidities Hide history of nonischemic cardiomyopathy with severe LV systolic dysfunction ejection fraction in the range of 10-15% He has remarkable improvement in LV function Ejection fraction from 55 His cardiac catheterization which showed normal coronary arteries. Recently had A-fib with RVR and underwent synchronized cardioversion Readmitted complaining of symptoms of lightheadedness and dizziness With the bradycardia Reviewed all his current medication. And discussed with the medical team. Patient had history of COPD chronic thrombocytopenia morbid obesity history of smoking. Denied history of alcohol intake. Cardiac care plan will be to continue to monitor on cardiac telemetry he had still symptoms of lightheadedness and had infrequent PVCs with nonsustained V. tach Would recommend low-dose beta-shaniqua on discharge. As well as low-dose JACKLYN inhibitor as tolerated by his blood pressure. And with the plan of monitoring with a Holter monitor and evaluating as an outpatient with cardiology team here at [facility]. Krissy Freitas MD,[facility] service control operator. HPI Consult Data Date of Consult: 07/20/25 HPI Narrative Reason for Consultation: Paroxysmal atrial fibrillation/symptomatic multiple PVCs NSVT HPI Narrative: KELVIN HERNANDEZ, is a 70 M who presents [facility] Medical History (Updated 07/20/25 @ 03:[address] Stanley Gonzalez, DO) Anxiety Atrial fibrillation Congestive heart failure (CHF) Cardiac LV ejection fraction 10-20% History of COPD PAF (paroxysmal atrial fibrillation) CKD (chronic kidney disease), stage II Thrombocytopenia COPD (chronic obstructive pulmonary disease) Morbid obesity HLD (hyperlipidemia) HTN (hypertension) Tobacco use Anxiety and depression Cancer Home Medications ?Medication ?Instructions ?Recorded ?Last Taken ?Type apixaban 5 mg tablet (Eliquis) 5 mg PO BID blood thinner #60 tabs 04/03/25 05/05/25 Rx empagliflozin 10 mg tablet 10 mg PO DAILY #30 tabs 04/03/25 Unknown Rx (Jardiance) spironolactone 25 mg tablet 25 mg PO DAILY #30 tabs 04/03/25 Unknown Rx metoprolol tartrate 50 mg tablet 50 mg PO BID #60 tabs 05/12/25 Unknown Rx lisinopril 5 mg tablet 5 mg PO QDAY #30 tabs 05/30/25 Unknown Rx furosemide 40 mg tablet 40 mg PO DAILY #90 tabs 06/19/25 Unknown Rx Allergy/AdvReac Type Severity Reaction Status Date / Time sertraline (From Zoloft) Allergy Other Verified 07/19/25 21:25 Family History Father History of blood clots Lupus Bowel disease Colon cancer Skin cancer CVA (cerebral vascular accident) Mother Hypertension Surgical History History of appendectomy Social History household members: spouse Smoking Status: Current every day smoker tobacco type: cigars alcohol intake: never substance use type: does not use additional social history: DOES USE ASPIRIN Physical Exam Cardio Cardio Narrative: Seen and evaluated at bedside Mild symptoms of lightheadedness seam stayer normal sinus rhythm, episodes of frequent PVCs with nonsustained V. tach Cardiac exam S1-S2 is irregular Chest exam clear to auscultation bilateral Examination lower extremity no lower extremity edema. Objective Data Vital Signs: Vital Signs Temp Pulse Resp BP Pulse Ox O2 Del Method 97.1 F L 63 18 109/86 H 96 Room Air 07/20/25 08:51 07/20/25 08:51 07/20/25 08:51 07/20/25 08:51 07/20/25 08:51 07/20/25 10:00 Oxygen Delivery Method Room Air Weight: 226 lb 3.108 oz Body Mass Index (BMI) 33.5 Intake & Output: Intake and Output for Last 24 Hours 07/18/25 07/19/25 07/20/25 23:59 23:59 23:59 Intake Total 1000 / 1000 Balance 1000 / 1000 Lab / Micro Data 07/20/25 06:05 07/20/25 06:05 Labs: Laboratory Results - last 24 hr 07/19/25 21:33: WBC 8.7, RBC 4.71, Hgb 15.2, Hct 44.3, MCV 94.1 H, MCH 32.3 H, MCHC 34.3, RDW Std Deviation 48.9 H, RDW Coeff of Hair 14.0, Plt Count 145 L, MPV 9.2, Immature Gran % (Auto) 0.200, Neut % (Auto) 47.9, Lymph % (Auto) 40.5, [place] % (Auto) 9.9, Eos % (Auto) 1.3, Baso % (Auto) 0.2, Absolute Neuts (auto) 4.1, Absolute Lymphs (auto) 3.51, Nucleated RBC % 0, Sodium 133, Potassium 4.7, Chloride 95 L, Carbon Dioxide 26.2, Anion Gap 12, BUN 12, Creatinine 0.90, Estim Creat Clear Calc 86.89, Est GFR (MDRD) Non-Af 91, BUN/Creatinine Ratio 13.2, Glucose 107 H, Calcium 8.8, Magnesium 2.4 H, Troponin T High Sens 22, TSH 1.080 07/19/25 23:26: Troponin T Hi Sens 2 Hr 22, NT pro BNP II 422 07/20/25 02:17: Troponin T Hi Sens 4Hr 27 H 07/20/25 06:05: WBC 6.6, RBC 4.56 L, Hgb 14.6, Hct 43.2, MCV 94.7 H, MCH 32.0, MCHC 33.8, RDW Std Deviation 49.3 H, RDW Coeff of Hair 14.2, Plt Count 142 L, MPV 9.1, Immature Gran % (Auto) 0.500, Neut % (Auto) 47.0, Lymph % (Auto) 41.1 H, [place] % (Auto) 9.4, Eos % (Auto) 1.7, Baso % (Auto) 0.3, Absolute Neuts (auto) 3.1, Absolute Lymphs (auto) 2.71, Nucleated RBC % 0, Sodium 137, Potassium 4.3, Chloride 103, Carbon Dioxide 25.5, Anion Gap 9, BUN 9, Creatinine 0.78, Estim Creat Clear Calc 98.72, Est GFR (MDRD) Non-Af 95, BUN/Creatinine Ratio 11.3, Glucose 93, Calcium 8.4, Phosphorus 3.9, Total Bilirubin 0.85, AST 21, ALT 11, Alkaline Phosphatase 71, Total Protein 6.0, Albumin 3.7, Globulin 2.3, Albumin/Globulin Ratio 1.6 07/20/25 10:35: Urine Color Yellow, Urine Clarity Clear, Urine pH 7.0, Ur Specific [place] 1.010, Urine Protein 15 H, Urine Glucose (UA) 1000 H, Urine Ketones Negative, Urine Occult Blood Negative, Urine Nitrite Negative, Urine Bilirubin Negative, Urine Urobilinogen Normal, Ur Leukocyte Esterase Negative, Urine RBC 0 SEEN, Urine WBC 0 SEEN, Ur Squamous Epith Cells 0 SEEN, Urine Bacteria 0 SEEN, Urine Mucus 0 SEEN Cardiology Labs/Tests 07/19/25 21:33: WBC 8.7, RBC 4.71, Hgb 15.2, Hct 44.3, MCV 94.1 H, MCH 32.3 H, MCHC 34.3, Plt Count 145 L, MPV 9.2, Immature Gran % (Auto) 0.200, Neut % (Auto) 47.9, Lymph % (Auto) 40.5, [place] % (Auto) 9.9, Eos % (Auto) 1.3, Baso % (Auto) 0.2, Absolute Neuts (auto) 4.1, Nucleated RBC % 0, Sodium 133, Potassium 4.7, Chloride 95 L, Carbon Dioxide 26.2, Anion Gap 12, BUN 12, Creatinine 0.90, Est GFR (MDRD) Non-Af 91, BUN/Creatinine Ratio 13.2, Glucose 107 H, Calcium 8.8, Magnesium 2.4 H 07/20/25 06:05: WBC 6.6, RBC 4.56 L, Hgb 14.6, Hct 43.2, MCV 94.7 H, MCH 32.0, MCHC 33.8, Plt Count 142 L, MPV 9.1, Immature Gran % (Auto) 0.500, Neut % (Auto) 47.0, Lymph % (Auto) 41.1 H, [place] % (Auto) 9.4, Eos % (Auto) 1.7, Baso % (Auto) 0.3, Absolute Neuts (auto) 3.1, Nucleated RBC % 0, Sodium 137, Potassium 4.3, Chloride 103, Carbon Dioxide 25.5, Anion Gap 9, BUN 9, Creatinine 0.78, Est GFR (MDRD) Non-Af 95, BUN/Creatinine Ratio 11.3, Glucose 93, Calcium 8.4, Phosphorus 3.9, Total Bilirubin 0.85 07/20/25 10:35: Urine Color Yellow, Urine Clarity Clear, Urine pH 7.0, Ur Specific [place] 1.010, Urine Protein 15 H, Urine Glucose (UA) 1000 H, Urine Ketones Negative, Urine Occult Blood Negative, Urine Nitrite Negative, Urine Bilirubin Negative, Urine Urobilinogen Normal, Ur Leukocyte Esterase Negative, Urine RBC 0 SEEN, Urine WBC 0 SEEN Rhythm: EKG: ECHO: Stress Test: Cardiac Cath: PCI: CT Surgery: Holter monitor: EPS: PPM: CXR: Chest CT Scan: Radiography Diagnostic Testing: Radiology Impression Chest X-Ray 07/19/25 22:15 IMPRESSION: Mild cardiomegaly and mild pulmonary vascular congestion. Reading Location: [facility] Risk Score for UA/STEMI Assesmment (YES = 1) Risk Stratification Applicable: No
--- NOTE | 2025-07-20 11:22 | DCINST_ITS ---
Discharge Instructions DC O2, CPAP, BIPAP needs Home O2 Discharge instructions: No Dressing / Incision Discharge Activity: Return to Normal Activity Dressing / Incision Call your doctor if you observe: Fever of 101 or Higher, Shortness of breath, Dizziness, Fainting spells, Swelling in the ankles, Chest pain and Increased palpitations (irregular heartbeat) Follow Up Care Test Results: Test results from this visit will be discussed in further detail at your follow- up appointment, if applicable. Discharge Plan Admission Admit Date/Time: 07/20/25 01:52 Attending Provider: Rudy Gray Primary Care Provider: Lee Mathews Consulting Providers: Charity Humphrey; Josette Yin; Beatriz Staples; Lauren Pryor; Ana Guzman; Marcelo Barber; Gaston Villafana; Carlton Keyes; Stanley Umana; Krissy Freitas; Madhu Bautista; Holli Caceres; Melanie Thomas; Christofer Pineda; Ham Yun; Swapnil Blankenship NP; Shanti Fuentes; Mihai Rodriguez; Stanley Gonzalez Discharge Orders/Prescriptions Prescriptions: New metoprolol tartrate 25 mg Tablet 25 mg PO BID 30 Days Qty: 60 3RF Continued Eliquis 5 mg tablet 5 mg PO BID Qty: 60 11RF Jardiance 10 mg tablet 10 mg PO DAILY Qty: 30 11RF spironolactone 25 mg tablet 25 mg PO DAILY Qty: 30 11RF Rx Instructions: Hold for serum potassium more than 5.0 lisinopril 5 mg tablet 5 mg PO QDAY Qty: 30 11RF furosemide 40 mg tablet 40 mg PO DAILY Qty: 90 3RF Discontinued metoprolol tartrate 50 mg tablet 50 mg PO BID Qty: 60 11RF Referrals / Follow Up: Lee Mathews MD [Primary Care Provider] - Within 1 Week Madhu Bautista MD [Med Staff - Active Staff] - Within 2 Weeks Disposition Disposition (needs filled in before D/C Order can be placed): Home, Self Care
--- NOTE | 2025-07-20 16:00 | PCM.DC.SUM ---
Providers Date of Admission: 07/20/25 Primary Care Physician: Dr. Lee Mathews MD Consultations 07/20/25 02:27 Consult: Cardiology Routine Consulting Provider: Antolin Degroot Reason for Consult: Symptomatic bradycardia and frequent PVCs. EMERGENT Consult: No MD Notified: Yes Date Notified: 07/20/25 Time Notified: 01:54 Method of Notification: ED Physician Initiated Method of Consult:: In-Person Reason For Visit: SYMPTOMATIC BRADYCARDIA WITH FREQUENT PVC'S Diagnosis Discharge Diagnosis (1) Anxiety in acute stress reaction: Status: Acute Code(s): F41.1 - Generalized anxiety disorder; F43.0 - Acute stress reaction (2) Adverse drug reaction: Status: Acute Code(s): T50.905A - Adverse effect of unspecified drugs, medicaments and biological substances, initial encounter Qualifiers: Encounter type: initial encounter Qualified Code(s): T50.905A - Adverse effect of unspecified drugs, medicaments and biological substances, initial encounter (3) Lightheadedness: Status: Acute Code(s): R42 - Dizziness and giddiness (4) History of cardioversion: Status: Acute Code(s): Z92.89 - Personal history of other medical treatment (5) Chronic anticoagulation: Status: Acute Code(s): Z79.01 - superintendent terminal (current) use of anticoagulants (6) Premature ventricular beats: Status: Acute Code(s): I49.3 - Ventricular premature depolarization Medications at Discharge Home Medications apixaban 5 mg tablet (Eliquis) 5 mg PO BID blood thinner #60 tabs 04/03/25 empagliflozin 10 mg tablet (Jardiance) 10 mg PO DAILY #30 tabs 04/03/25 spironolactone 25 mg tablet 25 mg PO DAILY #30 tabs 04/03/25 lisinopril 5 mg tablet 5 mg PO QDAY #30 tabs 05/30/25 furosemide 40 mg tablet 40 mg PO DAILY #90 tabs 06/19/25 metoprolol tartrate 25 mg tablet 25 mg PO BID 30 days #60 tabs 07/20/25 Hospital Course Operations None Procedures None Summary of Care Provided Minutes Spent on Discharge: 34 Hospital Course: Per HPI: KELVIN LEE, is a 70 M with a past medical history of essential hypertension; on lisinopril, furosemide, spironolactone and metoprolol twice daily, obesity; with BMI of 35 this admission, tobacco abuse; with subsequent COPD, chronic moderate thrombocytopenia; with range from 83K-145K since February 2025, history of depression with anxiety; currently not on treatment, history of appendectomy (2010), PAF; on apixaban, history of chronic systolic CHF; with LVEF ~10-20% treated with empagliflozin with improvement to LVEF ~55% with mildly dilated aortic root (07/02/2025) will, history of frequent PVC's and history of PAF; with RVR causing visit to this ER yesterday with patient undergoing DCCV after he experienced transient hypotension attributed to diltiazem prior to being sent home who now re-presents to [facility] ER complaining of lightheadedness. Mr. Lee reports he got home from the ER yesterday after his cardioversion and went to bed around 8 PM and slept for 12 hours except for when he was awakened with need to urinate. Then today he noted feeling generally weak and lightheaded so he checked his vital signs and noted his blood pressure was 140/77 mmHg and his heart rate was 58 bpm. By dinnertime he began to feel escalating anxiety with his heart rate dropping to ~48 bpm so he drank 16 ounce a glass of ice water with some improvement of his heart rate with patient suspecting he may have been dehydrated with generalized weakness which caused him to come in for further evaluation and treatment. He denies associated fever, chills, runny nose, sore throat, ear pain, chest pain, palpitations, heart racing, shortness of breath, cough, abdominal pain, nausea, vomiting, diarrhea, constipation, dysuria, hematuria, headache, focal neurologic deficits or rash. In the ER patient was noted to have symptomatic bradycardia of 35 bpm with frequent PVCs present on admission with patient improving after administration of IV fluids but was noted to have an oxygen saturation of ~85% with ambulation with CXR that revealed mild cardiomegaly and mild pulmonary vascular congestion with a corresponding normal-range NT pro-BNP II of 422 pg/mL with otherwise unremarkable laboratory studies and vital signs except for moderate Thrombocytopenia 145K present on admission which is at the upper end of his recent normal range. The ER physician then spoke to the correctional counselor/case manager on-call who recommends IV diuresis and telemetry overnight as he will likely require medication adjustments. The patient was then admitted to the PCU for ongoing care for status is expected to extend beyond 2 midnights. Hospital Course: 1. Symptomatic bradycardia after cardioversion for paroxysmal A-fib?70-year-old male with a history of paroxysmal A-fib went into RVR and came into the emergency room on 07/18/2025 where he was cardioverted. He presented back to the hospital approximately 24 hours later with dizziness and symptomatic bradycardia. He was noted to have frequent PVCs as well as lightheadedness and dizziness. They were attempted to discharge him home however when they got him up to ambulate and he went down to an 85% on room air and so recommended admission. He did not require any oxygen today either at rest or with ambulation and his heart rate recovered into the low to mid 60s. I discussed the case with cardiology who felt that it would be beneficial to continue him on the beta-shaniqua given his PVCs but otherwise that he would be stable for discharge. I discussed with him the plan for discharge today and he expressed understanding of the risks and benefits of going home and he would like to go home today. He was trialed on metoprolol 25 mg p.o. twice daily prior to discharge and it did not cause any worsening dizziness or further bradycardia. I do recommend close outpatient follow-up with his correctional counselor/case manager. I also recommend follow-up with his PCP in 3 to 5 days for outpatient monitoring and medication adjustments. 2. Essential hypertension, hyperlipidemia, chronic systolic CHF are chronic medical conditions which complicate his care. His home medications were continued where appropriate. He was discharged early secondary to rapid recovery and patient preference. Physical Exam Narrative General: Alert, Oriented x3, Cooperative, No apparent distress HEENT: Atraumatic, PERRLA, EOMI, Normocephalic Oral: Moist Mucosa Neck: Supple, No JVD Lungs: Diminished, Normal air movement, No rhonchi, No wheeze, No rales Cardiovascular: Regular rate, Regular Rhythm, Normal S1, Normal S2, No murmurs Abdomen: Soft, Non Tender, Non-Distended, No Hepato-splenomegaly Extremities: No edema, Capillary Refill Less than 3 Seconds Skin: No rashes, No breakdown Musculoskeletal: No Tenderness to Palpation of Joints or Extremities Neurological: No focal neurological deficits, Motor Exam 5/5 strength throughout, Sensory exam intact to light touch and pain Psych/Mental Status: Normal Affect, Appropriate Weight / BMI Weight Weight: 226 lb 3.108 oz Body Mass Index (BMI) 33.5 ABG / Lab / Microbiology Data 07/20/25 06:05 07/20/25 06:05 Laboratory: Laboratory Results - last 24 hr 07/19/25 21:33: WBC 8.7, RBC 4.71, Hgb 15.2, Hct 44.3, MCV 94.1 H, MCH 32.3 H, MCHC 34.3, RDW Std Deviation 48.9 H, RDW Coeff of Hair 14.0, Plt Count 145 L, MPV 9.2, Immature Gran % (Auto) 0.200, Neut % (Auto) 47.9, Lymph % (Auto) 40.5, [place] % (Auto) 9.9, Eos % (Auto) 1.3, Baso % (Auto) 0.2, Absolute Neuts (auto) 4.1, Absolute Lymphs (auto) 3.51, Nucleated RBC % 0, Sodium 133, Potassium 4.7, Chloride 95 L, Carbon Dioxide 26.2, Anion Gap 12, BUN 12, Creatinine 0.90, Estim Creat Clear Calc 86.89, Est GFR (MDRD) Non-Af 91, BUN/Creatinine Ratio 13.2, Glucose 107 H, Calcium 8.8, Magnesium 2.4 H, Troponin T High Sens 22, TSH 1.080 07/19/25 23:26: Troponin T Hi Sens 2 Hr 22, NT pro BNP II 422 07/20/25 02:17: Troponin T Hi Sens 4Hr 27 H 07/20/25 06:05: WBC 6.6, RBC 4.56 L, Hgb 14.6, Hct 43.2, MCV 94.7 H, MCH 32.0, MCHC 33.8, RDW Std Deviation 49.3 H, RDW Coeff of Hair 14.2, Plt Count 142 L, MPV 9.1, Immature Gran % (Auto) 0.500, Neut % (Auto) 47.0, Lymph % (Auto) 41.1 H, [place] % (Auto) 9.4, Eos % (Auto) 1.7, Baso % (Auto) 0.3, Absolute Neuts (auto) 3.1, Absolute Lymphs (auto) 2.71, Nucleated RBC % 0, Sodium 137, Potassium 4.3, Chloride 103, Carbon Dioxide 25.5, Anion Gap 9, BUN 9, Creatinine 0.78, Estim Creat Clear Calc 98.72, Est GFR (MDRD) Non-Af 95, BUN/Creatinine Ratio 11.3, Glucose 93, Calcium 8.4, Phosphorus 3.9, Total Bilirubin 0.85, AST 21, ALT 11, Alkaline Phosphatase 71, Total Protein 6.0, Albumin 3.7, Globulin 2.3, Albumin/Globulin Ratio 1.6 07/20/25 10:35: Urine Color Yellow, Urine Clarity Clear, Urine pH 7.0, Ur Specific [place] 1.010, Urine Protein 15 H, Urine Glucose (UA) 1000 H, Urine Ketones Negative, Urine Occult Blood Negative, Urine Nitrite Negative, Urine Bilirubin Negative, Urine Urobilinogen Normal, Ur Leukocyte Esterase Negative, Urine RBC 0 SEEN, Urine WBC 0 SEEN, Ur Squamous Epith Cells 0 SEEN, Urine Bacteria 0 SEEN, Urine Mucus 0 SEEN Radiography Diagnostic Testing: Radiology Impression Chest X-Ray 07/19/25 22:15 IMPRESSION: Mild cardiomegaly and mild pulmonary vascular congestion. Reading Location: [facility] D/C Instructions Call your doctor if you observe: Fever of 101 or Higher, Shortness of breath, Dizziness, Fainting spells, Swelling in the ankles, Chest pain and Increased palpitations (irregular heartbeat) DC O2, CPAP, BIPAP Needs Home O2 Discharge instructions: No Meaningful Use Info Meaningful Use Meaningful Use Diagnoses (Choose all that apply): None applicable Discharge Plan Admission Admit Date/Time: 07/20/25 01:52 Attending Provider: Rudy Gray Primary Care Provider: Lee Mathews Consulting Providers: Charity Humphrey; Josette Yin; Beatriz Staples; Lauren Pryor; Ana Guzman; Marcelo Barber; Gaston Villafana; Carlton Keyes; Stanley Umana; Krissy Freitas; Madhu Bautista; Holli Caceres; Melanie Thomas; Miriam,Christofer; Ham Yun; Swapnil Blankenship NP; Shanti Fuentes PA; Mihai Rodriguez; Stanley Gonzalez Discharge Orders/Prescriptions Prescriptions: New metoprolol tartrate 25 mg Tablet 25 mg PO BID 30 Days Qty: 60 3RF Continued Eliquis 5 mg tablet 5 mg PO BID Qty: 60 11RF Jardiance 10 mg tablet 10 mg PO DAILY Qty: 30 11RF spironolactone 25 mg tablet 25 mg PO DAILY Qty: 30 11RF Rx Instructions: Hold for serum potassium more than 5.0 lisinopril 5 mg tablet 5 mg PO QDAY Qty: 30 11RF furosemide 40 mg tablet 40 mg PO DAILY Qty: 90 3RF Discontinued metoprolol tartrate 50 mg tablet 50 mg PO BID Qty: 60 11RF Referrals / Follow Up: Lee Mathews MD [Primary Care Provider] - Within 1 Week Madhu Bautista MD [Med Staff - Active Staff] - Within 2 Weeks Disposition Disposition (needs filled in before D/C Order can be placed): Home, Self Care Charges/Coding Visit Charges Inpatient E&M: 02699 Disch Hosp >30min
== END 2025-07-20 14:05 | disposition home or self-care (01) | DRG 309 ==
LOC: ED 07-20 00:26 → PCU 07-20 02:02
PROVIDERS: Admitting Provider Internal Medicine; Emergency Provider Emergency Medicine; PCP Family Medicine; Visit Provider Family Medicine
DX: I47.20 Ventricular tachycardia, unspecified (principal); I50.22 Chronic systolic (congestive) heart failure; I13.0 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 1 through stage 4 chronic kidney disease, or unspecified chronic kidney disease; D69.6 Thrombocytopenia, unspecified; J44.9 Chronic obstructive pulmonary disease, unspecified; E66.9 Obesity, unspecified; R00.1 Bradycardia, unspecified; I48.0 Paroxysmal atrial fibrillation; E78.5 Hyperlipidemia, unspecified; F17.290 Nicotine dependence, other tobacco product, uncomplicated; N18.2 Chronic kidney disease, stage 2 (mild); I49.3 Ventricular premature depolarization; F41.1 Generalized anxiety disorder; Z68.35 Body mass index [BMI] 35.0-35.9, adult; R09.02 Hypoxemia; T44.7X5A Adverse effect of beta-adrenoreceptor antagonists, initial encounter; Z79.01 Long term (current) use of anticoagulants; Z79.899 Other long term (current) drug therapy; Z90.49 Acquired absence of other specified parts of digestive tract; Z92.89 Personal history of other medical treatment
CPT/HCPCS: 36415; 71045; 80048; 80053; 81001; 83735; 83880; 84100; 84443; 84484; 85025; 93005; 96374; 96375; 99283; 99285; A4216; J1938

== ENCOUNTER → 2025-08-01 | Outpatient (CLI) | payer MEDICARE, SELFPAY ==
[2025-07-24 07:51] VITALS: BMI 33.6
== END | disposition home or self-care (01) ==
LOC: PSN 13:52
PROVIDERS: PCP Family Medicine; Referring Provider Nurse Practitioner Gerontology; Visit Provider Nurse Practitioner Gerontology
DX: I48.0 Paroxysmal atrial fibrillation (principal)
CPT/HCPCS: 93225; 93226

== ENCOUNTER 2025-08-06 15:15 | Outpatient (RCR) | payer MEDICARE, SELFPAY ==
[2025-06-27 08:44] VITALS: BMI 34.4
--- NOTE | 2025-07-24 07:32 | PCM.CR.ITP ---
Exercise - Initial Assessment Physician Prescribed Exercise Modalities: Treadmill, Schwinn Airdyne AD-7 and SciFit Stepper Nutrition - Initial Assessment Weight Mgt (Other Care) Height: 5 ft 9 in Weight:: 228 lb BMI: 33.6 Psychosocial - Initial Assess Target Goals Target Goals Referral to Behavioral Health PS - Interventions: Yes: Attend Stress Management Classes Patient Health Questionnaire PHQ-9 Screening 90-Day Re-eval Assessment: 1. Little interest or pleasure in doing things: Not at all 2. Feeling down, depressed, or hopeless: Not at all 3. Trouble falling or staying asleep, or sleeping too much: Several days 4. Feeling tired or having little energy: Several days 5. Poor appetite or overeating: Not at all 6. Feeling bad about yourself -- or that you are a failure or have let yourself or your family down: Not at all 7. Trouble concentrating on things, such as reading the newspaper or watching television: Not at all 8. Moving or speaking so slowly that other people could have noticed. Or the opposite - being so fidgety or restless that you have been moving around a lot more than usual: Not at all 9. Thoughts that you would be better off , or of hurting yourself in some way: Not at all How difficult have these problems made it for you to do your work, take care of things at home, or get along with other people?: Somewhat difficult Total Score: 2 Self-Efficacy 6-Item Scale 90-Day Re-eval Assessment: We would like to know how confident you are in doing certain activities. Please select your confidence level for: Fatigue Select Number: 7 Physical Discomfort or Pain Select Number: 10 Emotional Distress Select Number: 9 Other Symptoms or Health Problems Select Number: 10 Different Tasks and Activities Select Number: 10 Medication Select Number: 10 Total Score:: 9 Nutrition Survey Nutrition Survey Instructions Scoring Instructions Exercise - 30-day Assessment Physician Prescribed Exercise Modalities: Treadmill, Schwinn Airdyne AD-7 and SciFit Stepper Exercise - 60-day Assessment Physician Prescribed Exercise Modalities: Treadmill, Schwinn Airdyne AD-7 and SciFit Stepper Exercise - 90-day Assessment Visit Date of Eval: 07/24/25 Session #:: 31 Physician Prescribed Exercise Modalities: Treadmill, Schwinn Airdyne AD-7 and SciFit Stepper Frequency: 3x/week for 12 weeks [36 sessions] Intensity: 60-80% of age predicted maximum heart rate reserve Duration: 30 - 45 minutes Current METSs:: 5.3 Target Heart Rate:: 89-118 Resting Blood Pressure: 98/62 Maximum Exercise Blood Pressure: 108/70 EKG Type: SB-NSR w/ occas PVC, vent bigeminy, one couplet. Current Physical Activity or Exercising minutes: 07/18/25 pt in A-fib and taken to ED. Pt cardioverted at that time. Outcomes & Goals Goals:: Verbalizes understanding of THR, RPE & goal METS by session 6, Documents in home exercise log/reports 30 min aerobic 5 day/wk by DC, Demonstrates accurate pulse taking by DC and Other additional outcome/goals: see below Intervention & Plan Exercise Program Goals: Instruct on personal THR & RPE, Instruct on MET level & personal MET goal, Show patient to take own pulse /validate performance until accurate, Instruct on home exercise and Other additional plan/int Physical Activity Home Exercise Physical Activity - Home Exercise: Safe Exercise, Warm-up, Self-monitoring, Cool-Down, Home Exercise > 30 min Daily and Sitting Time <3 hours/daily Outcomes & Goals Outcomes/Goals: Demonstrates correct Warm-up/exercise Cool-Down (S3) if = 2.5 METs, Verbalizes symptoms of exercise intolerance by Session 3 (S3), Demonstrate safe equipment use (S3) & follows exercise prescrition (6) and Other: See below Intervention & Plan Plan/Intervention: Instruct warm-up & cool-down if exercising at > 2 METs, Instruct on symptoms of exercise intolerance & actions to take, Instruct & monitor on saf, Assess intial functional capacity & safety risk and Other See below 30-day Reassessments 30 day Reassessments:: Met Reassessment Notes & Comments:: Pt has 6 sessions remaining. Pt understands the benefits of exercise. Pt will be given his exercise prescription as well as community resources to continue his exercise upon graduation. Exercise - Final/Discharge Physician Prescribed Exercise Modalities: Treadmill, Schwinn Airdyne AD-7 and SciFit Stepper Nutrition - 30-Day Assessment Weight Mgt (Other Care) Height: 5 ft 9 in Weight:: 228 lb BMI: 33.6 Nutrition - 60-Day Assessment Weight Mgt (Other Care) Height: 5 ft 9 in Weight:: 228 lb BMI: 33.6 Core - 30-Day Assessment Hypertension [place] [employer] Hypertension Guidelines Reassessment Notes & Comments:: Pt's BP's are within AHA normal limits. Core - Final Assessment Hypertension [place] [employer] Hypertension Guidelines Reassessment Notes & Comments:: Pt's BP's are within AHA normal limits. Core - 90 Day Assessment Visit Date of Eval: 07/24/25 Session #:: 31 Medication Compliance Preventative Medication(s):: JACKLYN inhibitor, Beta shaniqua and Eliquis H/O mental health issues: depression, anxiety, or addiction?: No Doesn?t believe in the benefits of treatment?: No Believes medications are unnecessary or harmful?: No Has a concern about medication side effects?: No Expresses concern over the cost of medications?: No Outcomes/Goals: Verbalizes medications,desired effect & common side effects @ DC, Pt self-reports following medication regimen, Keeps card in wallet w/medications listed by DC and Other additional outcome/goals: Interventions/plans: Instruct on medication effects & side effects, Review medication list w/patient every two weeks, Instruct importance of taking meds as ordered & assist problem solving and Other additional Tobacco Use Tobacco Use: Cigars (1 a day) 30-day Reassessments:: Progressing Reassessment Notes & Comments:: Pt has attended smoking class. Will continue to encourage. Hypertension Resting Blood Pressure:: 98/62 [place] [employer] Hypertension Guidelines Peak Exercise Blood Pressure:: 108/70 Outcomes/Goals: Able to verbalize/achieve optimal blood pressure <130/80, Incorporates diet changes & exercise for blood pressure control by DC and Other additional outcomes/goals Interventions/plan: Instruct on optimal blood pressure, hypertension & medications, Instruct on effects of sodium, alcohol, stress, exercise &hypertension and Other additional plan/interventions 30 day Reassessments:: Met Reassessment Notes & Comments:: Pt's BP's are within AHA normal limits. Tobacco Cessation Referral Smoking Cessation Referral:: No Individual Education/Counseling:: No Education Schedule Given:: Yes Psychosocial - 30-Day Assess Target Goals Target Goals Referral to Behavioral Health PS - Interventions: Yes: Attend Stress Management Classes Psychosocial - 60-Day Assess Target Goals Target Goals Referral to Behavioral Health PS - Interventions: Yes: Attend Stress Management Classes Psychosocial - -Day Assess VIsit Date of Eval: 07/24/25 Session #:: 31 History of previous Mental disease:: No Target Goals Target Goals Psychosocial Test Tool Used:: PHQ-9 Questionnaire phq-9 Severity See PHQ-9 Score: 2 Referral to Behavioral Health PS - Interventions: Yes: Attend Stress Management Classes Outcomes/Goals: See list Psychosocial Outcomes/Goals:: ID's personal stressors & 2 strategies to manage stress by discharge and Other Additional outcome/goals: Intervention/Plan: See List Interventions/Plan:: Assess stressors,coping strategies & signs of derpression on admission, Instruct/assist pt to develop coping & personal stress Mgt strategies, Refer to Behavioral Health if appropriate, Refer to Physician if appropriate, Instruct patient to recognize signs & symptoms of depression, Instruct patient to recog and Other additional plan/intervention 30-day Reassessments: 30 day Reassessments:: Met Reassessment Notes & Comments:: Pt has attended stress management class. Psychosocial - Final Assessmen Target Goals Target Goals Referral to Behavioral Health PS - Interventions: Yes: Attend Stress Management Classes Nutrition - 90-Day Assessment Program Goals Nutrition Program Goals Patient has diagnosis of Hyperlipidemia (ICD E78)?: No Visit Date of Eval: 07/24/25 Session #:: 31 (Nutrition score of 1) Cholesterol/Lipids (Other Core Measures) Determine presence & major risk factors that modify LDL goal: Cigarette smoking, Hypertension or hypertensive medication, Low HDL cholesterol <40 mg/dL*, Family history of premature CHD in Male < 55 years: female <65 yearsFa and Age men > 45 years; women >/= 55 years Outcomes/Goals: Pt IDs own risk factors & lifestyle modifications by Session 10, Verbalizes symptoms of angina & response by session 3., Pt independently manages and Other Additional Outcomes/Goals: Intervention/Plan: Advocate for lipid panel cholesterol medication if applicable, Instruct on personal lipid levels & lipid goals/NCEP guidelines, Instruct on cholesterol and Other additional plan/int Diabetes (Other Core Measures) Diabetes Type: Not Applicable Weight Mgt (Other Care) Height: 5 ft 9 in Weight:: 228 lb BMI: 33.6 Diagnosis Overweight/Obesity BMI> 30% ICD-10 E66: Yes Diagnosis High BMI/Morbid Obesity BMI> 35% ICD-10 Z68: No Outcomes/Goals: Pt sets, maintains & shows weight loss goal & trend during rehab and Other additional outcomes/goals Intervention/Plan: Instruct on ideal BMI & set weight loss goal w/patient, Assist pt to ID & incorporate diet changes for weight loss by S9, Refer to Structured Weight Loss program as appropriate, Encourage goal of using 250-300dcal per session for weight loss and Other additional plan/interventions 30 day Reassessments:: Progressing Reassessment Notes & Comments:: Heart healthy diet encouraged. Weight loss encouraged in nutrition class. Healthy Eating Habits Will attend diet classes:: Yes Outcomes/Goals:: Consume diet rich in vegs,fruits,whole grain/high fiber,fish,lean meat, Limit sat/trans fats,cholesterol & added salts & sugars and Other additional outcome/goals: Intervention/Plan:: Assess current eating habits and Other Additional plan/interventions 30-day Reassessments:: Met Reassessment Notes & Comments:: Pt attended nutrition class. Education Gave educational materials for:: Signs & symptoms of hypoglycemia, Signs & symptoms of hyperglycemia, Relate diabetes to coronary artery disease and Healthy eating Nutrition - Final Assessment Weight Mgt (Other Care) Height: 5 ft 9 in Weight:: 228 lb BMI: 33.6
[2025-07-24 07:38] VITALS: BP 98/62
[2025-07-24 07:51] VITALS: BMI 33.6
[2025-07-24 07:58] VITALS: BP 98/62
== END 2025-08-19 23:59 ==
LOC: CR 15:15
PROVIDERS: PCP Family Medicine; Referring Provider Internal Medicine Cardiovascular Disease; Visit Provider Internal Medicine Cardiovascular Disease
DX: R93.1 Abnormal findings on diagnostic imaging of heart and coronary circulation (principal); I48.91 Unspecified atrial fibrillation; R06.00 Dyspnea, unspecified; Z87.09 Personal history of other diseases of the respiratory system; F17.200 Nicotine dependence, unspecified, uncomplicated
CPT/HCPCS: 93798